=== PATIENT | male | born 1975 | race Caucasian/White ===

== ENCOUNTER → 2025-04-01 | Outpatient (CLI) | payer MEDICAID, SELFPAY ==
[2025-04-01 13:36] LABS: Hematocrit 44.3 % (40-54); Hemoglobin 16.5 g/dL (13.0-16.5); Immature Granulocytes Count 0.020 X10^3/uL (0.0-0.0); Mean Corp Hgb Conc 37.2 g/dL (32-36); Mean Corpuscular Volume 103.0 fL (80-94); Mean Platelet Vol. 10.5 fl (6.2-12.0); NRBC Flagged by Analyzer 0 % (0-5); POSITIVE COUNT YES; RBC Distribution Width CV 14.1 % (11.6-14.6); RBC Distribution Width SD 53.1 fl (35.1-43.9); Red Blood Count 4.30 M/mm3 (4.6-6.2); White Blood Count 8.9 K/mm3 (4.4-11.0)
[2025-04-01 14:01] LABS: Differential Indicated SCAN CRITERIA MET
[2025-04-01 14:03] LABS: Cholesterol 235 mg/dL (<=200); Low Density Lipoprotein Calc. 146 mg/dL; Triglycerides 180 mg/dL; Very Low Density Lipoprotein 36 mg/dL (5-40); cholesterol:hdl ratio screen 4.12
[2025-04-01 14:08] LABS: AST(SGOT) 175 U/L (<=37); Alanine Aminotransfer ALT/SGPT 91 U/L (<=46); Albumin, Serum 4.1 g/dL (3.5-5.0); Alkaline Phosphatase 170 U/L (40-129); Anion Gap 14 (5-15); BUN 6 mg/dL (4-19); BUN/Creat Ratio 9.3 RATIO (10-20); Calcium,Total 9.1 mg/dL (7.6-11.0); Carbon Dioxide 23.4 mmol/L (21.0-32.0); Chloride 101 mmol/L (98-108); Globulin 3.0 g/dL (2.2-4.2); Glucose 110 mg/dL (70-99); Potassium 4.1 mmol/L (3.3-5.1)
== END | disposition home or self-care (01) ==
LOC: LAB 12:52
DX: E78.5 Hyperlipidemia, unspecified (principal); I10 Essential (primary) hypertension
CPT/HCPCS: 36415; 80053; 80061; 85025

== ENCOUNTER → 2025-04-29 | Outpatient (CLI) | payer MEDICAID, SELFPAY ==
--- NOTE | 2025-04-29 09:33 | US_ITS ---
PROCEDURE: ABD LIMITED W/ ELASTOGRAPHY REASON FOR EXAM: ABNORMAL LEVELS OF OTHER SERUM ENZYMES COMPARISON: None. TECHNIQUE: Procedure Code: [id number] Modality: US Procedure: ABD LIMITED W/ ELASTOGRAPHY Right upper quadrant abdominal ultrasound. [facility] ElastQ Imaging shear wave elastography for non-invasive assessment of liver tissue stiffness. [facility] EPIQ Elite. FINDINGS: LIVER: Size: Enlarged (hepatomegaly) Length: 21.8 cm Echotexture: Diffusely echogenic suggesting fatty infiltration Contour: Normal Lesions: None identified Elastography: EQI Med: 12.1 kPa EQI Med Donato: 2.0 m/s IQR/Med: 27.9 %* GALLBLADDER: No stones sludge wall thickening or tenderness. COMMON BILE DUCT: Normal measuring 3.5 mm . PANCREAS: Normal Visualized portions of the right kidney are unremarkable. No right upper quadrant ascites. US/ABD Limited w/ Elastography IMPRESSION: SEVERE HEPATIC FIBROSIS / CIRRHOSIS Hepatomegaly. Diffuse fatty infiltration of the liver. Reference Values: SRU <1.37 m/s (5.7kPa): No to mild fibrosis 1.37 m/s - 2.2 m/s: Moderate to severe fibrosis >2.2 m/s (15kPa): Significant fibrosis / cirrhosis METAVIR Score F2 or higher: 1.34 m/s (5.7kPa) F3 or higher: 1.55 m/s (7.3kPa) F4: 1.80 m/s (10kPa) * If the IQR/Med is >30%, the variance in the measurements is a large and the a ccuracy of the measurement may be in question. Reading Location: [place] [id number]
--- OUTSIDE RECORDS SUMMARY | 2025-04-29 09:48 | XMS RPT_ITS | CCD ---
Author Organization [facility] Inform ion Partnership [employer]HE[employer]MANENT [employer] ARTIST [facility] Care Team Providers Care Quality Tech Name Role Phone NO FAMILY DOCTOR, NO FAMILY DOCTOR Unavailable Unavailable CHRIS KEATING Unavailable Unavailable ESTIVEN ROQUE Attending Unava ilable BRENT, PHYSICIAN Primary Care Unavailable Unavailable Primary Care Provider UnavailMark Boucher MD Primary Care Provider [phone] DINO LINDSAY Attending Unavailable ROBIN MARTINEZ Attending Unavailable ROSALINDA PINEDA Referring Unavailable BRUNA CAPELLAN Attending Unavailab LILLIANA Rebolledo Referring Unavailable LILLIANA KATE Referring Unavailable LILLIANA KATE Attending Unavailable Unavailable Primary Care Provider Unavailabl e MICLAT, MARK S Referring Unavailable MICLAT, MARK S Primary Care Unavailable MICLAT, MARK S Referring Unavailable MICLAT, MARK S Primary Care Unavailable MICLAT, MARK S Referring Unavailable MICLAT, MARK S Primary Care Unavailable MICLAT, MARK S Primary Care Unavailable ISAAC COX Referring Unavailable MICLAT, MARK S Primary Care Unavailable MICLAT, MARK S Referring Unavailable Liz Polk MD Primary Care Provider [phone] LIZ POLK Primary Care Unavailable HARMAN PAYAN Attending Unavailable Beam VSC, Zebulun Referring Unavailable Beam VSC, Zebulun Attending Unavailable Beam VSC, Zebulun Primary Care Unavailable Beam VSC, Zebulun Primary Care Unavailable Beam VSC, Zebulun Referring Unavailable Beam VSC, Zebulun Attending Unavailable Allergies Allergy Classification Reported Allergen(s) Allergy Type Date of Onset Reaction(s) Facility (6 sources) buPROPion; Translations: [BUPROPION] Drug Allergy 3 [facility] Medications Current Medications Medication Drug Class(es) Dates Sig (Normalized) Sig (Original) acetaminophen 325 mg oral tablet (3 sources) Start: 04-06-2023 End: 04-06-2023 take 1 tablet by mouth every eight hours acetaminophen (Tylenol) tablet 975 mg Start: 04-04-2023 End: 04-04-2023 take 975 mg by mouth every six hours for pain 975 mg, oral, Every 6 hours scheduled, First dose on Fri04/04/23 at 1200 If ordered PRN for pain, nurse is permitted to administer this medication for higher pain scores based on patient preference? Yes [id number] actuat albuterol 0.09 mg/actuat metered dose inhaler (13 sources) beta2-Adrenergic Agonist Start: 04-04-2023 take 2 puff(s) by inhalation every four hours for wheezing 2 puff, inhalation, Every 4 hours PRN, shortness of breath, wheezing, Starting on Fri04/04/23 at 1102 Shake well before use. Start: 04-08-2022 take 2 puff(s) by in halation every four hours as needed albuterol HFA (PROVENTIL HFA, VENTOLIN HFA) 90 mcg/actuation inhaler Inhale 2 Puffs as instructed every 4 hours as needed. 0 04/08/2022 Active take 2 puff(s) by in halation every four hours for wheezing albuterol 90 mcg/actuation aerosol powdr breath activated inhaler Inhale 2 puffs every 4 hours if needed for wheezing. Active Comment on above: Inhale 2 Puffs as in structed every 4 hours as needed. cyclobenzaprine hydrochloride 10 mg oral tablet (2 sources) Muscle Relaxant Start : 04-11 End: 04-18 take 1 tablet by mouth three times daily cyclobenzaprine (Flexeril) 10 mg tablet Indications: Closed fracture of multiple ribs of left side with delayed healing, subsequent encounter Take 1 tablet (10 mg) by mouth 3 times a day for 7 days. 21 tablet 04/11/2023 Active dicyclomine hydrochloride 20 mg oral tablet (9 sources) Anticholinergic Start : 03-05 dicyclomine (BENTYL) 20 MG tablet take 1 tablet every 6 hours as needed for abdominal pain 0 03/05/2021 Active Comment on above: Take 20 mg by mouth every 6 hours as needed. docusate sodium 100 mg oral capsule (2 sources) Start : 04-10 End: 05-11 take 1 capsule by mouth twice daily docusate sodium (Colace) 100 mg capsule Indications: Closed fracture of multiple ribs of left side with delayed healing, subsequent encounter Take 1 capsule (100 mg) by mouth 2 times a day. 60 capsule 0 04/11/2023 05/11/2023 Active folic acid 1 mg oral tablet (1 source) Start : 04-04 folic acid (Folvite) tablet 1 mg 12 hr guaiFENesin 600 mg extended release oral tablet (2 sources) Start : 04-06 End: 04-10 guaiFENesin (Mucinex) 12 hr tablet 600 mg 1 ml heparin sodium, porcine 5000 unt/ml injection (1 source) Unfractionated Heparin, Anti-coagulant Start : 04-09 inject 5000 [IU] by subcutaneous injection every eight hours 5,000 Units, subcutaneous, Every 8 hours, First dose on Fri04/09/23 at 1115 hydroCHLOROthiazide 25 mg oral tablet (11 sources) Thiazide Diuretic Start : 04-04 take 12.5 mg by mouth once daily 12.5 mg, oral, Daily, First dose on Fri04/04/23 at 1245 Start: 06-17-2022 End: 07-01-2022 hydroCHLOROthiazide (HYDRODI URIL, ESIDRIX) 12.5 mg capsule Take 12.5 mg by mouth. 0 06/17/2022 Active take 1 tablet by shira once daily hydroCHLOROthiazide (HYDRODiuril) 12.5 mg tablet Take 1 tablet (12.5 mg) by mouth once daily. Active Comment on above: Take 12.5 mg by mout h. 1 ml HYDROmorphone hydrochloride 0.2 mg/ml prefilled syringe (7 sources) Opioid Agonist Start: 04-10-2023 HYDROmorphone PF (Dilaudid) injection 0.2 mg Start: 04-07-2023 End: 04-09-2023 0.5 mg, intravenous, Every 2 hour PRN, pain severe (7-10), second line, pain breakthrough, Starting on Fri04/09/23 at 1105, Phase II/On Unit Start: 04-04-2023 End: 04-04-2023 HYDROmorphone (Dilaudid) inj ection 0.4 mg Start: 04-04-2023 End: 04-05-2023 0.5 mg, intravenous, Every 2 hour PRN, pain breakthrough, Starting on Fri04/04/23 at 1106 iv contrast (will be provided with radiology test) (1 source) Start: 08-16-2022 End: 08-17-2022 inject 1 dose intravenously once iv contrast (will be provided with radiology test) Indications: Vision loss, bilateral , Cecocentral scotoma, bilateral , Katlyn's hereditary optic neuropathy MRI Brain Inject, intravenously, once for 1 dose.No IV access, insert saline lock prior to beginning of sedation, infusion, injection of imaging exam.Discontinue saline lock post exam. If Pt. has a central line or IVAD, may access for administration according to line specific nursing protocol.Once exam is complete flush line and de-access according to line specific nursing protocol in the MR contrast administration guidelines link 1 Each 0 08/16/2022 08/17/2022 Active Comment on above: MRI Brain Inject, intravenously, once fo r 1 dose.No IV access, insert saline lock prior to beginning of sedation, infusion, injection of imaging exam.Discontinue saline lock post exam. If Pt. has a central line or IVAD, may access for administration according to line specific nursing protocol.Once exam is complete flush line and de-access according to line specific nursing protocol in the MR contrast administration guidelines link 1 ml ketorolac tromethamine 30 mg/ml injection (4 sources) Nonsteroidal Anti-inflammatory Drug, Cyclooxygenase Inhibitor Start: 04-09-2023 End: 04-09-2023 ketorolac (Toradol) injection 30 mg Start: 04-04-2023 End: 04-12-2023 take 15 mg intravenously every six hours ketorolac (Toradol) injection 15 mg lidocaine 0.04 mg/mg medicated patch (3 sources) Antiarrhythmic, Amide Local Anesthetic Start: 04-06-2023 lidocaine 4 % patch 1 patch Start: 04-04-2023 End: 04-06-2023 1 patch, transdermal, Admini ster over 12 Hours, Daily, First dose on Fri04/04/23 at 1115 On for 12 hours and off for 12 hours. Start: 04-04-2023 End: 04-04-2023 lidocaine 4 % patch 1 patch lisinopril 20 mg oral tablet (11 sources) Angiotensin Converting Enzyme Inhibitor Start: 07-18-2022 take 20 mg by mouth once daily 20 mg, oral, Daily, First dose on Fri04/04/23 at 1245 Comment on above: Take 20 mg by mouth once daily. loperamide hydrochloride 2 mg oral capsule (3 sources) Opioid Agonist Start: 03-05-2021 loperamide (IMODIUM) 2 MG capsule TAKE 2 CAPSULES for diarrhea followed by one capsule after each loose stool. not to exceed 8/24 hours 0 03/05/2021 Active magnesium oxide 400 mg oral tablet (1 source) Start: 04-05-2023 magnesium oxid e (Mag-Ox) tablet 800 mg melatonin 3 mg oral tablet (1 source) Start: 04-04-2023 melatonin tabl et 6 mg multivitamin with minerals 1 tablet (1 source) Start: 04-04-2023 multivitamin w ith minerals 1 tablet naloxone hydrochloride 40 mg/ml nasal spray (2 sources) Opioid Antagonist Start: 01-21-2025 naloxone (Na rcan) 4 mg/0.1 mL nasal spray Indications: Contusion of rib on right side, initial encounter Administer 1 spray (4 mg) into affected nostril(s) if needed for opioid reversal or respiratory depression for up to 1 dose. May repeat every 2-3 minutes if needed, alternating nostrils, until medical assistance becomes available. 1 each 01/21/2025 Active Start: 04-09-2023 naloxone (Narc an) injection 0.2 mg Nicotine (1 source) Cholinergic Nicotinic Agonist Start: 04-09-2023 End: 05-21-2023 nicotine (Nicoderm CQ) 21 mg/24 hr patch 1 patch ondansetron ODT (Zofran-ODT) disintegrating tablet 4 mg (1 source) Start: 04-04-2023 take 1 tablet by mouth every eight hours as needed ondansetron ODT (Zofran-ODT) disintegrating tablet 4 mg oxyCODONE hydrochloride 5 mg oral tablet (7 sources) Opioid Agonist Start: 01-21-2025 End: 01-23-2025 take 1 tablet by mouth every eight hours for pain oxyCODONE (Roxicodone) 5 mg immediate release tablet Indications: Contusion of rib on right side, initial encounter Take 1 tablet (5 mg) by mouth every 8 hours if needed for severe pain (7 - 10) for up to 2 days. 6 tablet 01/21/2025 01/23/2025 Active Start: 01-21-2025 End: 01-21-2025 take 5 mg by mouth once as needed for pain 5 mg, oral, Once, On Fri01/21/25 at 0545, For 1 dose, If ordered PRN for pain, nurse is permitted to administer this medication for higher pain scores based on patient preference? Yes Start: 04-11-2023 End: 04-18-2023 take 1 tablet by mouth every six hours for pain oxyCODONE (Roxicodone) 5 mg immediate release tablet Indications: Closed fracture of multiple ribs of left side with delayed healing, subsequent encounter Take 1 tablet (5 mg) by mouth every 6 hours if needed for moderate pain (4 - 6) for up to 7 days. 28 tablet 0 04/11/2023 04/18/2023 Active Start: 04-09-2023 take 1 tablet by shira th every four hours as needed 5 mg, oral, Every 4 hours PRN, pain moderate (4-6), first line, Starting on Fri04/09/23 at 1105 If ordered PRN for pain, nurse is permitted to administer this medication for higher pain scores based on patient preference? Yes Start: 04-04-2023 End: 04-10-2023 take 1 tablet by mouth every four hours as needed 10 mg, oral, Every 4 hours PRN, pain severe (7-10), first line, Starting on Fri04/09/23 at 1105 If ordered PRN for pain, nurse is permitted to administer this medication for higher pain scores based on patient preference? Yes oxygen (O2) therapy (2 sources) Start: 04-09-2023 inhalation, Co ntinuous PRN - O2/gases, other, Starting on Fri04/09/23 at 1105 Wean oxygen as tolerated, discontinue when room air pulse oximetry measures greater than 90%. Device: Nasal Cannula Rate in liters per minute: 4 LPM Keep O2 Sat Above: 90% Start: 04-04-2023 End: 04-10-2023 inhalation, Continuous PRN - O2/gases, other, Starting on Fri04/04/23 at 1103 Device: Nasal Cannula Rate in liters per minute: 2 LPM Keep O2 Sat Above: 92% pantoprazole 40 mg delayed release oral tablet (1 source) Proton Pump Inhibitor Start: 04-11-2023 pantoprazole (ProtoNix) EC tablet 40 mg phenylephrine hydrochloride 25 mg/ml ophthalmic solution (2 sources) alpha-1 Adrenergic Agonist Start: 07-25-2022 End: 07-25-2022 PHENYLephrine 2.5 % 1 Drop (AK-DILATE, LORETTA-SYNEPHRINE) Start: 06-26-2022 End: 06-26-2022 PHENYLephrine 2.5 % 1 Drop ( AK-DILATE, LORETTA-SYNEPHRINE) polyethylene glycol [id number] mg powder for oral solution (2 sources) Osmotic Laxative Start: 04-04-2023 End: 04-09-2023 17 g, oral, Daily, First dose on Fri04/09/23 at 1115 Bowel Regimen - for prevention of constipation. sertraline 50 mg oral tablet (16 sources) Serotonin Reuptake Inhibitor Start: 04-04-2023 take 100 mg by mouth once daily 100 mg, oral, Daily, First dose on Fri04/04/23 at 1115 Start: 08-14-2021 take 1 tablet by shira th once daily sertraline (ZOLOFT) 50 mg tablet Take 1 tablet by mouth once daily. 30 tablet 0 08/14/2021 Active Start: 03-29-2021 take 1 tablet by shira th once daily sertraline (ZOLOFT) 100 MG tablet Take 1 tablet by mouth once daily. 0 03/29/2021 Active Comment on above: Take 1 tablet by shira th once daily. thiamine 100 mg oral tablet (15 sources) Start: 04-04-2023 take 100 mg by mouth once daily 100 mg, oral, Daily, First dose on Fri04/04/23 at 1115 Start: 08-13-2021 take 1 tablet by shira th three times daily thiamine (VITAMIN B1) 100 mg tablet 1 tablet by ORAL/FEEDING TUBE route three times daily for 260 doses. 90 tablet 2 08/13/2021 Active Comment on above: 1 tablet by ORAL/FEE DING TUBE route three times daily for 260 doses. Take 100 mg by mouth once daily. topiramate 50 mg oral tablet (3 sources) Start: 03-06-20 take 1 tablet by mouth twice daily topiramate (TOPAMAX) 50 MG tablet TAKE 1 TABLET BY MOUTH TWICE DAILY 0 03/06/2021 Active tropicamide 10 mg/ml ophthalmic solution (2 sources) Anticholinergic Start: 07-25-19 End: 07-25-19 tropicamide 1 % 1 Drop (MYDRIACYL) Start: 06-26-2022 End: 06-26-2022 tropicamide 1 % 1 Drop (MYDR IACYL) Completed/Discontinued Medications Medication Drug Class(es) Dates Sig (Normalized) Sig (Original) calcium chloride 0.0014 meq/ml / potassium chloride 0.004 meq/ml / sodium chloride 0.103 meq/ml / sodium lactate 0.028 meq/ml injectable solution (2 sources) Start: 01-21-2025 End: 01-21-2025 1,000 mL, intravenous, at 999 mL/hr, Administer over 1 Hours, Once, On Fri01/21/25 at 0155, For 1 dose Start: 04-04-2023 End: 04-06-2023 take 75 mL intravenously every hour 75 mL/hr, intravenous, Continuous, Starting on Fri04/04/23 at 1115 chlordiazePOXIDE hydrochloride 25 mg oral capsule (1 source) Benzodiazepine Start: 04-04-2023 End: 04-05-2023 take 1 capsule by mouth every six hours chlordiazePOXIDE (Librium) capsule 25 mg clonazePAM 0.5 mg oral tablet (10 sources) Benzodiazepine Start: 07-23-2022 take 1 tablet by mouth every twelve hours as needed clonazePAM (KLONOPIN) 0.5 mg tablet Take 0.5 mg by mouth twice daily as needed. 0 07/23/2022 Active Comment on above: Take 0.5 mg by mouth twice daily as needed. 100 ml dexmedetomidine 0.004 mg/ml injection (1 source) Central alpha-2 Adrenergic Agonist Start: 04-05-2023 End: 04-06-2023 dexmedeTOMIDine in NS (Precedex) 400 mcg in 100 mL (4 mcg/mL) infusion 0.3 ml enoxaparin sodium 100 mg/ml prefilled syringe (1 source) Low Molecular Weight Heparin Start: 04-04-2023 End: 04-10-2023 inject 30 mg by subcutaneous injection every twelve hours 30 mg, subcutaneous, Every 12 hours, First dose on Fri04/04/23 at 1115 1 ml fentaNYL 0.05 mg/ml injection (2 sources) Opioid Agonist Start: 04-09-2023 End: 04-09-2023 fentaNYL PF (Sublimaze) injection 25 mcg Start: 04-04-2023 End: 04-04-2023 fentaNYL PF (Sublimaze) inje ction 50 mcg hydromorphone COMPENSATOR 0.5 mg/mL in NS opioid naive (2 sources) Start: 04-09-2023 End: 04-10-2023 hydromorphone COMPENSATOR 0.5 mg/mL in NS opioid naive Start: 04-05-2023 End: 04-07-2023 hydromorphone COMPENSATOR 0.5 mg/mL in NS opioid naive iohexol (OMNIPaque) 350 mg iodine/mL solution 100 mL (1 source) Start: 01-20-2025 End: 01-20-2025 100 mL, intravenous, Once in imaging, Starting on Fri01/20/25 at 2336, For 1 dose iohexol (OMNIPaque) 350 mg iodine/mL solution 90 mL (1 source) Start: 04-04-2023 End: 04-04-2023 iohexol (OMNIPaque) 350 mg iodine/mL solution 90 mL ketamine 100 mg/ml injectable solution (1 source) General Anesthetic Start: 04-09-2023 End: 04-09-2023 ketamine (Ketalar) solution 25 mg 50 ml magnesium sulfate 40 mg/ml injection (4 sources) Start: 01-21-2025 End: 01-21-2025 2 g, intravenous, at 25 mL/hr, Administer over 2 Hours, Once, On Fri01/21/25 at 0255, For 1 dose Start: 04-06-2023 End: 04-07-2023 magnesium sulfate IV 2 g Start: 04-04-2023 End: 04-04-2023 magnesium sulfate IV 4 g methocarbamol 500 mg oral tablet (2 sources) Muscle Relaxant Start: 04-04-2023 End: 04-10-2023 methocarbamol (Robaxin) tablet 1,000 mg Start: 04-04-2023 End: 04-04-2023 take 1 tablet by mouth every six hours 500 mg, oral, Every 6 hours, First dose on Fri04/04/23 at 1115 1 ml morphine sulfate 4 mg/ml prefilled syringe (3 sources) Opioid Agonist Start: 01-21-2025 End: 01-21-2025 4 mg, intravenous, Once, On Fri01/21/25 at 0255, For 1 dose Start: 04-04-2023 End: 04-04-2023 morphine injection 4 mg 2 ml ondansetron 2 mg/ml injection (14 sources) Serotonin-3 Receptor Antagonist Start: 01-21-2025 End: 01-21-2025 4 mg, intravenous, Once, On Fri01/21/25 at 0015, For 1 dose, When administering via IV Push, administer over 3-5 minutes. Start: 04-11-2023 take 1 tablet by shira th every eight hours for nausea ondansetron ODT (Zofran-ODT) 4 mg disintegrating tablet Indications: Closed fracture of multiple ribs of left side with delayed healing, subsequent encounter Take 1 tablet (4 mg) by mouth every 8 hours if needed for nausea. 12 tablet 04/11/2023 Active Start: 04-04-2023 End: 04-04-2023 ondansetron (Zofran) injecti on 4 mg Start: 03-05-2021 ondansetron (Z OFRAN-ODT) 8 MG TBDP disintegrating tablet take 1 tablet by shira th every eight hours as needed ondansetron (ZOFRAN) 4 mg tablet Take 4 mg by mouth every 8 hours as needed for nausea/vomiting (up to 2 doses per day). 0 Active Comment on above: Take 4 mg by mouth e very 8 hours as needed for nausea/vomiting (up to 2 doses per day). PHENobarbital 65 mg/ml injectable solution (1 source) Start: 04-05-20 End: 04-05-20 PHENobarbital (Luminal) injection 130 mg potassium chloride 20 meq powder for oral solution (7 sources) Start: 01-22-20 End: 01-22-20 take 1 [oz_av] by mouth once 40 mEq, oral, Once, On Fri01/21/25 at 0040, For 1 dose, Dissolve each packet in 4 ounces of water = 5 mEq per 1 oz fluid. Start: 04-04-2023 End: 04-07-2023 potassium chloride CR (Klor- Con M20) ER tablet 40 mEq Start: 04-04-2023 End: 04-04-2023 take 20 mEq intravenously every two hours potassium chloride 20 mEq in 100 mL IV premix potassium phosphates 15 mmol in dextrose 5 % in water (D5W) 250 mL IV (2 sources) Start: 04-06-2023 End: 04-06-2023 potassium phosphates 15 mmol in dextrose 5 % in water (D5W) 250 mL IV Start: 04-05-2023 End: 04-05-2023 potassium phosphates 15 mmol in dextrose 5 % in water (D5W) 250 mL IV potassium phosphates 15 mmol in dextrose 5% 250 mL IV (1 source) Start: 01-21-2025 End: 01-21-2025 15 mmol, intravenous, at 63. 8 mL/hr, Administer over 4 Hours, Once, On Fri01/21/25 at 0130, For 1 dose, Each 3 mmol contains 4.4 mEq potassium. 1000 ml sodium chloride 9 mg /ml injection (1 source) Start: 04-04-2023 End: 04-04-2023 sodium chloride 0.9 % bolus 500 mL Problems Active Problems Problem Classification Problem Date Documented Date Episodic/Chronic Alcohol-related disorders (6 sources) Alcohol abuse; Translations: [Alcohol abuse, uncomplicated] Onset: 08-09-2021 08-13-2021 Chronic Blindness and vision defects (4 sources) Bilateral visual impairment; Translations: [Unqualified visual loss, both eyes] Onset: 08-02-2022 Chronic Disorders of lipid metabolism (1 source) Hyperlipidemia, unspecified; Translations: [Hyperlipidemia, unspecified] Onset: 04-07-2025 Chronic E Codes: Fall (9 sources) Fall; Translations: [Unspecified fall, initial encounter] Onset: 04-06-2023 04-04-2023 Episodic Essential hypertension (7 sources) Essential (primary) hypertension; Translations: [Essential hypertension] Onset: 03-06-2021 Chronic Fluid and electrolyte disorders (3 sources) Hypokalemia; Translations: [Hypokalemia] Onset: 06-17-2022 Episodic Mood disorders (6 sources) Depressive disorder; Translations: [Depression] Onset: 08-09-2021 08-13-2021 Chronic Other eye disorders (1 source) Katlyn's optic atrophy; 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] Chronic Other eye disorders (1 source) Hereditary optic atrophy; 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] Onset: 07-25-2022 Chronic Other eye disorders (1 source) Disorder of lacrimal gland; Translations: [Dry eye syndrome of bilateral lacrimal glands] Episodic Other fractures (1 source) Closed fracture of multiple ribs; Translations: [Multiple fractures of ribs, left side, subsequent encounter for fracture with delayed healing] 04-11-2023 Episodic Other fractures (1 source) Multiple fractures of ribs, left side, initial encounter for closed fracture; Translations: [Multiple fractures of ribs, left side, initial encounter for closed fracture] Onset: 05-12-2023 Episodic Other liver diseases (6 sources) Steatosis of liver; Translations: [Fatty (change of) liver, not elsewhere classified] Onset: 08-10-2021 08-13-2021 Chronic Other liver diseases (1 source) Compensatory lobar hyperplasia of liver; Translations: [Other specified diseases of liver] Chronic Other liver diseases (1 source) Decreased liver function; Translations: [Other specified diseases of liver] Chronic Other liver diseases (1 source) Other specified diseases of liver; Translations: [Other specified diseases of liver] Onset: 07-09-2022 Chronic Other liver diseases (1 source) Abnormal levels of other serum enzymes; Translations: [Abnormal levels of other serum enzymes] Onset: 04-12-2025 Episodic Other lower respiratory disease (1 source) Dyspnea, unspecified; Translations: [Dyspnea, unspecified] Onset: 12-01-2017 Episodic Other lower respiratory disease (1 source) Cough; Translations: [Complaining of cough] Episodic Spondylosis; intervertebral disc disorders; other back problems (1 source) Prolapsed lumbar intervertebral disc; Translations: [Other intervertebral disc displacement, lumbar region] 04-04-2023 Chronic Substance-related disorders (6 sources) Nicotine dependence; Translations: [Nicotine dependence, unspecified, uncomplicated] Onset: 08-10-2021 08-13-2021 Chronic Superficial injury; contusion (3 sources) Contusion of right front wall of thorax, initial encounter; Translations: [Contusion of chest wall] Onset: 01-20-2025 01-21-2025 Episodic Syncope (4 sources) Syncope; Translations: [Syncope and collapse] Onset: 01-20-2025 01-21-2025 Episodic Unclassified (1 source) Tachycardia, unspecified / R00.0(ICD-9) Onset: 12-01-2017 Unclassified (2 sources) Poisoning by heroin, accidental (unintentional), init encntr / T40.1X1A(ICD-9) Onset: 12-01-2017 Unclassified (1 source) Nicotine dependence, unspecified, uncomplicated / F17.200(ICD-9) Onset: 12-01-2017 Unclassified (1 source) Dyspnea, unspecified / R06.00(ICD-9) Onset: 12-01-2017 Unclassified (2 sources) Opioid use, unspecified, uncomplicated / F11.90(ICD-9) Onset: 12-01-2017 Unclassified (1 source) Cough, unspecified; Translations: [Cough, unspecified] Onset: 07-09-2022 Past or Other Problems Problem Classification Problem Date Documented Da te Episodic/Chronic Abdominal pain (6 sources) Epigastric pain; Translations: [Epigastric pain] Onset: 08-09-2021 08-13-2021 Episodic Blindness and vision defects (5 sources) Blurring of visual image; Translations: [Other visual disturbances] Onset: 07-15-2022 Episodic Other fractures (8 sources) Closed fracture of one rib; Translations: [Fracture of one rib, unspecified side, initial encounter for closed fracture] Onset: 04-04-2023 04-04-2023 Episodic Other fractures (6 sources) Closed fracture of multiple left ribs; Translations: [Multiple fractures of ribs, left side, initial encounter for closed fracture] Onset: 04-04-2023 04-04-2023 Episodic Other liver diseases (6 sources) Elevated liver enzymes level; Translations: [Abnormal levels of other serum enzymes] Onset: 08-09-2021 08-13-2021 Episodic Pancreatic disorders (not diabetes) (6 sources) Pancreatitis; Translations: [Acute pancreatitis without necrosis or infection, unspecified] Onset: 08-09-2021 08-13-2021 Episodic Unclassified (1 source) Poisoning by heroin, accidental (unintentional), init encntr; Translations: [Poisoning by heroin, accidental (unintentional), init encntr] Onset: 12-01-2017 Unclassified (1 source) Tachycardia, unspecified; Translations: [Tachycardia, unspecified] Onset: 12-01-2017 Unclassified (1 source) Opioid use, unspecified, uncomplicated; Translations: [Opioid use, unspecified, uncomplicated] Onset: 12-01-2017 Results Test Name Value Interpretation Reference Range Facility CBC W/Diff, Automatedon 10-3 PLT EST ADEQUATE Normal ADEQ [facility] Comment on above: Performed By: #### L 500.4050, L100.0100, L500.4100 #### [facility] [address] [place], [address] Comprehensive Metabolic Prof [facility] 04-01-2025 Albumin [Mass/Vol] 4.1 g/dL Normal 3.5-5.0 [facility] Comment on above: Performed By: #### L 500.4050, L100.0100, L500.4100 #### [facility] [address] [place], [address] Albumin/Globulin [Mass ratio] 1.4 {ratio} Normal 0.9-2.4 [facility] Comment on above: Performed By: #### L 500.4050, L100.0100, L500.4100 #### [facility] [address] [place], [address] ALK PHOS 170 U/L High 40-129 [facility] Comment on above: Performed By: #### L 500.4050, L100.0100, L500.4100 #### [facility] [address] [place], [address] ALT [Catalytic activity/Vol] 91 U/L High <=46 [facility] Comment on above: Performed By: #### L 500.4050, L100.0100, L500.4100 #### [facility] [address] [place], [address] AST [Catalytic activity/Vol] 175 U/L High <=37 [facility] Comment on above: Performed By: #### L 500.4050, L100.0100, L500.4100 #### [facility] [address] [place], [address] Bilirubin [Mass/Vol] 0.91 mg/dL Normal 0.00-1.30 [facility] Comment on above: Performed By: #### L 500.4050, L100.0100, L500.4100 #### [facility] [address] [place], [address] BUN/CRE 9.3 RATIO Low 10-20 [facility] Comment on above: Performed By: #### L 500.4050, L100.0100, L500.4100 #### [facility] [address] [place], [address] Calcium [Mass/Vol] 9.1 mg/dL Normal 7.6-11.0 [facility] Comment on above: Performed By: #### L 500.4050, L100.0100, L500.4100 #### [facility] [address] [place], [address] Chloride [Moles/Vol] 101 mmol/L Normal 98-108 [facility] Comment on above: Performed By: #### L 500.4050, L100.0100, L500.4100 #### [facility] [address] [place], [address] CO2 [Moles/Vol] 23.4 mmol/L Normal 21.0-32.0 [facility] Comment on above: Performed By: #### L 500.4050, L100.0100, L500.4100 #### [facility] [address] [place], [address] Creatinine [Mass/Vol] 0.66 mg/dL Low 0.70-1.20 [facility] Comment on above: Performed By: #### L 500.4050, L100.0100, L500.4100 #### [facility] [address] [place], [address] GAP 14 Normal 5-15 [facility] Comment on above: Performed By: #### L 500.4050, L100.0100, L500.4100 #### [facility] [address] [place], [address] GFR/1.73 sq M.predicted among non-blacks MDRD (S/P/Bld) [Vol rate/Area] 116 mL/min/{1.73_m2} Normal >60 [facility] Comment on above: Result Comment: mL/m in/1.73m2 CKD-EPI Creatinine Equation (2020) Performed By: #### L 500.4050, L100.0100, L500.4100 #### [facility] [address] [place], [address] Globulin (S) [Mass/Vol] 3.0 g/dL Normal 2.2-4.2 [facility] Comment on above: Performed By: #### L 500.4050, L100.0100, L500.4100 #### [facility] [address] [place], [address] Glucose [Mass/Vol] 110 mg/dL High 70-99 [facility] Comment on above: Performed By: #### L 500.4050, L100.0100, L500.4100 #### [facility] [address] [place], [address] Potassium [Moles/Vol] 4.1 mmol/L Normal 3.3-5.1 [facility] Comment on above: Result Comment: Hemo lysis present, Results??could be affected. ?? Performed By: #### L 500.4050, L100.0100, L500.4100 #### [facility] [address] [place], [address] Sodium [Moles/Vol] 138 mmol/L Normal 133-145 [facility] Comment on above: Performed By: #### L 500.4050, L100.0100, L500.4100 #### [facility] [address] [place], [address] T PROT 7.1 g/dL Normal 5.9-8.4 [facility] Comment on above: Performed By: #### L 500.4050, L100.0100, L500.4100 #### [facility] [address] [place], [address] Urea nitrogen [Mass/Vol] 6 mg/dL Normal 4-19 [facility] Comment on above: Performed By: #### L 500.4050, L100.0100, L500.4100 #### [facility] [address] [place], [address] Lipid Profileon 04-01-2025 CHOL:HDL 4.12 Normal [facility] Comment on above: Performed By: #### L 500.4050, L100.0100, L500.4100 #### [facility] [address] [place], [address] Cholesterol [Mass/Vol] 235 mg/dL High <=200 [facility] Comment on above: Result Comment: Chol esterol level, Desirable <200 mg/dL Borderline high cholesterol 200-239 mg/dL High cholesterol >=240 mg/dL Recommendations of the NCEP Adult Treatment Panel for the following risk-cutoff thresholds for the [place] population. Performed By: #### L 500.4050, L100.0100, L500.4100 #### [facility] [address] [place], [address] Cholesterol in HDL [Mass/Vol] 57 mg/dL Normal [facility] Comment on above: Result Comment: Maya onal Cholesterol Education Program (NCEP) guidelines: <40 mg/dL: Low HDL-cholesterol (major risk factor for CHD) >= 60 mg/dL: High HDL-cholesterol (negative risk factor for CHD) HDL-cholesterol is affected by a number of factors, e.g. smoking, exercise, hormones, sex and age. Performed By: #### L 500.4050, L100.0100, L500.4100 #### [facility] [address] [place], [address] Cholesterol in LDL [Mass/Vol] 146 mg/dL Normal [facility] Comment on above: Result Comment: Bord akheiy=031-528 mg/dL Higher Wxph=921 mg/dL or greater Gallardo Equation 2020 for LDL-C Performed By: #### L 500.4050, L100.0100, L500.4100 #### [facility] [address] [place], [address] Cholesterol in VLDL [Mass/Vol] 36 mg/dL Normal 5-40 [facility] Comment on above: Performed By: #### L 500.4050, L100.0100, L500.4100 #### [facility] [address] [place], [address] Triglyceride [Mass/Vol] 180 mg/dL Normal [facility] Comment on above: Result Comment: The drugs N-Acetylcysteine and Metamizole may falsely depress this assay. Normal range: <150 mg/dL Borderline High: 150-199 mg/dL High: 200-499 mg/dL Very High: >500 mg/dL Performed By: #### L 500.4050, L100.0100, L500.4100 #### [facility] [address] [place], [address] Blood type and Indirect anti body screen panel (Bld)on 01-21-2025 ABO group Nom (Bld) A [facility] Blood group antibody screen Ql Negative [facility] D Ag Ql (Bld) Positive [facility] CBC W Auto Differential pane l (Bld)on 01-21-2025 Basophils (Bld) [#/Vol] 0.08 10*3/uL [facility] Basophils/100 WBC (Bld) 1.0 % 0.0 - 2.0 % [facility] Eosinophils (Bld) [#/Vol] 0.21 10*3/uL [facility] Eosinophils/100 WBC (Bld) 2.6 % 0.0 - 6.0 % [facility] Erythrocyte distribution width (RBC) [Ratio] 14.0 % 11.5 - 14.5 % [facility] Hematocrit (Bld) [Volume fraction] 44.4 % 41.0 - 52.0 % [facility] Hemoglobin (Bld) [Mass/Vol] 16.7 g/dL 13.5 - 17.5 g/dL [facility] Immature granulocytes (Bld) [#/Vol] 0.02 10*3/uL [facility] Immature granulocytes/100 WBC (Bld) 0.2 % 0.0 - 0.9 % [facility] Comment on above: Immature Granulocyte Count (IG) includes promyelocytes, myelocytes and metamyelocytes but does not include bands. Percent differential counts (%) should be interpreted in the context of the absolute cell counts (cells/UL). Interpretation and review of laboratory results Abnormal [facility] Lymphocytes (Bld) [#/Vol] 3.35 10*3/uL [facility] Lymphocytes/100 WBC (Bld) 41.3 % 13.0 - 44.0 % [facility] MCH (RBC) [Entitic mass] 36.7 pg High 26.0 - 34.0 pg [facility] MCHC (RBC) [Mass/Vol] 37.6 g/dL High 32.0 - 36.0 g/dL [facility] MCV (RBC) [Entitic vol] 98 fL 80 - 100 fL [facility] Monocytes (Bld) [#/Vol] 0.60 10*3/uL [facility] Monocytes/100 WBC (Bld) 7.4 % 2.0 - 10.0 % [facility] Neutrophils (Bld) [#/Vol] 3.85 10*3/uL [facility] Comment on above: Percent differential counts (%) should be interpreted in the context of the absolute cell counts (cells/uL). Neutrophils/100 WBC (Bld) 47.5 % 40.0 - 80.0 % [facility] Nucleated RBC/100 WBC (Bld) [Ratio] 0.0 % [facility] Platelets (Bld) [#/Vol] 201 10*3/uL [facility] RBC (Bld) [#/Vol] 4.55 10*6/uL [facility] WBC (Bld) [#/Vol] 8.1 10*3/uL [facility] ECG 12-LEADon 01-21-2025 ECG 12-LEAD Ventricular Rate 62 Atrial Rate 62 P-R Interval 154 QRS Duration 74 Q-T Interval 518 QTC Calculation(Bazett) 525 P [place] 65 R [place] 23 T [place] 64 QRS Count 10 Q Onset 223 P Onset 146 P Offset 193 T Offset 482 QTC Fredericia 524 Diagnosis Normal sinus rhythm Nonspecific ST abnormality Prolonged QT Abnormal ECG When compared with ECG of 21-JAN-2025 02:49, (unconfirmed) Criteria for Septal infarct are no longer Present Nonspecific T wave abnormality now evident in Lateral leads See ED provider note for full interpretation and clinical correlation Confirmed by Quincy Obrien ([id number]) on 01/26/2025 10:25:07 AM Normal [facility] ECG 12-LEAD Ventricular Rate 79 Atrial Rate 79 P-R Interval 142 QRS Duration 86 Q-T Interval 474 QTC Calculation(Bazett) 543 P [place] 61 R [place] 13 T [place] 34 QRS Count 13 Q Onset 223 P Onset 152 P Offset 208 T Offset 460 QTC Fredericia 519 Diagnosis Normal sinus rhythm Septal infarct , age undetermined Prolonged QT Abnormal ECG When compared with ECG of 21-JAN-2025 02:46, (unconfirmed) Sinus rhythm has replaced Junctional rhythm Septal infarct is now Present ST no longer depressed in Inferior leads Nonspecific T wave abnormality has replaced inverted T waves in Inferior leads Nonspecific T wave abnormality no longer evident in Lateral leads See ED provider note for full interpretation and clinical correlation Confirmed by Quincy Obrien ([id number]) on 01/26/2025 10:24:49 AM Normal [facility] ECG 12-LEAD Ventricular Rate 79 Atrial Rate 79 P-R Interval 144 QRS Duration 90 Q-T Interval 448 QTC Calculation(Bazett) 513 P [place] 51 R [place] -10 T [place] 18 QRS Count 13 Q Onset 222 P Onset 150 P Offset 199 T Offset 446 QTC Fredericia 491 Diagnosis Undetermined rhythm Nonspecific ST and T wave abnormality Abnormal ECG When compared with ECG of 09-APR-2023 11:33, Current undetermined rhythm precludes rhythm comparison, needs review Nonspecific T wave abnormality now evident in Anterolateral leads See ED provider note for full interpretation and clinical correlation Confirmed by Quincy Obrien ([id number]) on 01/26/2025 10:24:15 AM Normal [facility] Lactateon 01-21-2025 Lactate [Moles/Vol] 2.3 mmol/L High 0.4 - 2. 0 mmol/L [facility] Lactate [Moles/Vol] 2.3 mmol/L High 0.4-2.0 [facility] Comment on above: Order Comment: Venip uncture immediately after or during the administration of Metamizole may lead to falsely low results. Testing should be performed immediately prior to Metamizole dosing. Performed By: #### 2 524-7 #### MARIELLE BRUNNER ([id number]) [facility] ([facility]) [address] [place] [address] Lactate [Moles/Vol]on 2024 Interpretation and review of laboratory results Abnormal [facility] Venipuncture immedia tely after or during the administration of Metamizole may lead to falsely low results. Testing should be performed immediately prior to Metamizole dosing. [facility] Magnesiumon 01-21-2025 Magnesium [Mass/Vol] 1.78 mg/dL 1.60 - 2.40 mg/dL [facility] Magnesium [Mass/Vol]on 01-21 Interpretation and review of laboratory results Normal [facility] No Panel Informationon 01-21 [facility] No acute process identified in the chest, abdomen or pelvis. Thoracic and lumbar spine intact. MACRO: None. Signed by: Laci Moe 01/21/2025 12:21 AM Dictation workstation: [id number] MMODAL Interpreted By: Laci Tee ala, STUDY: CT CHEST ABDOMEN PELVIS W IV CONTRAST; CT LUMBAR SPINE RETROSPECTIVE RECONSTRUCTION PROTOCOL; CT THORACIC SPINE RETROSPECTIVE RECONSTRUCTION PROTOCOL; 01/20/2025 11:54 pm INDICATION: Signs/Symptoms:Trauma; Signs/Symptoms:trauma. COMPARISON: None. ACCESSION NUMBER(S): [id number]; [id number]; [id number] ORDERING CLINICIAN: HARMAN PAYAN TECHNIQUE: Contiguous axial images of the chest, abdomen, and pelvis were obtained after the intravenous administration of iodinated contrast. Coronal and sagittal reformatted images were reconstructed from the axial data. Additional CT imaging of the thoracic and lumbar spine was performed with coronal and sagittal reformatted images that were created and reviewed. FINDINGS: CT CHEST: Heart size normal. Thoracic aorta intact. No effusion. There is atelectasis dependent portion of the lungs. No pneumothorax. Prior internal fixation of left posterior ribs. CT ABDOMEN/PELVIS: There is steatosis of the liver. The gallbladder, adrenals pancreas spleen and kidneys are unremarkable. No hydronephrosis. Bladder within normal limits. No bowel obstruction. No appendicitis or colitis. No free fluid or adenopathy. Normal caliber aorta. THORACIC SPINE: Thoracic spine normally aligned. Vertebral body heights and disc spaces are maintained. No acute fracture or dislocation. LUMBAR SPINE: Lumbar spine alignment normal. Moderate to advanced degenerative disc disease L5-S1. No acute fracture or dislocation. MMODAL Laci Moe MD - 01/21/2025 Interpreted By: Laci Moe, STUDY: CT CHEST ABDOMEN PELVIS W IV CONTRAST; CT LUMBAR SPINE RETROSPECTIVE RECONSTRUCTION PROTOCOL; CT THORACIC SPINE RETROSPECTIVE RECONSTRUCTION PROTOCOL; 01/20/2025 11:54 pm INDICATION: Signs/Symptoms:Trauma; Signs/Symptoms:trauma. COMPARISON: None. ACCESSION NUMBER(S): [id number]; [id number]; [id number] ORDERING CLINICIAN: HARMAN PAYAN TECHNIQUE: Contiguous axial images of the chest, abdomen, and pelvis were obtained after the intravenous administration of iodinated contrast. Coronal and sagittal reformatted images were reconstructed from the axial data. Additional CT imaging of the thoracic and lumbar spine was performed with coronal and sagittal reformatted images that were created and reviewed. FINDINGS: CT CHEST: Heart size normal. Thoracic aorta intact. No effusion. There is atelectasis dependent portion of the lungs. No pneumothorax. Prior internal fixation of left posterior ribs. CT ABDOMEN/PELVIS: There is steatosis of the liver. The gallbladder, adrenals pancreas spleen and kidneys are unremarkable. No hydronephrosis. Bladder within normal limits. No bowel obstruction. No appendicitis or colitis. No free fluid or adenopathy. Normal caliber aorta. THORACIC SPINE: Thoracic spine normally aligned. Vertebral body heights and disc spaces are maintained. No acute fracture or dislocation. LUMBAR SPINE: Lumbar spine alignment normal. Moderate to advanced degenerative disc disease L5-S1. No acute fracture or dislocation. IMPRESSION: No acute process identified in the chest, abdomen or pelvis. Thoracic and lumbar spine intact. MACRO: None. Signed by: Laci Moe 01/21/2025 12:21 AM Dictation workstation: [id number] [facility] Work Phone: [facility] Work Phone: CT HEAD: 1. No acute intracranial abnormality or calvarial fracture. CT MAXILLOFACIAL SKELETON: 1. No acute facial bone fracture. CT CERVICAL SPINE: 1. No acute fracture or traumatic malalignment of the cervical spine. MACRO: None. Signed by: Laci Moe 01/21/2025 12:04 AM Dictation workstation: [id number] MMODAL Interpreted By: Laci Tee ala, STUDY: CT HEAD W/O CONTRAST TRAUMA PROTOCOL; CT FACIAL BONES WO IV CONTRAST; CT CERVICAL SPINE WO IV CONTRAST; CT 3D RECONSTRUCTION; 01/20/2025 11:46 pm INDICATION: Signs/Symptoms:trauma; Signs/Symptoms:fall. COMPARISON: 04/04/2023 ACCESSION NUMBER(S): [id number]; [id number]; [id number]; [id number] ORDERING CLINICIAN: HARMAN PAYAN TECHNIQUE: Axial noncontrast images of the head with coronal and sagittal reformatted images. Axial noncontrast images of the facial bones with coronal and sagittal reformatted images. 3D facial reconstructions were created on an independent workstation and reviewed. Axial noncontrast images of the cervical spine with coronal and sagittal reformatted images. FINDINGS: CT HEAD: BRAIN PARENCHYMA: No acute intraparenchymal hemorrhage or parenchymal evidence of acute large territory ischemic infarct. No mass-effect. Liriano-white matter distinction is preserved. VENTRICLES and EXTRA-AXIAL SPACES: No acute extra-axial or intraventricular hemorrhage. No effacement of cerebral sulci. Ventricles and sulci are age-concordant. MASTOIDS: Well-aerated. CALVARIUM: No skull fracture. CT MAXILLOFACIAL SKELETON: FACIAL BONES: No acute facial bone fracture. The bony orbits are intact. ORBITS: The globes, extraocular muscles, and optic nerve sheath complexes are intact. No retrobulbar or subperiosteal hematoma. SOFT TISSUES: No discernible acute abnormality. PARANASAL SINUSES: No hemorrhage or air-fluid levels within the paranasal sinuses. OTHER FINDINGS: None. CT CERVICAL SPINE: PREVERTEBRAL SOFT TISSUES: Within normal limits. CRANIOCERVICAL JUNCTION: Intact. ALIGNMENT: No traumatic malalignment or traumatic facet widening. VERTEBRAE: No acute fracture. Vertebral body heights are maintained. SPINAL CANAL/INTERVERTEBRAL DISCS: No high-grade spinal canal stenosis. Multilevel mild degenerative disc disease. NEURAL FORAMINA: No significant neural foraminal stenosis. Multilevel mild facet arthropathy. OTHER: None. MMODAL Laci Moe MD - 01/21/2025 Interpreted By: Laci Moe, STUDY: CT HEAD W/O CONTRAST TRAUMA PROTOCOL; CT FACIAL BONES WO IV CONTRAST; CT CERVICAL SPINE WO IV CONTRAST; CT 3D RECONSTRUCTION; 01/20/2025 11:46 pm INDICATION: Signs/Symptoms:trauma; Signs/Symptoms:fall. COMPARISON: 04/04/2023 ACCESSION NUMBER(S): [id number]; [id number]; [id number]; [id number] ORDERING CLINICIAN: HARMAN PAYAN TECHNIQUE: Axial noncontrast images of the head with coronal and sagittal reformatted images. Axial noncontrast images of the facial bones with coronal and sagittal reformatted images. 3D facial reconstructions were created on an independent workstation and reviewed. Axial noncontrast images of the cervical spine with coronal and sagittal reformatted images. FINDINGS: CT HEAD: BRAIN PARENCHYMA: No acute intraparenchymal hemorrhage or parenchymal evidence of acute large territory ischemic infarct. No mass-effect. Liriano-white matter distinction is preserved. VENTRICLES and EXTRA-AXIAL SPACES: No acute extra-axial or intraventricular hemorrhage. No effacement of cerebral sulci. Ventricles and sulci are age-concordant. MASTOIDS: Well-aerated. CALVARIUM: No skull fracture. CT MAXILLOFACIAL SKELETON: FACIAL BONES: No acute facial bone fracture. The bony orbits are intact. ORBITS: The globes, extraocular muscles, and optic nerve sheath complexes are intact. No retrobulbar or subperiosteal hematoma. SOFT TISSUES: No discernible acute abnormality. PARANASAL SINUSES: No hemorrhage or air-fluid levels within the paranasal sinuses. OTHER FINDINGS: None. CT CERVICAL SPINE: PREVERTEBRAL SOFT TISSUES: Within normal limits. CRANIOCERVICAL JUNCTION: Intact. ALIGNMENT: No traumatic malalignment or traumatic facet widening. VERTEBRAE: No acute fracture. Vertebral body heights are maintained. SPINAL CANAL/INTERVERTEBRAL DISCS: No high-grade spinal canal stenosis. Multilevel mild degenerative disc disease. NEURAL FORAMINA: No significant neural foraminal stenosis. Multilevel mild facet arthropathy. OTHER: None. IMPRESSION: CT HEAD: 1. No acute intracranial abnormality or calvarial fracture. CT MAXILLOFACIAL SKELETON: 1. No acute facial bone fracture. CT CERVICAL SPINE: 1. No acute fracture or traumatic malalignment of the cervical spine. MACRO: None. Signed by: Laci Moe 01/21/2025 12:04 AM Dictation workstation: [id number] [facility] Work Phone: No Panel InformationOrdered By: Laci Moe on 01-21-2025 [facility] Work Phone: Phosphate [Mass/Vol]on 01-21 Interpretation and review of laboratory results Abnormal [facility] Phosphoruson 01-21-2025 Phosphate [Mass/Vol] 2.2 mg/dL Low 2.5 - 4 .9 mg/dL [facility] Tropinin I.cardiac panel Hig h sensitivity methodon 01-21-2025 Interpretation and review of laboratory results Normal [facility] Less than 99th perce ntile of normal range cutoff- Female and children under 18 years old <14 ng/L; Male <21 ng/L: Negative Repeat testing should be performed if clinically indicated. Female and children under 18 years old 14-50 ng/L; Male 21-50 ng/L: Consistent with possible cardiac damage and possible increased clinical risk. Serial measurements may help to assess extent of myocardial damage. >50 ng/L: Consistent with cardiac damage, increased clinical risk and myocardial infarction. Serial measurements may help assess extent of myocardial damage. NOTE: Children less than 1 year old may have higher baseline troponin levels and results should be interpreted in conjunction with the overall clinical context. NOTE: Troponin I testing is performed using a different testing methodology at [facility] than at other [facility]. Direct result comparisons should only be made within the same method. [facility] Troponin I.cardiac panelon 0 01-21-2025 Tropinin I.cardiac panel High sensitivity method 4 ng/L Normal 0-20 [facility] Comment on above: Order Comment: Venip uncture immediately after or during the administration of Metamizole may lead to falsely low results. Testing should be performed immediately prior to Metamizole dosing. Performed By: #### 2 524-7 #### MARIELLE BRUNNER ([id number]) [facility] ([facility]) [address] [place] [address] Troponin, High Sensitivity, 1 Houron 01-21-2025 Tropinin I.cardiac panel High sensitivity method 4 ng/L 0 - 20 ng/L [facility] XR Chest Single viewon 01-21 No acute cardiopulmo nary process. MACRO: None Signed by: Laci Moe 01/21/2025 12:55 AM Dictation workstation: [id number] MMODAL Interpreted By: Laci Tee ala, STUDY: XR CHEST 1 VIEW; 01/21/2025 12:39 am INDICATION: Signs/Symptoms:Trauma. COMPARISON: None. ACCESSION NUMBER(S): [id number] ORDERING CLINICIAN: HARMAN PAYAN FINDINGS: Cardiomediastinal silhouette and pulmonary vasculature are within normal limits. No consolidation, effusion or pneumothorax. MMODAL Laci Moe MD - 01/21/2025 Interpreted By: Laci Moe, STUDY: XR CHEST 1 VIEW; 01/21/2025 12:39 am INDICATION: Signs/Symptoms:Trauma. COMPARISON: None. ACCESSION NUMBER(S): [id number] ORDERING CLINICIAN: HARMAN PAYAN FINDINGS: Cardiomediastinal silhouette and pulmonary vasculature are within normal limits. No consolidation, effusion or pneumothorax. IMPRESSION: No acute cardiopulmonary process. MACRO: None Signed by: Laci Moe 01/21/2025 12:55 AM Dictation workstation: [id number] [facility] Work Phone: [facility] Work Phone: Radiology Study observation (narrative) [facility] Work Phone: Alcoholon 01-20-2025 Ethanol [Mass/Vol] 267 mg/dL High NINF - 10 mg/dL [facility] Comment on above: For medical use only . Blood type and Indirect anti body screen panel (Bld)on 01-20-2025 ABO group Nom (Bld) A Normal [facility] Comment on above: Performed By: #### 2 524-7 #### MARIELLE BRUNNER ([id number]) [facility] ([facility]) [address] [place] [address] Blood group antibody screen Ql Negative Normal [facility] Comment on above: Performed By: #### 2 524-7 #### MARIELLE BRUNNER ([id number]) [facility] ([facility]) [address] [place] [address] D Ag Ql (Bld) Positive Normal [facility] Comment on above: Performed By: #### 2 524-7 #### MARIELLE BRUNNER ([id number]) [facility] ([facility]) [address] [place] [address] CBC W Auto Differential pane l (Bld)on 01-20-2025 Basophils (Bld) [#/Vol] 0.08 x10*3/uL Normal 0.00-0.10 [facility] Comment on above: Performed By: #### 2 524-7 #### MARIELLE BRUNNER ([id number]) [facility] ([facility]) [address] [place] [address] Basophils/100 WBC (Bld) 1.0 % Normal 0.0-2.0 [facility] Comment on above: Performed By: #### 2 524-7 #### MARIELLE BRUNNER ([id number]) [facility] ([facility]) [address] [place] [address] 34358 Eosinophils (Bld) [#/Vol] 0.21 x10*3/uL Normal 0.00-0.70 [facility] Comment on above: Performed By: #### 2 524-7 #### MARIELLE BRUNNER ([id number]) [facility] ([facility]) [address] [place] [address] 68794 Eosinophils/100 WBC (Bld) 2.6 % Normal 0.0-6.0 [facility] Comment on above: Performed By: #### 2 524-7 #### MARIELLE BRUNNER ([id number]) [facility] ([facility]) [address] [place] [address] 63139 Erythrocyte distribution width (RBC) [Ratio] 14.0 % Normal 11.5-14.5 [facility] Comment on above: Performed By: #### 2 524-7 #### MARIELLE BRUNNER ([id number]) [facility] ([facility]) [address] [place] [address] 13537 Hematocrit (Bld) [Volume fraction] 44.4 % Normal 41.0-52.0 [facility] Comment on above: Performed By: #### 2 524-7 #### MARIELLE BRUNNER ([id number]) [facility] ([facility]) [address] [place] [address] 18196 Hemoglobin (Bld) [Mass/Vol] 16.7 g/dL Normal 13.5-17.5 [facility] Comment on above: Performed By: #### 2 524-7 #### MARIELLE BRUNNER ([id number]) [facility] ([facility]) [address] [place] [address] 06801 Immature granulocytes (Bld) [#/Vol] 0.02 x10*3/uL Normal 0.00-0.70 [facility] Comment on above: Performed By: #### 2 524-7 #### MARIELLE BRUNNER ([id number]) [facility] ([facility]) [address] [place] [address] 71541 Immature granulocytes/100 WBC (Bld) 0.2 % Normal 0.0-0.9 [facility] Comment on above: Result Comment: Opal ture Granulocyte Count (IG) includes promyelocytes, myelocytes and metamyelocytes but does not include bands. Percent differential counts (%) should be interpreted in the context of the absolute cell counts (cells/UL). Performed By: #### 2 524-7 #### MARIELLE BRUNNER ([id number]) [facility] ([facility]) [address] [place] [address] 28058 Lymphocytes (Bld) [#/Vol] 3.35 x10*3/uL Normal 1.20-4.80 [facility] Comment on above: Performed By: #### 2 524-7 #### MARIELLE BRUNNER ([id number]) [facility] ([facility]) [address] [place] [address] 35177 Lymphocytes/100 WBC (Bld) 41.3 % Normal 13.0-44.0 [facility] Comment on above: Performed By: #### 2 524-7 #### MRAIELLE BRUNNER ([id number]) [facility] ([facility]) [address] [place] [address] 60457 MCH (RBC) [Entitic mass] 36.7 pg High 26.0-34.0 [facility] Comment on above: Performed By: #### 2 524-7 #### MARIELLE BRUNNER ([id number]) [facility] ([facility]) [address] [place] [address] 90894 MCHC (RBC) [Mass/Vol] 37.6 g/dL High 32.0-36.0 [facility] Comment on above: Performed By: #### 2 524-7 #### MARIELLE BRUNNER ([id number]) [facility] ([facility]) [address] [place] [address] 25507 MCV (RBC) [Entitic vol] 98 fL Normal 80-100 [facility] Comment on above: Performed By: #### 2 524-7 #### MARIELLE BRUNNER ([id number]) [facility] ([facility]) [address] [place] [address] 89008 Monocytes (Bld) [#/Vol] 0.60 x10*3/uL Normal 0.10-1.00 [facility] Comment on above: Performed By: #### 2 524-7 #### MARIELLE BRUNNER ([id number]) [facility] ([facility]) [address] [place] [address] 17053 Monocytes/100 WBC (Bld) 7.4 % Normal 2.0-10.0 [facility] Comment on above: Performed By: #### 2 524-7 #### MARIELLE BRUNNER ([id number]) [facility] ([facility]) [address] [place] [address] 74429 Neutrophils (Bld) [#/Vol] 3.85 x10*3/uL Normal 1.20-7.70 [facility] Comment on above: Result Comment: Perc ent differential counts (%) should be interpreted in the context of the absolute cell counts (cells/uL). Performed By: #### 2 524-7 #### MARIELLE BRUNNER ([id number]) [facility] ([facility]) [address] [place] [address] 00836 Neutrophils/100 WBC (Bld) 47.5 % Normal 40.0-80.0 [facility] Comment on above: Performed By: #### 2 524-7 #### MARIELLE BRUNNER ([id number]) [facility] ([facility]) [address] [place] [address] 54178 Nucleated RBC/100 WBC (Bld) [Ratio] 0.0 /100 WBCs Normal 0.0-0.0 [facility] Comment on above: Performed By: #### 2 524-7 #### MARIELLE COLLINS RIO SAMIR ([id number]) [facility] ([facility]) [address] [place] [address] Platelets (Bld) [#/Vol] 201 x10*3/uL Normal 150-450 [facility] Comment on above: Performed By: #### 2 524-7 #### BREONNAIBQUENTIN BRUNNER ([id number]) [facility] ([facility]) [address] [place] [address] 99898 RBC (Bld) [#/Vol] 4.55 x10*6/uL Normal 4.50-5.90 [facility] Comment on above: Performed By: #### 2 524-7 #### BREONNAIBELIWILL COLLINSJOSE G SAMIR ([id number]) [facility] (EM) [address] [place] [address] 10442 WBC (Bld) [#/Vol] 8.1 x10*3/uL Normal 4.4-11.3 [facility] Comment on above: Performed By: #### 2 524-7 #### MARIELLE COLLINS ALCON DAWSON ([id number]) [facility] (EM) [address] [place] [address] 3D RECONSTRUCTIONon 01-20 CT 3D RECONSTRUCTION Interpreted By: Laci Giles, STUDY: CT HEAD W/O CONTRAST TRAUMA PROTOCOL; CT FACIAL BONES WO IV CONTRAST; CT CERVICAL SPINE WO IV CONTRAST; CT 3D RECONSTRUCTION; 01/20/2025 11:46 pm INDICATION: Signs/Symptoms:trauma; Signs/Symptoms:fall. COMPARISON: 04/04/2023 ACCESSION NUMBER(S): [id number]; [id number]; [id number]; [id number] ORDERING CLINICIAN: HARMAN PAYAN TECHNIQUE: Axial noncontrast images of the head with coronal and sagittal reformatted images. Axial noncontrast images of the facial bones with coronal and sagittal reformatted images. 3D facial reconstructions were created on an independent workstation and reviewed. Axial noncontrast images of the cervical spine with coronal and sagittal reformatted images. FINDINGS: CT HEAD: BRAIN PARENCHYMA: No acute intraparenchymal hemorrhage or parenchymal evidence of acute large territory ischemic infarct. No mass-effect. Liriano-white matter distinction is preserved. VENTRICLES and EXTRA-AXIAL SPACES: No acute extra-axial or intraventricular hemorrhage. No effacement of cerebral sulci. Ventricles and sulci are age-concordant. MASTOIDS: Well-aerated. CALVARIUM: No skull fracture. CT MAXILLOFACIAL SKELETON: FACIAL BONES: No acute facial bone fracture. The bony orbits are intact. ORBITS: The globes, extraocular muscles, and optic nerve sheath complexes are intact. No retrobulbar or subperiosteal hematoma. SOFT TISSUES: No discernible acute abnormality. PARANASAL SINUSES: No hemorrhage or air-fluid levels within the paranasal sinuses. OTHER FINDINGS: None. CT CERVICAL SPINE: PREVERTEBRAL SOFT TISSUES: Within normal limits. CRANIOCERVICAL JUNCTION: Intact. ALIGNMENT: No traumatic malalignment or traumatic facet widening. VERTEBRAE: No acute fracture. Vertebral body heights are maintained. SPINAL CANAL/INTERVERTEBRAL DISCS: No high-grade spinal canal stenosis. Multilevel mild degenerative disc disease. NEURAL FORAMINA: No significant neural foraminal stenosis. Multilevel mild facet arthropathy. OTHER: None. IMPRESSION: CT HEAD: 1. No acute intracranial abnormality or calvarial fracture. CT MAXILLOFACIAL SKELETON: 1. No acute facial bone fracture. CT CERVICAL SPINE: 1. No acute fracture or traumatic malalignment of the cervical spine. MACRO: None. Signed by: Laci Moe 01/21/2025 12:04 AM Dictation workstation: [id number] [facility] CT CERVICAL SPINE WO IV CONT [facility] 01-20-2025 CT CERVICAL SPINE WO IV CONTRAST Interpreted By: Laci Moe, STUDY: CT HEAD W/O CONTRAST TRAUMA PROTOCOL; CT FACIAL BONES WO IV CONTRAST; CT CERVICAL SPINE WO IV CONTRAST; CT 3D RECONSTRUCTION; 01/20/2025 11:46 pm INDICATION: Signs/Symptoms:trauma; Signs/Symptoms:fall. COMPARISON: 04/04/2023 ACCESSION NUMBER(S): [id number]; [id number]; [id number]; [id number] ORDERING CLINICIAN: HARMAN PAYAN TECHNIQUE: Axial noncontrast images of the head with coronal and sagittal reformatted images. Axial noncontrast images of the facial bones with coronal and sagittal reformatted images. 3D facial reconstructions were created on an independent workstation and reviewed. Axial noncontrast images of the cervical spine with coronal and sagittal reformatted images. FINDINGS: CT HEAD: BRAIN PARENCHYMA: No acute intraparenchymal hemorrhage or parenchymal evidence of acute large territory ischemic infarct. No mass-effect. Liriano-white matter distinction is preserved. VENTRICLES and EXTRA-AXIAL SPACES: No acute extra-axial or intraventricular hemorrhage. No effacement of cerebral sulci. Ventricles and sulci are age-concordant. MASTOIDS: Well-aerated. CALVARIUM: No skull fracture. CT MAXILLOFACIAL SKELETON: FACIAL BONES: No acute facial bone fracture. The bony orbits are intact. ORBITS: The globes, extraocular muscles, and optic nerve sheath complexes are intact. No retrobulbar or subperiosteal hematoma. SOFT TISSUES: No discernible acute abnormality. PARANASAL SINUSES: No hemorrhage or air-fluid levels within the paranasal sinuses. OTHER FINDINGS: None. CT CERVICAL SPINE: PREVERTEBRAL SOFT TISSUES: Within normal limits. CRANIOCERVICAL JUNCTION: Intact. ALIGNMENT: No traumatic malalignment or traumatic facet widening. VERTEBRAE: No acute fracture. Vertebral body heights are maintained. SPINAL CANAL/INTERVERTEBRAL DISCS: No high-grade spinal canal stenosis. Multilevel mild degenerative disc disease. NEURAL FORAMINA: No significant neural foraminal stenosis. Multilevel mild facet arthropathy. OTHER: None. IMPRESSION: CT HEAD: 1. No acute intracranial abnormality or calvarial fracture. CT MAXILLOFACIAL SKELETON: 1. No acute facial bone fracture. CT CERVICAL SPINE: 1. No acute fracture or traumatic malalignment of the cervical spine. MACRO: None. Signed by: Laci Moe 01/21/2025 12:04 AM Dictation workstation: [id number] [facility] CT CHEST ABDOMEN PELVIS W IV CONTRASTon 01-20-2025 CT CHEST ABDOMEN PELVIS W IV CONTRAST Interpreted By: Laci Moe, STUDY: CT CHEST ABDOMEN PELVIS W IV CONTRAST; CT LUMBAR SPINE RETROSPECTIVE RECONSTRUCTION PROTOCOL; CT THORACIC SPINE RETROSPECTIVE RECONSTRUCTION PROTOCOL; 01/20/2025 11:54 pm INDICATION: Signs/Symptoms:Trauma; Signs/Symptoms:trauma. COMPARISON: None. ACCESSION NUMBER(S): [id number]; [id number]; [id number] ORDERING CLINICIAN: HARMAN PAYAN TECHNIQUE: Contiguous axial images of the chest, abdomen, and pelvis were obtained after the intravenous administration of iodinated contrast. Coronal and sagittal reformatted images were reconstructed from the axial data. Additional CT imaging of the thoracic and lumbar spine was performed with coronal and sagittal reformatted images that were created and reviewed. FINDINGS: CT CHEST: Heart size normal. Thoracic aorta intact. No effusion. There is atelectasis dependent portion of the lungs. No pneumothorax. Prior internal fixation of left posterior ribs. CT ABDOMEN/PELVIS: There is steatosis of the liver. The gallbladder, adrenals pancreas spleen and kidneys are unremarkable. No hydronephrosis. Bladder within normal limits. No bowel obstruction. No appendicitis or colitis. No free fluid or adenopathy. Normal caliber aorta. THORACIC SPINE: Thoracic spine normally aligned. Vertebral body heights and disc spaces are maintained. No acute fracture or dislocation. LUMBAR SPINE: Lumbar spine alignment normal. Moderate to advanced degenerative disc disease L5-S1. No acute fracture or dislocation. IMPRESSION: No acute process identified in the chest, abdomen or pelvis. Thoracic and lumbar spine intact. MACRO: None. Signed by: Laci Moe 01/21/2025 12:21 AM Dictation workstation: [id number] [facility] CT FACIAL BONES WO IV CONTRA STon 01-20-2025 CT FACIAL BONES WO IV CONTRAST Interpreted By: Laci Moe, STUDY: CT HEAD W/O CONTRAST TRAUMA PROTOCOL; CT FACIAL BONES WO IV CONTRAST; CT CERVICAL SPINE WO IV CONTRAST; CT 3D RECONSTRUCTION; 01/20/2025 11:46 pm INDICATION: Signs/Symptoms:trauma; Signs/Symptoms:fall. COMPARISON: 04/04/2023 ACCESSION NUMBER(S): [id number]; [id number]; [id number]; [id number] ORDERING CLINICIAN: HARMAN PAYAN TECHNIQUE: Axial noncontrast images of the head with coronal and sagittal reformatted images. Axial noncontrast images of the facial bones with coronal and sagittal reformatted images. 3D facial reconstructions were created on an independent workstation and reviewed. Axial noncontrast images of the cervical spine with coronal and sagittal reformatted images. FINDINGS: CT HEAD: BRAIN PARENCHYMA: No acute intraparenchymal hemorrhage or parenchymal evidence of acute large territory ischemic infarct. No mass-effect. Liriano-white matter distinction is preserved. VENTRICLES and EXTRA-AXIAL SPACES: No acute extra-axial or intraventricular hemorrhage. No effacement of cerebral sulci. Ventricles and sulci are age-concordant. MASTOIDS: Well-aerated. CALVARIUM: No skull fracture. CT MAXILLOFACIAL SKELETON: FACIAL BONES: No acute facial bone fracture. The bony orbits are intact. ORBITS: The globes, extraocular muscles, and optic nerve sheath complexes are intact. No retrobulbar or subperiosteal hematoma. SOFT TISSUES: No discernible acute abnormality. PARANASAL SINUSES: No hemorrhage or air-fluid levels within the paranasal sinuses. OTHER FINDINGS: None. CT CERVICAL SPINE: PREVERTEBRAL SOFT TISSUES: Within normal limits. CRANIOCERVICAL JUNCTION: Intact. ALIGNMENT: No traumatic malalignment or traumatic facet widening. VERTEBRAE: No acute fracture. Vertebral body heights are maintained. SPINAL CANAL/INTERVERTEBRAL DISCS: No high-grade spinal canal stenosis. Multilevel mild degenerative disc disease. NEURAL FORAMINA: No significant neural foraminal stenosis. Multilevel mild facet arthropathy. OTHER: None. IMPRESSION: CT HEAD: 1. No acute intracranial abnormality or calvarial fracture. CT MAXILLOFACIAL SKELETON: 1. No acute facial bone fracture. CT CERVICAL SPINE: 1. No acute fracture or traumatic malalignment of the cervical spine. MACRO: None. Signed by: Laci Moe 01/21/2025 12:04 AM Dictation workstation: [id number] [facility] CT HEAD W/O CONTRAST TRAUMA PROTOCOLon 01-20-2025 CT HEAD W/O CONTRAST TRAUMA PROTOCOL Interpreted By: Laci Moe, STUDY: CT HEAD W/O CONTRAST TRAUMA PROTOCOL; CT FACIAL BONES WO IV CONTRAST; CT CERVICAL SPINE WO IV CONTRAST; CT 3D RECONSTRUCTION; 01/20/2025 11:46 pm INDICATION: Signs/Symptoms:trauma; Signs/Symptoms:fall. COMPARISON: 04/04/2023 ACCESSION NUMBER(S): [id number]; [id number]; [id number]; [id number] ORDERING CLINICIAN: HARMAN PAYAN TECHNIQUE: Axial noncontrast images of the head with coronal and sagittal reformatted images. Axial noncontrast images of the facial bones with coronal and sagittal reformatted images. 3D facial reconstructions were created on an independent workstation and reviewed. Axial noncontrast images of the cervical spine with coronal and sagittal reformatted images. FINDINGS: CT HEAD: BRAIN PARENCHYMA: No acute intraparenchymal hemorrhage or parenchymal evidence of acute large territory ischemic infarct. No mass-effect. Liriano-white matter distinction is preserved. VENTRICLES and EXTRA-AXIAL SPACES: No acute extra-axial or intraventricular hemorrhage. No effacement of cerebral sulci. Ventricles and sulci are age-concordant. MASTOIDS: Well-aerated. CALVARIUM: No skull fracture. CT MAXILLOFACIAL SKELETON: FACIAL BONES: No acute facial bone fracture. The bony orbits are intact. ORBITS: The globes, extraocular muscles, and optic nerve sheath complexes are intact. No retrobulbar or subperiosteal hematoma. SOFT TISSUES: No discernible acute abnormality. PARANASAL SINUSES: No hemorrhage or air-fluid levels within the paranasal sinuses. OTHER FINDINGS: None. CT CERVICAL SPINE: PREVERTEBRAL SOFT TISSUES: Within normal limits. CRANIOCERVICAL JUNCTION: Intact. ALIGNMENT: No traumatic malalignment or traumatic facet widening. VERTEBRAE: No acute fracture. Vertebral body heights are maintained. SPINAL CANAL/INTERVERTEBRAL DISCS: No high-grade spinal canal stenosis. Multilevel mild degenerative disc disease. NEURAL FORAMINA: No significant neural foraminal stenosis. Multilevel mild facet arthropathy. OTHER: None. IMPRESSION: CT HEAD: 1. No acute intracranial abnormality or calvarial fracture. CT MAXILLOFACIAL SKELETON: 1. No acute facial bone fracture. CT CERVICAL SPINE: 1. No acute fracture or traumatic malalignment of the cervical spine. MACRO: None. Signed by: Laci Moe 01/21/2025 12:04 AM Dictation workstation: [id number] [facility] CT LUMBAR SPINE RETROSPECTIV E RECONSTRUCTION PROTOCOLon 01-20-2025 CT LUMBAR SPINE RETROSPECTIVE RECONSTRUCTION PROTOCOL Interpreted By: Laci Moe, STUDY: CT CHEST ABDOMEN PELVIS W IV CONTRAST; CT LUMBAR SPINE RETROSPECTIVE RECONSTRUCTION PROTOCOL; CT THORACIC SPINE RETROSPECTIVE RECONSTRUCTION PROTOCOL; 01/20/2025 11:54 pm INDICATION: Signs/Symptoms:Trauma; Signs/Symptoms:trauma. COMPARISON: None. ACCESSION NUMBER(S): [id number]; [id number]; [id number] ORDERING CLINICIAN: HARMAN PAYAN TECHNIQUE: Contiguous axial images of the chest, abdomen, and pelvis were obtained after the intravenous administration of iodinated contrast. Coronal and sagittal reformatted images were reconstructed from the axial data. Additional CT imaging of the thoracic and lumbar spine was performed with coronal and sagittal reformatted images that were created and reviewed. FINDINGS: CT CHEST: Heart size normal. Thoracic aorta intact. No effusion. There is atelectasis dependent portion of the lungs. No pneumothorax. Prior internal fixation of left posterior ribs. CT ABDOMEN/PELVIS: There is steatosis of the liver. The gallbladder, adrenals pancreas spleen and kidneys are unremarkable. No hydronephrosis. Bladder within normal limits. No bowel obstruction. No appendicitis or colitis. No free fluid or adenopathy. Normal caliber aorta. THORACIC SPINE: Thoracic spine normally aligned. Vertebral body heights and disc spaces are maintained. No acute fracture or dislocation. LUMBAR SPINE: Lumbar spine alignment normal. Moderate to advanced degenerative disc disease L5-S1. No acute fracture or dislocation. IMPRESSION: No acute process identified in the chest, abdomen or pelvis. Thoracic and lumbar spine intact. MACRO: None. Signed by: Laci Moe 01/21/2025 12:21 AM Dictation workstation: [id number] [facility] CT THORACIC SPINE RETROSPECT BARTOLOME RECONSTRUCTION PROTOCOLon 01-20-2025 CT THORACIC SPINE RETROSPECTIVE RECONSTRUCTION PROTOCOL Interpreted By: Laci Moe, STUDY: CT CHEST ABDOMEN PELVIS W IV CONTRAST; CT LUMBAR SPINE RETROSPECTIVE RECONSTRUCTION PROTOCOL; CT THORACIC SPINE RETROSPECTIVE RECONSTRUCTION PROTOCOL; 01/20/2025 11:54 pm INDICATION: Signs/Symptoms:Trauma; Signs/Symptoms:trauma. COMPARISON: None. ACCESSION NUMBER(S): [id number]; [id number]; [id number] ORDERING CLINICIAN: HARMAN PAYAN TECHNIQUE: Contiguous axial images of the chest, abdomen, and pelvis were obtained after the intravenous administration of iodinated contrast. Coronal and sagittal reformatted images were reconstructed from the axial data. Additional CT imaging of the thoracic and lumbar spine was performed with coronal and sagittal reformatted images that were created and reviewed. FINDINGS: CT CHEST: Heart size normal. Thoracic aorta intact. No effusion. There is atelectasis dependent portion of the lungs. No pneumothorax. Prior internal fixation of left posterior ribs. CT ABDOMEN/PELVIS: There is steatosis of the liver. The gallbladder, adrenals pancreas spleen and kidneys are unremarkable. No hydronephrosis. Bladder within normal limits. No bowel obstruction. No appendicitis or colitis. No free fluid or adenopathy. Normal caliber aorta. THORACIC SPINE: Thoracic spine normally aligned. Vertebral body heights and disc spaces are maintained. No acute fracture or dislocation. LUMBAR SPINE: Lumbar spine alignment normal. Moderate to advanced degenerative disc disease L5-S1. No acute fracture or dislocation. IMPRESSION: No acute process identified in the chest, abdomen or pelvis. Thoracic and lumbar spine intact. MACRO: None. Signed by: Laci Moe 01/21/2025 12:21 AM Dictation workstation: [id number] Normal [facility] Coagulation tissue factor in ducedon 01-20-2025 PT Coag (PPP) [Time] 11.2 s Normal 9.8-12.4 [facility] Comment on above: Performed By: #### 5 902-2 #### MARIELLE BRUNNER ([id number]) [facility] ([facility]) [address] [place] [address] Comprehensive metabolic 2000 panelon 01-20-2025 Albumin BCP dye [Mass/Vol] 4.0 g/dL 3.4 - 5.0 g/dL [facility] ALP [Catalytic activity/Vol] 141 U/L High 33 - 120 U/L [facility] ALT With P-5'-P [Catalytic activity/Vol] 59 U/L High 10 - 52 U/L [facility] Comment on above: Patients treated wit h Sulfasalazine may generate falsely decreased results for ALT. Anion gap [Moles/Vol] 15 mmol/L 10 - 20 mmol/L [facility] AST With P-5'-P [Catalytic activity/Vol] 114 U/L High 9 - 39 U/L [facility] Bilirubin [Mass/Vol] 0.8 mg/dL 0.0 - 1 .2 mg/dL [facility] Calcium [Mass/Vol] 8.3 mg/dL Low 8.6 - 10. 3 mg/dL [facility] Chloride [Moles/Vol] 97 mmol/L Low 98 - 10 7 mmol/L [facility] CO2 [Moles/Vol] 27 mmol/L 21 - 32 mmol/L [facility] Creatinine [Mass/Vol] 0.65 mg/dL 0.50 - 1.30 mg/dL [facility] eGFR - PINF [facility] Comment on above: Calculations of lilia mated GFR are performed using the 2020 CKD-EPI Study Refit equation without the race variable for the IDMS-Traceable creatinine methods. https://jasn.asnjournals.org/content//ASN.1291631 988 Glucose [Mass/Vol] 113 mg/dL High 74 - 99 mg/dL [facility] Potassium [Moles/Vol] 3.0 mmol/L Low 3.5 - 5.3 mmol/L [facility] Protein [Mass/Vol] 6.5 g/dL 6.4 - 8.2 g/dL [facility] Sodium [Moles/Vol] 136 mmol/L 136 - 145 mmol/L [facility] Urea nitrogen [Mass/Vol] 4 mg/dL Low 6 - 23 mg/dL [facility] Albumin BCP dye [Mass/Vol] 4.0 g/dL Normal 3.4-5.0 [facility] Comment on above: Performed By: #### 2 4323-8 #### MARIELLE BRUNNER ([id number]) [facility] (C) [address] [place] [address] 58156 ALP [Catalytic activity/Vol] 141 U/L High 33-120 [facility] Comment on above: Performed By: #### 2 4323-8 #### MARIELLE BRUNNER ([id number]) [facility] ([facility]) [address] [place] [address] ALT With P-5'-P [Catalytic activity/Vol] 59 U/L High 10-52 [facility] [place] Comment on above: Result Comment: Denisse ents treated with Sulfasalazine may generate falsely decreased results for ALT. Performed By: #### 2 4323-8 #### MARIELLE BRUNNER ([id number]) [facility] ([facility]) [address] [place] [address]33 Anion gap [Moles/Vol] 15 mmol/L Normal 10-20 [facility] [place] Comment on above: Performed By: #### 2 4323-8 #### MARIELLE BRUNNER ([id number]) [facility] ([facility]) [address] [place] [address] AST With P-5'-P [Catalytic activity/Vol] 114 U/L High 9-39 [facility] [place] Comment on above: Performed By: #### 2 4323-8 #### MARIELLE BRUNNER ([id number]) [facility] ([facility]) [address] [place] [address] 84976 Bilirubin [Mass/Vol] 0.8 mg/dL Normal 0.0-1.2 [facility] Comment on above: Performed By: #### 2 4323-8 #### MARIELLE BRUNNER ([id number]) [facility] ([facility]) [address] [place] [address] 91307 Calcium [Mass/Vol] 8.3 mg/dL Low 8.6-10.3 [facility] Comment on above: Performed By: #### 2 4323-8 #### MARIELLE BRUNNER ([id number]) [facility] ([facility]) [address] [place] [address] 59624 Chloride [Moles/Vol] 97 mmol/L Low 98-107 [facility] Comment on above: Performed By: #### 2 4323-8 #### MARIELLE BRUNNER ([id number]) [facility] ([facility]) [address] [place] [address] 42663 CO2 [Moles/Vol] 27 mmol/L Normal 21-32 [facility] Comment on above: Performed By: #### 2 4323-8 #### MARIELLE BRUNNER ([id number]) [facility] ([facility]) [address] [place] [address] 91214 Creatinine [Mass/Vol] 0.65 mg/dL Normal 0.50-1.30 [facility] [place] Comment on above: Performed By: #### 2 4323-8 #### MARIELLE BRUNNER ([id number]) [facility] ([facility]) [address] [place] [address] 68492 Glomerular filtration rate >90 Normal >60 [facility] [place] Comment on above: Result Comment: Calc ulations of estimated GFR are performed using the 2020 CKD-EPI Study Refit equation without the race variable for the IDMS-Traceable creatinine methods. https://jasn.asnjournals.org/content//ASN.3140844 988 Performed By: #### 2 4323-8 #### MARIELLE BRUNNER ([id number]) [facility] ([facility]) [address] [place] [address] 93979 Glucose [Mass/Vol] 113 mg/dL High 74-99 [facility] Comment on above: Performed By: #### 2 4323-8 #### MARIELLE BRUNNER ([id number]) [facility] ([facility]) [address] [place] [address] 57132 Potassium [Moles/Vol] 3.0 mmol/L Low 3.5-5.3 [facility] [place] Comment on above: Performed By: #### 2 4323-8 #### MARIELLE BRUNNER ([id number]) [facility] ([facility]) [address] [place] [address] 82818 Protein [Mass/Vol] 6.5 g/dL Normal 6.4-8.2 [facility] Comment on above: Performed By: #### 2 4323-8 #### MARIELLE BRUNNER ([id number]) [facility] ([facility]) [address] [place] [address] 52675 Sodium [Moles/Vol] 136 mmol/L Normal 136-145 [facility] Comment on above: Performed By: #### 2 4323-8 #### MARIELLE BRNUNER ([id number]) [facility] ([facility]) [address] [place] [address] 92373 Urea nitrogen [Mass/Vol] 4 mg/dL Low 6-23 [facility] [place] Comment on above: Performed By: #### 2 4323-8 #### MARIELLE BRUNNER ([id number]) [facility] ([facility]) [address] [place] [address] Ethanolon 01-20-2025 Ethanol [Mass/Vol] 267 mg/dL High <=10 [facility] Comment on above: Result Comment: For medical use only. Performed By: #### 5 643-2 #### MARIELLE BRUNNER ([id number]) [facility] ([facility]) [address] [place] [address] Lactateon 01-20-2025 Lactate [Moles/Vol] 2.7 mmol/L High 0.4 - 2. 0 mmol/L [facility] Lactate [Moles/Vol] 2.7 mmol/L High 0.4-2.0 [facility] Comment on above: Order Comment: Venip uncture immediately after or during the administration of Metamizole may lead to falsely low results. Testing should be performed immediately prior to Metamizole dosing. Performed By: #### 2 524-7 #### MARIELLE BRUNNER ([id number]) [facility] ([facility]) [address] [place] [address] Lactate [Moles/Vol]on 2024 Interpretation and review of laboratory results Abnormal [facility] Venipuncture immedia tely after or during the administration of Metamizole may lead to falsely low results. Testing should be performed immediately prior to Metamizole dosing. [facility] Magnesiumon 01-20-2025 Magnesium [Mass/Vol] 1.78 mg/dL Normal 1.60-2.40 [facility] Comment on above: Performed By: #### 2 524-7 #### MARIELLE BRUNNER ([id number]) [facility] ([facility]) [address] [place] [address] No Panel Informationon 01-20 Interpretation and review of laboratory results Abnormal [facility] Radiology Study observation (narrative) [facility] Work Phone: Radiology Study observation (narrative) [facility] Work Phone: PT Coag (PPP) [Time]on 01-20 INR Coag (PPP) [Relative time] 1.0 {INR} 0.9 - 1.1 [facility] Interpretation and review of laboratory results Normal [facility] INR Coag (PPP) [Relative time] 1.0 Normal 0.9-1.1 [facility] [place] Comment on above: Performed By: #### 5 902-2 #### MARIELLE BRUNNER ([id number]) [facility] ([facility]) [address] [place] [address] 14356 Phosphateon 01-20-2025 Phosphate [Mass/Vol] 2.2 mg/dL Low 2.5-4.9 [facility] Comment on above: Performed By: #### 2 524-7 #### MARIELLE BRUNNER ([id number]) [facility] ([facility]) [address] [place] [address] 32747 Protime-INRon 01-20-2025 PT Coag (PPP) [Time] 11.2 s [facility] Tropinin I.cardiac panel Hig h sensitivity methodon 01-20-2025 Interpretation and review of laboratory results Normal [facility] Less than 99th perce ntile of normal range cutoff- Female and children under 18 years old <14 ng/L; Male <21 ng/L: Negative Repeat testing should be performed if clinically indicated. Female and children under 18 years old 14-50 ng/L; Male 21-50 ng/L: Consistent with possible cardiac damage and possible increased clinical risk. Serial measurements may help to assess extent of myocardial damage. >50 ng/L: Consistent with cardiac damage, increased clinical risk and myocardial infarction. Serial measurements may help assess extent of myocardial damage. NOTE: Children less than 1 year old may have higher baseline troponin levels and results should be interpreted in conjunction with the overall clinical context. NOTE: Troponin I testing is performed using a different testing methodology at [facility] than at other [facility]. Direct result comparisons should only be made within the same method. [facility] Troponin I, High Sensitivity , Initialon 01-20-2025 Tropinin I.cardiac panel High sensitivity method 6 ng/L 0 - 20 ng/L [facility] Troponin I.cardiac panelon 0 01-20-2025 Tropinin I.cardiac panel High sensitivity method 6 ng/L Normal 0-20 [facility] [place] Comment on above: Order Comment: Less than 99th percentile of normal range cutoff- Female and children under 18 years old <14 ng/L; Male <21 ng/L: Negative Repeat testing should be performed if clinically indicated. Female and children under 18 years old 14-50 ng/L; Male 21-50 ng/L: Consistent with possible cardiac damage and possible increased clinical risk. Serial measurements may help to assess extent of myocardial damage. >50 ng/L: Consistent with cardiac damage, increased clinical risk and myocardial infarction. Serial measurements may help assess extent of myocardial damage. NOTE: Children less than 1 year old may have higher baseline troponin levels and results should be interpreted in conjunction with the overall clinical context. NOTE: Troponin I testing is performed using a different testing methodology at [facility] than at [facility]. Direct result comparisons should only be made within the same method. Performed By: #### 8 9577-1 #### MARIELLE BRUNNER ([id number]) [facility] (C) [address] [place] [address] XR CHEST 1 VIEWon 01-20-2025 XR CHEST 1 VIEW Interpreted By: Laci Tee ala, STUDY: XR CHEST 1 VIEW; 01/21/2025 12:39 am INDICATION: Signs/Symptoms:Trauma. COMPARISON: None. ACCESSION NUMBER(S): [id number] ORDERING CLINICIAN: HARMAN PAYAN FINDINGS: Cardiomediastinal silhouette and pulmonary vasculature are within normal limits. No consolidation, effusion or pneumothorax. IMPRESSION: No acute cardiopulmonary process. MACRO: None Signed by: Laci Moe 01/21/2025 12:55 AM Dictation workstation: [id number] Normal [facility] [place] Basic metabolic 2000 panelon 01-29-2024 Anion gap [Moles/Vol] 12 mmol/L Normal 8-15 [facility] Comment on above: Order Comment: Speci men Type: BLOOD SPECIMEN Ordering Facility: [facility] Address: [address] [place] [address] Performed By: #### 5 7021-8 #### [facility] CLIA [id number] [address] [place] [address] [place] Calcium [Mass/Vol] 8.5 mg/dL Normal 8.5-10.2 [facility] Comment on above: Order Comment: Speci men Type: BLOOD SPECIMEN Ordering Facility: [facility] Address: [address] [place] [address] Performed By: #### 5 7021-8 #### [facility] CLIA [id number] [address] [place] [address] [place] Chloride [Moles/Vol] 102 mmol/L Normal 98-107 [facility] Comment on above: Order Comment: Speci men Type: BLOOD SPECIMEN Ordering Facility: [facility] Address: [address] [place] [address] Performed By: #### 5 7021-8 #### [facility] CLIA [id number] [address] [place] [address] [place] CO2 [Moles/Vol] 23 mmol/L Normal 22-30 [facility] Comment on above: Order Comment: Speci men Type: BLOOD SPECIMEN Ordering Facility: [facility] Address: [address] [place] [address] Performed By: #### 5 7021-8 #### [facility] CLIA [id number] [address] [place] [address] [place] Creatinine [Mass/Vol] 0.64 mg/dL Low 0.73-1.22 [facility] Comment on above: Order Comment: Speci men Type: BLOOD SPECIMEN Ordering Facility: [facility] Address: [address] [place] [address] Performed By: #### 5 7021-8 #### [facility] CLIA [id number] [address] [place] [address] [place] Creatinine and Glomerular filtration rate.predicted panel (S/P/Bld) 118 mL/min/1.73m??? Normal >=60 [facility] Comment on above: Order Comment: Kenneth strong Type: BLOOD SPECIMEN Ordering Facility: [facility] Address: [address] [place] [address] Result Comment: Lilia mated Glomerular Filtration Rate (eGFR) is calculated using the 2020 CKD-EPI creatinine equation. This equation utilizes serum creatinine, sex, and age as parameters. The creatinine assay has traceable calibration to isotope dilution-mass spectrometry. Refer to KDIGO guidelines for clinical interpretation. In patients with unstable renal function, e.g. those with acute kidney injury, the eGFR may not accurately reflect actual GFR. Performed By: #### 5 7021-8 #### [facility] CLIA [id number] [address] [place] [address] [place] Glucose [Mass/Vol] 102 mg/dL High 74-99 [facility] Comment on above: Order Comment: Kenneth strong Type: BLOOD SPECIMEN Ordering Facility: [facility] Address: [address] [place] [address] Result Comment: The [place] Diabetes Association (ADA) provides guidance for cutoff values for fasting glucose and random glucose. The ADA defines fasting as no caloric intake for at least 8 hours. Fasting plasma glucose results between 100 to 125 mg/dL indicate increased risk for diabetes (prediabetes). Fasting plasma glucose results greater than or equal to 126 mg/dL meet the criteria for diagnosis of diabetes. In the absence of unequivocal hyperglycemia, results should be confirmed by repeat testing. In a patient with classic symptoms of hyperglycemia or hyperglycemic crisis, random plasma glucose results greater than or equal to 200 mg/dL meet the criteria for diagnosis of diabetes. Reference: Standards of Medical Care in Diabetes 2016, [place] [employer]. Diabetes Care. 2016.39(Suppl 1). Performed By: #### 5 7021-8 #### [facility] CLIA [id number] [address] [place] [address] [place] Potassium [Moles/Vol] 4.2 mmol/L Normal 3.7-5.1 [facility] Comment on above: Order Comment: Kenneth strong Type: BLOOD SPECIMEN Ordering Facility: [facility] Address: [address] [place] [id number] Performed By: #### 5 7021-8 #### [facility] CLIA [id number] [address] [place] [address] [place] [facility] Sodium [Moles/Vol] 137 mmol/L Normal 136-144 [facility] Comment on above: Order Comment: Speci men Type: BLOOD SPECIMEN Ordering Facility: [facility] Address: [address] [place] [address] Performed By: #### 5 7021-8 #### [facility] CLIA [id number] [address] [place] [address] [place] [facility] Urea nitrogen [Mass/Vol] 7 mg/dL Low 9-24 [facility] Comment on above: Order Comment: Speci men Type: BLOOD SPECIMEN Ordering Facility: [facility] Address: [address] [place] [address] Performed By: #### 5 7021-8 #### [facility] CLIA [id number] [address] [place] [address] [facility] CNDSon 01-29-2024 CNDS HNO ID: [id number] Author: ANIVAL GARZA MD Service: Hospital Medicine Author Type: Physician Type: Discharge Summary Filed: 01/29/2024 13:18 Note Text: DISCHARGE SUMMARY PATIENT NAME: Ford Phelan ADMISSION DATE: 01/26/2024 DISCHARGE DATE: 01/29/2024 Attending Physician: Anival Garza MD Code Status: Full Code Highest Readmission Risk Score: 10 The 30 day readmissions risk score is derived from an internally validated risk model which evaluates patient level characteristics, utilization history, medication orders and lab results up until the day of discharge. Patients with a score of 40 or above are considered highest risk for readmission. Specific patient level drivers will be listed at the bottom of the summary. Reason for Hospitalization: Abdominal pain Diagnosis: Primary Diagnosis: Acute pancreatitis Secondary Diagnoses: liver lesions Hospital Course as Described to the Patient: You were admitted for . Ford Phelan is a 48 year old male presented with past medical history of pancreatitis, depression/anxiety, nicotine and alcohol use who presents with abdominal pain and nausea/vomiting. States symptoms started on Friday. States last drink was ; had beers.Has not been able to keep anything down, ED workup significant for lipase of [address] imaging showing pancreatitis. Treatment started with IV fluids and pain control. Pain improved with supportive measures, diet advanced and was well tolerated, counseled regarding stopping alcohol, labs showed hyponatremia resolved with IVF, CT on admission showed 1 cm right hepatic lesion for which multiphasic liver MRI is recommended for further characterization. Order placed for outpatient MRI. Transitions of Care Critical Issues: IMAGING FOLLOW-UP: follow on liver MRI to be done outpatient LABS AND PROCEDURES PENDING AT DISCHARGE: Test Results Not Yet Available from This Hospitalization: Please Review at Your Follow Up Appointment Order Current Status SEPSIS LACTATE W/ REFLEX (INITIAL) Collected (01/26/241823) INCIDENTAL OR ACTIONABLE FINDING (Last Refresh: 01/29/2024 1:16 PM) Test(s): CT ABD/PEL W IVCON Additional Provider to Provider Information: Operations During Hospitalization: None Procedures During Hospitalization: CT Scan Consulting Teams During Hospitalization: Treatment Team: Attending Provider: Anival Garza MD Patient Condition @ Discharge: Good Discharge Disposition: Home/Self Care Physical Exam Performed GENERAL: Alert, well-developed, no acute distress, cooperative. HEAD: Normocephalic, atraumatic EYES: PERRLA, EOMI NECK: No jugulovenous distention, supple LUNGS: Lung sounds clear, no spontaneous cough present. CARDIAC: Normal S1 and S2; no rubs, murmurs, or gallops ABDOMEN: Abdomen soft,, no distention. BS normal x4; minimal LUQ tenderness EXTREMITIES: Extremities normal, no edema NEURO: Alert and oriented x3. Normal cognition and motor function. Sensation intact. PULSES: 2+ radial Information Provided to Patient: Substance Abuse Information Given Diet: Low fat Activity: Resume pre-hospital activity Wound/Surgical Site Care: ALLERGIES Allergen Reactions Fentanyl Rash Discharge Medications: Medication List CONTINUE taking these medications clonazePAM 0.5 mg tablet Commonly known as: KlonoPIN fluvoxaMINE 50 mg tablet Commonly known as: LUVOX hydrOXYzine HCl 25 mg tablet Commonly known as: ATARAX lisinopril 20 mg tablet Commonly known as: ZESTRIL Plan of Care: Plan of care discussed with Provider, RN, Patient Future Appointments: Follow Up with PCP: No primary care provider on file. Appointments for Next 45 Days None The patient's risk for 30-day readmission is determined using the following contributing factors: Pt variables contributing to increased readmission risk: 11 Active Medication Orders 8.4 First Resulted Calcium During Admission 7 Most Recent BUN Result 2 Number of Previous ED Visits (6 mos.) 1 Previous ED Visit (6 mos.)? 1 Insurance - Private Coverage 1 Discharge Disposition - Home I have performed the kvny-ro-phsu and relevant services for a total of >30 minutes. SIGNATURE: Eulalia Garza MD PATIENT NAME: Ford Phelan DATE: January 29, 2024 TIME: 1:16 PM Normal [facility] Basic metabolic 2000 panelon 01-28-2024 Anion gap [Moles/Vol] Normal [facility] Comment on above: Order Comment: Speci men Type: BLOOD SPECIMEN Ordering Facility: [facility] Address: [address] [place] [address] Result Comment: Unab le to calculate due to hemolysis. Performed By: #### 2 2, #### [facility] CLIA [id number] [address] [place] [address] [place] Calcium [Mass/Vol] 8.2 mg/dL Low 8.5-10.2 [facility] Comment on above: Order Comment: Speci men Type: BLOOD SPECIMEN Ordering Facility: [facility] Address: [address] [place] [address] Performed By: #### 2 2, #### [facility] CLIA [id number] [address] [place] [address] [place] Chloride [Moles/Vol] 99 mmol/L Normal 98-107 [facility] Comment on above: Order Comment: Speci men Type: BLOOD SPECIMEN Ordering Facility: [facility] Address: [address] [place], [place] [id number] Performed By: #### 2 2, #### [facility] CLIA [id number] [address] [place] [address] [place] CO2 [Moles/Vol] Normal [facility] Comment on above: Order Comment: Speci men Type: BLOOD SPECIMEN Ordering Facility: [facility] Address: [address], [place] [address] Result Comment: Unab le to assay due to interference from hemolysis. Suggest reorder as clinically indicated. Performed By: #### 2 432-2, #### [facility] CLIA [id number] [address] [place] [address] [place] Creatinine [Mass/Vol] 0.59 mg/dL Low 0.73-1.22 [facility] Comment on above: Order Comment: Kenneth strong Type: BLOOD SPECIMEN Ordering Facility: [facility] Address: [address] [place] [address] Performed By: #### 2 432-2, #### [facility] CLIA [id number] [address] [place] [address] [place] Creatinine and Glomerular filtration rate.predicted panel (S/P/Bld) 120 mL/min/1.73m??? Normal >=60 [facility] Comment on above: Order Comment: Kenneth strong Type: BLOOD SPECIMEN Ordering Facility: [facility] Address: [address] [place] [address] Result Comment: Lilia mated Glomerular Filtration Rate (eGFR) is calculated using the 2020 CKD-EPI creatinine equation. This equation utilizes serum creatinine, sex, and age as parameters. The creatinine assay has traceable calibration to isotope dilution-mass spectrometry. Refer to KDIGO guidelines for clinical interpretation. In patients with unstable renal function, e.g. those with acute kidney injury, the eGFR may not accurately reflect actual GFR. Performed By: #### 2 4320-, #### [facility] CLIA [id number] [address] [place] [address] [place] Glucose [Mass/Vol] 96 mg/dL Normal 74-99 [facility] Comment on above: Order Comment: Kenneth strong Type: BLOOD SPECIMEN Ordering Facility: [facility] Address: [address] [place] [address] Result Comment: The [place] Diabetes Association (ADA) provides guidance for cutoff values for fasting glucose and random glucose. The ADA defines fasting as no caloric intake for at least 8 hours. Fasting plasma glucose results between 100 to 125 mg/dL indicate increased risk for diabetes (prediabetes). Fasting plasma glucose results greater than or equal to 126 mg/dL meet the criteria for diagnosis of diabetes. In the absence of unequivocal hyperglycemia, results should be confirmed by repeat testing. In a patient with classic symptoms of hyperglycemia or hyperglycemic crisis, random plasma glucose results greater than or equal to 200 mg/dL meet the criteria for diagnosis of diabetes. Reference: Standards of Medical Care in Diabetes 2016, [place] [employer]. Diabetes Care. 2016.39(Suppl 1). Performed By: #### 2 4320-07, #### [facility] CLIA [id number] [address] [place] [address] [place] Potassium [Moles/Vol] Normal [facility] Comment on above: Order Comment: Kenneth strong Type: BLOOD SPECIMEN Ordering Facility: [facility] Address: [address] [place] [address] Result Comment: Unab le to assay due to interference from hemolysis. Suggest reorder as clinically indicated. Performed By: #### 2 4320-07, #### [facility] CLIA [id number] [address] [place] [address] [place] Sodium [Moles/Vol] 128 mmol/L Low 136-144 [facility] Comment on above: Order Comment: Kenneth strong Type: BLOOD SPECIMEN Ordering Facility: [facility] Address: [address] [place], [place] [address] Performed By: #### 2 4320-07, #### [facility] CLIA [id number] [address] [place] [address] [place] Urea nitrogen [Mass/Vol] 9 mg/dL Normal 9-24 [facility] Comment on above: Order Comment: Kenneth strong Type: BLOOD SPECIMEN Ordering Facility: [facility] Address: [address] [place] [address] Performed By: #### 2 4320-07, #### [facility] CLIA [id number] [address] [place] [address] [place] Anion gap [Moles/Vol] 10 mmol/L Normal 8-15 [facility] Comment on above: Order Comment: Speci men Type: BLOOD SPECIMEN Ordering Facility: [facility] Address: [address] [place] [address] Performed By: #### 2 4323-8, 3039-3, #### [facility] CLIA [id number] [address] [place] [address] [place] Calcium [Mass/Vol] 8.3 mg/dL Low 8.5-10.2 [facility] Comment on above: Order Comment: Speci men Type: BLOOD SPECIMEN Ordering Facility: [facility] Address: [address] [place] [id number] Performed By: #### 2 4323-8, 3, #### [facility] CLIA [id number] [address] [place] [address] [place] Chloride [Moles/Vol] 98 mmol/L Normal 98-107 [facility] Comment on above: Order Comment: Speci men Type: BLOOD SPECIMEN Ordering Facility: [facility] Address: [address] [place] [address] Performed By: #### 2 4323-8, 3, #### [facility] CLIA [id number] [address] [place] [address] [place] CO2 [Moles/Vol] 22 mmol/L Normal 22-30 [facility] Comment on above: Order Comment: Speci men Type: BLOOD SPECIMEN Ordering Facility: [facility] Address: [address] [place] [address] Performed By: #### 2 4323-8, 0-3, #### [facility] CLIA [id number] [address] [place] [address] [place] Creatinine [Mass/Vol] 0.56 mg/dL Low 0.73-1.22 [facility] Comment on above: Order Comment: Speci men Type: BLOOD SPECIMEN Ordering Facility: [facility] Address: [address] [place] [address] Performed By: #### 2 4323-8, 3, #### [facility] CLIA [id number] [place] [address] [place] Creatinine and Glomerular filtration rate.predicted panel (S/P/Bld) 122 mL/min/1.73m??? Normal >=60 [facility] Comment on above: Order Comment: Kenneth strong Type: BLOOD SPECIMEN Ordering Facility: [facility] Address: [address] [place] [address] Result Comment: Lilia mated Glomerular Filtration Rate (eGFR) is calculated using the 2020 CKD-EPI creatinine equation. This equation utilizes serum creatinine, sex, and age as parameters. The creatinine assay has traceable calibration to isotope dilution-mass spectrometry. Refer to KDIGO guidelines for clinical interpretation. In patients with unstable renal function, e.g. those with acute kidney injury, the eGFR may not accurately reflect actual GFR. Performed By: #### 2 4323-8, 0-3, #### [facility] CLIA [id number] [place] [address] [place] Glucose [Mass/Vol] 90 mg/dL Normal 74-99 [facility] Comment on above: Order Comment: Kenneth strong Type: BLOOD SPECIMEN Ordering Facility: [facility] Address: [address] [place] [address] Result Comment: The [place] Diabetes [employer] (ADA) provides guidance for cutoff values for fasting glucose and random glucose. The ADA defines fasting as no caloric intake for at least 8 hours. Fasting plasma glucose results between 100 to 125 mg/dL indicate increased risk for diabetes (prediabetes). Fasting plasma glucose results greater than or equal to 126 mg/dL meet the criteria for diagnosis of diabetes. In the absence of unequivocal hyperglycemia, results should be confirmed by repeat testing. In a patient with classic symptoms of hyperglycemia or hyperglycemic crisis, random plasma glucose results greater than or equal to 200 mg/dL meet the criteria for diagnosis of diabetes. Reference: Standards of Medical Care in Diabetes 2016, [place] [employer]. Diabetes Care. 2016.39(Suppl 1). Performed By: #### 2 4323-8, 3040-3, #### [facility] CLIA [id number] [address] [place] [address] [place] Potassium [Moles/Vol] Normal [facility] Comment on above: Order Comment: Speci men Type: BLOOD SPECIMEN Ordering Facility: [facility] Address: [address] [place] [address] Result Comment: Unab le to assay due to interference from hemolysis. Suggest reorder as clinically indicated. Performed By: #### 2 4323-8, 3040-3, #### [facility] CLIA [id number] [address] [place] [address] [place] Sodium [Moles/Vol] 130 mmol/L Low 136-144 [facility] Comment on above: Order Comment: Speci men Type: BLOOD SPECIMEN Ordering Facility: [facility] Address: [address] [place] [address] Performed By: #### 2 4323-8, 0-3, #### [facility] CLIA [id number] [address] [place] [address] [place] Urea nitrogen [Mass/Vol] 11 mg/dL Normal 9-24 [facility] Comment on above: Order Comment: Speci men Type: BLOOD SPECIMEN Ordering Facility: [facility] Address: [address] [place] [address] Performed By: #### 2 4323-8, 3040-3, #### [facility] CLIA [id number] [address] [place] [address] [place] Magnesium SerPl-mCncon 01-27 Magnesium [Mass/Vol] 2.0 mg/dL Normal 1.7-2.3 [facility] Comment on above: Order Comment: Speci men Type: BLOOD SPECIMEN Ordering Facility: [facility] Address: [address] [place] [address] Performed By: #### 2 4321-2, #### [facility] CLIA [id number] [address] [place] [address] [place] Magnesium [Mass/Vol] 1.9 mg/dL Normal 1.7-2.3 [facility] Comment on above: Order Comment: Speci men Type: BLOOD SPECIMEN Ordering Facility: [facility] Address: [address] [place] [address] Performed By: #### 2 4323-8, 3040-3, 97030-2 #### [facility] [place] [id number] [address] [place] [address] [place] Urinalysis complete panel (U )on 01-28-2024 Bilirubin Ql (U) Negative Normal Negative [facility] Comment on above: Order Comment: Speci men Type: URINE SPECIMEN Ordering Facility: [facility] Address: [address] [place] [address] Performed By: #### 2 4356-8 #### [facility] IA [id number] [address] [place] [address] [place] Clarity (Unsp spec) Clear Normal Clear [facility] Comment on above: Order Comment: Speci men Type: URINE SPECIMEN Ordering Facility: [facility] Address: [address] [place] [address] Performed By: #### 2 4356-8 #### [facility] IA [id number] [address] [place] [address] [place] Color (U) Yellow Normal yellow [facility] Comment on above: Order Comment: Speci men Type: URINE SPECIMEN Ordering Facility: [facility] Address: [address] [place] [address] Performed By: #### 2 4356-8 #### [facility] IA [id number] [address] [place] [address] [place] Glucose Test strip (U) [Mass/Vol] Negative Normal Trace, Negative [facility] Comment on above: Order Comment: Speci men Type: URINE SPECIMEN Ordering Facility: [facility] Address: [address] [place] [address] Performed By: #### 2 4356-8 #### [facility] IA [id number] [address] [place] [address] [place] Hemoglobin Ql (U) Negative Normal Negative, Trace [facility] Comment on above: Order Comment: Speci men Type: URINE SPECIMEN Ordering Facility: [facility] Address: [address] [place] [address] Performed By: #### 2 4356-8 #### [facility] CLIA [id number] [address] [place] [address] [place] Ketones Ql (U) 1+ Abnormal Negative, Trace [facility] Comment on above: Order Comment: Speci men Type: URINE SPECIMEN Ordering Facility: [facility] Address: [address] [place] [address] Performed By: #### 2 4356-8 #### [facility] CLIA [id number] [address] [place] [address] [place] Leukocyte esterase Test strip Ql (U) Negative Normal Negative, 25 Cheng/uL [facility] Comment on above: Order Comment: Speci men Type: URINE SPECIMEN Ordering Facility: [facility] Address: [address] [place] [address] Performed By: #### 2 4356-8 #### [facility] IA [id number] [address] [place] [address] [place] Nitrite Ql (U) Negative Normal Negative [facility] Comment on above: Order Comment: Speci men Type: URINE SPECIMEN Ordering Facility: [facility] Address: [address] [place] [address] Performed By: #### 2 4356-8 #### [facility] CLIA [id number] [address] [place] [address] [place] pH (U) 6.5 [pH] Normal 5.0-8.0 [facility] Comment on above: Order Comment: Speci men Type: URINE SPECIMEN Ordering Facility: [facility] Address: [address] [place] [address] Performed By: #### 2 4356-8 #### [facility] CLIA [id number] [address] [place] [address] [place] Protein (U) [Mass/Vol] Negative Normal Trace, Negative [facility] Comment on above: Order Comment: Speci men Type: URINE SPECIMEN Ordering Facility: [facility] Address: [address] [place] [address] Performed By: #### 2 4356-8 #### [facility] IA [id number] [address] [place] [address] [place] RBC LM.HPF (Urine sed) [#/Area] 0-3 /HPF Normal 0-3 /HPF [facility] Comment on above: Order Comment: Speci men Type: URINE SPECIMEN Ordering Facility: [facility] Address: [address] [place] [address] Performed By: #### 2 4356-8 #### [facility] IA [id number] [address] [place] [address] [place] Specific gravity (U) [Rel density] 1.024 Normal 1.005-1.030 [facility] Comment on above: Order Comment: Speci men Type: URINE SPECIMEN Ordering Facility: [facility] Address: [address] [place] [address] Performed By: #### 2 4356-8 #### [facility] IA [id number] [address] [place] [address] [place] [facility] [place] Urobilinogen Ql (U) 3+ Abnormal Normal [facility] Comment on above: Order Comment: Speci men Type: URINE SPECIMEN Ordering Facility: [facility] Address: [address] [place] [address] Performed By: #### 2 4356-8 #### [facility] IA [id number] [address] [place] [address] [place] WBC LM.HPF (Urine sed) [#/Area] 0-5 /HPF Normal 0-5 /HPF [facility] Comment on above: Order Comment: Speci men Type: URINE SPECIMEN Ordering Facility: [facility] Address: [address] [place] [address] Performed By: #### 2 4356-8 #### [facility] IA [id number] [address] [place] [address] [place] Basic metabolic 2000 panelon 01-27-2024 Anion gap [Moles/Vol] 13 mmol/L Normal 8-15 [facility] Comment on above: Order Comment: Speci men Type: BLOOD SPECIMEN Ordering Facility: [facility] Address: [address] [place] [address] Performed By: #### 2 4321-2, #### [facility] CLIA [id number] [address] [place] [address] [place] Calcium [Mass/Vol] 8.4 mg/dL Low 8.5-10.2 [facility] Comment on above: Order Comment: Speci men Type: BLOOD SPECIMEN Ordering Facility: [facility] Address: [address] [place] [address] Performed By: #### 2 4321-2, #### [facility] CLIA [id number] [address] [place] [address] [place] Chloride [Moles/Vol] 101 mmol/L Normal 98-107 [facility] Comment on above: Order Comment: Speci men Type: BLOOD SPECIMEN Ordering Facility: [facility] Address: [address] [place] [address] Performed By: #### 2 4321-2, #### [facility] CLIA [id number] [address] [place] [address] [place] CO2 [Moles/Vol] 26 mmol/L Normal 22-30 [facility] Comment on above: Order Comment: Speci men Type: BLOOD SPECIMEN Ordering Facility: [facility] Address: [address] [place] [address] Performed By: #### 2 4321-2, #### [facility] CLIA [id number] [address] [place] [address] [place] Creatinine [Mass/Vol] 0.70 mg/dL Low 0.73-1.22 [facility] Comment on above: Order Comment: Speci men Type: BLOOD SPECIMEN Ordering Facility: [facility] Address: [address] [place] [address] Performed By: #### 2 432-2, #### [facility] CLIA [id number] [address] [place] [address] [place] Creatinine and Glomerular filtration rate.predicted panel (S/P/Bld) 114 mL/min/1.73m??? Normal >=60 [facility] Comment on above: Order Comment: Kenneth strong Type: BLOOD SPECIMEN Ordering Facility: [facility] Address: [address] [place] [address] Result Comment: Lilia mated Glomerular Filtration Rate (eGFR) is calculated using the 2020 CKD-EPI creatinine equation. This equation utilizes serum creatinine, sex, and age as parameters. The creatinine assay has traceable calibration to isotope dilution-mass spectrometry. Refer to KDIGO guidelines for clinical interpretation. In patients with unstable renal function, e.g. those with acute kidney injury, the eGFR may not accurately reflect actual GFR. Performed By: #### 2 4321-, #### [facility] CLIA [id number] [address] [place] [address] [place] Glucose [Mass/Vol] 73 mg/dL Low 74-99 [facility] Comment on above: Order Comment: Kenneth strong Type: BLOOD SPECIMEN Ordering Facility: [facility] Address: [address] [place] [address] Result Comment: The [place] Diabetes [employer] (ADA) provides guidance for cutoff values for fasting glucose and random glucose. The ADA defines fasting as no caloric intake for at least 8 hours. Fasting plasma glucose results between 100 to 125 mg/dL indicate increased risk for diabetes (prediabetes). Fasting plasma glucose results greater than or equal to 126 mg/dL meet the criteria for diagnosis of diabetes. In the absence of unequivocal hyperglycemia, results should be confirmed by repeat testing. In a patient with classic symptoms of hyperglycemia or hyperglycemic crisis, random plasma glucose results greater than or equal to 200 mg/dL meet the criteria for diagnosis of diabetes. Reference: Standards of Medical Care in Diabetes 2016, [place] [employer]. Diabetes Care. 2016.39(Suppl 1). Performed By: #### 2 4321-2, #### [facility] CLIA [id number] [address] [place] [address] [place] Potassium [Moles/Vol] 4.1 mmol/L Normal 3.7-5.1 [facility] Comment on above: Order Comment: Speci men Type: BLOOD SPECIMEN Ordering Facility: [facility] Address: [address] [place] [address] Performed By: #### 2 4321-2, #### [facility] CLIA [id number] [address] [place] [address] [place] Sodium [Moles/Vol] 140 mmol/L Normal 136-144 [facility] Comment on above: Order Comment: Speci men Type: BLOOD SPECIMEN Ordering Facility: [facility] Address: [address] [place] [address] Performed By: #### 2 4321-2, #### [facility] CLIA [id number] [address] [place] [address] [place] Urea nitrogen [Mass/Vol] 13 mg/dL Normal 9-24 [facility] Comment on above: Order Comment: Speci men Type: BLOOD SPECIMEN Ordering Facility: [facility] Address: [address] [place] [address] Performed By: #### 2 4321-2, #### [facility] CLIA [id number] [address] [place] [address] [place] CBC panel Auto (Bld)on 01-26 Erythrocyte distribution width (RBC) [Ratio] 12.7 % Normal 11.5-15.0 [facility] Comment on above: Order Comment: Speci men Type: BLOOD SPECIMEN Ordering Facility: [facility] Address: [address] [place] [address] Performed By: #### 5 7021-8 #### [facility] CLIA [id number] [address] [place] [address] [place] Hematocrit (Bld) [Volume fraction] 43.9 % Normal 39.0-51.0 [facility] Comment on above: Order Comment: Speci men Type: BLOOD SPECIMEN Ordering Facility: [facility] Address: [address] [place] [address] Performed By: #### 5 7021-8 #### [facility] IA [id number] [address] [place] [address] [place] Hemoglobin (Bld) [Mass/Vol] 15.7 g/dL Normal 13.0-17.0 [facility] Comment on above: Order Comment: Speci men Type: BLOOD SPECIMEN Ordering Facility: [facility] Address: [address] [place] [address] Performed By: #### 5 7021-8 #### [facility] IA [id number] [place] [address] [place] MCH (RBC) [Entitic mass] 36.9 pg High 26.0-34.0 [facility] Comment on above: Order Comment: Speci men Type: BLOOD SPECIMEN Ordering Facility: [facility] Address: [address] [place] [address] Performed By: #### 5 7021-8 #### [facility] [place] [id number] [place] [address] [place] MCHC (RBC) [Mass/Vol] 35.8 g/dL Normal 30.5-36.0 [facility] Comment on above: Order Comment: Speci men Type: BLOOD SPECIMEN Ordering Facility: [facility] Address: [address] [place] [address] Performed By: #### 5 7021-8 #### [facility] IA [id number] [address] [place] MCV (RBC) [Entitic vol] 103.3 fL High 80.0-100.0 [facility] Comment on above: Order Comment: Speci men Type: BLOOD SPECIMEN Ordering Facility: [facility] Address: [address] [place] [address] Performed By: #### 5 7021-8 #### [facility] IA [id number] [place] [address] [place] Nucleated RBC (Bld) [#/Vol] 10*3/uL Normal <0.01 [facility] Comment on above: Order Comment: Speci men Type: BLOOD SPECIMEN Ordering Facility: [facility] Address: [address] [place] [address] Performed By: #### 5 7021-8 #### [facility] CLIA [id number] [address] [place] [address] [place] Platelet mean volume (Bld) [Entitic vol] 10.2 fL Normal 9.0-12.7 [facility] Comment on above: Order Comment: Speci men Type: BLOOD SPECIMEN Ordering Facility: [facility] Address: [address] [place] [address] Performed By: #### 5 7021-8 #### [facility] CLIA [id number] [address] [place] [address] [place] Platelets (Bld) [#/Vol] 189 10*3/uL Normal 150-400 [facility] Comment on above: Order Comment: Speci men Type: BLOOD SPECIMEN Ordering Facility: [facility] Address: [address] [place] [address] Performed By: #### 5 7021-8 #### [facility] CLIA [id number] [address] [place] [address] [place] RBC (Bld) [#/Vol] 4.25 10*6/uL Normal 4.20-6.00 [facility] Comment on above: Order Comment: Speci men Type: BLOOD SPECIMEN Ordering Facility: [facility] Address: [address] [place] [address] Performed By: #### 5 7021-8 #### [facility] CLIA [id number] [address] [place] [address] [place] WBC (Bld) [#/Vol] 8.80 10*3/uL Normal 3.70-11.00 [facility] Comment on above: Order Comment: Speci men Type: BLOOD SPECIMEN Ordering Facility: [facility] Address: [address] [place] [address] Performed By: #### 5 7021-8 #### [facility] CLIA [id number] [address] [place] [address] [place] Magnesium SerPl-mCncon 01-26 Magnesium [Mass/Vol] 1.6 mg/dL Low 1.7-2.3 [facility] Comment on above: Order Comment: Speci men Type: BLOOD SPECIMEN Ordering Facility: [facility] Address: [address] [place] [address] Performed By: #### 2 4321-2, 68254-4 #### [facility] CLIA [id number] [address] [place] [address] [place] CBC W Auto Differential pane l (Bld)on 01-26-2024 Basophils (Bld) [#/Vol] 0.03 10*3/uL Normal <0.11 [facility] Comment on above: Order Comment: Speci men Type: BLOOD SPECIMEN Ordering Facility: [facility] Address: [address] [place] [address] Performed By: #### 5 7021-8 #### [facility] CLIA [id number] [address] [place] [address] [place] Basophils/100 WBC (Bld) 0.3 % Normal [facility] Comment on above: Order Comment: Speci men Type: BLOOD SPECIMEN Ordering Facility: [facility] Address: [address] [place] [address] Performed By: #### 5 7021-8 #### [facility] CLIA [id number] [address] [place] [address] [place] Differential cell count method Nom (Bld) Auto Normal [facility] Comment on above: Order Comment: Speci men Type: BLOOD SPECIMEN Ordering Facility: [facility] Address: [address] [place] [address] Performed By: #### 5 7021-8 #### [facility] CLIA [id number] [address] [place] [address] [place] Eosinophils (Bld) [#/Vol] 0.11 10*3/uL Normal <0.46 [facility] Comment on above: Order Comment: Speci men Type: BLOOD SPECIMEN Ordering Facility: [facility] Address: [address] [place] [address] Performed By: #### 5 7021-8 #### [facility] CLIA [id number] [address] [place] [address] [place] Eosinophils/100 WBC (Bld) 0.9 % Normal [facility] Comment on above: Order Comment: Speci men Type: BLOOD SPECIMEN Ordering Facility: [facility] Address: [address] [place] [address] Performed By: #### 5 7021-8 #### [facility] CLIA [id number] [address] [place] [address] [place] Erythrocyte distribution width (RBC) [Ratio] 12.8 % Normal 11.5-15.0 [facility] Comment on above: Order Comment: Speci men Type: BLOOD SPECIMEN Ordering Facility: [facility] Address: [address] [place] [address] Performed By: #### 5 7021-8 #### [facility] IA [id number] [address] [place] [address] [place] [place] Hematocrit (Bld) [Volume fraction] 45.8 % Normal 39.0-51.0 [facility] Comment on above: Order Comment: Speci men Type: BLOOD SPECIMEN Ordering Facility: [facility] Address: [address] [place] [address] Performed By: #### 5 7021-8 #### [facility] [place] [id number] [address] [place] [address] [place] Hemoglobin (Bld) [Mass/Vol] 17.0 g/dL Normal 13.0-17.0 [facility] Comment on above: Order Comment: Speci men Type: BLOOD SPECIMEN Ordering Facility: [facility] Address: [address] [place] [address] Performed By: #### 5 7021-8 #### [facility] CLIA [id number] [address] [place] [address] [place] Immature granulocytes (Bld) [#/Vol] 0.06 10*3/uL Normal <0.10 [facility] Comment on above: Order Comment: Speci men Type: BLOOD SPECIMEN Ordering Facility: [facility] Address: [address] [place] [address] Performed By: #### 5 7021-8 #### [facility] CLIA [id number] [address] [place] [address] [place] Immature granulocytes/100 WBC (Bld) 0.5 % Normal [facility] Comment on above: Order Comment: Speci men Type: BLOOD SPECIMEN Ordering Facility: [facility] Address: [address] [place] [address] Performed By: #### 5 7021-8 #### [facility] IA [id number] [address] [place] [address] [place] Lymphocytes (Bld) [#/Vol] 1.66 10*3/uL Normal 1.00-4.00 [facility] Comment on above: Order Comment: Speci men Type: BLOOD SPECIMEN Ordering Facility: [facility] Address: [address] [place] [address] Performed By: #### 5 7021-8 #### [facility] IA [id number] [address] [place] Lymphocytes/100 WBC (Bld) 13.8 % Normal [facility] Comment on above: Order Comment: Speci men Type: BLOOD SPECIMEN Ordering Facility: [facility] Address: [address] [place] [address] Performed By: #### 5 7021-8 #### [facility] IA [id number] [address] [place] [address] [place] MCH (RBC) [Entitic mass] 37.2 pg High 26.0-34.0 [facility] Comment on above: Order Comment: Speci men Type: BLOOD SPECIMEN Ordering Facility: [facility] Address: [address] [place] [address] Performed By: #### 5 7021-8 #### [facility] CLIA [id number] [address] [place] [address] [place] MCHC (RBC) [Mass/Vol] 37.1 g/dL High 30.5-36.0 [facility] Comment on above: Order Comment: Speci men Type: BLOOD SPECIMEN Ordering Facility: [facility] Address: [address] [place] [address] Performed By: #### 5 7021-8 #### [facility] CLIA [id number] [address] [place] [address] [place] MCV (RBC) [Entitic vol] 100.2 fL High 80.0-100.0 [facility] Comment on above: Order Comment: Speci men Type: BLOOD SPECIMEN Ordering Facility: [facility] Address: [address] [place] [address] Performed By: #### 5 7021-8 #### [facility] IA [id number] [address] [place] [address] [place] Monocytes (Bld) [#/Vol] 0.88 10*3/uL High <0.87 [facility] Comment on above: Order Comment: Speci men Type: BLOOD SPECIMEN Ordering Facility: [facility] Address: [address] [place] [address] Performed By: #### 5 7021-8 #### [facility] IA [id number] [address] [place] [address] [place] Monocytes/100 WBC (Bld) 7.3 % Normal [facility] Comment on above: Order Comment: Speci men Type: BLOOD SPECIMEN Ordering Facility: [facility] Address: [address] [place] [address] Performed By: #### 5 7021-8 #### [facility] IA [id number] [address] [place] [address] [place] Neutrophils (Bld) [#/Vol] 9.25 10*3/uL High 1.45-7.50 [facility] Comment on above: Order Comment: Speci men Type: BLOOD SPECIMEN Ordering Facility: [facility] Address: [address] [place] [address] Performed By: #### 5 7021-8 #### [facility] CLIA [id number] [address] [place] [address] [place] Neutrophils/100 WBC (Bld) 77.2 % Normal [facility] Comment on above: Order Comment: Speci men Type: BLOOD SPECIMEN Ordering Facility: [facility] Address: [address] [place] [address] Performed By: #### 5 7021-8 #### [facility] CLIA [id number] [address] [place] [address] [place] Nucleated RBC (Bld) [#/Vol] 10*3/uL Normal <0.01 [facility] Comment on above: Order Comment: Speci men Type: BLOOD SPECIMEN Ordering Facility: [facility] Address: [address] [place] [address] Performed By: #### 5 7021-8 #### [facility] IA [id number] [address] [place] [address] [place] Nucleated RBC/100 WBC (Bld) [Ratio] 0.0 /100 WBC Normal [facility] Comment on above: Order Comment: Speci men Type: BLOOD SPECIMEN Ordering Facility: [facility] Address: [address] [place] [address] Performed By: #### 5 7021-8 #### [facility] IA [id number] [address] [place] [address] [place] Platelet mean volume (Bld) [Entitic vol] 10.1 fL Normal 9.0-12.7 [facility] Comment on above: Order Comment: Speci men Type: BLOOD SPECIMEN Ordering Facility: [facility] Address: [address] [place] [address] Performed By: #### 5 7021-8 #### [facility] CLIA [id number] [address] [place] [address] [place] Platelets (Bld) [#/Vol] 230 10*3/uL Normal 150-400 [facility] Comment on above: Order Comment: Speci men Type: BLOOD SPECIMEN Ordering Facility: [facility] Address: [address] [place] [address] Performed By: #### 5 7021-8 #### [facility] CLIA [id number] [address] [place] [address] [place] RBC (Bld) [#/Vol] 4.57 10*6/uL Normal 4.20-6.00 [facility] Comment on above: Order Comment: Speci men Type: BLOOD SPECIMEN Ordering Facility: [facility] Address: [address] [place] [address] Performed By: #### 5 7021-8 #### [facility] CLIA [id number] [address] [place] [address] [place] WBC (Bld) [#/Vol] 11.99 10*3/uL High 3.70-11.00 [facility] Comment on above: Order Comment: Speci men Type: BLOOD SPECIMEN Ordering Facility: [facility] Address: [address] [place], [place] [address] Performed By: #### 5 7021-8 #### [facility] CLIA [id number] [address] [place] [address] [place] [address] ABD/PEL W IVCONon 024 CT ABD/PEL W IVCON * * *Final Report* * * DATE OF EXAM: Jan 26 2024 7:18PM [facility] 0530 - CT ABD/PEL W IVCON / PROCEDURE REASON: Abdominal pain, acute, nonlocalized * * * * Physician Interpretation * * * * EXAMINATION: CT ABDOMEN AND PELVIS WITH IV CONTRAST CLINICAL HISTORY: Epigastric pain and right upper quadrant pain. TECHNIQUE: CT of the abdomen and pelvis was performed using standard technique, scanning from just above the dome of the diaphragm to the symphysis pubis. MQ: CTAP_3 Contrast: IV: 100 ml of Omnipaque 350 CT Radiation dose: Integrated Dose-length product (DLP) for this visit = 558 mGy*cm. CT Dose Reduction Employed: Automated exposure control(AEC) and iterative recon COMPARISON: November 17, 2023. RESULT: Liver: There is a vague hypoattenuating right liver lesion which measures up to 1 cm. Hepatic steatosis. Biliary: No bile duct dilation. Gallbladder is unremarkable. Spleen: No mass. No splenomegaly. Pancreas: Peripancreatic edema is present. Adrenals: No mass. Kidneys: No mass, calculus or hydronephrosis. GI tract: No dilation or wall thickening. Normal appendix. Lymph nodes: No abdominal or pelvic lymphadenopathy. Mesentery/Peritoneum: No ascites or mass. Retroperitoneum: No mass. Vasculature: - Abdominal aorta and iliac arteries: No aneurysm. - Celiac and SMA: Patent without stenosis. - Portal venous system (SMV, splenic vein, portal vein and branches): Patent. - Hepatic veins: Patent. Pelvis: No mass, ascites or fluid collection. Bones/Soft Tissues: Old fixated right rib fractures. Degenerative changes are present in the spine. Lower thorax: Mild bibasilar atelectasis. Localizer images: No additional findings. IMPRESSION: Interstitial edematous pancreatitis. 1 cm right hepatic lesion for which multiphasic liver MRI is recommended for further characterization. ACTIONABLE RESULT: FOLLOW-UP Acuity: Actionable Findings: Liver Routing Code: LV_1 Recommendation: MRI LIVER WO/W IVCON (add Dotarem in comments) Time Frame: 4-6 weeks COMMUNICATION: Results will be communicated with the ordering provider via [employer] staff message or phone message by [facility] within 2 business days of report finalization. --END OF FINDING-- Marketing Automation Specialist: ELISABETH Transcribe Date/Time: Jan 26 2024 7:58P Dictated by : SILVIA MIRANDA MD This examination was interpreted and the report reviewed and electronically signed by: SILVIA MIRANDA MD on Jan 26 2024 8:12PM EST [id number] ACTIONABLE Invalid Interpretation Code [facility] Comprehensive metabolic 2000 panelon 01-26-2024 Albumin [Mass/Vol] 4.3 g/dL Normal 3.9-4.9 [facility] Comment on above: Order Comment: Speci men Type: BLOOD SPECIMEN Ordering Facility: [facility] Address: [address] [place] [address] Performed By: #### 2 4323-8, 3040-3, 40436-5 #### [facility] CLIA [id number] [address] [place] [address] [place] ALP [Catalytic activity/Vol] 170 U/L High 38-113 [facility] Comment on above: Order Comment: Speci men Type: BLOOD SPECIMEN Ordering Facility: [facility] Address: [address] [place] [place] [id number] Performed By: #### 2 4323-8, 3040-3, #### [facility] CLIA [id number] [address] [place] [address] [place] ALT [Catalytic activity/Vol] 49 U/L Normal 10-54 [facility] Comment on above: Order Comment: Speci men Type: BLOOD SPECIMEN Ordering Facility: [facility] Address: [address] [place], [place] [address] Performed By: #### 2 4323-8, 0-3, #### [facility] CLIA [id number] [address] [place] [address] [place] Anion gap [Moles/Vol] 16 mmol/L High 8-15 [facility] Comment on above: Order Comment: Speci men Type: BLOOD SPECIMEN Ordering Facility: [facility] Address: [address] [place] [address] Performed By: #### 2 4323-8, 3, #### [facility] CLIA [id number] [address] [place] [address] [place] AST [Catalytic activity/Vol] 45 U/L High 14-40 [facility] Comment on above: Order Comment: Speci men Type: BLOOD SPECIMEN Ordering Facility: [facility] Address: [address] [place] [address] Performed By: #### 2 4323-8, 0-3, #### [facility] CLIA [id number] [address] [place] [address] [place] Bilirubin [Mass/Vol] 1.2 mg/dL Normal 0.2-1.3 [facility] Comment on above: Order Comment: Speci men Type: BLOOD SPECIMEN Ordering Facility: [facility] Address: [address] [place] [id number] Performed By: #### 2 4323-8, 3040-3, #### [facility] CLIA [id number] [address] [place] [address] [place] Calcium [Mass/Vol] 9.6 mg/dL Normal 8.5-10.2 [facility] Comment on above: Order Comment: Speci men Type: BLOOD SPECIMEN Ordering Facility: [facility] Address: [address] [place] [address] Performed By: #### 2 4323-8, 0-3, #### [facility] CLIA [id number] [address] [place] [address] [place] Chloride [Moles/Vol] 99 mmol/L Normal 98-107 [facility] Comment on above: Order Comment: Speci men Type: BLOOD SPECIMEN Ordering Facility: [facility] Address: [address] [place] [address] Performed By: #### 2 4323-8, 3, #### [facility] CLIA [id number] [address] [place] [address] [place] CO2 [Moles/Vol] 25 mmol/L Normal 22-30 [facility] Comment on above: Order Comment: Speci men Type: BLOOD SPECIMEN Ordering Facility: [facility] Address: [address] [place] [address] Performed By: #### 2 4323-8, 03, #### [facility] CLIA [id number] [address] [place] [address] [place] Creatinine [Mass/Vol] 0.67 mg/dL Low 0.73-1.22 [facility] Comment on above: Order Comment: Speci men Type: BLOOD SPECIMEN Ordering Facility: [facility] Address: [address] [place] [address] Performed By: #### 2 4323-8, 0-3, #### [facility] CLIA [id number] [address] [place] [address] [place] Creatinine and Glomerular filtration rate.predicted panel (S/P/Bld) 116 mL/min/1.73m??? Normal >=60 [facility] Comment on above: Order Comment: Kenneth strong Type: BLOOD SPECIMEN Ordering Facility: [facility] Address: [address] [place] [address] Result Comment: Lilia mated Glomerular Filtration Rate (eGFR) is calculated using the 2020 CKD-EPI creatinine equation. This equation utilizes serum creatinine, sex, and age as parameters. The creatinine assay has traceable calibration to isotope dilution-mass spectrometry. Refer to KDIGO guidelines for clinical interpretation. In patients with unstable renal function, e.g. those with acute kidney injury, the eGFR may not accurately reflect actual GFR. Performed By: #### 2 4323-8, 3040-3, #### [facility] CLIA [id number] [address] [place] [address] [place] Glucose [Mass/Vol] 93 mg/dL Normal 74-99 [facility] Comment on above: Order Comment: Kenneth strong Type: BLOOD SPECIMEN Ordering Facility: [facility] Address: [address] [place] [address] Result Comment: The [place] Diabetes [employer] (ADA) provides guidance for cutoff values for fasting glucose and random glucose. The ADA defines fasting as no caloric intake for at least 8 hours. Fasting plasma glucose results between 100 to 125 mg/dL indicate increased risk for diabetes (prediabetes). Fasting plasma glucose results greater than or equal to 126 mg/dL meet the criteria for diagnosis of diabetes. In the absence of unequivocal hyperglycemia, results should be confirmed by repeat testing. In a patient with classic symptoms of hyperglycemia or hyperglycemic crisis, random plasma glucose results greater than or equal to 200 mg/dL meet the criteria for diagnosis of diabetes. Reference: Standards of Medical Care in Diabetes 2016, [place] [employer] Association. Diabetes Care. 2016.39(Suppl 1). Performed By: #### 2 4323-8, 3040-3, #### [facility] CLIA [id number] [address] [place] [address] [place] Potassium [Moles/Vol] 3.0 mmol/L Low 3.7-5.1 [facility] Comment on above: Order Comment: Speci men Type: BLOOD SPECIMEN Ordering Facility: [facility] Address: [address] [place] [id number] Performed By: #### 2 4323-8, 0-3, #### [facility] CLIA [id number] [address] [place] [address] [place] Protein [Mass/Vol] 7.1 g/dL Normal 6.3-8.0 [facility] Comment on above: Order Comment: Speci men Type: BLOOD SPECIMEN Ordering Facility: [facility] Address: [address] [place], [place] [id number] Performed By: #### 2 4323-8, 3, #### [facility] CLIA [id number] [address] [place] Sodium [Moles/Vol] 140 mmol/L Normal 136-144 [facility] Comment on above: Order Comment: Speci men Type: BLOOD SPECIMEN Ordering Facility: [facility] Address: [address] [place] [address] Performed By: #### 2 4323-8, 3, #### [facility] CLIA [id number] [address] [place] [address] [place] Urea nitrogen [Mass/Vol] 9 mg/dL Normal 9-24 [facility] Comment on above: Order Comment: Speci men Type: BLOOD SPECIMEN Ordering Facility: [facility] Address: [address] [place] [address] [place] [id number] Performed By: #### 2 4323-8, 0-3, #### [facility] CLIA [id number] [address] [place] [address] [place] ECG COMPLETEon 01-26-2024 ECG COMPLETE Ventricular Rate : 1 08 BPM Atrial Rate : 108 BPM P-R Interval : 156 ms QRS Duration : 88 ms Q-T Interval : 366 ms QTC Calculation(Bazett) : 490 ms Calculated P [place] : 53 degrees Calculated R [place] : 17 degrees Calculated T [place] : 54 degrees Sinus tachycardia Possible Left atrial enlargement Borderline ECG NO STEMI Confirmed by NEENA CARRANZA DO ([id number]), brands editor NEENA MONTERO ([id number]) on 01/27/2024 9:16:07 AM NAME : FORD PHELAN PID : [id number] : 1975 Gender : Male Race : ORD : [id number] Procedure Date : Jan 26 2024 14:49:59 Edit Date : Jan 27 2024 09:16:08 Diagnosis: Sinus tachycardia Possible Left atrial enlargement Borderline ECG NO STEMI Confirmed by NEENA CARRANZA DO ([id number]), brands editor NEENA MONTERO ([id number]) on 01/27/2024 9:16:07 AM Test Reason : Arrhythmia Location : 302 : ED Overread By : NEENA CARRANZA DO Edited By : NEENA MONTERO Referred By : , Acquired by : [id number], [facility] ED NOTEon 01-26-2024 ED NOTE HNO ID: [id number] Author: NAGA MCGUIRE, RAJ Service: Nursing Author Type: Registered Nurse Type: ED Notes Filed: 01/26/2024 23:18 Note Text: This nurse spoke with August for report at this time [facility] ED PROV NOTEon 01-26-2024 ED PROV NOTE HNO ID: [id number] Author: TATYANA ECHEVERRIA DO Service: Emergency Medicine Author Type: Physician Type: ED Provider Notes Filed: 01/26/2024 22:06 Note Text: ED Provider Note Patient Name: Ford Phelan : 1975 SERVICE DATE: 01/26/24 History Patient presents with: Abdominal Pain: X2 days RUQ abd pain with nausea and vomiting hx of pancreatitis states this feels like another flare up. Patient is a 48-year-old male with a history of hypertension, depression, anxiety, pancreatitis, diverticulitis who presents to the emergency department for evaluation of diffuse abdominal pain. Patient states that symptoms started on Friday. Admits to nausea and vomiting without blood. States that he began feeling lightheaded today. Denies syncope, dizziness, chest pain, shortness of breath, diarrhea/constipation. States that he has not urinated in about a day. Denies dysuria or hematuria. PAST MEDICAL HISTORY No date: Anxiety state No date: Depression No date: HTN (hypertension) History reviewed. No pertinent surgical history. FAMILY HISTORY Problem Relation Age of Onset Hypertension Father No Ocular Disease Father Hypertension Mother No Ocular Disease Mother Social History Tobacco Use Smoking status: Every Day Current packs/day: 0.50 Average packs/day: 0.5 packs/day for 20.0 years (10.0 ttl pk-yrs) Types: Cigarettes Smokeless tobacco: Never Vaping Use Vaping status: Former Substances: Nicotine Devices: Pre-filled or refillable cartridge Substance and Sexual Activity Alcohol use: Yes Alcohol/week: 16.0 standard drinks of alcohol Types: 16 Cans of Beer (12oz) per week Drug use: Not Currently Types: Cocaine Sexual activity: Not on file Comment: not asked ALLERGIES Allergen Reactions Fentanyl Rash Review of Systems Constitutional: Negative for chills and fever. Respiratory: Negative for shortness of breath. Cardiovascular: Negative for chest pain. Gastrointestinal: Positive for abdominal pain and constipation. Negative for diarrhea, nausea and vomiting. Genitourinary: Negative for dysuria and hematuria. All other systems reviewed and are negative. Physical Exam Vitals BP Pulse Temp Temp src Resp SpO2 Weight Height 01/26/24 1445 01/26/24 1445 01/26/24 1445 01/26/24 1445 01/26/24 1445 01/26/24 1445 01/26/24 1447 -- 150/92 (!) 117 36.9 ?C (98.4 ?F) Oral 18 98 % 85.3 kg (188 lb) Physical Exam Vitals and nursing note reviewed. Constitutional: General: He is not in acute distress. Appearance: He is well-developed. He is not ill-appearing, toxic-appearing or diaphoretic. HENT: Head: Normocephalic and atraumatic. Eyes: Extraocular Movements: Extraocular movements intact. Pupils: Pupils are equal, round, and reactive to light. Cardiovascular: Rate and Rhythm: Normal rate and regular rhythm. Heart sounds: Normal heart sounds. Pulmonary: Effort: Pulmonary effort is normal. Breath sounds: Normal breath sounds. Abdominal: General: Abdomen is flat. Bowel sounds are normal. Palpations: Abdomen is soft. Tenderness: There is generalized abdominal tenderness. There is no right CVA tenderness, left CVA tenderness, guarding or rebound. Negative signs include Connors's sign, Rovsing's sign and McBurney's sign. Skin: General: Skin is warm and dry. Capillary Refill: Capillary refill takes less than 2 seconds. Neurological: General: No focal deficit present. Mental Status: He is alert and oriented to person, place, and time. Psychiatric: Mood and Affect: Mood normal. Behavior: Behavior normal. Diagnostic Testing ED Labs Ordered and Reviewed COMPLETE BLOOD COUNT AND DIFFERENTIAL - Abnormal; Notable for the following components: Result Value Ref Range WBC 11.99 (*) 3.70 - 11.00 k/uL MCV 100.2 (*) 80.0 - 100.0 fL MCH 37.2 (*) 26.0 - 34.0 pg MCHC 37.1 (*) 30.5 - 36.0 g/dL Abs Neut 9.25 (*) 1.45 - 7.50 k/uL Abs [place] 0.88 (*) <0.87 k/uL All other components within normal limits COMPREHENSIVE METABOLIC PANEL - Abnormal; Notable for the following components: Alkaline Phosphatase 170 (*) 38 - 113 U/L AST 45 (*) 14 - 40 U/L Creatinine 0.67 (*) 0.73 - 1.22 mg/dL Potassium 3.0 (*) 3.7 - 5.1 mmol/L Anion Gap 16 (*) 8 - 15 mmol/L All other components within normal limits LIPASE - Abnormal; Notable for the following components: Lipase 459 (*) 16 - 61 U/L All other components within normal limits SEPSIS LACTATE - Normal URINALYSIS WITH MICROSCOPIC, REFLEX CULTURE SEPSIS LACTATE W/ REFLEX (INITIAL) Procedures ED Course / Clinical Impression ED Course as of 01/26/242204 Tatyana Echeverria's Documentation Mon Jan 26, 2024 180 Lipase(!): 459 Concerning for pancreatitis. 180 US ABD RIGHT UPPER QUADRANT IMPRESSION: Hyperechoic hepatic parenchyma, nonspecific finding most commonly seen in the setting of steatosis. 1802 EKG personally reviewed and interpreted-sinus tachycardia, rate (more content not included)... Normal [facility] ED Triage Noteon 01-26-2024 ED Triage Note HNO ID: [id number] Author: DAMIAN RODRÍGUEZ DO Service: Emergency Medicine Author Type: Physician Type: ED Triage Notes Filed: 01/26/2024 14:49 Note Text: ED INTAKE NOTE Patient Name: Ford Phelan Service Date: 01/26/24 BRIEF HPI: This is a 48 year old male who presents to the ED with: Abdominal pain Pleasant 48-year-old gentleman with history of pancreatitis presenting with epigastric and right upper quadrant abdominal pain, for the last couple days. Associated with abdominal distention and nausea. Notes lightheadedness, episodic, also going on for the last couple days. BRIEF EXAM: NAD Awake and Alert Non labored breathing No focal neurological deficits INITIAL WORKUP AND DECISION MAKING: Orders Placed This Encounter US ABD RIGHT UPPER QUADRANT CBC with Diff Comprehensive Metabolic Panel Lipase Blood Urinalysis w Microscopic, reflex Culture ECG Complete w Interpretation > 35 years old (EKG) Provider examination performed via virtual platform with assistance from bedside clinician. SIGNATURE: Damian Rodríguez DO Normal [facility] HISTORY PHYSICALon HISTORY PHYSICAL HNO ID: [id number] Author: LUCY ANTUNEZ APRN.CNP Service: Hospital Medicine Author Type: Nurse Practitioner Type: H&P Filed: 01/27/2024 05:19 Note Text: DEPARTMENT OF HOSPITAL MEDICINE HISTORY AND PHYSICAL EXAM SERVICE DATE: 01/27/2024 SERVICE TIME: 4:57 AM Primary Care Physician: No primary care provider on file. NIGHT AND WEEKEND COVERAGE: [place] COVERAGE: Days: [phone], please contact via [employer] Nights: - floor: please page Hospitalist night cover #[phone] - 4W: please page Hospitalist night cover #[phone] - 5th floor: please page Hospitalist night cover #[phone] - SDU (18:00 - 19:00): Please page #[phone] - SDU (19:00 - 07:00): Please call [facility] at [phone] Subjective CHIEF COMPLAINT: abdominal pain, vomiting HPI: This is a 48 year old male with history of pancreatitis, depression/anxiety, nicotine and alcohol use who presents with abdominal pain and nausea/vomiting. States symptoms started on Friday. States last drink was ; had beers. Symptoms started on Friday Cramps, abdominal pain, drank power aid, vomiting States has not been able to keep anything down since. 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 1 cm right hepatic lesion for which multiphasic liver MRI is recommended for further characterization. PAST MEDICAL HISTORY No date: Anxiety state No date: Depression No date: HTN (hypertension) History reviewed. No pertinent surgical history. FAMILY HISTORY Problem Relation Age of Onset Hypertension Father No Ocular Disease Father Hypertension Mother No Ocular Disease Mother Social History Tobacco Use Smoking status: Every Day Current packs/day: 0.50 Average packs/day: 0.5 packs/day for 20.0 years (10.0 ttl pk-yrs) Types: Cigarettes Smokeless tobacco: Never Vaping Use Vaping status: Former Substances: Nicotine Devices: Pre-filled or refillable cartridge Substance Use Topics Alcohol use: Yes Alcohol/week: 16.0 standard drinks of alcohol Types: 16 Cans of Beer (12oz) per week Drug use: Not Currently Types: Cocaine PRIOR TO ADMISSION MEDICATIONS: fluvoxaMINE (LUVOX) 50 mg tablet, Take 1 tablet by mouth every 12 hours., Disp: , Rfl: , 01/25/2024 hydrOXYzine HCl (ATARAX) 25 mg tablet, Take 25 mg by mouth two times a day as needed for anxiety., Disp: , Rfl: , 01/26/2024 clonazePAM (KLONOPIN) 0.5 mg tablet, Take 0.5 mg by mouth once daily as needed for anxiety., Disp: , Rfl: lisinopril (ZESTRIL, PRINIVIL) 20 mg tablet, Take 20 mg by mouth once daily., Disp: , Rfl: ALLERGIES Allergen Reactions Fentanyl Rash REVIEW OF SYSTEM: CONSTITUTIONAL: No fevers, chills, nightsweats, unintended weight loss HEENT: Denies frequent or severe headaches, nasal congestion/sinus symptoms, problematic allergy problems. EYES: No diplopia or blurry vision. CARDIOVASCULAR: No chest pain, dyspnea, palpitations, orthopnea, PND, ankle edema. PULM: No dyspnea, unexplained cough. GI: No dysphagia/odynophagia, problematic reflux, constipation, diarrhea, changes in stool habits, hematochezia, melena. +abdominal pain, N/V : No new urinary complaints, including dysuria, gross hematuria or pyuria. NEURO: No new balance problems, peripheral weakness/paresthesias or numbness of concern. MUSC-SKEL: No new joint pain, swelling, or erythema. PSY: No concerns regarding depression, anxiety or panic. INTEGUMENTARY: No new skin changes (rash, new or changing mole, new growth) Objective PHYSICAL EXAM: BP 129/77 Pulse 67 Temp (Src) 97.9 (Oral) Resp 18 Wt 190 lb 14.7 oz (86.6kg) SpO2 96% O2 Therapy: Room Air Physical Exam Performed: GENERAL: Alert, well-developed, well-nourished, no acute distress, cooperative. HEAD: Normocephalic, atraumatic EYES: PERRLA, EOMI NECK: No jugulovenous distention, supple BACK: Symmetric, normal curvature, ROM intact LUNGS: Lung sounds clear, no spontaneous cough present. CARDIAC: Normal S1 and S2; no rubs, murmurs, or gallops ABDOMEN: Abdomen soft,, no distention. BS normal x4; generalized tenderness EXTREMITIES: Extremities normal, no deformities, clubbing, or skin discoloration. No edema present. NEURO: Alert and oriented x3. Normal cognition and motor function. Sensation intact. PULSES: 2+ radial Lines, Drains, and Airways Line Duration Peripheral 01/26/24 1850 Right Arm 20 Gauge <1 day Reviewed lines and needs to be continued: REASONS: Intravenous fluids, Telemetry, and Electrolyte replacement DATA: Diagnostic tests reviewed for today's visit: Most recent labs Most recent imaging Most recent EKG CBC, Coags, BMP, Mg, Phos Recent Labs 01/26/24 15 (more content not included)... Normal [facility] Lipase SerPl-cCncon 01-26-20 24 Lipase [Catalytic activity/Vol] 459 U/L High 16-61 [facility] Comment on above: Order Comment: Speci men Type: BLOOD SPECIMEN Ordering Facility: [facility] Address: [address] [place] [address] [place], [place] [address] Performed By: #### 2 4323-8, 3040-3, #### [facility] CLIA [id number] [place] [address] [place] SEPSIS LACTATEon 01-26-2024 Lactate [Moles/Vol] 1.7 mmol/L Normal 0.0-2.0 [facility] Comment on above: Order Comment: Speci men Type: BLOOD SPECIMEN Ordering Facility: [facility] Address: [facility] [address], [place] [address] Performed By: #### 2 4323-8, 3040-3, #### [facility] CLIA [id number] [address] [place] [address] [place] US ABD RIGHT UPPER QUADRANTo n 01-26-2024 US ABD RIGHT UPPER QUADRANT * * *Final Report* * * DATE OF EXAM: Jan 26 2024 5:04PM U 1032 - US ABD RIGHT UPPER QUADRANT / PROCEDURE REASON: Nausea/vomiting * * * * Physician Interpretation * * * * EXAMINATION: US ABD RIGHT UPPER QUADRANT CLINICAL HISTORY: Nausea/vomiting, Epigastric pain TECHNIQUE: US ABD RIGHT UPPER QUADRANT Grayscale ultrasound of the right upper quadrant. COMPARISON: CT dated 11/17/2023. FINDINGS: The visualized portion of the pancreas is unremarkable. The liver appears hyperechoic. There is no focal lesion. The gallbladder is without cholelithiasis, pericholecystic fluid, or wall thickening. Sonographic Connors's sign is negative. There is no intrahepatic or extrahepatic biliary ductal dilatation. Common bile duct measures 0.4 cm. The right kidney measures 11.5 cm in length and is without solid mass, hydronephrosis, or definite shadowing renal calculi. IMPRESSION: Hyperechoic hepatic parenchyma, nonspecific finding most commonly seen in the setting of steatosis. Marketing Automation Specialist: PSCB Transcribe Date/Time: Jan 26 2024 5:41P Dictated by : LAURIE HART MD This examination was interpreted and the report reviewed and electronically signed by: LAURIE HART MD on Jan 26 2024 5:49PM EST [id number] Normal [facility] CBC W Auto Differential pane l (Bld)on 11-19-2023 Basophils (Bld) [#/Vol] 0.04 10*3/uL Normal <0.11 [facility] Comment on above: Order Comment: Speci men Type: BLOOD SPECIMEN Ordering Facility: [facility] Address: [address] [place] [address] Performed By: #### 5 7021-8 #### [facility] CLIA [id number] [address] [place] [address] [place] Basophils/100 WBC (Bld) 0.6 % Normal [facility] Comment on above: Order Comment: Speci men Type: BLOOD SPECIMEN Ordering Facility: [facility] Address: [address] [place] [address] Performed By: #### 5 7021-8 #### [facility] CLIA [id number] [address] [place] [address] [place] Differential cell count method Nom (Bld) Auto Normal [facility] Comment on above: Order Comment: Speci men Type: BLOOD SPECIMEN Ordering Facility: [facility] Address: [address] [place] [address] Performed By: #### 5 7021-8 #### [facility] CLIA [id number] [address] [place] [address] [place] Eosinophils (Bld) [#/Vol] 0.39 10*3/uL Normal <0.46 [facility] Comment on above: Order Comment: Speci men Type: BLOOD SPECIMEN Ordering Facility: [facility] Address: [address] [place] [address] Performed By: #### 5 7021-8 #### [facility] CLIA [id number] [address] [place] [address] [place] Eosinophils/100 WBC (Bld) 5.9 % Normal [facility] Comment on above: Order Comment: Speci men Type: BLOOD SPECIMEN Ordering Facility: [facility] Address: [address] [place] [address] Performed By: #### 5 7021-8 #### [facility] CLIA [id number] [address] [place] [address] [place] Erythrocyte distribution width (RBC) [Ratio] 13.7 % Normal 11.5-15.0 [facility] Comment on above: Order Comment: Speci men Type: BLOOD SPECIMEN Ordering Facility: [facility] Address: [address] [place] [address] Performed By: #### 5 7021-8 #### [facility] CLIA [id number] [address] [place], [place] [id number] [place] [address] [place] Hematocrit (Bld) [Volume fraction] 42.3 % Normal 39.0-51.0 [facility] Comment on above: Order Comment: Speci men Type: BLOOD SPECIMEN Ordering Facility: [facility] Address: [address] [place] [address] Performed By: #### 5 7021-8 #### [facility] CLIA [id number] [address] [place], [place] [address] [place] [address] [place] Hemoglobin (Bld) [Mass/Vol] 15.0 g/dL Normal 13.0-17.0 [facility] Comment on above: Order Comment: Speci men Type: BLOOD SPECIMEN Ordering Facility: [facility] Address: [address] [place] [address] Performed By: #### 5 7021-8 #### [facility] CLIA [id number] [place] Immature granulocytes (Bld) [#/Vol] 10*3/uL Normal <0.10 [facility] Comment on above: Order Comment: Speci men Type: BLOOD SPECIMEN Ordering Facility: [facility] Address: [address] [place] [address] Performed By: #### 5 7021-8 #### [facility] CLIA [id number] [place] Immature granulocytes/100 WBC (Bld) 0.3 % Normal [facility] Comment on above: Order Comment: Speci men Type: BLOOD SPECIMEN Ordering Facility: [facility] Address: [address] [place] [address] Performed By: #### 5 7021-8 #### [facility] CLIA [id number] [address] [place] [address] [place] Lymphocytes (Bld) [#/Vol] 1.55 10*3/uL Normal 1.00-4.00 [facility] Comment on above: Order Comment: Speci men Type: BLOOD SPECIMEN Ordering Facility: [facility] Address: [address] [place] [address] Performed By: #### 5 7021-8 #### [facility] [place] [id number] [address] [place] [address] [place] Lymphocytes/100 WBC (Bld) 23.5 % Normal [facility] Comment on above: Order Comment: Speci men Type: BLOOD SPECIMEN Ordering Facility: [facility] Address: [address] [place] [address] Performed By: #### 5 7021-8 #### [facility] IA [id number] [place] [address] [place] MCH (RBC) [Entitic mass] 35.6 pg High 26.0-34.0 [facility] Comment on above: Order Comment: Speci men Type: BLOOD SPECIMEN Ordering Facility: [facility] Address: [address] [place] [address] Performed By: #### 5 7021-8 #### [facility] [place] [id number] [address] [place] [address] [place] MCHC (RBC) [Mass/Vol] 35.5 g/dL Normal 30.5-36.0 [facility] Comment on above: Order Comment: Speci men Type: BLOOD SPECIMEN Ordering Facility: [facility] Address: [address] [place] [address] Performed By: #### 5 7021-8 #### [facility] IA [id number] [place] [address] [place] MCV (RBC) [Entitic vol] 100.5 fL High 80.0-100.0 [facility] Comment on above: Order Comment: Speci men Type: BLOOD SPECIMEN Ordering Facility: [facility] Address: [address] [place] [address] Performed By: #### 5 7021-8 #### [facility] CLIA [id number] [address] [place] [address] [place] Monocytes (Bld) [#/Vol] 0.46 10*3/uL Normal <0.87 [facility] Comment on above: Order Comment: Speci men Type: BLOOD SPECIMEN Ordering Facility: [facility] Address: [address] [place] [address] Performed By: #### 5 7021-8 #### [facility] CLIA [id number] [address] [place] [address] [place] Monocytes/100 WBC (Bld) 7.0 % Normal [facility] Comment on above: Order Comment: Speci men Type: BLOOD SPECIMEN Ordering Facility: [facility] Address: [address] [place] [address] Performed By: #### 5 7021-8 #### [facility] IA [id number] [address] [place] [address] [place] Neutrophils (Bld) [#/Vol] 4.13 10*3/uL Normal 1.45-7.50 [facility] Comment on above: Order Comment: Speci men Type: BLOOD SPECIMEN Ordering Facility: [facility] Address: [address] [place] [address] Performed By: #### 5 7021-8 #### [facility] IA [id number] [address] [place] [address] [place] Neutrophils/100 WBC (Bld) 62.7 % Normal [facility] Comment on above: Order Comment: Speci men Type: BLOOD SPECIMEN Ordering Facility: [facility] Address: [address] [place] [address] Performed By: #### 5 7021-8 #### [facility] CLIA [id number] [address] [place] [address] [place] Nucleated RBC (Bld) [#/Vol] 10*3/uL Normal <0.01 [facility] Comment on above: Order Comment: Speci men Type: BLOOD SPECIMEN Ordering Facility: [facility] Address: [address] [place] [address] Performed By: #### 5 7021-8 #### [facility] IA [id number] [address] [place] [address] [place] Nucleated RBC/100 WBC (Bld) [Ratio] 0.0 /100 WBC Normal [facility] Comment on above: Order Comment: Speci men Type: BLOOD SPECIMEN Ordering Facility: [facility] Address: [address] [place] [address] Performed By: #### 5 7021-8 #### [facility] IA [id number] [address] [place] [address] [place] Platelet mean volume (Bld) [Entitic vol] 10.2 fL Normal 9.0-12.7 [facility] Comment on above: Order Comment: Speci men Type: BLOOD SPECIMEN Ordering Facility: [facility] Address: [address] [place] [address] Performed By: #### 5 7021-8 #### [facility] CLIA [id number] [address] [place] [address] [place] Platelets (Bld) [#/Vol] 142 10*3/uL Low 150-400 [facility] Comment on above: Order Comment: Speci men Type: BLOOD SPECIMEN Ordering Facility: [facility] Address: [address] [place] [address] Performed By: #### 5 7021-8 #### [facility] CLIA [id number] [address] [place] [address] [place] RBC (Bld) [#/Vol] 4.21 10*6/uL Normal 4.20-6.00 [facility] Comment on above: Order Comment: Speci men Type: BLOOD SPECIMEN Ordering Facility: [facility] Address: [address] [place] [address] Performed By: #### 5 7021-8 #### [facility] CLIA [id number] [address] [place] [address] [facility] [place] WBC (Bld) [#/Vol] 6.59 10*3/uL Normal 3.70-11.00 [facility] Comment on above: Order Comment: Speci men Type: BLOOD SPECIMEN Ordering Facility: [facility] Address: [address] [place] [address] Performed By: #### 5 7021-8 #### [facility] CLIA [id number] [address] [place] [address] [facility] HNO ID: [id number] Author: KELSEY ARANDA MD Service: Hospital Medicine Author Type: Physician Type: Discharge Summary Filed: 11/19/2023 11:12 Note Text: DISCHARGE SUMMARY PATIENT NAME: Ford Phelan ADMISSION DATE: 11/17/2023 DISCHARGE DATE: 11/19/2023 ATTENDING PHYSICIAN: Kelsey Aranda MD Code Status: Not on file PCP: No primary care provider on file. Highest Readmission Risk Score: 10 The 30 day readmissions risk score is derived from an internally validated risk model which evaluates patient level characteristics, utilization history, medication orders and lab results up until the day of discharge. Patients with a score of 40 or above are considered highest risk for readmission. Specific patient level drivers will be listed at the bottom of the summary. TRANSITIONS OF CARE CRITICAL ISSUES: EDWARDS MEDICATION CHANGES: Metronidazole tid for 10 days Ciprofloxacin bid for 10 days Tramadol tid prn for 7 days LAB MONITORING NEEDED: Not applicable IMAGING FOLLOW-UP: Not applicable LABS AND PROCEDURES PENDING AT DISCHARGE: No No pending results. FOLLOW UP: See follow up appointment listed below. REASON FOR HOSPITALIZATION: abdominal pain PRINCIPAL DIAGNOSIS: Acute diverticulitis Elevated lipase level related to 1. Abdominal pain related to 1. hypokalemia SECONDARY DIAGNOSIS: Principal Problem: Acute diverticulitis (POA: Yes) Active Problems: Pancreatitis (POA: Yes) Depression (POA: Yes) Uncomplicated alcohol abuse (POA: Yes) Hypokalemia (POA: Yes) Nicotine use disorder, F17.2 (POA: Yes) Resolved Problems: * No resolved hospital problems. * HOSPITAL COURSE: 48 year old male with PMH significant for who h/o pancreatitis, depression/anxiety, nicotine and alcohol use who presents with abdominal pain, nausea and vomiting x 3 days. ED workup significant for bili 1.9, alk phos 150, lipase 405, K 3.3. No leukocytosis. CT A/P with mild acute short segment splenic flexure diverticulitis with trace pericolonic fluid and inflammatory fat stranding in the left upper quadrant, no abscess or free air. Admitted for management. Patient improved with IV ATB and fluids. Lipase elevated was related to diverticulitis more so due to area of diverticulitis being the splenic flexure close to pancreatic ducts. Lipase normal on day of DC. Tolerated orals and had a BM> DC with ATB for 10 days. Follow up with PCP. OPERATIONS/PROCEDURE DURING THIS HOSPITALIZATION: * No surgery found * No other procedures CONSULTS DURING HOSPITALIZATION: Treatment Team: Attending Provider: Kelsey Aranda MD Orders Placed This Encounter Smoking Cessation Education CALL PHYSICIAN FOR ED [facility] FOLLOW UP PROVIDER FOR SUMMARY OF CARE - [facility] MEASURE PATIENT CONDITION AT DISCHARGE: Stable ADVANCE CARE PLANNING DISCUSSION (if applicable): N/A DISCHARGE DISPOSITION: Home with Self Care Discharge Physical Exam: VITAL SIGNS: BP 152/97 Pulse 62 Temp 36.2 ?C (97.2 ?F) (Oral) Resp 18 Ht 185.4 cm (6' 1) Wt 84.7 kg (186 lb 11.7 oz) SpO2 96% BMI 24.64 kg/m? Awake, alert mucosa moist lungs clear to auscultation no crackles or wheezes cardiac sounds rrr abdomen less distended than on prior visit bs ok mild tenderness. No leg edema. WOUND/SURGICAL SITE CARE: None SUPPLIES OR EQUIPMENT: None DIET: Low soft-fiber diet: No fresh fruits, whole grains, foods difficult to digest, or vegetables (unless they are well-cooked) ACTIVITY AND EXERCISE: Resume pre-hospital activity ADDITIONAL INFORMATION: Finish the course of ATB as indicated. Metronidazole may cause metallic taste of your mouth. Also remember do not drink alcohol while taking metronidazole. Follow up with your PCP Food with low fiber for next week. FOLLOW UP APPOINTMENTS: No future appointments. ALLERGIES No Known Allergies DISCHARGE MEDICATION: Medication List START taking these medications ciprofloxacin HCl 500 mg tablet Commonly known as: CIPRO Take 1 tablet by mouth every 12 hours at 6 am and 6 pm for 10 doses. metroNIDAZOLE 500 mg tablet Commonly known as: FLAGYL Take 1 tablet by mouth every 8 hours for 30 doses. potassium chloride ER 20 mEq tablet Commonly known as: KLOR-CON Take 2 tablets by mouth once daily for 3 doses. Start taking on: November 20, 2023 traMADol 50 mg tablet Commonly known as: ULTRAM Take 1 tablet by mouth every 8 hours as needed for up to 7 days. CONTINUE taking these medications clonazePAM 0.5 mg tablet Commonly known as: KlonoPIN fluvoxaMINE 50 mg tablet Commonly known as: LUVOX hydrOXYzine HCl 25 mg tablet Commonly known as: ATARAX lisinopril 20 mg tablet Commonly known as: ZESTRIL STOP taking these medications thiamine 100 mg tablet Commonly known as: VITAMIN B1 Where to Get Your Medications These medications were sent to [facility] [address] [place] [address] [address] [facility] - [phone] [place] [address] (more content not included)... Normal [facility] Comprehensive metabolic 2000 panelon 11-19-2023 Albumin [Mass/Vol] 3.2 g/dL Low 3.9-4.9 [facility] Comment on above: Order Comment: Speci men Type: BLOOD SPECIMEN Ordering Facility: [facility] Address: [address] [place] [address] Performed By: #### 2 4323-8, 0-3, #### [facility] CLIA [id number] [address] [place] [address] [place] ALP [Catalytic activity/Vol] 133 U/L High 38-113 [facility] Comment on above: Order Comment: Speci men Type: BLOOD SPECIMEN Ordering Facility: [facility] Address: [address] [place] [address] Performed By: #### 2 4323-8, 3040-3, #### [facility] CLIA [id number] [address] [place] [address] [place] ALT [Catalytic activity/Vol] 18 U/L Normal 10-54 [facility] Comment on above: Order Comment: Speci men Type: BLOOD SPECIMEN Ordering Facility: [facility] Address: [address] [place] [address] Performed By: #### 2 4323-8, 0-3, #### [facility] CLIA [id number] [address] [place] [address] [place] Anion gap [Moles/Vol] 10 mmol/L Normal 8-15 [facility] Comment on above: Order Comment: Speci men Type: BLOOD SPECIMEN Ordering Facility: [facility] Address: [address] [place] [address] Performed By: #### 2 4323-8, 3, #### [facility] CLIA [id number] [address] [place] [address] [place] AST [Catalytic activity/Vol] 26 U/L Normal 14-40 [facility] Comment on above: Order Comment: Speci men Type: BLOOD SPECIMEN Ordering Facility: [facility] Address: [address] [place] [address] Performed By: #### 2 4323-8, 3, #### [facility] CLIA [id number] [address] [place] [address] [place] Bilirubin [Mass/Vol] 0.8 mg/dL Normal 0.2-1.3 [facility] Comment on above: Order Comment: Speci men Type: BLOOD SPECIMEN Ordering Facility: [facility] Address: [address] [place] [address] Performed By: #### 2 4323-8, 3, #### [facility] CLIA [id number] [address] [place] [address] [place] Calcium [Mass/Vol] 8.1 mg/dL Low 8.5-10.2 [facility] Comment on above: Order Comment: Speci men Type: BLOOD SPECIMEN Ordering Facility: [facility] Address: [address] [place] [address] Performed By: #### 2 4323-8, 0-3, #### [facility] CLIA [id number] [address] [place] [address] [place] Chloride [Moles/Vol] 101 mmol/L Normal 98-107 [facility] Comment on above: Order Comment: Srinivasani ligia Type: BLOOD SPECIMEN Ordering Facility: [facility] Address: [address] [id number] Performed By: #### 2 4323-8, 0-3, #### [facility] CLIA [id number] [address] [place] [address] [place] CO2 [Moles/Vol] 22 mmol/L Normal 22-30 [facility] Comment on above: Order Comment: Srinivasani men Type: BLOOD SPECIMEN Ordering Facility: [facility] Address: [address] [place] [address] Performed By: #### 2 4323-8, 0-3, #### [facility] CLIA [id number] [address] [place] [address] [place] Creatinine [Mass/Vol] 0.68 mg/dL Low 0.73-1.22 [facility] Comment on above: Order Comment: Srinivasani men Type: BLOOD SPECIMEN Ordering Facility: [facility] Address: [address] [place] [address] Performed By: #### 2 4323-8, 3, #### [facility] CLIA [id number] [address] [place] [address] [place] Creatinine and Glomerular filtration rate.predicted panel (S/P/Bld) 115 mL/min/1.73m??? Normal >=60 [facility] Comment on above: Order Comment: Srinivasani men Type: BLOOD SPECIMEN Ordering Facility: [facility] Address: [address] [place], [place] [id number] Result Comment: Lilia mated Glomerular Filtration Rate (eGFR) is calculated using the 2020 CKD-EPI creatinine equation. This equation utilizes serum creatinine, sex, and age as parameters. The creatinine assay has traceable calibration to isotope dilution-mass spectrometry. Refer to KDIGO guidelines for clinical interpretation. In patients with unstable renal function, e.g. those with acute kidney injury, the eGFR may not accurately reflect actual GFR. Performed By: #### 2 4323-8, 3040-3, #### [facility] CLIA [id number] [address] [place] [address] [place] Glucose [Mass/Vol] 79 mg/dL Normal 74-99 [facility] Comment on above: Order Comment: Kenneth strong Type: BLOOD SPECIMEN Ordering Facility: [facility] Address: [address] [place], [place] [id number] Result Comment: The [place] Diabetes [employer] (ADA) provides guidance for cutoff values for fasting glucose and random glucose. The ADA defines fasting as no caloric intake for at least 8 hours. Fasting plasma glucose results between 100 to 125 mg/dL indicate increased risk for diabetes (prediabetes). Fasting plasma glucose results greater than or equal to 126 mg/dL meet the criteria for diagnosis of diabetes. In the absence of unequivocal hyperglycemia, results should be confirmed by repeat testing. In a patient with classic symptoms of hyperglycemia or hyperglycemic crisis, random plasma glucose results greater than or equal to 200 mg/dL meet the criteria for diagnosis of diabetes. Reference: Standards of Medical Care in Diabetes 2016, [place] [employer]. Diabetes Care. 2016.39(Suppl 1). Performed By: #### 2 4323-8, 0-3, #### [facility] CLIA [id number] [address] [place] [address] [place] Potassium [Moles/Vol] 3.9 mmol/L Normal 3.7-5.1 [facility] Comment on above: Order Comment: Kenneth strong Type: BLOOD SPECIMEN Ordering Facility: [facility] Address: [address] [place] [address] Performed By: #### 2 4323-8, 0-3, #### [facility] CLIA [id number] [address] [place] [address] [place] Protein [Mass/Vol] 5.6 g/dL Low 6.3-8.0 [facility] Comment on above: Order Comment: Kenneth strong Type: BLOOD SPECIMEN Ordering Facility: [facility] Address: [address] [place], [place] [id number] Performed By: #### 2 4323-8, 0-3, #### [facility] CLIA [id number] [address] [place] [address] [place] Sodium [Moles/Vol] 133 mmol/L Low 136-144 [facility] Comment on above: Order Comment: Speci men Type: BLOOD SPECIMEN Ordering Facility: [facility] Address: [address] [place] [address] Performed By: #### 2 4323-8, 0-3, #### [facility] CLIA [id number] [address] [place] [address] [place] Urea nitrogen [Mass/Vol] 9 mg/dL Normal 9-24 [facility] Comment on above: Order Comment: Speci men Type: BLOOD SPECIMEN Ordering Facility: [facility] Address: [address] [place] [address] Performed By: #### 2 4323-8, 3, #### [facility] CLIA [id number] [address] [place] [address] [place] Lipase SerPl-cCncon 11-19-19 Lipase [Catalytic activity/Vol] 43 U/L Normal 16-61 [facility] Comment on above: Order Comment: Speci men Type: BLOOD SPECIMEN Ordering Facility: [facility] Address: [address] [place] [address] Performed By: #### 2 4323-8, 3039-3, #### [facility] CLIA [id number] [address] [place] [address] [place] Magnesium SerPl-mCncon 11-18 Magnesium [Mass/Vol] 1.8 mg/dL Normal 1.7-2.3 [facility] Comment on above: Order Comment: Speci men Type: BLOOD SPECIMEN Ordering Facility: [facility] Address: [address] [place] [address] Performed By: #### 2 4323-8, 3040-3, #### [facility] CLIA [id number] [address] [place] [address] [place] Basic metabolic 2000 panelon 11-18-2023 Anion gap [Moles/Vol] 11 mmol/L Normal 8-15 [facility] Comment on above: Order Comment: Speci men Type: BLOOD SPECIMEN Ordering Facility: [facility] Address: [address] [place] [address] Performed By: #### 5 7021-8 #### [facility] CLIA [id number] [address] [place] [address] [place] Calcium [Mass/Vol] 8.0 mg/dL Low 8.5-10.2 [facility] Comment on above: Order Comment: Speci men Type: BLOOD SPECIMEN Ordering Facility: [facility] Address: [address] [place] [address] Performed By: #### 5 7021-8 #### [facility] IA [id number] [address] [place] [address] [place] Chloride [Moles/Vol] 104 mmol/L Normal 98-107 [facility] Comment on above: Order Comment: Speci men Type: BLOOD SPECIMEN Ordering Facility: [facility] Address: [address] [place] [address] Performed By: #### 5 7021-8 #### [facility] IA [id number] [address] [place] [address] [place] CO2 [Moles/Vol] 24 mmol/L Normal 22-30 [facility] Comment on above: Order Comment: Speci men Type: BLOOD SPECIMEN Ordering Facility: [facility] Address: [address] [place] [address] Performed By: #### 5 7021-8 #### [facility] CLIA [id number] [address] [place] [address] [place] Creatinine [Mass/Vol] 0.61 mg/dL Low 0.73-1.22 [facility] Comment on above: Order Comment: Speci men Type: BLOOD SPECIMEN Ordering Facility: [facility] Address: [address] [place] [address] Performed By: #### 5 7021-8 #### [facility] CLIA [id number] [address] [place] [address] [place] Creatinine and Glomerular filtration rate.predicted panel (S/P/Bld) 119 mL/min/1.73m??? Normal >=60 [facility] Comment on above: Order Comment: Kenneth strong Type: BLOOD SPECIMEN Ordering Facility: [facility] Address: [address] [place] [address] Result Comment: Lilia mated Glomerular Filtration Rate (eGFR) is calculated using the 2020 CKD-EPI creatinine equation. This equation utilizes serum creatinine, sex, and age as parameters. The creatinine assay has traceable calibration to isotope dilution-mass spectrometry. Refer to KDIGO guidelines for clinical interpretation. In patients with unstable renal function, e.g. those with acute kidney injury, the eGFR may not accurately reflect actual GFR. Performed By: #### 5 7021-8 #### [facility] CLIA [id number] [address] [place] [address] [place] Glucose [Mass/Vol] 75 mg/dL Normal 74-99 [facility] Comment on above: Order Comment: Kenneth strong Type: BLOOD SPECIMEN Ordering Facility: [facility] Address: [address] [place] [address] Result Comment: The [place] Diabetes [employer] (ADA) provides guidance for cutoff values for fasting glucose and random glucose. The ADA defines fasting as no caloric intake for at least 8 hours. Fasting plasma glucose results between 100 to 125 mg/dL indicate increased risk for diabetes (prediabetes). Fasting plasma glucose results greater than or equal to 126 mg/dL meet the criteria for diagnosis of diabetes. In the absence of unequivocal hyperglycemia, results should be confirmed by repeat testing. In a patient with classic symptoms of hyperglycemia or hyperglycemic crisis, random plasma glucose results greater than or equal to 200 mg/dL meet the criteria for diagnosis of diabetes. Reference: Standards of Medical Care in Diabetes 2016, [place] [employer]. Diabetes Care. 2016.39(Suppl 1). Performed By: #### 5 7021-8 #### [facility] CLIA [id number] [address] [place] [address] [place] Potassium [Moles/Vol] 3.6 mmol/L Low 3.7-5.1 [facility] Comment on above: Order Comment: Speci men Type: BLOOD SPECIMEN Ordering Facility: [facility] Address: [address] [place] [address] Performed By: #### 5 7021-8 #### [facility] CLIA [id number] [address] [place] [address] [place] Sodium [Moles/Vol] 139 mmol/L Normal 136-144 [facility] Comment on above: Order Comment: Speci men Type: BLOOD SPECIMEN Ordering Facility: [facility] Address: [address] [place] [address] Performed By: #### 5 7021-8 #### [facility] CLIA [id number] [address] [place] [address] [place] Urea nitrogen [Mass/Vol] 9 mg/dL Normal 9-24 [facility] Comment on above: Order Comment: Speci men Type: BLOOD SPECIMEN Ordering Facility: [facility] Address: [address] [place] [address] Performed By: #### 5 7021-8 #### [facility] CLIA [id number] [address] [place] [address] [place] CBC W Auto Differential pane l (Bld)on 11-18-2023 Basophils (Bld) [#/Vol] 0.05 10*3/uL Normal <0.11 [facility] Comment on above: Order Comment: Speci men Type: BLOOD SPECIMEN Ordering Facility: [facility] Address: [address] [place] [address] Performed By: #### 5 7021-8 #### [facility] CLIA [id number] [address] [place] Basophils/100 WBC (Bld) 0.6 % Normal [facility] Comment on above: Order Comment: Speci men Type: BLOOD SPECIMEN Ordering Facility: [facility] Address: [address] [place] [address] Performed By: #### 5 7021-8 #### [facility] CLIA [id number] [address] [place] [address] [place] Differential cell count method Nom (Bld) Auto Normal [facility] Comment on above: Order Comment: Speci men Type: BLOOD SPECIMEN Ordering Facility: [facility] Address: [address] [place] [address] Performed By: #### 5 7021-8 #### [facility] CLIA [id number] [address] [place] [address] [place] Eosinophils (Bld) [#/Vol] 0.31 10*3/uL Normal <0.46 [facility] Comment on above: Order Comment: Speci men Type: BLOOD SPECIMEN Ordering Facility: [facility] Address: [address] [place] [address] Performed By: #### 5 7021-8 #### [facility] IA [id number] [address] [place] [address] [place] Eosinophils/100 WBC (Bld) 3.9 % Normal [facility] Comment on above: Order Comment: Speci men Type: BLOOD SPECIMEN Ordering Facility: [facility] Address: [address] [place] [address] Performed By: #### 5 7021-8 #### [facility] IA [id number] [address] [place] [address] [place] Erythrocyte distribution width (RBC) [Ratio] 14.0 % Normal 11.5-15.0 [facility] Comment on above: Order Comment: Speci men Type: BLOOD SPECIMEN Ordering Facility: [facility] Address: [address] [place] [address] Performed By: #### 5 7021-8 #### [facility] IA [id number] [address] [place] Hematocrit (Bld) [Volume fraction] 41.8 % Normal 39.0-51.0 [facility] Comment on above: Order Comment: Speci men Type: BLOOD SPECIMEN Ordering Facility: [facility] Address: [address] [place] [address] Performed By: #### 5 7021-8 #### [facility] CLIA [id number] [address] [place] [address] [place] Hemoglobin (Bld) [Mass/Vol] 14.9 g/dL Normal 13.0-17.0 [facility] Comment on above: Order Comment: Speci men Type: BLOOD SPECIMEN Ordering Facility: [facility] Address: [address] [place] [address] Performed By: #### 5 7021-8 #### [facility] IA [id number] [address] [place] [address] [place] Immature granulocytes (Bld) [#/Vol] 0.04 10*3/uL Normal <0.10 [facility] Comment on above: Order Comment: Speci men Type: BLOOD SPECIMEN Ordering Facility: [facility] Address: [address] [place] [address] Performed By: #### 5 7021-8 #### [facility] IA [id number] [address] [place] [address] [place] Immature granulocytes/100 WBC (Bld) 0.5 % Normal [facility] Comment on above: Order Comment: Speci men Type: BLOOD SPECIMEN Ordering Facility: [facility] Address: [address] [place] [address] Performed By: #### 5 7021-8 #### [facility] IA [id number] [address] [place] [address] [place] Lymphocytes (Bld) [#/Vol] 1.61 10*3/uL Normal 1.00-4.00 [facility] Comment on above: Order Comment: Speci men Type: BLOOD SPECIMEN Ordering Facility: [facility] Address: [address] [place] [address] Performed By: #### 5 7021-8 #### [facility] IA [id number] [address] [place] [address] [place] Lymphocytes/100 WBC (Bld) 20.3 % Normal [facility] Comment on above: Order Comment: Speci men Type: BLOOD SPECIMEN Ordering Facility: [facility] Address: [address] [place] [address] Performed By: #### 5 7021-8 #### [facility] IA [id number] [address] [place] MCH (RBC) [Entitic mass] 35.9 pg High 26.0-34.0 [facility] Comment on above: Order Comment: Speci men Type: BLOOD SPECIMEN Ordering Facility: [facility] Address: [address] [place] [address] Performed By: #### 5 7021-8 #### [facility] IA [id number] [address] [place] [address] [place] MCHC (RBC) [Mass/Vol] 35.6 g/dL Normal 30.5-36.0 [facility] Comment on above: Order Comment: Speci men Type: BLOOD SPECIMEN Ordering Facility: [facility] Address: [address] [place] [address] Performed By: #### 5 7021-8 #### [facility] IA [id number] [address] [place] [address] [place] MCV (RBC) [Entitic vol] 100.7 fL High 80.0-100.0 [facility] Comment on above: Order Comment: Speci men Type: BLOOD SPECIMEN Ordering Facility: [facility] Address: [address] [place] [address] Performed By: #### 5 7021-8 #### [facility] IA [id number] [address] [place] Monocytes (Bld) [#/Vol] 0.45 10*3/uL Normal <0.87 [facility] Comment on above: Order Comment: Speci men Type: BLOOD SPECIMEN Ordering Facility: [facility] Address: [address] [place] [address] Performed By: #### 5 7021-8 #### [facility] IA [id number] [address] [place] [id number] [place] Monocytes/100 WBC (Bld) 5.7 % Normal [facility] Comment on above: Order Comment: Speci men Type: BLOOD SPECIMEN Ordering Facility: [facility] Address: [address] [place] [address] Performed By: #### 5 7021-8 #### [facility] CLIA [id number] [address] [place] [address] [place] Neutrophils (Bld) [#/Vol] 5.47 10*3/uL Normal 1.45-7.50 [facility] Comment on above: Order Comment: Speci men Type: BLOOD SPECIMEN Ordering Facility: [facility] Address: [address] [place] [address] Performed By: #### 5 7021-8 #### [facility] CLIA [id number] [address] [place] [address] [place] Neutrophils/100 WBC (Bld) 69.0 % Normal [facility] Comment on above: Order Comment: Speci men Type: BLOOD SPECIMEN Ordering Facility: [facility] Address: [address] [place] [address] Performed By: #### 5 7021-8 #### [facility] CLIA [id number] [address] [place] [address] [place] Nucleated RBC (Bld) [#/Vol] 10*3/uL Normal <0.01 [facility] Comment on above: Order Comment: Speci men Type: BLOOD SPECIMEN Ordering Facility: [facility] Address: [address] [place] [address] Performed By: #### 5 7021-8 #### [facility] CLIA [id number] [address] [place] [address] [place] Nucleated RBC/100 WBC (Bld) [Ratio] 0.0 /100 WBC Normal [facility] Comment on above: Order Comment: Speci men Type: BLOOD SPECIMEN Ordering Facility: [facility] Address: [address] [place] [address] Performed By: #### 5 7021-8 #### [facility] CLIA [id number] [address] [place] [address] [place] Platelet mean volume (Bld) [Entitic vol] 10.5 fL Normal 9.0-12.7 [facility] Comment on above: Order Comment: Speci men Type: BLOOD SPECIMEN Ordering Facility: [facility] Address: [address] [place] [address] Performed By: #### 5 7021-8 #### [facility] CLIA [id number] [address] [place] [address] [place] Platelets (Bld) [#/Vol] 148 10*3/uL Low 150-400 [facility] Comment on above: Order Comment: Speci men Type: BLOOD SPECIMEN Ordering Facility: [facility] Address: [address] [place] [address] Performed By: #### 5 7021-8 #### [facility] CLIA [id number] [address] [place] [address] [place] RBC (Bld) [#/Vol] 4.15 10*6/uL Low 4.20-6.00 [facility] Comment on above: Order Comment: Speci men Type: BLOOD SPECIMEN Ordering Facility: [facility] Address: [address] [place] [address] Performed By: #### 5 7021-8 #### [facility] CLIA [id number] [address] [place] [address] [place] WBC (Bld) [#/Vol] 7.93 10*3/uL Normal 3.70-11.00 [facility] Comment on above: Order Comment: Speci men Type: BLOOD SPECIMEN Ordering Facility: [facility] Address: [address] [place] [address] Performed By: #### 5 7021-8 #### [facility] IA [id number] [address] [place] [address] [place] Magnesium SerPl-mCncon 11-17 Magnesium [Mass/Vol] 1.4 mg/dL Low 1.7-2.3 [facility] Comment on above: Order Comment: Speci men Type: BLOOD SPECIMEN Ordering Facility: [facility] Address: [address] [place] [address] Performed By: #### 5 7021-8 #### [facility] IA [id number] [address] [place] [address] [place] CBC panel Auto (Bld)on 11-16 Erythrocyte distribution width (RBC) [Ratio] 14.3 % Normal 11.5-15.0 [facility] Comment on above: Order Comment: Speci men Type: BLOOD SPECIMEN Ordering Facility: [facility] Address: [address] [place] [address] Performed By: #### 5 7021-8 #### [facility] IA [id number] [place] [id number] [place] [address] [place] Hematocrit (Bld) [Volume fraction] 48.7 % Normal 39.0-51.0 [facility] Comment on above: Order Comment: Speci men Type: BLOOD SPECIMEN Ordering Facility: [facility] Address: [address] [place] [address] Performed By: #### 5 7021-8 #### [facility] IA [id number] [address] [place] [address] [place] Hemoglobin (Bld) [Mass/Vol] 17.6 g/dL High 13.0-17.0 [facility] Comment on above: Order Comment: Speci men Type: BLOOD SPECIMEN Ordering Facility: [facility] Address: [address] [place] [address] Performed By: #### 5 7021-8 #### [facility] IA [id number] [address] [place] [address] [place] MCH (RBC) [Entitic mass] 35.3 pg High 26.0-34.0 [facility] Comment on above: Order Comment: Speci men Type: BLOOD SPECIMEN Ordering Facility: [facility] Address: [address] [place] [address] Performed By: #### 5 7021-8 #### [facility] IA [id number] [address] [place] [address] [place] MCHC (RBC) [Mass/Vol] 36.1 g/dL High 30.5-36.0 [facility] Comment on above: Order Comment: Speci men Type: BLOOD SPECIMEN Ordering Facility: [facility] Address: [address] [place] [address] Performed By: #### 5 7021-8 #### [facility] CLIA [id number] [address] [place] [address] [place] MCV (RBC) [Entitic vol] 97.6 fL Normal 80.0-100.0 [facility] Comment on above: Order Comment: Speci men Type: BLOOD SPECIMEN Ordering Facility: [facility] Address: [address] [place] [address] Performed By: #### 5 7021-8 #### [facility] [facility] CLIA [id number] [address] [place] [address] [place] Nucleated RBC (Bld) [#/Vol] 10*3/uL Normal <0.01 [facility] Comment on above: Order Comment: Speci men Type: BLOOD SPECIMEN Ordering Facility: [facility] Address: [address] [place] [address] Performed By: #### 5 7021-8 #### [facility] CLIA [id number] [address] [place] [address] [place] Platelet mean volume (Bld) [Entitic vol] 9.9 fL Normal 9.0-12.7 [facility] Comment on above: Order Comment: Speci men Type: BLOOD SPECIMEN Ordering Facility: [facility] Address: [address] [place] [address] Performed By: #### 5 7021-8 #### [facility] CLIA [id number] [address] [place] [id number] [place] Platelets (Bld) [#/Vol] 178 10*3/uL Normal 150-400 [facility] Comment on above: Order Comment: Speci men Type: BLOOD SPECIMEN Ordering Facility: [facility] Address: [address] [place] [address] Performed By: #### 5 7021-8 #### [facility] CLIA [id number] [address] [place] [address] [place] RBC (Bld) [#/Vol] 4.99 10*6/uL Normal 4.20-6.00 [facility] Comment on above: Order Comment: Speci men Type: BLOOD SPECIMEN Ordering Facility: [facility] Address: [address] [place] [address] Performed By: #### 5 7021-8 #### [facility] CLIA [id number] [address] [place] [address] [place] [facility] [place] WBC (Bld) [#/Vol] 10.41 10*3/uL Normal 3.70-11.00 [facility] Comment on above: Order Comment: Speci men Type: BLOOD SPECIMEN Ordering Facility: [facility] Address: [address] [place] [address] Performed By: #### 5 7021-8 #### [facility] IA [id number] [place] CT ABD/PEL W IVCONon 024 CT ABD/PEL W IVCON * * *Final Report* * * DATE OF EXAM: Nov 17 2023 11:05AM [facility] 0530 - CT ABD/PEL W IVCON / PROCEDURE REASON: Nausea/vomiting * * * * Physician Interpretation * * * * EXAMINATION: CT ABDOMEN AND PELVIS WITH IV CONTRAST CLINICAL HISTORY: Nausea and vomiting TECHNIQUE: CT of the abdomen and pelvis was performed using standard technique, scanning from just above the dome of the diaphragm to the symphysis pubis. MQ: CTAP_3 Contrast: IV: 100 ml of Omnipaque 350 : ml of CT Radiation dose: Integrated Dose-length product (DLP) for this visit = 619 mGy*cm. CT Dose Reduction Employed: Automated exposure control(AEC) and iterative recon COMPARISON: 08/09/2021 RESULT: Liver: No mass. Hepatic steatosis. Biliary: No bile duct dilation. Gallbladder is unremarkable. LEFT upper quadrant: Mild inflammatory changes in the LEFT upper quadrant with minimal inflammatory fat stranding adjacent to the anterior and medial spleen, adjacent to the pancreatic tail, and surrounding the splenic flexure of the colon which contains multiple diverticula associated with short segment circumferential wall thickening with trace pericolonic fluid (sagittal image 109, axial images 32-47, coronal image 45). No bowel dilatation. No Free air or fluid collection. Spleen: No splenomegaly. Pancreas: No mass or duct dilation. Mild fat stranding and fluid adjacent to the pancreatic tail on the LEFT upper quadrant, likely related to acute splenic flexure diverticulitis as described above. Adrenals: No mass. Kidneys: No mass, calculus or hydronephrosis. GI tract: Small hiatal hernia. Stomach is not distended. No bowel obstruction. Normal appendix. Colonic diverticulosis with short segment splenic flexure wall thickening and inflammatory fat stranding and trace fluid adjacent to an inflamed diverticulum. No free air or abscess. Lymph nodes: No abdominal or pelvic lymphadenopathy. Mesentery/Peritoneum: No ascites or mass. Retroperitoneum: No mass. Vasculature: -Abdominal aorta and iliac veins: No aneurysm. -Celiac and SMA: Patent without stenosis. -Portal venous system (SMV, splenic vein, portal vein and branches): Patent. -Hepatic veins: Patent or Incompletely opacified, likely due to early phase of enhancement. Pelvis: No mass, ascites or fluid collection. Incomplete bladder distention. The sigmoid colon is collapsed. Bones/Soft Tissues: Multilevel inferior thoracic and lumbar spine degenerative changes with severe disc space narrowing and grade 1 degenerative retrolisthesis at L5-S1. No acute fracture. No aggressive osseous lesion. Tiny fat-containing umbilical hernia. Lower thorax: Small hiatal hernia. Remote LEFT rib deformities with posterior 9th and 10th rib fixation hardware. 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 Mild basilar atelectasis/scarring, LEFT greater than RIGHT. Trace LEFT pleural effusion (2:30). Localizer images: No additional findings. IMPRESSION: Mild acute short segment splenic flexure diverticulitis with trace pericolonic fluid and inflammatory fat stranding in the LEFT upper quadrant. No free air or abscess. Trace LEFT pleural fluid, mild bibasilar atelectasis/scarring, and remote LEFT rib fractures and fixation hardware. No other acute process in the abdomen or pelvis or other significant change from 08/09/2021. Marketing Automation Specialist: ELISABETH Transcribe Date/Time: Nov 17 2023 11:47A Dictated by : YOLY PHILLIPS MD This examination was interpreted and the report reviewed and electronically signed by: YOLY PHILLIPS MD on Nov 17 2023 12:16PM EST [id number] Normal [facility] Comprehensive metabolic 2000 panelon 11-17-2023 Albumin [Mass/Vol] 4.0 g/dL Normal 3.9-4.9 [facility] Comment on above: Order Comment: Speci men Type: BLOOD SPECIMEN Ordering Facility: [facility] Address: [address] [place] [address] Performed By: #### 5 7021-8 #### [facility] CLIA [id number] [address] [place] [address] [place] ALP [Catalytic activity/Vol] 150 U/L High 38-113 [facility] Comment on above: Order Comment: Speci men Type: BLOOD SPECIMEN Ordering Facility: [facility] Address: [address] [place] [address] Performed By: #### 5 7021-8 #### [facility] CLIA [id number] [address] [place] [address] [place] ALT [Catalytic activity/Vol] 35 U/L Normal 10-54 [facility] Comment on above: Order Comment: Speci men Type: BLOOD SPECIMEN Ordering Facility: [facility] Address: [address] [place] [address] Performed By: #### 5 7021-8 #### [facility] CLIA [id number] [address] [place] [address] [place] Anion gap [Moles/Vol] 11 mmol/L Normal 8-15 [facility] Comment on above: Order Comment: Speci men Type: BLOOD SPECIMEN Ordering Facility: [facility] Address: [address] [place] [address] Performed By: #### 5 7021-8 #### [facility] CLIA [id number] [address] [place] [address] [place] AST [Catalytic activity/Vol] 33 U/L Normal 14-40 [facility] Comment on above: Order Comment: Speci men Type: BLOOD SPECIMEN Ordering Facility: [facility] Address: [address] [place] [address] Performed By: #### 5 7021-8 #### [facility] CLIA [id number] [address] [place] [address] [place] Bilirubin [Mass/Vol] 1.9 mg/dL High 0.2-1.3 [facility] Comment on above: Order Comment: Speci men Type: BLOOD SPECIMEN Ordering Facility: [facility] Address: [address] [place] [address] Performed By: #### 5 7021-8 #### [facility] CLIA [id number] [address] [place] [address] [place] Calcium [Mass/Vol] 9.0 mg/dL Normal 8.5-10.2 [facility] Comment on above: Order Comment: Speci men Type: BLOOD SPECIMEN Ordering Facility: [facility] Address: [address] [place] [address] Performed By: #### 5 7021-8 #### [facility] CLIA [id number] [address] [place] [address] [place] Chloride [Moles/Vol] 98 mmol/L Normal 98-107 [facility] Comment on above: Order Comment: Speci men Type: BLOOD SPECIMEN Ordering Facility: [facility] Address: [address] [place] [address] Performed By: #### 5 7021-8 #### [facility] CLIA [id number] [address] [place] [address] [place] CO2 [Moles/Vol] 29 mmol/L Normal 22-30 [facility] Comment on above: Order Comment: Speci men Type: BLOOD SPECIMEN Ordering Facility: [facility] Address: [address] [place] [address] Performed By: #### 5 7021-8 #### [facility] CLIA [id number] [address] [place] [address] [place] Creatinine [Mass/Vol] 0.72 mg/dL Low 0.73-1.22 [facility] Comment on above: Order Comment: Kenneth strong Type: BLOOD SPECIMEN Ordering Facility: [facility] Address: [address] [place] [address] Performed By: #### 5 7021-8 #### [facility] CLIA [id number] [address] [place] [address] [place] Creatinine and Glomerular filtration rate.predicted panel (S/P/Bld) 113 mL/min/1.73m??? Normal >=60 [facility] Comment on above: Order Comment: Kenneth strong Type: BLOOD SPECIMEN Ordering Facility: [facility] Address: [address] [place] [address] Result Comment: Lilia mated Glomerular Filtration Rate (eGFR) is calculated using the 2020 CKD-EPI creatinine equation. This equation utilizes serum creatinine, sex, and age as parameters. The creatinine assay has traceable calibration to isotope dilution-mass spectrometry. Refer to KDIGO guidelines for clinical interpretation. In patients with unstable renal function, e.g. those with acute kidney injury, the eGFR may not accurately reflect actual GFR. Performed By: #### 5 7021-8 #### [facility] CLIA [id number] [address] [place] [address] [place] Glucose [Mass/Vol] 105 mg/dL High 74-99 [facility] Comment on above: Order Comment: Kenneth strong Type: BLOOD SPECIMEN Ordering Facility: [facility] Address: [address] [place] [address] Result Comment: The [place] Diabetes Association (ADA) provides guidance for cutoff values for fasting glucose and random glucose. The ADA defines fasting as no caloric intake for at least 8 hours. Fasting plasma glucose results between 100 to 125 mg/dL indicate increased risk for diabetes (prediabetes). Fasting plasma glucose results greater than or equal to 126 mg/dL meet the criteria for diagnosis of diabetes. In the absence of unequivocal hyperglycemia, results should be confirmed by repeat testing. In a patient with classic symptoms of hyperglycemia or hyperglycemic crisis, random plasma glucose results greater than or equal to 200 mg/dL meet the criteria for diagnosis of diabetes. Reference: Standards of Medical Care in Diabetes 2016, [place] [employer] Association. Diabetes Care. 2016.39(Suppl 1). Performed By: #### 5 7021-8 #### [facility] CLIA [id number] [address] [place] [address] [place] Potassium [Moles/Vol] 3.3 mmol/L Low 3.7-5.1 [facility] Comment on above: Order Comment: Speci men Type: BLOOD SPECIMEN Ordering Facility: [facility] Address: [address] [place] [address] Performed By: #### 5 7021-8 #### [facility] IA [id number] [address] [place] [address] [place] Protein [Mass/Vol] 6.6 g/dL Normal 6.3-8.0 [facility] Comment on above: Order Comment: Speci men Type: BLOOD SPECIMEN Ordering Facility: [facility] Address: [address] [place] [address] Performed By: #### 5 7021-8 #### [facility] IA [id number] [address] [place] [address] [place] [facility] Sodium [Moles/Vol] 138 mmol/L Normal 136-144 [facility] Comment on above: Order Comment: Speci men Type: BLOOD SPECIMEN Ordering Facility: [facility] Address: [address] [place] [address] Performed By: #### 5 7021-8 #### [facility] IA [id number] [address] [place] [address] [place] Urea nitrogen [Mass/Vol] 9 mg/dL Normal 9-24 [facility] Comment on above: Order Comment: Speci men Type: BLOOD SPECIMEN Ordering Facility: [facility] Address: [address] [place] [address] Performed By: #### 5 7021-8 #### [facility] IA [id number] [address] [place] [address] [facility] [place] ED NOTEon 11-17-2023 ED NOTE HNO ID: [id number] Author: SANJIV VÁSQUEZ RN Service: ? Author Type: Registered Nurse Type: ED Notes Filed: 11/17/2023 18:02 Note Text: Pt scopolamine patch is placed behind right ear [facility] ED NOTE HNO ID: [id number] Author: DAPHNEY DOE RN Service: Emergency Medicine Author Type: Registered Nurse Type: ED Notes Filed: 11/17/2023 09:21 Note Text: Patient presents to ER, states that he started with vomiting yesterday, along with bloating/abdominal cramping. Patient noting last BM 3 days ago, decreased urination. Patient denies any abdominal surgical history. [facility] ED PROV NOTEon 11-17-2023 ED PROV NOTE HNO ID: [id number] Author: JOSE E TARANGO DO Service: ? Author Type: Physician Type: ED Provider Notes Filed: 11/19/2023 06:27 Note Text: ED Provider Note Patient Name: Ford Phelan : 1975 SERVICE DATE: 11/17/23 History Patient presents with: Abdominal Pain Nausea AND Vomiting Patient is a 48-year-old male with a history of anxiety, depression, hypertension, pancreatitis, alcohol use who presents to the emergency department for evaluation of abdominal pain, nausea/vomiting and constipation. Patient states that he drank on Friday, awoke with the symptoms on Friday. Denies hematemesis. Admits to constipation, last bowel movement being 3 days prior. States that he last urinated yesterday. He has not been able to keep anything down. Rates his pain currently as a 5/10, he has not been able to take any meds at home with his vomiting, diffuse however worse in the left upper quadrant. Patient states that this feels similar to when he had pancreatitis in the past. Denies chest pain, shortness of breath, fevers. Admits to chills. Admits to 1 pack/day smoking history. He is interested in resources for his alcohol use, states that he drinks about 3 times a week. States that he drank extra on Friday as they were celebrating his friend's birthday. PAST MEDICAL HISTORY Diagnosis Date Anxiety state Depression HTN (hypertension) No past surgical history on file. FAMILY HISTORY Problem Relation Age of Onset Hypertension Father No Ocular Disease Father Hypertension Mother No Ocular Disease Mother Social History Tobacco Use Smoking status: Every Day Packs/day: 0.50 Years: 20.00 Additional pack years: 0.00 Total pack years: 10.00 Types: Cigarettes Smokeless tobacco: Never Vaping Use Vaping Use: Former Substances: Nicotine Devices: Pre-filled or refillable cartridge Substance and Sexual Activity Alcohol use: Yes Alcohol/week: 16.0 standard drinks of alcohol Types: 16 Cans of Beer (12oz) per week Drug use: Not Currently Types: Cocaine Sexual activity: Not on file Comment: not asked ALLERGIES No Known Allergies Review of Systems Constitutional: Positive for chills. Negative for fever. Respiratory: Negative for shortness of breath. Cardiovascular: Negative for chest pain. Gastrointestinal: Positive for abdominal pain, nausea and vomiting. Negative for constipation and diarrhea. Genitourinary: Negative for dysuria and hematuria. All other systems reviewed and are negative. Physical Exam Vitals [11/17/23 0918] BP Pulse Temp Temp src Resp SpO2 Weight Height 164/96 69 36.9 ?C (98.5 ?F) Temporal Art 18 98 % 83.9 kg (185 lb) 1.854 m (6' 1) Physical Exam Vitals and nursing note reviewed. Constitutional: General: He is not in acute distress. Appearance: He is ill-appearing. He is not toxic-appearing or diaphoretic. Comments: Generally ill-appearing HENT: Head: Normocephalic and atraumatic. Eyes: Extraocular Movements: Extraocular movements intact. Pupils: Pupils are equal, round, and reactive to light. Cardiovascular: Rate and Rhythm: Normal rate and regular rhythm. Heart sounds: Normal heart sounds. Pulmonary: Effort: Pulmonary effort is normal. Breath sounds: Normal breath sounds. Abdominal: General: Abdomen is flat. Bowel sounds are normal. Palpations: Abdomen is soft. Tenderness: There is abdominal tenderness in the epigastric area and left upper quadrant. There is no right CVA tenderness, left CVA tenderness, guarding or rebound. Negative signs include Connors's sign, Rovsing's sign and McBurney's sign. Skin: General: Skin is warm and dry. Capillary Refill: Capillary refill takes less than 2 seconds. Neurological: General: No focal deficit present. Mental Status: He is alert and oriented to person, place, and time. Psychiatric: Mood and Affect: Mood normal. Behavior: Behavior normal. Diagnostic Testing ED Labs Ordered and Reviewed COMPREHENSIVE METABOLIC PANEL - Abnormal; Notable for the following components: Result Value Ref Range Bilirubin, Total 1.9 (*) 0.2 - 1.3 mg/dL Alkaline Phosphatase 150 (*) 38 - 113 U/L Glucose 105 (*) 74 - 99 mg/dL Creatinine 0.72 (*) 0.73 - 1.22 mg/dL Potassium 3.3 (*) 3.7 - 5.1 mmol/L All other components within normal limits COMPLETE BLOOD COUNT - Abnormal; Notable for the following components: Hemoglobin 17.6 (*) 13.0 - 17.0 g/dL MCH 35.3 (*) 26.0 - 34.0 pg MCHC 36.1 (*) 30.5 - 36.0 g/dL All other components within normal limits LIPASE UA DIP,URINE (ED-POC) Procedures ED Course / Clinical Impression Clinical Impressions as of 11/17/23 1325 Acute pancreatitis, unspecified complication status, unspecified pancreatitis type Diverticulitis Nausea and vomiting, unspecified vomiting type Pain of upper abdomen Constipation, unspecified constipation type MDM / Disposition / Plan Nursing notes were reviewed : Yes (more content not included)... Normal [facility] ED Triage Noteon 11-17-2023 ED Triage Note HNO ID: [id number] Author: JEANINE LANCE DO Service: Emergency Medicine Author Type: Physician Type: ED Triage Notes Filed: 11/17/2023 09:23 Note Text: ED INTAKE NOTE Patient Name: Ford Phelan Service Date: 11/17/23 BRIEF HPI: This is a 48 year old male who presents to the ED with: vomiting and ab discomfort, cramping and lower ab bloating, can't keep food down since yesterday, last BM 3 days ago, dec urination. BRIEF EXAM: NAD Awake and Alert Non labored breathing INITIAL WORKUP AND DECISION MAKING: Orders Placed This Encounter CT ABD/PEL W IVCON COMPREHENSIVE METABOLIC PANEL (BMP+LFT) LIPASE BLOOD CBC UA DIP,URINE (ED-POC) iv contrast (radiology procedure) Provider examination performed via virtual platform with assistance from bedside clinician. SIGNATURE: Jeanine Lance DO [facility] HISTORY PHYSICALon HISTORY PHYSICAL HNO ID: [id number] Author: OLEGARIO, PATRICIA, PA-C Service: Hospital Medicine Author Type: Physician Engineer Automated Equipment Type: H&P Filed: 11/17/2023 15:53 Note Text: DEPARTMENT OF HOSPITAL MEDICINE HISTORY AND PHYSICAL EXAM SERVICE DATE: 11/17/2023 SERVICE TIME: 3:26 PM Primary Care Physician: No primary care provider on file. NIGHT AND WEEKEND COVERAGE: [employer] COVERAGE: Days: [phone], please contact via [employer] Nights: - 3rd floor: please page Hospitalist night cover [phone] - 4W: please page Hospitalist night cover #[phone] - 5th floor: please page Hospitalist night cover #[phone] - SDU (17:00 - 19:00): Please page #[phone] - SDU (19:00 - 07:00): Please call [facility] at [phone] Subjective CHIEF COMPLAINT: Abdominal pain, nausea, vomiting HPI: This is a 48 year old male with PMH significant for who h/o pancreatitis, depression/anxiety, nicotine and alcohol use who presents with abdominal pain, nausea and vomiting x 3 days. Patient states that he woke up Friday morning with lower abdominal pain that he attributed to a hangover after drinking the night before. He ate lunch and had worsening abdominal pain with nausea and vomiting throughout the rest of the day. The abdominal pain persisted over the next two days bringing him into the ED. The pain is described as a constant cramping across his lower abdomen and into his back without any improvement, even with pain meds in the ED. The pain is currently rated an 8/10. No upper abdominal pain at this time. He is still nauseated but has not vomited. Denies diarrhea, noting last BM was 3 days ago. He has had decreased UOP and feels that he is dehydrated. + chills but denies fever. Denies CP, SOB. Denies dysuria, frequency, urgency. Patient endorses drinking 3-4 times per week but is not a daily drinker. His last drinks were on Friday night. ED workup: Vitals stable Bili 1.9. alk phos 150 Lipase 405 K 3.[address] A/P: Mild acute short segment splenic flexure diverticulitis with trace pericolonic fluid and inflammatory fat stranding in the LEFT upper quadrant. No free air or abscess. Trace LEFT pleural fluid, mild bibasilar atelectasis/scarring, and remote LEFT rib fractures and fixation hardware. No other acute process in the abdomen or pelvis or other significant change from 08/09/2021. PAST MEDICAL HISTORY Diagnosis Date Anxiety state Depression HTN (hypertension) No past surgical history on file. FAMILY HISTORY Problem Relation Age of Onset Hypertension Father No Ocular Disease Father Hypertension Mother No Ocular Disease Mother Social History Tobacco Use Smoking status: Every Day Packs/day: 0.50 Years: 20.00 Additional pack years: 0.00 Total pack years: 10.00 Types: Cigarettes Smokeless tobacco: Never Vaping Use Vaping Use: Former Substances: Nicotine Devices: Pre-filled or refillable cartridge Substance Use Topics Alcohol use: Yes Alcohol/week: 16.0 standard drinks of alcohol Types: 16 Cans of Beer (12oz) per week Drug use: Not Currently Types: Cocaine PRIOR TO ADMISSION MEDICATIONS: (Not in a hospital admission) ALLERGIES No Known Allergies REVIEW OF SYSTEM: GENERAL: +chills No weight loss, malaise or fevers HEENT: Negative for frequent or significant headaches, No changes in hearing or vision, no nose bleeds or other nasal problems NECK: Negative for lumps, goiter, pain and significant neck swelling RESPIRATORY: Negative for cough, hemoptysis, wheezing, COPD, dyspnea or shortness of breath CARDIOVASCULAR: Negative for chest pain, leg swelling, hypertension, CHF or palpitations GI: +abdominal pain, nausea, vomiting No diarrhea : +decreased UOP No history of dysuria, frequency or incontinence MUSCULOSKELETAL: Negative for joint pain or swelling, back pain or muscle pain PSYCH: Negative for sleep disturbance, mood disorder and recent psychosocial stressors NEURO: No history of headaches, syncope, paralysis, seizures or tremors Objective PHYSICAL EXAM: BP 144/99 Pulse 63 Temp (Src) 98.5 (Temporal Artery) Resp 18 Ht 6' 1 (1.85m) Wt 185 lb (83.9kg) SpO2 97% BMI 24.41 kg/(m2). O2 Therapy: Room Air Physical Exam Performed: GENERAL: Alert, no distress, cooperative. Resting in bed, pleasant and conversational. HEAD/SINUSES: No significant findings NECK: No jugulovenous distention, Supple BACK: Back symmetric, Normal curvature, ROM normal, No CVAT. LUNGS: Lungs clear to auscultation, Good diaphragmatic excursion CARDIAC: Normal S1 and S2; no rubs, murmurs, or gallops ABDOMEN: Abdomen soft, diffuse tenderness to palpation throughout, BS normal EXTREMITIES: Extremities normal, no deformities, edema, clubbing or skin discoloration. Good capillary refill. NEURO: Alert and oriented x3. No focal deficits. PULSES: 2+ radial, 2+ dorsalis pedis Lines, Drains, and Airways Line Duration Peripheral 11/17/23 (more content not included)... Normal [facility] Lipase SerPl-cCncon 11-17-19 Lipase [Catalytic activity/Vol] 405 U/L High 16- [facility] Comment on above: Order Comment: Speci men Type: BLOOD SPECIMEN Ordering Facility: [facility] Address: [address] [place] [address] Performed By: #### [id number] #### [facility] CLIA [id number] [place] [address] [place] XR CHEST (2 VW)on 05-12-2023 XR CHEST (2 VW) EXAMINATION: TWO XRAY VIEWS OF THE CHEST 05/12/2023 8:26 am COMPARISON: None. HISTORY: ORDERING SYSTEM PROVIDED HISTORY: Closed fracture of multiple ribs of left side, initial encounter TECHNOLOGIST PROVIDED HISTORY: Reason for exam:->S22.42XA What reading provider will be dictating this exam?->CRC FINDINGS: The lungs are without acute focal process. There is no effusion or pneumothorax. The cardiomediastinal silhouette is without acute process. The osseous structures are without acute process. Hardware in the left lower ribs. IMPRESSION: No acute process. Interpreted by: Ilya Garcia MD Signed by: Ilya Garcia MD 05/12/23 Final result Normal [facility] CBC panel Auto (Bld)on 04-11 Erythrocyte distribution width (RBC) [Ratio] 12.9 % 11.5 - 14.5 % [facility] Hematocrit (Bld) [Volume fraction] 37.2 % Low 41.0 - 52.0 % [facility] Hemoglobin (Bld) [Mass/Vol] 12.7 g/dL Low 13.5 - 17.5 g/dL [facility] Interpretation and review of laboratory results Abnormal [facility] MCH (RBC) [Entitic mass] 36.6 pg High 26.0 - 34.0 pg [facility] MCHC (RBC) [Mass/Vol] 34.1 g/dL 32.0 - 36.0 g/dL [facility] MCV (RBC) [Entitic vol] 107 fL High 80 - 100 fL [facility] Nucleated RBC/100 WBC (Bld) [Ratio] 0.0 % [facility] Platelets (Bld) [#/Vol] 202 10*3/uL [facility] RBC (Bld) [#/Vol] 3.47 10*6/uL Low [facility] WBC (Bld) [#/Vol] 7.3 10*3/uL [facility] Comprehensive metabolic 2000 panelon 04-11-2023 Albumin BCP dye [Mass/Vol] 2.9 g/dL Low 3.4 - 5.0 g/dL [facility] ALP [Catalytic activity/Vol] 127 U/L High 33 - 120 U/L [facility] ALT With P-5'-P [Catalytic activity/Vol] 25 U/L 10 - 52 U/L [facility] Comment on above: Patients treated wit h Sulfasalazine may generate falsely decreased results for ALT. Anion gap [Moles/Vol] 12 mmol/L 10 - 20 mmol/L [facility] AST With P-5'-P [Catalytic activity/Vol] 28 U/L 9 - 39 U/L [facility] Bilirubin [Mass/Vol] 0.7 mg/dL 0.0 - 1 .2 mg/dL [facility] Calcium [Mass/Vol] 8.3 mg/dL Low 8.6 - 10. 3 mg/dL [facility] Chloride [Moles/Vol] 98 mmol/L 98 - 10 7 mmol/L [facility] CO2 [Moles/Vol] 26 mmol/L 21 - 32 mmol/L [facility] Creatinine [Mass/Vol] 0.57 mg/dL 0.50 - 1.30 mg/dL [facility] GFR/1.73 sq M.predicted MDRD (S/P/Bld) [Vol rate/Area] - PINF [facility] Comment on above: Calculations of lilia mated GFR are performed using the 2020 CKD-EPI Study Refit equation without the race variable for the IDMS-Traceable creatinine methods. https://jasn.asnjournals.org/content/early/ASN.7445410 988 Glucose [Mass/Vol] 89 mg/dL 74 - 99 mg/dL [facility] Interpretation and review of laboratory results Abnormal [facility] Potassium [Moles/Vol] 4.0 mmol/L 3.5 - 5.3 mmol/L [facility] Protein [Mass/Vol] 5.4 g/dL Low 6.4 - 8.2 g/dL [facility] Sodium [Moles/Vol] 132 mmol/L Low 136 - 145 mmol/L [facility] Urea nitrogen [Mass/Vol] 10 mg/dL 6 - 23 mg/dL [facility] Magnesiumon 04-11-2023 Magnesium [Mass/Vol] 1.78 mg/dL 1.60 - 2.40 mg/dL [facility] Magnesium [Mass/Vol]on 04-11 Interpretation and review of laboratory results Normal [facility] No Panel Informationon 04-11 [facility] XR Chest Single viewon 04-11 Tiny left apical pneumothorax which is unchanged. Atelectasis/infiltrate in the left base. Multiple left-sided rib fractures. Left-sided subcutaneous emphysema. MACRO: None. Signed by: Miguel A Chin 04/11/2023 7:24 AM Dictation workstation: [id number] [facility]AL Interpreted By: Miguel A Weldon, STUDY: XR CHEST 1 VIEW; 04/11/2023 5:29 am INDICATION: Signs/Symptoms:post op rib plating. COMPARISON: 04/10/2023 ACCESSION NUMBER(S): [id number] ORDERING CLINICIAN: JORGE ALMODOVAR FINDINGS: CHEST/LUNGS: The cardiac and mediastinal silhouettes are unchanged in size and configuration. There is a mild area of atelectasis or infiltrate in the left base, slightly worse when compared to the previous study. Trace left effusion versus pleural thickening is unchanged. Mild atelectasis/scarring in the right base. There is a tiny left apical pneumothorax which is unchanged in size. There is subcutaneous emphysema along left chest wall, similar to the prior study. UPPER ABDOMEN: No remarkable upper abdominal findings. OSSEOUS STRUCTURES: No acute changes. Multiple left-sided rib fractures. [facility] Miguel A Chin MD - 04/11/2023 Interpreted By: Miguel A Chin, STUDY: XR CHEST 1 VIEW; 04/11/2023 5:29 am INDICATION: Signs/Symptoms:post op rib plating. COMPARISON: 04/10/2023 ACCESSION NUMBER(S): [id number] ORDERING CLINICIAN: JORGE ALMODOVAR FINDINGS: CHEST/LUNGS: The cardiac and mediastinal silhouettes are unchanged in size and configuration. There is a mild area of atelectasis or infiltrate in the left base, slightly worse when compared to the previous study. Trace left effusion versus pleural thickening is unchanged. Mild atelectasis/scarring in the right base. There is a tiny left apical pneumothorax which is unchanged in size. There is subcutaneous emphysema along left chest wall, similar to the prior study. UPPER ABDOMEN: No remarkable upper abdominal findings. OSSEOUS STRUCTURES: No acute changes. Multiple left-sided rib fractures. IMPRESSION: Tiny left apical pneumothorax which is unchanged. Atelectasis/infiltrate in the left base. Multiple left-sided rib fractures. Left-sided subcutaneous emphysema. MACRO: None. Signed by: Miguel A Chin 04/11/2023 7:24 AM Dictation workstation: [id number] [facility] Work Phone: [facility] Work Phone: Interval removal of the left-sided chest tube with a tiny left apical pneumothorax. MACRO: None. Signed by: Miguel A Chin 04/11/2023 7:23 AM Dictation workstation: [id number] [facility]ODAL Interpreted By: Miguel A Weldon, STUDY: XR CHEST 1 VIEW; 04/10/2023 11:16 am INDICATION: Signs/Symptoms:r/o PTX s/p CT removal. COMPARISON: 04/10/2023 ACCESSION NUMBER(S): [id number] ORDERING CLINICIAN: BORA BARNEY FINDINGS: CHEST/LUNGS: The cardiac and mediastinal silhouettes are unchanged in size and configuration. There has been interval removal of the left chest tube. There is an area of atelectasis or infiltrate in the left base which is stable. There is a tiny left apical pneumothorax. Minimal atelectasis/scarring in the right base. No new areas of consolidation. No sizable effusion. UPPER ABDOMEN: No remarkable upper abdominal findings. OSSEOUS STRUCTURES: No acute changes. MMODAL Miguel A Chin MD - 04/11/2023 Interpreted By: Miguel A Chin, STUDY: XR CHEST 1 VIEW; 04/10/2023 11:16 am INDICATION: Signs/Symptoms:r/o PTX s/p CT removal. COMPARISON: 04/10/2023 ACCESSION NUMBER(S): [id number] ORDERING CLINICIAN: BORA BARNEY FINDINGS: CHEST/LUNGS: The cardiac and mediastinal silhouettes are unchanged in size and configuration. There has been interval removal of the left chest tube. There is an area of atelectasis or infiltrate in the left base which is stable. There is a tiny left apical pneumothorax. Minimal atelectasis/scarring in the right base. No new areas of consolidation. No sizable effusion. UPPER ABDOMEN: No remarkable upper abdominal findings. OSSEOUS STRUCTURES: No acute changes. IMPRESSION: Interval removal of the left-sided chest tube with a tiny left apical pneumothorax. MACRO: None. Signed by: Miguel A Chin 04/11/2023 7:23 AM Dictation workstation: [id number] [facility] Work Phone: [facility] Work Phone: Radiology Study observation (narrative) [facility] Work Phone: Basic metabolic 2000 panelon 04-10-2023 Anion gap [Moles/Vol] 10 mmol/L 10 - 20 mmol/L [facility] Calcium [Mass/Vol] 8.1 mg/dL Low 8.6 - 10. 3 mg/dL [facility] Chloride [Moles/Vol] 99 mmol/L 98 - 10 7 mmol/L [facility] CO2 [Moles/Vol] 27 mmol/L 21 - 32 mmol/L [facility] Creatinine [Mass/Vol] 0.54 mg/dL 0.50 - 1.30 mg/dL [facility] GFR/1.73 sq M.predicted MDRD (S/P/Bld) [Vol rate/Area] - PINF [facility] Comment on above: Calculations of lilia mated GFR are performed using the 2020 CKD-EPI Study Refit equation without the race variable for the IDMS-Traceable creatinine methods. https://jasn.asnjournals.org/content//ASN.1373773 988 Glucose [Mass/Vol] 113 mg/dL High 74 - 99 mg/dL [facility] Interpretation and review of laboratory results Abnormal [facility] Potassium [Moles/Vol] 3.5 mmol/L 3.5 - 5.3 mmol/L [facility] Sodium [Moles/Vol] 132 mmol/L Low 136 - 145 mmol/L [facility] Urea nitrogen [Mass/Vol] 9 mg/dL 6 - 23 mg/dL [facility] CBC panel Auto (Bld)on 04-10 Erythrocyte distribution width (RBC) [Ratio] 13.1 % 11.5 - 14.5 % [facility] Hematocrit (Bld) [Volume fraction] 37.8 % Low 41.0 - 52.0 % [facility] Hemoglobin (Bld) [Mass/Vol] 13.3 g/dL Low 13.5 - 17.5 g/dL [facility] Interpretation and review of laboratory results Abnormal [facility] MCH (RBC) [Entitic mass] 37.7 pg High 26.0 - 34.0 pg [facility] MCHC (RBC) [Mass/Vol] 35.2 g/dL 32.0 - 36.0 g/dL [facility] MCV (RBC) [Entitic vol] 107 fL High 80 - 100 fL [facility] Nucleated RBC/100 WBC (Bld) [Ratio] 0.0 % [facility] Platelets (Bld) [#/Vol] 148 10*3/uL Low [facility] RBC (Bld) [#/Vol] 3.53 10*6/uL [facility] WBC (Bld) [#/Vol] 8.1 10*3/uL [facility] Magnesiumon 04-10-2023 Magnesium [Mass/Vol] 1.73 mg/dL 1.60 - 2.40 mg/dL [facility] Magnesium [Mass/Vol]on 04-10 Interpretation and review of laboratory results Normal [facility] No Panel Informationon 04-10 [facility] XR Chest Single viewon 04-10 Radiology Study observation (narrative) [facility] Work Phone: Mild atelectasis/infiltrates in the left base. No sizable pneumothorax. Left chest tube remains in place. MACRO: None. Signed by: iMguel A Chin 04/10/2023 9:14 AM Dictation workstation: [id number] MMODAL Interpreted By: Miguel A Weldon, STUDY: XR CHEST 1 VIEW; 04/10/2023 5:47 am INDICATION: Signs/Symptoms:post op rib plating. COMPARISON: 04/09/2023 ACCESSION NUMBER(S): [id number] ORDERING CLINICIAN: TAJ ENCISO FINDINGS: CHEST/LUNGS: The cardiac and mediastinal silhouettes are unchanged in size and configuration. Left-sided chest tube is unchanged in position. No sizable pneumothorax. Atelectasis/infiltrates in the left base. No sizable effusion. Mild atelectasis/scarring in the right mid lung. Persistent left-sided subcutaneous emphysema. UPPER ABDOMEN: No remarkable upper abdominal findings. OSSEOUS STRUCTURES: No acute changes. MMODAL Miguel A Chin MD - 04/10/2023 Interpreted By: Miguel A Chin, STUDY: XR CHEST 1 VIEW; 04/10/2023 5:47 am INDICATION: Signs/Symptoms:post op rib plating. COMPARISON: 04/09/2023 ACCESSION NUMBER(S): [id number] ORDERING CLINICIAN: TAJ ENCISO FINDINGS: CHEST/LUNGS: The cardiac and mediastinal silhouettes are unchanged in size and configuration. Left-sided chest tube is unchanged in position. No sizable pneumothorax. Atelectasis/infiltrates in the left base. No sizable effusion. Mild atelectasis/scarring in the right mid lung. Persistent left-sided subcutaneous emphysema. UPPER ABDOMEN: No remarkable upper abdominal findings. OSSEOUS STRUCTURES: No acute changes. IMPRESSION: Mild atelectasis/infiltrates in the left base. No sizable pneumothorax. Left chest tube remains in place. MACRO: None. Signed by: Miguel A Chin 04/10/2023 9:14 AM Dictation workstation: [id number] [facility] Work Phone: Radiology Study observation (narrative) [facility] Work Phone: XR Chest Single viewOrdered By: Miguel A Chin on 04-10-2023 [facility] Work Phone: Basic metabolic 2000 panelon 04-09-2023 Anion gap [Moles/Vol] 10 mmol/L 10 - 20 mmol/L [facility] Calcium [Mass/Vol] 8.6 mg/dL 8.6 - 10. 3 mg/dL [facility] Chloride [Moles/Vol] 98 mmol/L 98 - 10 7 mmol/L [facility] CO2 [Moles/Vol] 28 mmol/L 21 - 32 mmol/L [facility] Creatinine [Mass/Vol] 0.60 mg/dL 0.50 - 1.30 mg/dL [facility] GFR/1.73 sq M.predicted MDRD (S/P/Bld) [Vol rate/Area] - PINF [facility] Comment on above: Calculations of lilia mated GFR are performed using the 2020 CKD-EPI Study Refit equation without the race variable for the IDMS-Traceable creatinine methods. https://jasn.asnjournals.org/content/early//ASN.0188880 988 Glucose [Mass/Vol] 89 mg/dL 74 - 99 mg/dL [facility] Interpretation and review of laboratory results Abnormal [facility] Potassium [Moles/Vol] 3.8 mmol/L 3.5 - 5.3 mmol/L [facility] Sodium [Moles/Vol] 132 mmol/L Low 136 - 145 mmol/L [facility] Urea nitrogen [Mass/Vol] 11 mg/dL 6 - 23 mg/dL [facility] CBC panel Auto (Bld)on 04-09 Erythrocyte distribution width (RBC) [Ratio] 13.0 % 11.5 - 14.5 % [facility] Hematocrit (Bld) [Volume fraction] 41.9 % 41.0 - 52.0 % [facility] Hemoglobin (Bld) [Mass/Vol] 15.0 g/dL 13.5 - 17.5 g/dL [facility] Interpretation and review of laboratory results Abnormal [facility] MCH (RBC) [Entitic mass] 37.1 pg High 26.0 - 34.0 pg [facility] MCHC (RBC) [Mass/Vol] 35.8 g/dL 32.0 - 36.0 g/dL [facility] MCV (RBC) [Entitic vol] 104 fL High 80 - 100 fL [facility] Nucleated RBC/100 WBC (Bld) [Ratio] 0.0 % [facility] Platelets (Bld) [#/Vol] 156 10*3/uL [facility] RBC (Bld) [#/Vol] 4.04 10*6/uL [facility] [#/Vol] 6.5 10*3/uL [facility] Magnesiumon 04-09-2023 Magnesium [Mass/Vol] 1.76 mg/dL 1.60 - 2.40 mg/dL [facility] No Panel Informationon 04-09 Blood Expiration Date May 06, 2023 23:59 EST [facility] Dispense Status RE [facility] PRODUCT BLOOD TYPE 6200 [facility] PRODUCT CODE [id number] [facility] Unit ABO A [facility] Unit RH Positive [facility] UNIT VOLUME 350 [facility] XM INTEP COMP [facility] Interpretation and review of laboratory results Normal [facility] Phosphoruson 04-09-2023 Phosphate [Mass/Vol] 3.4 mg/dL 2.5 - 4 .9 mg/dL [facility] Comment on above: The performance erlin acteristics of phosphorus testing in heparinized plasma have been validated by the individual laboratory site where testing is performed. Testing on heparinized plasma is not approved by the FDA; however, such approval is not necessary. Prepare RBC: 2 Unitson 04-09 Unit Number [id number] [facility] Unit Number [id number] [facility] SST TOPon 04-09-2023 Extra Tube Hold for add-ons. [facility] Comment on above: Auto resulted. [facility] XR Chest Single viewon 04-09 Left chest tube in p lace. No visible pneumothorax. Streaky bibasilar opacities suggesting atelectasis. Signed by: Ivette Andrade 04/09/2023 6:37 PM Dictation workstation: [id number] [facility] Interpreted By: Ivette Salcido, STUDY: XR CHEST 1 VIEW; 04/09/2023 5:44 pm INDICATION: Signs/Symptoms:New onset SOB post procedure. COMPARISON: 04/09/2023 ACCESSION NUMBER(S): [id number] ORDERING CLINICIAN: JORGE ALMODOVAR FINDINGS: Left-sided chest tube present. No visible pneumothorax. Left chest wall subcutaneous emphysema. Streaky bibasilar opacities suggestive of atelectasis. Normal heart size. No large pleural effusion. MMODAL Ivette Andrade MD - 04/09/2023 Interpreted By: Ivette Andrade, STUDY: XR CHEST 1 VIEW; 04/09/2023 5:44 pm INDICATION: Signs/Symptoms:New onset SOB post procedure. COMPARISON: 04/09/2023 ACCESSION NUMBER(S): [id number] ORDERING CLINICIAN: JORGE ALMODOVAR FINDINGS: Left-sided chest tube present. No visible pneumothorax. Left chest wall subcutaneous emphysema. Streaky bibasilar opacities suggestive of atelectasis. Normal heart size. No large pleural effusion. IMPRESSION: Left chest tube in place. No visible pneumothorax. Streaky bibasilar opacities suggesting atelectasis. Signed by: Ivette Andrade 04/09/2023 6:37 PM Dictation workstation: [id number] [facility] Work Phone: Radiology Study observation (narrative) [facility] Work Phone: 1. Left apical chest tube in place. No pneumothorax. 2. Chronic healed left posterior 5th, 6th, 7th rib fractures with cortical deformities. 3. Additional previously described fractures of the left posterior and posterolateral 9th through 12th ribs are better evaluated on the previous CT chest study. MACRO: None. Signed by: Brittney Holder 04/09/2023 11:49 AM Dictation workstation: [id number] [facility] Interpreted By: Brittney Charles, STUDY: Chest, single AP view. INDICATION: Signs/Symptoms:rib fractures. COMPARISON: Chest radiograph dated 04/08/2023 ACCESSION NUMBER(S): [id number] ORDERING CLINICIAN: SILVIA JUARES FINDINGS: Left apical chest tube in place. The cardiac silhouette size is within normal limits. There is no focal consolidation, edema or pneumothorax. No sizeable pleural effusion. No acute osseous abnormality. Chronic healed left posterior 5th, 6th, 7th rib fractures with cortical deformities. Additional previously described fractures of the left posterior and posterolateral 9th through 12th ribs are better evaluated on the previous CT chest study. [facility] Britt[facility] MD - 04/09/2023 Interpreted By: Brittney Holder, STUDY: Chest, single AP view. INDICATION: Signs/Symptoms:rib fractures. COMPARISON: Chest radiograph dated 04/08/2023 ACCESSION NUMBER(S): [id number] ORDERING CLINICIAN: SILVIA JUARES FINDINGS: Left apical chest tube in place. The cardiac silhouette size is within normal limits. There is no focal consolidation, edema or pneumothorax. No sizeable pleural effusion. No acute osseous abnormality. Chronic healed left posterior 5th, 6th, 7th rib fractures with cortical deformities. Additional previously described fractures of the left posterior and posterolateral 9th through 12th ribs are better evaluated on the previous CT chest study. IMPRESSION: 1. Left apical chest tube in place. No pneumothorax. 2. Chronic healed left posterior 5th, 6th, 7th rib fractures with cortical deformities. 3. Additional previously described fractures of the left posterior and posterolateral 9th through 12th ribs are better evaluated on the previous CT chest study. MACRO: None. Signed by: Brittney Holder 04/09/2023 11:49 AM Dictation workstation: [id number] [facility] Work Phone: [facility] Work Phone: Radiology Study observation (narrative) [facility] Work Phone: XR Chest Single viewOrdered By: Ivette Andrade on 04-09-2023 [facility] Work Phone: Basic metabolic 2000 panelon 04-08-2023 Anion gap [Moles/Vol] 10 mmol/L 10 - 20 mmol/L [facility] Calcium [Mass/Vol] 8.0 mg/dL Low 8.6 - 10. 3 mg/dL [facility] Chloride [Moles/Vol] 98 mmol/L 98 - 10 7 mmol/L [facility] CO2 [Moles/Vol] 30 mmol/L 21 - 32 mmol/L [facility] Creatinine [Mass/Vol] 0.57 mg/dL 0.50 - 1.30 mg/dL [facility] GFR/1.73 sq M.predicted MDRD (S/P/Bld) [Vol rate/Area] - PINF [facility] Comment on above: Calculations of lilia mated GFR are performed using the 2020 CKD-EPI Study Refit equation without the race variable for the IDMS-Traceable creatinine methods. https://jasn.asnjournals.org/content//ASN.1122342 988 Glucose [Mass/Vol] 93 mg/dL 74 - 99 mg/dL [facility] Interpretation and review of laboratory results Abnormal [facility] Potassium [Moles/Vol] 3.8 mmol/L 3.5 - 5.3 mmol/L [facility] Sodium [Moles/Vol] 134 mmol/L Low 136 - 145 mmol/L [facility] Urea nitrogen [Mass/Vol] 11 mg/dL 6 - 23 mg/dL [facility] Blood type and Indirect anti body screen panel (Bld)on 04-08-2023 ABO group Nom (Bld) A [facility] Blood group antibody screen Ql Negative [facility] D Ag Ql (Bld) Positive [facility] CBC panel Auto (Bld)on 04-08 Erythrocyte distribution width (RBC) [Ratio] 12.9 % 11.5 - 14.5 % [facility] Hematocrit (Bld) [Volume fraction] 37.6 % Low 41.0 - 52.0 % [facility] Hemoglobin (Bld) [Mass/Vol] 13.5 g/dL 13.5 - 17.5 g/dL [facility] Interpretation and review of laboratory results Abnormal [facility] MCH (RBC) [Entitic mass] 37.1 pg High 26.0 - 34.0 pg [facility] MCHC (RBC) [Mass/Vol] 35.9 g/dL 32.0 - 36.0 g/dL [facility] MCV (RBC) [Entitic vol] 103 fL High 80 - 100 fL [facility] Nucleated RBC/100 WBC (Bld) [Ratio] 0.0 % [facility] Platelets (Bld) [#/Vol] 135 10*3/uL Low [facility] RBC (Bld) [#/Vol] 3.64 10*6/uL Low [facility] WBC (Bld) [#/Vol] 7.8 10*3/uL [facility] Magnesiumon 04-08-2023 Magnesium [Mass/Vol] 1.79 mg/dL 1.60 - 2.40 mg/dL [facility] No Panel Informationon 04-08 Interpretation and review of laboratory results Normal [facility] Phosphoruson 04-08-2023 Phosphate [Mass/Vol] 2.7 mg/dL 2.5 - 4 .9 mg/dL [facility] Comment on above: The performance erlin acteristics of phosphorus testing in heparinized plasma have been validated by the individual laboratory site where testing is performed. Testing on heparinized plasma is not approved by the FDA; however, such approval is not necessary. SST TOPon 04-08-2023 Extra Tube Hold for add-ons. [facility] Comment on above: Auto resulted. [facility] VERIFY ABO/Rh Group Teston 1 06-08-2022 ABO group Nom (Bld) A [facility] D Ag Ql (Bld) Positive [facility] XR Chest Single viewon 04-08 Increased opacity at the left base. Multiple left-sided rib fractures. MACRO: none Signed by: Ronel Basurto 04/08/2023 11:32 AM Dictation workstation: [id number] [facility]AL Interpreted By: Ronel Hurst, STUDY: XR CHEST 1 VIEW; 04/08/2023 9:58 am INDICATION: Signs/Symptoms:rib fractures. COMPARISON: 04/07/2023; CT chest dated 04/04/2023 ACCESSION NUMBER(S): [id number] ORDERING CLINICIAN: SILVIA JUARES FINDINGS: Heart is normal in size. There appears to be pleural and parenchymal disease at the left base. The mediastinum is unremarkable. There are multiple left rib fractures. Some of the rib fractures are old, some are acute. The patient is slightly scoliotic. COMPARISON OF FINDING: The chest is similar. [facility] Ronel Basurto MD - 04/08/2023 Interpreted By: Ronel Basurto, STUDY: XR CHEST 1 VIEW; 04/08/2023 9:58 am INDICATION: Signs/Symptoms:rib fractures. COMPARISON: 04/07/2023; CT chest dated 04/04/2023 ACCESSION NUMBER(S): [id number] ORDERING CLINICIAN: SILVIA JUARES FINDINGS: Heart is normal in size. There appears to be pleural and parenchymal disease at the left base. The mediastinum is unremarkable. There are multiple left rib fractures. Some of the rib fractures are old, some are acute. The patient is slightly scoliotic. COMPARISON OF FINDING: The chest is similar. IMPRESSION: Increased opacity at the left base. Multiple left-sided rib fractures. MACRO: none Signed by: Ronel Basurto 04/08/2023 11:32 AM Dictation workstation: [id number] [facility] Work Phone: Radiology Study observation (narrative) [facility] Work Phone: XR Chest Single viewOrdered By: Ronel Basurto on 04-08-2023 [facility] Work Phone: Basic metabolic 2000 panelon 04-07-2023 Anion gap [Moles/Vol] 9 mmol/L Low 10 - 20 mmol/L [facility] Calcium [Mass/Vol] 8.1 mg/dL Low 8.6 - 10. 3 mg/dL [facility] Chloride [Moles/Vol] 95 mmol/L Low 98 - 10 7 mmol/L [facility] CO2 [Moles/Vol] 31 mmol/L 21 - 32 mmol/L [facility] Creatinine [Mass/Vol] 0.56 mg/dL 0.50 - 1.30 mg/dL [facility] GFR/1.73 sq M.predicted MDRD (S/P/Bld) [Vol rate/Area] - PINF [facility] Comment on above: Calculations of lilia mated GFR are performed using the 2020 CKD-EPI Study Refit equation without the race variable for the IDMS-Traceable creatinine methods. https://jasn.asnjournals.org/content/early/ASN.2598742 988 Glucose [Mass/Vol] 107 mg/dL High 74 - 99 mg/dL [facility] Interpretation and review of laboratory results Abnormal [facility] Potassium [Moles/Vol] 3.5 mmol/L 3.5 - 5.3 mmol/L [facility] Sodium [Moles/Vol] 131 mmol/L Low 136 - 145 mmol/L [facility] Urea nitrogen [Mass/Vol] 9 mg/dL 6 - 23 mg/dL [facility] CBC panel Auto (Bld)on 04-07 Erythrocyte distribution width (RBC) [Ratio] 12.8 % 11.5 - 14.5 % [facility] Hematocrit (Bld) [Volume fraction] 36.9 % Low 41.0 - 52.0 % [facility] Hemoglobin (Bld) [Mass/Vol] 13.3 g/dL Low 13.5 - 17.5 g/dL [facility] Interpretation and review of laboratory results Abnormal [facility] MCH (RBC) [Entitic mass] 37.2 pg High 26.0 - 34.0 pg [facility] MCHC (RBC) [Mass/Vol] 36.0 g/dL 32.0 - 36.0 g/dL [facility] MCV (RBC) [Entitic vol] 103 fL High 80 - 100 fL [facility] Nucleated RBC/100 WBC (Bld) [Ratio] 0.0 % [facility] Platelets (Bld) [#/Vol] 118 10*3/uL Low [facility] RBC (Bld) [#/Vol] 3.58 10*6/uL [facility] WBC (Bld) [#/Vol] 6.8 10*3/uL [facility] Magnesiumon 04-07-2023 Magnesium [Mass/Vol] 1.80 mg/dL 1.60 - 2.40 mg/dL [facility] No Panel Informationon 04-07 Interpretation and review of laboratory results Normal [facility] Phosphoruson 04-07-2023 Phosphate [Mass/Vol] 2.6 mg/dL 2.5 - 4 .9 mg/dL [facility] Comment on above: The performance erlin acteristics of phosphorus testing in heparinized plasma have been validated by the individual laboratory site where testing is performed. Testing on heparinized plasma is not approved by the FDA; however, such approval is not necessary. XR Chest Single viewon 04-07 1. Partial visualiza tion of multiple left-sided rib deformities representing a combination of nonacute and acute fractures as better seen and described on recent chest CT. No appreciable pneumothorax. 2. Increased opacification of the left base may be due to a combination of consolidation, volume loss and possible small volume pleural effusion. MACRO: None. Signed by: Silvia Sood 04/07/2023 11:27 AM Dictation workstation: [id number] [facility] Interpreted By: Silvia Barlow, STUDY: XR CHEST 1 VIEW; 04/06/2023 10:48 am INDICATION: Signs/Symptoms:rib fractures. COMPARISON: 04/04/2023. ACCESSION NUMBER(S): [id number] ORDERING CLINICIAN: CHRIS GARCIA FINDINGS: CARDIOMEDIASTINAL SILHOUETTE: Borderline size of the cardiac silhouette is stable. LUNGS: There is increased opacification of the left base which may be due to a combination of consolidation, volume loss and possible small volume pleural effusion. No right lung consolidation is seen. No appreciable pneumothorax. ABDOMEN: No remarkable upper abdominal findings. BONES: Multiple left-sided rib deformities are partially visualized representing a combination of nonacute and acute fractures as better seen and described on previous chest CT. [facility] Silvia Sood MD - 04/07/2023 Interpreted By: Silvia Sood, STUDY: XR CHEST 1 VIEW; 04/06/2023 10:48 am INDICATION: Signs/Symptoms:rib fractures. COMPARISON: 04/04/2023. ACCESSION NUMBER(S): [id number] ORDERING CLINICIAN: CHRIS GARCIA FINDINGS: CARDIOMEDIASTINAL SILHOUETTE: Borderline size of the cardiac silhouette is stable. LUNGS: There is increased opacification of the left base which may be due to a combination of consolidation, volume loss and possible small volume pleural effusion. No right lung consolidation is seen. No appreciable pneumothorax. ABDOMEN: No remarkable upper abdominal findings. BONES: Multiple left-sided rib deformities are partially visualized representing a combination of nonacute and acute fractures as better seen and described on previous chest CT. IMPRESSION: 1. Partial visualization of multiple left-sided rib deformities representing a combination of nonacute and acute fractures as better seen and described on recent chest CT. No appreciable pneumothorax. 2. Increased opacification of the left base may be due to a combination of consolidation, volume loss and possible small volume pleural effusion. MACRO: None. Signed by: Silvia Sood 04/07/2023 11:27 AM Dictation workstation: [id number] [facility] Work Phone: 1. Combination of mu ltiple left nonacute nonacute rib fracture deformities again partially visualized. 2. Left basilar opacification most confluent in the retrocardiac region again seen and may be due to a combination of atelectasis and or infiltrates. 3. No appreciable pneumothorax. MACRO: None. Signed by: Silvia Sood 04/07/2023 11:25 AM Dictation workstation: [id number] [facility] Interpreted By: Silvia Barlow, STUDY: XR CHEST 1 VIEW; 04/07/2023 5:37 am INDICATION: Signs/Symptoms:rib fractures. COMPARISON: 04/06/2023. ACCESSION NUMBER(S): [id number] ORDERING CLINICIAN: CHRIS GARCIA FINDINGS: CARDIOMEDIASTINAL SILHOUETTE: Borderline size of the cardiac silhouette is stable. LUNGS: Left basilar opacification most confluent in the retrocardiac region may represent atelectasis and/or infiltrate. Small left effusion not excluded. Right midlung mild linear atelectasis or scarring is present. No appreciable pneumothorax. ABDOMEN: No remarkable upper abdominal findings. BONES: Combination of multiple left nonacute and acute rib fracture deformities are partially visualized as better seen and described on previous CT. [facility] Silvia Sood MD - 04/07/2023 Interpreted By: Silvia Sood, STUDY: XR CHEST 1 VIEW; 04/07/2023 5:37 am INDICATION: Signs/Symptoms:rib fractures. COMPARISON: 04/06/2023. ACCESSION NUMBER(S): [id number] ORDERING CLINICIAN: CHRIS GARCIA FINDINGS: CARDIOMEDIASTINAL SILHOUETTE: Borderline size of the cardiac silhouette is stable. LUNGS: Left basilar opacification most confluent in the retrocardiac region may represent atelectasis and/or infiltrate. Small left effusion not excluded. Right midlung mild linear atelectasis or scarring is present. No appreciable pneumothorax. ABDOMEN: No remarkable upper abdominal findings. BONES: Combination of multiple left nonacute and acute rib fracture deformities are partially visualized as better seen and described on previous CT. IMPRESSION: 1. Combination of multiple left nonacute nonacute rib fracture deformities again partially visualized. 2. Left basilar opacification most confluent in the retrocardiac region again seen and may be due to a combination of atelectasis and or infiltrates. 3. No appreciable pneumothorax. MACRO: None. Signed by: Silvia Sood 04/07/2023 11:25 AM Dictation workstation: [id number] [facility] Work Phone: [facility] Work Phone: Radiology Study observation (narrative) [facility] Work Phone: XR Chest Single viewOrdered By: Silvia Sood on 04-07-2023 [facility] Work Phone: Basic metabolic 2000 panelon 04-06-2023 Anion gap [Moles/Vol] 12 mmol/L 10 - 20 mmol/L [facility] Calcium [Mass/Vol] 7.9 mg/dL Low 8.6 - 10. 3 mg/dL [facility] Chloride [Moles/Vol] 96 mmol/L Low 98 - 10 7 mmol/L [facility] CO2 [Moles/Vol] 30 mmol/L 21 - 32 mmol/L [facility] Creatinine [Mass/Vol] 0.55 mg/dL 0.50 - 1.30 mg/dL [facility] GFR/1.73 sq M.predicted MDRD (S/P/Bld) [Vol rate/Area] - PINF [facility] Comment on above: Calculations of lilia mated GFR are performed using the 2020 CKD-EPI Study Refit equation without the race variable for the IDMS-Traceable creatinine methods. https://jasn.asnjournals.org/content//ASN.6012173 988 Glucose [Mass/Vol] 84 mg/dL 74 - 99 mg/dL [facility] Potassium [Moles/Vol] 3.5 mmol/L 3.5 - 5.3 mmol/L [facility] Sodium [Moles/Vol] 134 mmol/L Low 136 - 145 mmol/L [facility] Urea nitrogen [Mass/Vol] 8 mg/dL 6 - 23 mg/dL [facility] CBC panel Auto (Bld)on 04-06 Erythrocyte distribution width (RBC) [Ratio] 13.0 % 11.5 - 14.5 % [facility] Hematocrit (Bld) [Volume fraction] 36.6 % Low 41.0 - 52.0 % [facility] Hemoglobin (Bld) [Mass/Vol] 13.1 g/dL Low 13.5 - 17.5 g/dL [facility] Interpretation and review of laboratory results Abnormal [facility] MCH (RBC) [Entitic mass] 37.0 pg High 26.0 - 34.0 pg [facility] MCHC (RBC) [Mass/Vol] 35.8 g/dL 32.0 - 36.0 g/dL [facility] MCV (RBC) [Entitic vol] 103 fL High 80 - 100 fL [facility] Nucleated RBC/100 WBC (Bld) [Ratio] 0.0 % [facility] Platelets (Bld) [#/Vol] 108 10*3/uL Low [facility] RBC (Bld) [#/Vol] 3.54 10*6/uL [facility] WBC (Bld) [#/Vol] 5.6 10*3/uL [facility] Comprehensive metabolic 2000 panelon 04-06-2023 Albumin BCP dye [Mass/Vol] 3.0 g/dL Low 3.4 - 5.0 g/dL [facility] ALP [Catalytic activity/Vol] 134 U/L High 33 - 120 U/L [facility] ALT With P-5'-P [Catalytic activity/Vol] 71 U/L High 10 - 52 U/L [facility] Comment on above: Patients treated wit h Sulfasalazine may generate falsely decreased results for ALT. Anion gap [Moles/Vol] 13 mmol/L 10 - 20 mmol/L [facility] AST With P-5'-P [Catalytic activity/Vol] 132 U/L High 9 - 39 U/L [facility] Bilirubin [Mass/Vol] 4.3 mg/dL High 0.0 - 1 .2 mg/dL [facility] Calcium [Mass/Vol] 8.0 mg/dL Low 8.6 - 10. 3 mg/dL [facility] Chloride [Moles/Vol] 95 mmol/L Low 98 - 10 7 mmol/L [facility] CO2 [Moles/Vol] 29 mmol/L 21 - 32 mmol/L [facility] Creatinine [Mass/Vol] 0.52 mg/dL 0.50 - 1.30 mg/dL [facility] GFR/1.73 sq M.predicted MDRD (S/P/Bld) [Vol rate/Area] - PINF [facility] Comment on above: Calculations of lilia mated GFR are performed using the 2020 CKD-EPI Study Refit equation without the race variable for the IDMS-Traceable creatinine methods. https://jasn.asnjournals.org/content/early/ASN.2647990 988 Calculations of estimated GFR are performed using the 2020 CKD-EPI Study Refit equation without the race variable for the IDMS-Traceable creatinine methods. https://jasn.asnjournals.org/content//ASN.6887753 988 Glucose [Mass/Vol] 82 mg/dL 74 - 99 mg/dL [facility] Interpretation and review of laboratory results Abnormal [facility] Potassium [Moles/Vol] 3.5 mmol/L 3.5 - 5.3 mmol/L [facility] Protein [Mass/Vol] 5.1 g/dL Low 6.4 - 8.2 g/dL [facility] Sodium [Moles/Vol] 133 mmol/L Low 136 - 145 mmol/L [facility] Urea nitrogen [Mass/Vol] 9 mg/dL 6 - 23 mg/dL [facility] Magnesiumon 04-06-2023 Magnesium [Mass/Vol] 1.63 mg/dL 1.60 - 2.40 mg/dL [facility] Magnesium [Mass/Vol]on 04-06 Interpretation and review of laboratory results Normal [facility] No Panel Informationon 04-06 Interpretation and review of laboratory results Abnormal [facility] Phosphoruson 04-06-2023 Phosphate [Mass/Vol] 2.3 mg/dL Low 2.5 - 4 .9 mg/dL [facility] Comment on above: The performance erlin acteristics of phosphorus testing in heparinized plasma have been validated by the individual laboratory site where testing is performed. Testing on heparinized plasma is not approved by the FDA; however, such approval is not necessary. XR Chest Single viewon 04-06 Radiology Study observation (narrative) [facility] Work Phone: Basic metabolic 2000 panelon 04-05-2023 Anion gap [Moles/Vol] 11 mmol/L 10 - 20 mmol/L [facility] Calcium [Mass/Vol] 8.0 mg/dL Low 8.6 - 10. 3 mg/dL [facility] Chloride [Moles/Vol] 96 mmol/L Low 98 - 10 7 mmol/L [facility] CO2 [Moles/Vol] 31 mmol/L 21 - 32 mmol/L [facility] Creatinine [Mass/Vol] 0.56 mg/dL 0.50 - 1.30 mg/dL [facility] GFR/1.73 sq M.predicted MDRD (S/P/Bld) [Vol rate/Area] - PINF [facility] Comment on above: Calculations of lilia mated GFR are performed using the 2020 CKD-EPI Study Refit equation without the race variable for the IDMS-Traceable creatinine methods. https://jasn.asnjournals.org/content//ASN.0395056 988 Glucose [Mass/Vol] 82 mg/dL 74 - 99 mg/dL [facility] Potassium [Moles/Vol] 3.2 mmol/L Low 3.5 - 5.3 mmol/L [facility] Sodium [Moles/Vol] 135 mmol/L Low 136 - 145 mmol/L [facility] Urea nitrogen [Mass/Vol] 6 mg/dL 6 - 23 mg/dL [facility] CBC panel Auto (Bld)on 04-05 Erythrocyte distribution width (RBC) [Ratio] 13.5 % 11.5 - 14.5 % [facility] Hematocrit (Bld) [Volume fraction] 38.3 % Low 41.0 - 52.0 % [facility] Hemoglobin (Bld) [Mass/Vol] 14.0 g/dL 13.5 - 17.5 g/dL [facility] Interpretation and review of laboratory results Abnormal [facility] MCH (RBC) [Entitic mass] 37.3 pg High 26.0 - 34.0 pg [facility] MCHC (RBC) [Mass/Vol] 36.6 g/dL High 32.0 - 36.0 g/dL [facility] MCV (RBC) [Entitic vol] 102 fL High 80 - 100 fL [facility] Nucleated RBC/100 WBC (Bld) [Ratio] 0.0 % [facility] Platelets (Bld) [#/Vol] 132 10*3/uL Low [facility] RBC (Bld) [#/Vol] 3.75 10*6/uL Low [facility] WBC (Bld) [#/Vol] 6.7 10*3/uL [facility] Magnesiumon 04-05-2023 Magnesium [Mass/Vol] 1.92 mg/dL 1.60 - 2.40 mg/dL [facility] Magnesium [Mass/Vol]on 04-05 Interpretation and review of laboratory results Normal [facility] No Panel Informationon 04-05 Interpretation and review of laboratory results Abnormal [facility] PT and aPTT panel Coag (PPP) on 04-05-2023 aPTT Coag (PPP) [Time] 30 s [facility] INR Coag (PPP) [Relative time] 1.1 {INR} 0.9 - 1.1 [facility] Interpretation and review of laboratory results Normal [facility] PT Coag (PPP) [Time] 12.1 s [facility] The APTT is no longe r used for monitoring Unfractionated Heparin Therapy. For monitoring Heparin Therapy, use the Heparin Assay. [facility] Phosphoruson 04-05-2023 Phosphate [Mass/Vol] 2.4 mg/dL Low 2.5 - 4 .9 mg/dL [facility] Comment on above: The performance erlin acteristics of phosphorus testing in heparinized plasma have been validated by the individual laboratory site where testing is performed. Testing on heparinized plasma is not approved by the FDA; however, such approval is not necessary. XR Chest Single viewon 04-05 1. No acute cardiopulmonary process. 2. Redemonstration of acute left posterolateral 9th through 12th rib fractures that are better evaluated on the previous CT chest study. More remote fractures of left posterior 5th through 7th ribs noted as well. MACRO: None. Signed by: Brittney Holder 04/05/2023 9:10 AM Dictation workstation: [id number] [facility] Interpreted By: Brtitney Charles, STUDY: Chest, single AP view. INDICATION: Signs/Symptoms:fu chest x-ray for rib fx. COMPARISON: CT chest 04/04/2023 and chest radiograph 04/04/2023 ACCESSION NUMBER(S): [id number] ORDERING CLINICIAN: CHRIS GARCIA FINDINGS: The cardiac silhouette size is within normal limits. There is no focal consolidation, edema or pneumothorax. No sizeable pleural effusion. No acute osseous abnormality. Redemonstration of subacute left posterolateral 9th through 12th rib fractures that are better evaluated on the previous CT chest study. More remote fractures of left posterior 5th through 7th ribs noted as well. [facility] Brittney Holder MD - 04/05/2023 Interpreted By: Brittney Holder, STUDY: Chest, single AP view. INDICATION: Signs/Symptoms:fu chest x-ray for rib fx. COMPARISON: CT chest 04/04/2023 and chest radiograph 04/04/2023 ACCESSION NUMBER(S): [id number] ORDERING CLINICIAN: CHRIS GARCIA FINDINGS: The cardiac silhouette size is within normal limits. There is no focal consolidation, edema or pneumothorax. No sizeable pleural effusion. No acute osseous abnormality. Redemonstration of subacute left posterolateral 9th through 12th rib fractures that are better evaluated on the previous CT chest study. More remote fractures of left posterior 5th through 7th ribs noted as well. IMPRESSION: 1. No acute cardiopulmonary process. 2. Redemonstration of acute left posterolateral 9th through 12th rib fractures that are better evaluated on the previous CT chest study. More remote fractures of left posterior 5th through 7th ribs noted as well. MACRO: None. Signed by: Brittney Holder 04/05/2023 9:10 AM Dictation workstation: [id number] [facility] Work Phone: XR Chest Single viewOrdered By: Brittney Holder on 04-05-2023 [facility] Work Phone: CBC W Auto Differential pane l (Bld)on 04-04-2023 Basophils (Bld) [#/Vol] 0.06 10*3/uL [facility] Basophils/100 WBC (Bld) 0.7 % 0.0 - 2.0 % [facility] Eosinophils (Bld) [#/Vol] 0.07 10*3/uL [facility] Eosinophils/100 WBC (Bld) 0.8 % 0.0 - 6.0 % [facility] Erythrocyte distribution width (RBC) [Ratio] 13.7 % 11.5 - 14.5 % [facility] Hematocrit (Bld) [Volume fraction] 44.2 % 41.0 - 52.0 % [facility] Hemoglobin (Bld) [Mass/Vol] 16.4 g/dL 13.5 - 17.5 g/dL [facility] Immature granulocytes (Bld) [#/Vol] 0.03 10*3/uL [facility] Immature granulocytes/100 WBC (Bld) 0.4 % 0.0 - 0.9 % [facility] Comment on above: Immature Granulocyte Count (IG) includes promyelocytes, myelocytes and metamyelocytes but does not include bands. Percent differential counts (%) should be interpreted in the context of the absolute cell counts (cells/UL). Interpretation and review of laboratory results Abnormal [facility] Lymphocytes (Bld) [#/Vol] 1.61 10*3/uL [facility] Lymphocytes/100 WBC (Bld) 19.3 % 13.0 - 44.0 % [facility] MCH (RBC) [Entitic mass] 37.4 pg High 26.0 - 34.0 pg [facility] MCHC (RBC) [Mass/Vol] 37.1 g/dL High 32.0 - 36.0 g/dL [facility] MCV (RBC) [Entitic vol] 101 fL High 80 - 100 fL [facility] Monocytes (Bld) [#/Vol] 0.66 10*3/uL [facility] Monocytes/100 WBC (Bld) 7.9 % 2.0 - 10.0 % [facility] Neutrophils (Bld) [#/Vol] 5.92 10*3/uL [facility] Comment on above: Percent differential counts (%) should be interpreted in the context of the absolute cell counts (cells/uL). Neutrophils/100 WBC (Bld) 70.9 % 40.0 - 80.0 % [facility] Nucleated RBC/100 WBC (Bld) [Ratio] 0.0 % [facility] Platelets (Bld) [#/Vol] 136 10*3/uL Low [facility] RBC (Bld) [#/Vol] 4.39 10*6/uL Low [facility] WBC (Bld) [#/Vol] 8.4 10*3/uL [facility] CT Cervical spine WO contras ton 04-04-2023 [id number] low er cervical spondylosis as described above. Mild multilevel bulging disc without significant central canal narrowing. Mild and moderate multilevel neural foraminal narrowing as described above. No sign of acute fracture or subluxation. Signed by: Antoine Veloz 04/04/2023 7:24 AM Dictation workstation: [id number] [facility] Interpreted By: Antoine Veloz, STUDY: CT CERVICAL SPINE WO IV CONTRAST; 04/04/2023 6:55 am INDICATION: Signs/Symptoms:fall. COMPARISON: None. ACCESSION NUMBER(S): [id number] ORDERING CLINICIAN: JOHANNA RIOS TECHNIQUE: Contiguous axial CT sections are performed from the skullbase to the upper thoracic spine and supplemented with coronal and sagittal reformatted images. FINDINGS: The cervical vertebral body alignment is within normal limits. The facet joints align normally. The cervical vertebral body heights are maintained. There is no sign of acute fracture. There is no bone destruction or aggressive periosteal reaction. No lytic or blastic lesion is detected. There is mild cervical spondylosis at C4-5 and mild to moderate cervical spondylosis at C5-6 and C6-7 with disc space narrowing and small marginal osteophytes. There is mild multilevel facet arthrosis and uncovertebral arthrosis. There is mild narrowing of the right neural foramen at C4-5. There is moderate narrowing of the left neural foramina C5-6 and C6-7 and mild narrowing on the right. There is mild bulging disc at C4-5 and C5-6 without significant central canal narrowing. The surrounding soft tissue structures are unremarkable. There is no prevertebral soft tissue swelling or retropharyngeal air. [facility] Matt Veloz MD - 04/04/2023 Interpreted By: Antoine Veloz, STUDY: CT CERVICAL SPINE WO IV CONTRAST; 04/04/2023 6:55 am INDICATION: Signs/Symptoms:fall. COMPARISON: None. ACCESSION NUMBER(S): [id number] ORDERING CLINICIAN: JOHANNA RIOS TECHNIQUE: Contiguous axial CT sections are performed from the skullbase to the upper thoracic spine and supplemented with coronal and sagittal reformatted images. FINDINGS: The cervical vertebral body alignment is within normal limits. The facet joints align normally. The cervical vertebral body heights are maintained. There is no sign of acute fracture. There is no bone destruction or aggressive periosteal reaction. No lytic or blastic lesion is detected. There is mild cervical spondylosis at C4-5 and mild to moderate cervical spondylosis at C5-6 and C6-7 with disc space narrowing and small marginal osteophytes. There is mild multilevel facet arthrosis and uncovertebral arthrosis. There is mild narrowing of the right neural foramen at C4-5. There is moderate narrowing of the left neural foramina C5-6 and C6-7 and mild narrowing on the right. There is mild bulging disc at C4-5 and C5-6 without significant central canal narrowing. The surrounding soft tissue structures are unremarkable. There is no prevertebral soft tissue swelling or retropharyngeal air. IMPRESSION: [id number] lower cervical spondylosis as described above. Mild multilevel bulging disc without significant central canal narrowing. Mild and moderate multilevel neural foraminal narrowing as described above. No sign of acute fracture or subluxation. Signed by: Antoine Veloz 04/04/2023 7:24 AM Dictation workstation: [id number] [facility] Work Phone: [facility] Work Phone: CT Chest and Abdomen and Pel vis W contrast Sylvain 04-04-2023 Fractures of the pos terior and posterolateral left 12th, 11th, 10th, and 9th rib. Trace left hemothorax. There is no sizable pneumothorax. Severe fatty metamorphosis of the liver. Severe discogenic degenerative changes at the lumbosacral junction, described in detail on the CT lumbar spine examination of the same day. The remainder of the chest, abdomen, and pelvis is unremarkable. There is no evidence solid or hollow visceral injury. Signed by: Antoine Veloz 04/04/2023 7:48 AM Dictation workstation: [id number] [facility] Interpreted By: Antoine Veloz, STUDY: CT CHEST ABDOMEN PELVIS W IV CONTRAST; 04/04/2023 6:57 am INDICATION: Signs/Symptoms:left rib pain/ bruising after fall. Patient fell in the shower with left-sided chest pain. COMPARISON: None. ACCESSION NUMBER(S): [id number] ORDERING CLINICIAN: JOHANNA RIOS TECHNIQUE: Contiguous axial CT sections are performed from the thoracic inlet to lesser trochanters following the bolus administration of 90 cc of intravenous Omnipaque 350. FINDINGS: There is mild dependent edema or atelectasis in the lower lobes. There is trace left pleural effusion or hemothorax. There is no pneumothorax. There is a fracture of the left 12th rib which appears minimally displaced with slight cortical offset. There are fractures of the left 11th rib. A posterior fractures nondisplaced. A posterolateral fracture is minimally displaced at the anterior cortex. There is a fracture of the left 10th rib which is mildly displaced posteriorly and posterolaterally. There is a displaced fracture of the posterior left 9th rib with comminution. There is displacement of 1 bone width. There is surrounding edema. The remaining visualized osseous structures are intact. The thoracic aorta is of normal caliber and enhancement. There is no aortic dissection. There is no pathologic lymph node enlargement in the mediastinum or pulmonary ramirez. There is no mediastinal fluid collection or pneumomediastinum. There is no pneumothorax. There is no intraluminal filling defect in the main pulmonary artery, right left pulmonary artery, or lobar arteries. There is diffuse fatty metamorphosis of the liver with some fatty sparing surrounding the gallbladder. No space-occupying mass is detected. The gallbladder is distended though otherwise unremarkable. The spleen, pancreas, and adrenal glands are of normal CT appearance. The kidneys are symmetric in size and enhance symmetrically and uniformly. There is no hydronephrosis or renal calculus. There is no hydroureter or obstructing ureteral calculus. The urinary bladder is not opacified though is well distended and otherwise unremarkable. There is no bladder calculus. The abdominal aorta is of normal and uniform caliber. The aorta enhances normally. There is no periaortic mass or fluid collection. The IVC is unremarkable. There is no bowel distension or infiltration of the bowel mesentery. The appendix has a normal appearance. There is no free air or free fluid collection in the abdomen or pelvis. There is no herniated bowel. There is a tiny fat containing umbilical hernia. There is severe discogenic degenerative changes of the lumbosacral junction which are described in detail on the CT lumbar spine examination of the same day. [facility] Matt Veloz MD - 04/04/2023 Interpreted By: Antoine Veloz, STUDY: CT CHEST ABDOMEN PELVIS W IV CONTRAST; 04/04/2023 6:57 am INDICATION: Signs/Symptoms:left rib pain/ bruising after fall. Patient fell in the shower with left-sided chest pain. COMPARISON: None. ACCESSION NUMBER(S): [id number] ORDERING CLINICIAN: JOHANNA RIOS TECHNIQUE: Contiguous axial CT sections are performed from the thoracic inlet to lesser trochanters following the bolus administration of 90 cc of intravenous Omnipaque 350. FINDINGS: There is mild dependent edema or atelectasis in the lower lobes. There is trace left pleural effusion or hemothorax. There is no pneumothorax. There is a fracture of the left 12th rib which appears minimally displaced with slight cortical offset. There are fractures of the left 11th rib. A posterior fractures nondisplaced. A posterolateral fracture is minimally displaced at the anterior cortex. There is a fracture of the left 10th rib which is mildly displaced posteriorly and posterolaterally. There is a displaced fracture of the posterior left 9th rib with comminution. There is displacement of 1 bone width. There is surrounding edema. The remaining visualized osseous structures are intact. The thoracic aorta is of normal caliber and enhancement. There is no aortic dissection. There is no pathologic lymph node enlargement in the mediastinum or pulmonary ramirez. There is no mediastinal fluid collection or pneumomediastinum. There is no pneumothorax. There is no intraluminal filling defect in the main pulmonary artery, right left pulmonary artery, or lobar arteries. There is diffuse fatty metamorphosis of the liver with some fatty sparing surrounding the gallbladder. No space-occupying mass is detected. The gallbladder is distended though otherwise unremarkable. The spleen, pancreas, and adrenal glands are of normal CT appearance. The kidneys are symmetric in size and enhance symmetrically and uniformly. There is no hydronephrosis or renal calculus. There is no hydroureter or obstructing ureteral calculus. The urinary bladder is not opacified though is well distended and otherwise unremarkable. There is no bladder calculus. The abdominal aorta is of normal and uniform caliber. The aorta enhances normally. There is no periaortic mass or fluid collection. The IVC is unremarkable. There is no bowel distension or infiltration of the bowel mesentery. The appendix has a normal appearance. There is no free air or free fluid collection in the abdomen or pelvis. There is no herniated bowel. There is a tiny fat containing umbilical hernia. There is severe discogenic degenerative changes of the lumbosacral junction which are described in detail on the CT lumbar spine examination of the same day. IMPRESSION: Fractures of the posterior and posterolateral left 12th, 11th, 10th, and 9th rib. Trace left hemothorax. There is no sizable pneumothorax. Severe fatty metamorphosis of the liver. Severe discogenic degenerative changes at the lumbosacral junction, described in detail on the CT lumbar spine examination of the same day. The remainder of the chest, abdomen, and pelvis is unremarkable. There is no evidence solid or hollow visceral injury. Signed by: Antoine Veloz 04/04/2023 7:48 AM Dictation workstation: [id number] [facility] Work Phone: [facility] Work Phone: Radiology Study observation (narrative) [facility] Work Phone: CT Head WO contraston [address] evidence of ac brina intracranial hemorrhage or mass effect. Mucoperiosteal thickening of the ethmoid air cells. Signed by: Antoine Veloz 04/04/2023 7:21 AM Dictation workstation: [id number] [facility] Interpreted By: Antoine Veloz, STUDY: CT HEAD WO IV CONTRAST; 04/04/2023 6:55 am INDICATION: fall. COMPARISON: None. ACCESSION NUMBER(S): [id number] ORDERING CLINICIAN: JOHANNA RIOS TECHNIQUE: Contiguous unenhanced axial CT sections are performed from the skull base to the vertex. FINDINGS: The osseous structures are intact. There is moderate mucoperiosteal thickening of the ethmoid air cells. The cortical sulci and CSF spaces are symmetric in appearance. There is no sign of parenchymal hematoma or dense extra-axial fluid collection. There is no localized edema, mass effect, or shift of the midline. The liriano matter/white matter differentiation is preserved. There is a 2 3 mm basal ganglia calcification on the right. [facility] Matt Veloz MD - 04/04/2023 Interpreted By: Antoine Veloz, STUDY: CT HEAD WO IV CONTRAST; 04/04/2023 6:55 am INDICATION: fall. COMPARISON: None. ACCESSION NUMBER(S): [id number] ORDERING CLINICIAN: JOHANNA RIOS TECHNIQUE: Contiguous unenhanced axial CT sections are performed from the skull base to the vertex. FINDINGS: The osseous structures are intact. There is moderate mucoperiosteal thickening of the ethmoid air cells. The cortical sulci and CSF spaces are symmetric in appearance. There is no sign of parenchymal hematoma or dense extra-axial fluid collection. There is no localized edema, mass effect, or shift of the midline. The liriano matter/white matter differentiation is preserved. There is a 2 3 mm basal ganglia calcification on the right. IMPRESSION: No CT evidence of acute intracranial hemorrhage or mass effect. Mucoperiosteal thickening of the ethmoid air cells. Signed by: Antoine Veloz 04/04/2023 7:21 AM Dictation workstation: [id number] [facility] Work Phone: CT Head WO contrastOrdered B y: Shannon Veloz on 04-04-2023 [facility] Work Phone: CT Lumbar spine WO contrasto n 04-04-2023 Nondisplaced fractur es of the left 11th and 12th rib posteriorly. Severe discogenic degenerative changes of the lumbosacral junction. There is bulging disc and right paracentral disc extrusion. Disc material may contact the right S1 nerve root and should be correlated with any clinical findings of radiculopathy. There is mild central canal narrowing at this level and [id number] bilateral neural foraminal narrowing. Signed by: Antoine Veloz 04/04/2023 7:37 AM Dictation workstation: [id number] [facility] Interpreted By: Antoine Veloz, STUDY: CT LUMBAR SPINE WO IV CONTRAST; 04/04/2023 7:01 am INDICATION: Signs/Symptoms:fall. COMPARISON: None. ACCESSION NUMBER(S): [id number] ORDERING CLINICIAN: JOHANNA RIOS TECHNIQUE: Contiguous axial CT sections are performed through the lumbar spine is supplemented with coronal and sagittal reformatted images. FINDINGS: There is straightening of the lumbar lordosis. There is posterior subluxation of C5 relative to C6 measuring 6 mm. There are severe discogenic degenerative changes at L5-S1 with severe disc space narrowing and endplate sclerosis. There is vacuum phenomenon at this level. There is mild disc space narrowing at L1-2. The remaining lumbar disc space heights are preserved. The lumbar vertebral body heights are maintained. There are nondisplaced fractures of the posterior left 11th and 12th rib. There is no evidence lumbar vertebral body fracture. There is no bone destruction or aggressive periosteal reaction. No lytic or blastic lesion is identified. There are moderate osteoarthritic changes of both sacroiliac joints. The T12-L1 disc space level is unremarkable. The L1-2 disc space level is unremarkable. The L2-3 disc space level demonstrates mild bilateral facet arthrosis. There is mild bulging disc though no significant central canal or neural foraminal stenosis. The L3-4 disc space level demonstrates mild bilateral facet arthrosis and ligamentum flavum hypertrophy. There is mild circumferential bulging disc with mild central canal narrowing. There is mild disc encroachment on the caudal neural foramen bilaterally. The L4-5 disc space level demonstrates mild bilateral facet arthrosis and ligamentum flavum hypertrophy. There is mild bulging disc with flattening of the anterior thecal sac and mild central canal narrowing. There is mild disc encroachment on the caudal neural foramen bilaterally. The L5-S1 disc space level demonstrates mild bilateral facet arthrosis. Is bulging disc and marginal osteophyte asymmetric to the left. There is extruded disc with vacuum phenomena posteriorly to the right of midline. This finding may contact the right S1 nerve root. There is mild central canal narrowing. There is disc and osteophyte encroachment with moderate to severe bilateral neural foraminal narrowing. [facility] Matt Veloz MD - 04/04/2023 Interpreted By: Antoine Veloz, STUDY: CT LUMBAR SPINE WO IV CONTRAST; 04/04/2023 7:01 am INDICATION: Signs/Symptoms:fall. COMPARISON: None. ACCESSION NUMBER(S): [id number] ORDERING CLINICIAN: JOHANNA RIOS TECHNIQUE: Contiguous axial CT sections are performed through the lumbar spine is supplemented with coronal and sagittal reformatted images. FINDINGS: There is straightening of the lumbar lordosis. There is posterior subluxation of C5 relative to C6 measuring 6 mm. There are severe discogenic degenerative changes at L5-S1 with severe disc space narrowing and endplate sclerosis. There is vacuum phenomenon at this level. There is mild disc space narrowing at L1-2. The remaining lumbar disc space heights are preserved. The lumbar vertebral body heights are maintained. There are nondisplaced fractures of the posterior left 11th and 12th rib. There is no evidence lumbar vertebral body fracture. There is no bone destruction or aggressive periosteal reaction. No lytic or blastic lesion is identified. There are moderate osteoarthritic changes of both sacroiliac joints. The T12-L1 disc space level is unremarkable. The L1-2 disc space level is unremarkable. The L2-3 disc space level demonstrates mild bilateral facet arthrosis. There is mild bulging disc though no significant central canal or neural foraminal stenosis. The L3-4 disc space level demonstrates mild bilateral facet arthrosis and ligamentum flavum hypertrophy. There is mild circumferential bulging disc with mild central canal narrowing. There is mild disc encroachment on the caudal neural foramen bilaterally. The L4-5 disc space level demonstrates mild bilateral facet arthrosis and ligamentum flavum hypertrophy. There is mild bulging disc with flattening of the anterior thecal sac and mild central canal narrowing. There is mild disc encroachment on the caudal neural foramen bilaterally. The L5-S1 disc space level demonstrates mild bilateral facet arthrosis. Is bulging disc and marginal osteophyte asymmetric to the left. There is extruded disc with vacuum phenomena posteriorly to the right of midline. This finding may contact the right S1 nerve root. There is mild central canal narrowing. There is disc and osteophyte encroachment with moderate to severe bilateral neural foraminal narrowing. IMPRESSION: Nondisplaced fractures of the left 11th and 12th rib posteriorly. Severe discogenic degenerative changes of the lumbosacral junction. There is bulging disc and right paracentral disc extrusion. Disc material may contact the right S1 nerve root and should be correlated with any clinical findings of radiculopathy. There is mild central canal narrowing at this level and [id number] bilateral neural foraminal narrowing. Signed by: Antoine Veloz 04/04/2023 7:37 AM Dictation workstation: [id number] [facility] Work Phone: [facility] Work Phone: CT Thoracic spine WO contras ton 04-04-2023 Nondisplaced fractur es of the posterior 12th, 11th, 10th rib. Ribs are incompletely visualized with this field of view. Trace left pleural effusion or hemothorax. No sign of thoracic vertebral body fracture or malalignment. No CT evidence of central canal stenosis. Signed by: Antoine Veloz 04/04/2023 7:41 AM Dictation workstation: [id number] [facility] Interpreted By: Antoine Veloz, STUDY: CT THORACIC SPINE WO IV CONTRAST; 04/04/2023 7:01 am INDICATION: Signs/Symptoms:fall. COMPARISON: None. ACCESSION NUMBER(S): [id number] ORDERING CLINICIAN: JOHANNA RIOS TECHNIQUE: Contiguous axial CT sections are performed through the thoracic spine and supplemented with coronal and sagittal reformatted images. FINDINGS: There is slight levoconvexity of the upper thoracic spine. The thoracic vertebral body alignment is otherwise within normal limits. The facet joints align normally. There are nondisplaced fractures of the posterior left 12th, 11th, and 10th rib. The ribs are incompletely visualized with this field of view. There is trace pleural fluid posteriorly on the left. The thoracic vertebral body heights are maintained. There are small Schmorl's node deformity at the inferior endplates T11 and T10 to the left of midline. There is otherwise no sign of thoracic vertebral body fracture. There is no bone destruction or aggressive periosteal reaction. No lytic or blastic lesion is detected. There is no significant central canal stenosis. The spinal cord is poorly characterized with CT. [facility] Matt Veloz MD - 04/04/2023 Interpreted By: Antoine Veloz, STUDY: CT THORACIC SPINE WO IV CONTRAST; 04/04/2023 7:01 am INDICATION: Signs/Symptoms:fall. COMPARISON: None. ACCESSION NUMBER(S): [id number] ORDERING CLINICIAN: JOHANNA RIOS TECHNIQUE: Contiguous axial CT sections are performed through the thoracic spine and supplemented with coronal and sagittal reformatted images. FINDINGS: There is slight levoconvexity of the upper thoracic spine. The thoracic vertebral body alignment is otherwise within normal limits. The facet joints align normally. There are nondisplaced fractures of the posterior left 12th, 11th, and 10th rib. The ribs are incompletely visualized with this field of view. There is trace pleural fluid posteriorly on the left. The thoracic vertebral body heights are maintained. There are small Schmorl's node deformity at the inferior endplates T11 and T10 to the left of midline. There is otherwise no sign of thoracic vertebral body fracture. There is no bone destruction or aggressive periosteal reaction. No lytic or blastic lesion is detected. There is no significant central canal stenosis. The spinal cord is poorly characterized with CT. IMPRESSION: Nondisplaced fractures of the posterior 12th, 11th, 10th rib. Ribs are incompletely visualized with this field of view. Trace left pleural effusion or hemothorax. No sign of thoracic vertebral body fracture or malalignment. No CT evidence of central canal stenosis. Signed by: Antoine Veloz 04/04/2023 7:41 AM Dictation workstation: [id number] [facility] Work Phone: [facility] Work Phone: Comprehensive metabolic 2000 panelon 04-04-2023 Albumin BCP dye [Mass/Vol] 3.6 g/dL 3.4 - 5.0 g/dL [facility] ALP [Catalytic activity/Vol] 139 U/L High 33 - 120 U/L [facility] ALT With P-5'-P [Catalytic activity/Vol] 113 U/L High 10 - 52 U/L [facility] Comment on above: Patients treated wit h Sulfasalazine may generate falsely decreased results for ALT. Anion gap [Moles/Vol] 15 mmol/L 10 - 20 mmol/L [facility] AST With P-5'-P [Catalytic activity/Vol] 207 U/L High 9 - 39 U/L [facility] Bilirubin [Mass/Vol] 1.1 mg/dL 0.0 - 1 .2 mg/dL [facility] Calcium [Mass/Vol] 8.2 mg/dL Low 8.6 - 10. 3 mg/dL [facility] Chloride [Moles/Vol] 101 mmol/L 98 - 10 7 mmol/L [facility] CO2 [Moles/Vol] 29 mmol/L 21 - 32 mmol/L [facility] Creatinine [Mass/Vol] 0.55 mg/dL 0.50 - 1.30 mg/dL [facility] GFR/1.73 sq M.predicted MDRD (S/P/Bld) [Vol rate/Area] - PINF [facility] Comment on above: Calculations of lilia mated GFR are performed using the 2020 CKD-EPI Study Refit equation without the race variable for the IDMS-Traceable creatinine methods. https://jasn.asnjournals.org/content//ASN.3083719 988 Glucose [Mass/Vol] 112 mg/dL High 74 - 99 mg/dL [facility] Interpretation and review of laboratory results Abnormal [facility] Potassium [Moles/Vol] 2.7 mmol/L Critically low 3.5 - 5.3 mmol/L [facility] Protein [Mass/Vol] 6.1 g/dL Low 6.4 - 8.2 g/dL [facility] Sodium [Moles/Vol] 142 mmol/L 136 - 145 mmol/L [facility] Urea nitrogen [Mass/Vol] 6 mg/dL 6 - 23 mg/dL [facility] Drug Screen, Urineon 11-03-2 023 Amphetamines Screen Ql (U) Negative Presumptive Negative [facility] Comment on above: CUTOFF LEVEL: 500 NG /ML Cross-reactivity has been reported with high concentrations of the following drugs: buproprion, chloroquine, chlorpromazine, ephedrine, mephentermine, fenfluramine, phentermine, phenylpropanolamine, pseudoephedrine, and propranolol. Barbiturates Screen Ql (U) Negative Presumptive Negative [facility] Comment on above: CUTOFF LEVEL: 200 NG /ML Benzodiazepines Ql (U) Negative Presumptive Negative [facility] Comment on above: CUTOFF LEVEL: 200 NG /ML Benzoylecgonine Screen Ql (U) Negative Presumptive Negative [facility] Comment on above: CUTOFF LEVEL: 150 NG /ML Cannabinoids Screen Ql (U) Negative Presumptive Negative [facility] Comment on above: CUTOFF LEVEL: 50 NG/ ML fentaNYL+Norfentanyl Screen Ql (U) Positive Abnormal Presumptive Negative [facility] Comment on above: CUTOFF LEVEL: 5 NG/M L Interpretation and review of laboratory results Abnormal [facility] Opiates Screen Ql (U) Positive Abnormal Presumptive Negative [facility] Comment on above: CUTOFF LEVEL: 300 NG /ML The opiate screen does not detect fentanyl, meperidine, or tramadol. Oxycodone is not consistently detected (refer to Oxycodone Screen, Urine result). oxyCODONE+oxyMORphon e Screen Ql (U) Negative Presumptive Negative [facility] Comment on above: CUTOFF LEVEL: 100 NG /ML This test will accurately detect both oxycodone and oxymorphone. Phencyclidine Ql (U) Negative Presump tive Negative [facility] Comment on above: CUTOFF LEVEL: 25 NG/ ML Cross-reactivity has been reported with dextromethorphan. Drug screen results are presumptive and should not be used to assess compliance with prescribed medication. Contact the performing [facility] laboratory to add-on definitive confirmatory testing if clinically indicated. Toxicology screening results are reported qualitatively. The concentration must be greater than or equal to the cutoff to be reported as positive. The concentration at which the screening test can detect an individual drug or metabolite varies. The absence of expected drug(s) and/or drug metabolite(s) may indicate non-compliance, inappropriate timing of specimen collection relative to drug administration, poor drug absorption, diluted/adulterated urine, or limitations of testing. For medical purposes only; not valid for forensic use. Interpretive questions should be directed to the laboratory medical directors. [facility] Ethanolon 04-04-2023 Ethanol [Mass/Vol] 204 mg/dL High NINF - 10 mg/dL [facility] Comment on above: For medical use only . Ethanol [Mass/Vol]on 023 Interpretation and review of laboratory results Abnormal [facility] Extra Urine Liriano Tubeon Extra Tube Hold for add-ons. [facility] Comment on above: Auto resulted. [facility] Lipaseon 04-04-2023 Lipase [Catalytic activity/Vol] 205 U/L High 9 - 82 U/L [facility] Lipase [Catalytic activity/V ol]on 04-04-2023 Interpretation and review of laboratory results Abnormal [facility] Venipuncture immedia tely after or during the administration of Metamizole may lead to falsely low results. Testing should be performed immediately prior to Metamizole dosing. [facility] Magnesiumon 04-04-2023 Magnesium [Mass/Vol] 1.56 mg/dL Low 1.60 - 2.40 mg/dL [facility] Magnesium [Mass/Vol] 1.72 mg/dL 1.60 - 2.40 mg/dL [facility] Magnesium [Mass/Vol]on 04-04 Interpretation and review of laboratory results Abnormal [facility] Interpretation and review of laboratory results Normal [facility] No Panel Informationon 04-04 Radiology Study observation (narrative) [facility] Work Phone: Radiology Study observation (narrative) [facility] Work Phone: SST TOPon 04-04-2023 Extra Tube Hold for add-ons. [facility] Comment on above: Auto resulted. [facility] Urinalysis complete W Reflex Culture panel (U)on 04-04-2023 Appearance (U) Clear Clear [facility] Bilirubin (U) [Mass/Vol] Negative NEGATIVE [facility] Color (U) Geetha Abnormal Straw, Yellow [facility] [facility] Glucose Auto test strip (U) [Mass/Vol] Negative NEGATIVE mg/dL [facility] Interpretation and review of laboratory results Abnormal [facility] Ketones (U) [Mass/Vol] Negative NEGATIVE mg/dL [facility] Leukocyte esterase Auto test strip Ql (U) Negative NEGATIVE [facility] Nitrite Auto test strip Ql (U) Negative NEGATIVE [facility] pH (U) 6.0 [pH] 5.0, 5.5, 6.0, 6.5, 7.0, 7.5, 8.0 [facility] Protein (U) [Mass/Vol] Negative NEGATIVE mg/dL [facility] RBC (U) [#/Vol] Negative NEGATIVE [facility] Specific gravity (U) [Rel density] 1.056 Abnormal 1.005 - 1.035 [facility] Urobilinogen (U) [Mass/Vol] mg/dL NINF - 2.0 mg/dL [facility] XR Chest Single viewon 04-04 Radiology Study observation (narrative) [facility] Work Phone: No radiographic evid ence of acute cardiopulmonary pathology. MACRO: None. Signed by: Sadi Figueroa 04/04/2023 4:56 AM Dictation workstation: [id number] [facility] Interpreted By: Sadi Figueroa, STUDY: XR CHEST 1 VIEW; 04/04/2023 4:51 am INDICATION: Signs/Symptoms:fall. COMPARISON: Chest radiograph 12/01/2017 ACCESSION NUMBER(S): [id number] ORDERING CLINICIAN: JOHANNA RIOS FINDINGS: CARDIOMEDIASTINAL SILHOUETTE: Cardiomediastinal silhouette is normal in size and configuration. LUNGS: No pulmonary consolidation, pleural effusion or pneumothorax. ABDOMEN: No remarkable upper abdominal findings. BONES: No acute osseous abnormality. Remote left-sided rib fractures. [facility] Sadi Figueroa MD - 04/04/2023 Interpreted By: Sadi Figueroa, STUDY: XR CHEST 1 VIEW; 04/04/2023 4:51 am INDICATION: Signs/Symptoms:fall. COMPARISON: Chest radiograph 12/01/2017 ACCESSION NUMBER(S): [id number] ORDERING CLINICIAN: JOHANNA RIOS FINDINGS: CARDIOMEDIASTINAL SILHOUETTE: Cardiomediastinal silhouette is normal in size and configuration. LUNGS: No pulmonary consolidation, pleural effusion or pneumothorax. ABDOMEN: No remarkable upper abdominal findings. BONES: No acute osseous abnormality. Remote left-sided rib fractures. IMPRESSION: No radiographic evidence of acute cardiopulmonary pathology. MACRO: None. Signed by: Sadi Figueroa 04/04/2023 4:56 AM Dictation workstation: [id number] [facility] Work Phone: Radiology Study observation (narrative) [facility] Work Phone: XR Chest Single viewOrdered By: Sadi Figueroa on 04-04-2023 [facility] Work Phone: [facility] FORD PHELAN ([id number]) 1975 M Date Time Provider Department 11/06/22 LILLIANA KATE OPHTST During your visit today, we recorded the following information about you: Lilliana Kate DO 11/06/2022 6:41 AM Signed His genetic testing was negative. Refrain from drinking and continue to take B vitamins Jerrica Adrian 11/06/2022 10:39 AM Signed Contacted the patient and relayed the below message. Patient understands and has no other questions or concerns at this time. Allergies As of Date: 11/06/2022 (No Known Allergies) Date Reviewed: 08/15/2022 Reviewed by: Tierra Galindo MA - Fully Assessed Reason for Visit: Results [95] Prescriptions as of 11/06/2022 - clonazePAM (KLONOPIN) 0.5 mg tablet Take 0.5 mg by mouth twice daily as needed. - lisinopril (ZESTRIL, PRINIVIL) 20 mg tablet Take 20 mg by mouth once daily. - thiamine (VITAMIN B1) 100 mg tablet Take 100 mg by mouth once daily. - hydroCHLOROthiazide (HYDRODIURIL, ESIDRIX) 12.5 mg capsule Take 12.5 mg by mouth. - albuterol HFA (PROVENTIL HFA, VENTOLIN HFA) 90 mcg/actuation inhaler Inhale 2 Puffs as instructed every 4 hours as needed. - sertraline (ZOLOFT) 50 mg tablet Take 1 tablet by mouth once daily. - thiamine (VITAMIN B1) 100 mg tablet 1 tablet by ORAL/FEEDING TUBE route three times daily for 260 doses. - ondansetron (ZOFRAN) 4 mg tablet Take 4 mg by mouth every 8 hours as needed for nausea/vomiting (up to 2 doses per day). - dicyclomine (BENTYL) 20 mg tablet Take 20 mg by mouth every 6 hours as needed. Problem List As Of Date 11/06/2022 Noted Resolved Pancreatitis [K85.90] 08/09/2021 Depression [F32.A] 08/09/2021 Dehydration [E86.0] 08/09/2021 08/13/2021 Epigastric abdominal pain [R10.13] 08/09/2021 Elevated liver enzymes [R74.8] 08/09/2021 Uncomplicated alcohol abuse [F10.10] 08/09/2021 Nausea [R11.0] 08/09/2021 08/13/2021 Hypokalemia [E87.6] 08/09/2021 08/13/2021 Nicotine use disorder, F17.2 [F17.200] 08/10/2021 Hepatic steatosis [K76.0] 08/10/2021 Agitation [R45.1] 08/11/2021 08/13/2021 Hyponatremia [E87.1] 08/13/2021 08/13/2021 Alcohol withdrawal (HCC) [F10.939] 08/13/2021 08/13/2021 Encounter Status:Closed by LILLIANA KATE on 11/06/[address] 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 I've ordered an MRI and genetic testing for Katlyn's hereditary optic neuropathy. Bruna Capellan from genetics should be calling him. Jerrica Adrian 08/19/2022 2:35 PM Signed Contacted the patient and left a message to contact the office. Jerrica Adrian 08/20/2022 9:21 AM Signed Patient called back stating he has already had the testing with Jen and has had an MRI with is PCP at . Asked him to get the results for you to review. Jerrica Adrian 08/20/2022 9:28 AM Signed Lilliana Kate DO You 3 minutes ago (9:23 AM) OK Allergies As of Date: 08/16/2022 (No Known Allergies) Date Reviewed: 08/15/2022 Reviewed by: Tierra Galindo MA - Fully Assessed Reason for Visit: Results [95] Prescriptions as of 08/20/2022 - clonazePAM (KLONOPIN) 0.5 mg tablet Take 0.5 mg by mouth twice daily as needed. - lisinopril (ZESTRIL, PRINIVIL) 20 mg tablet Take 20 mg by mouth once daily. - thiamine (VITAMIN B1) 100 mg tablet Take 100 mg by mouth once daily. - hydroCHLOROthiazide (HYDRODIURIL, ESIDRIX) 12.5 mg capsule Take 12.5 mg by mouth. - albuterol HFA (PROVENTIL HFA, VENTOLIN HFA) 90 mcg/actuation inhaler Inhale 2 Puffs as instructed every 4 hours as needed. - sertraline (ZOLOFT) 50 mg tablet Take 1 tablet by mouth once daily. - thiamine (VITAMIN B1) 100 mg tablet 1 tablet by ORAL/FEEDING TUBE route three times daily for 260 doses. - ondansetron (ZOFRAN) 4 mg tablet Take 4 mg by mouth every 8 hours as needed for nausea/vomiting (up to 2 doses per day). - dicyclomine (BENTYL) 20 mg tablet Take 20 mg by mouth every 6 hours as needed. Problem List As Of Date 08/16/2022 Noted Resolved Pancreatitis [K85.90] 08/09/2021 Depression [F32.A] 08/09/2021 Dehydration [E86.0] 08/09/2021 08/13/2021 Epigastric abdominal pain [R10.13] 08/09/2021 Elevated liver enzymes [R74.8] 08/09/2021 Uncomplicated alcohol abuse [F10.10] 08/09/2021 Nausea [R11.0] 08/09/2021 08/13/2021 Hypokalemia [E87.6] 08/09/2021 08/13/2021 Nicotine use disorder, F17.2 [F17.200] 08/10/2021 Hepatic steatosis [K76.0] 08/10/2021 Agitation [R45.1] 08/11/2021 08/13/2021 Hyponatremia [E87.1] 08/13/2021 08/13/2021 Alcohol withdrawal (HCC) [F10.939] 08/13/2021 08/13/2021 Encounter Status:Closed by LILLIANA KATE on 08/16/22 [facility] CNOVSPon 08-15-2022 [facility] Visit (SP) Office (H EMML) -- FORD PHELAN ([id number]) 1975 M Date Time Provider Department 08/15/22 11:00 AM DINO LINDSAY During your visit today, we recorded the following information about you: Temperature Pulse Respiration Blood pressure 98.4 degrees 99/minute 14/minute 110/78 Weight Height 79 kg 1.841 m Dino Lindsay MD 08/15/2022 1:16 PM Signed DATE OF VISIT: 08/15/22 REASON FOR CONSULTATION: Elevated homocysteine HPI: The patient is a pleasant 47 year old white gentleman who presents at the request of Dr. Kojo Kate (opthamology) for evaluation of an elevation in homocysteine. 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 Lab analysis discovered an elevated homocysteine (without vitamin B12 deficiency). Ford is worried about his vision, but denies fever/shaking chills, chest pain, SOB (incl with exertion), new lumps/bumps, bleeding (incl BRBPR, coughing up blood, black tarry BM's, blood in the urine, etc), early satiety, leg pain/swelling, unintentional weight loss or any other major problems. PMHx: EtOHism; NOA; HTN; h/o depression; h/o polysubstance drug abuse; h/o EtOHic pancreatitis. PSHx: None. MEDICATIONS/ALLERGIES: Reviewed with changes noted on the EPIC record. Soc Hx: The patient is single and lives in [place]. He smokes, drinks EtOH excessively on weekends (but stopped during the week and continues to try to cut down) and uses illegal drugs. Fam Hx: No known first degree realtives with malignancy or clots. REVIEW OF SYSTEMS GENERAL: No weight loss, fevers, malaise. HEENT: + visual loss. Negative for frequent/significant headaches, changes in hearing, nose bleeds/other nasal problems. RESPIRATORY: Negative for cough, wheezing, shortness of breath. CARDIOVASCULAR: Negative for chest pain, leg swelling, palpitations. GI: Negative for abdominal discomfort, blood in stools/black stools, change in bowel habits. : Negative for dysuria, frequency, incontinence. MUSCULOSKELETAL: Negative for joint pain or swelling, back pain, muscle pain. SKIN: Negative for lesions, itching, rash. HEMATOLOGY/LYMPHOLOGY: Negative for prolonged bleeding, bruising easily, swollen nodes. NEURO: Negative for numbness/tingling of fingers/toes. No seizures. The remainder of the review of systems was reviewed and is negative. PHYSICAL EXAMINATION: General appearance: Well appearing, in no acute distress, alert. Skin: Color, texture, turgor normal. No rashes, lesions. Head: Normal. Eyes: Anicteric sclera. Pupils are equally round and reactive to light. Oropharynx: Lips, mucosa, tongue normal. Oropharynx normal. Neck: Supple, no adenopathy; thyroid symmetric, normal size. Lungs: Clear to auscultation. No wheezing, rhonchi. Heart: RRR without murmur, gallop, rubs. No ectopy. Abdomen: Soft, non-tender. Bowel sounds normal. No masses, organomegaly. Extremities: No edema, skin discoloration. Good capillary refill. Musculoskeletal: No pain to palpation of back, adequate flexion and extension. Muscular strength intact and fairly symmetrical. Heme: No appreciable JOVAN in supraclavicular, cervical, axillary or inguinal regions bilaterally. Neuro: Gait normal. Reflexes symmetric. Sensation grossly intact. Labs: Component Latest Ref Rng AND Units 07/25/2022 Protein, Total 6.3 - 8.0 g/dL 6.9 Albumin 3.9 - 4.9 g/dL 4.4 Calcium 8.5 - 10.2 mg/dL 9.7 Bilirubin, Total 0.2 - 1.3 mg/dL 0.4 Alkaline Phosphatase 38 - 113 U/L 115 (H) AST 14 - 40 U/L 57 (H) ALT 10 - 54 U/L 49 Glucose 74 - 99 mg/dL 121 (H) BUN 9 - 24 mg/dL 9 Creatinine 0.73 - 1.22 mg/dL 0.66 (L) Sodium 136 - 144 mmol/L 138 Potassium 3.7 - 5.1 mmol/L 4.3 Chloride 97 - 105 mmol/L 106 (H) CO2 22 - 30 mmol/L 19 (L) Anion Gap 9 - 18 mmol/L 13 eGFR >=60 mL/min/1.73mA? 117 WBC 3.70 - 11.00 k/uL 8.23 RBC 4.20 - 6.00 m/uL 5.01 Hemoglobin 13.0 - 17.0 g/dL 17.8 (H) Hematocrit 39.0 - 51.0 % 51.3 (H) MCV 80.0 - 100.0 fL 102.4 (H) MCH 26.0 - 34.0 pg 35.5 (H) MCHC 30.5 - 36.0 g/dL 34.7 RDW-CV 11.5 - 15.0 % 12.4 Platelet Count 150 - 400 k/uL 187 MPV 9.0 - 12.7 fL 10.5 Absolute nRBC <0.01 k/uL <0.01 Syphilis Screen Result Nonreactive Nonreactive Syphilis Interpretation Cannot exclude recent Treponemal infection if specimen collected within 7-10 days after appearance of suspect lesions or 2-3 weeks after an exposure. Clinical correlation is required. Vitamin B12 232 - 1,245 pg/mL 345 MMA 79 - 376 nmol/L 267 NMO Aquaporin 4 IgG <1:10 <1:10 MOG-IgG1 FACS Negative Negative Homocysteine, Serum <15.1 umol/L 45.4 (H) Assessment/plan: Patient is a pleasant 47 year old white gentleman with: Elevated homocysteine level without vitamin deficiency nor clinical suggestion of homocystinuria. We have no clear medical evidence that this is directly linked with vascular RF or hyperc (more content not included)... Normal [facility] 08-06-2022 [facility] Telephone (OPHTST) -- FORD PHELAN ([id number]) 1975 M Date Time Provider Department 08/06/22 LILLIANA KATE OPHTST During your visit today, we recorded the following information about you: Lilliana Kate DO 08/06/2022 7:36 AM Signed His homocysteine level was elevated and I'm not sure why so I want him to see Dr Zhen Hernandez of hematology to see if it's related to his visual loss. Please make that appt. Jerrica Adrian 08/06/2022 9:14 AM Signed Contacted the patient and relayed the below message. Patient understands and was given the number to call and schedule. No other questions or concerns at this time. Allergies As of Date: 08/06/2022 (No Known Allergies) Date Reviewed: 07/25/2022 Reviewed by: Lilliana Kate DO - Fully Assessed Reason for Visit: Results [95] Prescriptions as of 08/06/2022 - clonazePAM (KLONOPIN) 0.5 mg tablet Take 0.5 mg by mouth twice daily as needed. - lisinopril (ZESTRIL, PRINIVIL) 20 mg tablet Take 20 mg by mouth once daily. - thiamine (VITAMIN B1) 100 mg tablet Take 100 mg by mouth once daily. - hydroCHLOROthiazide (HYDRODIURIL, ESIDRIX) 12.5 mg capsule Take 12.5 mg by mouth. - albuterol HFA (PROVENTIL HFA, VENTOLIN HFA) 90 mcg/actuation inhaler Inhale 2 Puffs as instructed every 4 hours as needed. - sertraline (ZOLOFT) 50 mg tablet Take 1 tablet by mouth once daily. - thiamine (VITAMIN B1) 100 mg tablet 1 tablet by ORAL/FEEDING TUBE route three times daily for 260 doses. - ondansetron (ZOFRAN) 4 mg tablet Take 4 mg by mouth every 8 hours as needed for nausea/vomiting (up to 2 doses per day). - dicyclomine (BENTYL) 20 mg tablet Take 20 mg by mouth every 6 hours as needed. Problem List As Of Date 08/06/2022 Noted Resolved Pancreatitis [K85.90] 08/09/2021 Depression [F32.A] 08/09/2021 Dehydration [E86.0] 08/09/2021 08/13/2021 Epigastric abdominal pain [R10.13] 08/09/2021 Elevated liver enzymes [R74.8] 08/09/2021 Uncomplicated alcohol abuse [F10.10] 08/09/2021 Nausea [R11.0] 08/09/2021 08/13/2021 Hypokalemia [E87.6] 08/09/2021 08/13/2021 Nicotine use disorder, F17.2 [F17.200] 08/10/2021 Hepatic steatosis [K76.0] 08/10/2021 Agitation [R45.1] 08/11/2021 08/13/2021 Hyponatremia [E87.1] 08/13/2021 08/13/2021 Alcohol withdrawal (HCC) [F10.939] 08/13/2021 08/13/2021 Encounter Status:Closed by LILLIANA KATE on 08/06/22 [facility] LAB 1 Gene[facility] Normal [facility] Comment on above: Order Comment: Kenneth strong Type: BLOOD SPECIMEN Ordering Facility: [facility] Address: [address] [place] [address] Performed By: #### M ISC1 #### NON-INTERFACED REF LABS CLIA SEE SCANNED RESULTS TEST 1 Combined Toño Plus N uclear Gene Panel Normal [facility] Comment on above: Order Comment: Kenneth strong Type: BLOOD SPECIMEN Ordering Facility: [facility] Address: [address] [place] [address] Performed By: #### M ISC1 #### NON-INTERFACED REF LABS CLIA SEE SCANNED RESULTS TEST RESULTS 1 View results in Scan [employer] Documents link when available. Normal [facility] Comment on above: Order Comment: Kenneth strong Type: BLOOD SPECIMEN Ordering Facility: [facility] Address: [address] [place] [address] Performed By: #### M ISC1 #### NON-INTERFACED REF LABS CLIA SEE SCANNED RESULTS AQUAPORIN-4 ANTIBODY,IGG BY CBA-IFA WITH REFLEX TO TITER,SERUMon 07-25-2022 NMO AQUAPORIN 4 IGG <1:10 Normal <1:10 [facility] Comment on above: Order Comment: Kenneth strong Type: BLOOD SPECIMEN Ordering Facility: [facility] Address: [address] [place] [address] Result Comment: Aqua porin-4 Receptor Antibody, IgG is not detected. No further testing will be performed. INTERPRETIVE INFORMATION: Neuromyelitis Optica/AQP4-IgG, Serum Diagnosis of neuromyelitis optica (NMO) requires the presence of longitudinally extensive acute myelitis (lesions extending over 3 or more vertebral segments) and optic neuritis. Approximately 75 percent of patients with NMO express antibodies to the aquaporin-4 (AQP4) receptor. While the absence of AQP4 receptor antibodies does not rule out a diagnosis of NMO, presence of this antibody is diagnostic for NMO. This test was developed and its performance characteristics determined by [facility]. It has not been cleared or approved by the [place] Food and Drug Administration. This test was performed in a CLIA certified laboratory and is intended for clinical purposes. Performed By: [facility] [address] [place] [address] Core Layer Machine Operator: George Kang MD, PhD Performed By: #### 1 3965-9 #### [facility] [place] [id number] [address] [place] [address] [place] CBC panel Auto (Bld)on 07-25 Erythrocyte distribution width (RBC) [Ratio] 12.4 % Normal 11.5-15.0 [facility] Comment on above: Order Comment: Kenneth strong Type: BLOOD SPECIMEN Ordering Facility: [facility] Address: [address] [address] Performed By: #### 1 3965-9 #### [facility] [place] [id number] [address] [place] [address] [place] Hematocrit (Bld) [Volume fraction] 51.3 % High 39.0-51.0 [facility] Comment on above: Order Comment: Kenneth strong Type: BLOOD SPECIMEN Ordering Facility: [facility] Address: [address] [address] Performed By: #### 1 3965-9 #### [facility] CLIA [id number] [address] [place] [address] [place] Hemoglobin (Bld) [Mass/Vol] 17.8 g/dL High 13.0-17.0 [facility] Comment on above: Order Comment: Kenneth strong Type: BLOOD SPECIMEN Ordering Facility: [facility] Address: [address] [address] Performed By: #### 1 3965-9 #### [facility] CLIA [id number] [address] [place] [facility] MCH (RBC) [Entitic mass] 35.5 pg High 26.0-34.0 [facility] Comment on above: Order Comment: Speci men Type: BLOOD SPECIMEN Ordering Facility: [facility] Address: [address] Performed By: #### 1 3965-9 #### [facility] CLIA [id number] [address] [place] [address] [place] MCHC (RBC) [Mass/Vol] 34.7 g/dL Normal 30.5-36.0 [facility] Comment on above: Order Comment: Speci men Type: BLOOD SPECIMEN Ordering Facility: [facility] Address: [address] [place], [place] [id number] Performed By: #### 1 3965-9 #### [facility] CLIA [id number] [address] [place] [address] [place] MCV (RBC) [Entitic vol] 102.4 fL High 80.0-100.0 [facility] Comment on above: Order Comment: Speci men Type: BLOOD SPECIMEN Ordering Facility: [facility] Address: [address] [place] [address] Performed By: #### 1 3965-9 #### [facility] CLIA [id number] [address] [place] [address] [place] Nucleated RBC (Bld) [#/Vol] 10*3/uL Normal <0.01 [facility] Comment on above: Order Comment: Speci men Type: BLOOD SPECIMEN Ordering Facility: [facility] Address: [address] [place], [place] [address] Performed By: #### 1 3965-9 #### [facility] CLIA [id number] [address] [place] [address] [place] Platelet mean volume (Bld) [Entitic vol] 10.5 fL Normal 9.0-12.7 [facility] Comment on above: Order Comment: Speci men Type: BLOOD SPECIMEN Ordering Facility: [facility] Address: [address] [place], [place] [address] Performed By: #### 1 3965-9 #### [facility] CLIA [id number] [address] [place] [address] [place] Platelets (Bld) [#/Vol] 187 10*3/uL Normal 150-400 [facility] Comment on above: Order Comment: Speci men Type: BLOOD SPECIMEN Ordering Facility: [facility] Address: [address] [place], [place] [id number] Performed By: #### 1 3965-9 #### [facility] CLIA [id number] [address] [place] [address] [place] RBC (Bld) [#/Vol] 5.01 10*6/uL Normal 4.20-6.00 [facility] Comment on above: Order Comment: Speci men Type: BLOOD SPECIMEN Ordering Facility: [facility] Address: [address] [place], [place] [address] Performed By: #### 1 3965-9 #### [facility] CLIA [id number] [facility] [place] [address] [place] WBC (Bld) [#/Vol] 8.23 10*3/uL Normal 3.70-11.00 [facility] Comment on above: Order Comment: Speci men Type: BLOOD SPECIMEN Ordering Facility: [facility] Address: [address] [place], [place] [address] Performed By: #### 1 3965-9 #### [facility] CLIA [id number] [facility] [place] [address] [place] Erythrocyte distribution width (RBC) [Ratio] 12.4 % 11.5 - 15.0 % [facility] Hematocrit (Bld) [Volume fraction] 51.3 % High 39.0 - 51.0 % [facility] Hemoglobin (Bld) [Mass/Vol] 17.8 g/dL High 13.0 - 17.0 g/dL [facility] MCH (RBC) [Entitic mass] 35.5 pg High 26.0 - 34.0 pg [facility] MCHC (RBC) [Mass/Vol] 34.7 g/dL 30.5 - 36.0 g/dL [facility] MCV (RBC) [Entitic vol] 102.4 fL High 80.0 - 100.0 fL [facility] Nucleated RBC (Bld) [#/Vol] <0.01 k/uL [facility] Platelet mean volume (Bld) [Entitic vol] 10.5 fL 9.0 - 12.7 fL [facility] Platelets (Bld) [#/Vol] 187 10*3/uL 150 - 400 k/uL [facility] RBC (Bld) [#/Vol] 5.01 10*6/uL 4.20 - 6.0 0 m/uL [facility] WBC (Bld) [#/Vol] 8.23 10*3/uL 3.70 - 11. 00 k/uL [facility] Comprehensive metabolic 2000 panelon 07-25-2022 Albumin [Mass/Vol] 4.4 g/dL 3.9 - 4.9 g/dL [facility] ALP [Catalytic activity/Vol] 115 U/L High 38 - 113 U/L [facility] ALT [Catalytic activity/Vol] 49 U/L 10 - 54 U/L [facility] Anion gap [Moles/Vol] 13 mmol/L 9 - 18 mmol/L [facility] AST [Catalytic activity/Vol] 57 U/L High 14 - 40 U/L [facility] Bilirubin [Mass/Vol] 0.4 mg/dL 0.2 - 1 .3 mg/dL [facility] Calcium [Mass/Vol] 9.7 mg/dL 8.5 - 10. 2 mg/dL [facility] Chloride [Moles/Vol] 106 mmol/L High 97 - 10 5 mmol/L [facility] CO2 [Moles/Vol] 19 mmol/L Low 22 - 30 mmol/L [facility] Creatinine [Mass/Vol] 0.66 mg/dL Low 0.73 - 1.22 mg/dL [facility] Estimated Glomerular Filtration Rate 117 mL/min/1.73m >=60 mL/min/1.73m [facility] Glucose [Mass/Vol] 121 mg/dL High 74 - 99 mg/dL [facility] Potassium [Moles/Vol] 4.3 mmol/L 3.7 - 5.1 mmol/L [facility] Protein [Mass/Vol] 6.9 g/dL 6.3 - 8.0 g/dL [facility] Sodium [Moles/Vol] 138 mmol/L 136 - 144 mmol/L [facility] Urea nitrogen [Mass/Vol] 9 mg/dL 9 - 24 mg/dL [facility] Albumin [Mass/Vol] 4.4 g/dL Normal 3.9-4.9 [facility] Comment on above: Order Comment: Speci men Type: BLOOD SPECIMEN [facility] [facility] Address: [address] [place] [address] Performed By: #### 1 3965-9 #### [facility] CLIA [id number] [address] [place] [address] [place] ALP [Catalytic activity/Vol] 115 U/L High 38-113 [facility] Comment on above: Order Comment: Speci men Type: BLOOD SPECIMEN Ordering Facility: [facility] Address: [address] [address] Performed By: #### 1 3965-9 #### [facility] CLIA [id number] [address] [place] [address] [place] ALT [Catalytic activity/Vol] 49 U/L Normal 10-54 [facility] Comment on above: Order Comment: Speci men Type: BLOOD SPECIMEN Ordering Facility: [facility] Address: [address] Performed By: #### 1 3965-9 #### [facility] CLIA [id number] [address] [place] [address] [place] Anion gap [Moles/Vol] 13 mmol/L Normal 9-18 [facility] Comment on above: Order Comment: Speci men Type: BLOOD SPECIMEN Ordering Facility: [facility] Address: [address] Performed By: #### 1 3965-9 #### [facility] CLIA [id number] [address] [place] [address] [place] AST [Catalytic activity/Vol] 57 U/L High 14-40 [facility] Comment on above: Order Comment: Speci men Type: BLOOD SPECIMEN Ordering Facility: [facility] Address: [address] Performed By: #### 1 3965-9 #### [facility] CLIA [id number] [address] [place] [address] [place] Bilirubin [Mass/Vol] 0.4 mg/dL Normal 0.2-1.3 [facility] Comment on above: Order Comment: Speci men Type: BLOOD SPECIMEN Ordering Facility: [facility] Address: [address] Performed By: #### 1 3965-9 #### [facility] CLIA [id number] [address] [place] [address] [place] Calcium [Mass/Vol] 9.7 mg/dL Normal 8.5-10.2 [facility] Comment on above: Order Comment: Speci men Type: BLOOD SPECIMEN Ordering Facility: [facility] Address: [address] [place] [address] Performed By: #### 1 3965-9 #### [facility] CLIA [id number] [address] [place] [address] [place] Chloride [Moles/Vol] 106 mmol/L High 97-105 [facility] Comment on above: Order Comment: Speci men Type: BLOOD SPECIMEN Ordering Facility: [facility] Address: [address] Performed By: #### 1 3965-9 #### [facility] CLIA [id number] [address] [place] [address] [place] CO2 [Moles/Vol] 19 mmol/L Low 22-30 [facility] Comment on above: Order Comment: Speci men Type: BLOOD SPECIMEN Ordering Facility: [facility] Address: [address] [place] [address] Performed By: #### 1 3965-9 #### [facility] CLIA [id number] [address] [place] [address] [place] Creatinine [Mass/Vol] 0.66 mg/dL Low 0.73-1.22 [facility] Comment on above: Order Comment: Speci men Type: BLOOD SPECIMEN Ordering Facility: [facility] Address: [address] [place] [address] Performed By: #### 1 3965-9 #### [facility] CLIA [id number] [address] [place] [address] [place] ESTIMATED GLOMERULAR FILTRATION RATE 117 mL/min/1.73m??? Normal >=60 [facility] Comment on above: Order Comment: Speci men Type: BLOOD SPECIMEN Ordering Facility: [facility] Address: [address] [place] [address] Result Comment: Lilia mated Glomerular Filtration Rate (eGFR) is calculated using the 2020 CKD-EPI creatinine equation. This equation utilizes serum creatinine, sex, and age as parameters. The creatinine assay has traceable calibration to isotope dilution-mass spectrometry. Refer to KDIGO guidelines for clinical interpretation. In patients with unstable renal function, e.g. those with acute kidney injury, the eGFR may not accurately reflect actual GFR. Performed By: #### 1 3965-9 #### [facility] CLIA [id number] [address] [place] [address] [place] Glucose [Mass/Vol] 121 mg/dL High 74-99 [facility] Comment on above: Order Comment: Speci men Type: BLOOD SPECIMEN Ordering Facility: [facility] Address: [address] [id number] Result Comment: The [place] Diabetes Association (ADA) provides guidance for cutoff values for fasting glucose and random glucose. The ADA defines fasting as no caloric intake for at least 8 hours. Fasting plasma glucose results between 100 to 125 mg/dL indicate increased risk for diabetes (prediabetes). Fasting plasma glucose results greater than or equal to 126 mg/dL meet the criteria for diagnosis of diabetes. In the absence of unequivocal hyperglycemia, results should be confirmed by repeat testing. In a patient with classic symptoms of hyperglycemia or hyperglycemic crisis, random plasma glucose results greater than or equal to 200 mg/dL meet the criteria for diagnosis of diabetes. Reference: Standards of Medical Care in Diabetes 2016, [place] Diabetes Association. Diabetes Care. 2016.39(Suppl 1). Performed By: #### 1 3965-9 #### [facility] CLIA [id number] [facility] [place] [address] [place] Potassium [Moles/Vol] 4.3 mmol/L Normal 3.7-5.1 [facility] Comment on above: Order Comment: Speci men Type: BLOOD SPECIMEN Ordering Facility: [facility] Address: [address] [address] Performed By: #### 1 3965-9 #### [facility] CLIA [id number] [facility] [place] [address] [place] Protein [Mass/Vol] 6.9 g/dL Normal 6.3-8.0 [facility] Comment on above: Order Comment: Speci men Type: BLOOD SPECIMEN Ordering Facility: [facility] Address: [address] Performed By: #### 1 3965-9 #### [facility] CLIA [id number] [address] [place] [address] [place] Sodium [Moles/Vol] 138 mmol/L Normal 136-144 [facility] Comment on above: Order Comment: Speci men Type: BLOOD SPECIMEN Ordering Facility: [facility] Address: [address] [address] Performed By: #### 1 3965-9 #### [facility] CLIA [id number] [address] [place] [address] [place] Urea nitrogen [Mass/Vol] 9 mg/dL Normal 9-24 [facility] Comment on above: Order Comment: Speci men Type: BLOOD SPECIMEN Ordering Facility: [facility] Address: [address] [place] [address] Performed By: #### 1 3965-9 #### [facility] CLIA [id number] [facility] [place] [address] [place] Hcys SerPl-sCncon 07-25-2022 Homocysteine [Moles/Vol] 45.4 umol/L High <15.1 [facility] Comment on above: Order Comment: Speci men Type: BLOOD SPECIMEN Ordering Facility: [facility] Address: [address] [place] [address] Performed By: #### 1 3965-9 #### [facility] CLIA [id number] [address] [place] [address] [place] MOG-IGG1 FACS,SERUMon 2022 MYELIN OLIGODENDROCYTE GLYCOPROTEIN (MOG-IGG1) FLUORESCENCE-ACTIVAT ED CELL Negative Normal Negative [facility] Comment on above: Order Comment: Speci men Type: BLOOD SPECIMEN Ordering Facility: [facility] Address: [address] [place] [address] Result Comment: No i nformative autoantibodies were detected in this evaluation. A negative result does not preclude a diagnosis of an inflammatory LEAD PROJECT MANAGER demyelinating disorder. ADDITIONAL INFORMATION This test was developed and its performance characteristics determined by [facility] in a manner consistent with CLIA requirements. This test has not been cleared or approved by the U.S. Food and Drug Administration. Test Performed by: [facility] - [address] [address] Career Technical Supervisor: Bran Samano M.D. Ph.D.; [facility]# [id number] Performed By: #### 1 3965-9 #### [facility] CLIA [id number] [address] [place] [address] [place] Methylmalonate SerPl-sCncon 07-25-2022 Methylmalonate [Moles/Vol] 267 nmol/L Normal 79-376 [facility] Comment on above: Order Comment: Speci men Type: BLOOD SPECIMEN Ordering Facility: [facility] Address: [address] [address] Result Comment: This test was developed and its performance characteristics determined by [facility] [place] ([facility] It has not been cleared or approved by the FDA. -[facility] is regulated under CLIA as qualified to perform high-complexity testing. This test is used for clinical purposes. It should not be regarded as investigational or for research. Performed By: #### 1 3965-9 #### [facility] CLIA [id number] [address] [place] [address] [place] Reagin and Treponema pallidu m IgG and IgM [Interp]on 07-25-2022 SYPHILIS INTERPRETATION Cannot exclude recent Treponemal infection if specimen collected within 7-10 days after appearance of suspect lesions or 2-3 weeks after an exposure. Clinical correlation is required. Normal [facility] Comment on above: Order Comment: Speci men Type: BLOOD SPECIMEN Ordering Facility: [facility] Address: [address] [address] Performed By: #### 7 3752-8 #### [facility] CLIA [id number] [address] [place] [address] [place] T. pallidum IgG+IgM IA Ql (S) Non-Reactive Normal Nonreactive [facility] Comment on above: Order Comment: Speci men Type: BLOOD SPECIMEN Ordering Facility: [facility] Address: [address] Performed By: #### 7 3752-8 #### [facility] CLIA [id number] [address] [facility] [address] OF [place] Vit B12 SerPl-mCncon 023 Cobalamin (Vitamin B12) [Mass/Vol] 345 pg/mL Normal 232-1245 [facility] Comment on above: Order Comment: Speci men Type: BLOOD SPECIMEN Ordering Facility: [facility] Address: [address] [place] [address] Performed By: #### 1 3965-9 #### [facility] CLIA [id number] [address] OF [facility] MRI BRAIN W WO CONTRASTon MRI BRAIN W WO CONTRAST EXAMINATION: MRI OF THE BRAIN WITHOUT AND WITH CONTRAST 07/15/2022 10:39 am TECHNIQUE: Multiplanar multisequence MRI of the head/brain was performed without and with the administration of intravenous contrast. COMPARISON: None. HISTORY: ORDERING SYSTEM PROVIDED HISTORY: Vision blurring TECHNOLOGIST PROVIDED HISTORY: STAT Creatinine as needed:->No FINDINGS: INTRACRANIAL STRUCTURES/VENTRICLES: There is no acute infarct. No mass effect or midline shift. No evidence of an acute intracranial hemorrhage. The ventricles and sulci are normal in size and configuration. The sellar/suprasellar regions appear unremarkable. The normal signal voids within the major intracranial vessels appear maintained. No abnormal focus of enhancement is seen within the brain. ORBITS: The visualized portion of the orbits demonstrate no acute abnormality. SINUSES: The visualized paranasal sinuses and mastoid air cells demonstrate no acute abnormality. BONES/SOFT TISSUES: The bone marrow signal intensity appears normal. The soft tissues demonstrate no acute abnormality. IMPRESSION: There are no acute intracranial changes. Interpreted by: Elie Mae MD Signed by: Elie Mae MD 07/15/22 Final result Normal [facility] Ammoniaon 07-09-2022 Ammonia (P) [Moles/Vol] 67 umol/L Critically high 16-60 [facility] Comment on above: Order Comment: CALL doctor L0346 tel. [phone], Performed By: #### N H3 #### [facility] [address] [place] [address] Ammonia (P) [Moles/Vol] 67 umol/L High 16 - 60 umol/L [facility] Interpretation and review of laboratory results Abnormal [facility] CALL doctor [id number] te l. [phone], [facility] CBC With Platelet and Differ entialon 07-09-2022 Macrocytic 1+ Normal [facility] Comment on above: Order Comment: CALL doctor L0346 tel. [phone], Performed By: #### C BCWD #### [facility] [address] [facility] [address] Platelet Slide Review Normal Normal [facility] Comment on above: Order Comment: CALL doctor L0346 tel. [phone], Performed By: #### C BCWD #### [facility] [address] [place] [address] Stomatocytes 1+ Normal [facility] Comment on above: Order Comment: CALL doctor L0346 tel. [phone], Performed By: #### C BCWD #### [facility] [address] [place] [address] Basophils (Bld) [#/Vol] 0.1 10*3/uL Normal 0.0-0.2 [facility] Comment on above: Order Comment: CALL doctor L0346 tel. [phone], Performed By: #### C BCWD #### [facility] [address] [place] [address] Basophils/100 WBC (Bld) 1.0 % Normal [facility] Comment on above: Order Comment: CALL doctor L0346 tel. [phone], Performed By: #### C BCWD #### [facility] [address] [place] [address] Eosinophils (Bld) [#/Vol] 0.1 10*3/uL Normal 0.0-0.7 [facility] Comment on above: Order Comment: CALL doctor L0346 tel. [phone], Performed By: #### C BCWD #### [facility] [address] [place] [address] Eosinophils/100 WBC (Bld) 1.6 % Normal [facility] Comment on above: Order Comment: CALL doctor L0346 tel. [phone], Performed By: #### C BCWD #### [facility] [address] [place] [address] Erythrocyte distribution width (RBC) [Ratio] 13.3 % Normal 11.5-14.5 [facility] Comment on above: Order Comment: CALL doctor L0346 tel. [phone], Performed By: #### C BCWD #### [facility] [address] [place] [address] Hematocrit (Bld) [Volume fraction] 52.3 % Critically high 42.0-52.0 [facility] Comment on above: Order Comment: CALL doctor L0346 tel. [phone], Performed By: #### C BCWD #### [facility] [address] [place] [address] Hemoglobin (Bld) [Mass/Vol] 17.6 g/dL Normal 14.0-18.0 [facility] Comment on above: Order Comment: CALL doctor L0346 tel. [phone], Performed By: #### C BCWD #### [facility] [address] [place] [address] Lymphocytes (Bld) [#/Vol] 1.4 10*3/uL Normal 1.0-4.8 [facility] Comment on above: Order Comment: CALL doctor L0346 tel. [phone], Performed By: #### C BCWD #### [facility] [address] [place] [address] Lymphocytes/100 WBC (Bld) 17.0 % Normal [facility] Comment on above: Order Comment: CALL doctor L0346 tel. [phone], Performed By: #### C BCWD #### [facility] [address] [place] [address] MCH (RBC) [Entitic mass] 35.7 pg Critically high 27.0-31.3 [facility] Comment on above: Order Comment: CALL doctor L0346 tel. [phone], Performed By: #### C BCWD #### [facility] [address] [place] [address] MCHC 33.6 % Normal 33.0-37.0 [facility] Comment on above: Order Comment: CALL doctor L0346 tel. [phone], Performed By: #### C BCWD #### [facility] [address] [place] [address] MCV (RBC) [Entitic vol] 106.3 fL Critically high 79.0-92.2 [facility] Comment on above: Order Comment: CALL doctor L0346 tel. [phone], Performed By: #### C BCWD #### [facility] [address] [place] [address] Monocytes (Bld) [#/Vol] 0.6 10*3/uL Normal 0.2-0.8 [facility] Comment on above: Order Comment: CALL doctor L0346 tel. [phone], Performed By: #### C BCWD #### [facility] [address] [place] [address] Monocytes/100 WBC (Bld) 7.1 % Normal [facility] Comment on above: Order Comment: CALL doctor L0346 tel. [phone], Performed By: #### C BCWD #### [facility] [address] [place] [address] Neutrophils (Bld) [#/Vol] 6.0 10*3/uL Normal 1.4-6.5 [facility] Comment on above: Order Comment: CALL doctor L0346 tel. [phone], Performed By: #### C BCWD #### [facility] [address] [place] [address] Neutrophils/100 WBC (Bld) 73.3 % Normal [facility] Comment on above: Order Comment: CALL doctor L0346 tel. [phone], Performed By: #### C BCWD #### [facility] [address] [place] [address] Platelets (Bld) [#/Vol] 233 10*3/uL Normal 130-400 [facility] Comment on above: Order Comment: CALL doctor L0346 tel. [phone], Performed By: #### C BCWD #### [facility] [address] [place] [address] RBC (Bld) [#/Vol] 4.92 10*6/uL Normal 4.70-6.10 [facility] Comment on above: Order Comment: CALL doctor L0346 tel. [phone], Performed By: #### C BCWD #### [facility] [address] [place] [address] WBC (Bld) [#/Vol] 8.1 10*3/uL Normal 4.8-10.8 [facility] Comment on above: Order Comment: CALL doctor L0346 tel. [phone], Performed By: #### C BCWD #### [facility] [address] [place] [address] CBC with Auto Differentialon 07-09-2022 Basophils (Bld) [#/Vol] 0.1 10*3/uL 0.0 - 0.2 K/uL [facility] Basophils/100 WBC (Bld) 1.0 % [facility] Eosinophils (Bld) [#/Vol] 0.1 10*3/uL 0.0 - 0.7 K/uL [facility] Eosinophils/100 WBC (Bld) 1.6 % [facility] Hematocrit (Bld) [Volume fraction] 52.3 % High 42.0 - 52.0 % [facility] Hemoglobin (Bld) [Mass/Vol] 17.6 g/dL 14.0 - 18.0 g/dL [facility] Interpretation and review of laboratory results Abnormal [facility] Lymphocytes (Bld) [#/Vol] 1.4 10*3/uL 1.0 - 4.8 K/uL [facility] Lymphocytes/100 WBC (Bld) 17.0 % [facility] Macrocytes Ql (Bld) 1+ DEVAN Willis [facility] MCH (RBC) [Entitic mass] 35.7 pg High 27.0 - 31.3 pg [facility] MCHC (RBC) [Mass/Vol] 33.6 % 33.0 - 37.0 % [facility] MCV (RBC) [Entitic vol] 106.3 fL High 79.0 - 92.2 fL [facility] Monocytes (Bld) [#/Vol] 0.6 10*3/uL 0.2 - 0.8 K/uL [facility] Monocytes/100 WBC (Bld) 7.1 % [facility] Neutrophils Absolute 6.0 K/uL 1.4 - 6 .5 K/uL [facility] Neutrophils/100 WBC (Bld) 73.3 % [facility] Platelet distribution width (Bld) [Ratio] 13.3 % 11.5 - 14.5 % [facility] PLATELET SLIDE REVIEW Normal [facility] Platelets (Bld) [#/Vol] 233 10*3/uL 130 - 400 K/uL [facility] RBC (Bld) [#/Vol] 4.92 10*6/uL [facility] Stomatocytes 1+ [facility] WBC (Bld) [#/Vol] 8.1 10*3/uL 4.8 - 10.8 K/uL [facility] CALL doctor [id number] te l. [phone], [facility] Comprehensive Metabolic Pane samia 07-09-2022 Albumin [Mass/Vol] 4.6 g/dL Normal 3.5-4.6 [facility] Comment on above: Order Comment: CALL doctor L0346 tel. [phone], Performed By: #### C MP #### [facility] [address] [place] [address] ALP [Catalytic activity/Vol] 151 U/L Critically high 35-104 [facility] Comment on above: Order Comment: CALL doctor L0346 tel. [phone], Performed By: #### C MP #### [facility] [address] [place] [address] ALT [Catalytic activity/Vol] 70 U/L Critically high 0-41 [facility] Comment on above: Order Comment: CALL doctor L0346 tel. [phone], Performed By: #### C MP #### [facility] [address] [place] [address] Anion gap [Moles/Vol] 11 mmol/L Normal 9-15 [facility] Comment on above: Order Comment: CALL doctor L0346 tel. [phone], Performed By: #### C MP #### [facility] [address] [place] [address] AST [Catalytic activity/Vol] 87 U/L Critically high 0-40 [facility] Comment on above: Order Comment: CALL doctor L0346 tel. [phone], Performed By: #### C MP #### [facility] [address] [place] [address] Bilirubin [Mass/Vol] 0.4 mg/dL Normal 0.2-0.7 [facility] Comment on above: Order Comment: CALL doctor L0346 tel. [phone], Performed By: #### C MP #### [facility] [address] [place] [address] Calcium [Mass/Vol] 10.0 mg/dL Critically high 8.5-9.9 [facility] Comment on above: Order Comment: CALL doctor L0346 tel. [phone], Performed By: #### C MP #### [facility] [address] [place] [address] Chloride [Moles/Vol] 103 mmol/L Normal 95-107 [facility] Comment on above: Order Comment: CALL doctor L0346 tel. [phone], Performed By: #### C MP #### [facility] [address] [place] [address] CO2 [Moles/Vol] 26 mmol/L Normal 20-31 [facility] Comment on above: Order Comment: CALL doctor L0346 tel. [phone], Performed By: #### C MP #### [facility] [address] [place] [address] Creatinine [Mass/Vol] 0.64 mg/dL Low 0.70-1.20 [facility] Comment on above: Order Comment: CALL doctor L0346 tel. [phone], Performed By: #### C MP #### [facility] [address] [place] [address] GFR >60.0 Normal >60 [facility] Comment on above: Order Comment: CALL doctor L0346 tel. [phone], Result Comment: Vijay atric calculator link https://www.kidney.org/professionals/kdoqi/gfr_calculatorped Effective Mar 04, 2022 These results are not intended for use in patients <18 years of age. eGFR results are calculated without a race factor using the 2020 CKD-EPI equation. Careful clinical correlation is recommended, particularly when comparing to results calculated using previous equations. The CKD-EPI equation is less accurate in patients with extremes of muscle mass, extra-renal metabolism of creatinine, excessive creatinine ingestion, or following therapy that affects renal tubular secretion. Performed By: #### C MP #### [facility] [address] [place] [address] Globulin (S) [Mass/Vol] 2.8 g/dL Normal 2.3-3.5 [facility] Comment on above: Order Comment: CALL doctor L0346 tel. [phone], Performed By: #### C MP #### [facility] [address] [place] [address] Glucose [Mass/Vol] 99 mg/dL Normal 70-99 [facility] Comment on above: Order Comment: CALL doctor [id number] tel. [phone], Performed By: #### C MP #### [facility] [address] [place] [address] Potassium [Moles/Vol] 4.6 mmol/L Normal 3.4-4.9 [facility] Comment on above: Order Comment: CALL doctor [id number] tel. [phone], Performed By: #### C MP #### [facility] [address] [place] [address] Protein [Mass/Vol] 7.4 g/dL Normal 6.3-8.0 [facility] Comment on above: Order Comment: CALL doctor [id number] tel. [phone], Performed By: #### C MP #### [facility] [address] [place] [address] Sodium [Moles/Vol] 140 mmol/L Normal 135-144 [facility] Comment on above: Order Comment: CALL doctor [id number] tel. [phone], Performed By: #### C MP #### [facility] [address] [place] [address] Urea nitrogen [Mass/Vol] 6 mg/dL Normal 6-20 [facility] Comment on above: Order Comment: CALL doctor [id number] tel. [phone], Performed By: #### C MP #### [facility] [address] [place] [address] Albumin [Mass/Vol] 4.6 g/dL 3.5 - 4.6 g/dL [facility] ALP (Bld) [Catalytic activity/Vol] 151 U/L High 35 - 104 U/L [facility] ALT [Catalytic activity/Vol] 70 U/L High 0 - 41 U/L [facility] Anion gap [Moles/Vol] 11 mmol/L [facility] AST [Catalytic activity/Vol] 87 U/L High 0 - 40 U/L [facility] Bilirubin [Mass/Vol] 0.4 mg/dL 0.2 - 0 .7 mg/dL [facility] Calcium [Mass/Vol] 10.0 mg/dL High 8.5 - 9.9 mg/dL [facility] Chloride [Moles/Vol] 103 mmol/L [facility] CO2 [Moles/Vol] 26 mmol/L [facility] Creatinine [Mass/Vol] 0.64 mg/dL Low 0.70 - 1.20 mg/dL [facility] GFR/1.73 sq M.predicted MDRD (S/P/Bld) [Vol rate/Area] 60 - PINF [facility] Comment on above: Pediatric calculator link https://www.kidney.org/professionals/kdoqi/gfr_calculatorped Effective Mar 04, 2022 These results are not intended for use in patients <18 years of age. eGFR results are calculated without a race factor using the 2020 CKD-EPI equation. Careful clinical correlation is recommended, particularly when comparing to results calculated using previous equations. The CKD-EPI equation is less accurate in patients with extremes of muscle mass, extra-renal metabolism of creatinine, excessive creatinine ingestion, or following therapy that affects renal tubular secretion. Globulin (S) [Mass/Vol] 2.8 g/dL 2.3 - 3.5 g/dL [facility] Glucose [Mass/Vol] 99 mg/dL 70 - 99 mg/dL [facility] Potassium [Moles/Vol] 4.6 mmol/L [facility] Protein [Mass/Vol] 7.4 g/dL 6.3 - 8.0 g/dL [facility] Sodium [Moles/Vol] 140 mmol/L [facility] Urea nitrogen (BldV) [Mass/Vol] 6 mg/dL 6 - 20 mg/dL [facility] Lipid Panelon 07-09-2022 Cholesterol [Mass/Vol] 215 mg/dL Critically high 0-199 [facility] Comment on above: Order Comment: CALL doctor [id number] tel. [phone], Result Comment: ATP III Cholesterol Classification is Borderline High. Performed By: #### L IPID #### [facility] [address] [place] [address] Cholesterol in HDL [Mass/Vol] 77 mg/dL Critically high 40-59 [facility] Comment on above: Order Comment: CALL doctor [id number] tel. [phone], Result Comment: ATP III HDL Cholesterol Classification is high. Expected Values: Males: >55 = No Risk 35-55 = Moderate Risk <35 = High Risk Females: >65 = No Risk 45-65 = Moderate Risk <45 = High Risk NCEP Guidelines: Third Report September 2000 >59 = negative risk factor for CHD <40 = major risk factor for CHD Performed By: #### L IPID #### [facility] [address] [place] [address] Cholesterol in LDL [Mass/Vol] 105 mg/dL Normal 0-129 [facility] Comment on above: Order Comment: CALL doctor [id number] tel. [phone], Result Comment: ATP III LDL Classification is Near Optimal. Performed By: #### L IPID #### [facility] [address] [place] [address] Triglyceride [Mass/Vol] 164 mg/dL Critically high 0-150 [facility] Comment on above: Order Comment: CALL doctor [id number] tel. [phone], Result Comment: ATP III Triglycerides Classification is Borderline High. Performed By: #### L IPID #### [facility] [address] [place] [address] Cholesterol [Mass/Vol] 215 mg/dL High 0 - 199 mg/dL [facility] Comment on above: ATP III Cholesterol Classification is Borderline High. Cholesterol in HDL [Mass/Vol] 77 mg/dL High 40 - 59 mg/dL [facility] Comment on above: ATP III HDL Choleste rol Classification is high. Expected Values: Males: >55 = No Risk 35-55 = Moderate Risk <35 = High Risk Females: >65 = No Risk 45-65 = Moderate Risk <45 = High Risk NCEP Guidelines: Third Report September 2000 >59 = negative risk factor for CHD <40 = major risk factor for CHD Cholesterol in LDL [Mass/Vol] 105 mg/dL 0 - 129 mg/dL [facility] Comment on above: ATP III LDL Classifi cation is Near Optimal. Triglyceride [Mass/Vol] 164 mg/dL High 0 - 150 mg/dL [facility] Comment on above: ATP III Triglyceride s Classification is Borderline High. No Panel Informationon 07-09 Interpretation and review of laboratory results Abnormal [facility] CALL doctor [id number] te l. [phone], [facility] TSHon 07-09-2022 TSH Qn 2.330 m[IU]/L [facility] TSH w/out Reflexon 3 TSH w/out Reflex 2.330 uIU/mL Normal 0.440-3.86 [facility] Comment on above: Order Comment: CALL doctor [id number] tel. [phone], Performed By: #### T #### [facility] [address] [facility] [address] US ABDOMEN LIMITEDon 023 US ABDOMEN LIMITED EXAMINATION: RIGHT UPPER QUADRANT ULTRASOUND 07/09/2022 9:28 am COMPARISON: None. HISTORY: ORDERING SYSTEM PROVIDED HISTORY: Liver dysfunction TECHNOLOGIST PROVIDED HISTORY: What reading provider will be dictating this exam?->CRC FINDINGS: LIVER: The liver has a craniocaudal length of 20.2 cm. Liver normal in contour and increased in echogenicity. BILIARY SYSTEM: Gallbladder is unremarkable without evidence of pericholecystic fluid, wall thickening or stones. Negative sonographic Connors's sign. Common bile duct is within normal limits measuring 2.6 mm.. RIGHT KIDNEY: The right kidney is grossly unremarkable without evidence of hydronephrosis. Right kidney measures 11.6 x 5.5 x 6.8 cm. PANCREAS: Portion of pancreatic body normal in size, shape, and echogenicity. Remainder pancreas obscured by overlying bowel gas. OTHER: No evidence of right upper quadrant ascites. IMPRESSION: Hepatic steatosis. Hepatomegaly. Interpreted by: Darshan Trejo MD Signed by: Darshan Trejo MD 07/09/22 Final result Normal [facility] Hepatic steatosis. Hepatomegaly. [facility] EXAMINATION: RIGHT UPPER QUADRANT ULTRASOUND 07/09/2022 9:28 am COMPARISON: None. HISTORY: ORDERING SYSTEM PROVIDED HISTORY: Liver dysfunction TECHNOLOGIST PROVIDED HISTORY: What reading provider will be dictating this exam?->CRC FINDINGS: LIVER: The liver has a craniocaudal length of 20.2 cm. Liver normal in contour and increased in echogenicity. BILIARY SYSTEM: Gallbladder is unremarkable without evidence of pericholecystic fluid, wall thickening or stones. Negative sonographic Connors's sign. Common bile duct is within normal limits measuring 2.6 mm.. RIGHT KIDNEY: The right kidney is grossly unremarkable without evidence of hydronephrosis. Right kidney measures 11.6 x 5.5 x 6.8 cm. PANCREAS: Portion of pancreatic body normal in size, shape, and echogenicity. Remainder pancreas obscured by overlying bowel gas. OTHER: No evidence of right upper quadrant ascites. [facility] Signer, MD Darshan - 07/09/2022 EXAMINATION: RIGHT UPPER QUADRANT ULTRASOUND 07/09/2022 9:28 am COMPARISON: None. HISTORY: ORDERING SYSTEM PROVIDED HISTORY: Liver dysfunction TECHNOLOGIST PROVIDED HISTORY: What reading provider will be dictating this exam?->CRC FINDINGS: LIVER: The liver has a craniocaudal length of 20.2 cm. Liver normal in contour and increased in echogenicity. BILIARY SYSTEM: Gallbladder is unremarkable without evidence of pericholecystic fluid, wall thickening or stones. Negative sonographic Connors's sign. Common bile duct is within normal limits measuring 2.6 mm.. RIGHT KIDNEY: The right kidney is grossly unremarkable without evidence of hydronephrosis. Right kidney measures 11.6 x 5.5 x 6.8 cm. PANCREAS: Portion of pancreatic body normal in size, shape, and echogenicity. Remainder pancreas obscured by overlying bowel gas. OTHER: No evidence of right upper quadrant ascites. IMPRESSION: Hepatic steatosis. Hepatomegaly. [facility] Phone: Radiology Study observation (narrative) [facility] Phone: US ABDOMEN LIMITEDOrdered By : Darshan Trejo on 07-09-2022 [facility] Phone: XR CHEST (2 VW)on 07-09-2022 XR CHEST (2 VW) EXAMINATION: TWO XRAY VIEWS OF THE CHEST 07/09/2022 10:14 am COMPARISON: None. HISTORY: ORDERING SYSTEM PROVIDED HISTORY: Complaining of cough TECHNOLOGIST PROVIDED HISTORY: What reading provider will be dictating this exam?->CRC FINDINGS: Two-view chest reveals cardiac and mediastinal silhouettes within normal limits. The lung bocanegra are grossly clear. No focal parenchymal opacification present. No pleural effusion or pneumothorax. Bony structures are unremarkable. Pulmonary vascularity is within normal limits. IMPRESSION: No acute cardiopulmonary disease. Interpreted by: Vilma Mercado MD Signed by: Vilma Mercado MD 07/15/22 Final result Normal [facility] CNPNon 07-02-2022 CNPN Telephone (OPHTMN) -- FORD PHELAN ([id number]) 1975 M Date Time Provider Department 07/02/22 [facility] During your visit today, we recorded the following information about you: Jerrica Adrian 07/02/2022 1:36 PM Signed Contacted the patient and relayed the below message. Patient accepted the offered appointment, and a message has been sent to have the patient added. Message Received: 5 days ago DO Robin Rosas OD; Jerrica Adrian Can see Jul 23rd am in SV Previous Messages ----- Message ----- From: Robin Martinez OD Sent: 06/26/2022 12:17 PM EST To: DO Herbert Rosas, This patient has bilateral optic nerve head edema and he states he was seen in ED and told that this was due to elevated hypertension. He claims the had a CT scan of the head that came back normal. I am asking for a second opinion with your clinic, otherwise I can follow up with him in a few weeks. This patient understands that he should report to the ED with an increase in symptoms. Thank you in advance for your advice, Robin Adrian 07/11/2022 2:31 PM Signed Patient has been scheduled as requested. Allergies As of Date: 07/02/2022 (No Known Allergies) Date Reviewed: 06/26/2022 Reviewed by: Robin Martinez OD - Fully Assessed Reason for Visit: Appointment [186] Prescriptions as of 07/11/2022 - hydroCHLOROthiazide (HYDRODIURIL, ESIDRIX) 12.5 mg capsule Take 12.5 mg by mouth. - albuterol HFA (PROVENTIL HFA, VENTOLIN HFA) 90 mcg/actuation inhaler Inhale 2 Puffs as instructed every 4 hours as needed. - sertraline (ZOLOFT) 50 mg tablet Take 1 tablet by mouth once daily. - thiamine (VITAMIN B1) 100 mg tablet 1 tablet by ORAL/FEEDING TUBE route three times daily for 260 doses. - ondansetron (ZOFRAN) 4 mg tablet Take 4 mg by mouth every 8 hours as needed for nausea/vomiting (up to 2 doses per day). - dicyclomine (BENTYL) 20 mg tablet Take 20 mg by mouth every 6 hours as needed. Problem List As Of Date 07/02/2022 Noted Resolved Pancreatitis [K85.90] 08/09/2021 Depression [F32.A] 08/09/2021 Dehydration [E86.0] 08/09/2021 08/13/2021 Epigastric abdominal pain [R10.13] 08/09/2021 Elevated liver enzymes [R74.8] 08/09/2021 Uncomplicated alcohol abuse [F10.10] 08/09/2021 Nausea [R11.0] 08/09/2021 08/13/2021 Hypokalemia [E87.6] 08/09/2021 08/13/2021 Nicotine use disorder, F17.2 [F17.200] 08/10/2021 Hepatic steatosis [K76.0] 08/10/2021 Agitation [R45.1] 08/11/2021 08/13/2021 Hyponatremia [E87.1] 08/13/2021 08/13/2021 Alcohol withdrawal (HCC) [F10.939] 08/13/2021 08/13/2021 Encounter Status:Closed by JERRICA ADRIAN on 07/11/[address] [facility] [address] HEAD OR BRAIN WITHOUT CON TRASTon 06-17-2022 CT HEAD OR BRAIN WITHOUT CONTRAST EXAMINATION: CT HEAD OR BRAIN WITHOUT CONTRAST HISTORY: blurry vision COMPARISON: None TECHNIQUE: Standard noncontrast brain CT. Dose reduction techniques were achieved by using automated exposure control and/or adjustment of mA and/or kV according to patient size and/or use of iterative reconstruction technique. FINDINGS: No intracranial hemorrhage, extra-axial fluid collection, hydrocephalus, midline shift, or acute infarction. No other mass effect. Patent basal cisterns. No calvarial fracture. Normal soft tissues. Paranasal sinuses and mastoid air cells are well-aerated. IMPRESSION: No acute intracranial process. Workstation ID: [id number] Dictated by: NIKO PASTOR on FriJun 17, 2022 5:11:50 PM EST Transcribed by: NIKO PASTOR on FriJun 17, 2022 5:11:50 PM EST Finalized by: NIKO PASTOR on FriJun 17, 2022 5:11:50 PM EST [facility] Comment on above: Order Comment: Injur y/Trauma or Illness?:Illness/Other How long have you had these symptoms (acute/chronic)?:Acute Reason for exam?:Hypertension Type of Exam?:Initial Additional signs and symptoms?:blurry vision XR CHEST PA/APon 06-17-2022 XR CHEST PA/AP EXAMINATION: XR CHEST PA/AP HISTORY: ORDERING SYSTEM PROVIDED HISTORY: htn, TECHNOLOGIST PROVIDED HISTORY: Illness/Other Reason for exam: htn Cancer History: n Surgery, RadiationHistory: n Encounter Type: Initial Additional signs and symptoms: blurry vision ORDERING SYSTEM PROVIDED DIAGNOSIS CODES: I10 Hypertension, unspecified type COMPARISON: None. FINDINGS: One-view chest x-ray. No pneumothorax, pleural effusion or focal airspace consolidation. Heart is normal in size. Chronic healed left posterolateral 5th and 6th rib fractures. IMPRESSION: No acute cardiopulmonary process. ST/alt Workstation ID: [id number] Dictated by: MARIAMA LOU on FriJun 17, 2022 4:41:26 PM EST Transcribed by: ERNESTO NUNO on FriJun 17, 2022 5:09:54 PM EST Finalized by: MARIAMA LOU on FriJun 17, 2022 9:30:40 PM EST [facility] Comment on above: Order Comment: Injur y/Trauma or Illness?:Illness/Other How long have you had these symptoms (acute/chronic)?:Acute Reason for exam?:htn History of cancer?:n Surgeries, chemotherapy, or radiation?:n Type of Exam?:Initial Additional signs and symptoms?:blurry vision Pancreatic Elastase, Fecalon 05-20-2021 Pancreatic Elastase, Fecal >800 Normal >=100 [facility] Comment on above: Result Comment: REFE RENCE INTERVAL: Pancreatic Elastase Fecal by Immunoassay Less than 100 ug/g............Severe insufficiency 100 - 199 ug/g................Moderate insufficiency 200 ug/g or greater...........Normal INTERPRETIVE INFORMATION: Pancreatic Elastase Fecal by Immunoassay Reference intervals do not apply for infants less than one month old. Performed by [facility], [address], [place] [id number] www.[email or web address], Chantelle Cordoba MD - Lab. Director Calprotectin, Fecalon 2020 Calprotectin, Fecal <5 Normal <=49 [facility] Comment on above: Result Comment: REFE RENCE INTERVAL: Calprotectin, Fecal by Immunoassay Less than 50 ug/g.........Normal 50-120 ug/g...............Borderline elevated, test should be re-evaluated in 4-6 weeks. 121 ug/g or greater.......Elevated Performed By: [facility] [address] [place] [address] [employer] Layer Machine Operator: Chantelle Cordoba MD OP Panel ([employer]) on 05-18-2021 Ova and Parasite, Fecal Interp Negative Normal Negative [facility] Comment on above: Result Comment: INTE RPRETIVE INFORMATION: Ova and Parasite, Fecal Method for identification of Ova and Parasites includes wet mount and trichrome stains. Due to the various shedding cycles of many parasites, three separate stool specimens collected over a 5-7-day period are recommended for ova and parasite examination. A single negative result does not rule out the possibility of a parasitic infection. The ova and parasite exam does not specifically detect Cryptosporidium, Cyclospora, Cystoisospora, and Microsporidia. For additional test information refer to [email or web address] consult, [email or web address] Performed By: [facility] [address] [place] [id number] [employer] Operator: Chantelle Cordoba MD Clostridium difficile Toxin Antigenon 05-14-2021 Clostridium difficile Toxin Antigen ORDER#: [id number] ORDERED BY: JEOVANNY BROWN SOURCE: Stool COLLECTED: 05/14/21 10:52 ANTIBIOTICS AT NISHA.: RECEIVED : 05/14/21 13:36 Clostridium difficile Toxin Antigen FINAL 05/15/21 11:59 Negative for Clostridium difficile antigen and toxin Normal Range: Negative Normal [facility] Comment on above: Performed By: #### 7 CDIF #### [facility] [address] [place] [address] GI Bacterial Pathogens Panel by PCRon 05-14-2021 GI Bacterial Pathogens Panel by PCR ORDER#: [id number] ORDERED BY: JEOVANNY BROWN SOURCE: Stool COLLECTED: 05/14/21 10:52 ANTIBIOTICS AT NISHA.: RECEIVED : 05/14/21 13:36 GI Bacterial Pathogens Panel by PCR FINAL 05/15/21 10:41 DNA of organisms below NOT DETECTED The following organisms have been tested using nucleic acid testing technology. Campylobacter species Salmonella species Shigella species Vibrio species Yersinia enterocolitica Shigatoxin 1 and 2 (STEC) Norovirus Rotavirus Normal Range: Not Detected Normal [facility] Comment on above: Performed By: #### 7 GIP #### [facility] [address] [place] [address] CBC With Platelet and Differ entialon 05-10-2021 Basophils (Bld) [#/Vol] 0.1 10*3/uL Normal 0.0-0.2 [facility] Comment on above: Performed By: #### C BCWD #### [facility] [address] [place] [address] Basophils/100 WBC (Bld) 1.1 % Normal [facility] Comment on above: Performed By: #### C BCWD #### [facility] [address] [place] [address] Eosinophils (Bld) [#/Vol] 0.1 10*3/uL Normal 0.0-0.7 [facility] Comment on above: Performed By: #### C BCWD #### [facility] [address] [place] [address] Eosinophils/100 WBC (Bld) 1.3 % Normal [facility] Comment on above: Performed By: #### C BCWD #### [facility] [address] [place] [address] Erythrocyte distribution width (RBC) [Ratio] 13.2 % Normal 11.5-14.5 [facility] Comment on above: Performed By: #### C BCWD #### [facility] [address] [place] [address] Hematocrit (Bld) [Volume fraction] 46.0 % Normal 42.0-52.0 [facility] Comment on above: Performed By: #### C BCWD #### [facility] [address] [place] [address] Hemoglobin (Bld) [Mass/Vol] 15.7 g/dL Normal 14.0-18.0 [facility] Comment on above: Performed By: #### C BCWD #### [facility] [address] [place] [address] Lymphocytes (Bld) [#/Vol] 0.8 10*3/uL Low 1.0-4.8 [facility] Comment on above: Performed By: #### C BCWD #### [facility] [address] [place] [address] Lymphocytes/100 WBC (Bld) 12.0 % Normal [facility] Comment on above: Performed By: #### C BCWD #### [facility] [address] [place] [address] MCH (RBC) [Entitic mass] 33.4 pg Critically high 27.0-31.3 [facility] Comment on above: Performed By: #### C BCWD #### [facility] [address] [place] [address] MCHC 34.1 % Normal 33.0-37.0 [facility] Comment on above: Performed By: #### C BCWD #### [facility] [address] [place] [address] MCV (RBC) [Entitic vol] 98.1 fL Normal 80.0-100.0 [facility] Comment on above: Performed By: #### C BCWD #### [facility] [address] [place] [address] Monocytes (Bld) [#/Vol] 0.5 10*3/uL Normal 0.2-0.8 [facility] Comment on above: Performed By: #### C BCWD #### [facility] [address] [place] [address] Monocytes/100 WBC (Bld) 8.3 % Normal [facility] Comment on above: Performed By: #### C BCWD #### [facility] [address] [place] [address] Neutrophils (Bld) [#/Vol] 4.9 10*3/uL Normal 1.4-6.5 [facility] Comment on above: Performed By: #### C BCWD #### [facility] [address] [place] [address] Neutrophils/100 WBC (Bld) 77.3 % Normal [facility] Comment on above: Performed By: #### C BCWD #### [facility] [address] [place] [address] Platelets (Bld) [#/Vol] 215 10*3/uL Normal 130-400 [facility] Comment on above: Performed By: #### C BCWD #### [facility] [address] [place] [address] RBC (Bld) [#/Vol] 4.68 10*6/uL Low 4.70-6.10 [facility] Comment on above: Performed By: #### C BCWD #### [facility] [address] [place] [address] WBC (Bld) [#/Vol] 6.4 10*3/uL Normal 4.8-10.8 [facility] Comment on above: Performed By: #### C BCWD #### [facility] [address] [place] [address] Liver Panelon 05-10-2021 Albumin [Mass/Vol] 4.8 g/dL Critically high 3.5-4.6 [facility] Comment on above: Performed By: #### L IVER #### [facility] [address] [place] [address] ALP [Catalytic activity/Vol] 136 U/L Critically high 35-104 [facility] Comment on above: Performed By: #### L IVER #### [facility] [address] [place] [address] ALT [Catalytic activity/Vol] 73 U/L Critically high 0-41 [facility] Comment on above: Performed By: #### L IVER #### [facility] [address] [place] [address] AST [Catalytic activity/Vol] 106 U/L Critically high 0-40 [facility] Comment on above: Performed By: #### L IVER #### [facility] [address] [place] [address] Bilirubin [Mass/Vol] 0.5 mg/dL Normal 0.2-0.7 [facility] Comment on above: Performed By: #### L IVER #### [facility] [address] [place] [address] Bilirubin Indirect see below Normal 0.0-0.6 [facility] Comment on above: Result Comment: Colleen rect Bilirubin cannot be calculated since Total Bilirubin and/or Direct Bilirubin is below measurable range. Performed By: #### L IVER #### [facility] [address] [place] [address] Bilirubin.indirect [Mass/Vol] mg/dL Normal 0.0-0.4 [facility] Comment on above: Performed By: #### L IVER #### [facility] [address] [place] [address] Protein [Mass/Vol] 7.6 g/dL Normal 6.3-8.0 [facility] Comment on above: Performed By: #### L ROSA #### [facility] [address] [place] [address] B Natriuretic Peptideon BNP 12 pg/mL Normal <100 [facility] Comment on above: Performed By: #### 1 [id number] ####[facility] [address] [place] [address] C-Reactive Protein, High Sen sitivityon 12-01-2017 C-Reactive Protein, High Sensitivity 1.30 mg/L Normal [facility] Comment on above: Result Comment: < 1. 0 LOW RELATIVE RISK OF CVD1.0 - 3.0 AVERAGE RELATIVE RISK OF CVD> 3.0 HIGH RELATIVE RISK OF CVD Performed By: #### 1 [id number] ####[facility] [address] [place] [address] CBC With Differentialon Basophils Auto #/vol (Bld) 0.04 10*3/uL Normal 0.01-0.09 [facility] Comment on above: Performed By: #### 2 [id number] ####[facility] [address] [place] [address] Basophils/100 WBC Auto (Bld) 0.4 % Normal 0.0-1.3 [facility] Comment on above: Performed By: #### 2 [id number] ####[facility] [address] [place] [address] Eosinophils 0.02 10*3/uL Normal 0.01-0.46 [facility] Comment on above: Performed By: #### 2 [id number] ####[facility] [address] [place] [address] Eosinophils/100 leukocytes 0.2 % Normal 0.0-6.7 [facility] Comment on above: Performed By: #### 2 [id number] ####[facility] [address] Erythrocyte distribution width Auto Ratio (RBC) 12.4 % Normal 12.0-15.4 [facility] Comment on above: Performed By: #### 2 [id number] ####[address] [address] Erythrocytes (RBC) 5.09 10*6/uL Normal 4.08-6.37 [facility] Comment on above: Performed By: #### 2 344155 ####[address] [address] Erythrocytes (RBC) 0.0 /100{WBCs} Normal [facility] Comment on above: Performed By: #### 2 [id number] ####[address] [address] Erythrocytes (RBC) 0.00 10*3/uL Normal [facility] Healthcare Comment on above: Performed By: #### 2 389139 ####[address] [address] Hematocrit (HCT) 46.4 % Normal 38.4-54.9 [facility] Healthcare Comment on above: Performed By: #### 2 166868 ####[address] [address] Hemoglobin mass conc (Bld) 16.4 g/dL Normal 12.8-17.7 [facility] Healthcare Comment on above: Performed By: #### 2 364212 ####[address] [address] Imm Grans Absolute 0.03 10*3/uL Normal 0.00-0.21 [facility] Healthcare Comment on above: Performed By: #### 2 686807 ####[address] [address] Immature granulocytes #/vol (Bld) 0.3 % Normal [facility] Healthcare Comment on above: Performed By: #### 2 [id number] ####[address] [address] Lymphocytes 1.89 10*3/uL Normal 0.40-2.84 [facility] Comment on above: Performed By: #### 2 497895 ####[facility] Bbj[address] [facility] [place] [address] Lymphocytes/100 leukocytes 19.5 % Normal 9.4-41.1 [facility] Healthcare Comment on above: Performed By: #### 2 [id number] ####[facility] Rjq9[address] [facility] [place] [address] MCH 32.2 pg Normal 27.5-32.9 [facility] Healthcare Comment on above: Performed By: #### 2 048986 ####[facility] Jex[address] [facility] [place] [address] MCHC mass conc (RBC) 35.3 g/dL Normal 30.5-35.4 [facility] Comment on above: Performed By: #### 2 237858 ####[facility] Ajc[address] [facility] [place] [address] MCV 91.2 fL Normal 83.3-98.2 [facility] Healthcare Comment on above: Performed By: #### 2 179944 ####[facility] Xbz[address] [facility] [place] [address] Monocytes 0.42 10*3/uL Normal 0.25-1.33 [facility] Healthcare Comment on above: Performed By: #### 2 713516 ####[facility] Ruv[address] [facility] [place] [address] Monocytes/100 leukocytes 4.3 % Normal 3.0-16.2 [facility] Healthcare Comment on above: Performed By: #### 2 589715 ####[facility] Xqb7[address] [facility] [place] [address] Neutrophils 7.27 10*3/uL Normal 2.22-7.53 [facility] Comment on above: Performed By: #### 2 832290 ####[facility] Pac[address] [facility] [place] [address] Neutrophils/100 leukocytes 75.3 % Normal 46.2-79.1 [facility] Comment on above: Performed By: #### 2 898031 ####[facility] Spw8[address] [facility] [place] [address] Platelet mean volume (PMV) 10.3 fL Normal 9.9-12.1 [facility] Comment on above: Performed By: #### 2 044306 ####[facility] S[address] [place] [address] Platelets 202 10*3/uL Normal 155-404 [facility] Comment on above: Performed By: #### 2 015577 ####[facility] Ekg[address] [place] [address] RDW SD 42.0 fL Normal 39.3-48.6 [facility] Comment on above: Performed By: #### 2 508418 ####[facility] [address] [place] [address] WBC (Leukocytes) 9.7 10*3/uL Normal 4.2-11.0 [facility] Comment on above: Performed By: #### 2 316325 ####[facility] [address] [place] [address] CHEST SINGLE VIEW PORT PA OR APon 12-01-2017 CHEST SINGLE VIEW PORT PA OR AP DATE OF EXAM: Dec 01 2017 4:34PMCLINICAL HISTORY/ Name: DAVID PHELANTUDY:CHEST SINGLE VIEW PORT PA OR AP; 12/01/2017 4:34 pmINDICATION:Non Trauma.COMPARISON:Chest x-ray 01/18/2012CCESSION NUMBER(S):[id number] CLINICIAN:YARELY SUERODINGS:The lungs appear clear. No pleural effusion. Normal heart size, mediastinum, ramirez, and pulmonary vasculature. There is slight posttraumatic deformity of the left 5th and 6th ribs which appear grossly healed.CONCLUSION: IMPRESSION:No active disease in the chest. Normal [facility] CKMBon 12-01-2017 CKMB 6.5 ng/mL Normal [facility] Comment on above: Result Comment: CKMB <7 AND CKMBI <4% :NEGATIVECKMB <7 AND CKMBI >4% :EQUIVOCALCKMB >=7 AND CKMBI <4% :EQUIVOCALCKMB >=7 AND CKMBI >4% :POSITIVE Performed By: #### 3 616247 ####[facility] [address] [place] [address] CKMB Indexon 12-01-2017 CKMB 1.8 % Normal [facility] Comment on above: Performed By: #### 3 051191 ####[facility] [address] [place] [address] Comprehensive Metabolic Pane samia 12-01-2017 Alanine aminotransferase (ALT) 30 U/L Normal 10-52 [facility] Comment on above: Performed By: #### 1 247105 ####[facility] Nvf[address] [facility] [place] [address] Albumin 5.1 g/dL High 3.4-5.0 [facility] Comment on above: Performed By: #### 1 856215 ####[facility] Npw[address] [facility] [place] [address] Albumin/Globulin Ratio 2.0 {ratio} Normal 0.9-2.4 [facility] Comment on above: Performed By: #### 1 868649 ####[facility] Ukg[address] [facility] [place] [address] Alkaline phosphatase (ALP) 70 U/L Normal 45-117 [facility] Comment on above: Performed By: #### 1 117315 ####[facility] [address]bm[address] [place] [address] Anion gap 18 mmol/L Normal 10-20 [facility] Comment on above: Performed By: #### 1 215623 ####[facility] Hgl[address] [facility] [place] [address] Aspartate aminotransferase (AST) 35 U/L Normal 13-39 [facility] Comment on above: Performed By: #### 1 841431 ####[facility] Akh[address] [facility] [place] [address] Bicarbonate (HCO3) 24 mmol/L Normal 21-32 [facility] Comment on above: Performed By: #### 1 581350 ####[facility] X[address] [place] [address] Bilirubin (total) 0.7 mg/dL Normal 0.0-1.2 [facility] Comment on above: Performed By: #### 1 257092 ####[facility] [address] [place] [address] BUN/Creatinine Ratio 9 mg/mg Normal 5-25 [facility] Comment on above: Performed By: #### 1 973235 ####[facility] [address] [place] [address] Calcium 9.1 mg/dL Normal 8.6-10.3 [facility] Comment on above: Performed By: #### 1 839571 ####[facility] [address] [place] [address] Chloride 101 mmol/L Normal 98-107 [facility] Healthcare Comment on above: Performed By: #### 1 706285 ####[facility] [address] [place] [address] Creatinine 0.87 mg/dL Normal 0.50-1.30 [facility] Comment on above: Performed By: #### 1 578598 ####[facility] [address] [place] [address] eGFR (MDRD) mL/min/{1.73_m2} Normal [facility] Comment on above: Result Comment: Inte rpretation for Chronic Kidney Disease:Stages 1&2 >60 Healthy or potential kidney damage.Mild decrease of GFR.Stage 3 30-59 Moderate decrease of GFR.Stage 4 15-29 Severe decrease of GFR.Stage 5 <15 Kidney failure or on dialysis. Performed By: #### 1 506057 ####[facility] [address] [place] [address] Glucose mass conc 90 mg/dL Normal 70-100 [facility] Comment on above: Performed By: #### 1 308755 ####[facility] [address] [place] [address] Potassium molar conc 4.0 mmol/L Normal 3.5-5.1 [facility] Comment on above: Performed By: #### 1 031273 ####[facility] Zuc[address] [place] [address] Protein 7.6 g/dL Normal 6.4-8.2 [facility] Comment on above: Performed By: #### 1 578990 ####[facility] [address] [place] [address] Sodium 139 mmol/L Normal 136-145 [facility] Comment on above: Performed By: #### 1 914090 ####[facility] [address] [place] [address] Urea nitrogen 8 mg/dL Normal 6-23 [facility] Comment on above: Performed By: #### 1 473090 ####[facility] [address] [place] [address] Creatine Kinaseon 12-01-2017 Creatine kinase (CK) 362 U/L High 0-325 [facility] Comment on above: Performed By: #### 3 556821 ####[facility] [address] [place] [address] Drugs of Abuse, Urine(7)on 0 12-01-2017 Amphetamines/Metamph etamines, Urine Not Detected Normal [facility] Comment on above: Performed By: #### 3 393974 ####[facility] [address] [place] [address] Barbiturates, Urine Not Detected Normal [facility] Comment on above: Performed By: #### 3 413251 ####[facility] [address] [place] [address] Benzodiazepines, Urine Not Detected Normal [facility] Comment on above: Performed By: #### 3 735406 ####[facility] [address] [place] [address] Cannabinoids, Urine Not Detected Normal [facility] Comment on above: Performed By: #### 3 894415 ####[facility] [address] [place] [address] Cocaine, Urine Detected Abnormal [facility] Comment on above: Performed By: #### 3 683585 ####[facility] [address] [place] [address] Methadone, Urine Not Detected Normal [facility] Comment on above: Performed By: #### 3 40205 ####[facility] [address] [place] [address] Opiates, Urine Not Detected Normal [facility] Comment on above: Performed By: #### 3 800154 ####[facility] [address] [place] [address] PCP, Urine Not Detected Normal [facility] Comment on above: Result Comment: Urin e toxicology screen results are to be used for medicalpurposes only. It is recommended that any result reportedas Detected be confirmed by a more specific alternativechemical method.Drug Analyzed Cutoff Concentration(ng/mL)Barbiturates 200Benzodiazepines 200Cocaine 150Opiates 300Amphetamines 500Cannabinoids 50Methadone 150PCP 25 Performed By: #### 3 [id number] ####[facility] [address] [place] [address] Magnesiumon 12-01-2017 Magnesium 2.1 mg/dL Normal 1.6-2.4 [facility] Comment on above: Performed By: #### 1 541236 ####[address] [address] Partial Thromboplastin Timeo n 12-01-2017 aPTT 28.1 s Normal 25.0-36.0 [facility] Comment on above: Result Comment: JENNIFER HORNER NOTE NEW REFERENCE RANGE EFFECTIVE 2017.The APTT is no longer used for monitoringUnfractionated Heparin Therapy.For monitoring Heparin Therapy, use theHeparin Assay. Performed By: #### 3 [id number] ####[facility] [address] [place] [address] Prothrombin Timeon 8 INR Coag RelTime (PPP) 0.97 {INR} Normal 0.90-1.10 [facility] Comment on above: Result Comment: PLEJuan Pablo HORNER NOTE NEW REFERENCE RANGE EFFECTIVE 2017 Performed By: #### 3 407037 ####[facility] [address] [place] [address] Prothrombin time (PT) Coag time (PPP) 10.8 s Normal 9.8-12.7 [facility] Comment on above: Result Comment: JENNIFER HORNER NOTE NEW REFERENCE RANGE EFFECTIVE 2017 Performed By: #### 3 [id number] ####[facility] U[address] [place] [address] Troponinon 12-01-2017 Troponin I.cardiac mass conc ng/mL Normal 0.000-0.040 [facility] Comment on above: Result Comment: <0.0 4 : Negative0.04 - 0.50 : Possible Cardiac Damage>0.50 : Consistent with Cardiac Damage Performed By: #### 1 [id number] ####[facility] [address] [place] [address] Urinalysis with Reflex Cultu reon 12-01-2017 Ascorbic Acid Negative Normal Negative [facility] Comment on above: Performed By: #### U ARFX ####[facility] [address] [place] [address] Automated Urine Microscopy Not indicated Normal [facility] Comment on above: Performed By: #### U ARFX ####[facility] [address] [place] [address] Bilirubin Ql (U) Negative Normal Negative [facility] Comment on above: Performed By: #### U ARFX ####[facility] Kbt[address] [facility] [place] [address] Blood Negative Normal Negative [facility] Comment on above: Performed By: #### U ARFX ####[facility] Grk[address] [facility] [place] [address] Glucose mass conc Negative Normal Negative [facility] Comment on above: Performed By: #### U ARFX ####[facility] Ygg[address] [facility] [place] [address] Protein Negative Normal Negative [facility] Comment on above: Performed By: #### U ARFX ####[facility] Oxn[address] [facility] [place] [address] Urine, appearance Clear Normal Clear [facility] Comment on above: Performed By: #### U ARFX ####[facility] Qlr[address] [facility] [place] [address] Urine, color Straw Normal [facility] Comment on above: Performed By: #### U ARFX ####[facility] Fzy[address] [facility] [place] [address] Urine, ketones presence Negative Normal Negative [facility] Comment on above: Performed By: #### U ARFX ####[facility] [address] [place] [address] Urine, nitrite presence Negative Normal Negative [facility] Comment on above: Performed By: #### U ARFX ####[facility] W[address] [place] [address] Urine, pH 5.0 [pH] Normal 5.0-9.0 [facility] Comment on above: Performed By: #### U ARFX ####[facility] [address] [place] [address] Urine, specific gravity 1.004 Normal 1.003-1.035 [facility] Comment on above: Performed By: #### U ARFX ####[facility] [address] [place] [address] Urine, urobilinogen <2.0 Normal Negative [facility] Comment on above: Performed By: #### U ARFX ####[facility] [address] [place] [address] WBC (Leukocytes) Negative Normal Negative [facility] Comment on above: Performed By: #### U ARFX ####[facility] [address] [place] [address] No Panel Information [facility] Vital Signs Date Time Vital Sign Value Performing Clinician Facility 01-21-2025 06:00-0400 Body temperature 96.8 [degF] Harman Payan MD Work Phone: [facility] 01-21-2025 06:00-0400 Diastolic blood pressure 78 mm[Hg] Harman Payan MD Work Phone: [facility] 01-21-2025 06:00-0400 Heart rate 72 /min Harman Payan MD Work Phone: [facility] 01-21-2025 06:00-0400 Respiratory rate 18 /min Harman Payan MD Work Phone: [facility] 01-21-2025 06:00-0400 SaO2% (BldA) [Mass fraction] 94 % Harman Payan MD Work Phone: [facility] 01-21-2025 06:00-0400 Systolic blood pressure 112 mm[Hg] Harman Payan MD Work Phone: [facility] 01-20-2025 23:20-0400 Body height 182.9 cm Harman Payan MD Work Phone: [facility] 01-20-2025 23:20-0400 Body mass index (BMI) [Ratio] 24.41 kg/m2 Harman Payan MD Work Phone: [facility] 01-20-2025 23:20-0400 Body weight 81.65 kg Harman Payan MD Work Phone: [facility] 04-11-2023 11:04-0500 SaO2% (BldA) [Mass fraction] 95 % Thanh Magallanes MD Work Phone: [facility] 04-11-2023 07:28-0500 Body temperature 98.2 [degF] Thanh Magallanes MD Work Phone: [facility] 04-11-2023 07:28-0500 Diastolic blood pressure 88 mm[Hg] Thanh Magallanes MD Work Phone: [facility] 04-11-2023 07:28-0500 Heart rate 66 /min Thanh Magallanes MD Work Phone: [facility] 04-11-2023 07:28-0500 Respiratory rate 16 /min Thanh Magallanes MD Work Phone: [facility] 04-11-2023 07:28-0500 Systolic blood pressure 150 mm[Hg] Thanh Magallanes MD Work Phone: [facility] 04-09-2023 12:00-0500 Body height 184 cm Thanh Magallanes MD Work Phone: [facility] 04-09-2023 12:00-0500 Body mass index (BMI) [Ratio] 23.95 kg/m2 Thanh Magallanes MD Work Phone: [facility] 04-09-2023 12:00-0500 Body weight 81.1 kg Thanh Magallanes MD Work Phone: [facility] Encounters Encounter Date Encounter Type Care Provider Facility Start: 04-29-2025 ambulatory Zebulun Beam VSC Facili ty:[facility] Start: 04-01-2025 End: 04-01-2025 ambulatory Zebulun Beam VSC Facility:[facility] Start: 01-20-2025 End: 01-21-2025 Emergency department patient visit Harman Payan MD Work Phone: [facility] Emergency Medicine Comment on above: Fall, initial encoun ter (Primary Dx); Syncope, unspecified syncope type; Contusion of rib on right side, initial encounter Start: 05-12-2023 End: 05-15-2023 ambulatory [facility] Start: 04-04-2023 End: 04-04-2023 Subsequent hospital visit by physician Sena Dunlapv1 [facility] Start: 04-04-2023 End: 04-11-2023 Evaluation and management of inpatient Thanh Magallanes MD Work Phone: [facility] 8 Cardiac Intensive Care Comment on above: Closed fracture of m ultiple ribs of left side with delayed healing, subsequent encounter (Primary Dx); Fall, initial encounter; Closed fracture of multiple ribs of left side, initial encounter; Lumbar disc herniation; Hypokalemia; Closed fracture of one rib, unspecified laterality, initial encounter Start: 11-06-2022 Telephone encounter Lilliana Kate DO Work Phone: Ophthalmology Comment on above: Results Start: 08-16-2022 Telephone encounter Lilliana Kate DO Work Phone: Ophthalmology Comment on above: Results Start: 08-15-2022 ambulatory DINO LINDSAY Facility :[facility] Start: 08-02-2022 End: 08-03-2022 ambulatory ROSALINDA PINEDA Facility:[facility] Start: 08-01-2022 End: 08-01-2022 ambulatory Bruna Capellan [facility] Work Phone: [facility] Comment on above: Vision loss, bilater al; Cecocentral scotoma, bilateral Start: 08-01-2022 End: 08-01-2022 Telemedicine consultation with patient Bruna Capellan LG Work Phone: [facility] Start: 07-25-2022 End: 07-25-2022 ambulatory LILLIANA KATE Facility:[facility] Start: 07-25-2022 End: 07-25-2022 ambulatory LILLIANA KATE Facility:[facility] Start: 07-25-2022 End: 07-25-2022 Patient encounter procedure Lilliana Kate DO Work Phone: Ophthalmology Comment on above: Vision loss, bilater al (Primary Dx); Cecocentral scotoma, bilateral; Katlyn's hereditary optic neuropathy Start: 07-15-2022 End: 07-18-2022 ambulatory [facility] Start: 07-09-2022 End: 07-12-2022 ambulatory [facility] [place] Start: 07-09-2022 End: 07-11-2022 Subsequent hospital visit by physician [facility] Comment on above: Arrived Compensatory lobar h yperplasia of liver; Liver dysfunction Complaining of cough Start: 07-02-2022 Telephone encounter Lilliana Kate DO Work Phone: Ophthalmology Comment on above: Appointment Start: 06-26-2022 End: 06-26-2022 ambulatory ROBIN MARTINEZ Facility:[facility] Start: 06-26-2022 End: 06-26-2022 Patient encounter procedure Robin Martinez OD Work Phone: Ophthalmology Comment on above: Blurred vision (Prim darcy Dx); Vision loss, bilateral; Dry eye syndrome of bilateral lacrimal glands Start: 06-17-2022 End: 01-16-2023 Emergency department patient visit ESTIVEN ANTOINE [facility] Start: 12-01-2017 End: 12-01-2017 Emergency department patient visit NO FAMILY DOCTOR NO FAMILY DOCTOR Facility:[facility] Procedures Date Procedure Procedure Detail Performing Clinician Start: 01-21-2025 Ecg routine ecg w/le ast 12 lds trcg only w/o i&r Harman Payan MD Work Phone: Start: 01-21-2025 Ecg routine ecg w/le ast 12 lds trcg only w/o i&r Harman Payan MD Work Phone: Start: 01-21-2025 Assay of lactate Dionisio Payan MD Work Phone: Start: 01-21-2025 Radiologic exam ches t single view Harman Payan MD Work Phone: Start: 01-21-2025 Ecg routine ecg w/le ast 12 lds trcg only w/o i&r Harman Payan MD Work Phone: Start: 01-20-2025 Ct thorax w/contrast material Harman Payan MD Work Phone: Start: 01-20-2025 3d rendering w/interp&postproc diff work station Harman Payan MD Work Phone: Start: 01-20-2025 End: 01-20-2025 Ct cervical spine w/o contrast material Harman Payan MD Work Phone: Start: 01-20-2025 Ct maxillofacial w/o contrast material Harman Payan MD Work Phone: Start: 01-20-2025 Blood typing serolog ic rh (d) Harman Payan MD Work Phone: Start: 01-20-2025 Comprehensive metabo lic panel Harman Payan MD Work Phone: Start: 01-20-2025 Ethanol [Mass/volume ] in Serum or Plasma Harman Payan MD Work Phone: Start: 01-20-2025 [facility] Harman Payan MD Work Phone: Start: 01-20-2025 Troponin I.cardiac p lyla - Serum or Plasma by High sensitivity method Harman Payan MD Work Phone: Start: 04-11-2023 Comprehensive metabo lic panel Xi Werner Dombi PA-C Work Phone: Start: 04-11-2023 Radiologic exam ches t single view Jorge Almodovar PA-C Work Phone: Start: 04-10-2023 PULSE OXIMETRY, SPOT Vanessa yur Almodovar PA-C Work Phone: Start: 04-10-2023 Radiologic exam ches t single view Silvia Hickeyehaus DO Work Phone: Start: 04-10-2023 PULSE OXIMETRY, SPOT Vanessa yur Almodovar PA-C Work Phone: Start: 04-10-2023 Radiologic exam ches t single view Jorge Almodovar PA-C Work Phone: Start: 04-10-2023 PULSE OXIMETRY, SPOT Vanessa yur Almodovar PA-C Work Phone: Start: 04-10-2023 Basic metabolic pane l calcium total Jorge Almodovar PA-C Work Phone: Start: 04-10-2023 PULSE OXIMETRY, SPOT Vanessa yur Almodovar PA-C Work Phone: Start: 04-09-2023 PULSE OXIMETRY, SPOT Vanessa yur Almodovar PA-C Work Phone: Start: 04-09-2023 Radiologic exam ches t single view Jorge Almodovar PA-C Work Phone: Start: 04-09-2023 PULSE OXIMETRY, SPOT Vanessa yur Almodovar PA-C Work Phone: Start: 04-09-2023 PULSE OXIMETRY, SPOT Vanessa yur Almodovar PA-C Work Phone: Start: 04-09-2023 PULSE OXIMETRY, SPOT Vanessa al Almodovar PA-C Work Phone: Start: 04-09-2023 Radiologic exam ches t single view Silvia Juares DO Work Phone: Start: 04-09-2023 PULSE OXIMETRY, CONTINUOUS Francisco Cantrell MD Work Phone: Start: 04-09-2023 End: 04-09-2023 Repair lung hernia through chest wall Isaac Cox MD Work Phone: Start: 04-09-2023 Basic metabolic pane l calcium total Silvia Juares DO Work Phone: Start: 04-09-2023 EXTRA TUBES Chris kwan MD Work Phone: Start: 04-09-2023 SST TOP Chris kwan MD Work Phone: Start: 04-08-2023 Radiologic exam ches t single view Silvia Juares DO Work Phone: Start: 04-08-2023 Basic metabolic pane l calcium total Silvia Juares DO Work Phone: Start: 04-08-2023 EXTRA TUBES Chris kwan MD Work Phone: Start: 04-08-2023 SST TOP Chris kwan MD Work Phone: Start: 04-08-2023 VERAB/VERIFY ABORH Tapan cristhian Garcia MD Work Phone: Start: 04-08-2023 Blood typing serolog ic rh (d) Isaac Cox MD Work Phone: Start: 04-08-2023 PREPARE RBC Isaac rizzo MD Work Phone: Start: 04-07-2023 Radiologic exam ches t single view Silvia Juares DO Work Phone: Start: 04-07-2023 Basic metabolic pane l calcium total Silvia Juares DO Work Phone: Start: 04-06-2023 Radiologic exam ches t single view Silvia Juares DO Work Phone: Start: 04-06-2023 End: 04-06-2023 Comprehensive metabolic panel Chris Garcia MD Work Phone: Start: 04-05-2023 Basic metabolic pane l calcium total Chris Garcia MD Work Phone: Start: 04-05-2023 LAVENDER TOP Ant lamas MD Work Phone: Start: 04-04-2023 Drug tst prsmv instr mnt chem analyzers pr date Chris Garcia MD Work Phone: Start: 04-04-2023 EXTRA URINE LIRIANO TUBE D liberty Garcia MD Work Phone: Start: 04-04-2023 Urinalysis complete W Reflex Culture panel - Urine Chris Garcia MD Work Phone: Start: 04-04-2023 Urnls dip stick/tabl et rgnt auto w/o microscopy Chris Garcia MD Work Phone: Start: 04-04-2023 Radiologic exam ches t single view Chris Garcia MD Work Phone: Start: 04-04-2023 Ecg routine ecg w/le ast 12 lds trcg only w/o i&r Silvia Juares DO Work Phone: Start: 04-04-2023 Ct thorax w/contrast material Johanna Rios PA-C Work Phone: Start: 04-04-2023 End: 04-04-2023 Ct cervical spine w/o contrast material Johanna Rios PA-C Work Phone: Start: 04-04-2023 Ct head/brain w/o co ntrast material Johanna Rios PA-C Work Phone: Start: 04-04-2023 End: 04-04-2023 Comprehensive metabolic panel Johanna Rios PA-C Work Phone: Start: 04-04-2023 Ethanol [Mass/volume ] in Serum or Plasma Praneeth Anderson [employer] Work Phone: Start: 04-04-2023 EXTRA TUBES Thanh douglas MD Work Phone: Start: 04-04-2023 SST TOP Thanh douglas MD Work Phone: Start: 04-04-2023 Radiologic exam ches t single view Johanna Rios PA-C Work Phone: Start: 07-25-2022 Visual field xm uni/ bi w/interp extended exam Lilliana Willis Humble DO Work Phone: Start: 07-09-2022 Comprehensive metabo lic panel Mark Sharpe MD Work Phone: Start: 07-09-2022 Lipid panel Mark coleman MD Work Phone: Start: 07-09-2022 Us abdominal real ti me w/image limited Mark Sharpe MD Work Phone: Start: 06-26-2022 End: 06-26-2022 Visual field xm uni/bi w/interp extended exam Robin Martinez NIR Work Phone: Plan of Treatment Date Care Activity Detail Author Start: 06-25-2031 DTaP/Tdap/Td vaccine (2 - Td or Tdap) DTaP/Tdap/Td vaccine (2 - Td or Tdap) [facility] Start: 06-25-2031 DTaP/Tdap/Td Vaccine s (2 - Td or Tdap) DTaP/Tdap/Td Vaccines (2 - Td or Tdap) [facility] Start: 07-09-2027 Lipid panel Lipids [facility] Start: 2026 Zoster Vaccines (1 of 2) Zoste r Vaccines (1 of 2) [facility] Start: 07-25-2025 DIABETES SCREEN DIABETES SCREEN [facility] Start: 06-05-2025 LIPID SCREEN LIPID SCREEN [facility] Start: 01-31-2025 Influenza vaccination Influenza Vacc ine (#1) [facility] Start: 08-12-2024 DIABETES SCREEN DIABETES SCREEN [facility] Start: 02-01-2024 COVID-19 Vaccine ( season) COVID-19 Vaccine ( season) [facility] Start: 05-01-2023 End: 05-01-2023 Patient encounter procedure 05/01/2023 11:00 AM EST Office Visit [facility] [address] [place] [address] [place] [id number] [place] [address] [facility] Start: 01-31-2023 Influenza vaccination [facility] Start: 08-01-2022 End: 10-01-2022 MISC SEND OUT TST 1 MISC SEND OUT TST 1 Lab Routine Vision loss, bilateral Cecocentral scotoma, bilateral Expected: 08/01/2022, Expires: 10/01/2022 [facility] Work Phone: Comment on above: Expected: 08/01/2022 , Expires: 10/01/2022 Start: 07-25-2022 End: 09-24-2022 AQUAPORIN-4 ANTIBODY,IGG BY CBA-IFA WITH REFLEX TO TITER,SERUM [facility] Work Phone: Comment on above: Expected: 07/25/2022 , Expires: 09/24/2022 Start: 07-25-2022 End: 09-24-2022 Cobalamin (Vitamin B12) [Mass/volume] in Serum or Plasma [facility] Work Phone: Comment on above: Expected: 07/25/2022 , Expires: 09/24/2022 Start: 07-25-2022 End: 09-24-2022 Homocysteine [Moles/volume] in Serum or Plasma [facility] Work Phone: Comment on above: Expected: 07/25/2022 , Expires: 09/24/2022 Start: 07-25-2022 End: 09-24-2022 Methylmalonate [Moles/volume] in Serum or Plasma [facility] Work Phone: Comment on above: Expected: 07/25/2022 , Expires: 09/24/2022 Start: 07-25-2022 End: 09-24-2022 [id number] FACS,SERUM [facility] Work Phone: Comment on above: Expected: 07/25/2022 , Expires: 09/24/2022 Start: 07-25-2022 End: 09-24-2022 SYPHILIS TOTAL W/REFLEX [facility] Work Phone: Comment on above: Expected: 07/25/2022 , Expires: 09/24/2022 Start: 07-15-2022 End: 07-15-2022 Patient encounter procedure 07/15/2022 Appointment Radiology [facility] Start: 01-31-2022 Influenza vaccination INFLUENZA (#1) [facility] Start: 12-31-2021 Influenza vaccination Flu vaccine (# 1) [facility] Start: 2021 COLOGUARD (FIT-DNA) COLOGUARD (FIT-D NA) [facility] Start: 2021 Colonoscopy COLONOSCOPY [facility] Start: 2021 COLORECTAL CANCER SCREENING COLORECTAL CANCER SCREENING [facility] Start: [address] COLONOGRAPHY [facility] Start: 2021 FECAL OCCULT BLOOD FECAL OCCULT BLOO D [facility] Start: 2021 Screening for malign ant neoplasm of colon [facility] Start: 2021 SIGMOIDOSCOPY [facility] Start: 02-23-2021 COVID-19 VACCINE (2 - Booster for Moderna series) COVID-19 VACCINE (2 - Booster for Moderna series) [facility] Start: 01-26-2021 COVID-19 VACCINE (2 - Moderna series) COVID-19 VACCINE (2 - Moderna series) [facility] Start: 2016 Lipid panel Lipids [facility] Start: 1995 Hepatitis A Vaccines (1 of 2 - Risk 2-dose series) Hepatitis A Vaccines (1 of 2 - Risk 2-dose series) [facility] Start: 1995 Hepatitis B Vaccines (1 of 3 - 19+ 3-dose series) Hepatitis B Vaccines (1 of 3 - 19+ 3-dose series) [facility] Start: 1995 Pneumococcal Vaccine : Pediatrics and At-Risk Adult Patients (1 of 2 - PCV) Pneumococcal Vaccine: Pediatrics and At-Risk Adult Patients (1 of 2 - PCV) [facility] Start: 1995 Urine microalbumin profile DTAP,TDAP,TD (1 - Tdap) [facility] Start: 1994 Hepatitis C screening B [facility] Start: 1994 HIV SCREENING HIV SCREENING [facility] Start: 1991 HIV screening HIV screen [facility] Start: 1988 Depression Screen Depression Screen [facility] Start: 1982 PNEUMOCOCCAL (1 - PCV) PNEUMOCOCCAL (1 - PCV) [facility] Start: 1982 Pneumococcal 0-64 ye ars Vaccine (1 - PCV) Pneumococcal 0-64 years Vaccine (1 - PCV) [facility] Start: 1982 Pneumococcal Vaccine : Pediatrics (0 to 5 Years) and At-Risk Patients (6 to 64 Years) (1 - PCV) Pneumococcal Vaccine: Pediatrics (0 to 5 Years) and At-Risk Patients (6 to 64 Years) (1 - PCV) [facility] Start: 1977 MMR Vaccines (1 of 1 - Standard series) MMR Vaccines (1 of 1 - Standard series) [facility] Start: 01-07-1977 COVID-19 Vaccine (#1) COVID-19 Vacci ne (#1) [facility] Start: 1976 HEPATITIS B (1 of 3 - 3-dose series) HEPATITIS B (1 of 3 - 3-dose series) [facility] Start: 1976 Hepatitis B Vaccines (1 of 3 - 3-dose series) Hepatitis B Vaccines (1 of 3 - 3-dose series) [facility] Start: 1976 HIV screening HIV Screening [facility] Start: 1976 Lipid panel Lipid Panel [facility] Start: 1976 Screening for malign ant neoplasm of colon [facility] Start: 1976 Yearly Adult Physical Yearly Adult P hysical [facility] End: 04-14-2023 Basic metabolic 2000 panel - Serum or Plasma Basic metabolic panel Lab Routine Morning draw (Lab) for 5 Occurrences starting 04/10/2023 until 04/14/2023, 1 completed [facility] Work Phone: Comment on above: Morning draw (Lab) f or 5 Occurrences starting 04/10/2023 until 04/14/2023, 1 completed End: 04-14-2023 CBC panel - Blood by Automated count CBC Lab Routine Morning draw (Lab) for 5 Occurrences starting 04/10/2023 until 04/14/2023, 2 completed [facility] Work Phone: Comment on above: Morning draw (Lab) f or 5 Occurrences starting 04/10/2023 until 04/14/2023, 2 completed End: 04-04-2023 ECG 12 lead [facility] Work Phone: Comment on above: Once for 1 Occurrenc es starting 04/04/2023 until 04/04/2023 ECG 12 lead ECG 12 lead ECG STAT 04/04/2023 8:55 AM EDT [facility] Work Phone: End: 04-09-2023 ECG 12 lead [facility] Work Phone: Comment on above: Once for 1 Occurrenc es starting 04/09/2023 until 04/09/2023 ECG 12 lead ECG 12 lead ECG STAT 01/21/2025 3:37 AM EDT [facility] Work Phone: ECG 12 lead ECG 12 lead ECG STAT 01/21/2025 5:44 AM EDT [facility] Work Phone: Electrocardiogram, 12-lead [facility] Work Phone: Comment on above: As needed until disc ontinued starting 01/20/2025 Electrocardiogram, 12-lead PRN ACS symptoms Electrocardiogram, 12-lead PRN ACS symptoms ECG Routine As needed until discontinued starting 04/04/2023 [facility] Work Phone: Comment on above: As needed until disc ontinued starting 04/04/2023 End: 04-04-2023 Extra Tubes [facility] Work Phone: Comment on above: Once (Lab) for 1 Occ urrences starting 04/04/2023 until 04/04/2023 End: 04-08-2023 Extra Tubes Extra Tubes Lab Routine Once (Lab) for 1 Occurrences starting 04/08/2023 until 04/08/2023 [facility] Work Phone: Comment on above: Once (Lab) for 1 Occ urrences starting 04/08/2023 until 04/08/2023 End: 01-20-2025 Extra Tubes [facility] Work Phone: Comment on above: Once (Lab) for 1 Occ urrences starting 01/20/2025 until 01/20/2025 Glucose [Mass/volume ] in Serum or Plasma POCT Glucose Point of Care Testing - Docked Device Routine As needed (Lab) until discontinued starting 04/09/2023 [facility] Work Phone: Comment on above: As needed (Lab) unti l discontinued starting 04/09/2023 End: 04-09-2023 Incentive spirometry Incentive spirometry Respiratory Care Routine Once for 1 Occurrences starting 04/09/2023 until 04/09/2023 [facility] Work Phone: Comment on above: Once for 1 Occurrenc es starting 04/09/2023 until 04/09/2023 End: 04-04-2023 Incentive spirometry Instruct Incentive spirometry Instruct Respiratory Care Routine Once for 1 Occurrences starting 04/04/2023 until 04/04/2023 [facility] Work Phone: Comment on above: Once for 1 Occurrenc es starting 04/04/2023 until 04/04/2023 Lavender Top Lavender Top Lab Routine 04/05/2023 1:01 AM EDT [facility] Work Phone: Lavender Top Lavender Top Lab Routine 01/20/2025 11:20 PM EDT [facility] Work Phone: End: 04-14-2023 Magnesium [Mass/volume] in Serum or Plasma Magnesium Lab Routine Morning draw (Lab) for 5 Occurrences starting 04/10/2023 until 04/14/2023, 2 completed [facility] Work Phone: Comment on above: Morning draw (Lab) f or 5 Occurrences starting 04/10/2023 until 04/14/2023, 2 completed MISC SEND OUT TST 1 MISC SEND OU T TST 1 Lab Routine Vision loss, bilateral Cecocentral scotoma, bilateral 08/02/2022 10:46 AM EST [facility] Work Phone: End: 01-20-2025 Pulse oximetry, continuous Pulse oximetry, continuous Respiratory Care STAT Continuous until discontinued starting 01/20/2025 [facility] Work Phone: Comment on above: Continuous until dis continued starting 01/20/2025 Pulse oximetry, spot Pulse oxime try, spot Respiratory Care Routine Every 4 hours until discontinued starting 04/09/2023, 13 completed [facility] Work Phone: Comment on above: Every 4 hours until discontinued starting 04/09/2023, 13 completed End: 04-14-2023 XR Chest Single view XR chest 1 view Imaging Routine Daily for 5 Occurrences starting 04/10/2023 until 04/14/2023, 2 completed [facility] Work Phone: Comment on above: Daily for 5 Occurren vijay starting 04/10/2023 until 04/14/2023, 2 completed End: 07-09-2022 XR CHEST STANDARD (2 VW) DEVAN ANDINO [facility] Work Phone: Comment on above: 1 Occurrences starti ng 07/09/2022 until 07/09/2022 [facility] Payers Date Payer Category Payer Self-pay 2024 Managed Care (Private) [facility] [id number] 2024 Unknown [id number] 2020 Medicaid [id number] 2020 Medicaid [id number] 2014 Medicaid [id number] 1976 Unknown [id number] 1976 Unknown [id number] 1976 Unknown [id number] 1976 Unknown [id number] 1976 Unknown [id number] 1976 Unknown [id number] 182 1976 Unknown [id number] Unknown [id number] Unknown [id number] Social History Date Type Detail Facility Start: 06-02-1997 End: 04-04-2023 Tobacco smoking status NHIS Smokes tobacco daily [facility] Start: 06-02-1997 History of tobacco use Cigarette Smoker [facility] Start: 06-26-2022 End: 04-06-2023 Cigarettes smoked current (pack per day) - Reported 0.5 [facility] Start: 06-26-2022 End: 04-04-2023 Tobacco use and exposure Smokeless tobacco non-user [facility] Start: 06-26-2022 End: 04-04-2023 Alcohol intake Current drinker of alcohol (finding) [facility] Start: 1975 Sex Assigned At Not on file [facility] Start: 04-04-2023 End: 04-06-2023 Alcohol Use Disorder Identification Test - Consumption [AUDIT-C] [facility] Work Phone: How often to you hav e a drink containing alcohol? 2-4 times a month [facility] Work Phone: How many standard dr inks containing alcohol do you have on a typical day? 1 or 2 [facility] Work Phone: How often do you hav e 6 or more drinks on 1 occasion? Less than monthly [facility] Work Phone: Start: 03-25-2023 End: 04-04-2023 Exposure to SARS-CoV-2 (event) Not sure [facility] Start: 04-26-2022 How hard is it for you to pay for the very basics like food, housing, medical care, and heating Not hard at all [facility] In the past 12 month s, was there a time when you were not able to pay the mortgage or rent on time? 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 ARRIVED VIA EMS TO ED FROM HOME FOR FALL AT 0800, WENT TO WORK, HAD A FEW BEERS, FELL AGAIN, + LOC, -THINNERS. [facility] Work Phone: 01-20-2025 Emergency department Note PT. ARRIVED VIA EMS TO ED FROM HOME FOR FALL AT 0800, WENT TO WORK, HAD A FEW BEERS, FELL AGAIN, + LOC, -THINNERS. documented in this encounter [facility] Work Phone: 01-29-2024 Note HNO ID: [id number] Author: ANIVAL GARZA MD Service: Hospital Medicine Author Type: Physician Type: Progress Notes Filed: 01/29/2024 13:56 Note Text: Documentation Query Please clarify status of the alcohol induced acute pancreatitis Alcohol induced acute pancreatitis Ruled In This document will become part of the patient's medical record. [facility] 01-29-2024 Note HNO ID: [id number] Author: ANIVAL GARZA MD Service: Hospital Medicine Author Type: Physician Type: Progress Notes Filed: 01/29/2024 13:56 Note Text: Documentation Query Please specify depression Major depressive disorder, recurrent: mild This document will become part of the patient's medical record. [facility] 01-28-2024 Note HNO ID: [id number] Author: ALLYN JOHNSTON RN Service: Nursing Author Type: Registered Nurse Type: Nursing Progress Note Filed: 01/28/2024 23:42 Note Text: This RN has assumed care of this pt at 2330. [facility] 01-28-2024 Note HNO ID: [id number] Author: ANIVAL GARZA MD Service: Hospital Medicine Author Type: Physician Type: Progress Notes Filed: 01/28/2024 13:42 Note Text: DEPARTMENT OF HOSPITAL MEDICINE PROGRESS NOTE SERVICE DATE: 01/28/2024 SERVICE TIME: 1:36 PM Hospital Medicine/Primary Attending: Anival Garza MD NIGHT AND WEEKEND COVERAGE: [employer] COVERAGE: Days: [phone], please contact via [employer] Nights: [phone] - 3rd floor: please page Hospitalist night cover [phone] - 4W: please page Hospitalist night cover #[phone] - 5th floor: please page Hospitalist night cover #[phone] - SDU (17:00 - 19:00): Please page #[phone] - SDU (19:00 - 07:00): Please call [facility] at [phone] Subjective INTERVAL HPI: Seen and examined today, he reported improvement in his pain on the left upper quadrant, no nausea or vomiting, no fever or chills, he had a bowel movement, he tolerated clear liquid very well and a request to fully quit. Current Facility-Administered Medications Medication Dose Route Frequency NaCl 0.9% iv flush bag 20 mL INTRAVENOUS PRN fluvoxaMINE 50 mg tab(s) (LUVOX) 50 mg ORAL q 12 H hydrOXYzine HCl 25 mg tab(s) (ATARAX) 25 mg ORAL BID PRN nicotine 14 mg/24 hr 1 Patch (NICODERM) 1 Patch TRANSDERMAL DAILY And nicotine -- REMOVE patch OTHER DAILY And nicotine - verify patch OTHER q 8 H famotidine 20 mg injection (PEPCID) 20 mg INTRAVENOUS BID ondansetron (PF) 4 mg injection (ZOFRAN) 4 mg INTRAVENOUS q 6 H PRN lactated ringers iv infusion 100 mL/hr INTRAVENOUS CONTINUOUS polyethylene glycol 3350 17 g packet 17 g ORAL DAILY bisacodyl 10 mg suppository (DULCOLAX) 10 mg RECTAL DAILY PRN HYDROmorphone 0.5 mg injection (DILAUDID) 0.5 mg INTRAVENOUS q 6 H PRN Objective PHYSICAL EXAM: BP 145/96 Pulse 65 Temp (Src) 97.5 (Oral) Resp 20 Wt 190 lb 14.7 oz (86.6kg) SpO2 96% O2 Therapy: Room Air Physical Exam Performed GENERAL: Alert, well-developed, no acute distress, cooperative. HEAD: Normocephalic, atraumatic EYES: PERRLA, EOMI NECK: No jugulovenous distention, supple LUNGS: Lung sounds clear, no spontaneous cough present. CARDIAC: Normal S1 and S2; no rubs, murmurs, or gallops ABDOMEN: Abdomen soft,, no distention. BS normal x4; minimal LUQ tenderness EXTREMITIES: Extremities normal, no edema NEURO: Alert and oriented x3. Normal cognition and motor function. Sensation intact. PULSES: 2+ radial Lines, Drains, and Airways Line Duration Peripheral 01/26/24 1850 Right Arm 20 Gauge 1 day Peripheral 01/27/24 2330 [facility] Short Right Forearm 22 Gauge <1 day DATA: Diagnostic tests reviewed for today's visit: CBC, Coags, BMP, Mg, Phos Recent Labs 01/28/24 1013 01/27/24 0504 01/26/24 1505 WBC -- 8.80 11.99* HB -- 15.7 17.0 HCT -- 43.9 45.8 PLT -- 189 230 NA 130* 140 140 K -- 4.1 3.0* CHLOR 98 101 99 CO2 22 26 25 BUN 11 13 9 CREAT 0.56* 0.70* 0.67* GLUC 90 73* 93 CA 8.3* 8.4* 9.6 MG 1.9 1.6* -- Assessment/Plan Problem List Assessment AND Plan Pancreatitis Depression Uncomplicated alcohol abuse Hypokalemia Nicotine use disorder, F17.2 Hepatic steatosis Anxiety Acute recurrent pancreatitis Hypomagnesemia HOSPITAL COURSE: Ford Phelan is a 48 year old male presented with past medical history of pancreatitis, depression/anxiety, nicotine and alcohol use who presents with abdominal pain and nausea/vomiting. States symptoms started on Friday. States last drink was ; had beers.Has not been able to keep anything down, tried going to work today. 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 ED workup significant for lipase of [address] imaging showing pancreatitis. Treatment started with IV fluids and pain control. Principal Problem: Pancreatitis Uncomplicated alcohol abuse Assessment AND Plan: -continue supportive care with IVF LR -Zofran for nausea -pain management switched to dilaudid , since pain improved will decrease the dose to 0.5 mg Q6hrs instead of 1 mg Q5hrs, oxy for moderate pain -will advance diet to full liquid, if no pain will advance to soft low fat for dinner . CTAP- IMPRESSION: Interstitial edematous pancreatitis. 1 cm right hepatic lesion for which multiphasic liver MRI is recommended for further characterization. - denies alcohol withdrawal; no need for CIWA at this time, last drink , drinks 3 times/week Active Problems: Depression/Anxiety Assessment AND Plan: - Continue fluvoxamine BID at home, atarax PRN Hypokalemia, resolved Hypomagnesemia ,resolved Assessment AND Plan: - replete as needed, telemetry, AM labs Nicotine use disorder, F17.2 Assessment AND Plan: - nicotine patch - cessation education Hepatic steatosis Assessment AND Plan: - CTAP- IMPRESSION: Interstitial edematous pancreatitis. 1 cm right hepatic lesion for which multiphasic liver MRI is recommended for further characterization. - Outpatient MRI (more content not included)... [facility] 01-27-2024 Note HNO ID: [id number] Author: ANIVAL GARZA MD Service: Hospital Medicine Author Type: Physician Type: Progress Notes Filed: 01/27/2024 16:21 Note Text: DEPARTMENT OF HOSPITAL MEDICINE PROGRESS NOTE SERVICE DATE: 01/27/2024 SERVICE TIME: 4:12 PM Hospital Medicine/Primary Attending: Anival Garza MD NIGHT AND WEEKEND COVERAGE: [employer] COVERAGE: : [phone], please contact via [employer] Nights: - 3rd floor: please page Hospitalist night cover [phone] - 4W: please page CC Hospitalist night cover #[phone] - 5th floor: please page Hospitalist night cover #[phone] - SDU (17:00 - 19:00): Please page #[phone] - SDU (19:00 - 07:00): Please call [facility] at [phone] Subjective INTERVAL HPI: Seen and examined today, he is feeling slightly better today,pain is controlled with pain meds, no nausea or vomiting , no other complains Current Facility-Administered Medications Medication Dose Route Frequency NaCl 0.9% iv flush bag 20 mL INTRAVENOUS PRN fluvoxaMINE 50 mg tab(s) (LUVOX) 50 mg ORAL q 12 H hydrOXYzine HCl 25 mg tab(s) (ATARAX) 25 mg ORAL BID PRN nicotine 14 mg/24 hr 1 Patch (NICODERM) 1 Patch TRANSDERMAL DAILY And nicotine -- REMOVE patch OTHER DAILY And nicotine - verify patch OTHER q 8 H famotidine 20 mg injection (PEPCID) 20 mg INTRAVENOUS BID ondansetron (PF) 4 mg injection (ZOFRAN) 4 mg INTRAVENOUS q 6 H PRN lactated ringers iv infusion 150 mL/hr INTRAVENOUS CONTINUOUS HYDROmorphone 1 mg injection (DILAUDID) 1 mg INTRAVENOUS q 4 H PRN polyethylene glycol 3350 17 g packet 17 g ORAL DAILY bisacodyl 10 mg suppository (DULCOLAX) 10 mg RECTAL DAILY PRN Objective PHYSICAL EXAM: BP 143/88 Pulse 68 Temp (Src) 97.7 (Oral) Resp 18 Wt 190 lb 14.7 oz (86.6kg) SpO2 93% O2 Therapy: Room Air Physical Exam Performed GENERAL: Alert, well-developed, no acute distress, cooperative. HEAD: Normocephalic, atraumatic EYES: PERRLA, EOMI NECK: No jugulovenous distention, supple LUNGS: Lung sounds clear, no spontaneous cough present. CARDIAC: Normal S1 and S2; no rubs, murmurs, or gallops ABDOMEN: Abdomen soft,, no distention. BS normal x4; LUQ tenderness EXTREMITIES: Extremities normal, no edema NEURO: Alert and oriented x3. Normal cognition and motor function. Sensation intact. PULSES: 2+ radial Lines, Drains, and Airways Line Duration Peripheral 01/26/24 1850 Right Arm 20 Gauge <1 day DATA: Diagnostic tests reviewed for today's visit: CBC, Coags, BMP, Mg, Phos Recent Labs 01/27/24 0504 01/26/24 1505 WBC 8.80 11.99* HB 15.7 17.0 HCT 43.9 45.8 PLT 189 230 NA 140 140 K 4.1 3.0* CHLOR 101 99 CO2 26 25 BUN 13 9 CREAT 0.70* 0.67* GLUC 73* 93 CA 8.4* 9.6 MG 1.6* -- Assessment/Plan Problem List Assessment AND Plan Pancreatitis Depression Uncomplicated alcohol abuse Hypokalemia Nicotine use disorder, F17.2 Hepatic steatosis Anxiety Acute recurrent pancreatitis HOSPITAL COURSE: Ford Phelan is a 48 year old male presented with past medical history of pancreatitis, depression/anxiety, nicotine and alcohol use who presents with abdominal pain and nausea/vomiting. States symptoms started on Friday. States last drink was ; had beers.Has not been able to keep anything down, tried going to work today. 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 ED workup significant for lipase of [address] imaging showing pancreatitis. Treatment started with IV fluids and pain control. Principal Problem: Pancreatitis Uncomplicated alcohol abuse Assessment AND Plan: -continue supportive care with IVF LR -Zofran for nausea -pain management switched to dilaudid -will advance diet to clear liquid, if pain worsen will make him NPO CTAP- IMPRESSION: Interstitial edematous pancreatitis. 1 cm right hepatic lesion for which multiphasic liver MRI is recommended for further characterization. - denies alcohol withdrawal; no need for CIWA at this time, last drink , drinks 3 times/week Active Problems: Depression/Anxiety Assessment AND Plan: - Continue fluvoxamine BID at home, atarax PRN Hypokalemia, resolved Hypomagnesemia Assessment AND Plan: - repleted, telemetry, AM labs Nicotine use disorder, F17.2 Assessment AND Plan: - nicotine patch - cessation education Hepatic steatosis Assessment AND Plan: - CTAP- IMPRESSION: Interstitial edematous pancreatitis. 1 cm right hepatic lesion for which multiphasic liver MRI is recommended for further characterization. - Outpatient MRI - will need GI/hepatology follow up outpatient Medication and Non-Pharmacologic VTE Prophylaxis/Anticoagulants 01/26/24 2330 activity - mobilize patient (wv,de) VTE Prophylaxis: low risk, early mobilizing Disposition: Home Plan of care discussed with Provider, RN, Patient SIGNATURE: Eulalia Garza MD PATIENT NAME: Ford Phelan DATE: January 27, 2024 TIME: 4:12 PM [facility] 01-27-2024 Note HNO ID: [id number] Author: RAIZA ENGLE LISW Service: Care Management Author Type: Timber Poisoner Type: Care Mgt Initial Assessment Filed: 01/27/2024 09:11 Note Text: CARE MANAGEMENT: ASSESSMENT AND DISCHARGE PLAN SERVICE DATE: January 27, 2024 SERVICE TIME: 9:07 AM PCP: No primary care provider on file. Primary Contact: Extended Emergency Contact Information Primary Emergency Contact: Letty Hartman Mobile Relation: Friend Secondary Emergency Contact: Beth Conway Mobile Relation: Relative Admission Status: Observation Insurance Provider: FRANCIA MENSAH Discharge Planning requested by: Per Department Practice Potential Transition Plans Home Advance Directives Current Advance Directive: None Manifest Clerk Attempted to Assist with AD Completion: Yes Action: Education Provided Current Living Arrangements and Support Lives with: Alone Type of Residence: Private Residence (House) Does the patient have to climb stairs at home?: Yes Support: Friends/neighbors How do you manage to accomplish the following: Independent: Ambulation;Bathe/Shower;Dress;Me als/Meal Prep;Going to the bathroom;Medication Management;Transportation to appointments/community Current Services/Equipment Current Post-Acute Service(s): None Discharge Planning Patient Goal(s): General wellness, Be able to go home [place] of Choice Explained: [place] of Choice Given: No Reason Not Given: No placements necessary Are you interested in bedside delivery of your medications? Yes Caregiver Assessment: Caregiver is ready, willing and able to meet the patient's needs as recommended by the inter-professional team: No Caregiver needed Transport at Discharge: Transportation Arrangements: Car Needs Prior to Discharge: Needs Prior to Discharge: To Be Determined Post-Acute Discharge Plan: Admit for pancreatitis. Pt lives alone, IPTA. Pt is employed, drives. No DME / home care Pt reports drinking 2-3 d/wk, 4-5 beers. Pt not interested in cessation, declined ETOH resources. Pt denies any safety, financial or social concerns. Friend to transport at d/c. Plan to d/c home w/ no skilled needs SIGNATURE: JUNAID Lemus PATIENT NAME: Ford Phelan DATE: January 27, 2024 TIME: 9:07 AM CONTACT #: [phone] [facility] 01-26-2024 Note HNO ID: [id number] Author: TAJ PALMER RT(R) Service: ? Author Type: Technologist Type: Progress Notes Filed: 01/26/2024 18:59 Note Text: Radiology Service Progress Note PATIENT NAME: Ford Phelan DATE OF SERVICE: January 26, 2024 TIME: 6:59 PM PATIENT IDENTITY VERIFICATION COMPLETED USING TWO (2) IDENTIFIERS: Name and Date of confirmed by patient verbally and Name and Date of confirmed by identification band. FALL SCREENING: Has the patient had 2 falls in the last year or 1 fall with injury or currently using an Ambulatory Assistive Device (Walker, Cane, Wheelchair, Crutches, etc.)? Emergency Room Patient: Screened in ED PATIENT GENDER DATA: Male PATIENT RELEVANT IMPLANT DATA REVIEWED: Not Applicable PATIENT PRESENTS WITH AN IMPLANTABLE OR ATTACHED LABORER CAR BARN: No RADIOLOGY DEPARTMENT: CT; Exam(s) Completed: Abdomen/Pelvis PERIPHERAL IV DATA: Site assessment: Clean,Dry and Intact, Site disposition Left in for next appointment SIGNED BY: RT Tammy(R) January 26, 2024 6:59 PM [facility] 01-26-2024 Note HNO ID: [id number] Author: CHRISTIANE VERONICA RDMS Service: ? Author Type: Technologist Type: Progress Notes Filed: 01/26/2024 17:19 Note Text: Radiology Service Progress Note PATIENT NAME: Ford Phelan DATE OF SERVICE: January 26, 2024 TIME: 5:18 PM PATIENT IDENTITY VERIFICATION COMPLETED USING TWO (2) IDENTIFIERS: Name and Date of confirmed by patient verbally and Name and Date of confirmed by identification band. FALL SCREENING: Has the patient had 2 falls in the last year or 1 fall with injury or currently using an Ambulatory Assistive Device (Walker, Cane, Wheelchair, Crutches, etc.)? Emergency Room Patient: Screened in ED PATIENT GENDER DATA: Male PATIENT RELEVANT IMPLANT DATA REVIEWED: Not Applicable PATIENT PRESENTS WITH AN IMPLANTABLE OR ATTACHED LABORER CAR BARN: No RADIOLOGY DEPARTMENT: Ultrasound PERIPHERAL IV DATA: Not applicable SIGNED BY: Christiane Veronica RDMS January 26, 2024 5:18 PM [facility] 11-18-2023 Note HNO ID: [id number] Author: KELSEY ARANDA MD Service: Hospital Medicine Author Type: Physician Type: Progress Notes Filed: 11/18/2023 11:59 Note Text: DEPARTMENT OF HOSPITAL MEDICINE PROGRESS NOTE SERVICE DATE: 11/18/2023 SERVICE TIME: 11:47 AM Hospital Medicine/Primary Attending: Sophia Koehler MD NIGHT AND WEEKEND COVERAGE: [facility] COVERAGE: Days: , please contact via [employer] Nights: - floor: please page Hospitalist night cover [phone] - 4W: please page CC Hospitalist night cover #[phone] - 5th floor: please page CC Hospitalist night cover #[phone] - SDU (17:00 - 19:00): Please page #[phone] - SDU (19:00 - 07:00): Please call [facility] at [phone] Subjective INTERVAL HPI: abdominal pain still present. No n-vomiting now willing to eat. Current Facility-Administered Medications Medication Dose Route Frequency NaCl 0.9% iv flush bag 20 mL INTRAVENOUS PRN NaCl 0.9% iv infusion 100 mL/hr INTRAVENOUS CONTINUOUS clonazePAM 0.5 mg tab(s) (KlonoPIN) 0.5 mg ORAL BID PRN lisinopril 20 mg tab(s) (ZESTRIL) 20 mg ORAL DAILY fluvoxaMINE 50 mg tab(s) (LUVOX) 50 mg ORAL q 12 HR ondansetron 4 mg tab(s) (ZOFRAN) 4 mg ORAL q 6 H PRN Or ondansetron (PF) 4 mg injection (ZOFRAN) 4 mg INTRAVENOUS q 6 H PRN traMADol 50 mg tab(s) (ULTRAM) 50 mg ORAL q 6 H PRN morphine 2 mg injection 2 mg INTRAVENOUS q 3 H PRN cefTRIAXone 2 g in D5W 100 mL Vial-Bag (ROCEPHIN) 2 g INTRAVENOUS q 24 H metroNIDAZOLE iv piggyback 500 mg in NaCl (iso-osmotic) 100 mL (FLAGYL) 500 mg INTRAVENOUS q 8 H nicotine 14 mg/24 hr 1 Patch (NICODERM) 1 Patch TRANSDERMAL DAILY And nicotine -- REMOVE patch OTHER DAILY And nicotine - verify patch OTHER q 8 H magnesium sulfate iv piggyback in sterile water 2 g 50 mL 2 g INTRAVENOUS ONCE potassium chloride ER 40 mEq tab(s) (KLOR-CON) 40 mEq ORAL DAILY senna-docusate 8.6-50 mg 1 tablet (SENNA-S) 1 tablet ORAL BID Objective PHYSICAL EXAM: BP 144/83 Pulse 59 Temp (Src) 98.1 (Oral) Resp 20 Ht 6' 1 (1.85m) Wt 186 lb 11.7 oz (84.7kg) SpO2 95% BMI 24.64 kg/(m2). O2 Therapy: Room Air Physical Exam Performed Awake,alert mucosa moist lungs clear to auscultation no crackles or wheezes abdomen distended with normal BS but tender to palpation on both upper and lower left quadrants. No leg edema. Lines, Drains, and Airways Line Duration Peripheral 11/17/23 0929 Short Left Forearm 20 Gauge 1 day Reviewed lines and needs to be continued: REASONS: Intravenous fluids and Intravenous antibiotics DATA: Diagnostic tests reviewed for today's visit: Most recent labs Most recent imaging Assessment/Plan Problem List Acute diverticulitis (POA: Yes) Pancreatitis (POA: Yes) Depression (POA: Yes) Uncomplicated alcohol abuse (POA: Yes) Hypokalemia (POA: Yes) Nicotine use disorder, F17.2 (POA: Yes) HOSPITAL COURSE: 48 year old male with PMH significant for who h/o pancreatitis, depression/anxiety, nicotine and alcohol use who presents with abdominal pain, nausea and vomiting x 3 days. ED workup significant for bili 1.9, alk phos 150, lipase 405, K 3.3. No leukocytosis. CT A/P with mild acute short segment splenic flexure diverticulitis with trace pericolonic fluid and inflammatory fat stranding in the left upper quadrant, no abscess or free air. Admitted for management. Principal Problem: Acute diverticulitis: Pancreatitis Diverticulitis after eating outside home. Pain still a problem but no BM in last 4-5 days Miralax once and senna plus bid, if no BM today then dulcolax suppository. Iv atb today if good oral intake transition to oral tomorrow for dc. Lipase can be elevated in the setting of diverticulitis, more so if it is high and causing obstruction of pancreatic ducts. Lipase tomorrow for follow up trend. Pain control but I told him to use pain meds as least as possible to avoid further constipation. Depression Keep same regimen. Uncomplicated alcohol abuse As per him not a problem. Hypokalemia 1 Hypomagnesemia Correcting both. Due to alcohol intake magnesium needs to be corrected chronically. Nicotine use disorder, F17.2 Nicotine patch. Medication and Non-Pharmacologic VTE Prophylaxis/Anticoagulants 11/17/23 1900 activity - mobilize patient (fl,oh) VTE Prophylaxis: VTE prophylaxis appropriate Disposition: Home Plan of care discussed with Provider, RN, Patient Plan communicated to: N/A SIGNATURE: Kelsey Aranda MD PATIENT NAME: Ford Phelan DATE: November 18, 2023 TIME: 11:47 AM [facility] 11-18-2023 Note HNO ID: [id number] Author: DAIN LYNN MSW Service: Care Management Author Type: Timber Poisoner Type: Care Mgt Initial Assessment Filed: 11/18/2023 10:47 Note Text: CARE MANAGEMENT: ASSESSMENT AND DISCHARGE PLAN SERVICE DATE: November 18, 2023 SERVICE TIME: 10:27 AM PCP: No primary care provider on file. Primary Contact: Extended Emergency Contact Information Primary Emergency Contact: Letty Hatrman Mobile Relation: Friend Admission Status: Observation Insurance Provider: FRANCIA MENSAH Discharge Planning requested by: Per Department Practice Potential Transition Plans Home Advance Directives Current Advance Directive: None Manifest Clerk Attempted to Assist with AD Completion: Yes Action: Education Provided Current Living Arrangements and Support Lives with: Friends Type of Residence: Private Residence (Apartment or Condo) Does the patient have to climb stairs at home?: Yes;stairs outside the home (4 steps to enter and no steps in home) Support: Friends/neighbors How do you manage to accomplish the following: Independent: Ambulation;Bathe/Shower;Dress;Me als/Meal Prep;Going to the bathroom;Medication Management;Transportation to appointments/community Current Services/Equipment Current Post-Acute Service(s): None Discharge Planning Patient Goal(s): General wellness [place] of Choice Explained: [place] of Choice Given: No Reason Not Given: No placements necessary Are you interested in bedside delivery of your medications? No Discharge Planning Participant(s): Patient Patient/Family Comments: Caregiver Assessment: Caregiver is ready, willing and able to meet the patient's needs as recommended by the inter-professional team: No Caregiver needed and ALCOHOL USE/ABUSE CAGE ASSESSMENT Two or More Affirmative Responses Suggest a Client is a Problem Drinker. - Have you felt the need to cut down on your drinking? Yes - Do you feel annoyed by people complaining about your drinking? Yes - Do you ever feel guilty about your drinking? Yes - Do you ever drink an eye-trimmer sawyer in the morning to relieve shakes? No Transport at Discharge: Transportation Arrangements: Car Destination: Home Needs Prior to Discharge: Needs Prior to Discharge: To Be Determined Post-Acute Discharge Plan: SW/CM anticipates no skilled needs. Per chart review: 48 year old male with Abdominal pain, nausea, vomiting SW met with the pt at the pt's bedside. SW introduced herself and explained her role. SW and pt completed IA and cage assessment. Pt reports he drinks ETOH on weekends and cut back on the weekdays. Pt expressed he is interested in recovery resources. Pt lost resources provided by SW in the ED. This SW will provide pt with inpatient and outpatient recovery resources. Patient is independent and lives at with his friend Letty. Pt denies financial/safety concerns at this time; does not use DME or home O2. Pt's friend will drive pt home at DC. CM to remain available for POC and DC planning as needed. SIGNATURE: ASHLEE Recio PATIENT NAME: Ford Phelan DATE: November 18, 2023 TIME: 10:27 AM CONTACT #: [id number] [facility] 11-17-2023 Note HNO ID: [id number] Author: CAT MEDRANO RPh Service: Pharmacy Author Type: Pharmacist Type: Plan of Care Filed: 11/17/2023 16:37 Note Text: PHARMACY MEDICATION REVIEW Patient Name: Ford Phelan : 1975 The following medications were updated within the STOCK SHEETS CLEANER INSPECTOR medication list: Medications ADDED to STOCK SHEETS CLEANER INSPECTOR medication list NA Medications CHANGED on STOCK SHEETS CLEANER INSPECTOR medication list clonazePAM (KLONOPIN) 0.5 mg tablet - updated frequency from twice daily as needed to daily as needed, per dispense history on 11/08/23 hydrOXYzine pamoate (VISTARIL) 25 mg capsule --> hydrOXYzine HCl (ATARAX) 25 mg tablet / updated product to tablet, per dispense history. Medications REMOVED from STOCK SHEETS CLEANER INSPECTOR medication list NA NOT TAKING thiamine (VITAMIN B1) 100 mg tablet - pt reports not using this med REMOVED BY ADMITTING PROVIDER: (pt states he is not taking these meds) Albuterol HFA 90 mcg/actuation inhaler - pt reports only using PRN, but not in awhile Dicyclomine 20 mg tab - every 6 hours PRN Hydrochlorothiazide 12.5 mg Ondansetron 4 mg tablet - take 4 mg every 8 hours PRN , up to 2 doses per day Sertraline - daily Additional comments: N/A The below information represents the best possible medication history: Yes Medication history completed by: Environmental Engineering Professor: Tomasz Guevara Tech Source of history: Patient: Reliability of source: Appears reliable, clearly identified: Medication name, Medication dose, Medication route, Medication frequency, Timing of last dose, and Indications Medication nonadherence identified: No barriers noted Reconciliation completed: No, pharmacist not yet reviewed Patient interested in Bedside Delivery Services or using OP Pharmacy at discharge? Unable to assess Preferred outpatient pharmacy: [facility] [address] [place] [id number] [address] [phone] Allergies: No Known Allergies Prior to Admission Medications Prescriptions Last Dose Informant Patient Reported? Taking? clonazePAM (KLONOPIN) 0.5 mg tablet Unknown Yes Yes Sig: Take 0.5 mg by mouth once daily as needed for anxiety. fluvoxaMINE (LUVOX) 50 mg tablet 11/16/2023 Yes Yes Sig: Take 1 tablet by mouth every 12 hours. hydrOXYzine HCl (ATARAX) 25 mg tablet Unknown Yes Yes Sig: Take 25 mg by mouth two times a day as needed for anxiety. lisinopril (ZESTRIL, PRINIVIL) 20 mg tablet 11/16/2023 Yes Yes Sig: Take 20 mg by mouth once daily. thiamine (VITAMIN B1) 100 mg tablet Not Taking Yes No Sig: Take 100 mg by mouth once daily. Patient not taking: Reported on 11/17/2023 Facility-Administered Medications: None Tomasz Guevara Tech 11/17/2023 Pharmacist Addendum: I have reviewed the above information with the doctor of pharmacy and agree with the assessment/plan described. I did not personally speak to the patient/caregiver to confirm the medication history or adherence. Cat Medrano RPh 11/17/2023 4:37 PM Ext: [phone] [facility] 11-17-2023 Note HNO ID: [id number] Author: LAUREN MARTINEZ LISW Service: Care Management Author Type: Timber Poisoner Type: Care Mgt Progress Note Filed: 11/17/2023 12:12 Note Text: CARE MANAGEMENT PROGRESS NOTE SERVICE DATE: 11/17/2023 SERVICE TIME: 12:11 PM LOS: 0 days SW was consulted by MICHAEL in ED. Patient is being treated for pancreatitis. MICHAEL informed patient was open to SW providing substance abuse treatment resources. Patient was sleeping soundly when SW arrived and did not wake easily. SW left list of [facility] substance abuse treatment programs at bedside. SW team available to further assist as needed. SIGNATURE: KEELEY Bautista PATIENT NAME: Ford Phelan DATE: November 17, 2023 TIME: 12:09 PM PAGER/CONTACT #: [phone] [facility] 11-17-2023 Note HNO ID: [id number] Author: DIEGO ROSDAO RT(R) Service: ? Author Type: Technologist Type: Progress Notes Filed: 11/17/2023 10:45 Note Text: Radiology Service Progress Note PATIENT NAME: Ford Phelan DATE OF SERVICE: November 17, 2023 TIME: 10:45 AM PATIENT IDENTITY VERIFICATION COMPLETED USING TWO (2) IDENTIFIERS: Name and Date of confirmed by patient verbally and Name and Date of confirmed by identification band. FALL SCREENING: Has the patient had 2 falls in the last year or 1 fall with injury or currently using an Ambulatory Assistive Device (Walker, Cane, Wheelchair, Crutches, etc.)? Emergency Room Patient: Screened in ED PATIENT GENDER DATA: Male PATIENT RELEVANT IMPLANT DATA REVIEWED: Not Applicable PATIENT PRESENTS WITH AN IMPLANTABLE OR ATTACHED LABORER CAR BARN: No RADIOLOGY DEPARTMENT: CT; Exam(s) Completed: Abdomen/Pelvis PERIPHERAL IV DATA: Not applicable SIGNED BY: RT Tasneem(R) November 17, 2023 10:45 AM [facility] 04-11-2023 History of Present illness Narrative 04/11/23 1234 Discharge Planning Living Arrangements Other (Comment) Support Systems Friends/neighbors Assistance Needed ind Home or Post Acute Services None Patient expects to be discharged to: Home Does the patient need discharge transport arranged? No Met with pt who is up ambulating in room independently, chest tube removed, neighbors assisting with cats, friend picking up and pt will stay with friend through weekend. Pt prefers home no needs. Ford Phelan is a 47 y.o. male on day 5 of admission presenting with Closed fracture of one rib, unspecified laterality, initial encounter. Subjective 47 year old male resting comfortably in bed. Objective Physical Exam Constitutional: Appearance: Normal appearance. He is normal weight. HENT: Head: Normocephalic. Right Ear: Tympanic membrane normal. Left Ear: Tympanic membrane normal. Nose: Nose normal. Mouth/Throat: Mouth: Mucous membranes are moist. Pharynx: Oropharynx is clear. Eyes: Extraocular Movements: Extraocular movements intact. Pupils: Pupils are equal, round, and reactive to light. Cardiovascular: Rate and Rhythm: Normal rate and regular rhythm. Pulses: Normal pulses. Heart sounds: Normal heart sounds. Pulmonary: Effort: Pulmonary effort is normal. Breath sounds: Normal breath sounds. Chest: Chest wall: Tenderness present. Abdominal: General: Abdomen is flat. Bowel sounds are normal. Palpations: Abdomen is soft. Musculoskeletal: General: Normal range of motion. Cervical back: Normal range of motion. Skin: General: Skin is warm and dry. Capillary Refill: Capillary refill takes less than 2 seconds. Neurological: Mental Status: He is alert and oriented to person, place, and time. Mental status is at baseline. Psychiatric: Mood and Affect: Mood normal. Last Recorded Vitals Blood pressure 150/88, pulse 66, temperature 36.8 C (98.2 F), resp. rate 16, height 1.84 m (6' 0.44), weight 81.1 kg (178 lb 12.7 oz), SpO2 96 %. Intake/Output last 3 Shifts: I/O last 3 completed shifts: In: 1850 (22.8 mL/kg) [P.O.:1850] Out: 1455 (17.9 mL/kg) [Urine:1300 (0.4 mL/kg/hr); Chest Tube:155] Weight: 81.1 kg Relevant Results Lab Results Component Value Date WBC 7.3 04/11/2023 HGB 12.7 (L) 04/11/2023 HCT 37.2 (L) 04/11/2023 MCV 107 (H) 04/11/2023 PLT 202 04/11/2023 Lab Results Component Value Date GLUCOSE 89 04/11/2023 CALCIUM 8.3 (L) 04/11/2023 NA 132 (L) 04/11/2023 K 4.0 04/11/2023 CO2 26 04/11/2023 CL 98 04/11/2023 BUN 10 04/11/2023 CREATININE 0.57 04/11/2023 Assessment/Plan Subjective Patient resting comfortably in bed. He is tolerating pain and has good use of incentive spirometry. Tolerating his diet. Worked with PT/OT. Patient states he wants to go home. Impression Status post fall multiple rib fractures postop day 2 from replating on left side. Plan Discharge today Follow up with Dr. Cox on 05/01/2023 PT/OT okay with discharge Pain control DVT prophylaxis Continue pulmonary toileting Encourage ambulation Diet as tolerated Principal Problem: Closed fracture of one rib, unspecified laterality, initial encounter Active Problems: Fall, initial encounter Essential hypertension Multiple closed fractures of ribs of left side Xi Holliday PA-C Above except where noted below No acute events overnight. Pain is much better controlled. He is not on a COMPENSATOR. Chest tube has been removed. Patient is breathing well over 1200 mL on incentive spirometry. Status post fall multiple rib fractures postop day 2 from rib fixation for displaced rib fracture. Patient is doing much better from a pain standpoint. If patient is able to tolerate p.o. pain regimen, plan for him to be discharged today. Follow-up with Dr. Cox on 05/01/2023 from his recent surgery PT OT DVT prophylaxis Pulmonary toilet Out of bed Diet as tolerated No need to follow-up with general surgery/trauma surgery as an outpatient Chris Garcia MD 04/11/23 11:14 AM Occupational Therapy Re- Evaluation/Treatment Patient Name: Ford Phelan : 1975 Today's Date: 04/10/23 Time Calculation Start Time: 1008 Stop Time: 1022 Time Calculation (min): 14 min Assessment: End of Session Communication: Bedside nurse (communicated with RN that pt was in bathroom) End of Session Patient Position: (instructed to pull call light and wait for staff assist prior to getting up from toilet.) Plan: Treatment Interventions: ADL retraining, Functional transfer training, Endurance training OT Discharge Recommendations: Moderate intensity level of continued care Equipment Recommended upon Discharge: Wheeled walker Treatment Interventions: ADL retraining, Functional transfer training, Endurance training Subjective Current Problem: 1. Fall, initial encounter 2. Closed fracture of multiple ribs of left side, initial encounter Case Request Operating Room: Repair Chest Wall, left VATS, rib plating Case Request Operating Room: Repair Chest Wall, left VATS, rib plating 3. Lumbar disc herniation 4. Hypokalemia 5. Closed fracture of one rib, unspecified laterality, initial encounter Insert and maintain peripheral IV Saline lock IV Prepare RBC: 2 Units Type and screen Insert and maintain peripheral IV Saline lock IV Prepare RBC: 2 Units Type and screen ceFAZolin in dextrose (iso-os) (Ancef) IVPB 2 g DISCONTINUED: lactated Ringer's infusion DISCONTINUED: heparin (porcine) injection 5,000 Units DISCONTINUED: ceFAZolin in dextrose (iso-os) (Ancef) IVPB 2 g DISCONTINUED: heparin (porcine) injection 5,000 Units DISCONTINUED: ceFAZolin in dextrose (iso-os) (Ancef) IVPB 2 g DISCONTINUED: lactated Ringer's infusion DISCONTINUED: heparin (porcine) injection 5,000 Units CANCELED: NPO Diet; Effective now CANCELED: Please follow ERAS protocol CANCELED: Incentive spirometry Instruct CANCELED: Type and screen CANCELED: NPO Diet; Effective now CANCELED: Please follow ERAS protocol CANCELED: Incentive spirometry Instruct CANCELED: Type and screen Past Medical History: Diagnosis Date High blood pressure No past surgical history on file. General: OT Received On: 04/10/23 General Reason for Referral: s/p Left VATS open reduction interthoracic plating ribs 9 & 10, evacuation of hemothorax; intercostal nerve block 04/09/23 Referred By: PT/OT 04/09/23 Jennifer Past Medical History Relevant to Rehab: HTN, + smoker, ETOH Patient Position Received: Bed, 2 rail up, Alarm off, not on at start of session General Comment: To ED 04/04/23 s/p fall. Was getting out of shower stepping over tub and slipped. Landed on edge of tub. To OR 04/09/23 for above procedure.. + Opiates; CXR 04/04/23 Fx left posterolateral 9-12 ribs; remote fracture left posterior 5-7 ribs; CT 04/04/23 Head (-); Cervical spine (-) Fx; Lumbar spine Severe discogenic degenerative changes; Rightparacentral extrusion; Ethanol 204. Precautions: Medical Precautions: Fall precautions Pain: Pain Assessment Pain Score: 7 Pain Type: Surgical pain Pain Location: (L chest tube side, L shoulder) Objective Cognition: Overall Cognitive Status: Within Functional Limits Home Living: Home Living Comments: Per patient report resides alone 1 floor 7 steps to enter with handrail from front, no steps in back. Prior to injury independent in mobilty, ADLs and IADLs without AD. 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 Prior Function: Prior Function Comments: 1 fall. Drives. Works in [employer]. Activities of Daily Living: Eating Assistance: Independent Grooming Assistance: Stand by Bathing Assistance: Minimal UE Dressing Assistance: Stand by LE Dressing Assistance: Moderate Toileting Assistance with Device: Minimal Functional Assistance: (pt ambulated with CGA with ww 200') Bed Mobility/Transfers: Bed Mobility Bed Mobility: (sup to sit min a) Transfers Transfer: (sit to stand at EOB min A) Balance: Static Sitting: good Dynamic Sitting: fair Static Standing: fair + Dynamic Standing: fair Vision:Vision - Basic Assessment Current Vision: No visual deficits Strength: Strength Comments: B UE 4/5 throughout Extremities: RUE RUE : Within Functional Limits and LUE LUE: Within Functional Limits Outcome Measures: [facility] Daily Activity Putting on and taking off regular lower body clothing: A lot Bathing (including washing, rinsing, drying): A lot Putting on and taking off regular upper body clothing: A little Toileting, which includes using toilet, bedpan or urinal: A little Taking care of personal grooming such as brushing teeth: A little Eating Meals: None Daily Activity - Total Score: 17 Goals: Encounter Problems Encounter Problems (Active) OT Goals SBA for all functional transfers (Progressing) Start: 04/07/23 Expected End: 04/10/23 SBA donning/doffing pants (Progressing) Start: 04/07/23 Expected End: 04/10/23 Fair + dyn standing balance sinkside for grooming (Progressing) Start: 04/07/23 Expected End: 04/10/23 SBA for toileting tasks and clothing mgmt (Progressing) Start: 04/07/23 Expected End: 04/10/23 Safety LTG - Patient will adhere to hip precautions during ADL's and transfers Start: 04/10/23 LTG - Patient will demonstrate safety requirements appropriate to situation/environment Start: 04/10/23 LTG - Patient will utilize safety techniques Start: 04/10/23 STG - Patient locks brakes on wheelchair Start: 04/10/23 STG - Patient uses call light consistently to request assistance with transfers Start: 04/10/23 STG - Patient uses gait belt during all transfers Start: 04/10/23 Goal 1 Start: 04/10/23 Goal 2 Start: 04/10/23 Goal 3 Start: 04/10/23 Physical Therapy Physical Therapy Re_Evaluation Patient Name: Ford Phelan Today's Date: 04/10/2023 Time Calculation Start Time: 1012 Stop Time: 1040 Time Calculation (min): 28 min Assessment/Plan PT Assessment PT Assessment Results: Decreased strength, Impaired balance, Decreased mobility, Decreased endurance, Decreased safety awareness, Pain Rehab Prognosis: Good Evaluation/Treatment Tolerance: Patient tolerated treatment well End of Session Communication: Bedside nurse Assessment Comment: Patient will benefit from additional PT to increase strength, actiivty tolerance and mobility End of Session Patient Position: (On toilet instructed to pull cord. RN aware) IP OR SWING BED PT PLAN Inpatient or Swing Bed: Inpatient PT Plan Treatment/Interventions: Bed mobility, Transfer training, Gait training, Stair training, Strengthening, Therapeutic activity, Therapeutic exercise PT Plan: Skilled PT PT Frequency: 3 times per week PT Discharge Recommendations: Moderate intensity level of continued care Equipment Recommended upon Discharge: Wheeled walker PT Recommended Transfer Status: Assist x1 PT - OK to Discharge: (Patient will benefit from continued PT at SNF level upon discharge from medical standpoint) Subjective General Visit Information: General Reason for Referral: s/p Left VATS open reduction interthoracic plating ribs 9 & 10, evacuation of hemothorax; intercostal nerve block 04/09/23 Referred By: PT/OT 04/09/23 Jennifer Past Medical History Relevant to Rehab: HTN, + smoker, ETOH Patient Position Received: Bed, 2 rail up, Alarm off, not on at start of session General Comment: To ED 04/04/23 s/p falal. Was getting out of shower stepping over tub and slipped. Landed on edge of tub. to OR 04/09/23 for above procedure.. + Opiates; CXR 04/04/23 Fx left posterolateral 9-12 ribs; remote fracture left posterior 5-7 ribs; CT 04/04/23 Head (-); Cervical spine (-) Fx; Lumbar spine Severe discogenic degenerative changes; Rightparacentral extrusion; Ethanol 204. Home Living: Home Living Home Living Comments: Per patient report resides alone 1 floor 7 steps to enter with handrail from front, no steps in back. Prior to injury independent in mobilty, ADLs and IADLs without AD. 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 Precautions: Precautions Medical Precautions: Fall precautions Precautions Comment: CIWA Objective Pain: Pain Assessment Pain Score: 7 Pain Type: Surgical pain Pain Location: (Left chest and shoulder) Pain Orientation: Left Cognition: Cognition Overall Cognitive Status: Within Functional Limits Orientation Level: Oriented X4 General Assessments: General Observation General Observation: Patient lying in bed. Chest tub. 2 1/[address] Telemetry. Static Sitting Balance Static Sitting-Comment/Number of Minutes: Good Dynamic Sitting Balance Dynamic Sitting-Comments: Fair + Static Standing Balance Static Standing-Comment/Number of Minutes: Fair + with ww Dynamic Standing Balance Dynamic Standing-Comments: Fair with WW Functional Assessments: Bed Mobility Bed Mobility: (Supine > sit + 1minimal assist for LLE. Patient slow transitioning to sit) Transfers Transfer: (Sit > stand at bed level + 2 minimal assist. Stand > sit at toilet + 1 minimal assist. VC for hand placement. Difficult getting to full stand due to chest pain.) Ambulation/Gait Training Ambulation/Gait Training Performed: (Patient ambulated with ww 150' CGA, tends to adopt flexed hip/knee posture with poor clearance. Multiple vc to take bigger step.) Extremity/Trunk Assessments: RUE RUE : Within Functional Limits LUE LUE: Within Functional Limits RLE RLE : (AROM: Hip/knee/ankle WFL; MMT Hip 3+/5; knee/ankle 4/5) LLE LLE : (AROM: Hip/knee/ankle WFL; MMT Hip 3+.5; knee/ankle 4/5) Outcome Measures: [facility] Basic Mobility Turning from your back to your side while in a flat bed without using bedrails: A little Moving from lying on your back to sitting on the side of a flat bed without using bedrails: A little Moving to and from bed to chair (including a wheelchair): A little Standing up from a chair using your arms (e.g. wheelchair or bedside chair): A little To walk in hospital room: A little Climbing 3-5 steps with railing: Total Basic Mobility - Total Score: 16 Encounter Problems Encounter Problems (Active) PT Problem Bed mobility supine <> side lying <> sit CGA (Progressing) Start: 04/07/23 Expected End: 04/24/23 Transfers sit <> stand /bed<> chair with ww CGA (Progressing) Start: 04/07/23 Expected End: 04/24/23 Patient to ambulate with WW 50' CGA (Progressing) Start: 04/07/23 Expected End: 04/24/23 PT Problem Patient to negotiate 7 steps with handrail CGA (Not Progressing) Start: 04/10/23 Expected End: 04/24/23 Education Documentation Mobility Training, taught by Liz Parkinson PT at 04/10/2023 12:28 PM. Learner: Patient Readiness: Acceptance Method: Demonstration, Explanation Response: Demonstrated Understanding, Needs Reinforcement Education Comments No comments found. Chest tube to be removed today. PT/OT shannon pending for help with dc planning. Ford Phelan is a 47 y.o. male on day 4 of admission presenting with Closed fracture of one rib, unspecified laterality, initial encounter. Subjective Patient is resting comfortably in bed. Objective Physical Exam Constitutional: Appearance: Normal appearance. He is normal weight. HENT: Head: Normocephalic. Right Ear: Tympanic membrane normal. Left Ear: Tympanic membrane normal. Nose: Nose normal. Mouth/Throat: Mouth: Mucous membranes are moist. Pharynx: Oropharynx is clear. Eyes: Extraocular Movements: Extraocular movements intact. Pupils: Pupils are equal, round, and reactive to light. Cardiovascular: Rate and Rhythm: Normal rate and regular rhythm. Pulses: Normal pulses. Heart sounds: Normal heart sounds. Pulmonary: Effort: Pulmonary effort is normal. Breath sounds: Normal breath sounds. Chest: Chest wall: Tenderness present. Comments: Chest tube is in place Abdominal: General: Abdomen is flat. Bowel sounds are normal. Palpations: Abdomen is soft. Musculoskeletal: General: Normal range of motion. Cervical back: Normal range of motion. Skin: General: Skin is warm and dry. Capillary Refill: Capillary refill takes less than 2 seconds. Neurological: Mental Status: He is alert and oriented to person, place, and time. Mental status is at baseline. Psychiatric: Mood and Affect: Mood normal. Last Recorded Vitals Blood pressure 113/68, pulse 72, temperature 36.5 C (97.7 F), temperature source Temporal, resp. rate 18, height 1.84 m (6' 0.44), weight 81.1 kg (178 lb 12.7 oz), SpO2 96 %. Intake/Output last 3 Shifts: I/O last 3 completed shifts: In: 1350 (16.6 mL/kg) [P.O.:650; IV Piggyback:700] Out: 1855 (22.9 mL/kg) [Urine:1650 (0.6 mL/kg/hr); Chest Tube:205] Weight: 81.1 kg Relevant Results Lab Results Component Value Date WBC 8.1 04/10/2023 HGB 13.3 (L) 04/10/2023 HCT 37.8 (L) 04/10/2023 MCV 107 (H) 04/10/2023 PLT 148 (L) 04/10/2023 Lab Results Component Value Date GLUCOSE 113 (H) 04/10/2023 CALCIUM 8.1 (L) 04/10/2023 NA 132 (L) 04/10/2023 K 3.5 04/10/2023 CO2 27 04/10/2023 CL 99 04/10/2023 BUN 9 04/10/2023 CREATININE 0.54 04/10/2023 === 04/04/23 === XR CHEST 1 VIEW - Impression - Mild atelectasis/infiltrates in the left base. No sizable pneumothorax. Left chest tube remains in place. MACRO: None. Signed by: Miguel A Chin 04/10/2023 9:14 AM Dictation workstation: [id number] Assessment/Plan Subjective Patient is awake and in bed. Overnight critical care was called to bedside at 1530 due to severe pain and was given a one time does of Ketamine 25 mg IV. X-ray findings were suggestive of atelectasis. He reports being in pain this morning but it is better compared to last night. COMPENSATOR pump was placed within reach after it was found hanging on IV pole and out of patient's reach. Chest tube in place without air leak. Serosanguineous drainage. Impression Post op day 1 from rib plating. Plan Pain control Nausea control Continue pulmonary toileting Removal of chest tube per thoracic Encourage ambulation PT/OT DVT prophylaxis with subcutaneous heparin Diet as tolerated Further recommendations per Dr. Garcia Principal Problem: Closed fracture of one rib, unspecified laterality, initial encounter Active Problems: Fall, initial encounter Essential hypertension Multiple closed fractures of ribs of left side Xi Holliday PA-C No acute events overnight. Patient had his replating yesterday and was in a fair amount of pain this morning. He was have the COMPENSATOR but was not using it. Had over 1200 this morning on 7 spirometer. Chest tube did not demonstrate any air leak and had serosanguineous drainage. Status post fall multiple rib fractures postop day 1 from replating on left side. P.o. and IV pain meds Chest tube per Thoracics DVT prophylaxis Up and out of bed ISS Ok for RNF PT/OT, once pain better controlled and chest tube removed, can be DCed Chris Garcia MD 04/10/23 11:47 AM Ford Phelan is a 47 y.o. male on day 4 of admission presenting with Closed fracture of one rib, unspecified laterality, initial encounter. Subjective Frod Phelan is a 47 y.o. male with history of hypertension, tobacco use, alcohol use, and alcoholic pancreatitis. Presented on 04/04 with left-sided chest pain following a fall that occurred while getting out of the shower. Alcohol level at that time 204. CT showing fractures of the left ninth through 12th ribs with ninth rib displacement. Admitted to the ICU for pain management and pulmonary hygiene and monitoring. Thoracic surgery consulted for possible rib plating. 04/09: Pt underwent LVATS open reduction intrathoracic plating of left 9th and 10th ribs; LVATS evacuation of hemothorax; bronchoscopy; intercostal nerve block. He tolerated the procedure well and was recovered in PACU prior to transferring to ICU. POD#1: Pt is afebrile and hemodynamically stable. Maintaining SR. Adequate SpO2 on 2L NC. Reports pain to left chest. Inspiratory volume remains very shallow. Left pleural chest tube with tapering serosanguinous output and no air leak; will remove today. Pt is tolerating diet without nausea and passing flatus. Ambulated around unit independently with stand by assist. There were no acute overnight events. Objective Physical Exam Vitals and nursing note reviewed. Constitutional: General: He is not in acute distress. Appearance: Normal appearance. He is normal weight. HENT: Head: Normocephalic and atraumatic. Nose: Nose normal. Mouth/Throat: Mouth: Mucous membranes are moist. Pharynx: Oropharynx is clear. Eyes: Extraocular Movements: Extraocular movements intact. Pupils: Pupils are equal, round, and reactive to light. Cardiovascular: Rate and Rhythm: Normal rate and regular rhythm. Pulses: Normal pulses. Heart sounds: Normal heart sounds. Pulmonary: Effort: No respiratory distress. Comments: Poor inspiratory effort Diminished mid lung to base bilaterally with expiratory wheeze LLL L pleural CT with tapering serosanguinous output and no air leak (to be removed today) Abdominal: General: Abdomen is flat. Bowel sounds are normal. Palpations: Abdomen is soft. Musculoskeletal: General: Normal range of motion. Cervical back: Normal range of motion and neck supple. Skin: General: Skin is warm and dry. Neurological: General: No focal deficit present. Mental Status: He is alert and oriented to person, place, and time. Psychiatric: Mood and Affect: Mood normal. Behavior: Behavior normal. Last Recorded Vitals Blood pressure 126/86, pulse 76, temperature 36.5 C (97.7 F), temperature source Temporal, resp. rate 18, height 1.84 m (6' 0.44), weight 81.1 kg (178 lb 12.7 oz), SpO2 97 %. Intake/Output last 3 Shifts: I/O last 3 completed shifts: In: 1350 (16.6 mL/kg) [P.O.:650; IV Piggyback:700] Out: 1855 (22.9 mL/kg) [Urine:1650 (0.6 mL/kg/hr); Chest Tube:205] Weight: 81.1 kg Relevant Results Scheduled medications acetaminophen, 975 mg, oral, q8h docusate sodium, 100 mg, oral, BID folic acid, 1 mg, oral, Daily guaiFENesin, 600 mg, oral, BID heparin (porcine), 5,000 Units, subcutaneous, q8h hydroCHLOROthiazide, 12.5 mg, oral, Daily ketorolac, 15 mg, intravenous, q6h lidocaine, 1 patch, transdermal, Daily lisinopril, 20 mg, oral, Daily magnesium oxide, 800 mg, oral, Daily melatonin, 6 mg, oral, Nightly multivitamin with minerals, 1 tablet, oral, Daily nicotine, 1 patch, transdermal, Daily Followed by [START ON 05/21/2023] nicotine, 1 patch, transdermal, Daily Followed by [START ON 06/04/2023] nicotine, 1 patch, transdermal, Daily PHENobarbitaL, 32.4 mg, oral, TID polyethylene glycol, 17 g, oral, Daily sertraline, 100 mg, oral, Daily thiamine, 100 mg, oral, Daily Continuous medications HYDROmorphone, PRN medications PRN medications: albuterol, guaiFENesin, naloxone, ondansetron ODT OR ondansetron, oxyCODONE, oxyCODONE, oxygen, oxygen Results for orders placed or performed during the hospital encounter of 04/04/23 (from the past 24 hour(s)) CBC Result Value Ref Range WBC 8.1 4.4 - 11.3 x10*3/uL nRBC 0.0 0.0 - 0.0 /100 WBCs RBC 3.53 (L) 4.50 - 5.90 x10*6/uL Hemoglobin 13.3 (L) 13.5 - 17.5 g/dL Hematocrit 37.8 (L) 41.0 - 52.0 % MCV 107 (H) 80 - 100 fL MCH 37.7 (H) 26.0 - 34.0 pg MCHC 35.2 32.0 - 36.0 g/dL RDW 13.1 11.5 - 14.5 % Platelets 148 (L) 150 - 450 x10*3/uL Basic metabolic panel Result Value Ref Range Glucose 113 (H) 74 - 99 mg/dL Sodium 132 (L) 136 - 145 mmol/L Potassium 3.5 3.5 - 5.3 mmol/L Chloride 99 98 - 107 mmol/L Bicarbonate 27 21 - 32 mmol/L Anion Gap 10 10 - 20 mmol/L Urea Nitrogen 9 6 - 23 mg/dL Creatinine 0.54 0.50 - 1.30 mg/dL eGFR >90 >60 mL/min/1.73m*2 Calcium 8.1 (L) 8.6 - 10.3 mg/dL Magnesium Result Value Ref Range Magnesium 1.73 1.60 - 2.40 mg/dL XR chest 1 view Result Date: 04/10/2023 Interpreted By: Miguel A Chin, STUDY: XR CHEST 1 VIEW; 04/10/2023 5:47 am INDICATION: Signs/Symptoms:post op rib plating. COMPARISON: 04/09/2023 ACCESSION NUMBER(S): [id number] ORDERING CLINICIAN: TAJ ENCISO FINDINGS: CHEST/LUNGS: The cardiac and mediastinal silhouettes are unchanged in size and configuration. Left-sided chest tube is unchanged in position. No sizable pneumothorax. Atelectasis/infiltrates in the left base. No sizable effusion. Mild atelectasis/scarring in the right mid lung. Persistent left-sided subcutaneous emphysema. UPPER ABDOMEN: No remarkable upper abdominal findings. OSSEOUS STRUCTURES: No acute changes. Mild atelectasis/infiltrates in the left base. No sizable pneumothorax. Left chest tube remains in place. MACRO: None. Signed by: Miguel A Chin 04/10/2023 9:14 AM Dictation workstation: [id number] XR chest 1 view Result Date: 04/09/2023 Interpreted By: Ivette Andrade, STUDY: XR CHEST 1 VIEW; 04/09/2023 5:44 pm INDICATION: Signs/Symptoms:New onset SOB post procedure. COMPARISON: 04/09/2023 ACCESSION NUMBER(S): [id number] ORDERING CLINICIAN: JORGE ALMODOVAR FINDINGS: Left-sided chest tube present. No visible pneumothorax. Left chest wall subcutaneous emphysema. Streaky bibasilar opacities suggestive of atelectasis. Normal heart size. No large pleural effusion. Left chest tube in place. No visible pneumothorax. Streaky bibasilar opacities suggesting atelectasis. Signed by: Ivette Andrade 04/09/2023 6:37 PM Dictation workstation: [id number] XR chest 1 view Result Date: 04/09/2023 Interpreted By: Brittney Holder, STUDY: Chest, single AP view. INDICATION: Signs/Symptoms:rib fractures. COMPARISON: Chest radiograph dated 04/08/2023 ACCESSION NUMBER(S): [id number] ORDERING CLINICIAN: SILVIA JUARES FINDINGS: Left apical chest tube in place. The cardiac silhouette size is within normal limits. There is no focal consolidation, edema or pneumothorax. No sizeable pleural effusion. No acute osseous abnormality. Chronic healed left posterior 5th, 6th, 7th rib fractures with cortical deformities. Additional previously described fractures of the left posterior and posterolateral 9th through 12th ribs are better evaluated on the previous CT chest study. 1. Left apical chest tube in place. No pneumothorax. 2. Chronic healed left posterior 5th, 6th, 7th rib fractures with cortical deformities. 3. Additional previously described fractures of the left posterior and posterolateral 9th through 12th ribs are better evaluated on the previous CT chest study. MACRO: None. Signed by: Brittney Holder 04/09/2023 11:49 AM Dictation workstation: [id number] Assessment/Plan Principal Problem: Closed fracture of one rib, unspecified laterality, initial encounter Active Problems: Fall, initial encounter Essential hypertension Multiple closed fractures of ribs of left side Multiple rib fractures following mechanical fall -Presented to ED with left-sided chest pain following a mechanical fall in the shower which he sustained fractures of the ninth through 12th ribs with ninth rib displacement. Significant pain that is prohibitive of effective coughing/pulmonary hygiene and placing patient at risk for complications of pneumonia. s/p LVATS open reduction intrathoracic plating of left 9th and 10th ribs; LVATS evacuation of hemothorax; bronchoscopy; intercostal nerve block -Discussed with Dr. Cox -Will pull CT and obtain post pull CXR; CTS to sign off if no unexpected findings on repeat CXR -Oxycodone 5-10mg Q4H PRN, Toradol 15mg Q6H PRN, and COMPENSATOR; COMPENSATOR management per primary -Bowel regimen of Colace and Miralax -Mucinex BID -subcutaneous heparin resumed for DVT prophylaxis; Protonix for GI prophylaxis -Diet as tolerated -Encourage pulmonary hygiene -Activity as tolerated. Encourage ambulation. Therapy following -F/U with Dr. Cox as documented in DC instructions I spent 45 minutes in the professional and overall care of this patient. FRANKIE Almanza General Surgery Progress Note Patient: Ford Phelan Unit/Bed: 803/803-A Date of : 1975 Acct: [id number] Admitting Diagnosis: Hypokalemia [E87.6] Lumbar disc herniation [M51.26] Fall, initial encounter [W19.XXXA] Closed fracture of one rib, unspecified laterality, initial encounter [S22.39XA] Closed fracture of multiple ribs of left side, initial encounter [S22.42XA] Date: 04/04/2023 Hospital Day: 3 Attending: Chris Garcia MD Chief Complaint Patient presents with Fall Pt slipped getting out of the shower and fell forward, hit left side of body on the bath tub. SUBJECTIVE Patient resting comfortably in bed. Reports his postoperative pain has improved tremendously. He has a chest tube in place on the left side. He is able to pull 2000 or more on the incentive spirometer. He is aware of the plan for him to work with PT/OT tomorrow and continue using the incentive spirometer. VITALS Vitals: 04/09/23 1115 04/09/23 1200 04/09/23 1300 04/09/23 1400 BP: 116/71 118/74 117/81 130/84 Pulse: 80 94 82 70 Resp: 16 Temp: 37.1 C (98.8 F) TempSrc: Temporal SpO2: 95% 97% 97% Weight: 81.1 kg (178 lb 12.7 oz) Height: 1.84 m (6' 0.44) Intake/Output Summary (Last 24 hours) at 04/09/2023 1454 Last data filed at 04/09/2023 1400 Gross per 24 hour Intake 700 ml Output 1400 ml Net -700 ml Wt Readings from Last 4 Encounters: 04/09/23 81.1 kg (178 lb 12.7 oz) Allergies: Allergies Allergen Reactions Bupropion Hallucinations PHYSICAL EXAM Physical Exam HENT: Head: Normocephalic and atraumatic. Mouth/Throat: Mouth: Mucous membranes are dry. Pharynx: Oropharynx is clear. Eyes: Extraocular Movements: Extraocular movements intact. Pupils: Pupils are equal, round, and reactive to light. Cardiovascular: Rate and Rhythm: Normal rate and regular rhythm. Pulses: Normal pulses. Heart sounds: S1 normal and S2 normal. Pulmonary: Effort: Pulmonary effort is normal. Breath sounds: Normal breath sounds. Chest: Chest wall: Tenderness present. Comments: Chest tube in place. Abdominal: General: Abdomen is flat. Bowel sounds are normal. There is no distension. Palpations: Abdomen is soft. Tenderness: There is no abdominal tenderness. There is no guarding. Musculoskeletal: General: No swelling or tenderness. Normal range of motion. Cervical back: Normal range of motion. Skin: General: Skin is warm and dry. Capillary Refill: Capillary refill takes less than 2 seconds. Neurological: General: No focal deficit present. Mental Status: He is alert and oriented to person, place, and time. Psychiatric: Attention and Perception: Attention normal. Mood and Affect: Mood normal. Speech: Speech normal. Behavior: Behavior normal. Behavior is cooperative. LABS CBC: Results from last 7 days Lab Units 04/09/23 0618 04/08/23 0706 04/07/23 0343 WBC AUTO x10*3/uL 6.5 7.8 6.8 RBC AUTO x10*6/uL 4.04* 3.64* 3.58* HEMOGLOBIN g/dL 15.0 13.5 13.3* HEMATOCRIT % 41.9 37.6* 36.9* MCV fL 104* 103* 103* MCH pg 37.1* 37.1* 37.2* MCHC g/dL 35.8 35.9 36.0 RDW % 13.0 12.9 12.8 PLATELETS AUTO x10*3/uL 156 135* 118* CMP: Results from last 7 days Lab Units 04/09/2361704/08/2370504/07/2334204/06/2343004/05/2343304/04/23 0539 SODIUM mmol/L 132* 134* 131* 133* 134* < > 142 POTASSIUM mmol/L 3.8 3.8 3.5 3.5 3.5 < > 2.7* CHLORIDE mmol/L 98 98 95* 95* 96* < > 101 CO2 mmol/L 28 30 31 29 30 < > 29 BUN mg/dL 11 11 9 9 8 < > 6 CREATININE mg/dL 0.60 0.57 0.56 0.52 0.55 < > 0.55 GLUCOSE mg/dL 89 93 107* 82 84 < > 112* PROTEIN TOTAL g/dL -- -- -- 5.1* -- 6.1* CALCIUM mg/dL 8.6 8.0* 8.1* 8.0* 7.9* < > 8.2* BILIRUBIN TOTAL mg/dL -- -- -- 4.3* -- 1.1 ALK PHOS U/L -- -- -- 134* -- 139* AST U/L -- -- -- 132* -- 207* ALT U/L -- -- -- 71* -- 113* < > = values in this interval not displayed. Magnesium: Results from last 7 days Lab Units 04/09/2361704/08/2370504/07/23342 MAGNESIUM mg/dL 1.76 1.79 1.80 Lipase: Lab Results Component Value Date LIPASE 205 (H) 04/04/2023 Medications: acetaminophen, 975 mg, oral, q8h [Held by provider] enoxaparin, 30 mg, subcutaneous, q12h folic acid, 1 mg, oral, Daily [Held by provider] heparin (porcine), 5,000 Units, subcutaneous, q8h hydroCHLOROthiazide, 12.5 mg, oral, Daily ketorolac, 15 mg, intravenous, q6h lidocaine, 1 patch, transdermal, Daily lisinopril, 20 mg, oral, Daily magnesium oxide, 800 mg, oral, Daily melatonin, 6 mg, oral, Nightly methocarbamol, 1,000 mg, oral, q8h KORIN multivitamin with minerals, 1 tablet, oral, Daily nicotine, 1 patch, transdermal, Daily Followed by [START ON 05/21/2023] nicotine, 1 patch, transdermal, Daily Followed by [START ON 06/04/2023] nicotine, 1 patch, transdermal, Daily PHENobarbitaL, 32.4 mg, oral, TID polyethylene glycol, 17 g, oral, Daily sertraline, 100 mg, oral, Daily thiamine, 100 mg, oral, Daily lactated Ringer's, 100 mL/hr Current Outpatient Medications Medication Instructions albuterol 90 mcg/actuation aerosol powdr breath activated inhaler 2 puffs, inhalation, Every 4 hours PRN clonazePAM (KLONOPIN) 0.25 mg, oral, 2 times daily PRN hydroCHLOROthiazide (HYDRODIURIL) 12.5 mg, oral, Daily lisinopril 20 mg, oral, Daily sertraline (ZOLOFT) 100 mg, oral, Daily thiamine (VITAMIN B-1) 100 mg, oral, Daily XR chest 1 view Result Date: 04/05/2023 Interpreted By: Brittney Holder, STUDY: Chest, single AP view. INDICATION: Signs/Symptoms:fu chest x-ray for rib fx. COMPARISON: CT chest 04/04/2023 and chest radiograph 04/04/2023 ACCESSION NUMBER(S): [id number] ORDERING CLINICIAN: CHRIS GARCIA FINDINGS: The cardiac silhouette size is within normal limits. There is no focal consolidation, edema or pneumothorax. No sizeable pleural effusion. No acute osseous abnormality. Redemonstration of subacute left posterolateral 9th through 12th rib fractures that are better evaluated on the previous CT chest study. More remote fractures of left posterior 5th through 7th ribs noted as well. 1. No acute cardiopulmonary process. 2. Redemonstration of acute left posterolateral 9th through 12th rib fractures that are better evaluated on the previous CT chest study. More remote fractures of left posterior 5th through 7th ribs noted as well. MACRO: None. Signed by: Brittney Holder 04/05/2023 9:10 AM Dictation workstation: [id number] CT chest abdomen pelvis w IV contrast Result Date: 04/04/2023 Interpreted By: Antoine Veloz, STUDY: CT CHEST ABDOMEN PELVIS W IV CONTRAST; 04/04/2023 6:57 am INDICATION: Signs/Symptoms:left rib pain/ bruising after fall. Patient fell in the shower with left-sided chest pain. COMPARISON: None. ACCESSION NUMBER(S): [id number] ORDERING CLINICIAN: JOHANNA RIOS TECHNIQUE: Contiguous axial CT sections are performed from the thoracic inlet to lesser trochanters following the bolus administration of 90 cc of intravenous Omnipaque 350. FINDINGS: There is mild dependent edema or atelectasis in the lower lobes. There is trace left pleural effusion or hemothorax. There is no pneumothorax. There is a fracture of the left 12th rib which appears minimally displaced with slight cortical offset. There are fractures of the left 11th rib. A posterior fractures nondisplaced. A posterolateral fracture is minimally displaced at the anterior cortex. There is a fracture of the left 10th rib which is mildly displaced posteriorly and posterolaterally. There is a displaced fracture of the posterior left 9th rib with comminution. There is displacement of 1 bone width. There is surrounding edema. The remaining visualized osseous structures are intact. The thoracic aorta is of normal caliber and enhancement. There is no aortic dissection. There is no pathologic lymph node enlargement in the mediastinum or pulmonary ramirez. There is no mediastinal fluid collection or pneumomediastinum. There is no pneumothorax. There is no intraluminal filling defect in the main pulmonary artery, right left pulmonary artery, or lobar arteries. There is diffuse fatty metamorphosis of the liver with some fatty sparing surrounding the gallbladder. No space-occupying mass is detected. The gallbladder is distended though otherwise unremarkable. The spleen, pancreas, and adrenal glands are of normal CT appearance. The kidneys are symmetric in size and enhance symmetrically and uniformly. There is no hydronephrosis or renal calculus. There is no hydroureter or obstructing ureteral calculus. The urinary bladder is not opacified though is well distended and otherwise unremarkable. There is no bladder calculus. The abdominal aorta is of normal and uniform caliber. The aorta enhances normally. There is no periaortic mass or fluid collection. The IVC is unremarkable. There is no bowel distension or infiltration of the bowel mesentery. The appendix has a normal appearance. There is no free air or free fluid collection in the abdomen or pelvis. There is no herniated bowel. There is a tiny fat containing umbilical hernia. There is severe discogenic degenerative changes of the lumbosacral junction which are described in detail on the CT lumbar spine examination of the same day. Fractures of the posterior and posterolateral left 12th, 11th, 10th, and 9th rib. Trace left hemothorax. There is no sizable pneumothorax. Severe fatty metamorphosis of the liver. Severe discogenic degenerative changes at the lumbosacral junction, described in detail on the CT lumbar spine examination of the same day. The remainder of the chest, abdomen, and pelvis is unremarkable. There is no evidence solid or hollow visceral injury. Signed by: Antoine Veloz 04/04/2023 7:48 AM Dictation workstation: [id number] CT thoracic spine wo IV contrast Result Date: 04/04/2023 Interpreted By: Antoine Veloz, STUDY: CT THORACIC SPINE WO IV CONTRAST; 04/04/2023 7:01 am INDICATION: Signs/Symptoms:fall. COMPARISON: None. ACCESSION NUMBER(S): [id number] ORDERING CLINICIAN: JOHANNA RIOS TECHNIQUE: Contiguous axial CT sections are performed through the thoracic spine and supplemented with coronal and sagittal reformatted images. FINDINGS: There is slight levoconvexity of the upper thoracic spine. The thoracic vertebral body alignment is otherwise within normal limits. The facet joints align normally. There are nondisplaced fractures of the posterior left 12th, 11th, and 10th rib. The ribs are incompletely visualized with this field of view. There is trace pleural fluid posteriorly on the left. The thoracic vertebral body heights are maintained. There are small Schmorl's node deformity at the inferior endplates T11 and T10 to the left of midline. There is otherwise no sign of thoracic vertebral body fracture. There is no bone destruction or aggressive periosteal reaction. No lytic or blastic lesion is detected. There is no significant central canal stenosis. The spinal cord is poorly characterized with CT. Nondisplaced fractures of the posterior 12th, 11th, 10th rib. Ribs are incompletely visualized with this field of view. Trace left pleural effusion or hemothorax. No sign of thoracic vertebral body fracture or malalignment. No CT evidence of central canal stenosis. Signed by: Antoine Veloz 04/04/2023 7:41 AM Dictation workstation: [id number] CT lumbar spine wo IV contrast Result Date: 04/04/2023 Interpreted By: Antoine Veloz, STUDY: CT LUMBAR SPINE WO IV CONTRAST; 04/04/2023 7:01 am INDICATION: Signs/Symptoms:fall. COMPARISON: None. ACCESSION NUMBER(S): [id number] ORDERING CLINICIAN: JOHANNA RIOS TECHNIQUE: Contiguous axial CT sections are performed through the lumbar spine is supplemented with coronal and sagittal reformatted images. FINDINGS: There is straightening of the lumbar lordosis. There is posterior subluxation of C5 relative to C6 measuring 6 mm. There are severe discogenic degenerative changes at L5-S1 with severe disc space narrowing and endplate sclerosis. There is vacuum phenomenon at this level. There is mild disc space narrowing at L1-2. The remaining lumbar disc space heights are preserved. The lumbar vertebral body heights are maintained. There are nondisplaced fractures of the posterior left 11th and 12th rib. There is no evidence lumbar vertebral body fracture. There is no bone destruction or aggressive periosteal reaction. No lytic or blastic lesion is identified. There are moderate osteoarthritic changes of both sacroiliac joints. The T12-L1 disc space level is unremarkable. The L1-2 disc space level is unremarkable. The L2-3 disc space level demonstrates mild bilateral facet arthrosis. There is mild bulging disc though no significant central canal or neural foraminal stenosis. The L3-4 disc space level demonstrates mild bilateral facet arthrosis and ligamentum flavum hypertrophy. There is mild circumferential bulging disc with mild central canal narrowing. There is mild disc encroachment on the caudal neural foramen bilaterally. The L4-5 disc space level demonstrates mild bilateral facet arthrosis and ligamentum flavum hypertrophy. There is mild bulging disc with flattening of the anterior thecal sac and mild central canal narrowing. There is mild disc encroachment on the caudal neural foramen bilaterally. The L5-S1 disc space level demonstrates mild bilateral facet arthrosis. Is bulging disc and marginal osteophyte asymmetric to the left. There is extruded disc with vacuum phenomena posteriorly to the right of midline. This finding may contact the right S1 nerve root. There is mild central canal narrowing. There is disc and osteophyte encroachment with moderate to severe bilateral neural foraminal narrowing. Nondisplaced fractures of the left 11th and 12th rib posteriorly. Severe discogenic degenerative changes of the lumbosacral junction. There is bulging disc and right paracentral disc extrusion. Disc material may contact the right S1 nerve root and should be correlated with any clinical findings of radiculopathy. There is mild central canal narrowing at this level and [id number] bilateral neural foraminal narrowing. Signed by: Antoine Veloz 04/04/2023 7:37 AM Dictation workstation: [id number] CT cervical spine wo IV contrast Result Date: 04/04/2023 Interpreted By: Antoine Veloz, STUDY: CT CERVICAL SPINE WO IV CONTRAST; 04/04/2023 6:55 am INDICATION: Signs/Symptoms:fall. COMPARISON: None. ACCESSION NUMBER(S): [id number] ORDERING CLINICIAN: JOHANNA RIOS TECHNIQUE: Contiguous axial CT sections are performed from the skullbase to the upper thoracic spine and supplemented with coronal and sagittal reformatted images. FINDINGS: The cervical vertebral body alignment is within normal limits. The facet joints align normally. The cervical vertebral body heights are maintained. There is no sign of acute fracture. There is no bone destruction or aggressive periosteal reaction. No lytic or blastic lesion is detected. There is mild cervical spondylosis at C4-5 and mild to moderate cervical spondylosis at C5-6 and C6-7 with disc space narrowing and small marginal osteophytes. There is mild multilevel facet arthrosis and uncovertebral arthrosis. There is mild narrowing of the right neural foramen at C4-5. There is moderate narrowing of the left neural foramina C5-6 and C6-7 and mild narrowing on the right. There is mild bulging disc at C4-5 and C5-6 without significant central canal narrowing. The surrounding soft tissue structures are unremarkable. There is no prevertebral soft tissue swelling or retropharyngeal air. Anoa-[id number] lower cervical spondylosis as described above. Mild multilevel bulging disc without significant central canal narrowing. Mild and moderate multilevel neural foraminal narrowing as described above. No sign of acute fracture or subluxation. Signed by: Antoine Veloz 04/04/2023 7:24 AM Dictation workstation: [id number] CT head wo IV contrast Result Date: 04/04/2023 Interpreted By: Antoine Veloz, STUDY: CT HEAD WO IV CONTRAST; 04/04/2023 6:55 am INDICATION: fall. COMPARISON: None. ACCESSION NUMBER(S): [id number] ORDERING CLINICIAN: JOHANNA RIOS TECHNIQUE: Contiguous unenhanced axial CT sections are performed from the skull base to the vertex. FINDINGS: The osseous structures are intact. There is moderate mucoperiosteal thickening of the ethmoid air cells. The cortical sulci and CSF spaces are symmetric in appearance. There is no sign of parenchymal hematoma or dense extra-axial fluid collection. There is no localized edema, mass effect, or shift of the midline. The liriano matter/white matter differentiation is preserved. There is a 2 3 mm basal ganglia calcification on the right. No CT evidence of acute intracranial hemorrhage or mass effect. Mucoperiosteal thickening of the ethmoid air cells. Signed by: Antoine Veloz 04/04/2023 7:21 AM Dictation workstation: [id number] Assessment Patient Active Problem List Diagnosis Closed fracture of one rib, unspecified laterality, initial encounter Fall, initial encounter Multiple closed fractures of ribs of left side Essential hypertension Plan: Pain control Continue pulmonary toileting Continue chest tube per Thoracics Encourage ambulation PT/OT Discharge planning Further recommendations per Dr. Garcia Agree with note above except where noted below. Patient underwent replating today. He was in significant amount of pain afterwards. Chest tube in place without air leak. Serosanguineous drainage. 47-year-old male status post fall and multiple rib fractures including 1 displaced rib fracture now postop day 0 from rib plating. Admitted to ICU appreciate their care Pain control okay with using intermittent doses or concerns of ketamine Needs optimal pulmonary toilet, he does have good incentive spirometry but he still secretions need to be coughed up Continue chest tubes per Thoracics Current ambulation PT OT Discharge planning Chris Garcia MD 04/09/23 7:06 PM Music Therapy Note Ford Phelan was referred by Pain rounds Therapy Session Referral Type: Pain rounds Visit Type: Follow-up visit Session Start Time: 1429 Session End Time: 1434 Intervention Delivery: In-person Conflict of Service: None Pre-assessment Pain Score: 7 Stress Level (0-10): 0 Anxiety Level (0-10): 0 Mood/Affect: Calm, Cooperative, Appropriate Verbalized Emotional State: Acceptance Treatment/Interventions Music Therapy Interventions: Assessment, Termination Post-assessment Unable to Assess Reason: Did not provide expressive therapy intervention Total Session Time (min): 5 minutes Education Documentation Resources, taught by Valeri Muñiz at 04/11/2023 11:44 AM. Learner: Patient Readiness: Acceptance Method: Explanation Response: Verbalizes Understanding Coping Strategies, taught by Valeri Muñiz at 04/11/2023 11:44 AM. Learner: Patient Readiness: Acceptance Method: Explanation Response: Verbalizes Understanding Relaxation, taught by Valeri Muñiz at 04/11/2023 11:44 AM. Learner: Patient Readiness: Acceptance Method: Explanation Response: Verbalizes Understanding Regiments, taught by Valeri Muñiz at 04/11/2023 11:44 AM. Learner: Patient Readiness: Acceptance Method: Explanation Response: Verbalizes Understanding Integrative Health, taught by Valeri Muñiz at 04/11/2023 11:44 AM. Learner: Patient Readiness: Acceptance Method: Explanation Response: Verbalizes Understanding Focal Points, taught by Valeri Muñiz at 04/11/2023 11:44 AM. Learner: Patient Readiness: Acceptance Method: Explanation Response: Verbalizes Understanding Pain Management, taught by Valeri Muñiz at 04/11/2023 11:44 AM. Learner: Patient Readiness: Acceptance Method: Explanation Response: Verbalizes Understanding Physical Therapy Therapy Communication Note Patient Name: Ford Phelan Today's Date: 04/09/2023 Discipline: Physical Therapy Missed Visit Reason: Missed Visit Reason: Patient scheduled for repair of chest wall, L VATS, rib plating today. Hold PT at this time Missed Time: Attempt Comment: Pt remains afebrile and hemodynamically stable. Maintaining SR. Adequate SpO2 on RA. Reports pain that is decently controlled. Denies change to respiratory status and denies SOB. For rib plating tomorrow. NPO after MN, IVF as ordered. 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 There were no acute overnight events. Physical Therapy Therapy Communication Note Patient Name: Ford Phelan Today's Date: 04/08/2023 Discipline: Physical Therapy Missed Visit Reason: Missed Visit Reason: Per ortho, patient is going to surgery tomorrow for rib plating. Spoke with evaluating PT. Will hold physical therapy at this time. Missed Time: Attempt Comment: Ford Phelan is a 47 y.o. male on day 2 of admission presenting with Closed fracture of one rib, unspecified laterality, initial encounter. Subjective Patient seen and examined this morning. No acute events overnight. Objective Physical Exam HENT: Head: Normocephalic and atraumatic. Mouth/Throat: Mouth: Mucous membranes are dry. Pharynx: Oropharynx is clear. Eyes: Extraocular Movements: Extraocular movements intact. Pupils: Pupils are equal, round, and reactive to light. Cardiovascular: Rate and Rhythm: Normal rate and regular rhythm. Pulses: Normal pulses. Heart sounds: S1 normal and S2 normal. Pulmonary: Effort: Pulmonary effort is normal. Breath sounds: Normal breath sounds. Chest: Chest wall: Tenderness present. Abdominal: General: Abdomen is flat. Bowel sounds are normal. There is no distension. Palpations: Abdomen is soft. Tenderness: There is no abdominal tenderness. There is no guarding. Musculoskeletal: General: No swelling or tenderness. Normal range of motion. Cervical back: Normal range of motion. Skin: General: Skin is warm and dry. Capillary Refill: Capillary refill takes less than 2 seconds. Neurological: General: No focal deficit present. Mental Status: He is alert and oriented to person, place, and time. Psychiatric: Attention and Perception: Attention normal. Mood and Affect: Mood normal. Speech: Speech normal. Behavior: Behavior normal. Behavior is cooperative. Last Recorded Vitals Blood pressure 126/78, pulse 65, temperature 36.1 C (97 F), temperature source Temporal, resp. rate 16, height 1.854 m (6' 1), weight 84.1 kg (185 lb 6.5 oz), SpO2 93 %. Intake/Output last 3 Shifts: I/O last 3 completed shifts: In: 606 (7.2 mL/kg) [P.O.:600; I.V.:6 (0.1 mL/kg)] Out: 2100 (25 mL/kg) [Urine:2100 (0.7 mL/kg/hr)] Weight: 84.1 kg Relevant Results Lab Results Component Value Date WBC 7.8 04/08/2023 HGB 13.5 04/08/2023 HCT 37.6 (L) 04/08/2023 MCV 103 (H) 04/08/2023 PLT 135 (L) 04/08/2023 Lab Results Component Value Date GLUCOSE 93 04/08/2023 CALCIUM 8.0 (L) 04/08/2023 NA 134 (L) 04/08/2023 K 3.8 04/08/2023 CO2 30 04/08/2023 CL 98 04/08/2023 BUN 11 04/08/2023 CREATININE 0.57 04/08/2023 Assessment/Plan Subjective Patient resting comfortably in bed. States he had increased pain overnight to his left rib cage. He has a good, nonproductive cough. On examination his breath sounds are clear and equal bilaterally. He denies shortness of breath. He is instructed to use his incentive spirometer 10 times every hour. Plan is for him to go to surgery tomorrow for a rib plate. 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 Has excellent some spirometry with 2.5 L. Still having a significant amount of pain on exertion or breathing. Discussed and seen by thoracic surgery. He does have a displaced rib fracture that may be causing a significant amount of his pain. Determined he might be a good candidate for rib plating. We will confirm with thoracic surgery, but tentatively plan to go to the OR tomorrow for rib plating. He will need to be n.p.o. after midnight with IV fluids. Will remain In-house for now. Chris Garcia MD 11:07 AM 04/08/23 Occupational Therapy Evaluation Patient Name: Ford Phelan Today's Date: 04/07/2023 Time Calculation Start Time: 1130 Stop Time: 1142 Time Calculation (min): 12 min Assessment: OT Assessment: Pt. with pain, fatigue, decreased strength and endurance. Increased level of assist for ADLs, transfer End of Session Patient Position: Up in chair, Alarm off, not on at start of session OT Assessment Results: Decreased ADL status, Decreased upper extremity strength, Decreased endurance, Decreased IADLs, Decreased functional mobility Plan: Treatment Interventions: ADL retraining, Functional transfer training, Endurance training OT Frequency: 2 times per week OT Discharge Recommendations: Moderate intensity level of continued care, High intensity level of continued care Treatment Interventions: ADL retraining, Functional transfer training, Endurance training Subjective Current Problem: 1. Fall, initial encounter 2. Closed fracture of multiple ribs of left side, initial encounter Case Request Operating Room: Repair Chest Wall, left VATS, rib plating Case Request Operating Room: Repair Chest Wall, left VATS, rib plating 3. Lumbar disc herniation 4. Hypokalemia General: General Reason for Referral: ADL impairment Referred By: PT/OT 04/04/23 Jose Past Medical History Relevant to Rehab: HTN, + smoker, ETOH Patient Position Received: Up in chair, Alarm off, not on at start of session General Comment: To ED 04/04/23 s/p falal. Was getting out of shower stepping over tub and slipped. Landed on edge of tub. + Opiates; CXR 04/04/23 Fx left posterolateral 9-12 ribs; remote fracture left posterior 5-7 ribs; CT 04/04/23 Head (-); Cervical spine (-) Fx; Lumbar spine Severe discogenic degenerative changes; Rightparacentral extrusion; Ethanol 204 Precautions: Medical Precautions: Fall precautions, Oxygen therapy device and L/min (CIWA) Precautions Comment: Pt. with nasal cannula, telemetry Vital Signs: Heart Rate: 75 SpO2: 98 % (4L 02 removed for activity. Drop to93%. reapplied 02) BP: 107/62 Pain: Pain Assessment Pain Assessment: 0-10 Pain Score: 9 Pain Type: Acute pain Pain Location: Rib cage Pain Orientation: Left Objective Cognition: Overall Cognitive Status: Within Functional Limits Orientation Level: Oriented X4 Home Living: Home Living Comments: Pt. lives alone in apartment. 7 steps with HR. Has tub shower with grab bars. Laundry is on the same floor. Prior Function: ADL Assistance: Independent Homemaking Assistance: Independent Ambulatory Assistance: Independent Prior Function Comments: 1 fall. Drives. Works in [employer]. IADL History: IADL Comments: independent ADL: Eating Assistance: Independent Grooming Assistance: Moderate Bathing Assistance: Maximal UE Dressing Assistance: Minimal LE Dressing Assistance: Maximal Toileting Assistance with Device: Moderate Functional Deficit: Steadying, Supervision/safety, Increased time to complete (pain, fatigue) Activity Tolerance: Endurance: Decreased tolerance for upright activites Bed Mobility/Transfers: Bed Mobility Bed Mobility: No Transfers Transfer: Yes Transfer 1 Technique 1: Sit to stand Transfer Device 1: Walker Transfer Level of Assistance 1: Maximum assistance Trials/Comments 1: x2 person assist to lift, steady, balance, and weight shift forward over walker. Increased time to complete Ambulation/Gait Training: Ambulation/Gait Training Ambulation/Gait Training Performed: (unable) Standing Balance: Dynamic Standing Balance Dynamic Standing-Comments: poor + Strength: Strength Comments: unable to formally assess due to pain. Extremities: RUE RUE : Within Functional Limits and LUE LUE: Within Functional Limits (Limited this date due to pain) Outcome Measures:[facility] Daily Activity Putting on and taking off regular lower body clothing: A lot Bathing (including washing, rinsing, drying): A lot Putting on and taking off regular upper body clothing: A little Toileting, which includes using toilet, bedpan or urinal: A lot Taking care of personal grooming such as brushing teeth: A lot Eating Meals: None Daily Activity - Total Score: 15 Education Documentation ADL Training, taught by Carol Ngo OT at 04/07/2023 2:53 PM. Learner: Patient Readiness: Acceptance Method: Explanation Response: Verbalizes Understanding, Needs Reinforcement Education Comments No comments found. Goals: Encounter Problems Encounter Problems (Active) OT Goals SBA for all functional transfers (Progressing) Start: 04/07/23 Expected End: 04/21/23 SBA donning/doffing pants (Progressing) Start: 04/07/23 Expected End: 04/21/23 Fair + dyn standing balance sinkside for grooming (Progressing) Start: 04/07/23 Expected End: 04/21/23 SBA for toileting tasks and clothing mgmt (Progressing) Start: 04/07/23 Expected End: 04/21/23 Physical Therapy Physical Therapy Evaluation Patient Name: Ford Phelan Today's Date: 04/07/2023 Time Calculation Start Time: 1129 Stop Time: 1141 Time Calculation (min): 12 min Assessment/Plan PT Assessment PT Assessment Results: Decreased strength, Impaired balance, Decreased mobility, Decreased endurance, Decreased safety awareness, Pain Rehab Prognosis: Good Evaluation/Treatment Tolerance: Patient limited by fatigue, Patient limited by pain Assessment Comment: Patient will benefit from additional PT to increase strength, actiivty tolerance and mobility End of Session Patient Position: Up in chair, Alarm off, not on at start of session IP OR SWING BED PT PLAN Inpatient or Swing Bed: Inpatient PT Plan Treatment/Interventions: Bed mobility, Transfer training, Gait training, Stair training, Therapeutic exercise, Therapeutic activity PT Plan: Skilled PT PT Frequency: 4 times per week PT Discharge Recommendations: Moderate intensity level of continued care PT Recommended Transfer Status: Assist x2 Subjective General Visit Information: General Reason for Referral: Impaired mobility Referred By: PT/OT 04/04/23 Jose Past Medical History Relevant to Rehab: HTn, + smoker, ETOH Patient Position Received: Up in chair, Alarm off, not on at start of session General Comment: To ED 04/04/23 s/p jose. Was getting out of shower stepping over tub and slipped. Landed on edge of tub. + Opiates; CXR 04/04/23 Fx left posterolateral 9-12 ribs; remote fracture left posterior 5-7 ribs; CT 04/04/23 Head (-); Cervical spine (-) Fx; Lumbar spine Severe discogenic degenerative changes; Rightparacentral extrusion; Ethanol 204 Home Living: Home Living Home Living Comments: Per patient report resides alone 1 floor 7 steps to enter with handrail from front, no steps in back. Prior to injury independent in mobilty, ADLs and IADLs without AD. 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 Precautions: Precautions Medical Precautions: Fall precautions, Oxygen therapy device and L/min Splinting: Use of pillows and folded up blankets for splint Precautions Comment: CIWA Vital Signs: Vital Signs Heart Rate: (Pre activity 77 Post activity 99) SpO2: (Pre activity 98% on 4 liters oxygen; Post activity 93% RA. Oxygen reapplied) Objective Pain: Pain Assessment Pain Score: 9 Pain Location: Rib cage Pain Orientation: Left Cognition: Cognition Overall Cognitive Status: Within Functional Limits Orientation Level: Oriented X4 General Assessments: General Observation General Observation: Patient siting up in chair Agreeable to PT/OT. Telemetry, oxygen 4 liters. Activity Tolerance Endurance: (Patient very limited due to pain and respiratory issues. from rib fx.) Static Sitting Balance Static Sitting-Comment/Number of Minutes: Good Dynamic Sitting Balance Dynamic Sitting-Comments: Fair + Static Standing Balance Static Standing-Comment/Number of Minutes: Fair Dynamic Standing Balance Dynamic Standing-Comments: Poor Functional Assessments: Transfers Transfer: (Sit <> stand at recliner level + 2 maximal assist. Patient very limited in use of LUE to push from arm of chair. Requires boost with bed pad. Provided WW in front for patient to use for support. Sitting down vc to reach back and lower self down.) Ambulation/Gait Training Ambulation/Gait Training Performed: (Attempted to ambulate patient with support of ww. Patient tends to adopt flexed hip/knee posture WBOS Unable to offload either LE to take step + 2maximal assist. Patient reports earlier ambulating to bathroom with 2 nursing staff.) Extremity/Trunk Assessments: RUE RUE : Within Functional Limits LUE LUE: Within Functional Limits RLE RLE : (AROM: Hip/knee/ankle WFL; MMT Hip 3-/5; knee/ankle 3+/5) LLE LLE : (AROM: Hip/knee/ankle WFL; MMT Hip 3-/5; knee/ankle 3+/5) Outcome Measures: [facility] Basic Mobility Turning from your back to your side while in a flat bed without using bedrails: A lot Moving from lying on your back to sitting on the side of a flat bed without using bedrails: A lot Moving to and from bed to chair (including a wheelchair): A lot Standing up from a chair using your arms (e.g. wheelchair or bedside chair): A lot To walk in hospital room: Total Climbing 3-5 steps with railing: Total Basic Mobility - Total Score: 10 Encounter Problems Encounter Problems (Active) PT Problem Bed mobility supine <> side lying <> sit CGA (Progressing) Start: 04/07/23 Expected End: 04/21/23 Transfers sit <> stand /bed<> chair with ww CGA (Progressing) Start: 04/07/23 Expected End: 04/21/23 Patient to ambulate with WW 50' CGA (Not Progressing) Start: 04/07/23 Expected End: 04/21/23 Education Documentation Mobility Training, taught by Liz Parkinson PT at 04/07/2023 12:56 PM. Learner: Patient Readiness: Acceptance Method: Demonstration, Explanation Response: Demonstrated Understanding, Needs Reinforcement Education Comments No comments found. 04/07/23 1017 Discharge Planning Living Arrangements Alone Support Systems Friends/neighbors Assistance Needed denies Type of Residence Private residence Do you have animals or pets at home? Yes Home or Post Acute Services None Patient expects to be discharged to: HOME Prefers HOME no needs. PT/OT eval pending. ETOH history, SW aware. Ford Phelan is a 47 y.o. male on day 1 of admission presenting with Closed fracture of one rib, unspecified laterality, initial encounter. Subjective Patient seen and examined this morning. No acute events overnight. Objective Physical Exam HENT: Head: Normocephalic and atraumatic. Mouth/Throat: Mouth: Mucous membranes are dry. Pharynx: Oropharynx is clear. Eyes: Extraocular Movements: Extraocular movements intact. Pupils: Pupils are equal, round, and reactive to light. Cardiovascular: Rate and Rhythm: Normal rate and regular rhythm. Pulses: Normal pulses. Heart sounds: S1 normal and S2 normal. Pulmonary: Effort: Pulmonary effort is normal. Breath sounds: Normal breath sounds. Chest: Chest wall: Tenderness present. Abdominal: General: Abdomen is flat. Bowel sounds are normal. There is no distension. Palpations: Abdomen is soft. Tenderness: There is no abdominal tenderness. There is no guarding. Musculoskeletal: General: No swelling or tenderness. Normal range of motion. Cervical back: Normal range of motion. Skin: General: Skin is warm and dry. Capillary Refill: Capillary refill takes less than 2 seconds. Neurological: General: No focal deficit present. Mental Status: He is alert and oriented to person, place, and time. Psychiatric: Attention and Perception: Attention normal. Mood and Affect: Mood normal. Speech: Speech normal. Behavior: Behavior normal. Behavior is cooperative. Last Recorded Vitals Blood pressure 119/71, pulse 66, temperature 36.4 C (97.5 F), temperature source Temporal, resp. rate 12, height 1.854 m (6' 1), weight 84.1 kg (185 lb 6.5 oz), SpO2 94 %. Intake/Output last 3 Shifts: I/O last 3 completed shifts: In: 2382.9 (28.3 mL/kg) [P.O.:600; I.V.:1632.9 (19.4 mL/kg); IV Piggyback:150] Out: 1425 (16.9 mL/kg) [Urine:1425 (0.5 mL/kg/hr)] Weight: 84.1 kg Relevant Results Lab Results Component Value Date WBC 6.8 04/07/2023 HGB 13.3 (L) 04/07/2023 HCT 36.9 (L) 04/07/2023 MCV 103 (H) 04/07/2023 PLT 118 (L) 04/07/2023 Lab Results Component Value Date GLUCOSE 107 (H) 04/07/2023 CALCIUM 8.1 (L) 04/07/2023 NA 131 (L) 04/07/2023 K 3.5 04/07/2023 CO2 31 04/07/2023 CL 95 (L) 04/07/2023 BUN 9 04/07/2023 CREATININE 0.56 04/07/2023 Assessment/Plan Subjective Patient resting comfortably in bed. His pain is currently well controlled. Discussion was had with patient on discontinuing COMPENSATOR Dilaudid pump and encouraged him to ambulate. Patient reports increased pain when he coughs. He was encouraged to get up and sit in the chair today. On examination his breath sounds are equal and clear bilaterally, but decreased. He has tenderness to his left chest wall. Impression Status post left ninth through 12th rib fracture Plan Pain control DVT prophylaxis with Lovenox 30 mg daily PT/OT Discontinue COMPENSATOR pump Continue phenobarb taper Continue pulmonary toileting Okay to transfer to regular nursing floor Principal Problem: Closed fracture of one rib, unspecified laterality, initial encounter Active Problems: Fall, initial encounter Carlotta Chong, [employer]OUTE RET[employer]NER[employer]PIT MANAGER Agree with note above except where noted below Patient is doing much better resting comfortably in bed. No evidence of any further withdrawal. COMPENSATOR has been removed and pain is controlled with p.o. pain medications and IV intermittent including Robaxin, Toradol, Dilaudid. Patient is taking well over 1200 cc on his incentive spirometer. Status post 9 through 12th left rib fracture For regular nursing floor DVT prophylaxis with Lovenox PT/OT Continue phenobarb taper Pulmonary toilet Continue pain regimen Once pain is adequately controlled in the regular nursing floor, discharge either home or to rehab depending on what PT and OT say. Chris Garcia MD 04/07/23 11:16 AM [facility] Critical Care Medicine Date: 04/07/2023 Patient: Ford Phelan Date of : 1975 Admit Date: 04/04/2023 ======== Chief Complaint Patient presents with Fall Pt slipped getting out of the shower and fell forward, hit left side of body on the bath tub. History of Present Illness: Ford Phelan is a 47 y.o. year old male patient with Past Medical History of hypertension, vit b12 deficiency, alcohol abuse, daily smoker. Patient has a history of alcohol abuse and has been admitted at [facility] in the past for alcoholic pancreatitis as well as alcohol withdrawal. Patient arrived to [facility] emergency department 04/04 with complaints of mechanical fall at home while getting out of the shower. He had his left side on the edge of the bathtub. He denies hitting his head or losing consciousness. In the emergency department he was afebrile, stable vital signs, oxygen saturations low 90s on room air, pain with inspiration. Full trauma work-up was done which demonstrated fractures of the left ninth through 12th ribs. Alcohol level 204. Patient was admitted to the ICU with trauma consult for pain management and aggressive pulmonary hygiene. Interval ICU Events: 04/04: Trauma alert for fall in shower. Left 9th -12th rib fractures. Alcohol level 204. Admitted to ICU for pain management and pulmonary hygiene. 04/05: No acute events overnight. Continues to complain of left-sided chest pain secondary to rib fractures. Hemodynamically stable. No significant laboratory abnormalities. No signs of alcohol withdrawal this morning. Discussed with surgery, will add COMPENSATOR Dilaudid for better pain control. Per surgery recommendations will place on phenobarbital taper for alcohol withdrawal prevention. 04/06: Some withdraw symptoms. Low-dose precedex started. 04/07: Doing well thus AM. Reports that pain is the biggest issue today. NO further signs or symptoms of EtOH withdrawal. Medical History: Past Medical History: Diagnosis Date High blood pressure No past surgical history on file. Medications Prior to Admission Medication Sig Dispense Refill Last Dose albuterol 90 mcg/actuation aerosol powdr breath activated inhaler Inhale 2 puffs every 4 hours if needed for wheezing. Unknown clonazePAM (KlonoPIN) 0.5 mg tablet Take 0.5 tablets (0.25 mg) by mouth 2 times a day as needed for anxiety. Unknown hydroCHLOROthiazide (HYDRODiuril) 12.5 mg tablet Take 1 tablet (12.5 mg) by mouth once daily. 04/02/2023 lisinopril 20 mg tablet Take 1 tablet (20 mg) by mouth once daily. 04/02/2023 sertraline (Zoloft) 100 mg tablet Take 1 tablet (100 mg) by mouth once daily. 04/02/2023 thiamine 100 mg tablet Take 1 tablet (100 mg) by mouth once daily. 04/02/2023 Bupropion Social History Tobacco Use Smoking status: Every Day Packs/day: 1 Types: Cigarettes Start date: 1997 Smokeless tobacco: Never Vaping Use Vaping Use: Every day Substance Use Topics Alcohol use: Yes Alcohol/week: 2.0 standard drinks of alcohol Types: 2 Standard drinks or equivalent per week Drug use: Never No family history on file. Hospital Medications: HYDROmorphone, Current Facility-Administered Medications: acetaminophen (Tylenol) tablet 975 mg, 975 mg, oral, q8h, FRANKIE Huynh, DNP, 975 mg at 04/07/23 0801 albuterol 90 mcg/actuation inhaler 2 puff, 2 puff, inhalation, q4h PRN, Chris Garcia MD enoxaparin (Lovenox) syringe 30 mg, 30 mg, subcutaneous, q12h, Chris Garcia MD, 30 mg at 04/06/23 2320 folic acid (Folvite) tablet 1 mg, 1 mg, oral, Daily, FRANKIE Harris, 1 mg at 04/07/23 0800 guaiFENesin (Mucinex) 12 hr tablet 600 mg, 600 mg, oral, BID PRN, Chris Garcia MD, 600 mg at 04/06/23 1146 hydroCHLOROthiazide (HYDRODiuril) tablet 12.5 mg, 12.5 mg, oral, Daily, FRANKIE Harris, 12.5 mg at 04/07/23 0800 hydromorphone COMPENSATOR 0.5 mg/mL in NS opioid naive, , intravenous, Continuous, FRANKIE Harris, Rate Verify at 04/06/23 1148 ketorolac (Toradol) injection 15 mg, 15 mg, intravenous, q6h, Silvia Juares DO lidocaine 4 % patch 1 patch, 1 patch, transdermal, Daily, Chris Hutchinson, FRANKIE, DNP, 1 patch at 04/07/23 0800 lisinopril tablet 20 mg, 20 mg, oral, Daily, Praneeth Anderson APRN-AMANDA, 20 mg at 04/07/23 0801 magnesium oxide (Mag-Ox) tablet 800 mg, 800 mg, oral, Daily, Praneeth Anderson APRN-AMANDA, 800 mg at 04/07/23 0800 magnesium sulfate IV 2 g, 2 g, intravenous, Once, Jens Parrish, FRANKIE, Last Rate: 25 mL/hr at 04/07/23 0759, 2 g at 04/07/23 0759 melatonin tablet 6 mg, 6 mg, oral, Nightly, Nessa Shepherd, DAYANARA-PIT MANAGER, 6 mg at 04/06/23 2120 methocarbamol (Robaxin) tablet 1,000 mg, 1,000 mg, oral, q8h KORIN, Silvia Juares, , 1,000 mg at 04/07/23 0516 multivitamin with minerals 1 tablet, 1 tablet, oral, Daily, FRANKIE Harris, 1 tablet at 04/07/23 0801 naloxone (Narcan) injection 0.2 mg, 0.2 mg, intravenous, q5 min PRN, Chris Garcia MD naloxone (Narcan) injection 0.2 mg, 0.2 mg, intravenous, q5 min PRN, Chris Garcia MD naloxone (Narcan) injection 0.2 mg, 0.2 mg, intravenous, PRN, FRANKIE Harris nicotine (Nicoderm CQ) 21 mg/24 hr patch 1 patch, 1 patch, transdermal, Daily, 1 patch at 04/06/23 0845 FOLLOWED BY [START ON 05/16/2023] nicotine (Nicoderm CQ) 14 mg/24 hr patch 1 patch, 1 patch, transdermal, Daily FOLLOWED BY [START ON 05/30/2023] nicotine (Nicoderm CQ) 7 mg/24 hr patch 1 patch, 1 patch, transdermal, Daily, Nessa Shepherd [employer] MANAGER ondansetron ODT (Zofran-ODT) disintegrating tablet 4 mg, 4 mg, oral, q8h PRN OR ondansetron (Zofran) injection 4 mg, 4 mg, intravenous, q8h PRN, Chris Garcia MD oxygen (O2) therapy, , inhalation, Continuous PRN - O2/gases, Chris Garcia MD, 3 L/min at 04/06/23 1300 [COMPLETED] PHENobarbitaL (Luminal) tablet 97.2 mg, 97.2 mg, oral, TID, 97.2 mg at 04/06/232119 FOLLOWED BY PHENobarbitaL (Luminal) tablet 64.8 mg, 64.8 mg, oral, TID FOLLOWED BY [START ON 04/09/2023] PHENobarbitaL (Luminal) tablet 32.4 mg, 32.4 mg, oral, TID, Praneeth Anderson, ROUTE RET[employer]NER[employer]PIT MANAGER polyethylene glycol (Glycolax, Miralax) packet 17 g, 17 g, oral, Daily, Chris Garcia MD, 17 g at 04/07/23 0801 sertraline (Zoloft) tablet 100 mg, 100 mg, oral, Daily, Chris Garcia MD, 100 mg at 04/07/23 0801 thiamine (Vitamin B-1) tablet 100 mg, 100 mg, oral, Daily, Chris Garcia MD, 100 mg at 04/06/23 0846 Review of Systems: 14 point review of systems was completed and negative except for those specially mention in my HPI Physical Exam: Heart Rate: [64-88] Temp: [36.3 C (97.3 F)-37.1 C (98.8 F)] Resp: [12-29] BP: (102-134)/(65-93) SpO2: [86 %-96 %] Awake and alert AAOx 4 C/O pain Uncomfortable in appearance Some splinting noted with deep inspiration, chest wall tender, lungs clear RRR Abdomen soft, non distended Extremities warm, no swelling noted. Objective: I have reviewed all medications, laboratory results, and imaging pertinent for today's encounter. Intake/Output Summary (Last 24 hours) at 04/07/2023 0808 Last data filed at 04/07/2023 0600 Gross per 24 hour Intake 1107.49 ml Output 900 ml Net 207.49 ml Recent Imaging XR chest 1 view Final Result 1. No acute cardiopulmonary process. 2. Redemonstration of acute left posterolateral 9th through 12th rib fractures that are better evaluated on the previous CT chest study. More remote fractures of left posterior 5th through 7th ribs noted as well. MACRO: None. Signed by: Brittney Holder 04/05/2023 9:10 AM Dictation workstation: [id number] CT thoracic spine wo IV contrast Final Result Nondisplaced fractures of the posterior 12th, 11th, 10th rib. Ribs are incompletely visualized with this field of view. Trace left pleural effusion or hemothorax. No sign of thoracic vertebral body fracture or malalignment. No CT evidence of central canal stenosis. Signed by: Antoine Veloz 04/04/2023 7:41 AM Dictation workstation: [id number] CT lumbar spine wo IV contrast Final Result Nondisplaced fractures of the left 11th and 12th rib posteriorly. Severe discogenic degenerative changes of the lumbosacral junction. There is bulging disc and right paracentral disc extrusion. Disc material may contact the right S1 nerve root and should be correlated with any clinical findings of radiculopathy. There is mild central canal narrowing at this level and [id number] bilateral neural foraminal narrowing. Signed by: Antoine Veloz 04/04/2023 7:37 AM Dictation workstation: [id number] CT chest abdomen pelvis w IV contrast Final Result Fractures of the posterior and posterolateral left 12th, 11th, 10th, and 9th rib. Trace left hemothorax. There is no sizable pneumothorax. Severe fatty metamorphosis of the liver. Severe discogenic degenerative changes at the lumbosacral junction, described in detail on the CT lumbar spine examination of the same day. The remainder of the chest, abdomen, and pelvis is unremarkable. There is no evidence solid or hollow visceral injury. Signed by: Antoine Veloz 04/04/2023 7:48 AM Dictation workstation: [id number] CT head wo IV contrast Final Result No CT evidence of acute intracranial hemorrhage or mass effect. Mucoperiosteal thickening of the ethmoid air cells. Signed by: Antoine Veloz 04/04/2023 7:21 AM Dictation workstation: [id number] CT cervical spine wo IV contrast Final Result [id number] lower cervical spondylosis as described above. Mild multilevel bulging disc without significant central canal narrowing. Mild and moderate multilevel neural foraminal narrowing as described above. No sign of acute fracture or subluxation. Signed by: Antoine Veloz 04/04/2023 7:24 AM Dictation workstation: [id number] XR chest 1 view Final Result No radiographic evidence of acute cardiopulmonary pathology. MACRO: None. Signed by: Sadi Figueroa 04/04/2023 4:56 AM Dictation workstation: [id number] XR chest 1 view (Results Pending) XR chest 1 view (Results Pending) No echocardiogram results found for the past 14 days Assessment/Plan: I am currently managing this critically ill patient for the following problems: Multiple rib fractures s/p fall Acute posttraumatic pain History of alcohol use disorder Acute alcohol withdrawal: Improved History of depression History of anxiety Hypoxia on supplemental oxygen History of hypertension Alcoholic cirrhosis Neuro/Psych/Pain Ctrl/Sedation: Multimodal pain control: Scheduled Tylenol, Robaxin, Lidoderm patch. Discontinue COMPENSATOR, start oral oxycodone with as needed Dilaudid. Add scheduled Toradol. Continue home Zoloft Phenobarbital taper for alcohol withdrawal, holding home clonazepam Thiamine/folate CIWA Add Trazodone PRN Sleep Respiratory/ENT: Continue supplemental oxygen, currently on 3L nasal cannula, wean as able Status primary at bedside, currently pulling 1200 DuoNebs as needed Nicotine patch ordered Cardiovascular: Maintain MAP greater than 65, not currently on any vasoactive agents Continue home hydrochlorothiazide/lisinopril GI: Tolerating diet Renal/Volume Status (Intra & Extravascular): Urine output/electrolytes acceptable, no need for TRUSS ASSEMBLER Endocrine Maintain euglycemia, no insulin needed Infectious Disease: No systemic infectious concerns, monitoring off systemic antibiotics Heme/Onc: Thrombocytopenia in the setting of liver disease, no indication for transfusion at this time. Transfuse for symptomatic anemia, no current indication OBGYN/MSK: Trauma following, PT/OT American Sign Language Teacher: DVT Prophylaxis: Lovenox GI Prophylaxis: No indication Bowel Regimen: PRN Diet: Regular CVC: No Jannet: No Spear: No Restraints: No Dispo: Okay for floor from my perspective Silvia Juares DO Ford Phelan is a 47 y.o. male on day 0 of admission presenting with Closed fracture of one rib, unspecified laterality, initial encounter. Subjective Patient became significantly agitated overnight with concern for alcohol withdrawal. Upon further inquiry the patient, he drinks at least 7-8 beers per day. Denies any previous withdrawal symptoms however this would be the appropriate timeframe the patient would start the presenting with withdrawal. He was started on phenobarbital but even still required a Precedex drip which was off this morning. He is breathing easier but still has some pain and was placed on a COMPENSATOR pump overnight. Objective Physical Exam Gen: Ill but non-toxic appearing, Aax3, mild generalized tremors Lungs: CTAB, taking in 1250ml on ISS but with significant pain Last Recorded Vitals Blood pressure 120/88, pulse 72, temperature 37 C (98.6 F), temperature source Temporal, resp. rate 20, height 1.854 m (6' 1), weight 84.1 kg (185 lb 6.5 oz), SpO2 94 %. Intake/Output last 3 Shifts: I/O last 3 completed shifts: In: 3897.1 (46.3 mL/kg) [I.V.:3642.1 (43.3 mL/kg); IV Piggyback:255] Out: 2275 (27.1 mL/kg) [Urine:2275 (0.8 mL/kg/hr)] Weight: 84.1 kg Relevant Results This patient currently has cardiac telemetry ordered; if you would like to modify or discontinue the telemetry order, click here to go to the orders activity to modify/discontinue the order. Component Latest Ref Rng 04/06/2023 GLUCOSE 74 - 99 mg/dL 84 GLUCOSE 74 - 99 mg/dL 82 SODIUM 136 - 145 mmol/L 134 (L) SODIUM 136 - 145 mmol/L 133 (L) POTASSIUM 3.5 - 5.3 mmol/L 3.5 POTASSIUM 3.5 - 5.3 mmol/L 3.5 CHLORIDE 98 - 107 mmol/L 96 (L) CHLORIDE 98 - 107 mmol/L 95 (L) Bicarbonate 21 - 32 mmol/L 30 Bicarbonate 21 - 32 mmol/L 29 Anion Gap 10 - 20 mmol/L 12 Anion Gap 10 - 20 mmol/L 13 Blood Urea Nitrogen 6 - 23 mg/dL 8 Blood Urea Nitrogen 6 - 23 mg/dL 9 Creatinine 0.50 - 1.30 mg/dL 0.55 Creatinine 0.50 - 1.30 mg/dL 0.52 EGFR >60 mL/min/1.73m*2 >90 EGFR >60 mL/min/1.73m*2 >90 Calcium 8.6 - 10.3 mg/dL 7.9 (L) Calcium 8.6 - 10.3 mg/dL 8.0 (L) Albumin 3.4 - 5.0 g/dL 3.0 (L) Alkaline Phosphatase 33 - 120 U/L 134 (H) Total Protein 6.4 - 8.2 g/dL 5.1 (L) AST 9 - 39 U/L 132 (H) Bilirubin Total 0.0 - 1.2 mg/dL 4.3 (H) ALT 10 - 52 U/L 71 (H) WBC 4.4 - 11.3 x10*3/uL 5.6 nRBC 0.0 - 0.0 /100 WBCs 0.0 RBC 4.50 - 5.90 x10*6/uL 3.54 (L) HEMOGLOBIN 13.5 - 17.5 g/dL 13.1 (L) HEMATOCRIT 41.0 - 52.0 % 36.6 (L) MCV 80 - 100 fL 103 (H) MCH 26.0 - 34.0 pg 37.0 (H) MCHC 32.0 - 36.0 g/dL 35.8 RED CELL DISTRIBUTION WIDTH 11.5 - 14.5 % 13.0 Platelets 150 - 450 x10*3/uL 108 (L) MAGNESIUM 1.60 - 2.40 mg/dL 1.63 PHOSPHORUS 2.5 - 4.9 mg/dL 2.3 (L) Legend: (L) Low (H) High Assessment/Plan Principal Problem: Closed fracture of one rib, unspecified laterality, initial encounter Active Problems: Fall, initial encounter Hospital day 2 from fall with rib fractures. Patient is breathing much easier with the COMPENSATOR involved, having 1250 on his incentive spirometer, however patient is now demonstrating signs of withdrawal. Okay for diet Continue optimize pain regimen including COMPENSATOR Phenobarb taper with CIWA protocol While the patient is off Precedex, I would like to keep him in the unit for every 24 hours to make sure that he does not require any significant intervention regarding his alcohol withdrawal prior to transfer to the regular nursing floor. I spent 42 minutes in the professional and overall care of this patient. Chris Garcia MD 04/06/23 11:26 AM [facility] Critical Care Medicine Date: 04/06/2023 Patient: Ford Phelan Date of : 1975 Admit Date: 04/04/2023 ======== Chief Complaint Patient presents with Fall Pt slipped getting out of the shower and fell forward, hit left side of body on the bath tub. History of Present Illness: Ford Phelan is a 47 y.o. year old male patient with Past Medical History of hypertension, vit b12 deficiency, alcohol abuse, daily smoker. Patient has a history of alcohol abuse and has been admitted at [facility] in the past for alcoholic pancreatitis as well as alcohol withdrawal. Patient arrived to [facility] emergency department 04/04 with complaints of mechanical fall at home while getting out of the shower. He had his left side on the edge of the bathtub. He denies hitting his head or losing consciousness. In the emergency department he was afebrile, stable vital signs, oxygen saturations low 90s on room air, pain with inspiration. Full trauma work-up was done which demonstrated fractures of the left ninth through 12th ribs. Alcohol level 204. Patient was admitted to the ICU with trauma consult for pain management and aggressive pulmonary hygiene. Interval ICU Events: 04/04: Trauma alert for fall in shower. Left 9th -12th rib fractures. Alcohol level 204. Admitted to ICU for pain management and pulmonary hygiene. 04/05: No acute events overnight. Continues to complain of left-sided chest pain secondary to rib fractures. Hemodynamically stable. No significant laboratory abnormalities. No signs of alcohol withdrawal this morning. Discussed with surgery, will add COMPENSATOR Dilaudid for better pain control. Per surgery recommendations will place on phenobarbital taper for alcohol withdrawal prevention. 04/06: Some withdraw symptoms. Low-dose precedex started. Medical History: Past Medical History: Diagnosis Date High blood pressure No past surgical history on file. Medications Prior to Admission Medication Sig Dispense Refill Last Dose albuterol 90 mcg/actuation aerosol powdr breath activated inhaler Inhale 2 puffs every 4 hours if needed for wheezing. Unknown clonazePAM (KlonoPIN) 0.5 mg tablet Take 0.5 tablets (0.25 mg) by mouth 2 times a day as needed for anxiety. Unknown hydroCHLOROthiazide (HYDRODiuril) 12.5 mg tablet Take 1 tablet (12.5 mg) by mouth once daily. 04/02/2023 lisinopril 20 mg tablet Take 1 tablet (20 mg) by mouth once daily. 04/02/2023 sertraline (Zoloft) 100 mg tablet Take 1 tablet (100 mg) by mouth once daily. 04/02/2023 thiamine 100 mg tablet Take 1 tablet (100 mg) by mouth once daily. 04/02/2023 Bupropion Social History Tobacco Use Smoking status: Every Day Packs/day: 1 Types: Cigarettes Start date: 1997 Smokeless tobacco: Never Vaping Use Vaping Use: Every day Substance Use Topics Alcohol use: Yes Alcohol/week: 2.0 standard drinks of alcohol Types: 2 Standard drinks or equivalent per week Drug use: Never No family history on file. Hospital Medications: dexmedeTOMIDine, 0.1-1.5 mcg/kg/hr, Last Rate: 0.2 mcg/kg/hr (04/06/23599) HYDROmorphone, lactated Ringer's, 75 mL/hr, Last Rate: 75 mL/hr (04/06/23599) Current Facility-Administered Medications: acetaminophen (Tylenol) tablet 650 mg, 650 mg, oral, q4h PRN OR acetaminophen (Tylenol) oral liquid 650 mg, 650 mg, nasogastric tube, q4h PRN OR acetaminophen (Tylenol) suppository 650 mg, 650 mg, rectal, q4h PRN, FRANKIE Vences albuterol 90 mcg/actuation inhaler 2 puff, 2 puff, inhalation, q4h PRN, Chris Garcia MD dexmedeTOMIDine in NS (Precedex) 400 mcg in 100 mL (4 mcg/mL) infusion, 0.1-1.5 mcg/kg/hr, intravenous, Continuous, FRANKIE Vences, Last Rate: 4.12 mL/hr at 04/06/23599, 0.2 mcg/kg/hr at 04/06/23 06 enoxaparin (Lovenox) syringe 30 mg, 30 mg, subcutaneous, q12h, Chris Garcia MD, 30 mg at 04/05/23 2216 folic acid (Folvite) tablet 1 mg, 1 mg, oral, Daily, FRANKIE Harris, 1 mg at 04/05/23 0838 hydroCHLOROthiazide (HYDRODiuril) tablet 12.5 mg, 12.5 mg, oral, Daily, FRANKIE Harris, 12.5 mg at 04/05/23 0836 hydromorphone COMPENSATOR 0.5 mg/mL in NS opioid naive, , intravenous, Continuous, FRANKIE Harris, New Syringe/Cartridge at 04/05/23 1359 ketorolac (Toradol) injection 15 mg, 15 mg, intravenous, q6h PRN, Chris Garcia MD, 15 mg at 04/05/23 1650 lactated Ringer's infusion, 75 mL/hr, intravenous, Continuous, Chris Garcia MD, Last Rate: 75 mL/hr at 04/06/23 0600, 75 mL/hr at 04/06/23 0600 lidocaine 4 % patch 1 patch, 1 patch, transdermal, Daily, Chris Garcia MD, 1 patch at 04/05/23 0845 lisinopril tablet 20 mg, 20 mg, oral, Daily, Praneeth Anderson APRN-PIT MANAGER, 20 mg at 04/05/23 0837 magnesium oxide (Mag-Ox) tablet 800 mg, 800 mg, oral, Daily, Praneeth Anderson APRN-PIT MANAGER, 800 mg at 04/05/23 0837 melatonin tablet 6 mg, 6 mg, oral, Nightly, Nessa Shepherd ROUTE RETURNER-PIT MANAGER, 6 mg at 04/05/23 2155 methocarbamol (Robaxin) tablet 1,000 mg, 1,000 mg, oral, q8h KORIN, Nessa Shepherd ROUTE RETURNER-PIT MANAGER, 1,000 mg at 04/06/23 0637 multivitamin with minerals 1 tablet, 1 tablet, oral, Daily, Praneeth Anderson APRN-PIT MANAGER, 1 tablet at 04/05/23 0838 naloxone (Narcan) injection 0.2 mg, 0.2 mg, intravenous, q5 min PRN, Chris Garcia MD naloxone (Narcan) injection 0.2 mg, 0.2 mg, intravenous, q5 min PRN, Chris Garcia MD naloxone (Narcan) injection 0.2 mg, 0.2 mg, intravenous, PRN, Praneeth Anderson ROUTE RETURNER-PIT MANAGER nicotine (Nicoderm CQ) 21 mg/24 hr patch 1 patch, 1 patch, transdermal, Daily, 1 patch at 04/05/23 0900 FOLLOWED BY [START ON 05/16/2023] nicotine (Nicoderm CQ) 14 mg/24 hr patch 1 patch, 1 patch, transdermal, Daily FOLLOWED BY [START ON 05/30/2023] nicotine (Nicoderm CQ) 7 mg/24 hr patch 1 patch, 1 patch, transdermal, Daily, Nessa Shepherd ROUTE RETURNER-PIT MANAGER ondansetron ODT (Zofran-ODT) disintegrating tablet 4 mg, 4 mg, oral, q8h PRN OR ondansetron (Zofran) injection 4 mg, 4 mg, intravenous, q8h PRN, Chris Garcia MD [Held by provider] oxyCODONE (Roxicodone) immediate release tablet 10 mg, 10 mg, oral, q4h PRN, Chris Garcia MD, 10 mg at 04/05/23 0838 [Held by provider] oxyCODONE (Roxicodone) immediate release tablet 5 mg, 5 mg, oral, q4h PRN, Chris Garcia MD oxygen (O2) therapy, , inhalation, Continuous PRN - O2/gases, Chris Garcia MD PHENobarbital (Luminal) injection 130 mg, 130 mg, intravenous, q2h PRN, FRANKIE Vences PHENobarbitaL (Luminal) tablet 97.2 mg, 97.2 mg, oral, TID, 97.2 mg at 04/05/232154 FOLLOWED BY [START ON 04/07/2023] PHENobarbitaL (Luminal) tablet 64.8 mg, 64.8 mg, oral, TID FOLLOWED BY [START ON 04/09/2023] PHENobarbitaL (Luminal) tablet 32.4 mg, 32.4 mg, oral, TID, FRANKIE Harris polyethylene glycol (Glycolax, Miralax) packet 17 g, 17 g, oral, Daily, Chris Garcia MD, 17 g at 04/05/23 0839 potassium phosphates 15 mmol in dextrose 5 % in water (D5W) 250 mL IV, 15 mmol, intravenous, Once, FRANKIE Vences prochlorperazine (Compazine) tablet 10 mg, 10 mg, oral, q6h PRN OR prochlorperazine (Compazine) injection 10 mg, 10 mg, intravenous, q6h PRN OR prochlorperazine (Compazine) suppository 25 mg, 25 mg, rectal, q12h PRN, Chris Garcia MD sertraline (Zoloft) tablet 100 mg, 100 mg, oral, Daily, Chris Garcia MD, 100 mg at 04/05/23 0837 thiamine (Vitamin B-1) tablet 100 mg, 100 mg, oral, Daily, Chris Garcia MD, 100 mg at 04/05/23 0837 Review of Systems: 14 point review of systems was completed and negative except for those specially mention in my HPI Physical Exam: Heart Rate: [62-110] Temp: [37 C (98.6 F)-37.2 C (99 F)] Resp: [11-34] BP: (99-170)/(61-105) Weight: [84.1 kg (185 lb 6.5 oz)] SpO2: [90 %-99 %] Physical Exam Constitutional: General: He is not in acute distress. Appearance: Normal appearance. He is not ill-appearing or toxic-appearing. HENT: Head: Normocephalic and atraumatic. Mouth/Throat: Mouth: Mucous membranes are moist. Pharynx: Oropharynx is clear. Eyes: Extraocular Movements: Extraocular movements intact. Pupils: Pupils are equal, round, and reactive to light. Cardiovascular: Rate and Rhythm: Normal rate and regular rhythm. Pulses: Normal pulses. Heart sounds: Normal heart sounds. No murmur heard. No gallop. Pulmonary: Effort: Pulmonary effort is normal. Breath sounds: Normal breath sounds. Chest: Chest wall: Tenderness present. Abdominal: General: Abdomen is flat. There is no distension. Palpations: Abdomen is soft. Tenderness: There is no abdominal tenderness. Musculoskeletal: General: No swelling or tenderness. Normal range of motion. Cervical back: Normal range of motion and neck supple. Skin: General: Skin is warm and dry. Capillary Refill: Capillary refill takes less than 2 seconds. Neurological: General: No focal deficit present. Mental Status: He is alert and oriented to person, place, and time. Objective: I have reviewed all medications, laboratory results, and imaging pertinent for today's encounter. Intake/Output Summary (Last 24 hours) at 04/06/2023 0722 Last data filed at 04/06/2023 0600 Gross per 24 hour Intake 2502.06 ml Output 1475 ml Net 1027.06 ml Recent Imaging XR chest 1 view Final Result 1. No acute cardiopulmonary process. 2. Redemonstration of acute left posterolateral 9th through 12th rib fractures that are better evaluated on the previous CT chest study. More remote fractures of left posterior 5th through 7th ribs noted as well. MACRO: None. Signed by: Brittney Holder 04/05/2023 9:10 AM Dictation workstation: [id number] CT thoracic spine wo IV contrast Final Result Nondisplaced fractures of the posterior 12th, 11th, 10th rib. Ribs are incompletely visualized with this field of view. Trace left pleural effusion or hemothorax. No sign of thoracic vertebral body fracture or malalignment. No CT evidence of central canal stenosis. Signed by: Antoine Veloz 04/04/2023 7:41 AM Dictation workstation: [id number] CT lumbar spine wo IV contrast Final Result Nondisplaced fractures of the left 11th and 12th rib posteriorly. Severe discogenic degenerative changes of the lumbosacral junction. There is bulging disc and right paracentral disc extrusion. Disc material may contact the right S1 nerve root and should be correlated with any clinical findings of radiculopathy. There is mild central canal narrowing at this level and [id number] bilateral neural foraminal narrowing. Signed by: Antoine Veloz 04/04/2023 7:37 AM Dictation workstation: [id number] CT chest abdomen pelvis w IV contrast Final Result Fractures of the posterior and posterolateral left 12th, 11th, 10th, and 9th rib. Trace left hemothorax. There is no sizable pneumothorax. Severe fatty metamorphosis of the liver. Severe discogenic degenerative changes at the lumbosacral junction, described in detail on the CT lumbar spine examination of the same day. The remainder of the chest, abdomen, and pelvis is unremarkable. There is no evidence solid or hollow visceral injury. Signed by: Antoine Veloz 04/04/2023 7:48 AM Dictation workstation: [id number] CT head wo IV contrast Final Result No CT evidence of acute intracranial hemorrhage or mass effect. Mucoperiosteal thickening of the ethmoid air cells. Signed by: Antoine Veloz 04/04/2023 7:21 AM Dictation workstation: [id number] CT cervical spine wo IV contrast Final Result [id number] lower cervical spondylosis as described above. Mild multilevel bulging disc without significant central canal narrowing. Mild and moderate multilevel neural foraminal narrowing as described above. No sign of acute fracture or subluxation. Signed by: Antoine Veloz 04/04/2023 7:24 AM Dictation workstation: [id number] XR chest 1 view Final Result No radiographic evidence of acute cardiopulmonary pathology. MACRO: None. Signed by: Sadi Figueroa 04/04/2023 4:56 AM Dictation workstation: [id number] No echocardiogram results found for the past 14 days Assessment/Plan: I am currently managing this critically ill patient for the following problems: Neuro/Psych/Pain Ctrl/Sedation: -started on precedex overnight for reported agitation, did not get PRN phenobarb, at 0.2 this am, no signs of withdraw, stopped this AM. 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 Alcohol Abuse History History of alcohol abuse, has had extensive workup at [facility] in the July 2022, transaminitis slightly worse on this admission -coags normal -Trend daily CMP -Thiamine, Folate, Multivitamins -Phenobarbital taper -Monitor CIWA score Renal/Volume Status (Intra & Extravascular): Hypokalemia Secondary to chronic alcohol abuse, likely poor oral nutrition -stop MIV, hydrate orally -Daily BMP and electrolyte repletion Endocrine No active issues Infectious Disease: No active issues Heme/Onc: Chronic Thrombocytopenia In setting of hepatic staetosis and alcohol abuse -Trend daily CBC OBGYN/MSK: Mechanical Fall with 9th-12th Left Sided Rib Fractures -Multimodal pain control -Scheduled tylenol, robaxin, lidocaine patches (changed PRN tylenol to scheduled) -As needed toradol, (encourace nursing to use these PRN medications when needed) -Dilaudid for better pain control -Trauma following, appreciate further recommendations American Sign Language Teacher: DVT Prophylaxis: Lovenox GI Prophylaxis: No indication Bowel Regimen: PRN Diet: Regular CVC: No [place]: No Spear: No Restraints: No Dispo: ICU Critical Care Time: 45 minutes FRANKIE Huynh DNP Ford Phelan is a 47 y.o. male on day 0 of admission presenting with Closed fracture of one rib, unspecified laterality, initial encounter. Subjective Patient seen and examined this morning. No acute events overnight. Objective Physical Exam HENT: Head: Normocephalic and atraumatic. Mouth/Throat: Mouth: Mucous membranes are dry. Pharynx: Oropharynx is clear. Eyes: Extraocular Movements: Extraocular movements intact. Pupils: Pupils are equal, round, and reactive to light. Cardiovascular: Rate and Rhythm: Normal rate and regular rhythm. Pulses: Normal pulses. Heart sounds: S1 normal and S2 normal. Pulmonary: Effort: Pulmonary effort is normal. Breath sounds: Normal breath sounds. Decreased air movement present. Chest: Breasts: Left: Tenderness present. Comments: Tenderness to palpation to the left chest Abdominal: General: Abdomen is flat. Bowel sounds are normal. There is no distension. Palpations: Abdomen is soft. Tenderness: There is no abdominal tenderness. There is no guarding. Musculoskeletal: General: No swelling or tenderness. Normal range of motion. Cervical back: Normal range of motion. Skin: General: Skin is warm and dry. Capillary Refill: Capillary refill takes less than 2 seconds. Neurological: General: No focal deficit present. Mental Status: He is alert and oriented to person, place, and time. Psychiatric: Attention and Perception: Attention normal. Mood and Affect: Mood normal. Speech: Speech normal. Behavior: Behavior normal. Behavior is cooperative. Last Recorded Vitals Blood pressure (!) 166/102, pulse 78, temperature 36.7 C (98.1 F), temperature source Temporal, resp. rate 16, height 1.854 m (6' 1), weight 82.4 kg (181 lb 10.5 oz), SpO2 96 %. Intake/Output last 3 Shifts: I/O last 3 completed shifts: In: 2398.8 (29.1 mL/kg) [P.O.:480; I.V.:1818.8 (22.1 mL/kg); IV Piggyback:100] Out: 800 (9.7 mL/kg) [Urine:800 (0.3 mL/kg/hr)] Weight: 82.4 kg Relevant Results Lab Results Component Value Date WBC 6.7 04/05/2023 HGB 14.0 04/05/2023 HCT 38.3 (L) 04/05/2023 MCV 102 (H) 04/05/2023 PLT 132 (L) 04/05/2023 Lab Results Component Value Date GLUCOSE 82 04/05/2023 CALCIUM 8.0 (L) 04/05/2023 NA 135 (L) 04/05/2023 K 3.2 (L) 04/05/2023 CO2 31 04/05/2023 CL 96 (L) 04/05/2023 BUN 6 04/05/2023 CREATININE 0.56 04/05/2023 Assessment/Plan Subjective Patient resting comfortably in bed. He endorses left chest pain secondary to left ninth through 12th rib fracture. He is able to pull 1250 on the incentive spirometer. He is instructed to use this 10 times every hour. His breath sounds are equal but diminished. His tertiary assessment is otherwise unremarkable. We will add a COMPENSATOR Dilaudid pump to control his pain and a phenobarbital taper to avoid alcohol withdrawal. Impression Left 9 through 12 rib fractures secondary to fall Plan Continue aggressive pulmonary toileting Start Dilaudid COMPENSATOR pump for pain control Phenobarbital taper due to alcohol abuse history Continue care per ICU team Trauma will continue to follow Further recommendations per Dr. Garcia Principal Problem: Closed fracture of one rib, unspecified laterality, initial encounter Carlotta Chong APRN-AMANDA Agree with note above except where noted below. Patient had significant pain overnight. He was splinting this morning. This is despite him having Robaxin and narcotics. We will shoe puller 1000ml this morning on his incentive spirometer. It was found that he had an alcohol over 200 and he does drink. No additional traumatic findings were found on tertiary exam today. If patient has pain better controlled today he can go to the floor. Discussed with ICU about start a COMPENSATOR on him. We will need phenobarb taper as well given his alcoholism. Can have a diet. While in the ICU appreciate recommendations and wildlife management professor. Chris Garcia MD 04/05/23 12:02 PM [facility] Critical Care Medicine Date: 04/05/2023 Patient: Ford Phelan Date of : 1975 Admit Date: 04/04/2023 ======== Chief Complaint Patient presents with Fall Pt slipped getting out of the shower and fell forward, hit left side of body on the bath tub. History of Present Illness: Ford Phelan is a 47 y.o. year old male patient with Past Medical History of hypertension, vit b12 deficiency, alcohol abuse, daily smoker. Patient has a history of alcohol abuse and has been admitted at [facility] in the past for alcoholic pancreatitis as well as alcohol withdrawal. Patient arrived to [facility] emergency department 04/04 with complaints of mechanical fall at home while getting out of the shower. He had his left side on the edge of the bathtub. He denies hitting his head or losing consciousness. In the emergency department he was afebrile, stable vital signs, oxygen saturations low 90s on room air, pain with inspiration. Full trauma work-up was done which demonstrated fractures of the left ninth through 12th ribs. Alcohol level 204. Patient was admitted to the ICU with trauma consult for pain management and aggressive pulmonary hygiene. Interval ICU Events: 04/04: Trauma alert for fall in shower. Left 9th -12th rib fractures. Alcohol level 204. Admitted to ICU for pain management and pulmonary hygiene. 04/05: No acute events overnight. Continues to complain of left-sided chest pain secondary to rib fractures. Hemodynamically stable. No significant laboratory abnormalities. No signs of alcohol withdrawal this morning. Discussed with surgery, will add COMPENSATOR Dilaudid for better pain control. Per surgery recommendations will place on phenobarbital taper for alcohol withdrawal prevention. Medical History: Past Medical History: Diagnosis Date High blood pressure No past surgical history on file. Medications Prior to Admission Medication Sig Dispense Refill Last Dose albuterol 90 mcg/actuation aerosol powdr breath activated inhaler Inhale 2 puffs every 4 hours if needed for wheezing. Unknown clonazePAM (KlonoPIN) 0.5 mg tablet Take 0.5 tablets (0.25 mg) by mouth 2 times a day as needed for anxiety. Unknown hydroCHLOROthiazide (HYDRODiuril) 12.5 mg tablet Take 1 tablet (12.5 mg) by mouth once daily. 04/02/2023 lisinopril 20 mg tablet Take 1 tablet (20 mg) by mouth once daily. 04/02/2023 sertraline (Zoloft) 100 mg tablet Take 1 tablet (100 mg) by mouth once daily. 04/02/2023 thiamine 100 mg tablet Take 1 tablet (100 mg) by mouth once daily. 04/02/2023 Bupropion Social History Tobacco Use Smoking status: Every Day Packs/day: 1 Types: Cigarettes Start date: 1997 Smokeless tobacco: Never Vaping Use Vaping Use: Every day Substance Use Topics Alcohol use: Yes Alcohol/week: 2.0 standard drinks of alcohol Types: 2 Standard drinks or equivalent per week Drug use: Never No family history on file. Hospital Medications: lactated Ringer's, 75 mL/hr, Last Rate: 75 mL/hr (04/05/23 0600) Current Facility-Administered Medications: acetaminophen (Tylenol) tablet 650 mg, 650 mg, oral, q4h PRN OR acetaminophen (Tylenol) oral liquid 650 mg, 650 mg, nasogastric tube, q4h PRN OR acetaminophen (Tylenol) suppository 650 mg, 650 mg, rectal, q4h PRN, FRANKIE Vences albuterol 90 mcg/actuation inhaler 2 puff, 2 puff, inhalation, q4h PRN, Chris Garcia MD chlordiazePOXIDE (Librium) capsule 25 mg, 25 mg, oral, q6h, Nessa Shepherd APRN-AMANDA, 25 mg at 04/05/23 0554 [START ON 04/06/2023] chlordiazePOXIDE (Librium) capsule 25 mg, 25 mg, oral, q12h, Nessa Shepherd APRN-AMANDA [START ON 04/07/2023] chlordiazePOXIDE (Librium) capsule 25 mg, 25 mg, oral, Nightly, FRANKIE Vences enoxaparin (Lovenox) syringe 30 mg, 30 mg, subcutaneous, q12h, Chris Garcia MD, 30 mg at 04/04/23 2257 folic acid (Folvite) tablet 1 mg, 1 mg, oral, Daily, Praneeth Anderson APRN-AMANDA, 1 mg at 04/04/23 1332 hydroCHLOROthiazide (HYDRODiuril) tablet 12.5 mg, 12.5 mg, oral, Daily, Praneeth Anderson APRN-AMANDA, 12.5 mg at 04/04/23 1332 HYDROmorphone (Dilaudid) injection 0.5 mg, 0.5 mg, intravenous, q2h PRN, Chris Garcia MD, 0.5 mg at 04/05/23 0341 ketorolac (Toradol) injection 15 mg, 15 mg, intravenous, q6h PRN, Chris Garcia MD lactated Ringer's infusion, 75 mL/hr, intravenous, Continuous, Chris Garcia MD, Last Rate: 75 mL/hr at 04/05/23 0600, 75 mL/hr at 04/05/23 0600 lidocaine 4 % patch 1 patch, 1 patch, transdermal, Daily, Chris Garcia MD lisinopril tablet 20 mg, 20 mg, oral, Daily, FRANKIE Harris, 20 mg at 04/04/23 1332 LORazepam (Ativan) tablet 0.5 mg, 0.5 mg, oral, q4h PRN, FRANKIE Vences magnesium oxide (Mag-Ox) tablet 800 mg, 800 mg, oral, Daily, FRANKIE Harris melatonin tablet 6 mg, 6 mg, oral, Nightly, FRANKIE Vences, 6 mg at 04/05/23 0007 methocarbamol (Robaxin) tablet 1,000 mg, 1,000 mg, oral, q8h KORIN, FRANKIE Vences, 1,000 mg at 04/05/23 0555 multivitamin with minerals 1 tablet, 1 tablet, oral, Daily, FRANKIE Harris, 1 tablet at 04/04/23 1332 naloxone (Narcan) injection 0.2 mg, 0.2 mg, intravenous, q5 min PRN, Chris Garcia MD naloxone (Narcan) injection 0.2 mg, 0.2 mg, intravenous, q5 min PRN, Chris Garcia MD nicotine (Nicoderm CQ) 21 mg/24 hr patch 1 patch, 1 patch, transdermal, Daily, 1 patch at 04/04/232053 FOLLOWED BY [START ON 05/16/2023] nicotine (Nicoderm CQ) 14 mg/24 hr patch 1 patch, 1 patch, transdermal, Daily FOLLOWED BY [START ON 05/30/2023] nicotine (Nicoderm CQ) 7 mg/24 hr patch 1 patch, 1 patch, transdermal, Daily, FRANKIE Vences ondansetron ODT (Zofran-ODT) disintegrating tablet 4 mg, 4 mg, oral, q8h PRN OR ondansetron (Zofran) injection 4 mg, 4 mg, intravenous, q8h PRN, Chris Garcia MD oxyCODONE (Roxicodone) immediate release tablet 10 mg, 10 mg, oral, q4h PRN, Chris Garcia MD oxyCODONE (Roxicodone) immediate release tablet 5 mg, 5 mg, oral, q4h PRN, Chris Garcia MD oxygen (O2) therapy, , inhalation, Continuous PRN - O2/gases, Chris Garcia MD polyethylene glycol (Glycolax, Miralax) packet 17 g, 17 g, oral, Daily, Chris Garcia MD potassium chloride CR (Klor-Con M20) ER tablet 20 mEq, 20 mEq, oral, Once, FRANKIE Vences potassium phosphates 15 mmol in dextrose 5 % in water (D5W) 250 mL IV, 15 mmol, intravenous, Once, FRANKIE Vences prochlorperazine (Compazine) tablet 10 mg, 10 mg, oral, q6h PRN OR prochlorperazine (Compazine) injection 10 mg, 10 mg, intravenous, q6h PRN OR prochlorperazine (Compazine) suppository 25 mg, 25 mg, rectal, q12h PRN, Chris Garcia MD sertraline (Zoloft) tablet 100 mg, 100 mg, oral, Daily, Chris Garcia MD, 100 mg at 04/04/23 1240 thiamine (Vitamin B-1) tablet 100 mg, 100 mg, oral, Daily, Chris Garcia MD, 100 mg at 04/04/23 1239 Review of Systems: 14 point review of systems was completed and negative except for those specially mention in my HPI Physical Exam: Heart Rate: [58-86] Temp: [36.3 C (97.3 F)-36.9 C (98.4 F)] Resp: [13-22] BP: (117-185)/(80-112) Height: [185.4 cm (6' 1)] Weight: [80.3 kg (177 lb 0.5 oz)-82.4 kg (181 lb 10.5 oz)] SpO2: [0 %-98 %] Physical Exam Constitutional: General: He is not in acute distress. Appearance: Normal appearance. He is not ill-appearing or toxic-appearing. HENT: Head: Normocephalic and atraumatic. Mouth/Throat: Mouth: Mucous membranes are moist. Pharynx: Oropharynx is clear. Eyes: Extraocular Movements: Extraocular movements intact. Pupils: Pupils are equal, round, and reactive to light. Cardiovascular: Rate and Rhythm: Normal rate and regular rhythm. Pulses: Normal pulses. Heart sounds: Normal heart sounds. No murmur heard. No gallop. Pulmonary: Effort: Pulmonary effort is normal. Breath sounds: Normal breath sounds. Chest: Chest wall: Tenderness present. Abdominal: General: Abdomen is flat. There is no distension. Palpations: Abdomen is soft. Tenderness: There is no abdominal tenderness. Musculoskeletal: General: No swelling or tenderness. Normal range of motion. Cervical back: Normal range of motion and neck supple. Skin: General: Skin is warm and dry. Capillary Refill: Capillary refill takes less than 2 seconds. Neurological: General: No focal deficit present. Mental Status: He is alert and oriented to person, place, and time. Objective: I have reviewed all medications, laboratory results, and imaging pertinent for today's encounter. Intake/Output Summary (Last 24 hours) at 04/05/2023 0752 Last data filed at 04/05/2023 0600 Gross per 24 hour Intake 2398.75 ml Output 800 ml Net 1598.[address] thoracic spine wo IV contrast Final Result Nondisplaced fractures of the posterior 12th, 11th, 10th rib. Ribs are incompletely visualized with this field of view. Trace left pleural effusion or hemothorax. No sign of thoracic vertebral body fracture or malalignment. No CT evidence of central canal stenosis. Signed by: Antoine Veloz 04/04/2023 7:41 AM Dictation workstation: [id number] CT lumbar spine wo IV contrast Final Result Nondisplaced fractures of the left 11th and 12th rib posteriorly. Severe discogenic degenerative changes of the lumbosacral junction. There is bulging disc and right paracentral disc extrusion. Disc material may contact the right S1 nerve root and should be correlated with any clinical findings of radiculopathy. There is mild central canal narrowing at this level and [id number] bilateral neural foraminal narrowing. Signed by: Antoine Veloz 04/04/2023 7:37 AM Dictation workstation: [id number] CT chest abdomen pelvis w IV contrast Final Result Fractures of the posterior and posterolateral left 12th, 11th, 10th, and 9th rib. Trace left hemothorax. There is no sizable pneumothorax. Severe fatty metamorphosis of the liver. Severe discogenic degenerative changes at the lumbosacral junction, described in detail on the CT lumbar spine examination of the same day. The remainder of the chest, abdomen, and pelvis is unremarkable. There is no evidence solid or hollow visceral injury. Signed by: Antoine Veloz 04/04/2023 7:48 AM Dictation workstation: [id number] CT head wo IV contrast Final Result No CT evidence of acute intracranial hemorrhage or mass effect. Mucoperiosteal thickening of the ethmoid air cells. Signed by: Antoine Veloz 04/04/2023 7:21 AM Dictation workstation: [id number] CT cervical spine wo IV contrast Final Result Whtu-sd-purffdfj lower cervical spondylosis as described above. Mild multilevel bulging disc without significant central canal narrowing. Mild and moderate multilevel neural foraminal narrowing as described above. No sign of acute fracture or subluxation. Signed by: Antoine Veloz 04/04/2023 7:24 AM Dictation workstation: [id number] XR chest 1 view Final Result No radiographic evidence of acute cardiopulmonary pathology. MACRO: None. Signed by: Sadi Figueroa 04/04/2023 4:56 AM Dictation workstation: [id number] XR chest 1 view (Results Pending) No echocardiogram results found for the past 14 days Assessment/Plan: I am currently managing this critically ill patient for the following problems: Neuro/Psych/Pain Ctrl/Sedation: No active issues -Pain control as below -Neuro checks per ICU protocol -Monitor CIWA Respiratory/ENT: Respiratory Insufficiency Secondary to left sided 9th-12th rib fractures from mechanical fall -Multimodal pain control as below -No currently requiring oxygen, keep spO2 > 92% -Aggressive pulmonary hygiene Cardiovascular: Hypertension -Continue home Lisinopril and HCTZ GI: 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 Alcohol Abuse History History of alcohol abuse, has had extensive workup at [facility] in the July 2022, transaminitis slightly worse on this admission -Check coags -Trend daily CMP -Thiamine, Folate, Multivitamins -Phenobarbital taper -Monitor CIWA score Renal/Volume Status (Intra & Extravascular): Hypokalemia Secondary to chronic alcohol abuse, likely poor oral nutrition -MIV @ 75ml/hr -Daily BMP and electrolyte repletion Endocrine No active issues Infectious Disease: No active issues Heme/Onc: Chronic Thrombocytopenia In setting of hepatic staetosis and alcohol abuse -Trend daily CBC OBGYN/MSK: Mechanical Fall with 9th-12th Left Sided Rib Fractures -Multimodal pain control -Scheduled tylenol, robaxin, lidocaine patches -As needed toradol, oxycodone -Add COMPENSATOR Dilaudid for better pain control -Trauma following, appreciate further recommendations American Sign Language Teacher: DVT Prophylaxis: Lovenox GI Prophylaxis: No indication Bowel Regimen: PRN Diet: Regular CVC: No [place]: No Spear: No Restraints: No Dispo: ICU Critical Care Time: 35 minutes FRANKIE Harris Music Therapy Note Ford Phelan was referred by Pain rounds Pre-assessment Unable to Assess Reason: Emotional distress Other Pain Scale: FLACC Pain Rating: FLACC (Rest) - Face: Occasional grimace or frown, withdrawn, disinterested Pain Rating: FLACC (Rest) - Legs: Uneasy, restless, tense Pain Rating: FLACC (Rest) - Activity: Squirming, shifting back and forth, tense Pain Rating: FLACC (Rest) - Cry: No cry (Awake or asleep) Pain Rating: FLACC (Rest) - Consolability: Reassured by occasional touch, hug or being talked to Score: FLACC (Rest): 4 Mood/Affect: Anxious, Calm Treatment/Interventions Music Therapy Interventions: Assessment Post-assessment Unable to Assess Reason: Did not provide expressive therapy intervention Narrative Assessment Detail: PT sitting up in bed looking out at the door when MT arrived. PT shared they were concerned with making sure they received their dinner since they were just moved to another floor. PT shared they were having some concerns with health and feeling unsure of whats currently going on and the possibility of procedures they're trying to cope through. Intervention: MT provided education and assessment of MT interventions to help reduce anxiety and improve relaxation and meditative responses through music. PT declined at this time and wants a follow up the next day. Follow-up: MT to follow up the next day. Education Documentation Resources, taught by Valeri Muñiz at 04/08/2023 11:17 AM. Learner: Patient Readiness: Acceptance Method: Explanation Response: Verbalizes Understanding Coping Strategies, taught by Valeri Muñiz at 04/08/2023 11:17 AM. Learner: Patient Readiness: Acceptance Method: Explanation Response: Verbalizes Understanding Relaxation, taught by Valeri Muñiz at 04/08/2023 11:17 AM. Learner: Patient Readiness: Acceptance Method: Explanation Response: Verbalizes Understanding Regiments, taught by Valeri Muñiz at 04/08/2023 11:17 AM. Learner: Patient Readiness: Acceptance Method: Explanation Response: Verbalizes Understanding Integrative Health, taught by Valeri Muñiz at 04/08/2023 11:17 AM. Learner: Patient Readiness: Acceptance Method: Explanation Response: Verbalizes Understanding Focal Points, taught by Valeri Muñiz at 04/08/2023 11:17 AM. Learner: Patient Readiness: Acceptance Method: Explanation Response: Verbalizes Understanding Pain Management, taught by Valeri Muñiz at 04/08/2023 11:17 AM. Learner: Patient Readiness: Acceptance Method: Explanation Response: Verbalizes Understanding Expressive Therapies Note Music Therapy Note Ford Phelan was referred by Pain rounds Therapy Session Referral Type: Pain rounds Visit Type: Follow-up visit Session Start Time: 1618 Session End Time: 1642 Intervention Delivery: In-person Conflict of Service: None Pre-assessment Unable to Assess Reason: Emotional distress Pain Score: 6 Other Pain Scale: FLACC Pain Rating: FLACC (Rest) - Face: Occasional grimace or frown, withdrawn, disinterested Pain Rating: FLACC (Rest) - Legs: Uneasy, restless, tense Pain Rating: FLACC (Rest) - Activity: Squirming, shifting back and forth, tense Pain Rating: FLACC (Rest) - Cry: No cry (Awake or asleep) Pain Rating: FLACC (Rest) - Consolability: Reassured by occasional touch, hug or being talked to Score: FLACC (Rest): 4 Stress Level (0-10): 0 Anxiety Level (0-10): 0 Coping Level (0-10): 8 Mood/Affect: Appropriate, Calm Verbalized Emotional State: Acceptance Treatment/Interventions Areas of Focus: Pain management Music Therapy Interventions: Music-assisted relaxation and imagery (PATIENCE) Post-assessment Unable to Assess Reason: Did not provide expressive therapy intervention Pain Score: 5 - Moderate pain Stress Level (0-10): 0 Anxiety Level (0-10): 0 Mood/Affect: Appropriate, Calm Verbalized Emotional State: Acceptance Total Session Time (min): 24 minutes Narrative Assessment Detail: PT lying in bed watching TV. PT shared they were feeling pain and this was their main concern at this time. PT without worry or concern regarding surgery tomorrow and feel confident. PT accepted MT interventions. Plan: To implement PATIENCE interventions to increase education and relaxation to reduce pain perception. Intervention: MT implmented body scan interventions with a focus on breathing without causing PT more discomfort from coughing. PT was invited to close their eyes and follow along in intervention. Evaluation: PT engaged approprately and with eyes closed. PT aroused post session and shared positive reactions to session. PT reported a reduction in pain perception. Follow-up: MT to follow up next day after PT surgery. Education Documentation Resources, taught by Valeri Muñiz at 04/09/2023 11:04 AM. Learner: Patient Readiness: Acceptance Method: Demonstration Response: Demonstrated Understanding Coping Strategies, taught by Valeri Muñiz at 04/09/2023 11:04 AM. Learner: Patient Readiness: Acceptance Method: Demonstration Response: Demonstrated Understanding Relaxation, taught by Valeri Muñiz at 04/09/2023 11:04 AM. Learner: Patient Readiness: Acceptance Method: Demonstration Response: Demonstrated Understanding Regiments, taught by Valeri Muñiz at 04/09/2023 11:04 AM. Learner: Patient Readiness: Acceptance Method: Demonstration Response: Demonstrated Understanding Integrative Health, taught by Valeri Muñiz at 04/09/2023 11:04 AM. Learner: Patient Readiness: Acceptance Method: Demonstration Response: Demonstrated Understanding Focal Points, taught by Valeri Muñiz at 04/09/2023 11:04 AM. Learner: Patient Readiness: Acceptance Method: Demonstration Response: Demonstrated Understanding Pain Management, taught by Valeri Muñiz at 04/09/2023 11:04 AM. Learner: Patient Readiness: Acceptance Method: Demonstration Response: Demonstrated Understanding I except this handoff pending CT study, reevaluation and disposition Patient was found to have fractures of the ninth, 10th, 11th, 12th ribs on the left with displacement of the ninth rib. Patient also has bulging disks which could possibly be contacting S1 nerve root. I did discuss this with the patient patient is having no symptoms secondary to this. He states all of his pain is located over the left ribs. Attending Dr. Magallanes evaluated the patient as well. He is concerned about patient's breathing status and is requesting patient be admitted to the ICU for pulmonary toilet. Patient also hypokalemic in which potassium was ordered for the patient. I spoke to Dr. Garcia with trauma who agrees to see the patient Historian is patient Diagnosis: Multiple left rib fractures, accidental fall, lumbar disc herniation Labs Reviewed CBC WITH AUTO DIFFERENTIAL - Abnormal Result Value WBC 8.4 nRBC 0.0 RBC 4.39 (*) Hemoglobin 16.4 Hematocrit 44.2 MCV 101 (*) MCH 37.4 (*) MCHC 37.1 (*) RDW 13.7 Platelets 136 (*) Neutrophils % 70.9 Immature Granulocytes %, Automated 0.4 Lymphocytes % 19.3 Monocytes % 7.9 Eosinophils % 0.8 Basophils % 0.7 Neutrophils Absolute 5.92 Immature Granulocytes Absolute, Automated 0.03 Lymphocytes Absolute 1.61 Monocytes Absolute 0.66 Eosinophils Absolute 0.07 Basophils Absolute 0.06 COMPREHENSIVE METABOLIC PANEL - Abnormal Glucose 112 (*) Sodium 142 Potassium 2.7 (*) Chloride 101 Bicarbonate 29 Anion Gap 15 Urea Nitrogen 6 Creatinine 0.55 eGFR >90 Calcium 8.2 (*) Albumin 3.6 Alkaline Phosphatase 139 (*) Total Protein 6.1 (*) AST 207 (*) Bilirubin, Total 1.1 ALT 113 (*) LIPASE - Abnormal Lipase 205 (*) Narrative: Venipuncture immediately after or during the administration of Metamizole may lead to falsely low results. Testing should be performed immediately prior to Metamizole dosing. MAGNESIUM - Normal Magnesium 1.72 URINALYSIS WITH REFLEX MICROSCOPIC AND CULTURE CT thoracic spine wo IV contrast Final Result Nondisplaced fractures of the posterior 12th, 11th, 10th rib. Ribs are incompletely visualized with this field of view. Trace left pleural effusion or hemothorax. No sign of thoracic vertebral body fracture or malalignment. No CT evidence of central canal stenosis. Signed by: Antoine Veloz 04/04/2023 7:41 AM Dictation workstation: [id number] CT lumbar spine wo IV contrast Final Result Nondisplaced fractures of the left 11th and 12th rib posteriorly. Severe discogenic degenerative changes of the lumbosacral junction. There is bulging disc and right paracentral disc extrusion. Disc material may contact the right S1 nerve root and should be correlated with any clinical findings of radiculopathy. There is mild central canal narrowing at this level and nyhm-wr-wjahhchx bilateral neural foraminal narrowing. Signed by: Antoine Veloz 04/04/2023 7:37 AM Dictation workstation: [id number] CT chest abdomen pelvis w IV contrast Final Result Fractures of the posterior and posterolateral left 12th, 11th, 10th, and 9th rib. Trace left hemothorax. There is no sizable pneumothorax. Severe fatty metamorphosis of the liver. Severe discogenic degenerative changes at the lumbosacral junction, described in detail on the CT lumbar spine examination of the same day. The remainder of the chest, abdomen, and pelvis is unremarkable. There is no evidence solid or hollow visceral injury. Signed by: Antoine Veloz 04/04/2023 7:48 AM Dictation workstation: [id number] CT head wo IV contrast Final Result No CT evidence of acute intracranial hemorrhage or mass effect. Mucoperiosteal thickening of the ethmoid air cells. Signed by: Antoine Veloz 04/04/2023 7:21 AM Dictation workstation: [id number] CT cervical spine wo IV contrast Final Result Tztc-ez-fcgqxujy lower cervical spondylosis as described above. Mild multilevel bulging disc without significant central canal narrowing. Mild and moderate multilevel neural foraminal narrowing as described above. No sign of acute fracture or subluxation. Signed by: Antoine Veloz 04/04/2023 7:24 AM Dictation workstation: [id number] XR chest 1 view Final Result No radiographic evidence of acute cardiopulmonary pathology. MACRO: None. Signed by: Sadi Figueroa 04/04/2023 4:56 AM Dictation workstation: [id number] Attestation of Thanh Magallanes MD This patient was seen, evaluated, treated, and dispositioned by the advanced practice provider. I performed an independent history and physical examination, discussed and reviewed pertinent aspects of the case, care, and management with the advanced practice provider, was physically available to the advanced practice provider for questions and consultation at the time the patient was being evaluated in the Emergency Department, and agree with the general content of the advanced practice provider's note, findings, and plan of care. In summary, the patient is a 47-year-old man who reports that he lost his balance while in the shower and fell striking his left flank on the side of his bathtub and has subsequently developed severe pain. He reports he does not drink alcohol every day.. PHYSICAL EXAM: VITAL SIGNS: Nursing notes reviewed. GENERAL: Alert and interactive EYES: Eyes track. No injection. ENT: Airway patent. Mucus membranes moist. RESPIRATORY: Unable to take a deep breath. Left posterior chest wall tenderness CARDIOVASCULAR: [Regular rate.] [Regular rhythm.] GASTROINTESTINAL: No distension. MUSCULOSKELETAL: No deformity. No swelling. NEUROLOGICAL: Awake. Moves extremities SKIN: Warm. Dry. The patient's ED course included CT scans, EKG, blood work and analgesia. Per my interpretation of the CT of his chest abdomen pelvis, notes any large hematomas or pneumothorax but I do see at least 4 posterior rib fractures on the left, no flail segment and there is a small pulmonary contusion. Patient is having a great deal breathing so we will control his pain aggressively and he will require hospitalization for pulmonary toilet to decrease his chance of pneumonia and further decompensation. He also had a potassium of 2.7 so we replaced this and we will continue to replace this after he is admitted.. Please refer to the advanced practice provider's note for further details of this case. documented in this encounter [facility] Work Phone: 04-11-2023 Hospital course Narrative Discharge Diagnosis Closed fracture of one rib, unspecified laterality, initial encounter Issues Requiring Follow-Up Patient to follow-up with Dr. Cox on 05/01/2023 for rib plate placement. Test Results Pending At Discharge Pending Labs Order Current Status Extra Tubes Collected (04/08/23 0705) Extra Tubes Preliminary result Lavender Top Preliminary result Hospital Course 47 year old male presented to the ER due to fall with multiple rib fractures. Imaging in the ER showed a left 9th-12th rib fracture. His hospitalization visit was complicated due to severe pain. After risks vs. Benefits were dicussed, it was decided to proceed with a rib plate placement surgery. Patient tolerated the procedure well, his pain is well controlled. He will go home today on stable condition with follow up with thoracic. Home Medications Medication List START taking these medications cyclobenzaprine 10 mg tablet; Commonly known as: Flexeril; Take 1 tablet (10 mg) by mouth 3 times a day for 7 days. docusate sodium 100 mg capsule; Commonly known as: Colace; Take 1 capsule (100 mg) by mouth 2 times a day. ondansetron ODT 4 mg disintegrating tablet; Commonly known as: Zofran-ODT; Take 1 tablet (4 mg) by mouth every 8 hours if needed for nausea. oxyCODONE 5 mg immediate release tablet; Commonly known as: Roxicodone; Take 1 tablet (5 mg) by mouth every 6 hours if needed for moderate pain (4 - 6) for up to 7 days. CONTINUE taking these medications albuterol 90 mcg/actuation aerosol powdr breath activated inhaler clonazePAM 0.5 mg tablet; Commonly known as: KlonoPIN hydroCHLOROthiazide 12.5 mg tablet; Commonly known as: HYDRODiuril lisinopril 20 mg tablet sertraline 100 mg tablet; Commonly known as: Zoloft thiamine 100 mg tablet; Commonly known as: Vitamin B-1 Outpatient Follow-Up Future Appointments Date Time Provider Department Center 05/01/2023 11:00 AM Isaac Cox MD [id number] [place] Xi Holliday PA-C documented in this encounter [facility] Work Phone: 04-11-2023 Hospital Discharge instructions Xi Holliday PA-C - 04/11/2023 11:31 AM EST Please abstain from alcohol Resources for outpatient treatment include, but are not limited to [facility] Call [phone] for locations nearest you [facility] [phone] or Hotline Use incentive spirometer 10 times every hour Use ice every hour for 15-30 minutes Don't lift anything over 10lbs until follow up Don't drive until follow up Follow up with thoracic on 05/01/2023 Come back to ER if: Fever >100.4 Fahrenheit You cannot tolerate food or water Worsening chest pain or shortness of breath Okay to remove dressing after 48 hours (On 04/12) Can shower, do not bathe or swim. documented in this encounter [facility] Work Phone: 04-11-2023 Consult note Formatting of th is note is different from the original. Consults Reason For Consult Medicine consulted HTN History Of Present Illness Ford Phelan is a 47 y.o. male presented on 04/04 with left-sided chest pain following a fall while occurred getting out of the shower. At time of admission alcohol level was 204. CT showed fractures of the ninth through the 12th rib with ninth rib placement. Patient was admitted to ICU for pain management and pulmonary hygiene. Thoracic surgery was consulted for rib plating. On 04/09 patient underwent LVATS with open reduction for intrathoracic plating of the ninth and 10th ribs, along with evacuation of hemothorax, bronchoscopy with intercostal nerve block. Patient tolerated procedure well, recovered in PAUC and transferred to ICU. Postop day #1 on 04/10, patient remained hemodynamically stable, pain well controlled with oral medications after COMPENSATOR pump was discontinued, left pleural chest tube was removed with no complications, patient was transferred to the medical floor in stable condition. Hospitalist team was consulted for management of blood pressure while on the medical floor. Patient examined and seen. Alert and oriented x3, resting comfortably. Patient denies chest pain, shortness of breath, palpitations, abdominal pain, fever or chills. He does report pain to left side of chest wall with cough or movement. Splinting area was discussed as well as importance of pulmonary hygiene. Patient verbalized understanding through teach back method. We also discussed strict follow up with providers after discharge. He voices no barriers at this time to making appointments, however, he will be recovering in [place] with family. Review of systems: 10 system were reviewed and were negative except what was mentioned in history of present illness Past Medical History HTN, Tobacco use, Alcohol Use, alcoholic pancreatitis Surgical History LVATS 04/09 Social History Daily tobacco use Daily alcohol use Denies drug use Family History No family history on file. Allergies Bupropion Physical Exam Constitutional: Well developed, awake/alert/oriented x3, , cooperative Eyes: PERRL, EOMI, clear sclera ENMT: mucous membranes moist, no apparent injury, no lesions seen Head/Neck: Neck supple, no apparent injury, thyroid without mass or tenderness Respiratory/Thorax: Patent airways, diminished bases bilaterally , no adventitious lung sounds appreciated , left chest wall tenderness anteriorly and posteriorly as 2/2 to rib fx and LVATS Cardiovascular: Regular, rate and rhythm, Gastrointestinal: Nondistended, soft, non-tender, Musculoskeletal: ROM intact, no joint swelling, Extremities: normal extremities, Skin: warm, dry, intact Left Incision to chest wall posteriorly with bandage CDI Neurological: alert/oriented x 3, speech clear, Psychiatric: appropriate mood and behavior Last Recorded Vitals BP 150/88 Pulse 66 Temp 36.8 C (98.2 F) Resp 16 Wt 81.1 kg (178 lb 12.7 oz) SpO2 96% Relevant Results Scheduled medications acetaminophen, 975 mg, oral, q8h docusate sodium, 100 mg, oral, BID folic acid, 1 mg, oral, Daily guaiFENesin, 600 mg, oral, BID heparin (porcine), 5,000 Units, subcutaneous, q8h hydroCHLOROthiazide, 12.5 mg, oral, Daily ketorolac, 15 mg, intravenous, q6h lidocaine, 1 patch, transdermal, Daily lisinopril, 20 mg, oral, Daily magnesium oxide, 800 mg, oral, Daily melatonin, 6 mg, oral, Nightly multivitamin with minerals, 1 tablet, oral, Daily nicotine, 1 patch, transdermal, Daily Followed by [START ON 05/21/2023] nicotine, 1 patch, transdermal, Daily Followed by [START ON 06/04/2023] nicotine, 1 patch, transdermal, Daily pantoprazole, 40 mg, oral, Daily before breakfast polyethylene glycol, 17 g, oral, Daily sertraline, 100 mg, oral, Daily thiamine, 100 mg, oral, Daily Continuous medications PRN medications PRN medications: albuterol, HYDROmorphone, naloxone, ondansetron ODT OR ondansetron, oxyCODONE, oxyCODONE, oxygen Results for orders placed or performed during the hospital encounter of 04/04/23 (from the past 24 hour(s)) CBC Result Value Ref Range WBC 7.3 4.4 - 11.3 x10*3/uL nRBC 0.0 0.0 - 0.0 /100 WBCs RBC 3.47 (L) 4.50 - 5.90 x10*6/uL Hemoglobin 12.7 (L) 13.5 - 17.5 g/dL Hematocrit 37.2 (L) 41.0 - 52.0 % MCV 107 (H) 80 - 100 fL MCH 36.6 (H) 26.0 - 34.0 pg MCHC 34.1 32.0 - 36.0 g/dL RDW 12.9 11.5 - 14.5 % Platelets 202 150 - 450 x10*3/uL Magnesium Result Value Ref Range Magnesium 1.78 1.60 - 2.40 mg/dL Comprehensive metabolic panel Result Value Ref Range Glucose 89 74 - 99 mg/dL Sodium 132 (L) 136 - 145 mmol/L Potassium 4.0 3.5 - 5.3 mmol/L Chloride 98 98 - 107 mmol/L Bicarbonate 26 21 - 32 mmol/L Anion Gap 12 10 - 20 mmol/L Urea Nitrogen 10 6 - 23 mg/dL Creatinine 0.57 0.50 - 1.30 mg/dL eGFR >90 >60 mL/min/1.73m*2 Calcium 8.3 (L) 8.6 - 10.3 mg/dL Albumin 2.9 (L) 3.4 - 5.0 g/dL Alkaline Phosphatase 127 (H) 33 - 120 U/L Total Protein 5.4 (L) 6.4 - 8.2 g/dL AST 28 9 - 39 U/L Bilirubin, Total 0.7 0.0 - 1.2 mg/dL ALT 25 10 - 52 U/L XR chest 1 view Result Date: 04/11/2023 Interpreted By: Miguel A Chin, STUDY: XR CHEST 1 VIEW; 04/11/2023 5:29 am INDICATION: Signs/Symptoms:post op rib plating. COMPARISON: 04/10/2023 ACCESSION NUMBER(S): [id number] ORDERING CLINICIAN: JORGE ALMODOVAR FINDINGS: CHEST/LUNGS: The cardiac and mediastinal silhouettes are unchanged in size and configuration. There is a mild area of atelectasis or infiltrate in the left base, slightly worse when compared to the previous study. Trace left effusion versus pleural thickening is unchanged. Mild atelectasis/scarring in the right base. There is a tiny left apical pneumothorax which is unchanged in size. There is subcutaneous emphysema along left chest wall, similar to the prior study. UPPER ABDOMEN: No remarkable upper abdominal findings. OSSEOUS STRUCTURES: No acute changes. Multiple left-sided rib fractures. Tiny left apical pneumothorax which is unchanged. Atelectasis/infiltrate in the left base. Multiple left-sided rib fractures. Left-sided subcutaneous emphysema. MACRO: None. Signed by: Miguel A Chin 04/11/2023 7:24 AM Dictation workstation: [id number] XR chest 1 view Result Date: 04/11/2023 Interpreted By: Miguel A Chin, STUDY: XR CHEST 1 VIEW; 04/10/2023 11:16 am INDICATION: Signs/Symptoms:r/o PTX s/p CT removal. COMPARISON: 04/10/2023 ACCESSION NUMBER(S): [id number] ORDERING CLINICIAN: BORA BARNEY FINDINGS: CHEST/LUNGS: The cardiac and mediastinal silhouettes are unchanged in size and configuration. There has been interval removal of the left chest tube. There is an area of atelectasis or infiltrate in the left base which is stable. There is a tiny left apical pneumothorax. Minimal atelectasis/scarring in the right base. No new areas of consolidation. No sizable effusion. UPPER ABDOMEN: No remarkable upper abdominal findings. OSSEOUS STRUCTURES: No acute changes. Interval removal of the left-sided chest tube with a tiny left apical pneumothorax. MACRO: None. Signed by: Miguel A Chin 04/11/2023 7:23 AM Dictation workstation: [id number] XR chest 1 view Result Date: 04/10/2023 Interpreted By: Miguel A Chin, STUDY: XR CHEST 1 VIEW; 04/10/2023 5:47 am INDICATION: Signs/Symptoms:post op rib plating. COMPARISON: 04/09/2023 ACCESSION NUMBER(S): [id number] ORDERING CLINICIAN: TAJ ENCISO FINDINGS: CHEST/LUNGS: The cardiac and mediastinal silhouettes are unchanged in size and configuration. Left-sided chest tube is unchanged in position. No sizable pneumothorax. Atelectasis/infiltrates in the left base. No sizable effusion. Mild atelectasis/scarring in the right mid lung. Persistent left-sided subcutaneous emphysema. UPPER ABDOMEN: No remarkable upper abdominal findings. OSSEOUS STRUCTURES: No acute changes. Mild atelectasis/infiltrates in the left base. No sizable pneumothorax. Left chest tube remains in place. MACRO: None. Signed by: Miguel A Chin 04/10/2023 9:14 AM Dictation workstation: [id number] XR chest 1 view Result Date: 04/09/2023 Interpreted By: Ivette Andrade, STUDY: XR CHEST 1 VIEW; 04/09/2023 5:44 pm INDICATION: Signs/Symptoms:New onset SOB post procedure. COMPARISON: 04/09/2023 ACCESSION NUMBER(S): [id number] ORDERING CLINICIAN: JORGE ALMODOVAR FINDINGS: Left-sided chest tube present. No visible pneumothorax. Left chest wall subcutaneous emphysema. Streaky bibasilar opacities suggestive of atelectasis. Normal heart size. No large pleural effusion. Left chest tube in place. No visible pneumothorax. Streaky bibasilar opacities suggesting atelectasis. Signed by: Ivette Andrade 04/09/2023 6:37 PM Dictation workstation: [id number] XR chest 1 view Result Date: 04/09/2023 Interpreted By: Brittney Holder, STUDY: Chest, single AP view. INDICATION: Signs/Symptoms:rib fractures. COMPARISON: Chest radiograph dated 04/08/2023 ACCESSION NUMBER(S): [id number] ORDERING CLINICIAN: SILVIA JUARES FINDINGS: Left apical chest tube in place. The cardiac silhouette size is within normal limits. There is no focal consolidation, edema or pneumothorax. No sizeable pleural effusion. No acute osseous abnormality. Chronic healed left posterior 5th, 6th, 7th rib fractures with cortical deformities. Additional previously described fractures of the left posterior and posterolateral 9th through 12th ribs are better evaluated on the previous CT chest study. 1. Left apical chest tube in place. No pneumothorax. 2. Chronic healed left posterior 5th, 6th, 7th rib fractures with cortical deformities. 3. Additional previously described fractures of the left posterior and posterolateral 9th through 12th ribs are better evaluated on the previous CT chest study. MACRO: None. Signed by: Brittney Holder 04/09/2023 11:49 AM Dictation workstation: [id number] XR chest 1 view Result Date: 04/08/2023 Interpreted By: Ronel Basurto, STUDY: XR CHEST 1 VIEW; 04/08/2023 9:58 am INDICATION: Signs/Symptoms:rib fractures. COMPARISON: 04/07/2023; CT chest dated 04/04/2023 ACCESSION NUMBER(S): [id number] ORDERING CLINICIAN: SILVIA JUARES FINDINGS: Heart is normal in size. There appears to be pleural and parenchymal disease at the left base. The mediastinum is unremarkable. There are multiple left rib fractures. Some of the rib fractures are old, some are acute. The patient is slightly scoliotic. COMPARISON OF FINDING: The chest is similar. Increased opacity at the left base. Multiple left-sided rib fractures. MACRO: none Signed by: Ronel Basurto 04/08/2023 11:32 AM Dictation workstation: [id number] XR chest 1 view Result Date: 04/07/2023 Interpreted By: Silvia Sood, STUDY: XR CHEST 1 VIEW; 04/06/2023 10:48 am INDICATION: Signs/Symptoms:rib fractures. COMPARISON: 04/04/2023. ACCESSION NUMBER(S): [id number] ORDERING CLINICIAN: CHRIS GARCIA FINDINGS: CARDIOMEDIASTINAL SILHOUETTE: Borderline size of the cardiac silhouette is stable. LUNGS: There is increased opacification of the left base which may be due to a combination of consolidation, volume loss and possible small volume pleural effusion. No right lung consolidation is seen. No appreciable pneumothorax. ABDOMEN: No remarkable upper abdominal findings. BONES: Multiple left-sided rib deformities are partially visualized representing a combination of nonacute and acute fractures as better seen and described on previous chest CT. 1. Partial visualization of multiple left-sided rib deformities representing a combination of nonacute and acute fractures as better seen and described on recent chest CT. No appreciable pneumothorax. 2. Increased opacification of the left base may be due to a combination of consolidation, volume loss and possible small volume pleural effusion. MACRO: None. Signed by: Silvia Sood 04/07/2023 11:27 AM Dictation workstation: [id number] XR chest 1 view Result Date: 04/07/2023 Interpreted By: Silvia Sood, STUDY: XR CHEST 1 VIEW; 04/07/2023 5:37 am INDICATION: Signs/Symptoms:rib fractures. COMPARISON: 04/06/2023. ACCESSION NUMBER(S): [id number] ORDERING CLINICIAN: CHRIS GARCIA FINDINGS: CARDIOMEDIASTINAL SILHOUETTE: Borderline size of the cardiac silhouette is stable. LUNGS: Left basilar opacification most confluent in the retrocardiac region may represent atelectasis and/or infiltrate. Small left effusion not excluded. Right midlung mild linear atelectasis or scarring is present. No appreciable pneumothorax. ABDOMEN: No remarkable upper abdominal findings. BONES: Combination of multiple left nonacute and acute rib fracture deformities are partially visualized as better seen and described on previous CT. 1. Combination of multiple left nonacute nonacute rib fracture deformities again partially visualized. 2. Left basilar opacification most confluent in the retrocardiac region again seen and may be due to a combination of atelectasis and or infiltrates. 3. No appreciable pneumothorax. MACRO: None. Signed by: Silvia Sood 04/07/2023 11:25 AM Dictation workstation: [id number] XR chest 1 view Result Date: 04/05/2023 Interpreted By: Brittney Holder, STUDY: Chest, single AP view. INDICATION: Signs/Symptoms:fu chest x-ray for rib fx. COMPARISON: CT chest 04/04/2023 and chest radiograph 04/04/2023 ACCESSION NUMBER(S): [id number] ORDERING CLINICIAN: CHRIS GARCIA FINDINGS: The cardiac silhouette size is within normal limits. There is no focal consolidation, edema or pneumothorax. No sizeable pleural effusion. No acute osseous abnormality. Redemonstration of subacute left posterolateral 9th through 12th rib fractures that are better evaluated on the previous CT chest study. More remote fractures of left posterior 5th through 7th ribs noted as well. 1. No acute cardiopulmonary process. 2. Redemonstration of acute left posterolateral 9th through 12th rib fractures that are better evaluated on the previous CT chest study. More remote fractures of left posterior 5th through 7th ribs noted as well. MACRO: None. Signed by: Brittney Holder 04/05/2023 9:10 AM Dictation workstation: [id number] CT chest abdomen pelvis w IV contrast Result Date: 04/04/2023 Interpreted By: Antoine Veloz, STUDY: CT CHEST ABDOMEN PELVIS W IV CONTRAST; 04/04/2023 6:57 am INDICATION: Signs/Symptoms:left rib pain/ bruising after fall. Patient fell in the shower with left-sided chest pain. COMPARISON: None. ACCESSION NUMBER(S): [id number] ORDERING CLINICIAN: JOHANNA RIOS TECHNIQUE: Contiguous axial CT sections are performed from the thoracic inlet to lesser trochanters following the bolus administration of 90 cc of intravenous Omnipaque 350. FINDINGS: There is mild dependent edema or atelectasis in the lower lobes. There is trace left pleural effusion or hemothorax. There is no pneumothorax. There is a fracture of the left 12th rib which appears minimally displaced with slight cortical offset. There are fractures of the left 11th rib. A posterior fractures nondisplaced. A posterolateral fracture is minimally displaced at the anterior cortex. There is a fracture of the left 10th rib which is mildly displaced posteriorly and posterolaterally. There is a displaced fracture of the posterior left 9th rib with comminution. There is displacement of 1 bone width. There is surrounding edema. The remaining visualized osseous structures are intact. The thoracic aorta is of normal caliber and enhancement. There is no aortic dissection. There is no pathologic lymph node enlargement in the mediastinum or pulmonary ramirez. There is no mediastinal fluid collection or pneumomediastinum. There is no pneumothorax. There is no intraluminal filling defect in the main pulmonary artery, right left pulmonary artery, or lobar arteries. There is diffuse fatty metamorphosis of the liver with some fatty sparing surrounding the gallbladder. No space-occupying mass is detected. The gallbladder is distended though otherwise unremarkable. The spleen, pancreas, and adrenal glands are of normal CT appearance. The kidneys are symmetric in size and enhance symmetrically and uniformly. There is no hydronephrosis or renal calculus. There is no hydroureter or obstructing ureteral calculus. The urinary bladder is not opacified though is well distended and otherwise unremarkable. There is no bladder calculus. The abdominal aorta is of normal and uniform caliber. The aorta enhances normally. There is no periaortic mass or fluid collection. The IVC is unremarkable. There is no bowel distension or infiltration of the bowel mesentery. The appendix has a normal appearance. There is no free air or free fluid collection in the abdomen or pelvis. There is no herniated bowel. There is a tiny fat containing umbilical hernia. There is severe discogenic degenerative changes of the lumbosacral junction which are described in detail on the CT lumbar spine examination of the same day. Fractures of the posterior and posterolateral left 12th, 11th, 10th, and 9th rib. Trace left hemothorax. There is no sizable pneumothorax. Severe fatty metamorphosis of the liver. Severe discogenic degenerative changes at the lumbosacral junction, described in detail on the CT lumbar spine examination of the same day. The remainder of the chest, abdomen, and pelvis is unremarkable. There is no evidence solid or hollow visceral injury. Signed by: Antoine Veloz 04/04/2023 7:48 AM Dictation workstation: [id number] CT thoracic spine wo IV contrast Result Date: 04/04/2023 Interpreted By: Antoine Veloz, STUDY: CT THORACIC SPINE WO IV CONTRAST; 04/04/2023 7:01 am INDICATION: Signs/Symptoms:fall. COMPARISON: None. ACCESSION NUMBER(S): [id number] ORDERING CLINICIAN: JOHANNA RIOS TECHNIQUE: Contiguous axial CT sections are performed through the thoracic spine and supplemented with coronal and sagittal reformatted images. FINDINGS: There is slight levoconvexity of the upper thoracic spine. The thoracic vertebral body alignment is otherwise within normal limits. The facet joints align normally. There are nondisplaced fractures of the posterior left 12th, 11th, and 10th rib. The ribs are incompletely visualized with this field of view. There is trace pleural fluid posteriorly on the left. The thoracic vertebral body heights are maintained. There are small Schmorl's node deformity at the inferior endplates T11 and T10 to the left of midline. There is otherwise no sign of thoracic vertebral body fracture. There is no bone destruction or aggressive periosteal reaction. No lytic or blastic lesion is detected. There is no significant central canal stenosis. The spinal cord is poorly characterized with CT. Nondisplaced fractures of the posterior 12th, 11th, 10th rib. Ribs are incompletely visualized with this field of view. Trace left pleural effusion or hemothorax. No sign of thoracic vertebral body fracture or malalignment. No CT evidence of central canal stenosis. Signed by: Antoine Veloz 04/04/2023 7:41 AM Dictation workstation: [id number] CT lumbar spine wo IV contrast Result Date: 04/04/2023 Interpreted By: Antoine Veloz, STUDY: CT LUMBAR SPINE WO IV CONTRAST; 04/04/2023 7:01 am INDICATION: Signs/Symptoms:fall. COMPARISON: None. ACCESSION NUMBER(S): [id number] ORDERING CLINICIAN: JOHANNA RIOS TECHNIQUE: Contiguous axial CT sections are performed through the lumbar spine is supplemented with coronal and sagittal reformatted images. FINDINGS: There is straightening of the lumbar lordosis. There is posterior subluxation of C5 relative to C6 measuring 6 mm. There are severe discogenic degenerative changes at L5-S1 with severe disc space narrowing and endplate sclerosis. There is vacuum phenomenon at this level. There is mild disc space narrowing at L1-2. The remaining lumbar disc space heights are preserved. The lumbar vertebral body heights are maintained. There are nondisplaced fractures of the posterior left 11th and 12th rib. There is no evidence lumbar vertebral body fracture. There is no bone destruction or aggressive periosteal reaction. No lytic or blastic lesion is identified. There are moderate osteoarthritic changes of both sacroiliac joints. The T12-L1 disc space level is unremarkable. The L1-2 disc space level is unremarkable. The L2-3 disc space level demonstrates mild bilateral facet arthrosis. There is mild bulging disc though no significant central canal or neural foraminal stenosis. The L3-4 disc space level demonstrates mild bilateral facet arthrosis and ligamentum flavum hypertrophy. There is mild circumferential bulging disc with mild central canal narrowing. There is mild disc encroachment on the caudal neural foramen bilaterally. The L4-5 disc space level demonstrates mild bilateral facet arthrosis and ligamentum flavum hypertrophy. There is mild bulging disc with flattening of the anterior thecal sac and mild central canal narrowing. There is mild disc encroachment on the caudal neural foramen bilaterally. The L5-S1 disc space level demonstrates mild bilateral facet arthrosis. Is bulging disc and marginal osteophyte asymmetric to the left. There is extruded disc with vacuum phenomena posteriorly to the right of midline. This finding may contact the right S1 nerve root. There is mild central canal narrowing. There is disc and osteophyte encroachment with moderate to severe bilateral neural foraminal narrowing. Nondisplaced fractures of the left 11th and 12th rib posteriorly. Severe discogenic degenerative changes of the lumbosacral junction. There is bulging disc and right paracentral disc extrusion. Disc material may contact the right S1 nerve root and should be correlated with any clinical findings of radiculopathy. There is mild central canal narrowing at this level and [id number] bilateral neural foraminal narrowing. Signed by: Antoine Veloz 04/04/2023 7:37 AM Dictation workstation: [id number] CT cervical spine wo IV contrast Result Date: 04/04/2023 Interpreted By: Antoine Veloz, STUDY: CT CERVICAL SPINE WO IV CONTRAST; 04/04/2023 6:55 am INDICATION: Signs/Symptoms:fall. COMPARISON: None. ACCESSION NUMBER(S): [id number] ORDERING CLINICIAN: JOHANNA RIOS TECHNIQUE: Contiguous axial CT sections are performed from the skullbase to the upper thoracic spine and supplemented with coronal and sagittal reformatted images. FINDINGS: The cervical vertebral body alignment is within normal limits. The facet joints align normally. The cervical vertebral body heights are maintained. There is no sign of acute fracture. There is no bone destruction or aggressive periosteal reaction. No lytic or blastic lesion is detected. There is mild cervical spondylosis at C4-5 and mild to moderate cervical spondylosis at C5-6 and C6-7 with disc space narrowing and small marginal osteophytes. There is mild multilevel facet arthrosis and uncovertebral arthrosis. There is mild narrowing of the right neural foramen at C4-5. There is moderate narrowing of the left neural foramina C5-6 and C6-7 and mild narrowing on the right. There is mild bulging disc at C4-5 and C5-6 without significant central canal narrowing. The surrounding soft tissue structures are unremarkable. There is no prevertebral soft tissue swelling or retropharyngeal air. Mcrx-[id number] lower cervical spondylosis as described above. Mild multilevel bulging disc without significant central canal narrowing. Mild and moderate multilevel neural foraminal narrowing as described above. No sign of acute fracture or subluxation. Signed by: Antoine Veloz 04/04/2023 7:24 AM Dictation workstation: [id number] CT head wo IV contrast Result Date: 04/04/2023 Interpreted By: Antoine Veloz, STUDY: CT HEAD WO IV CONTRAST; 04/04/2023 6:55 am INDICATION: fall. COMPARISON: None. ACCESSION NUMBER(S): [id number] ORDERING CLINICIAN: JOHANNA RIOS TECHNIQUE: Contiguous unenhanced axial CT sections are performed from the skull base to the vertex. FINDINGS: The osseous structures are intact. There is moderate mucoperiosteal thickening of the ethmoid air cells. The cortical sulci and CSF spaces are symmetric in appearance. There is no sign of parenchymal hematoma or dense extra-axial fluid collection. There is no localized edema, mass effect, or shift of the midline. The liriano matter/white matter differentiation is preserved. There is a 2 3 mm basal ganglia calcification on the right. No CT evidence of acute intracranial hemorrhage or mass effect. Mucoperiosteal thickening of the ethmoid air cells. Signed by: Antoine Veloz 04/04/2023 7:21 AM Dictation workstation: [id number] XR chest 1 view Result Date: 04/04/2023 Interpreted By: Sadi Figueroa, STUDY: XR CHEST 1 VIEW; 04/04/2023 4:51 am INDICATION: Signs/Symptoms:fall. COMPARISON: Chest radiograph 12/01/2017 ACCESSION NUMBER(S): [id number] ORDERING CLINICIAN: JOHANNA RIOS FINDINGS: CARDIOMEDIASTINAL SILHOUETTE: Cardiomediastinal silhouette is normal in size and configuration. LUNGS: No pulmonary consolidation, pleural effusion or pneumothorax. ABDOMEN: No remarkable upper abdominal findings. BONES: No acute osseous abnormality. Remote left-sided rib fractures. No radiographic evidence of acute cardiopulmonary pathology. MACRO: None. Signed by: Sadi Figueroa 04/04/2023 4:56 AM Dictation workstation: [id number] Assessment/Plan # Closed Fracture of 9th -12th rib with 9th rib displaced Mechanical Fall S/P LVATS open Reduction of Intrathoracic plating of 9th and 10th ribs Transfer from ICU to Medical Floor Under Trauma Services 04/10 Hospitalist team Consulted for management of HTN DVTp and Pain management per Trauma PT/OT evaluation and treatment CBC/BMP as appropriate, review results Pulmonary Toileting Follow up as needed outpatient with Trauma Services # HTN Continue Lisinopril / HCTZ Check BP at home daily Pain management Recommend to follow up with PCP at discharge x 1 week for BP check # Alcohol Abuse / Nicotine abuse Nicotine patch / gum as needed Smoking Cessation discussed Strict pulmonary toileting CIWA protocol Encourage alcohol abstinence / Follow up with [facility] meetings Social Work on Case for assistance Thank you for consult Per Trauma Services, Xi 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 Time spent 46 minutes obtaining labs, imaging, recommendations, interview, assessment, examination, medication review/ordering, and EMR review. Plan of care was discussed extensively with patient and Trauma Service BILINGUAL CUSTOMER SERVICE SPECIALIST. Patient verbalized understanding through teach back method. All questions and concerns addressed upon examination. Of note, this documentation is completed using the [email or web address] system (voice recognition software). There may be spelling and/or grammatical errors that were not corrected prior to final submission. FRANKIE Weaver [facility] Work Phone: 04-11-2023 Consult note Formatting of th is note is different from the original. Consults Reason For Consult Medicine consulted HTN History Of Present Illness Ford Phelan is a 47 y.o. male presented on 04/04 with left-sided chest pain following a fall while occurred getting out of the shower. At time of admission alcohol level was 204. CT showed fractures of the ninth through the 12th rib with ninth rib placement. Patient was admitted to ICU for pain management and pulmonary hygiene. Thoracic surgery was consulted for rib plating. On 04/09 patient underwent LVATS with open reduction for intrathoracic plating of the ninth and 10th ribs, along with evacuation of hemothorax, bronchoscopy with intercostal nerve block. Patient tolerated procedure well, recovered in PAUC and transferred to ICU. Postop day #1 on 04/10, patient remained hemodynamically stable, pain well controlled with oral medications after COMPENSATOR pump was discontinued, left pleural chest tube was removed with no complications, patient was transferred to the medical floor in stable condition. Hospitalist team was consulted for management of blood pressure while on the medical floor. Patient examined and seen. Alert and oriented x3, resting comfortably. Patient denies chest pain, shortness of breath, palpitations, abdominal pain, fever or chills. He does report pain to left side of chest wall with cough or movement. Splinting area was discussed as well as importance of pulmonary hygiene. Patient verbalized understanding through teach back method. We also discussed strict follow up with providers after discharge. He voices no barriers at this time to making appointments, however, he will be recovering in [place] with family. Review of systems: 10 system were reviewed and were negative except what was mentioned in history of present illness Past Medical History HTN, Tobacco use, Alcohol Use, alcoholic pancreatitis Surgical History LVATS 04/09 Social History Daily tobacco use Daily alcohol use Denies drug use Family History No family history on file. Allergies Bupropion Physical Exam Constitutional: Well developed, awake/alert/oriented x3, , cooperative Eyes: PERRL, EOMI, clear sclera ENMT: mucous membranes moist, no apparent injury, no lesions seen Head/Neck: Neck supple, no apparent injury, thyroid without mass or tenderness Respiratory/Thorax: Patent airways, diminished bases bilaterally , no adventitious lung sounds appreciated , left chest wall tenderness anteriorly and posteriorly as 2/2 to rib fx and LVATS Cardiovascular: Regular, rate and rhythm, Gastrointestinal: Nondistended, soft, non-tender, Musculoskeletal: ROM intact, no joint swelling, Extremities: normal extremities, Skin: warm, dry, intact Left Incision to chest wall posteriorly with bandage CDI Neurological: alert/oriented x 3, speech clear, Psychiatric: appropriate mood and behavior Last Recorded Vitals BP 150/88 Pulse 66 Temp 36.8 C (98.2 F) Resp 16 Wt 81.1 kg (178 lb 12.7 oz) SpO2 96% Relevant Results Scheduled medications acetaminophen, 975 mg, oral, q8h docusate sodium, 100 mg, oral, BID folic acid, 1 mg, oral, Daily guaiFENesin, 600 mg, oral, BID heparin (porcine), 5,000 Units, subcutaneous, q8h hydroCHLOROthiazide, 12.5 mg, oral, Daily ketorolac, 15 mg, intravenous, q6h lidocaine, 1 patch, transdermal, Daily lisinopril, 20 mg, oral, Daily magnesium oxide, 800 mg, oral, Daily melatonin, 6 mg, oral, Nightly multivitamin with minerals, 1 tablet, oral, Daily nicotine, 1 patch, transdermal, Daily Followed by [START ON 05/21/2023] nicotine, 1 patch, transdermal, Daily Followed by [START ON 06/04/2023] nicotine, 1 patch, transdermal, Daily pantoprazole, 40 mg, oral, Daily before breakfast polyethylene glycol, 17 g, oral, Daily sertraline, 100 mg, oral, Daily thiamine, 100 mg, oral, Daily Continuous medications PRN medications PRN medications: albuterol, HYDROmorphone, naloxone, ondansetron ODT OR ondansetron, oxyCODONE, oxyCODONE, oxygen Results for orders placed or performed during the hospital encounter of 04/04/23 (from the past 24 hour(s)) CBC Result Value Ref Range WBC 7.3 4.4 - 11.3 x10*3/uL nRBC 0.0 0.0 - 0.0 /100 WBCs RBC 3.47 (L) 4.50 - 5.90 x10*6/uL Hemoglobin 12.7 (L) 13.5 - 17.5 g/dL Hematocrit 37.2 (L) 41.0 - 52.0 % MCV 107 (H) 80 - 100 fL MCH 36.6 (H) 26.0 - 34.0 pg MCHC 34.1 32.0 - 36.0 g/dL RDW 12.9 11.5 - 14.5 % Platelets 202 150 - 450 x10*3/uL Magnesium Result Value Ref Range Magnesium 1.78 1.60 - 2.40 mg/dL Comprehensive metabolic panel Result Value Ref Range Glucose 89 74 - 99 mg/dL Sodium 132 (L) 136 - 145 mmol/L Potassium 4.0 3.5 - 5.3 mmol/L Chloride 98 98 - 107 mmol/L Bicarbonate 26 21 - 32 mmol/L Anion Gap 12 10 - 20 mmol/L Urea Nitrogen 10 6 - 23 mg/dL Creatinine 0.57 0.50 - 1.30 mg/dL eGFR >90 >60 mL/min/1.73m*2 Calcium 8.3 (L) 8.6 - 10.3 mg/dL Albumin 2.9 (L) 3.4 - 5.0 g/dL Alkaline Phosphatase 127 (H) 33 - 120 U/L Total Protein 5.4 (L) 6.4 - 8.2 g/dL AST 28 9 - 39 U/L Bilirubin, Total 0.7 0.0 - 1.2 mg/dL ALT 25 10 - 52 U/L XR chest 1 view Result Date: 04/11/2023 Interpreted By: Miguel A Chin, STUDY: XR CHEST 1 VIEW; 04/11/2023 5:29 am INDICATION: Signs/Symptoms:post op rib plating. COMPARISON: 04/10/2023 ACCESSION NUMBER(S): [id number] ORDERING CLINICIAN: JORGE ALMODOVAR FINDINGS: CHEST/LUNGS: The cardiac and mediastinal silhouettes are unchanged in size and configuration. There is a mild area of atelectasis or infiltrate in the left base, slightly worse when compared to the previous study. Trace left effusion versus pleural thickening is unchanged. Mild atelectasis/scarring in the right base. There is a tiny left apical pneumothorax which is unchanged in size. There is subcutaneous emphysema along left chest wall, similar to the prior study. UPPER ABDOMEN: No remarkable upper abdominal findings. OSSEOUS STRUCTURES: No acute changes. Multiple left-sided rib fractures. Tiny left apical pneumothorax which is unchanged. Atelectasis/infiltrate in the left base. Multiple left-sided rib fractures. Left-sided subcutaneous emphysema. MACRO: None. Signed by: Miguel A Chin 04/11/2023 7:24 AM Dictation workstation: [id number] XR chest 1 view Result Date: 04/11/2023 Interpreted By: Miguel A Chin, STUDY: XR CHEST 1 VIEW; 04/10/2023 11:16 am INDICATION: Signs/Symptoms:r/o PTX s/p CT removal. COMPARISON: 04/10/2023 ACCESSION NUMBER(S): [id number] ORDERING CLINICIAN: BORA BARNEY FINDINGS: CHEST/LUNGS: The cardiac and mediastinal silhouettes are unchanged in size and configuration. There has been interval removal of the left chest tube. There is an area of atelectasis or infiltrate in the left base which is stable. There is a tiny left apical pneumothorax. Minimal atelectasis/scarring in the right base. No new areas of consolidation. No sizable effusion. UPPER ABDOMEN: No remarkable upper abdominal findings. OSSEOUS STRUCTURES: No acute changes. Interval removal of the left-sided chest tube with a tiny left apical pneumothorax. MACRO: None. Signed by: Miguel A Chin 04/11/2023 7:23 AM Dictation workstation: [id number] XR chest 1 view Result Date: 04/10/2023 Interpreted By: Miguel A Chin, STUDY: XR CHEST 1 VIEW; 04/10/2023 5:47 am INDICATION: Signs/Symptoms:post op rib plating. COMPARISON: 04/09/2023 ACCESSION NUMBER(S): [id number] ORDERING CLINICIAN: TAJ ENCISO FINDINGS: CHEST/LUNGS: The cardiac and mediastinal silhouettes are unchanged in size and configuration. Left-sided chest tube is unchanged in position. No sizable pneumothorax. Atelectasis/infiltrates in the left base. No sizable effusion. Mild atelectasis/scarring in the right mid lung. Persistent left-sided subcutaneous emphysema. UPPER ABDOMEN: No remarkable upper abdominal findings. OSSEOUS STRUCTURES: No acute changes. Mild atelectasis/infiltrates in the left base. No sizable pneumothorax. Left chest tube remains in place. MACRO: None. Signed by: Miguel A Chin 04/10/2023 9:14 AM Dictation workstation: [id number] XR chest 1 view Result Date: 04/09/2023 Interpreted By: Ivette Andrade, STUDY: XR CHEST 1 VIEW; 04/09/2023 5:44 pm INDICATION: Signs/Symptoms:New onset SOB post procedure. COMPARISON: 04/09/2023 ACCESSION NUMBER(S): [id number] ORDERING CLINICIAN: JORGE ALMODOVAR FINDINGS: Left-sided chest tube present. No visible pneumothorax. Left chest wall subcutaneous emphysema. Streaky bibasilar opacities suggestive of atelectasis. Normal heart size. No large pleural effusion. Left chest tube in place. No visible pneumothorax. Streaky bibasilar opacities suggesting atelectasis. Signed by: Ivette Andrade 04/09/2023 6:37 PM Dictation workstation: [id number] XR chest 1 view Result Date: 04/09/2023 Interpreted By: Brittney Holder, STUDY: Chest, single AP view. INDICATION: Signs/Symptoms:rib fractures. COMPARISON: Chest radiograph dated 04/08/2023 ACCESSION NUMBER(S): [id number] ORDERING CLINICIAN: SILVIA JUARES FINDINGS: Left apical chest tube in place. The cardiac silhouette size is within normal limits. There is no focal consolidation, edema or pneumothorax. No sizeable pleural effusion. No acute osseous abnormality. Chronic healed left posterior 5th, 6th, 7th rib fractures with cortical deformities. Additional previously described fractures of the left posterior and posterolateral 9th through 12th ribs are better evaluated on the previous CT chest study. 1. Left apical chest tube in place. No pneumothorax. 2. Chronic healed left posterior 5th, 6th, 7th rib fractures with cortical deformities. 3. Additional previously described fractures of the left posterior and posterolateral 9th through 12th ribs are better evaluated on the previous CT chest study. MACRO: None. Signed by: Brittney Holder 04/09/2023 11:49 AM Dictation workstation: [id number] XR chest 1 view Result Date: 04/08/2023 Interpreted By: Ronel Basurto, STUDY: XR CHEST 1 VIEW; 04/08/2023 9:58 am INDICATION: Signs/Symptoms:rib fractures. COMPARISON: 04/07/2023; CT chest dated 04/04/2023 ACCESSION NUMBER(S): [id number] ORDERING CLINICIAN: SILVIA JUARES FINDINGS: Heart is normal in size. There appears to be pleural and parenchymal disease at the left base. The mediastinum is unremarkable. There are multiple left rib fractures. Some of the rib fractures are old, some are acute. The patient is slightly scoliotic. COMPARISON OF FINDING: The chest is similar. Increased opacity at the left base. Multiple left-sided rib fractures. MACRO: none Signed by: Ronel Basurto 04/08/2023 11:32 AM Dictation workstation: [id number] XR chest 1 view Result Date: 04/07/2023 Interpreted By: Silvia Sood, STUDY: XR CHEST 1 VIEW; 04/06/2023 10:48 am INDICATION: Signs/Symptoms:rib fractures. COMPARISON: 04/04/2023. ACCESSION NUMBER(S): [id number] ORDERING CLINICIAN: CHRIS GARCIA FINDINGS: CARDIOMEDIASTINAL SILHOUETTE: Borderline size of the cardiac silhouette is stable. LUNGS: There is increased opacification of the left base which may be due to a combination of consolidation, volume loss and possible small volume pleural effusion. No right lung consolidation is seen. No appreciable pneumothorax. ABDOMEN: No remarkable upper abdominal findings. BONES: Multiple left-sided rib deformities are partially visualized representing a combination of nonacute and acute fractures as better seen and described on previous chest CT. 1. Partial visualization of multiple left-sided rib deformities representing a combination of nonacute and acute fractures as better seen and described on recent chest CT. No appreciable pneumothorax. 2. Increased opacification of the left base may be due to a combination of consolidation, volume loss and possible small volume pleural effusion. MACRO: None. Signed by: Silvia Sood 04/07/2023 11:27 AM Dictation workstation: [id number] XR chest 1 view Result Date: 04/07/2023 Interpreted By: Silvia Sood, STUDY: XR CHEST 1 VIEW; 04/07/2023 5:37 am INDICATION: Signs/Symptoms:rib fractures. COMPARISON: 04/06/2023. ACCESSION NUMBER(S): [id number] ORDERING CLINICIAN: CHRIS GARCIA FINDINGS: CARDIOMEDIASTINAL SILHOUETTE: Borderline size of the cardiac silhouette is stable. LUNGS: Left basilar opacification most confluent in the retrocardiac region may represent atelectasis and/or infiltrate. Small left effusion not excluded. Right midlung mild linear atelectasis or scarring is present. No appreciable pneumothorax. ABDOMEN: No remarkable upper abdominal findings. BONES: Combination of multiple left nonacute and acute rib fracture deformities are partially visualized as better seen and described on previous CT. 1. Combination of multiple left nonacute nonacute rib fracture deformities again partially visualized. 2. Left basilar opacification most confluent in the retrocardiac region again seen and may be due to a combination of atelectasis and or infiltrates. 3. No appreciable pneumothorax. MACRO: None. Signed by: Silvia Sood 04/07/2023 11:25 AM Dictation workstation: [id number] XR chest 1 view Result Date: 04/05/2023 Interpreted By: Brittney Holder, STUDY: Chest, single AP view. INDICATION: Signs/Symptoms:fu chest x-ray for rib fx. COMPARISON: CT chest 04/04/2023 and chest radiograph 04/04/2023 ACCESSION NUMBER(S): [id number] ORDERING CLINICIAN: CHRIS GARCIA FINDINGS: The cardiac silhouette size is within normal limits. There is no focal consolidation, edema or pneumothorax. No sizeable pleural effusion. No acute osseous abnormality. Redemonstration of subacute left posterolateral 9th through 12th rib fractures that are better evaluated on the previous CT chest study. More remote fractures of left posterior 5th through 7th ribs noted as well. 1. No acute cardiopulmonary process. 2. Redemonstration of acute left posterolateral 9th through 12th rib fractures that are better evaluated on the previous CT chest study. More remote fractures of left posterior 5th through 7th ribs noted as well. MACRO: None. Signed by: Brittney Holder 04/05/2023 9:10 AM Dictation workstation: [id number] CT chest abdomen pelvis w IV contrast Result Date: 04/04/2023 Interpreted By: Antoine Veloz, STUDY: CT CHEST ABDOMEN PELVIS W IV CONTRAST; 04/04/2023 6:57 am INDICATION: Signs/Symptoms:left rib pain/ bruising after fall. Patient fell in the shower with left-sided chest pain. COMPARISON: None. ACCESSION NUMBER(S): [id number] ORDERING CLINICIAN: JOHANNA RIOS TECHNIQUE: Contiguous axial CT sections are performed from the thoracic inlet to lesser trochanters following the bolus administration of 90 cc of intravenous Omnipaque 350. FINDINGS: There is mild dependent edema or atelectasis in the lower lobes. There is trace left pleural effusion or hemothorax. There is no pneumothorax. There is a fracture of the left 12th rib which appears minimally displaced with slight cortical offset. There are fractures of the left 11th rib. A posterior fractures nondisplaced. A posterolateral fracture is minimally displaced at the anterior cortex. There is a fracture of the left 10th rib which is mildly displaced posteriorly and posterolaterally. There is a displaced fracture of the posterior left 9th rib with comminution. There is displacement of 1 bone width. There is surrounding edema. The remaining visualized osseous structures are intact. The thoracic aorta is of normal caliber and enhancement. There is no aortic dissection. There is no pathologic lymph node enlargement in the mediastinum or pulmonary ramirez. There is no mediastinal fluid collection or pneumomediastinum. There is no pneumothorax. There is no intraluminal filling defect in the main pulmonary artery, right left pulmonary artery, or lobar arteries. There is diffuse fatty metamorphosis of the liver with some fatty sparing surrounding the gallbladder. No space-occupying mass is detected. The gallbladder is distended though otherwise unremarkable. The spleen, pancreas, and adrenal glands are of normal CT appearance. The kidneys are symmetric in size and enhance symmetrically and uniformly. There is no hydronephrosis or renal calculus. There is no hydroureter or obstructing ureteral calculus. The urinary bladder is not opacified though is well distended and otherwise unremarkable. There is no bladder calculus. The abdominal aorta is of normal and uniform caliber. The aorta enhances normally. There is no periaortic mass or fluid collection. The IVC is unremarkable. There is no bowel distension or infiltration of the bowel mesentery. The appendix has a normal appearance. There is no free air or free fluid collection in the abdomen or pelvis. There is no herniated bowel. There is a tiny fat containing umbilical hernia. There is severe discogenic degenerative changes of the lumbosacral junction which are described in detail on the CT lumbar spine examination of the same day. Fractures of the posterior and posterolateral left 12th, 11th, 10th, and 9th rib. Trace left hemothorax. There is no sizable pneumothorax. Severe fatty metamorphosis of the liver. Severe discogenic degenerative changes at the lumbosacral junction, described in detail on the CT lumbar spine examination of the same day. The remainder of the chest, abdomen, and pelvis is unremarkable. There is no evidence solid or hollow visceral injury. Signed by: Antoine Veloz 04/04/2023 7:48 AM Dictation workstation: [id number] CT thoracic spine wo IV contrast Result Date: 04/04/2023 Interpreted By: Antoine Veloz, STUDY: CT THORACIC SPINE WO IV CONTRAST; 04/04/2023 7:01 am INDICATION: Signs/Symptoms:fall. COMPARISON: None. ACCESSION NUMBER(S): [id number] ORDERING CLINICIAN: JOHANNA RIOS TECHNIQUE: Contiguous axial CT sections are performed through the thoracic spine and supplemented with coronal and sagittal reformatted images. FINDINGS: There is slight levoconvexity of the upper thoracic spine. The thoracic vertebral body alignment is otherwise within normal limits. The facet joints align normally. There are nondisplaced fractures of the posterior left 12th, 11th, and 10th rib. The ribs are incompletely visualized with this field of view. There is trace pleural fluid posteriorly on the left. The thoracic vertebral body heights are maintained. There are small Schmorl's node deformity at the inferior endplates T11 and T10 to the left of midline. There is otherwise no sign of thoracic vertebral body fracture. There is no bone destruction or aggressive periosteal reaction. No lytic or blastic lesion is detected. There is no significant central canal stenosis. The spinal cord is poorly characterized with CT. Nondisplaced fractures of the posterior 12th, 11th, 10th rib. Ribs are incompletely visualized with this field of view. Trace left pleural effusion or hemothorax. No sign of thoracic vertebral body fracture or malalignment. No CT evidence of central canal stenosis. Signed by: Antoine Veloz 04/04/2023 7:41 AM Dictation workstation: [id number] CT lumbar spine wo IV contrast Result Date: 04/04/2023 Interpreted By: Antoine Veloz, STUDY: CT LUMBAR SPINE WO IV CONTRAST; 04/04/2023 7:01 am INDICATION: Signs/Symptoms:fall. COMPARISON: None. ACCESSION NUMBER(S): [id number] ORDERING CLINICIAN: JOHANNA RIOS TECHNIQUE: Contiguous axial CT sections are performed through the lumbar spine is supplemented with coronal and sagittal reformatted images. FINDINGS: There is straightening of the lumbar lordosis. There is posterior subluxation of C5 relative to C6 measuring 6 mm. There are severe discogenic degenerative changes at L5-S1 with severe disc space narrowing and endplate sclerosis. There is vacuum phenomenon at this level. There is mild disc space narrowing at L1-2. The remaining lumbar disc space heights are preserved. The lumbar vertebral body heights are maintained. There are nondisplaced fractures of the posterior left 11th and 12th rib. There is no evidence lumbar vertebral body fracture. There is no bone destruction or aggressive periosteal reaction. No lytic or blastic lesion is identified. There are moderate osteoarthritic changes of both sacroiliac joints. The T12-L1 disc space level is unremarkable. The L1-2 disc space level is unremarkable. The L2-3 disc space level demonstrates mild bilateral facet arthrosis. There is mild bulging disc though no significant central canal or neural foraminal stenosis. The L3-4 disc space level demonstrates mild bilateral facet arthrosis and ligamentum flavum hypertrophy. There is mild circumferential bulging disc with mild central canal narrowing. There is mild disc encroachment on the caudal neural foramen bilaterally. The L4-5 disc space level demonstrates mild bilateral facet arthrosis and ligamentum flavum hypertrophy. There is mild bulging disc with flattening of the anterior thecal sac and mild central canal narrowing. There is mild disc encroachment on the caudal neural foramen bilaterally. The L5-S1 disc space level demonstrates mild bilateral facet arthrosis. Is bulging disc and marginal osteophyte asymmetric to the left. There is extruded disc with vacuum phenomena posteriorly to the right of midline. This finding may contact the right S1 nerve root. There is mild central canal narrowing. There is disc and osteophyte encroachment with moderate to severe bilateral neural foraminal narrowing. Nondisplaced fractures of the left 11th and 12th rib posteriorly. Severe discogenic degenerative changes of the lumbosacral junction. There is bulging disc and right paracentral disc extrusion. Disc material may contact the right S1 nerve root and should be correlated with any clinical findings of radiculopathy. There is mild central canal narrowing at this level and [id number] bilateral neural foraminal narrowing. Signed by: Antoine Veloz 04/04/2023 7:37 AM Dictation workstation: [id number] CT cervical spine wo IV contrast Result Date: 04/04/2023 Interpreted By: Antoine Veloz, STUDY: CT CERVICAL SPINE WO IV CONTRAST; 04/04/2023 6:55 am INDICATION: Signs/Symptoms:fall. COMPARISON: None. ACCESSION NUMBER(S): [id number] ORDERING CLINICIAN: JOHANNA RIOS TECHNIQUE: Contiguous axial CT sections are performed from the skullbase to the upper thoracic spine and supplemented with coronal and sagittal reformatted images. FINDINGS: The cervical vertebral body alignment is within normal limits. The facet joints align normally. The cervical vertebral body heights are maintained. There is no sign of acute fracture. There is no bone destruction or aggressive periosteal reaction. No lytic or blastic lesion is detected. There is mild cervical spondylosis at C4-5 and mild to moderate cervical spondylosis at C5-6 and C6-7 with disc space narrowing and small marginal osteophytes. There is mild multilevel facet arthrosis and uncovertebral arthrosis. There is mild narrowing of the right neural foramen at C4-5. There is moderate narrowing of the left neural foramina C5-6 and C6-7 and mild narrowing on the right. There is mild bulging disc at C4-5 and C5-6 without significant central canal narrowing. The surrounding soft tissue structures are unremarkable. There is no prevertebral soft tissue swelling or retropharyngeal air. Inbb-gp-kravrqbf lower cervical spondylosis as described above. Mild multilevel bulging disc without significant central canal narrowing. Mild and moderate multilevel neural foraminal narrowing as described above. No sign of acute fracture or subluxation. Signed by: Antoine Veloz 04/04/2023 7:24 AM Dictation workstation: [id number] CT head wo IV contrast Result Date: 04/04/2023 Interpreted By: Antoine Veloz, STUDY: CT HEAD WO IV CONTRAST; 04/04/2023 6:55 am INDICATION: fall. COMPARISON: None. ACCESSION NUMBER(S): [id number] ORDERING CLINICIAN: JOHANNA RIOS TECHNIQUE: Contiguous unenhanced axial CT sections are performed from the skull base to the vertex. FINDINGS: The osseous structures are intact. There is moderate mucoperiosteal thickening of the ethmoid air cells. The cortical sulci and CSF spaces are symmetric in appearance. There is no sign of parenchymal hematoma or dense extra-axial fluid collection. There is no localized edema, mass effect, or shift of the midline. The liriano matter/white matter differentiation is preserved. There is a 2 3 mm basal ganglia calcification on the right. No CT evidence of acute intracranial hemorrhage or mass effect. Mucoperiosteal thickening of the ethmoid air cells. Signed by: Antoine Veloz 04/04/2023 7:21 AM Dictation workstation: [id number] XR chest 1 view Result Date: 04/04/2023 Interpreted By: Sadi Figueroa, STUDY: XR CHEST 1 VIEW; 04/04/2023 4:51 am INDICATION: Signs/Symptoms:fall. COMPARISON: Chest radiograph 12/01/2017 ACCESSION NUMBER(S): [id number] ORDERING CLINICIAN: JOHANNA RIOS FINDINGS: CARDIOMEDIASTINAL SILHOUETTE: Cardiomediastinal silhouette is normal in size and configuration. LUNGS: No pulmonary consolidation, pleural effusion or pneumothorax. ABDOMEN: No remarkable upper abdominal findings. BONES: No acute osseous abnormality. Remote left-sided rib fractures. No radiographic evidence of acute cardiopulmonary pathology. MACRO: None. Signed by: Sadi Figueroa 04/04/2023 4:56 AM Dictation workstation: [id number] Assessment/Plan # Closed Fracture of 9th -12th rib with 9th rib displaced Mechanical Fall S/P LVATS open Reduction of Intrathoracic plating of 9th and 10th ribs Transfer from ICU to Medical Floor Under Trauma Services 04/10 Hospitalist team Consulted for management of HTN DVTp and Pain management per Trauma PT/OT evaluation and treatment CBC/BMP as appropriate, review results Pulmonary Toileting Follow up as needed outpatient with Trauma Services # HTN Continue Lisinopril / HCTZ Check BP at home daily Pain management Recommend to follow up with PCP at discharge x 1 week for BP check # Alcohol Abuse / Nicotine abuse Nicotine patch / gum as needed Smoking Cessation discussed Strict pulmonary toileting CICT protocol Encourage alcohol abstinence / Follow up with [facility] meetings Social Work on Case for assistance Thank you for consult Per Trauma ServicesiX 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 Time spent 46 minutes obtaining labs, imaging, recommendations, interview, assessment, examination, medication review/ordering, and EMR review. Plan of care was discussed extensively with patient and Trauma Service BILINGUAL CUSTOMER SERVICE SPECIALIST. Patient verbalized understanding through teach back method. All questions and concerns addressed upon examination. Of note, this documentation is completed using the [employer] Dictation system (voice recognition software). There may be spelling and/or grammatical errors that were not corrected prior to final submission. FRANKIE Weaver Images from the original note were not included. [facility] Critical Care Medicine Date: 04/10/2023 Patient: Ford Phelan Date of : 1975 Admit Date: 04/04/2023 Chief Complaint Patient presents with Fall Pt slipped getting out of the shower and fell forward, hit left side of body on the bath tub. History of Present Illness: Ford Phelan is a 47 y.o. year old male patient with Past Medical History of hypertension, vit b12 deficiency, alcohol abuse, daily smoker. Patient has a history of alcohol abuse and has been admitted at [facility] in the past for alcoholic pancreatitis as well as alcohol withdrawal. Patient arrived to [facility] emergency department 04/04 with complaints of mechanical fall at home while getting out of the shower. He had his left side on the edge of the bathtub. He denies hitting his head or losing consciousness. In the emergency department he was afebrile, stable vital signs, oxygen saturations low 90s on room air, pain with inspiration. Full trauma work-up was done which demonstrated fractures of the left ninth through 12th ribs. Alcohol level 204. Patient was admitted to the ICU with trauma consult for pain management and aggressive pulmonary hygiene. He was transferred from the ICU service on 04/07 and then consulted on 04/09 for observation post VATS procedure. Interval ICU Events: 04/09: Consulted today post left VATS procedure with evacuation of hemothorax and plating of left 9th and 10th rib. Patient states pain has been reduced significantly and laying in bed comfortably. Denies nausea, vomiting, and pain. 04/10: COMPENSATOR was restarted for severe pain overnight. Today patient is tolerating pain and using pulmonary hygiene devices. He was able to work with physical therapy and took a walk around the unit. COMPENSATOR pump was discontinued restarting pain medications as needed. Medical History: Past Medical History: Diagnosis Date High blood pressure No past surgical history on file. Medications Prior to Admission Medication Sig Dispense Refill Last Dose albuterol 90 mcg/actuation aerosol powdr breath activated inhaler Inhale 2 puffs every 4 hours if needed for wheezing. Unknown clonazePAM (KlonoPIN) 0.5 mg tablet Take 0.5 tablets (0.25 mg) by mouth 2 times a day as needed for anxiety. Unknown hydroCHLOROthiazide (HYDRODiuril) 12.5 mg tablet Take 1 tablet (12.5 mg) by mouth once daily. 04/02/2023 lisinopril 20 mg tablet Take 1 tablet (20 mg) by mouth once daily. 04/02/2023 sertraline (Zoloft) 100 mg tablet Take 1 tablet (100 mg) by mouth once daily. 04/02/2023 thiamine 100 mg tablet Take 1 tablet (100 mg) by mouth once daily. 04/02/2023 Bupropion Social History Tobacco Use Smoking status: Every Day Packs/day: 1 Types: Cigarettes Start date: 1997 Smokeless tobacco: Never Vaping Use Vaping Use: Every day Substance Use Topics Alcohol use: Yes Alcohol/week: 2.0 standard drinks of alcohol Types: 2 Standard drinks or equivalent per week Drug use: Never No family history on file. Hospital Medications: Current Facility-Administered Medications: acetaminophen (Tylenol) tablet 975 mg, 975 mg, oral, q8h, RAGINI Bryan-Sameer, 975 mg at 04/10/23 0811 albuterol 90 mcg/actuation inhaler 2 puff, 2 puff, inhalation, q4h PRN, Jorge Almodovar PA-C docusate sodium (Colace) capsule 100 mg, 100 mg, oral, BID, Bora Barney APRN-AMANDA, 100 mg at 04/10/23 1058 folic acid (Folvite) tablet 1 mg, 1 mg, oral, Daily, Jorge Almodovar PA-C, 1 mg at 04/10/23 0811 guaiFENesin (Mucinex) 12 hr tablet 600 mg, 600 mg, oral, BID PRN, Jorge Almodovar PA-C, 600 mg at 04/07/23 2014 guaiFENesin (Mucinex) 12 hr tablet 600 mg, 600 mg, oral, BID, Katia De La Rosa, DAYANARA-PIT MANAGER, 600 mg at 04/10/23 0810 heparin (porcine) injection 5,000 Units, 5,000 Units, subcutaneous, q8h, Taj Enciso APRN-PIT MANAGER, 5,000 Units at 04/10/23 1058 hydroCHLOROthiazide (HYDRODiuril) tablet 12.5 mg, 12.5 mg, oral, Daily, Jorge Almodovar PA-C, 12.5 mg at 04/10/23 0811 ketorolac (Toradol) injection 15 mg, 15 mg, intravenous, q6h, Bora Barney APRN-PIT MANAGER, 15 mg at 04/10/23 1111 lidocaine 4 % patch 1 patch, 1 patch, transdermal, Daily, Jorge Almodovar PA-C, 1 patch at 04/10/23 0809 lisinopril tablet 20 mg, 20 mg, oral, Daily, RAGINI Bryan-Sameer, 20 mg at 04/10/23 0811 magnesium oxide (Mag-Ox) tablet 800 mg, 800 mg, oral, Daily, RAGINI Bryan-C, 800 mg at 04/10/23 0810 melatonin tablet 6 mg, 6 mg, oral, Nightly, Jorge Almodovar PA-C, 6 mg at 04/09/23 2133 multivitamin with minerals 1 tablet, 1 tablet, oral, Daily, Jorge Almodoavr PA-C, 1 tablet at 04/10/23 0812 naloxone (Narcan) injection 0.2 mg, 0.2 mg, intravenous, PRN, FRANKIE Harris nicotine (Nicoderm CQ) 21 mg/24 hr patch 1 patch, 1 patch, transdermal, Daily, 1 patch at 04/10/23 0809 FOLLOWED BY [START ON 05/21/2023] nicotine (Nicoderm CQ) 14 mg/24 hr patch 1 patch, 1 patch, transdermal, Daily FOLLOWED BY [START ON 06/04/2023] nicotine (Nicoderm CQ) 7 mg/24 hr patch 1 patch, 1 patch, transdermal, Daily, Jorge Almodovar PA-C ondansetron ODT (Zofran-ODT) disintegrating tablet 4 mg, 4 mg, oral, q8h PRN OR ondansetron (Zofran) injection 4 mg, 4 mg, intravenous, q8h PRN, Jorge Almodovar PA-C, 4 mg at 04/09/23 0921 oxyCODONE (Roxicodone) immediate release tablet 10 mg, 10 mg, oral, q4h PRN, FRANKIE Lamas oxyCODONE (Roxicodone) immediate release tablet 5 mg, 5 mg, oral, q4h PRN, FRANKIE Lamas oxygen (O2) therapy, , inhalation, Continuous PRN - O2/gases, Jorge Almodovar PA-C, 2 L/min at 04/10/23 0400 oxygen (O2) therapy, , inhalation, Continuous PRN - O2/gases, FRANKIE Lamas [START ON 04/11/2023] pantoprazole (ProtoNix) EC tablet 40 mg, 40 mg, oral, Daily before breakfast, FRANKIE Almanza [COMPLETED] PHENobarbitaL (Luminal) tablet 97.2 mg, 97.2 mg, oral, TID, 97.2 mg at 04/06/232119 FOLLOWED BY [COMPLETED] PHENobarbitaL (Luminal) tablet 64.8 mg, 64.8 mg, oral, TID, 64.8 mg at 04/08/232004 FOLLOWED BY PHENobarbitaL (Luminal) tablet 32.4 mg, 32.4 mg, oral, TID, Jorge Almodovar, PA-C, 32.4 mg at 04/10/23 0810 polyethylene glycol (Glycolax, Miralax) packet 17 g, 17 g, oral, Daily, Taj Enciso, ROUTE RETURNER-PIT MANAGER, 17 g at 04/10/23 0820 sertraline (Zoloft) tablet 100 mg, 100 mg, oral, Daily, Jorge Almodovar, PA-C, 100 mg at 04/10/23 0810 thiamine (Vitamin B-1) tablet 100 mg, 100 mg, oral, Daily, Jorge Almodovar, PA-C, 100 mg at 04/10/23 0811 Physical Exam: Heart Rate: [62-94] Temp: [36 C (96.8 F)-37.1 C (98.7 F)] Resp: [17-25] BP: (106-141)/(67-94) Height: [184 cm (6' 0.44)] Weight: [81.1 kg (178 lb 12.7 oz)] SpO2: [92 %-99 %] Physical Exam Constitutional: Appearance: Normal appearance. He is not ill-appearing or toxic-appearing. HENT: Head: Normocephalic and atraumatic. Nose: Nose normal. No congestion or rhinorrhea. Mouth/Throat: Mouth: Mucous membranes are moist. Pharynx: Oropharynx is clear. No oropharyngeal exudate. Eyes: General: No scleral icterus. Extraocular Movements: Extraocular movements intact. Conjunctiva/sclera: Conjunctivae normal. Pupils: Pupils are equal, round, and reactive to light. Cardiovascular: Rate and Rhythm: Regular rhythm. Tachycardia present. Pulses: Normal pulses. Heart sounds: Normal heart sounds. No murmur heard. Pulmonary: Effort: Pulmonary effort is normal. No respiratory distress. Breath sounds: Wheezing present. Chest: Chest wall: Tenderness present. Abdominal: General: Abdomen is flat. Bowel sounds are normal. There is no distension. Palpations: Abdomen is soft. Tenderness: There is no abdominal tenderness. There is no guarding. Musculoskeletal: Cervical back: Normal range of motion. Skin: General: Skin is warm and dry. Capillary Refill: Capillary refill takes less than 2 seconds. Coloration: Skin is not jaundiced. Findings: Erythema present. Neurological: General: No focal deficit present. Mental Status: He is alert and oriented to person, place, and time. Mental status is at baseline. Cranial Nerves: No cranial nerve deficit. Gait: Gait normal. Objective: Intake/Output Summary (Last 24 hours) at 04/10/2023 1129 Last data filed at 04/10/2023 0800 Gross per 24 hour Intake 1350 ml Output 1385 ml Net -35 ml Results for orders placed or performed during the hospital encounter of 04/04/23 (from the past 24 hour(s)) CBC Result Value Ref Range WBC 8.1 4.4 - 11.3 x10*3/uL nRBC 0.0 0.0 - 0.0 /100 WBCs RBC 3.53 (L) 4.50 - 5.90 x10*6/uL Hemoglobin 13.3 (L) 13.5 - 17.5 g/dL Hematocrit 37.8 (L) 41.0 - 52.0 % MCV 107 (H) 80 - 100 fL MCH 37.7 (H) 26.0 - 34.0 pg MCHC 35.2 32.0 - 36.0 g/dL RDW 13.1 11.5 - 14.5 % Platelets 148 (L) 150 - 450 x10*3/uL Basic metabolic panel Result Value Ref Range Glucose 113 (H) 74 - 99 mg/dL Sodium 132 (L) 136 - 145 mmol/L Potassium 3.5 3.5 - 5.3 mmol/L Chloride 99 98 - 107 mmol/L Bicarbonate 27 21 - 32 mmol/L Anion Gap 10 10 - 20 mmol/L Urea Nitrogen 9 6 - 23 mg/dL Creatinine 0.54 0.50 - 1.30 mg/dL eGFR >90 >60 mL/min/1.73m*2 Calcium 8.1 (L) 8.6 - 10.3 mg/dL Magnesium Result Value Ref Range Magnesium 1.73 1.60 - 2.40 mg/dL Recent Imaging XR chest 1 view Final Result Mild atelectasis/infiltrates in the left base. No sizable pneumothorax. Left chest tube remains in place. MACRO: None. Signed by: Miguel A Chin 04/10/2023 9:14 AM Dictation workstation: [id number] XR chest 1 view Final Result Left chest tube in place. No visible pneumothorax. Streaky bibasilar opacities suggesting atelectasis. Signed by: Ivette Andrade 04/09/2023 6:37 PM Dictation workstation: [id number] XR chest 1 view Final Result 1. Left apical chest tube in place. No pneumothorax. 2. Chronic healed left posterior 5th, 6th, 7th rib fractures with cortical deformities. 3. Additional previously described fractures of the left posterior and posterolateral 9th through 12th ribs are better evaluated on the previous CT chest study. MACRO: None. Signed by: Brittney Holder 04/09/2023 11:49 AM Dictation workstation: [id number] XR chest 1 view Final Result Increased opacity at the left base. Multiple left-sided rib fractures. MACRO: none Signed by: Ronel Basurto 04/08/2023 11:32 AM Dictation workstation: [id number] XR chest 1 view Final Result 1. Combination of multiple left nonacute nonacute rib fracture deformities again partially visualized. 2. Left basilar opacification most confluent in the retrocardiac region again seen and may be due to a combination of atelectasis and or infiltrates. 3. No appreciable pneumothorax. MACRO: None. Signed by: Silvia Sood 04/07/2023 11:25 AM Dictation workstation: [id number] XR chest 1 view Final Result 1. Partial visualization of multiple left-sided rib deformities representing a combination of nonacute and acute fractures as better seen and described on recent chest CT. No appreciable pneumothorax. 2. Increased opacification of the left base may be due to a combination of consolidation, volume loss and possible small volume pleural effusion. MACRO: None. Signed by: Silvia Sood 04/07/2023 11:27 AM Dictation workstation: [id number] XR chest 1 view Final Result 1. No acute cardiopulmonary process. 2. Redemonstration of acute left posterolateral 9th through 12th rib fractures that are better evaluated on the previous CT chest study. More remote fractures of left posterior 5th through 7th ribs noted as well. MACRO: None. Signed by: Brittney Holder 04/05/2023 9:10 AM Dictation workstation: [id number] CT thoracic spine wo IV contrast Final Result Nondisplaced fractures of the posterior 12th, 11th, 10th rib. Ribs are incompletely visualized with this field of view. Trace left pleural effusion or hemothorax. No sign of thoracic vertebral body fracture or malalignment. No CT evidence of central canal stenosis. Signed by: Antoine Veloz 04/04/2023 7:41 AM Dictation workstation: [id number] CT lumbar spine wo IV contrast Final Result Nondisplaced fractures of the left 11th and 12th rib posteriorly. Severe discogenic degenerative changes of the lumbosacral junction. There is bulging disc and right paracentral disc extrusion. Disc material may contact the right S1 nerve root and should be correlated with any clinical findings of radiculopathy. There is mild central canal narrowing at this level and pwxj-[id number] bilateral neural foraminal narrowing. Signed by: Antoine Veloz 04/04/2023 7:37 AM Dictation workstation: [id number] CT chest abdomen pelvis w IV contrast Final Result Fractures of the posterior and posterolateral left 12th, 11th, 10th, and 9th rib. Trace left hemothorax. There is no sizable pneumothorax. Severe fatty metamorphosis of the liver. Severe discogenic degenerative changes at the lumbosacral junction, described in detail on the CT lumbar spine examination of the same day. The remainder of the chest, abdomen, and pelvis is unremarkable. There is no evidence solid or hollow visceral injury. Signed by: Antoine Veloz 04/04/2023 7:48 AM Dictation workstation: [id number] CT head wo IV contrast Final Result No CT evidence of acute intracranial hemorrhage or mass effect. Mucoperiosteal thickening of the ethmoid air cells. Signed by: Antoine Veloz 04/04/2023 7:21 AM Dictation workstation: [id number] CT cervical spine wo IV contrast Final Result Bckg-gs-jccmveni lower cervical spondylosis as described above. Mild multilevel bulging disc without significant central canal narrowing. Mild and moderate multilevel neural foraminal narrowing as described above. No sign of acute fracture or subluxation. Signed by: Antoine Veloz 04/04/2023 7:24 AM Dictation workstation: [id number] XR chest 1 view Final Result No radiographic evidence of acute cardiopulmonary pathology. MACRO: None. Signed by: Sadi Figueroa 04/04/2023 4:56 AM Dictation workstation: [id number] XR chest 1 view (Results Pending) No echocardiogram results found for the past 14 days Assessment/Plan: Consulted for a 47 year old male for observation post left sided VATS procedure with evacuation of hemothorax and plating of ribs 9 and 10. He had a fall in the shower and was brought to the ICU on 04/04 where he was treated for EtOH withdrawals and then transferred to the floor for further management. Patient underwent his VATS procedure with an intercostal nerve block. He was in severe pain over night and still in moderate pain currently. I am currently managing this critically ill patient for: Post VATS with evacuation of hemothorax and plating of ribs 9 and 10 Acute posttraumatic pain History of alcohol use disorder Daily Plan: Neuro/Psych/Pain Ctrl/Sedation: Discontinue COMPENSATOR pump return to scheduled and PRN medications Multimodal pain control: Scheduled Toradol, Tylenol, Robaxin, Lidoderm patch. PRN Dilaudid 0.5mg q2h, oxycodone 10 mg q4h Continue home Zoloft Phenobarbital taper for alcohol withdrawal Thiamine/folate Continue CIWA, currently day 6 Respiratory/ENT: Chest XR showed no pneumothorax or hemothorax post procedure, Chest tube removed, Subcutaneous emphysema present Continue supplemental oxygen, currently on 2L nasal cannula, wean as able Continue incentive spirometry and pulmonary hygiene DuoNebs as needed Nicotine patch ordered Cardiovascular: Maintain MAP greater than 65, not currently on any vasoactive agents Continue home hydrochlorothiazide/lisinopril GI: Started regular diet Renal/Volume Status (Intra & Extravascular): Urine output/electrolytes acceptable, no need for TRUSS ASSEMBLER BMP in morning Endocrine Maintain euglycemia, no insulin needed Infectious Disease: No systemic infectious concerns Given Ancef pre-procedure Heme/Onc: Transfuse for symptomatic anemia, no current indication MSK: Trauma following, PT/OT DVT Prophylaxis: Heparin GI Prophylaxis: not indicated Bowel Regimen: Senna + Miralax Diet: Regular CVC: None Jannet: None Spear: None Restraints: None Code Status: Full Dispo: Transfer ready I personally examined the patient, reviewed all lab results, and imaging studies. Critical care team is signing off on this patient as he no longer requires critical care services currently. If patient's condition does change feel free to reconsult us. Plan discussed with Dr. Juares Critical Care Time: 30 minutes Critical Care Kimani [facility]mod[facility]ar [facility]: 04/09/[facility]23 Patient: Ford Phelan Date of : 1975 Admit Date: 04/04/2023 Chief Complaint Patient presents with Fall Pt slipped getting out of the shower and fell forward, hit left side of body on the bath tub. History of Present Illness: Ford Phelan is a 47 y.o. year old male patient with Past Medical History of hypertension, vit b12 deficiency, alcohol abuse, daily smoker. Patient has a history of alcohol abuse and has been admitted at [facility] in the past for alcoholic pancreatitis as well as alcohol withdrawal. Patient arrived to [facility] emergency department 04/04 with complaints of mechanical fall at home while getting out of the shower. He had his left side on the edge of the bathtub. He denies hitting his head or losing consciousness. In the emergency department he was afebrile, stable vital signs, oxygen saturations low 90s on room air, pain with inspiration. Full trauma work-up was done which demonstrated fractures of the left ninth through 12th ribs. Alcohol level 204. Patient was admitted to the ICU with trauma consult for pain management and aggressive pulmonary hygiene. He was transferred from the ICU service on 04/07 and then consulted on 04/09 for observation post VATS procedure. Interval ICU Events: 04/09: Consulted today post left VATS procedure with evacuation of hemothorax and plating of left 9th and 10th rib. Patient states pain has been reduced significantly and laying in bed comfortably. Denies nausea, vomiting, and pain. Medical History: Past Medical History: Diagnosis Date High blood pressure No past surgical history on file. Medications Prior to Admission Medication Sig Dispense Refill Last Dose albuterol 90 mcg/actuation aerosol powdr breath activated inhaler Inhale 2 puffs every 4 hours if needed for wheezing. Unknown clonazePAM (KlonoPIN) 0.5 mg tablet Take 0.5 tablets (0.25 mg) by mouth 2 times a day as needed for anxiety. Unknown hydroCHLOROthiazide (HYDRODiuril) 12.5 mg tablet Take 1 tablet (12.5 mg) by mouth once daily. 04/02/2023 lisinopril 20 mg tablet Take 1 tablet (20 mg) by mouth once daily. 04/02/2023 sertraline (Zoloft) 100 mg tablet Take 1 tablet (100 mg) by mouth once daily. 04/02/2023 thiamine 100 mg tablet Take 1 tablet (100 mg) by mouth once daily. 04/02/2023 Bupropion Social History Tobacco Use Smoking status: Every Day Packs/day: 1 Types: Cigarettes Start date: 1997 Smokeless tobacco: Never Vaping Use Vaping Use: Every day Substance Use Topics Alcohol use: Yes Alcohol/week: 2.0 standard drinks of alcohol Types: 2 Standard drinks or equivalent per week Drug use: Never No family history on file. Hospital Medications: lactated Ringer's, 100 mL/hr Current Facility-Administered Medications: acetaminophen (Tylenol) tablet 975 mg, 975 mg, oral, q8h, Jorge Almodovar, PA-C, 975 mg at 04/08/23 1750 albuterol 90 mcg/actuation inhaler 2 puff, 2 puff, inhalation, q4h PRN, Jorge Almodovar, PA-C [Held by provider] enoxaparin (Lovenox) syringe 30 mg, 30 mg, subcutaneous, q12h, Jorge Almodovar, PA-C, 30 mg at 04/08/23 0923 folic acid (Folvite) tablet 1 mg, 1 mg, oral, Daily, Jorge Almodovar, PA-C, 1 mg at 04/08/23 09 guaiFENesin (Mucinex) 12 hr tablet 600 mg, 600 mg, oral, BID PRN, Jorge Almodovar, PA-C, 600 mg at 04/07/232013 heparin (porcine) injection 5,000 Units, 5,000 Units, subcutaneous, q8h, Taj Enciso, DAYANARA-PIT MANAGER hydroCHLOROthiazide (HYDRODiuril) tablet 12.5 mg, 12.5 mg, oral, Daily, Jorge Almodovar, PA-C, 12.5 mg at 04/08/23921 HYDROmorphone (Dilaudid) injection 0.5 mg, 0.5 mg, intravenous, q2h PRN, Taj Enciso APRN-MAANDA ketorolac (Toradol) injection 15 mg, 15 mg, intravenous, q6h, Jorge Almodovar, PA-C, 15 mg at 04/09/23214 lactated Ringer's infusion, 100 mL/hr, intravenous, Continuous, Jorge Almodovar, PA-C lidocaine 4 % patch 1 patch, 1 patch, transdermal, Daily, Jorge Almodovar, PA-C, 1 patch at 04/08/23921 lisinopril tablet 20 mg, 20 mg, oral, Daily, Jorge Almodovar, PA-C, 20 mg at 04/08/23921 magnesium oxide (Mag-Ox) tablet 800 mg, 800 mg, oral, Daily, Jorge Almodovar, PA-C, 800 mg at 04/08/23922 melatonin tablet 6 mg, 6 mg, oral, Nightly, Jorge Almodovar, PA-C, 6 mg at 04/08/232004 methocarbamol (Robaxin) tablet 1,000 mg, 1,000 mg, oral, q8h KORIN, Jorge Almodovar, PA-C, 1,000 mg at 04/08/232120 multivitamin with minerals 1 tablet, 1 tablet, oral, Daily, Jorge Almodovar, PA-C, 1 tablet at 04/08/23921 naloxone (Narcan) injection 0.2 mg, 0.2 mg, intravenous, q5 min PRN, Taj Enciso APRN-PIT MANAGER nicotine (Nicoderm CQ) 21 mg/24 hr patch 1 patch, 1 patch, transdermal, Daily FOLLOWED BY [START ON 05/21/2023] nicotine (Nicoderm CQ) 14 mg/24 hr patch 1 patch, 1 patch, transdermal, Daily FOLLOWED BY [START ON 06/04/2023] nicotine (Nicoderm CQ) 7 mg/24 hr patch 1 patch, 1 patch, transdermal, Daily, Jorge Almodovar, PA-C ondansetron ODT (Zofran-ODT) disintegrating tablet 4 mg, 4 mg, oral, q8h PRN OR ondansetron (Zofran) injection 4 mg, 4 mg, intravenous, q8h PRN, Jorge Almodovar PA-C, 4 mg at 04/09/23 0921 oxyCODONE (Roxicodone) immediate release tablet 10 mg, 10 mg, oral, q4h PRN, RAGINI Bryan-Sameer, 10 mg at 04/08/23 2245 oxyCODONE (Roxicodone) immediate release tablet 10 mg, 10 mg, oral, q4h PRN, FRANKIE Lamas oxyCODONE (Roxicodone) immediate release tablet 5 mg, 5 mg, oral, q4h PRN, FRANKIE Lamas oxygen (O2) therapy, , inhalation, Continuous PRN - O2/gases, Jorge Almodovar PA-C, 2 L/min at 04/09/23 0950 oxygen (O2) therapy, , inhalation, Continuous PRN - O2/gases, FRANKIE Lamas [COMPLETED] PHENobarbitaL (Luminal) tablet 97.2 mg, 97.2 mg, oral, TID, 97.2 mg at 04/06/232119 FOLLOWED BY [COMPLETED] PHENobarbitaL (Luminal) tablet 64.8 mg, 64.8 mg, oral, TID, 64.8 mg at 04/08/232004 FOLLOWED BY PHENobarbitaL (Luminal) tablet 32.4 mg, 32.4 mg, oral, TID, Jorge Almodovar PA-C polyethylene glycol (Glycolax, Miralax) packet 17 g, 17 g, oral, Daily, FRANKIE Lamas sertraline (Zoloft) tablet 100 mg, 100 mg, oral, Daily, Jorge Almodovar PA-C, 100 mg at 04/08/23922 thiamine (Vitamin B-1) tablet 100 mg, 100 mg, oral, Daily, RAGINI Bryan-C, 100 mg at 04/08/23922 Physical Exam: Heart Rate: [61-94] Temp: [36.1 C (97 F)-37.1 C (98.8 F)] Resp: [9-20] BP: (116-162)/(71-94) Height: [184 cm (6' 0.44)] Weight: [81.1 kg (178 lb 12.7 oz)] SpO2: [92 %-100 %] Physical Exam Constitutional: General: He is not in acute distress. Appearance: Normal appearance. HENT: Head: Normocephalic and atraumatic. Nose: Nose normal. No rhinorrhea. Mouth/Throat: Mouth: Mucous membranes are moist. Pharynx: Oropharynx is clear. No oropharyngeal exudate or posterior oropharyngeal erythema. Eyes: General: No scleral icterus. Extraocular Movements: Extraocular movements intact. Conjunctiva/sclera: Conjunctivae normal. Pupils: Pupils are equal, round, and reactive to light. Cardiovascular: Rate and Rhythm: Normal rate and regular rhythm. Pulses: Normal pulses. Heart sounds: Normal heart sounds. No murmur heard. Pulmonary: Effort: Pulmonary effort is normal. No respiratory distress. Breath sounds: No stridor. Wheezing present. Chest: Comments: Chest tube in left 4th intercostal space anterior axillary line Abdominal: General: Abdomen is flat. Bowel sounds are normal. There is no distension. Palpations: Abdomen is soft. Musculoskeletal: General: Normal range of motion. Cervical back: Normal range of motion and neck supple. Skin: General: Skin is warm. Capillary Refill: Capillary refill takes less than 2 seconds. Coloration: Skin is not pale. Neurological: General: No focal deficit present. Mental Status: He is alert and oriented to person, place, and time. Mental status is at baseline. Cranial Nerves: No cranial nerve deficit. Objective: Intake/Output Summary (Last 24 hours) at 04/09/2023 1210 Last data filed at 04/09/2023 0944 Gross per 24 hour Intake 700 ml Output 900 ml Net -200 ml Results for orders placed or performed during the hospital encounter of 04/04/23 (from the past 24 hour(s)) SST TOP Result Value Ref Range Extra Tube Hold for add-ons. Basic Metabolic Panel Result Value Ref Range Glucose 89 74 - 99 mg/dL Sodium 132 (L) 136 - 145 mmol/L Potassium 3.8 3.5 - 5.3 mmol/L Chloride 98 98 - 107 mmol/L Bicarbonate 28 21 - 32 mmol/L Anion Gap 10 10 - 20 mmol/L Urea Nitrogen 11 6 - 23 mg/dL Creatinine 0.60 0.50 - 1.30 mg/dL eGFR >90 >60 mL/min/1.73m*2 Calcium 8.6 8.6 - 10.3 mg/dL CBC Result Value Ref Range WBC 6.5 4.4 - 11.3 x10*3/uL nRBC 0.0 0.0 - 0.0 /100 WBCs RBC 4.04 (L) 4.50 - 5.90 x10*6/uL Hemoglobin 15.0 13.5 - 17.5 g/dL Hematocrit 41.9 41.0 - 52.0 % MCV 104 (H) 80 - 100 fL MCH 37.1 (H) 26.0 - 34.0 pg MCHC 35.8 32.0 - 36.0 g/dL RDW 13.0 11.5 - 14.5 % Platelets 156 150 - 450 x10*3/uL Magnesium Result Value Ref Range Magnesium 1.76 1.60 - 2.40 mg/dL Phosphorus Result Value Ref Range Phosphorus 3.4 2.5 - 4.9 mg/dL Recent Imaging XR chest 1 view Final Result 1. Left apical chest tube in place. No pneumothorax. 2. Chronic healed left posterior 5th, 6th, 7th rib fractures with cortical deformities. 3. Additional previously described fractures of the left posterior and posterolateral 9th through 12th ribs are better evaluated on the previous CT chest study. MACRO: None. Signed by: Brittney Holder 04/09/2023 11:49 AM Dictation workstation: [id number] XR chest 1 view Final Result Increased opacity at the left base. Multiple left-sided rib fractures. MACRO: none Signed by: Ronel Basurto 04/08/2023 11:32 AM Dictation workstation: [id number] XR chest 1 view Final Result 1. Combination of multiple left nonacute nonacute rib fracture deformities again partially visualized. 2. Left basilar opacification most confluent in the retrocardiac region again seen and may be due to a combination of atelectasis and or infiltrates. 3. No appreciable pneumothorax. MACRO: None. Signed by: Silvia Sood 04/07/2023 11:25 AM Dictation workstation: [id number] XR chest 1 view Final Result 1. Partial visualization of multiple left-sided rib deformities representing a combination of nonacute and acute fractures as better seen and described on recent chest CT. No appreciable pneumothorax. 2. Increased opacification of the left base may be due to a combination of consolidation, volume loss and possible small volume pleural effusion. MACRO: None. Signed by: Silvia Sood 04/07/2023 11:27 AM Dictation workstation: [id number] XR chest 1 view Final Result 1. No acute cardiopulmonary process. 2. Redemonstration of acute left posterolateral 9th through 12th rib fractures that are better evaluated on the previous CT chest study. More remote fractures of left posterior 5th through 7th ribs noted as well. MACRO: None. Signed by: Brittney Holder 04/05/2023 9:10 AM Dictation workstation: [id number] CT thoracic spine wo IV contrast Final Result Nondisplaced fractures of the posterior 12th, 11th, 10th rib. Ribs are incompletely visualized with this field of view. Trace left pleural effusion or hemothorax. No sign of thoracic vertebral body fracture or malalignment. No CT evidence of central canal stenosis. Signed by: Antoine Veloz 04/04/2023 7:41 AM Dictation workstation: [id number] CT lumbar spine wo IV contrast Final Result Nondisplaced fractures of the left 11th and 12th rib posteriorly. Severe discogenic degenerative changes of the lumbosacral junction. There is bulging disc and right paracentral disc extrusion. Disc material may contact the right S1 nerve root and should be correlated with any clinical findings of radiculopathy. There is mild central canal narrowing at this level and [id number] bilateral neural foraminal narrowing. Signed by: Antoine Veloz 04/04/2023 7:37 AM Dictation workstation: [id number] CT chest abdomen pelvis w IV contrast Final Result Fractures of the posterior and posterolateral left 12th, 11th, 10th, and 9th rib. Trace left hemothorax. There is no sizable pneumothorax. Severe fatty metamorphosis of the liver. Severe discogenic degenerative changes at the lumbosacral junction, described in detail on the CT lumbar spine examination of the same day. The remainder of the chest, abdomen, and pelvis is unremarkable. There is no evidence solid or hollow visceral injury. Signed by: Antoine Veloz 04/04/2023 7:48 AM Dictation workstation: [id number] CT head wo IV contrast Final Result No CT evidence of acute intracranial hemorrhage or mass effect. Mucoperiosteal thickening of the ethmoid air cells. Signed by: Antoine Veloz 04/04/2023 7:21 AM Dictation workstation: [id number] CT cervical spine wo IV contrast Final Result [id number]-kw-glbxpnof lower cervical spondylosis as described above. Mild multilevel bulging disc without significant central canal narrowing. Mild and moderate multilevel neural foraminal narrowing as described above. No sign of acute fracture or subluxation. Signed by: Antoine Veloz 04/04/2023 7:24 AM Dictation workstation: [id number] XR chest 1 view Final Result No radiographic evidence of acute cardiopulmonary pathology. MACRO: None. Signed by: Sadi Figueroa 04/04/2023 4:56 AM Dictation workstation: [id number] No echocardiogram results found for the past 14 days Assessment/Plan: Consulted for a 47 year old male for observation post left sided VATS procedure with evacuation of hemothorax and plating of ribs 9 and 10. He had a fall in the shower and was brought to the ICU on 04/04 where he was treated for EtOH withdrawals and then transferred to the floor for further management. Patient underwent his VATS procedure with an intercostal nerve block. He denies nausea, vomiting, and pain. I am currently managing this critically ill patient for: Post VATS with evacuation of hemothorax and plating of ribs 9 and 10 Acute posttraumatic pain History of alcohol use disorder Daily Plan: Neuro/Psych/Pain Ctrl/Sedation: Multimodal pain control: Scheduled Toradol, Tylenol, Robaxin, Lidoderm patch. PRN Dilaudid 0.5mg q2h, oxycodone 10 mg q4h Continue home Zoloft Phenobarbital taper for alcohol withdrawal Thiamine/folate Continue CIWA, currently day 5 Respiratory/ENT: Chest XR showed no pneumothorax or hemothorax post procedure, Chest tube to water seal Continue supplemental oxygen, currently on 3L nasal cannula, wean as able Continue incentive spirometry DuoNebs as needed Nicotine patch ordered Cardiovascular: Maintain MAP greater than 65, not currently on any vasoactive agents Continue home hydrochlorothiazide/lisinopril GI: Started regular diet Renal/Volume Status (Intra & Extravascular): Urine output/electrolytes acceptable, no need for TRUSS ASSEMBLER BMP in morning Endocrine Maintain euglycemia, no insulin needed Given 8 mg of decadron pre-procedure Infectious Disease: No systemic infectious concerns Given Ancef pre-procedure Heme/Onc: Transfuse for symptomatic anemia, no current indication MSK: Trauma following, PT/OT DVT Prophylaxis: Held GI Prophylaxis: not indicated Bowel Regimen: Miralax Diet: Regular CVC: None [place]: Left radial Spear: None Restraints: None Code Status: Full Dispo: ICU care today transfer tomorrow Plan Discussed with Dr. Juares Critical Care Time: 20 minutes Critical Care Kimani Almodovar PA-C Associated Order(s): Inpatient consult to Thoracic Surgery Inpatient consult to Thoracic Surgery Consult performed by: Taj Enciso APRN-PIT MANAGER Consult ordered by: Chris Garcia MD Reason For Consult Displaced rib fracture History Of Present Illness Ford Phelan is a 47 y.o. male with history of hypertension, tobacco use, alcohol use, and alcoholic pancreatitis. Presented on 04/04 with left-sided chest pain following a fall that occurred while getting out of the shower. Alcohol level at that time 204. CT showing fractures of the left ninth through 12th ribs with ninth rib displacement. Admitted to the ICU for pain management and pulmonary hygiene and monitoring. Thoracic surgery consulted for possible rib plating. At time of consultation, the patient is in no acute distress. His inspiratory effort is extremely limited due to pain. He is afebrile, hemodynamically stable, and maintaining adequate saturations on room air. He is requiring frequent administration of IV Dilaudid for pain control, cough effort is very poor. Findings have been reviewed with Dr. Cox, with recommendations to plate ribs for pain control. Procedure tentatively scheduled for 04/09. Past Medical History He has a past medical history of High blood pressure. Surgical History He has no past surgical history on file. Social History He reports that he has been smoking cigarettes. He started smoking about 25 years ago. He has been smoking an average of 1 pack per day. He has never used smokeless tobacco. He reports current alcohol use of about 2.0 standard drinks of alcohol per week. He reports that he does not use drugs. Family History No family history on file. Allergies Bupropion Review of Systems Constitutional: Positive for activity change. Negative for fatigue and fever. HENT: Negative. Eyes: Negative. Respiratory: Positive for cough. Cardiovascular: Left sided chest pain with inspiration and cough Gastrointestinal: Negative. Endocrine: Negative. Genitourinary: Negative. Musculoskeletal: Negative. Allergic/Immunologic: Negative. Neurological: Negative. Hematological: Negative. Psychiatric/Behavioral: Negative. Physical Exam Constitutional: General: He is not in acute distress. Appearance: Normal appearance. HENT: Head: Normocephalic. Nose: Nose normal. Mouth/Throat: Mouth: Mucous membranes are moist. Eyes: Pupils: Pupils are equal, round, and reactive to light. Cardiovascular: Rate and Rhythm: Normal rate and regular rhythm. Pulmonary: Comments: Diminished inspiratory effort BBS diminished at bases otherwise CTA Abdominal: General: Bowel sounds are normal. Palpations: Abdomen is soft. Tenderness: There is no abdominal tenderness. Genitourinary: Comments: Voiding clear yellow Musculoskeletal: General: Normal range of motion. Cervical back: Normal range of motion. Skin: General: Skin is warm and dry. Neurological: General: No focal deficit present. Mental Status: He is alert and oriented to person, place, and time. Psychiatric: Mood and Affect: Mood normal. Last Recorded Vitals Blood pressure 107/62, pulse 75, temperature 36.4 C (97.5 F), temperature source Temporal, resp. rate 12, height 1.854 m (6' 1), weight 84.1 kg (185 lb 6.5 oz), SpO2 98 %. Relevant Results Results for orders placed or performed during the hospital encounter of 04/04/23 (from the past 24 hour(s)) Basic Metabolic Panel Result Value Ref Range Glucose 107 (H) 74 - 99 mg/dL Sodium 131 (L) 136 - 145 mmol/L Potassium 3.5 3.5 - 5.3 mmol/L Chloride 95 (L) 98 - 107 mmol/L Bicarbonate 31 21 - 32 mmol/L Anion Gap 9 (L) 10 - 20 mmol/L Urea Nitrogen 9 6 - 23 mg/dL Creatinine 0.56 0.50 - 1.30 mg/dL eGFR >90 >60 mL/min/1.73m*2 Calcium 8.1 (L) 8.6 - 10.3 mg/dL CBC Result Value Ref Range WBC 6.8 4.4 - 11.3 x10*3/uL nRBC 0.0 0.0 - 0.0 /100 WBCs RBC 3.58 (L) 4.50 - 5.90 x10*6/uL Hemoglobin 13.3 (L) 13.5 - 17.5 g/dL Hematocrit 36.9 (L) 41.0 - 52.0 % MCV 103 (H) 80 - 100 fL MCH 37.2 (H) 26.0 - 34.0 pg MCHC 36.0 32.0 - 36.0 g/dL RDW 12.8 11.5 - 14.5 % Platelets 118 (L) 150 - 450 x10*3/uL Magnesium Result Value Ref Range Magnesium 1.80 1.60 - 2.40 mg/dL Phosphorus Result Value Ref Range Phosphorus 2.6 2.5 - 4.9 mg/dL XR chest 1 view Result Date: 04/07/2023 Interpreted By: Silvia Sood, STUDY: XR CHEST 1 VIEW; 04/06/2023 10:48 am INDICATION: Signs/Symptoms:rib fractures. COMPARISON: 04/04/2023. ACCESSION NUMBER(S): [id number] ORDERING CLINICIAN: CHRIS GARCIA FINDINGS: CARDIOMEDIASTINAL SILHOUETTE: Borderline size of the cardiac silhouette is stable. LUNGS: There is increased opacification of the left base which may be due to a combination of consolidation, volume loss and possible small volume pleural effusion. No right lung consolidation is seen. No appreciable pneumothorax. ABDOMEN: No remarkable upper abdominal findings. BONES: Multiple left-sided rib deformities are partially visualized representing a combination of nonacute and acute fractures as better seen and described on previous chest CT. 1. Partial visualization of multiple left-sided rib deformities representing a combination of nonacute and acute fractures as better seen and described on recent chest CT. No appreciable pneumothorax. 2. Increased opacification of the left base may be due to a combination of consolidation, volume loss and possible small volume pleural effusion. MACRO: None. Signed by: Silvia Sood 04/07/2023 11:27 AM Dictation workstation: [id number] XR chest 1 view Result Date: 04/07/2023 Interpreted By: Silvia Sood, STUDY: XR CHEST 1 VIEW; 04/07/2023 5:37 am INDICATION: Signs/Symptoms:rib fractures. COMPARISON: 04/06/2023. ACCESSION NUMBER(S): [id number] ORDERING CLINICIAN: CHRIS GARCIA FINDINGS: CARDIOMEDIASTINAL SILHOUETTE: Borderline size of the cardiac silhouette is stable. LUNGS: Left basilar opacification most confluent in the retrocardiac region may represent atelectasis and/or infiltrate. Small left effusion not excluded. Right midlung mild linear atelectasis or scarring is present. No appreciable pneumothorax. ABDOMEN: No remarkable upper abdominal findings. BONES: Combination of multiple left nonacute and acute rib fracture deformities are partially visualized as better seen and described on previous CT. 1. Combination of multiple left nonacute nonacute rib fracture deformities again partially visualized. 2. Left basilar opacification most confluent in the retrocardiac region again seen and may be due to a combination of atelectasis and or infiltrates. 3. No appreciable pneumothorax. MACRO: None. Signed by: Silvia Sood 04/07/2023 11:25 AM Dictation workstation: [id number] Scheduled medications acetaminophen, 975 mg, oral, q8h enoxaparin, 30 mg, subcutaneous, q12h folic acid, 1 mg, oral, Daily hydroCHLOROthiazide, 12.5 mg, oral, Daily ketorolac, 15 mg, intravenous, q6h lidocaine, 1 patch, transdermal, Daily lisinopril, 20 mg, oral, Daily magnesium oxide, 800 mg, oral, Daily melatonin, 6 mg, oral, Nightly methocarbamol, 1,000 mg, oral, q8h KORIN multivitamin with minerals, 1 tablet, oral, Daily nicotine, 1 patch, transdermal, Daily Followed by [START ON 05/16/2023] nicotine, 1 patch, transdermal, Daily Followed by [START ON 05/30/2023] nicotine, 1 patch, transdermal, Daily PHENobarbitaL, 64.8 mg, oral, TID Followed by [START ON 04/09/2023] PHENobarbitaL, 32.4 mg, oral, TID polyethylene glycol, 17 g, oral, Daily sertraline, 100 mg, oral, Daily thiamine, 100 mg, oral, Daily Continuous medications PRN medications PRN medications: albuterol, guaiFENesin, HYDROmorphone, naloxone, ondansetron ODT OR ondansetron, oxyCODONE, oxyCODONE, oxygen Assessment/Plan Multiple rib fractures following mechanical fall -Presented to ED with left-sided chest pain following a mechanical fall in the shower which he sustained fractures of the ninth through 12th ribs with ninth rib displacement. Significant pain that is prohibitive of effective coughing/pulmonary hygiene and placing patient at risk for complications of pneumonia. Findings have been reviewed with Dr Cox, recommend rib plating. Procedure has been scheduled for 04/09. I spent 60 minutes in the professional and overall care of this patient. Associated attestation - Isaac Cox MD - 04/07/2023 3:40 PM EST Ford Phelan is a 47 y.o. male consulted by Dr Garcia for evaluation and treatment of rib fractures. He is a previous healthy gentleman suffered a fall in the shower and broke several of his left-sided ribs. After trauma evaluation, he was started on the multiple IV pain medications. However he still have significant pain especially when he take a deep breath or cough. 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 This amount of pain would prevent him to go back to work in a reasonable time. On exam, this patient is alert oriented, NCAT, sclera anicterics, breathing shallow requiring O2 supplementation, regular rate and rhythm, no edema noted. Abdomen soft non-tender. No focal neurological deficits. Moving all extremities. Mood and affect normal. I reviewed the CT scan from 04/04. It showed left ninth, 10th and 11th rib fractures. The ninth rib was completely fractured with significant displacement. There is no pneumothorax or hemothorax. I reviewed his labs from this admission. It showed normal hgb and creatinine. In my opinion, this patient suffered a fall with several rib fractures. His pain control is suboptimal probably due to very displaced ninth rib. Given the degree of fracture, he met indication for replating. I discussed the benefit of replacing mainly to minimize his posttrauma pain and improve his quality of life. Surgical risk include bleeding, infection, air leak, and postop pain. The alternative is conservative and pain management. Patient consent to proceed. Thank you for involving me in the care of this patient. Isaac Cox MD Thoracic Surgeon [facility] Assistant Spa Directornew product trainer [facility] Office phone: Pager: [phone] Reason For Consult Rib fractures History Of Present Illness Ford Phelan is a 47 y.o. male presenting with rib fracture. This is an otherwise healthy 47-year-old male who had a mechanical fall at home while getting out of the shower. He hit his left side. Denies hitting his head or losing consciousness. Went to the emergency room. Afebrile, vitals are stable, satting in the low 90s on room air with pain on breathing. Full trauma work-up was done which only demonstrated fractures of the left ninth through 12th rib. Was consulted for further work-up and management. Past Medical History HTN Surgical History He has no past surgical history on file. Social History He has no history on file for tobacco use, alcohol use, and drug use. Family History No family history on file. Allergies Bupropion Review of Systems Denies any pain anywhere else, denies feeling ill before fall, denies any mental status change Physical Exam Gen: NAD, Aax3 Head: Normocephalic, atraumatic Eyes: EOMI, anicteric Ears: External atraumatic Nares: No blood and atraumatic Teeth: Good dentition, no blood Neck: Supple, no evidence of tracheal deviation, no C-spine tenderness Chest: Pain on Left lower chest with some fullness on chest and minimal crepitus, breaths are CTAB Heart: RRR Abd; Soft, ND, NTTP Back: tender on left lateral back but not in midline Extremites - good ROMx4, no visible traumas, pulses 2+ in radial, DP, PT Neuro: CN II-XII grossly intact, moving extremities x4 with sensation throughout Last Recorded Vitals Blood pressure 124/84, pulse 61, temperature 36.2 C (97.2 F), resp. rate 18, height 1.854 m (6' 1), weight 81.6 kg (180 lb), SpO2 95 %. Relevant Results Component Latest Ref Rng 04/04/2023 WBC 4.4 - 11.3 x10*3/uL 8.4 nRBC 0.0 - 0.0 /100 WBCs 0.0 RBC 4.50 - 5.90 x10*6/uL 4.39 (L) HEMOGLOBIN 13.5 - 17.5 g/dL 16.4 HEMATOCRIT 41.0 - 52.0 % 44.2 MCV 80 - 100 fL 101 (H) MCH 26.0 - 34.0 pg 37.4 (H) MCHC 32.0 - 36.0 g/dL 37.1 (H) RED CELL DISTRIBUTION WIDTH 11.5 - 14.5 % 13.7 Platelets 150 - 450 x10*3/uL 136 (L) Neutrophils % 40.0 - 80.0 % 70.9 Immature Granulocytes %, Automated 0.0 - 0.9 % 0.4 Lymphocytes % 13.0 - 44.0 % 19.3 Monocytes % 2.0 - 10.0 % 7.9 Eosinophils % 0.0 - 6.0 % 0.8 Basophils % 0.0 - 2.0 % 0.7 Neutrophils Absolute 1.20 - 7.70 x10*3/uL 5.92 Immature Granulocytes Absolute, Automated 0.00 - 0.70 x10*3/uL 0.03 Lymphocytes Absolute 1.20 - 4.80 x10*3/uL 1.61 Monocytes Absolute 0.10 - 1.00 x10*3/uL 0.66 Eosinophils Absolute 0.00 - 0.70 x10*3/uL 0.07 Basophils Absolute 0.00 - 0.10 x10*3/uL 0.06 GLUCOSE 74 - 99 mg/dL 112 (H) SODIUM 136 - 145 mmol/L 142 POTASSIUM 3.5 - 5.3 mmol/L 2.7 (LL) CHLORIDE 98 - 107 mmol/L 101 Bicarbonate 21 - 32 mmol/L 29 Anion Gap 10 - 20 mmol/L 15 Blood Urea Nitrogen 6 - 23 mg/dL 6 Creatinine 0.50 - 1.30 mg/dL 0.55 EGFR >60 mL/min/1.73m*2 >90 Calcium 8.6 - 10.3 mg/dL 8.2 (L) Albumin 3.4 - 5.0 g/dL 3.6 Alkaline Phosphatase 33 - 120 U/L 139 (H) Total Protein 6.4 - 8.2 g/dL 6.1 (L) AST 9 - 39 U/L 207 (H) Bilirubin Total 0.0 - 1.2 mg/dL 1.1 ALT 10 - 52 U/L 113 (H) LIPASE 9 - 82 U/L 205 (H) MAGNESIUM 1.60 - 2.40 mg/dL 1.72 Legend: (L) Low (H) High (LL) Low Panic Narrative & Impression Interpreted By: Antoine Veloz, STUDY: CT HEAD WO IV CONTRAST; 04/04/2023 6:55 am INDICATION: fall. COMPARISON: None. ACCESSION NUMBER(S): [id number] ORDERING CLINICIAN: JOHANNA RIOS TECHNIQUE: Contiguous unenhanced axial CT sections are performed from the skull base to the vertex. FINDINGS: The osseous structures are intact. There is moderate mucoperiosteal thickening of the ethmoid air cells. The cortical sulci and CSF spaces are symmetric in appearance. There is no sign of parenchymal hematoma or dense extra-axial fluid collection. There is no localized edema, mass effect, or shift of the midline. The liriano matter/white matter differentiation is preserved. There is a 2 3 mm basal ganglia calcification on the right. IMPRESSION: No CT evidence of acute intracranial hemorrhage or mass effect. Mucoperiosteal thickening of the ethmoid air cells. Signed by: Antoine Veloz 04/04/2023 7:21 AM Dictation workstation: [id number] Narrative & Impression Interpreted By: Antoine Veloz, STUDY: CT CERVICAL SPINE WO IV CONTRAST; 04/04/2023 6:55 am INDICATION: Signs/Symptoms:fall. COMPARISON: None. ACCESSION NUMBER(S): [id number] ORDERING CLINICIAN: JOHANNA RIOS TECHNIQUE: Contiguous axial CT sections are performed from the skullbase to the upper thoracic spine and supplemented with coronal and sagittal reformatted images. FINDINGS: The cervical vertebral body alignment is within normal limits. The facet joints align normally. The cervical vertebral body heights are maintained. There is no sign of acute fracture. There is no bone destruction or aggressive periosteal reaction. No lytic or blastic lesion is detected. There is mild cervical spondylosis at C4-5 and mild to moderate cervical spondylosis at C5-6 and C6-7 with disc space narrowing and small marginal osteophytes. There is mild multilevel facet arthrosis and uncovertebral arthrosis. There is mild narrowing of the right neural foramen at C4-5. There is moderate narrowing of the left neural foramina C5-6 and C6-7 and mild narrowing on the right. There is mild bulging disc at C4-5 and C5-6 without significant central canal narrowing. The surrounding soft tissue structures are unremarkable. There is no prevertebral soft tissue swelling or retropharyngeal air. IMPRESSION: Ddhd-jx-ldzwyemt lower cervical spondylosis as described above. Mild multilevel bulging disc without significant central canal narrowing. Mild and moderate multilevel neural foraminal narrowing as described above. No sign of acute fracture or subluxation. Signed by: Antoine Veloz 04/04/2023 7:24 AM Dictation workstation: [id number] Interpreted By: Antoine Veloz, STUDY: CT CHEST ABDOMEN PELVIS W IV CONTRAST; 04/04/2023 6:57 am INDICATION: Signs/Symptoms:left rib pain/ bruising after fall. Patient fell in the shower with left-sided chest pain. COMPARISON: None. ACCESSION NUMBER(S): [id number] ORDERING CLINICIAN: JOHANNA RIOS TECHNIQUE: Contiguous axial CT sections are performed from the thoracic inlet to lesser trochanters following the bolus administration of 90 cc of intravenous Omnipaque 350. FINDINGS: There is mild dependent edema or atelectasis in the lower lobes. There is trace left pleural effusion or hemothorax. There is no pneumothorax. There is a fracture of the left 12th rib which appears minimally displaced with slight cortical offset. There are fractures of the left 11th rib. A posterior fractures nondisplaced. A posterolateral fracture is minimally displaced at the anterior cortex. There is a fracture of the left 10th rib which is mildly displaced posteriorly and posterolaterally. There is a displaced fracture of the posterior left 9th rib with comminution. There is displacement of 1 bone width. There is surrounding edema. The remaining visualized osseous structures are intact. The thoracic aorta is of normal caliber and enhancement. There is no aortic dissection. There is no pathologic lymph node enlargement in the mediastinum or pulmonary ramirez. There is no mediastinal fluid collection or pneumomediastinum. There is no pneumothorax. There is no intraluminal filling defect in the main pulmonary artery, right left pulmonary artery, or lobar arteries. There is diffuse fatty metamorphosis of the liver with some fatty sparing surrounding the gallbladder. No space-occupying mass is detected. The gallbladder is distended though otherwise unremarkable. The spleen, pancreas, and adrenal glands are of normal CT appearance. The kidneys are symmetric in size and enhance symmetrically and uniformly. There is no hydronephrosis or renal calculus. There is no hydroureter or obstructing ureteral calculus. The urinary bladder is not opacified though is well distended and otherwise unremarkable. There is no bladder calculus. The abdominal aorta is of normal and uniform caliber. The aorta enhances normally. There is no periaortic mass or fluid collection. The IVC is unremarkable. There is no bowel distension or infiltration of the bowel mesentery. The appendix has a normal appearance. There is no free air or free fluid collection in the abdomen or pelvis. There is no herniated bowel. There is a tiny fat containing umbilical hernia. There is severe discogenic degenerative changes of the lumbosacral junction which are described in detail on the CT lumbar spine examination of the same day. IMPRESSION: Fractures of the posterior and posterolateral left 12th, 11th, 10th, and 9th rib. Trace left hemothorax. There is no sizable pneumothorax. Severe fatty metamorphosis of the liver. Severe discogenic degenerative changes at the lumbosacral junction, described in detail on the CT lumbar spine examination of the same day. The remainder of the chest, abdomen, and pelvis is unremarkable. There is no evidence solid or hollow visceral injury. Interpreted By: Antoine Veloz, STUDY: CT THORACIC SPINE WO IV CONTRAST; 04/04/2023 7:01 am INDICATION: Signs/Symptoms:fall. COMPARISON: None. ACCESSION NUMBER(S): [id number] ORDERING CLINICIAN: JOHANNA RIOS TECHNIQUE: Contiguous axial CT sections are performed through the thoracic spine and supplemented with coronal and sagittal reformatted images. FINDINGS: There is slight levoconvexity of the upper thoracic spine. The thoracic vertebral body alignment is otherwise within normal limits. The facet joints align normally. There are nondisplaced fractures of the posterior left 12th, 11th, and 10th rib. The ribs are incompletely visualized with this field of view. There is trace pleural fluid posteriorly on the left. The thoracic vertebral body heights are maintained. There are small Schmorl's node deformity at the inferior endplates T11 and T10 to the left of midline. There is otherwise no sign of thoracic vertebral body fracture. There is no bone destruction or aggressive periosteal reaction. No lytic or blastic lesion is detected. There is no significant central canal stenosis. The spinal cord is poorly characterized with CT. IMPRESSION: Nondisplaced fractures of the posterior 12th, 11th, 10th rib. Ribs are incompletely visualized with this field of view. Trace left pleural effusion or hemothorax. No sign of thoracic vertebral body fracture or malalignment. No CT evidence of central canal stenosis. Signed by: Antoine Veloz 04/04/2023 7:41 AM Dictation workstation: [id number] Narrative & Impression Interpreted By: Antoine Veloz, STUDY: CT LUMBAR SPINE WO IV CONTRAST; 04/04/2023 7:01 am INDICATION: Signs/Symptoms:fall. COMPARISON: None. ACCESSION NUMBER(S): [id number] ORDERING CLINICIAN: JOHANNA RIOS TECHNIQUE: Contiguous axial CT sections are performed through the lumbar spine is supplemented with coronal and sagittal reformatted images. FINDINGS: There is straightening of the lumbar lordosis. There is posterior subluxation of C5 relative to C6 measuring 6 mm. There are severe discogenic degenerative changes at L5-S1 with severe disc space narrowing and endplate sclerosis. There is vacuum phenomenon at this level. There is mild disc space narrowing at L1-2. The remaining lumbar disc space heights are preserved. The lumbar vertebral body heights are maintained. There are nondisplaced fractures of the posterior left 11th and 12th rib. There is no evidence lumbar vertebral body fracture. There is no bone destruction or aggressive periosteal reaction. No lytic or blastic lesion is identified. There are moderate osteoarthritic changes of both sacroiliac joints. The T12-L1 disc space level is unremarkable. The L1-2 disc space level is unremarkable. The L2-3 disc space level demonstrates mild bilateral facet arthrosis. There is mild bulging disc though no significant central canal or neural foraminal stenosis. The L3-4 disc space level demonstrates mild bilateral facet arthrosis and ligamentum flavum hypertrophy. There is mild circumferential bulging disc with mild central canal narrowing. There is mild disc encroachment on the caudal neural foramen bilaterally. The L4-5 disc space level demonstrates mild bilateral facet arthrosis and ligamentum flavum hypertrophy. There is mild bulging disc with flattening of the anterior thecal sac and mild central canal narrowing. There is mild disc encroachment on the caudal neural foramen bilaterally. The L5-S1 disc space level demonstrates mild bilateral facet arthrosis. Is bulging disc and marginal osteophyte asymmetric to the left. There is extruded disc with vacuum phenomena posteriorly to the right of midline. This finding may contact the right S1 nerve root. There is mild central canal narrowing. There is disc and osteophyte encroachment with moderate to severe bilateral neural foraminal narrowing. IMPRESSION: Nondisplaced fractures of the left 11th and 12th rib posteriorly. Severe discogenic degenerative changes of the lumbosacral junction. There is bulging disc and right paracentral disc extrusion. Disc material may contact the right S1 nerve root and should be correlated with any clinical findings of radiculopathy. There is mild central canal narrowing at this level and [id number] bilateral neural foraminal narrowing. Signed by: Antoine Veloz 04/04/2023 7:37 AM Dictation workstation: [id number] Images and labs personally reviewed Assessment/Plan 47-year-old male otherwise healthy with 4 rib fractures. He is splinting on exam and only satting in the low 90s. Is in significant pain as well. Plan to admit to the ICU for observation and pain control. We will be on primary in the ICU with ICU on consult. I spent 51 minutes in the professional and overall care of this patient. Chris Garcia MD 04/04/23 11:00 AM documented in this encounter [facility] Work Phone: 04-11-2023 Plan of care note Problem: Pain Goal: Takes deep breaths with improved pain control throughout the shift Outcome: Progressing Goal: Turns in bed with improved pain control throughout the shift Outcome: Progressing Goal: Walks with improved pain control throughout the shift Outcome: Progressing Goal: Performs ADL's with improved pain control throughout shift Outcome: Progressing Goal: Free from opioid side effects throughout the shift Outcome: Progressing Problem: Discharge Planning Goal: Discharge to home or other facility with appropriate resources Outcome: Progressing Problem: Skin Goal: Participates in plan/prevention/treatment measures Outcome: Progressing Goal: Promote/optimize nutrition Outcome: Progressing [facility] 04-11-2023 Miscellaneous Notes Problem: Pain Goal: Takes deep breaths with improved pain control throughout the shift Outcome: Progressing Goal: Turns in bed with improved pain control throughout the shift Outcome: Progressing Goal: Walks with improved pain control throughout the shift Outcome: Progressing Goal: Performs ADL's with improved pain control throughout shift Outcome: Progressing Goal: Free from opioid side effects throughout the shift Outcome: Progressing Problem: Discharge Planning Goal: Discharge to home or other facility with appropriate resources Outcome: Progressing Problem: Skin Goal: Participates in plan/prevention/treatment measures Outcome: Progressing Goal: Promote/optimize nutrition Outcome: Progressing The patient's goals for the shift include remaining safe and performing respiratory interventions such as cough/deep breathing and incentive spirometry. The clinical goals for the shift include Patient will report a pain level of 5 or less by the end of the shift. Over the shift, the patient did not make progress toward the following goals. Barriers to progression include pain and fatigue. Recommendations to address these barriers include frequent education and encouragement throughout the shift. [facility] SIGNIFICANT EVENT NOTE: Date: 04/09/2023 Patient: Ford Phelan Date of : 1975 Admit Date: 04/04/2023 I was called to bedside by nursing at 17:30 Concerns: Moderate to severe pain with tachycardia and hypertension. I was asked to come see the patient because he woke up in pain in a lateral decubitus position with knees flexed. The nurse Zeus Cai notified me about this and that the patient lung sounded worse. Upon arrival the patient was screaming and rated the pain a 10/10. Patient denies palpitation, tunnel visioning, and shortness of breath. Exam: General: Patient positioned right lateral decubitus with knees flexed and moaning, afebrile, Neuro: Alert & oriented x3 HEENT: PERRLA, EOMI Pulm: Significant wheezes in left lower lobe, No accessory muscle use or signs of respiratory distress Cardio: S1 and S2 crisp without murmurs and gallops, tachycardia GI: Soft, non tender MSK: +2 pulses, Full range of motion XR chest 1 view 04/09/2023 Narrative Interpreted By: Ivette Andrade, STUDY: XR CHEST 1 VIEW; 04/09/2023 5:44 pm INDICATION: Signs/Symptoms:New onset SOB post procedure. COMPARISON: 04/09/2023 ACCESSION NUMBER(S): [id number] ORDERING CLINICIAN: JORGE ALMODOVAR FINDINGS: Left-sided chest tube present. No visible pneumothorax. Left chest wall subcutaneous emphysema. Streaky bibasilar opacities suggestive of atelectasis. Normal heart size. No large pleural effusion. Impression Left chest tube in place. No visible pneumothorax. Streaky bibasilar opacities suggesting atelectasis. Signed by: Ivette Andrade 04/09/2023 6:37 PM Dictation workstation: [id number] Action Plan: Chest XR Streaky bibasilar opacities suggesting atelectasis. Ketamine 25 mg IV once given by Praneeth Anderson CNP Continue scheduled and PRN analgesic medications Acapella Order to clear secretions when pain is controlled Attending Physician Notified: Dr. Juares was notified and inpatient surgeon Dr. Levy was notified and evaluated patient at bedside. I spent 30 minutes of critical care time to personally assess the patient, and reviewing history, labs, and imaging. [facility] [place] Jorge Almodovar PA-C I was the surgical first assistant to Dr. Cox for Ford Phelan's procedure on 04/09/23. Procedure: Left VATS open reduction intrathoracic plating of left 9th and 10th Left VATS evacuation of hemothorax Intercostal nerve block Karlene Adams PA-C The patient's goals for the shift include The clinical goals for the shift include pain control Over the shift, the patient did make progress toward the following goals. Recommendations to address these barriers include deep breathing and repositioning. [facility], patient is AOx4, pain is 3-4 Date: 04/04/2023 - 04/09/2023 OR Location: [facility] OR Name: Ford Phelan, : 1975, Age: 47 y.o., , Sex: male Preop Diagnosis: traumatic rib fracture Postop Diagnosis: traumatic rib fracture, hemothorax Procedures: Left VATS open reduction intrathoracic plating of left 9th and 10th Left VATS evacuation of hemothorax Bronchoscopy Intercostal nerve block Surgeons: Isaac Cox MD Resident/Fellow/Other Engineer Automated Equipment: Surgeon(s) and Role: * Karlene Adams PA-C - Assisting Anesthesia: General ASA: II Anesthesia Staff: Anesthesiologist: Francisco Cantrell MD [employer] SALES HOST/HOSTESS: Luis Greer APRN-CHERYL Estimated Blood Loss: 10mL Intra-op Medications: Medication Name Total Dose sodium chloride 0.9 % irrigation solution 1,000 mL enoxaparin (Lovenox) syringe 30 mg Cannot be calculated ceFAZolin in dextrose (iso-os) (Ancef) IVPB 2 g 2 g Anesthesia Record Intraprocedure I/O Totals Intake Propofol Drip 0.00 mL The total shown is the total volume documented since Anesthesia Start was filed. Total Intake 0 mL Specimen: No specimens collected Staff: Training Manager: Sara Brown RN Scrub Person: Rickey Rand Findings: Old blood in the chest about 300 cc evacuated, severe displaced posterior left ninth rib reduced. Displaced left 10th rib. Indication: This is a 47 year old gentleman with history of fall recently with multiple rib fractures whose pain was not well controlled with conservative pain management. CT scan showed severely displaced left ninth rib and the fractured rib end poking into his lung parenchyma. He cannot do deep breathing or coughing due to pain. I offered to him rib plating procedure minimally invasively. The risk of surgery including bleeding, infection, postop pain and the air leak. The alternative is to continue current pain management. Patient consent to proceed with surgery. Operation Details: Patient was brought to operation room. A time-out was performed. Patient name, MRN and procedure were confirmed and all staff were in agreement. Patient received subcutaneous heparin. SCDs were placed and working. Ancef was given prior to incision. Patient was induced and intubated with a double lumen tube without issue. We then performed bronchoscopy through the double lumen tube. There was copious amount of thin secretions in airway. The secretion was sucked out as much as possible. The airway anatomy was noticeable for early bifurcated RUL bronchus. Then we turned the patient to right decubitus position. All pressure points are padded. Double lumen was confirmed again in correct position. The chest was prepped and draped in sterile fashion. A pre-incision time out was performed. All staff are in agreement to proceed. I made my camera port at 6th intercostal space anteriorly. The chest was entered without issue. Large amount of old hemothorax was drained out about 300cc. I performed intercostal nerve blocks using 0.25 Marcaine with epi about 5cc per intercostal space. Then I identified the posterior displaced fracture ninth rib easily. I then made my posterior incision right above the fracture rib. I dissected down to the chest wall using cautery. I used a medium sized wound protector for good exposure. I identified the fracture sites of the ninth and 10th rib. I dissected down to the bone surface and removed the periosteum. I used [employer] Intr[employer]or[employer]vantage [employer]plant System. I drilled anterior and posterior to the fracture site on both ninth and 10th rib with intra thoracic visual guidance. I used 2 long advantage bridge with locking cap to plate these 2 ribs. Both the ribs are much more stable after plating. I am happy with the results. I copiously irrigated the chest and the posterior incision. I ensured hemostasis. I left topical hemostatic agent on the posterior incision. I left one chest tubes to further drain the pleural space. It was secured to the skin with 0 Ethibon sutures. The incisions were closed with 2-0 Vicryl and then 3-0 monocryl at the skin. Patient was then woken up from anesthesia and brought to recovery room in stable condition. I was present for the entire duration of the procedure. Isaac Cox MD Thoracic Surgeon [facility] Assistant Spa Directornew product trainer [facility] Office phone: Pager: [phone] The patient's goals for the shift include The clinical goals for the shift include patient pain rating will be <4/10 by 29904/08/23 Over the shift, the patient did not make progress toward the following goals. Barriers to progression include Pts perception of pain. Recommendations to address these barriers include continue to administer prn pain meds per order. Problem: Pain Goal: Takes deep breaths with improved pain control throughout the shift Outcome: Not Progressing Goal: Turns in bed with improved pain control throughout the shift Outcome: Not Progressing Goal: Walks with improved pain control throughout the shift Outcome: Not Progressing Goal: Performs ADL's with improved pain control throughout shift Outcome: Not Progressing Goal: Free from opioid side effects throughout the shift Outcome: Not Progressing The patient's goals for the shift include The clinical goals for the shift include patient pain rating will be <4/10 by 29904/08/23 Problem: Pain Goal: Takes deep breaths with improved pain control throughout the shift Outcome: Progressing Goal: Turns in bed with improved pain control throughout the shift Outcome: Progressing Goal: Walks with improved pain control throughout the shift Outcome: Progressing Goal: Performs ADL's with improved pain control throughout shift Outcome: Progressing Goal: Free from opioid side effects throughout the shift Outcome: Progressing Problem: Discharge Planning Goal: Discharge to home or other facility with appropriate resources Outcome: Progressing Problem: Skin Goal: Participates in plan/prevention/treatment measures Outcome: Progressing Flowsheets (Taken 04/08/2023327) Participates in plan/prevention/treatment measures: Increase activity/out of bed for meals Goal: Promote/optimize nutrition Outcome: Progressing Flowsheets (Taken 04/08/2023327) Promote/optimize nutrition: Consume > 50% meals/supplements The patient's goals for the shift include The clinical goals for the shift include patient will remain free from injury this shift. Problem: Pain Goal: Takes deep breaths with improved pain control throughout the shift Outcome: Progressing Goal: Turns in bed with improved pain control throughout the shift Outcome: Progressing Goal: Walks with improved pain control throughout the shift Outcome: Progressing The patient's goals for the shift include The clinical goals for the shift include patient will remain free from injury this shift. Over the shift, the patient did not make progress toward the following goals. Barriers to progression include ETOH withdrawal/management. Recommendations to address these barriers include medication management, encourage activity/participation in ADLs. Problem: Pain Goal: Takes deep breaths with improved pain control throughout the shift Outcome: Progressing Goal: Turns in bed with improved pain control throughout the shift Outcome: Progressing Goal: Free from opioid side effects throughout the shift Outcome: Progressing Problem: Discharge Planning Goal: Discharge to home or other facility with appropriate resources Outcome: Progressing Problem: Skin Goal: Participates in plan/prevention/treatment measures 04/06/2023 1720 by Alena Conn, RAJ Outcome: Progressing 04/06/2023 1130 by Alena Conn, RAJ Outcome: Progressing Goal: Promote/optimize nutrition 04/06/2023 1720 by Alena Conn RN Outcome: Progressing 04/06/2023 1130 by Alena Conn RN Outcome: Progressing Problem: Safety - Adult Goal: Free from fall injury 04/06/2023 1720 by Alena Conn RN Outcome: Met 04/06/2023 1129 by Alena Conn RN Outcome: Progressing Problem: Skin Goal: Decreased wound size/increased tissue granulation at next dressing change 04/06/2023 1720 by Alena Conn RN Outcome: Met 04/06/2023 1130 by Alena Conn RN Outcome: Progressing Goal: Prevent/manage excess moisture 04/06/2023 1720 by Alena Conn RN Outcome: Met 04/06/2023 1338 by Alena Conn RN Flowsheets (Taken 04/06/2023 1338) Prevent/manage excess moisture: Cleanse incontinence/protect with barrier cream 04/06/2023 1130 by Alena Conn RN Outcome: Progressing Goal: Prevent/minimize sheer/friction injuries 04/06/2023 1720 by Alena Conn RN Outcome: Met 04/06/2023 1130 by Alena Conn RN Outcome: Progressing Goal: Promote skin healing 04/06/2023 1720 by Alena Conn RN Outcome: Met 04/06/2023 1130 by Alena Conn RN Outcome: Progressing Problem: Fall/Injury Goal: Not fall by end of shift Outcome: Met Goal: Be free from injury by end of the shift Outcome: Met Goal: Verbalize understanding of personal risk factors for fall in the hospital Outcome: Met Goal: Verbalize understanding of risk factor reduction measures to prevent injury from fall in the home Outcome: Met Goal: Use assistive devices by end of the shift Outcome: Met Goal: Pace activities to prevent fatigue by end of the shift Outcome: Met Problem: Pain Goal: Walks with improved pain control throughout the shift Outcome: Not Progressing Goal: Performs ADL's with improved pain control throughout shift Outcome: Not Progressing The patient's goals for the shift include The clinical goals for the shift include maintain pain at tolerable level Over the shift, the patient did not make progress toward the following goals. Barriers to progression include . Recommendations to address these barriers include . Problem: Pain Goal: Takes deep breaths with improved pain control throughout the shift Outcome: Progressing Goal: Turns in bed with improved pain control throughout the shift Outcome: Progressing Goal: Walks with improved pain control throughout the shift Outcome: Progressing Goal: Performs ADL's with improved pain control throughout shift Outcome: Progressing Goal: Free from opioid side effects throughout the shift Outcome: Progressing The patient's goals for the shift include The clinical goals for the shift include maintain pain at tolerable level Associated Order(s): ECG 12 lead Procedure ECG 12 lead Performed by: Laurie Castellanos PA-C Authorized by: Thanh Magallanes MD Interpretation: Details: My EKG interpretation Rate: ECG rate: 73 ECG rate assessment: normal Rhythm: Rhythm: sinus rhythm ST segments: ST segments: Normal Laurie Castellanos PA-C 04/08/23 0350 documented in this encounter [facility] Work Phone: 04-10-2023 Nurse Note Patient transferred to [facility]. [facility] 04-10-2023 Nurse Note Patient transferred to 821. Shift assessment completed by gerardo Szymanski nurse. Reviewed and co-signed by this RN. Patient off the floor via bed with transport to pre op at this time. At 0015: This RN was working on computer in room, patient pushed this RN into computer while running out of the room. Patient unsteady with legs wobbling, attempting to run away from this RN. Patient shoving and pulling away from this RN while holding patient up from falling. This RN yelled for assistance, 2 other staff members assisted getting patient back to bed. Patient educated that no longer can refuse bed alarm. Pt states I get panic attacks and I do not like strangers, I'll sleep on the floor before I sleep in here. Eye mask and ear plugs given to patient. Patient adjusted in bed for comfort. In to reassess patient at this time, audible snores noted. At 0110: Patient attempted to get out of bed and run into hallway. Another RN assisted patient back to bed, bed alarm remains on. Patient educated importance of staying in bed due to being unsteady and the dangers it puts patient and staff members in. Patient states I just want to go to sleep in the hallway. I can't sleep in here. documented in this encounter [facility] Work Phone: 04-10-2023 Plan of care note The patient's goals for the shift include remaining safe and performing respiratory interventions such as cough/deep breathing and incentive spirometry. The clinical goals for the shift include Patient will report a pain level of 5 or less by the end of the shift. Over the shift, the patient did not make progress toward the following goals. Barriers to progression include pain and fatigue. Recommendations to address these barriers include frequent education and encouragement throughout the shift. [facility] Work Phone: 04-10-2023 Consult note Formatting of th is note is different from the original. Images from the original note were not included. [facility] Critical Care Medicine Date: 04/10/2023 Patient: Ford Phelan Date of : 1975 Admit Date: 04/04/2023 Chief Complaint Patient presents with Fall Pt slipped getting out of the shower and fell forward, hit left side of body on the bath tub. History of Present Illness: Ford Phelan is a 47 y.o. year old male patient with Past Medical History of hypertension, vit b12 deficiency, alcohol abuse, daily smoker. Patient has a history of alcohol abuse and has been admitted at [facility] in the past for alcoholic pancreatitis as well as alcohol withdrawal. Patient arrived to [facility] emergency department 04/04 with complaints of mechanical fall at home while getting out of the shower. He had his left side on the edge of the bathtub. He denies hitting his head or losing consciousness. In the emergency department he was afebrile, stable vital signs, oxygen saturations low 90s on room air, pain with inspiration. Full trauma work-up was done which demonstrated fractures of the left ninth through 12th ribs. Alcohol level 204. Patient was admitted to the ICU with trauma consult for pain management and aggressive pulmonary hygiene. He was transferred from the ICU service on 04/07 and then consulted on 04/09 for observation post VATS procedure. Interval ICU Events: 04/09: Consulted today post left VATS procedure with evacuation of hemothorax and plating of left 9th and 10th rib. Patient states pain has been reduced significantly and laying in bed comfortably. Denies nausea, vomiting, and pain. 04/10: COMPENSATOR was restarted for severe pain overnight. Today patient is tolerating pain and using pulmonary hygiene devices. He was able to work with physical therapy and took a walk around the unit. COMPENSATOR pump was discontinued restarting pain medications as needed. Medical History: Past Medical History: Diagnosis Date High blood pressure No past surgical history on file. Medications Prior to Admission Medication Sig Dispense Refill Last Dose albuterol 90 mcg/actuation aerosol powdr breath activated inhaler Inhale 2 puffs every 4 hours if needed for wheezing. Unknown clonazePAM (KlonoPIN) 0.5 mg tablet Take 0.5 tablets (0.25 mg) by mouth 2 times a day as needed for anxiety. Unknown hydroCHLOROthiazide (HYDRODiuril) 12.5 mg tablet Take 1 tablet (12.5 mg) by mouth once daily. 04/02/2023 lisinopril 20 mg tablet Take 1 tablet (20 mg) by mouth once daily. 04/02/2023 sertraline (Zoloft) 100 mg tablet Take 1 tablet (100 mg) by mouth once daily. 04/02/2023 thiamine 100 mg tablet Take 1 tablet (100 mg) by mouth once daily. 04/02/2023 Bupropion Social History Tobacco Use Smoking status: Every Day Packs/day: 1 Types: Cigarettes Start date: 1997 Smokeless tobacco: Never Vaping Use Vaping Use: Every day Substance Use Topics Alcohol use: Yes Alcohol/week: 2.0 standard drinks of alcohol Types: 2 Standard drinks or equivalent per week Drug use: Never No family history on file. Hospital Medications: Current Facility-Administered Medications: acetaminophen (Tylenol) tablet 975 mg, 975 mg, oral, q8h, Jorge Almodovar PA-C, 975 mg at 04/10/23 0811 albuterol 90 mcg/actuation inhaler 2 puff, 2 puff, inhalation, q4h PRN, Jorge Almodovar PA-C docusate sodium (Colace) capsule 100 mg, 100 mg, oral, BID, Bora Barney APRN-PIT MANAGER, 100 mg at 04/10/23 1058 folic acid (Folvite) tablet 1 mg, 1 mg, oral, Daily, Jorge Almodovar PA-C, 1 mg at 04/10/23 0811 guaiFENesin (Mucinex) 12 hr tablet 600 mg, 600 mg, oral, BID PRN, Jorge Almodovar PA-C, 600 mg at 04/07/23 2014 guaiFENesin (Mucinex) 12 hr tablet 600 mg, 600 mg, oral, BID, Katia De La Rosa ROUTE RETURNER-PIT MANAGER, 600 mg at 04/10/23 0810 heparin (porcine) injection 5,000 Units, 5,000 Units, subcutaneous, q8h, Taj Enciso ROUTE RETURNER-PIT MANAGER, 5,000 Units at 04/10/23 1058 hydroCHLOROthiazide (HYDRODiuril) tablet 12.5 mg, 12.5 mg, oral, Daily, Jorge Almodovar, PA-C, 12.5 mg at 04/10/23 0811 ketorolac (Toradol) injection 15 mg, 15 mg, intravenous, q6h, Bora Barney, ROUTE RETURNER-PIT MANAGER, 15 mg at 04/10/23 1111 lidocaine 4 % patch 1 patch, 1 patch, transdermal, Daily, Jorge Almodovar, PA-C, 1 patch at 04/10/23 0809 lisinopril tablet 20 mg, 20 mg, oral, Daily, Jorge Almodovar, PA-C, 20 mg at 04/10/23 0811 magnesium oxide (Mag-Ox) tablet 800 mg, 800 mg, oral, Daily, Jorge Almodovar, PA-C, 800 mg at 04/10/23 0810 melatonin tablet 6 mg, 6 mg, oral, Nightly, Jorge Almodovar, PA-C, 6 mg at 04/09/23 2133 multivitamin with minerals 1 tablet, 1 tablet, oral, Daily, Jorge Almodovar, PA-C, 1 tablet at 04/10/23 0812 naloxone (Narcan) injection 0.2 mg, 0.2 mg, intravenous, PRN, Praneeth Anderson, ROUTE RETURNER-PIT MANAGER nicotine (Nicoderm CQ) 21 mg/24 hr patch 1 patch, 1 patch, transdermal, Daily, 1 patch at 04/10/23 0809 FOLLOWED BY [START ON 05/21/2023] nicotine (Nicoderm CQ) 14 mg/24 hr patch 1 patch, 1 patch, transdermal, Daily FOLLOWED BY [START ON 06/04/2023] nicotine (Nicoderm CQ) 7 mg/24 hr patch 1 patch, 1 patch, transdermal, Daily, Jorge Almodovar, PA-C ondansetron ODT (Zofran-ODT) disintegrating tablet 4 mg, 4 mg, oral, q8h PRN OR ondansetron (Zofran) injection 4 mg, 4 mg, intravenous, q8h PRN, Jorge Almodovar, PA-C, 4 mg at 04/09/23 0921 oxyCODONE (Roxicodone) immediate release tablet 10 mg, 10 mg, oral, q4h PRN, FRANKIE Lamas oxyCODONE (Roxicodone) immediate release tablet 5 mg, 5 mg, oral, q4h PRN, FRANKIE Lamas oxygen (O2) therapy, , inhalation, Continuous PRN - O2/gases, Jorge Almodovar PA-C, 2 L/min at 04/10/23 0400 oxygen (O2) therapy, , inhalation, Continuous PRN - O2/gases, FRANKIE Lamas [START ON 04/11/2023] pantoprazole (ProtoNix) EC tablet 40 mg, 40 mg, oral, Daily before breakfast, FRANKIE Almanza [COMPLETED] PHENobarbitaL (Luminal) tablet 97.2 mg, 97.2 mg, oral, TID, 97.2 mg at 04/06/232119 FOLLOWED BY [COMPLETED] PHENobarbitaL (Luminal) tablet 64.8 mg, 64.8 mg, oral, TID, 64.8 mg at 04/08/232004 FOLLOWED BY PHENobarbitaL (Luminal) tablet 32.4 mg, 32.4 mg, oral, TID, Jorge Almodovar PA-C, 32.4 mg at 04/10/23 0810 polyethylene glycol (Glycolax, Miralax) packet 17 g, 17 g, oral, Daily, FRANKIE Lamas, 17 g at 04/10/23 0820 sertraline (Zoloft) tablet 100 mg, 100 mg, oral, Daily, Jorge Almodovar PA-C, 100 mg at 04/10/23 0810 thiamine (Vitamin B-1) tablet 100 mg, 100 mg, oral, Daily, RAGINI Bryan-C, 100 mg at 04/10/23 0811 Physical Exam: Heart Rate: [62-94] Temp: [36 C (96.8 F)-37.1 C (98.7 F)] Resp: [17-25] BP: (106-141)/(67-94) Height: [184 cm (6' 0.44)] Weight: [81.1 kg (178 lb 12.7 oz)] SpO2: [92 %-99 %] Physical Exam Constitutional: Appearance: Normal appearance. He is not ill-appearing or toxic-appearing. HENT: Head: Normocephalic and atraumatic. Nose: Nose normal. No congestion or rhinorrhea. Mouth/Throat: Mouth: Mucous membranes are moist. Pharynx: Oropharynx is clear. No oropharyngeal exudate. Eyes: General: No scleral icterus. Extraocular Movements: Extraocular movements intact. Conjunctiva/sclera: Conjunctivae normal. Pupils: Pupils are equal, round, and reactive to light. Cardiovascular: Rate and Rhythm: Regular rhythm. Tachycardia present. Pulses: Normal pulses. Heart sounds: Normal heart sounds. No murmur heard. Pulmonary: Effort: Pulmonary effort is normal. No respiratory distress. Breath sounds: Wheezing present. Chest: Chest wall: Tenderness present. Abdominal: General: Abdomen is flat. Bowel sounds are normal. There is no distension. Palpations: Abdomen is soft. Tenderness: There is no abdominal tenderness. There is no guarding. Musculoskeletal: Cervical back: Normal range of motion. Skin: General: Skin is warm and dry. Capillary Refill: Capillary refill takes less than 2 seconds. Coloration: Skin is not jaundiced. Findings: Erythema present. Neurological: General: No focal deficit present. Mental Status: He is alert and oriented to person, place, and time. Mental status is at baseline. Cranial Nerves: No cranial nerve deficit. Gait: Gait normal. Objective: Intake/Output Summary (Last 24 hours) at 04/10/2023 1129 Last data filed at 04/10/2023 0800 Gross per 24 hour Intake 1350 ml Output 1385 ml Net -35 ml Results for orders placed or performed during the hospital encounter of 04/04/23 (from the past 24 hour(s)) CBC Result Value Ref Range WBC 8.1 4.4 - 11.3 x10*3/uL nRBC 0.0 0.0 - 0.0 /100 WBCs RBC 3.53 (L) 4.50 - 5.90 x10*6/uL Hemoglobin 13.3 (L) 13.5 - 17.5 g/dL Hematocrit 37.8 (L) 41.0 - 52.0 % MCV 107 (H) 80 - 100 fL MCH 37.7 (H) 26.0 - 34.0 pg MCHC 35.2 32.0 - 36.0 g/dL RDW 13.1 11.5 - 14.5 % Platelets 148 (L) 150 - 450 x10*3/uL Basic metabolic panel Result Value Ref Range Glucose 113 (H) 74 - 99 mg/dL Sodium 132 (L) 136 - 145 mmol/L Potassium 3.5 3.5 - 5.3 mmol/L Chloride 99 98 - 107 mmol/L Bicarbonate 27 21 - 32 mmol/L Anion Gap 10 10 - 20 mmol/L Urea Nitrogen 9 6 - 23 mg/dL Creatinine 0.54 0.50 - 1.30 mg/dL eGFR >90 >60 mL/min/1.73m*2 Calcium 8.1 (L) 8.6 - 10.3 mg/dL Magnesium Result Value Ref Range Magnesium 1.73 1.60 - 2.40 mg/dL Recent Imaging XR chest 1 view Final Result Mild atelectasis/infiltrates in the left base. No sizable pneumothorax. Left chest tube remains in place. MACRO: None. Signed by: Miguel A Chin 04/10/2023 9:14 AM Dictation workstation: [id number] XR chest 1 view Final Result Left chest tube in place. No visible pneumothorax. Streaky bibasilar opacities suggesting atelectasis. Signed by: Ivette Andrade 04/09/2023 6:37 PM Dictation workstation: [id number] XR chest 1 view Final Result 1. Left apical chest tube in place. No pneumothorax. 2. Chronic healed left posterior 5th, 6th, 7th rib fractures with cortical deformities. 3. Additional previously described fractures of the left posterior and posterolateral 9th through 12th ribs are better evaluated on the previous CT chest study. MACRO: None. Signed by: Brittney Holder 04/09/2023 11:49 AM Dictation workstation: [id number] XR chest 1 view Final Result Increased opacity at the left base. Multiple left-sided rib fractures. MACRO: none Signed by: Ronel Basurto 04/08/2023 11:32 AM Dictation workstation: [id number] XR chest 1 view Final Result 1. Combination of multiple left nonacute nonacute rib fracture deformities again partially visualized. 2. Left basilar opacification most confluent in the retrocardiac region again seen and may be due to a combination of atelectasis and or infiltrates. 3. No appreciable pneumothorax. MACRO: None. Signed by: Silvia Sood 04/07/2023 11:25 AM Dictation workstation: [id number] XR chest 1 view Final Result 1. Partial visualization of multiple left-sided rib deformities representing a combination of nonacute and acute fractures as better seen and described on recent chest CT. No appreciable pneumothorax. 2. Increased opacification of the left base may be due to a combination of consolidation, volume loss and possible small volume pleural effusion. MACRO: None. Signed by: Silvia Sood 04/07/2023 11:27 AM Dictation workstation: [id number] XR chest 1 view Final Result 1. No acute cardiopulmonary process. 2. Redemonstration of acute left posterolateral 9th through 12th rib fractures that are better evaluated on the previous CT chest study. More remote fractures of left posterior 5th through 7th ribs noted as well. MACRO: None. Signed by: Brittney Holder 04/05/2023 9:10 AM Dictation workstation: [id number] CT thoracic spine wo IV contrast Final Result Nondisplaced fractures of the posterior 12th, 11th, 10th rib. Ribs are incompletely visualized with this field of view. Trace left pleural effusion or hemothorax. No sign of thoracic vertebral body fracture or malalignment. No CT evidence of central canal stenosis. Signed by: Antoine Veloz 04/04/2023 7:41 AM Dictation workstation: [id number] CT lumbar spine wo IV contrast Final Result Nondisplaced fractures of the left 11th and 12th rib posteriorly. Severe discogenic degenerative changes of the lumbosacral junction. There is bulging disc and right paracentral disc extrusion. Disc material may contact the right S1 nerve root and should be correlated with any clinical findings of radiculopathy. There is mild central canal narrowing at this level and [id number] bilateral neural foraminal narrowing. Signed by: Antoine Veloz 04/04/2023 7:37 AM Dictation workstation: [id number] CT chest abdomen pelvis w IV contrast Final Result Fractures of the posterior and posterolateral left 12th, 11th, 10th, and 9th rib. Trace left hemothorax. There is no sizable pneumothorax. Severe fatty metamorphosis of the liver. Severe discogenic degenerative changes at the lumbosacral junction, described in detail on the CT lumbar spine examination of the same day. The remainder of the chest, abdomen, and pelvis is unremarkable. There is no evidence solid or hollow visceral injury. Signed by: Antoine Veloz 04/04/2023 7:48 AM Dictation workstation: [id number] CT head wo IV contrast Final Result No CT evidence of acute intracranial hemorrhage or mass effect. Mucoperiosteal thickening of the ethmoid air cells. Signed by: Antoine Veloz 04/04/2023 7:21 AM Dictation workstation: [id number] CT cervical spine wo IV contrast Final Result Wlmf-rj-mdluvcpb lower cervical spondylosis as described above. Mild multilevel bulging disc without significant central canal narrowing. Mild and moderate multilevel neural foraminal narrowing as described above. No sign of acute fracture or subluxation. Signed by: Antoine Veloz 04/04/2023 7:24 AM Dictation workstation: [id number] XR chest 1 view Final Result No radiographic evidence of acute cardiopulmonary pathology. MACRO: None. Signed by: Sadi Figueroa 04/04/2023 4:56 AM Dictation workstation: [id number] XR chest 1 view (Results Pending) No echocardiogram results found for the past 14 days Assessment/Plan: Consulted for a 47 year old male for observation post left sided VATS procedure with evacuation of hemothorax and plating of ribs 9 and 10. He had a fall in the shower and was brought to the ICU on 04/04 where he was treated for EtOH withdrawals and then transferred to the floor for further management. Patient underwent his VATS procedure with an intercostal nerve block. He was in severe pain over night and still in moderate pain currently. I am currently managing this critically ill patient for: Post VATS with evacuation of hemothorax and plating of ribs 9 and 10 Acute posttraumatic pain History of alcohol use disorder Daily Plan: Neuro/Psych/Pain Ctrl/Sedation: Discontinue COMPENSATOR pump return to scheduled and PRN medications Multimodal pain control: Scheduled Toradol, Tylenol, Robaxin, Lidoderm patch. PRN Dilaudid 0.5mg q2h, oxycodone 10 mg q4h Continue home Zoloft Phenobarbital taper for alcohol withdrawal Thiamine/folate Continue CIWA, currently day 6 Respiratory/ENT: Chest XR showed no pneumothorax or hemothorax post procedure, Chest tube removed, Subcutaneous emphysema present Continue supplemental oxygen, currently on 2L nasal cannula, wean as able Continue incentive spirometry and pulmonary hygiene DuoNebs as needed Nicotine patch ordered Cardiovascular: Maintain MAP greater than 65, not currently on any vasoactive agents Continue home hydrochlorothiazide/lisinopril GI: Started regular diet Renal/Volume Status (Intra & Extravascular): Urine output/electrolytes acceptable, no need for TRUSS ASSEMBLER BMP in morning Endocrine Maintain euglycemia, no insulin needed Infectious Disease: No systemic infectious concerns Given Ancef pre-procedure Heme/Onc: Transfuse for symptomatic anemia, no current indication MSK: Trauma following, PT/OT DVT Prophylaxis: Heparin GI Prophylaxis: not indicated Bowel Regimen: Senna + Miralax Diet: Regular CVC: None [place]: None Spear: None Restraints: None Code Status: Full Dispo: Transfer ready I personally examined the patient, reviewed all lab results, and imaging studies. Critical care team is signing off on this patient as he no longer requires critical care services currently. If patient's condition does change feel free to reconsult us. Plan discussed with Dr. Juares Critical Care Time: 30 minutes Critical Care Kimani Almodovar PA-C [facility] Work Phone: 04-10-2023 Nurse Note Shift assessment completed by Nessa student nurse. Reviewed and co-signed by this RN. [facility] Work Phone: 04-09-2023 Note Formatting of this n ote might be different from the original. [facility] SIGNIFICANT EVENT NOTE: Date: 04/09/2023 Patient: Ford Phelan Date of : 1975 Admit Date: 04/04/2023 I was called to bedside by nursing at 17:30 Concerns: Moderate to severe pain with tachycardia and hypertension. I was asked to come see the patient because he woke up in pain in a lateral decubitus position with knees flexed. The nurse Zeus Cai notified me about this and that the patient lung sounded worse. Upon arrival the patient was screaming and rated the pain a 10/10. Patient denies palpitation, tunnel visioning, and shortness of breath. Exam: General: Patient positioned right lateral decubitus with knees flexed and moaning, afebrile, Neuro: Alert & oriented x3 HEENT: PERRLA, EOMI Pulm: Significant wheezes in left lower lobe, No accessory muscle use or signs of respiratory distress Cardio: S1 and S2 crisp without murmurs and gallops, tachycardia GI: Soft, non tender MSK: +2 pulses, Full range of motion XR chest 1 view 04/09/2023 Narrative Interpreted By: Ivette Andrade, STUDY: XR CHEST 1 VIEW; 04/09/2023 5:44 pm INDICATION: Signs/Symptoms:New onset SOB post procedure. COMPARISON: 04/09/2023 ACCESSION NUMBER(S): [id number] ORDERING CLINICIAN: JORGE ALMODOVAR FINDINGS: Left-sided chest tube present. No visible pneumothorax. Left chest wall subcutaneous emphysema. Streaky bibasilar opacities suggestive of atelectasis. Normal heart size. No large pleural effusion. Impression Left chest tube in place. No visible pneumothorax. Streaky bibasilar opacities suggesting atelectasis. Signed by: Ivette Andrade 04/09/2023 6:37 PM Dictation workstation: [id number] Action Plan: Chest XR Streaky bibasilar opacities suggesting atelectasis. Ketamine 25 mg IV once given by Praneeth Anderson CNP Continue scheduled and PRN analgesic medications Acapella Order to clear secretions when pain is controlled Attending Physician Notified: Dr. Juares was notified and inpatient surgeon Dr. Levy was notified and evaluated patient at bedside. I spent 30 minutes of critical care time to personally assess the patient, and reviewing history, labs, and imaging. Critical Care Kimani Almodovar PA-C [facility] Work Phone: 04-09-2023 Note Formatting of this n ote might be different from the original. I was the surgical first assistant to Dr. Cox for Ford Phelan's procedure on 04/09/23. Procedure: Left VATS open reduction intrathoracic plating of left 9th and 10th Left VATS evacuation of hemothorax Intercostal nerve block Karlene Adams PA-C [facility] Work Phone: 04-09-2023 Plan of care note The patient's goals for the shift include The clinical goals for the shift include pain control Over the shift, the patient did make progress toward the following goals. Recommendations to address these barriers include deep breathing and repositioning. [facility] 04-09-2023 Consult note Formatting of th is note is different from the original. [facility] Critical Care Medicine Date: 04/09/2023 Patient: Ford Phelan Date of : 1975 Admit Date: 04/04/2023 Chief Complaint Patient presents with Fall Pt slipped getting out of the shower and fell forward, hit left side of body on the bath tub. History of Present Illness: Ford Phelan is a 47 y.o. year old male patient with Past Medical History of hypertension, vit b12 deficiency, alcohol abuse, daily smoker. Patient has a history of alcohol abuse and has been admitted at [facility] in the past for alcoholic pancreatitis as well as alcohol withdrawal. Patient arrived to [facility] emergency department 04/04 with complaints of mechanical fall at home while getting out of the shower. He had his left side on the edge of the bathtub. He denies hitting his head or losing consciousness. In the emergency department he was afebrile, stable vital signs, oxygen saturations low 90s on room air, pain with inspiration. Full trauma work-up was done which demonstrated fractures of the left ninth through 12th ribs. Alcohol level 204. Patient was admitted to the ICU with trauma consult for pain management and aggressive pulmonary hygiene. He was transferred from the ICU service on 04/07 and then consulted on 04/09 for observation post VATS procedure. Interval ICU Events: 04/09: Consulted today post left VATS procedure with evacuation of hemothorax and plating of left 9th and 10th rib. Patient states pain has been reduced significantly and laying in bed comfortably. Denies nausea, vomiting, and pain. Medical History: Past Medical History: Diagnosis Date High blood pressure No past surgical history on file. Medications Prior to Admission Medication Sig Dispense Refill Last Dose albuterol 90 mcg/actuation aerosol powdr breath activated inhaler Inhale 2 puffs every 4 hours if needed for wheezing. Unknown clonazePAM (KlonoPIN) 0.5 mg tablet Take 0.5 tablets (0.25 mg) by mouth 2 times a day as needed for anxiety. Unknown hydroCHLOROthiazide (HYDRODiuril) 12.5 mg tablet Take 1 tablet (12.5 mg) by mouth once daily. 04/02/2023 lisinopril 20 mg tablet Take 1 tablet (20 mg) by mouth once daily. 04/02/2023 sertraline (Zoloft) 100 mg tablet Take 1 tablet (100 mg) by mouth once daily. 04/02/2023 thiamine 100 mg tablet Take 1 tablet (100 mg) by mouth once daily. 04/02/2023 Bupropion Social History Tobacco Use Smoking status: Every Day Packs/day: 1 Types: Cigarettes Start date: 1997 Smokeless tobacco: Never Vaping Use Vaping Use: Every day Substance Use Topics Alcohol use: Yes Alcohol/week: 2.0 standard drinks of alcohol Types: 2 Standard drinks or equivalent per week Drug use: Never No family history on file. Hospital Medications: lactated Ringer's, 100 mL/hr Current Facility-Administered Medications: acetaminophen (Tylenol) tablet 975 mg, 975 mg, oral, q8h, Jorge Almodovar PA-C, 975 mg at 04/08/23 1750 albuterol 90 mcg/actuation inhaler 2 puff, 2 puff, inhalation, q4h PRN, Jorge Almodovar, PA-C [Held by provider] enoxaparin (Lovenox) syringe 30 mg, 30 mg, subcutaneous, q12h, Jorge Almodovar, PA-C, 30 mg at 04/08/23922 folic acid (Folvite) tablet 1 mg, 1 mg, oral, Daily, Jorge Almodovar, PA-C, 1 mg at 04/08/23921 guaiFENesin (Mucinex) 12 hr tablet 600 mg, 600 mg, oral, BID PRN, Jorge Almodovar, PA-C, 600 mg at 04/07/232013 heparin (porcine) injection 5,000 Units, 5,000 Units, subcutaneous, q8h, FRANKIE Lamas hydroCHLOROthiazide (HYDRODiuril) tablet 12.5 mg, 12.5 mg, oral, Daily, Jorge Almodovar, PA-C, 12.5 mg at 04/08/23921 HYDROmorphone (Dilaudid) injection 0.5 mg, 0.5 mg, intravenous, q2h PRN, FRANKIE Lamas ketorolac (Toradol) injection 15 mg, 15 mg, intravenous, q6h, Jorge Almodovar, PA-C, 15 mg at 04/09/23 0215 lactated Ringer's infusion, 100 mL/hr, intravenous, Continuous, Jorge Montalvoel, PA-C lidocaine 4 % patch 1 patch, 1 patch, transdermal, Daily, Jorge Almodovar, PA-C, 1 patch at 04/08/23921 lisinopril tablet 20 mg, 20 mg, oral, Daily, Jorge Almodovar, PA-C, 20 mg at 04/08/23921 magnesium oxide (Mag-Ox) tablet 800 mg, 800 mg, oral, Daily, Jorge Almodovar, PA-C, 800 mg at 04/08/23922 melatonin tablet 6 mg, 6 mg, oral, Nightly, Jorge Almodovar, PA-C, 6 mg at 04/08/232004 methocarbamol (Robaxin) tablet 1,000 mg, 1,000 mg, oral, q8h KORIN, Jorge Almodovar PA-C, 1,000 mg at 04/08/232120 multivitamin with minerals 1 tablet, 1 tablet, oral, Daily, Jorge Almodovar PA-C, 1 tablet at 04/08/23 0922 naloxone (Narcan) injection 0.2 mg, 0.2 mg, intravenous, q5 min PRN, FRANKIE Lamas nicotine (Nicoderm CQ) 21 mg/24 hr patch 1 patch, 1 patch, transdermal, Daily FOLLOWED BY [START ON 05/21/2023] nicotine (Nicoderm CQ) 14 mg/24 hr patch 1 patch, 1 patch, transdermal, Daily FOLLOWED BY [START ON 06/04/2023] nicotine (Nicoderm CQ) 7 mg/24 hr patch 1 patch, 1 patch, transdermal, Daily, Jorge Almodovar PA-C ondansetron ODT (Zofran-ODT) disintegrating tablet 4 mg, 4 mg, oral, q8h PRN OR ondansetron (Zofran) injection 4 mg, 4 mg, intravenous, q8h PRN, Jorge Almodovar PA-C, 4 mg at 04/09/23 0921 oxyCODONE (Roxicodone) immediate release tablet 10 mg, 10 mg, oral, q4h PRN, Jorge Almodovar PA-C, 10 mg at 04/08/23 2245 oxyCODONE (Roxicodone) immediate release tablet 10 mg, 10 mg, oral, q4h PRN, FRANKIE Lamas oxyCODONE (Roxicodone) immediate release tablet 5 mg, 5 mg, oral, q4h PRN, FRANKIE Lamas oxygen (O2) therapy, , inhalation, Continuous PRN - O2/gases, Jorge Almodovar PA-C, 2 L/min at 04/09/23 0950 oxygen (O2) therapy, , inhalation, Continuous PRN - O2/gases, FRANKIE Lamas [COMPLETED] PHENobarbitaL (Luminal) tablet 97.2 mg, 97.2 mg, oral, TID, 97.2 mg at 04/06/232119 FOLLOWED BY [COMPLETED] PHENobarbitaL (Luminal) tablet 64.8 mg, 64.8 mg, oral, TID, 64.8 mg at 04/08/232004 FOLLOWED BY PHENobarbitaL (Luminal) tablet 32.4 mg, 32.4 mg, oral, TID, Jorge Almodovar, PA-C polyethylene glycol (Glycolax, Miralax) packet 17 g, 17 g, oral, Daily, Taj Enciso APRN-AMANDA sertraline (Zoloft) tablet 100 mg, 100 mg, oral, Daily, Jorge Almodovar, PA-C, 100 mg at 04/08/23922 thiamine (Vitamin B-1) tablet 100 mg, 100 mg, oral, Daily, Jorge Almodovar, PA-C, 100 mg at 04/08/23922 Physical Exam: Heart Rate: [61-94] Temp: [36.1 C (97 F)-37.1 C (98.8 F)] Resp: [9-20] BP: (116-162)/(71-94) Height: [184 cm (6' 0.44)] Weight: [81.1 kg (178 lb 12.7 oz)] SpO2: [92 %-100 %] Physical Exam Constitutional: General: He is not in acute distress. Appearance: Normal appearance. HENT: Head: Normocephalic and atraumatic. Nose: Nose normal. No rhinorrhea. Mouth/Throat: Mouth: Mucous membranes are moist. Pharynx: Oropharynx is clear. No oropharyngeal exudate or posterior oropharyngeal erythema. Eyes: General: No scleral icterus. Extraocular Movements: Extraocular movements intact. Conjunctiva/sclera: Conjunctivae normal. Pupils: Pupils are equal, round, and reactive to light. Cardiovascular: Rate and Rhythm: Normal rate and regular rhythm. Pulses: Normal pulses. Heart sounds: Normal heart sounds. No murmur heard. Pulmonary: Effort: Pulmonary effort is normal. No respiratory distress. Breath sounds: No stridor. Wheezing present. Chest: Comments: Chest tube in left 4th intercostal space anterior axillary line Abdominal: General: Abdomen is flat. Bowel sounds are normal. There is no distension. Palpations: Abdomen is soft. Musculoskeletal: General: Normal range of motion. Cervical back: Normal range of motion and neck supple. Skin: General: Skin is warm. Capillary Refill: Capillary refill takes less than 2 seconds. Coloration: Skin is not pale. Neurological: General: No focal deficit present. Mental Status: He is alert and oriented to person, place, and time. Mental status is at baseline. Cranial Nerves: No cranial nerve deficit. Objective: Intake/Output Summary (Last 24 hours) at 04/09/2023 1210 Last data filed at 04/09/2023 0944 Gross per 24 hour Intake 700 ml Output 900 ml Net -200 ml Results for orders placed or performed during the hospital encounter of 04/04/23 (from the past 24 hour(s)) SST TOP Result Value Ref Range Extra Tube Hold for add-ons. Basic Metabolic Panel Result Value Ref Range Glucose 89 74 - 99 mg/dL Sodium 132 (L) 136 - 145 mmol/L Potassium 3.8 3.5 - 5.3 mmol/L Chloride 98 98 - 107 mmol/L Bicarbonate 28 21 - 32 mmol/L Anion Gap 10 10 - 20 mmol/L Urea Nitrogen 11 6 - 23 mg/dL Creatinine 0.60 0.50 - 1.30 mg/dL eGFR >90 >60 mL/min/1.73m*2 Calcium 8.6 8.6 - 10.3 mg/dL CBC Result Value Ref Range WBC 6.5 4.4 - 11.3 x10*3/uL nRBC 0.0 0.0 - 0.0 /100 WBCs RBC 4.04 (L) 4.50 - 5.90 x10*6/uL Hemoglobin 15.0 13.5 - 17.5 g/dL Hematocrit 41.9 41.0 - 52.0 % MCV 104 (H) 80 - 100 fL MCH 37.1 (H) 26.0 - 34.0 pg MCHC 35.8 32.0 - 36.0 g/dL RDW 13.0 11.5 - 14.5 % Platelets 156 150 - 450 x10*3/uL Magnesium Result Value Ref Range Magnesium 1.76 1.60 - 2.40 mg/dL Phosphorus Result Value Ref Range Phosphorus 3.4 2.5 - 4.9 mg/dL Recent Imaging XR chest 1 view Final Result 1. Left apical chest tube in place. No pneumothorax. 2. Chronic healed left posterior 5th, 6th, 7th rib fractures with cortical deformities. 3. Additional previously described fractures of the left posterior and posterolateral 9th through 12th ribs are better evaluated on the previous CT chest study. MACRO: None. Signed by: Brittney Holder 04/09/2023 11:49 AM Dictation workstation: [id number] XR chest 1 view Final Result Increased opacity at the left base. Multiple left-sided rib fractures. MACRO: none Signed by: Ronel Basurto 04/08/2023 11:32 AM Dictation workstation: [id number] XR chest 1 view Final Result 1. Combination of multiple left nonacute nonacute rib fracture deformities again partially visualized. 2. Left basilar opacification most confluent in the retrocardiac region again seen and may be due to a combination of atelectasis and or infiltrates. 3. No appreciable pneumothorax. MACRO: None. Signed by: Silvia Sood 04/07/2023 11:25 AM Dictation workstation: [id number] XR chest 1 view Final Result 1. Partial visualization of multiple left-sided rib deformities representing a combination of nonacute and acute fractures as better seen and described on recent chest CT. No appreciable pneumothorax. 2. Increased opacification of the left base may be due to a combination of consolidation, volume loss and possible small volume pleural effusion. MACRO: None. Signed by: Silvia Sood 04/07/2023 11:27 AM Dictation workstation: [id number] XR chest 1 view Final Result 1. No acute cardiopulmonary process. 2. Redemonstration of acute left posterolateral 9th through 12th rib fractures that are better evaluated on the previous CT chest study. More remote fractures of left posterior 5th through 7th ribs noted as well. MACRO: None. Signed by: Brittney Holder 04/05/2023 9:10 AM Dictation workstation: [id number] CT thoracic spine wo IV contrast Final Result Nondisplaced fractures of the posterior 12th, 11th, 10th rib. Ribs are incompletely visualized with this field of view. Trace left pleural effusion or hemothorax. No sign of thoracic vertebral body fracture or malalignment. No CT evidence of central canal stenosis. Signed by: Antoine Veloz 04/04/2023 7:41 AM Dictation workstation: [id number] CT lumbar spine wo IV contrast Final Result Nondisplaced fractures of the left 11th and 12th rib posteriorly. Severe discogenic degenerative changes of the lumbosacral junction. There is bulging disc and right paracentral disc extrusion. Disc material may contact the right S1 nerve root and should be correlated with any clinical findings of radiculopathy. There is mild central canal narrowing at this level and quch-au-oghsjwup bilateral neural foraminal narrowing. Signed by: Antoine Veloz 04/04/2023 7:37 AM Dictation workstation: [id number] CT chest abdomen pelvis w IV contrast Final Result Fractures of the posterior and posterolateral left 12th, 11th, 10th, and 9th rib. Trace left hemothorax. There is no sizable pneumothorax. Severe fatty metamorphosis of the liver. Severe discogenic degenerative changes at the lumbosacral junction, described in detail on the CT lumbar spine examination of the same day. The remainder of the chest, abdomen, and pelvis is unremarkable. There is no evidence solid or hollow visceral injury. Signed by: Antoine Veloz 04/04/2023 7:48 AM Dictation workstation: [id number] CT head wo IV contrast Final Result No CT evidence of acute intracranial hemorrhage or mass effect. Mucoperiosteal thickening of the ethmoid air cells. Signed by: Antoine Veloz 04/04/2023 7:21 AM Dictation workstation: [id number] CT cervical spine wo IV contrast Final Result Uxbc-no-paemxttw lower cervical spondylosis as described above. Mild multilevel bulging disc without significant central canal narrowing. Mild and moderate multilevel neural foraminal narrowing as described above. No sign of acute fracture or subluxation. Signed by: Antoine Veloz 04/04/2023 7:24 AM Dictation workstation: [id number] XR chest 1 view Final Result No radiographic evidence of acute cardiopulmonary pathology. MACRO: None. Signed by: Sadi Figueroa 04/04/2023 4:56 AM Dictation workstation: [id number] No echocardiogram results found for the past 14 days Assessment/Plan: Consulted for a 47 year old male for observation post left sided VATS procedure with evacuation of hemothorax and plating of ribs 9 and 10. He had a fall in the shower and was brought to the ICU on 04/04 where he was treated for EtOH withdrawals and then transferred to the floor for further management. Patient underwent his VATS procedure with an intercostal nerve block. He denies nausea, vomiting, and pain. I am currently managing this critically ill patient for: Post VATS with evacuation of hemothorax and plating of ribs 9 and 10 Acute posttraumatic pain History of alcohol use disorder Daily Plan: Neuro/Psych/Pain Ctrl/Sedation: Multimodal pain control: Scheduled Toradol, Tylenol, Robaxin, Lidoderm patch. PRN Dilaudid 0.5mg q2h, oxycodone 10 mg q4h Continue home Zoloft Phenobarbital taper for alcohol withdrawal Thiamine/folate Continue CIWA, currently day 5 Respiratory/ENT: Chest XR showed no pneumothorax or hemothorax post procedure, Chest tube to water seal Continue supplemental oxygen, currently on 3L nasal cannula, wean as able Continue incentive spirometry DuoNebs as needed Nicotine patch ordered Cardiovascular: Maintain MAP greater than 65, not currently on any vasoactive agents Continue home hydrochlorothiazide/lisinopril GI: Started regular diet Renal/Volume Status (Intra & Extravascular): Urine output/electrolytes acceptable, no need for TRUSS ASSEMBLER BMP in morning Endocrine Maintain euglycemia, no insulin needed Given 8 mg of decadron pre-procedure Infectious Disease: No systemic infectious concerns Given Ancef pre-procedure Heme/Onc: Transfuse for symptomatic anemia, no current indication MSK: Trauma following, PT/OT DVT Prophylaxis: Held GI Prophylaxis: not indicated Bowel Regimen: Miralax Diet: Regular CVC: None [place]: Left radial Spear: None Restraints: None Code Status: Full Dispo: ICU care today transfer tomorrow Plan Discussed with Dr. Juares Critical Care Time: 20 minutes Critical Care Kimani Almodovar PA-C [facility] Work Phone: 04-09-2023 Note Formatting of this n ote might be different from the original. [facility], patient is AOx4, pain is 3-4 [facility] Work Phone: 04-09-2023 Note Formatting of this n ote is different from the original. Date: 04/04/2023 - 04/09/2023 OR Location: [facility] Name: Ford Phelan : 1975, Age: 47 y.o., , Sex: male Preop Diagnosis: traumatic rib fracture Postop Diagnosis: traumatic rib fracture, hemothorax Procedures: Left VATS open reduction intrathoracic plating of left 9th and 10th Left VATS evacuation of hemothorax Bronchoscopy Intercostal nerve block Surgeons: Isaac Cox MD Resident/Fellow/Other Engineer Automated Equipment: Surgeon(s) and Role: * Karlene Adams PA-C - Assisting Anesthesia: General ASA: II Anesthesia Staff: Anesthesiologist: Francisco Cantrell MD [employer] SALES HOST/HOSTESS: Luis Greer APRN-CHERYL Estimated Blood Loss: 10mL Intra-op Medications: Medication Name Total Dose sodium chloride 0.9 % irrigation solution 1,000 mL enoxaparin (Lovenox) syringe 30 mg Cannot be calculated ceFAZolin in dextrose (iso-os) (Ancef) IVPB 2 g 2 g Anesthesia Record Intraprocedure I/O Totals Intake Propofol Drip 0.00 mL The total shown is the total volume documented since Anesthesia Start was filed. Total Intake 0 mL Specimen: No specimens collected Staff: Training Manager: Sara Brown RN Scrub Person: Rickey Rand Findings: Old blood in the chest about 300 cc evacuated, severe displaced posterior left ninth rib reduced. Displaced left 10th rib. Indication: This is a 47 year old gentleman with history of fall recently with multiple rib fractures whose pain was not well controlled with conservative pain management. CT scan showed severely displaced left ninth rib and the fractured rib end poking into his lung parenchyma. He cannot do deep breathing or coughing due to pain. I offered to him rib plating procedure minimally invasively. The risk of surgery including bleeding, infection, postop pain and the air leak. The alternative is to continue current pain management. Patient consent to proceed with surgery. Operation Details: Patient was brought to operation room. A time-out was performed. Patient name, MRN and procedure were confirmed and all staff were in agreement. Patient received subcutaneous heparin. SCDs were placed and working. Ancef was given prior to incision. Patient was induced and intubated with a double lumen tube without issue. We then performed bronchoscopy through the double lumen tube. There was copious amount of thin secretions in airway. The secretion was sucked out as much as possible. The airway anatomy was noticeable for early bifurcated RUL bronchus. Then we turned the patient to right decubitus position. All pressure points are padded. Double lumen was confirmed again in correct position. The chest was prepped and draped in sterile fashion. A pre-incision time out was performed. All staff are in agreement to proceed. I made my camera port at 6th intercostal space anteriorly. The chest was entered without issue. Large amount of old hemothorax was drained out about 300cc. I performed intercostal nerve blocks using 0.25 Marcaine with epi about 5cc per intercostal space. Then I identified the posterior displaced fracture ninth rib easily. I then made my posterior incision right above the fracture rib. I dissected down to the chest wall using cautery. I used a medium sized wound protector for good exposure. I identified the fracture sites of the ninth and 10th rib. I dissected down to the bone surface and removed the periosteum. I used [employer] Intrathoracic Advantage Implant System. I drilled anterior and posterior to the fracture site on both ninth and 10th rib with intra thoracic visual guidance. I used 2 long advantage bridge with locking cap to plate these 2 ribs. Both the ribs are much more stable after plating. I am happy with the results. I copiously irrigated the chest and the posterior incision. I ensured hemostasis. I left topical hemostatic agent on the posterior incision. I left one chest tubes to further drain the pleural space. It was secured to the skin with 0 Ethibon sutures. The incisions were closed with 2-0 Vicryl and then 3-0 monocryl at the skin. Patient was then woken up from anesthesia and brought to recovery room in stable condition. I was present for the entire duration of the procedure. Isaac Cox MD Thoracic Surgeon [facility] Assistant Spa Directornew product trainer [facility] Office phone: Pager: [phone] [facility] Work Phone: 04-09-2023 Attending History and physical note Patient was seen in preop area. Patient HP was reviewed. No clinical significant change was noted. Patient allergy and medication were reviewed. Patient is consented for surgery. Isaac Cox MD Thoracic Surgery Source Note - FRANKIE Lamas - 04/07/2023 2:54 PM EST Inpatient consult to Thoracic Surgery Consult performed by: FRANKIE Lamas Consult ordered by: Chris Garcia MD Reason For Consult Displaced rib fracture History Of Present Illness Ford Phelan is a 47 y.o. male with history of hypertension, tobacco use, alcohol use, and alcoholic pancreatitis. Presented on 04/04 with left-sided chest pain following a fall that occurred while getting out of the shower. Alcohol level at that time 204. CT showing fractures of the left ninth through 12th ribs with ninth rib displacement. Admitted to the ICU for pain management and pulmonary hygiene and monitoring. Thoracic surgery consulted for possible rib plating. At time of consultation, the patient is in no acute distress. His inspiratory effort is extremely limited due to pain. He is afebrile, hemodynamically stable, and maintaining adequate saturations on room air. He is requiring frequent administration of IV Dilaudid for pain control, cough effort is very poor. Findings have been reviewed with Dr. Cox, with recommendations to plate ribs for pain control. Procedure tentatively scheduled for 04/09. Past Medical History He has a past medical history of High blood pressure. Surgical History He has no past surgical history on file. Social History He reports that he has been smoking cigarettes. He started smoking about 25 years ago. He has been smoking an average of 1 pack per day. He has never used smokeless tobacco. He reports current alcohol use of about 2.0 standard drinks of alcohol per week. He reports that he does not use drugs. Family History No family history on file. Allergies Bupropion Review of Systems Constitutional: Positive for activity change. Negative for fatigue and fever. HENT: Negative. Eyes: Negative. Respiratory: Positive for cough. Cardiovascular: Left sided chest pain with inspiration and cough Gastrointestinal: Negative. Endocrine: Negative. Genitourinary: Negative. Musculoskeletal: Negative. Allergic/Immunologic: Negative. Neurological: Negative. Hematological: Negative. Psychiatric/Behavioral: Negative. Physical Exam Constitutional: General: He is not in acute distress. Appearance: Normal appearance. HENT: Head: Normocephalic. Nose: Nose normal. Mouth/Throat: Mouth: Mucous membranes are moist. Eyes: Pupils: Pupils are equal, round, and reactive to light. Cardiovascular: Rate and Rhythm: Normal rate and regular rhythm. Pulmonary: Comments: Diminished inspiratory effort BBS diminished at bases otherwise CTA Abdominal: General: Bowel sounds are normal. Palpations: Abdomen is soft. Tenderness: There is no abdominal tenderness. Genitourinary: Comments: Voiding clear yellow Musculoskeletal: General: Normal range of motion. Cervical back: Normal range of motion. Skin: General: Skin is warm and dry. Neurological: General: No focal deficit present. Mental Status: He is alert and oriented to person, place, and time. Psychiatric: Mood and Affect: Mood normal. Last Recorded Vitals Blood pressure 107/62, pulse 75, temperature 36.4 C (97.5 F), temperature source Temporal, resp. rate 12, height 1.854 m (6' 1), weight 84.1 kg (185 lb 6.5 oz), SpO2 98 %. Relevant Results Results for orders placed or performed during the hospital encounter of 04/04/23 (from the past 24 hour(s)) Basic Metabolic Panel Result Value Ref Range Glucose 107 (H) 74 - 99 mg/dL Sodium 131 (L) 136 - 145 mmol/L Potassium 3.5 3.5 - 5.3 mmol/L Chloride 95 (L) 98 - 107 mmol/L Bicarbonate 31 21 - 32 mmol/L Anion Gap 9 (L) 10 - 20 mmol/L Urea Nitrogen 9 6 - 23 mg/dL Creatinine 0.56 0.50 - 1.30 mg/dL eGFR >90 >60 mL/min/1.73m*2 Calcium 8.1 (L) 8.6 - 10.3 mg/dL CBC Result Value Ref Range WBC 6.8 4.4 - 11.3 x10*3/uL nRBC 0.0 0.0 - 0.0 /100 WBCs RBC 3.58 (L) 4.50 - 5.90 x10*6/uL Hemoglobin 13.3 (L) 13.5 - 17.5 g/dL Hematocrit 36.9 (L) 41.0 - 52.0 % MCV 103 (H) 80 - 100 fL MCH 37.2 (H) 26.0 - 34.0 pg MCHC 36.0 32.0 - 36.0 g/dL RDW 12.8 11.5 - 14.5 % Platelets 118 (L) 150 - 450 x10*3/uL Magnesium Result Value Ref Range Magnesium 1.80 1.60 - 2.40 mg/dL Phosphorus Result Value Ref Range Phosphorus 2.6 2.5 - 4.9 mg/dL XR chest 1 view Result Date: 04/07/2023 Interpreted By: Silvia Sood, STUDY: XR CHEST 1 VIEW; 04/06/2023 10:48 am INDICATION: Signs/Symptoms:rib fractures. COMPARISON: 04/04/2023. ACCESSION NUMBER(S): [id number] ORDERING CLINICIAN: CHRIS GARCIA FINDINGS: CARDIOMEDIASTINAL SILHOUETTE: Borderline size of the cardiac silhouette is stable. LUNGS: There is increased opacification of the left base which may be due to a combination of consolidation, volume loss and possible small volume pleural effusion. No right lung consolidation is seen. No appreciable pneumothorax. ABDOMEN: No remarkable upper abdominal findings. BONES: Multiple left-sided rib deformities are partially visualized representing a combination of nonacute and acute fractures as better seen and described on previous chest CT. 1. Partial visualization of multiple left-sided rib deformities representing a combination of nonacute and acute fractures as better seen and described on recent chest CT. No appreciable pneumothorax. 2. Increased opacification of the left base may be due to a combination of consolidation, volume loss and possible small volume pleural effusion. MACRO: None. Signed by: Silvia Sood 04/07/2023 11:27 AM Dictation workstation: [id number] XR chest 1 view Result Date: 04/07/2023 Interpreted By: Silvia Sood, STUDY: XR CHEST 1 VIEW; 04/07/2023 5:37 am INDICATION: Signs/Symptoms:rib fractures. COMPARISON: 04/06/2023. ACCESSION NUMBER(S): [id number] ORDERING CLINICIAN: CHRIS GARCIA FINDINGS: CARDIOMEDIASTINAL SILHOUETTE: Borderline size of the cardiac silhouette is stable. LUNGS: Left basilar opacification most confluent in the retrocardiac region may represent atelectasis and/or infiltrate. Small left effusion not excluded. Right midlung mild linear atelectasis or scarring is present. No appreciable pneumothorax. ABDOMEN: No remarkable upper abdominal findings. BONES: Combination of multiple left nonacute and acute rib fracture deformities are partially visualized as better seen and described on previous CT. 1. Combination of multiple left nonacute nonacute rib fracture deformities again partially visualized. 2. Left basilar opacification most confluent in the retrocardiac region again seen and may be due to a combination of atelectasis and or infiltrates. 3. No appreciable pneumothorax. MACRO: None. Signed by: Silvia Sood 04/07/2023 11:25 AM Dictation workstation: [id number] Scheduled medications acetaminophen, 975 mg, oral, q8h enoxaparin, 30 mg, subcutaneous, q12h folic acid, 1 mg, oral, Daily hydroCHLOROthiazide, 12.5 mg, oral, Daily ketorolac, 15 mg, intravenous, q6h lidocaine, 1 patch, transdermal, Daily lisinopril, 20 mg, oral, Daily magnesium oxide, 800 mg, oral, Daily melatonin, 6 mg, oral, Nightly methocarbamol, 1,000 mg, oral, q8h KORIN multivitamin with minerals, 1 tablet, oral, Daily nicotine, 1 patch, transdermal, Daily Followed by [START ON 05/16/2023] nicotine, 1 patch, transdermal, Daily Followed by [START ON 05/30/2023] nicotine, 1 patch, transdermal, Daily PHENobarbitaL, 64.8 mg, oral, TID Followed by [START ON 04/09/2023] PHENobarbitaL, 32.4 mg, oral, TID polyethylene glycol, 17 g, oral, Daily sertraline, 100 mg, oral, Daily thiamine, 100 mg, oral, Daily Continuous medications PRN medications PRN medications: albuterol, guaiFENesin, HYDROmorphone, naloxone, ondansetron ODT OR ondansetron, oxyCODONE, oxyCODONE, oxygen Assessment/Plan Multiple rib fractures following mechanical fall -Presented to ED with left-sided chest pain following a mechanical fall in the shower which he sustained fractures of the ninth through 12th ribs with ninth rib displacement. Significant pain that is prohibitive of effective coughing/pulmonary hygiene and placing patient at risk for complications of pneumonia. Findings have been reviewed with Dr Cox, recommend rib plating. Procedure has been scheduled for 04/09. I spent 60 minutes in the professional and overall care of this patient. [facility] Work Phone: 04-09-2023 History and physical note Patient was seen in preop area. Patient HP was reviewed. No clinical significant change was noted. Patient allergy and medication were reviewed. Patient is consented for surgery. Isaac Cox MD Thoracic Surgery Source Note - FRANKIE Lamas - 04/07/2023 2:54 PM EST Inpatient consult to Thoracic Surgery Consult performed by: FRANKIE Lamas Consult ordered by: Chris Garcia MD Reason For Consult Displaced rib fracture History Of Present Illness Ford Phelan is a 47 y.o. male with history of hypertension, tobacco use, alcohol use, and alcoholic pancreatitis. Presented on 04/04 with left-sided chest pain following a fall that occurred while getting out of the shower. Alcohol level at that time 204. CT showing fractures of the left ninth through 12th ribs with ninth rib displacement. Admitted to the ICU for pain management and pulmonary hygiene and monitoring. Thoracic surgery consulted for possible rib plating. At time of consultation, the patient is in no acute distress. His inspiratory effort is extremely limited due to pain. He is afebrile, hemodynamically stable, and maintaining adequate saturations on room air. He is requiring frequent administration of IV Dilaudid for pain control, cough effort is very poor. Findings have been reviewed with Dr. Cox, with recommendations to plate ribs for pain control. Procedure tentatively scheduled for 04/09. Past Medical History He has a past medical history of High blood pressure. Surgical History He has no past surgical history on file. Social History He reports that he has been smoking cigarettes. He started smoking about 25 years ago. He has been smoking an average of 1 pack per day. He has never used smokeless tobacco. He reports current alcohol use of about 2.0 standard drinks of alcohol per week. He reports that he does not use drugs. Family History No family history on file. Allergies Bupropion Review of Systems Constitutional: Positive for activity change. Negative for fatigue and fever. HENT: Negative. Eyes: Negative. Respiratory: Positive for cough. Cardiovascular: Left sided chest pain with inspiration and cough Gastrointestinal: Negative. Endocrine: Negative. Genitourinary: Negative. Musculoskeletal: Negative. Allergic/Immunologic: Negative. Neurological: Negative. Hematological: Negative. Psychiatric/Behavioral: Negative. Physical Exam Constitutional: General: He is not in acute distress. Appearance: Normal appearance. HENT: Head: Normocephalic. Nose: Nose normal. Mouth/Throat: Mouth: Mucous membranes are moist. Eyes: Pupils: Pupils are equal, round, and reactive to light. Cardiovascular: Rate and Rhythm: Normal rate and regular rhythm. Pulmonary: Comments: Diminished inspiratory effort BBS diminished at bases otherwise CTA Abdominal: General: Bowel sounds are normal. Palpations: Abdomen is soft. Tenderness: There is no abdominal tenderness. Genitourinary: Comments: Voiding clear yellow Musculoskeletal: General: Normal range of motion. Cervical back: Normal range of motion. Skin: General: Skin is warm and dry. Neurological: General: No focal deficit present. Mental Status: He is alert and oriented to person, place, and time. Psychiatric: Mood and Affect: Mood normal. Last Recorded Vitals Blood pressure 107/62, pulse 75, temperature 36.4 C (97.5 F), temperature source Temporal, resp. rate 12, height 1.854 m (6' 1), weight 84.1 kg (185 lb 6.5 oz), SpO2 98 %. Relevant Results Results for orders placed or performed during the hospital encounter of 04/04/23 (from the past 24 hour(s)) Basic Metabolic Panel Result Value Ref Range Glucose 107 (H) 74 - 99 mg/dL Sodium 131 (L) 136 - 145 mmol/L Potassium 3.5 3.5 - 5.3 mmol/L Chloride 95 (L) 98 - 107 mmol/L Bicarbonate 31 21 - 32 mmol/L Anion Gap 9 (L) 10 - 20 mmol/L Urea Nitrogen 9 6 - 23 mg/dL Creatinine 0.56 0.50 - 1.30 mg/dL eGFR >90 >60 mL/min/1.73m*2 Calcium 8.1 (L) 8.6 - 10.3 mg/dL CBC Result Value Ref Range WBC 6.8 4.4 - 11.3 x10*3/uL nRBC 0.0 0.0 - 0.0 /100 WBCs RBC 3.58 (L) 4.50 - 5.90 x10*6/uL Hemoglobin 13.3 (L) 13.5 - 17.5 g/dL Hematocrit 36.9 (L) 41.0 - 52.0 % MCV 103 (H) 80 - 100 fL MCH 37.2 (H) 26.0 - 34.0 pg MCHC 36.0 32.0 - 36.0 g/dL RDW 12.8 11.5 - 14.5 % Platelets 118 (L) 150 - 450 x10*3/uL Magnesium Result Value Ref Range Magnesium 1.80 1.60 - 2.40 mg/dL Phosphorus Result Value Ref Range Phosphorus 2.6 2.5 - 4.9 mg/dL XR chest 1 view Result Date: 04/07/2023 Interpreted By: Silvia Sood, STUDY: XR CHEST 1 VIEW; 04/06/2023 10:48 am INDICATION: Signs/Symptoms:rib fractures. COMPARISON: 04/04/2023. ACCESSION NUMBER(S): [id number] ORDERING CLINICIAN: CHRIS GARCIA FINDINGS: CARDIOMEDIASTINAL SILHOUETTE: Borderline size of the cardiac silhouette is stable. LUNGS: There is increased opacification of the left base which may be due to a combination of consolidation, volume loss and possible small volume pleural effusion. No right lung consolidation is seen. No appreciable pneumothorax. ABDOMEN: No remarkable upper abdominal findings. BONES: Multiple left-sided rib deformities are partially visualized representing a combination of nonacute and acute fractures as better seen and described on previous chest CT. 1. Partial visualization of multiple left-sided rib deformities representing a combination of nonacute and acute fractures as better seen and described on recent chest CT. No appreciable pneumothorax. 2. Increased opacification of the left base may be due to a combination of consolidation, volume loss and possible small volume pleural effusion. MACRO: None. Signed by: Silvia Sood 04/07/2023 11:27 AM Dictation workstation: [id number] XR chest 1 view Result Date: 04/07/2023 Interpreted By: Silvia Sood, STUDY: XR CHEST 1 VIEW; 04/07/2023 5:37 am INDICATION: Signs/Symptoms:rib fractures. COMPARISON: 04/06/2023. ACCESSION NUMBER(S): [id number] ORDERING CLINICIAN: CHRIS GARCIA FINDINGS: CARDIOMEDIASTINAL SILHOUETTE: Borderline size of the cardiac silhouette is stable. LUNGS: Left basilar opacification most confluent in the retrocardiac region may represent atelectasis and/or infiltrate. Small left effusion not excluded. Right midlung mild linear atelectasis or scarring is present. No appreciable pneumothorax. ABDOMEN: No remarkable upper abdominal findings. BONES: Combination of multiple left nonacute and acute rib fracture deformities are partially visualized as better seen and described on previous CT. 1. Combination of multiple left nonacute nonacute rib fracture deformities again partially visualized. 2. Left basilar opacification most confluent in the retrocardiac region again seen and may be due to a combination of atelectasis and or infiltrates. 3. No appreciable pneumothorax. MACRO: None. Signed by: Silvia Sood 04/07/2023 11:25 AM Dictation workstation: [id number] Scheduled medications acetaminophen, 975 mg, oral, q8h enoxaparin, 30 mg, subcutaneous, q12h folic acid, 1 mg, oral, Daily hydroCHLOROthiazide, 12.5 mg, oral, Daily ketorolac, 15 mg, intravenous, q6h lidocaine, 1 patch, transdermal, Daily lisinopril, 20 mg, oral, Daily magnesium oxide, 800 mg, oral, Daily melatonin, 6 mg, oral, Nightly methocarbamol, 1,000 mg, oral, q8h KORIN multivitamin with minerals, 1 tablet, oral, Daily nicotine, 1 patch, transdermal, Daily Followed by [START ON 05/16/2023] nicotine, 1 patch, transdermal, Daily Followed by [START ON 05/30/2023] nicotine, 1 patch, transdermal, Daily PHENobarbitaL, 64.8 mg, oral, TID Followed by [START ON 04/09/2023] PHENobarbitaL, 32.4 mg, oral, TID polyethylene glycol, 17 g, oral, Daily sertraline, 100 mg, oral, Daily thiamine, 100 mg, oral, Daily Continuous medications PRN medications PRN medications: albuterol, guaiFENesin, HYDROmorphone, naloxone, ondansetron ODT OR ondansetron, oxyCODONE, oxyCODONE, oxygen Assessment/Plan Multiple rib fractures following mechanical fall -Presented to ED with left-sided chest pain following a mechanical fall in the shower which he sustained fractures of the ninth through 12th ribs with ninth rib displacement. Significant pain that is prohibitive of effective coughing/pulmonary hygiene and placing patient at risk for complications of pneumonia. Findings have been reviewed with Dr Cox, recommend rib plating. Procedure has been scheduled for 04/09. I spent 60 minutes in the professional and overall care of this patient. [facility] Critical Care Medicine Date: 04/04/2023 Patient: Ford Phelan Date of : 1975 Admit Date: 04/04/2023 ======== Chief Complaint Patient presents with Fall Pt slipped getting out of the shower and fell forward, hit left side of body on the bath tub. History of Present Illness: Ford Phelan is a 47 y.o. year old male patient with Past Medical History of hypertension, vit b12 deficiency, alcohol abuse, daily smoker. Patient has a history of alcohol abuse and has been admitted at [facility] in the past for alcoholic pancreatitis as well as alcohol withdrawal. Patient arrived to [facility] emergency department 04/04 with complaints of mechanical fall at home while getting out of the shower. He had his left side on the edge of the bathtub. He denies hitting his head or losing consciousness. In the emergency department he was afebrile, stable vital signs, oxygen saturations low 90s on room air, pain with inspiration. Full trauma work-up was done which demonstrated fractures of the left ninth through 12th ribs. Alcohol level 204. Patient was admitted to the ICU with trauma consult for pain management and aggressive pulmonary hygiene. Interval ICU Events: 04/04: Trauma alert for fall in shower. Left 9th -12th rib fractures. Alcohol level 204. Admitted to ICU for pain management and pulmonary hygiene. Medical History: Past Medical History: Diagnosis Date High blood pressure No past surgical history on file. Medications Prior to Admission Medication Sig Dispense Refill Last Dose albuterol 90 mcg/actuation aerosol powdr breath activated inhaler Inhale 2 puffs every 4 hours if needed for wheezing. Unknown clonazePAM (KlonoPIN) 0.5 mg tablet Take 0.5 tablets (0.25 mg) by mouth 2 times a day as needed for anxiety. Unknown hydroCHLOROthiazide (HYDRODiuril) 12.5 mg tablet Take 1 tablet (12.5 mg) by mouth once daily. 04/02/2023 lisinopril 20 mg tablet Take 1 tablet (20 mg) by mouth once daily. 04/02/2023 sertraline (Zoloft) 100 mg tablet Take 1 tablet (100 mg) by mouth once daily. 04/02/2023 thiamine 100 mg tablet Take 1 tablet (100 mg) by mouth once daily. 04/02/2023 Bupropion Social History Tobacco Use Smoking status: Every Day Packs/day: 1 Types: Cigarettes Start date: 1997 Smokeless tobacco: Never Vaping Use Vaping Use: Every day Substance Use Topics Alcohol use: Yes Alcohol/week: 2.0 standard drinks of alcohol Types: 2 Standard drinks or equivalent per week Drug use: Never No family history on file. Hospital Medications: lactated Ringer's, 75 mL/hr Current Facility-Administered Medications: acetaminophen (Tylenol) tablet 975 mg, 975 mg, oral, q6h KORIN, Chris Garcia MD albuterol 90 mcg/actuation inhaler 2 puff, 2 puff, inhalation, q4h PRN, Chris Garcia MD enoxaparin (Lovenox) syringe 30 mg, 30 mg, subcutaneous, q12h, Chris Garcia MD folic acid (Folvite) tablet 1 mg, 1 mg, oral, Daily, Praneeth Anderson APRN-AMANDA HYDROmorphone (Dilaudid) injection 0.5 mg, 0.5 mg, intravenous, q2h PRN, Chris Garcia MD ketorolac (Toradol) injection 15 mg, 15 mg, intravenous, q6h PRN, Chris Garcia MD lactated Ringer's infusion, 75 mL/hr, intravenous, Continuous, Chris Garcia MD lidocaine 4 % patch 1 patch, 1 patch, transdermal, Once, Thanh Magallanes MD, 1 patch at 04/04/23 0702 lidocaine 4 % patch 1 patch, 1 patch, transdermal, Daily, Chris Garcia MD methocarbamol (Robaxin) tablet 500 mg, 500 mg, oral, q6h, Chris Garcia MD multivitamin with minerals 1 tablet, 1 tablet, oral, Daily, Praneeth Anderson APRN-AMANDA naloxone (Narcan) injection 0.2 mg, 0.2 mg, intravenous, q5 min PRN, Chris Garcia MD naloxone (Narcan) injection 0.2 mg, 0.2 mg, intravenous, q5 min PRN, Chris Garcia MD ondansetron ODT (Zofran-ODT) disintegrating tablet 4 mg, 4 mg, oral, q8h PRN OR ondansetron (Zofran) injection 4 mg, 4 mg, intravenous, q8h PRN, Chris Garcia MD oxyCODONE (Roxicodone) immediate release tablet 10 mg, 10 mg, oral, q4h PRN, Chris Garcia MD oxyCODONE (Roxicodone) immediate release tablet 5 mg, 5 mg, oral, q4h PRN, Chris Garcia MD oxygen (O2) therapy, , inhalation, Continuous PRN - O2/gases, Chris Garcia MD polyethylene glycol (Glycolax, Miralax) packet 17 g, 17 g, oral, Daily, Chris Garcia MD prochlorperazine (Compazine) tablet 10 mg, 10 mg, oral, q6h PRN OR prochlorperazine (Compazine) injection 10 mg, 10 mg, intravenous, q6h PRN OR prochlorperazine (Compazine) suppository 25 mg, 25 mg, rectal, q12h PRN, Chris Garcia MD sertraline (Zoloft) tablet 100 mg, 100 mg, oral, Daily, Chris Garcia MD thiamine (Vitamin B-1) tablet 100 mg, 100 mg, oral, Daily, Chris Garcia MD Review of Systems: 14 point review of systems was completed and negative except for those specially mention in my HPI Physical Exam: Heart Rate: [59-71] Temp: [36.2 C (97.2 F)-36.4 C (97.5 F)] Resp: [16-20] BP: (115-150)/(80-108) Height: [185.4 cm (6' 1)] Weight: [80.3 kg (177 lb 0.5 oz)-81.6 kg (180 lb)] SpO2: [0 %-98 %] Physical Exam Constitutional: General: He is not in acute distress. Appearance: Normal appearance. He is not ill-appearing or toxic-appearing. HENT: Head: Normocephalic and atraumatic. Mouth/Throat: Mouth: Mucous membranes are dry. Pharynx: Oropharynx is clear. Eyes: Extraocular Movements: Extraocular movements intact. Pupils: Pupils are equal, round, and reactive to light. Cardiovascular: Rate and Rhythm: Normal rate and regular rhythm. Pulses: Normal pulses. Heart sounds: Normal heart sounds. Pulmonary: Breath sounds: Normal breath sounds. Comments: Shallow breathing Chest: Chest wall: Tenderness present. Abdominal: General: Abdomen is flat. There is no distension. Palpations: There is no mass. Tenderness: There is no abdominal tenderness. Musculoskeletal: General: Normal range of motion. Cervical back: Normal range of motion and neck supple. Right lower leg: No edema. Left lower leg: No edema. Skin: General: Skin is warm and dry. Capillary Refill: Capillary refill takes less than 2 seconds. Neurological: General: No focal deficit present. Mental Status: He is alert and oriented to person, place, and time. Mental status is at baseline. Objective: I have reviewed all medications, laboratory results, and imaging pertinent for today's encounter. No intake or output data in the 24 hours ending 04/04/[address] thoracic spine wo IV contrast Final Result Nondisplaced fractures of the posterior 12th, 11th, 10th rib. Ribs are incompletely visualized with this field of view. Trace left pleural effusion or hemothorax. No sign of thoracic vertebral body fracture or malalignment. No CT evidence of central canal stenosis. Signed by: Antoine Veloz 04/04/2023 7:41 AM Dictation workstation: [id number] CT lumbar spine wo IV contrast Final Result Nondisplaced fractures of the left 11th and 12th rib posteriorly. Severe discogenic degenerative changes of the lumbosacral junction. There is bulging disc and right paracentral disc extrusion. Disc material may contact the right S1 nerve root and should be correlated with any clinical findings of radiculopathy. There is mild central canal narrowing at this level and [id number] bilateral neural foraminal narrowing. Signed by: Antoine Veloz 04/04/2023 7:37 AM Dictation workstation: [id number] CT chest abdomen pelvis w IV contrast Final Result Fractures of the posterior and posterolateral left 12th, 11th, 10th, and 9th rib. Trace left hemothorax. There is no sizable pneumothorax. Severe fatty metamorphosis of the liver. Severe discogenic degenerative changes at the lumbosacral junction, described in detail on the CT lumbar spine examination of the same day. The remainder of the chest, abdomen, and pelvis is unremarkable. There is no evidence solid or hollow visceral injury. Signed by: Antoine Veloz 04/04/2023 7:48 AM Dictation workstation: [id number] CT head wo IV contrast Final Result No CT evidence of acute intracranial hemorrhage or mass effect. Mucoperiosteal thickening of the ethmoid air cells. Signed by: Antoine Veloz 04/04/2023 7:21 AM Dictation workstation: [id number] CT cervical spine wo IV contrast Final Result [id number] lower cervical spondylosis as described above. Mild multilevel bulging disc without significant central canal narrowing. Mild and moderate multilevel neural foraminal narrowing as described above. No sign of acute fracture or subluxation. Signed by: Antoine Veloz 04/04/2023 7:24 AM Dictation workstation: [id number] XR chest 1 view Final Result No radiographic evidence of acute cardiopulmonary pathology. MACRO: None. Signed by: Sadi Figueroa 04/04/2023 4:56 AM Dictation workstation: [id number] XR chest 1 view (Results Pending) No echocardiogram results found for the past 14 days Assessment/Plan: I am currently managing this critically ill patient for the following problems: Neuro/Psych/Pain Ctrl/Sedation: No active issues -Pain control as below -Neuro checks per ICU protocol -Monitor CIWA Respiratory/ENT: Respiratory Insufficiency Secondary to left sided 9th-12th rib fractures from mechanical fall -Multimodal pain control as below -No currently requiring oxygen, keep spO2 > 92% -Aggressive pulmonary hygiene Cardiovascular: Hypertension -Continue home Lisinopril and HCTZ GI: 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 Alcohol Abuse History History of alcohol abuse, has had extensive workup at [facility] in the July 2022, transaminitis slightly worse on this admission -Check coags -Trend daily CMP -Thiamine, Folate, Multivitamins -Monitor CIWA score, has history of withdrawal Renal/Volume Status (Intra & Extravascular): Hypokalemia Secondary to chronic alcohol abuse, likely poor oral nutrition -MIV @ 75ml/hr -Daily BMP and electrolyte repletion Endocrine No active issues Infectious Disease: No active issues Heme/Onc: Chronic Thrombocytopenia In setting of hepatic staetosis and alcohol abuse -Trend daily CBC OBGYN/MSK: Mechanical Fall with 9th-12th Left Sided Rib Fractures -Multimodal pain control -Scheduled tylenol, robaxin, lidocaine patches -As needed toradol, dilaudid, oxycodone -Repeat morning cxr -Trauma following, appreciate further recommendations Ethics/Code Status: Full Code American Sign Language Teacher: DVT Prophylaxis: Lovenox GI Prophylaxis: No Indication Bowel Regimen: PRN Diet: Regular Diet CVC: no Jannet: no Spear: no Restraints: no Dispo: Full Code Critical Care Time: 40 FRANKIE Harris documented in this encounter [facility] Work Phone: 04-09-2023 Nurse Note Patient off the floor via bed with transport to pre op at this time. [facility] 04-09-2023 Nurse Note At 0015: This RN was working on computer in room, patient pushed this RN into computer while running out of the room. Patient unsteady with legs wobbling, attempting to run away from this RN. Patient shoving and pulling away from this RN while holding patient up from falling. This RN yelled for assistance, 2 other staff members assisted getting patient back to bed. Patient educated that no longer can refuse bed alarm. Pt states I get panic attacks and I do not like strangers, I'll sleep on the floor before I sleep in here. Eye mask and ear plugs given to patient. Patient adjusted in bed for comfort. In to reassess patient at this time, audible snores noted. At 0110: Patient attempted to get out of bed and run into hallway. Another RN assisted patient back to bed, bed alarm remains on. Patient educated importance of staying in bed due to being unsteady and the dangers it puts patient and staff members in. Patient states I just want to go to sleep in the hallway. I can't sleep in here. [facility] Work Phone: 04-08-2023 Plan of care note The patient's goals for the shift include The clinical goals for the shift include patient pain rating will be <4/10 by 0300 04/08/23 Over the shift, the patient did not make progress toward the following goals. Barriers to progression include Pts perception of pain. Recommendations to address these barriers include continue to administer prn pain meds per order. Problem: Pain Goal: Takes deep breaths with improved pain control throughout the shift Outcome: Not Progressing Goal: Turns in bed with improved pain control throughout the shift Outcome: Not Progressing Goal: Walks with improved pain control throughout the shift Outcome: Not Progressing Goal: Performs ADL's with improved pain control throughout shift Outcome: Not Progressing Goal: Free from opioid side effects throughout the shift Outcome: Not Progressing [facility] 04-08-2023 Plan of care note The patient's goals for the shift include The clinical goals for the shift include patient pain rating will be <4/10 by 0300 04/08/23 Problem: Pain Goal: Takes deep breaths with improved pain control throughout the shift Outcome: Progressing Goal: Turns in bed with improved pain control throughout the shift Outcome: Progressing Goal: Walks with improved pain control throughout the shift Outcome: Progressing Goal: Performs ADL's with improved pain control throughout shift Outcome: Progressing Goal: Free from opioid side effects throughout the shift Outcome: Progressing Problem: Discharge Planning Goal: Discharge to home or other facility with appropriate resources Outcome: Progressing Problem: Skin Goal: Participates in plan/prevention/treatment measures Outcome: Progressing Flowsheets (Taken 04/08/2023327) Participates in plan/prevention/treatment measures: Increase activity/out of bed for meals Goal: Promote/optimize nutrition Outcome: Progressing Flowsheets (Taken 04/08/2023327) Promote/optimize nutrition: Consume > 50% meals/supplements [facility] 04-07-2023 Consult note Associated Order (s): Inpatient consult to Thoracic Surgery Inpatient consult to Thoracic Surgery Consult performed by: Taj Enciso APRN-PIT MANAGER Consult ordered by: Chris Garcia MD Reason For Consult Displaced rib fracture History Of Present Illness Ford Phelan is a 47 y.o. male with history of hypertension, tobacco use, alcohol use, and alcoholic pancreatitis. Presented on 04/04 with left-sided chest pain following a fall that occurred while getting out of the shower. Alcohol level at that time 204. CT showing fractures of the left ninth through 12th ribs with ninth rib displacement. Admitted to the ICU for pain management and pulmonary hygiene and monitoring. Thoracic surgery consulted for possible rib plating. At time of consultation, the patient is in no acute distress. His inspiratory effort is extremely limited due to pain. He is afebrile, hemodynamically stable, and maintaining adequate saturations on room air. He is requiring frequent administration of IV Dilaudid for pain control, cough effort is very poor. Findings have been reviewed with Dr. Cox, with recommendations to plate ribs for pain control. Procedure tentatively scheduled for 04/09. Past Medical History He has a past medical history of High blood pressure. Surgical History He has no past surgical history on file. Social History He reports that he has been smoking cigarettes. He started smoking about 25 years ago. He has been smoking an average of 1 pack per day. He has never used smokeless tobacco. He reports current alcohol use of about 2.0 standard drinks of alcohol per week. He reports that he does not use drugs. Family History No family history on file. Allergies Bupropion Review of Systems Constitutional: Positive for activity change. Negative for fatigue and fever. HENT: Negative. Eyes: Negative. Respiratory: Positive for cough. Cardiovascular: Left sided chest pain with inspiration and cough Gastrointestinal: Negative. Endocrine: Negative. Genitourinary: Negative. Musculoskeletal: Negative. Allergic/Immunologic: Negative. Neurological: Negative. Hematological: Negative. Psychiatric/Behavioral: Negative. Physical Exam Constitutional: General: He is not in acute distress. Appearance: Normal appearance. HENT: Head: Normocephalic. Nose: Nose normal. Mouth/Throat: Mouth: Mucous membranes are moist. Eyes: Pupils: Pupils are equal, round, and reactive to light. Cardiovascular: Rate and Rhythm: Normal rate and regular rhythm. Pulmonary: Comments: Diminished inspiratory effort BBS diminished at bases otherwise CTA Abdominal: General: Bowel sounds are normal. Palpations: Abdomen is soft. Tenderness: There is no abdominal tenderness. Genitourinary: Comments: Voiding clear yellow Musculoskeletal: General: Normal range of motion. Cervical back: Normal range of motion. Skin: General: Skin is warm and dry. Neurological: General: No focal deficit present. Mental Status: He is alert and oriented to person, place, and time. Psychiatric: Mood and Affect: Mood normal. Last Recorded Vitals Blood pressure 107/62, pulse 75, temperature 36.4 C (97.5 F), temperature source Temporal, resp. rate 12, height 1.854 m (6' 1), weight 84.1 kg (185 lb 6.5 oz), SpO2 98 %. Relevant Results Results for orders placed or performed during the hospital encounter of 04/04/23 (from the past 24 hour(s)) Basic Metabolic Panel Result Value Ref Range Glucose 107 (H) 74 - 99 mg/dL Sodium 131 (L) 136 - 145 mmol/L Potassium 3.5 3.5 - 5.3 mmol/L Chloride 95 (L) 98 - 107 mmol/L Bicarbonate 31 21 - 32 mmol/L Anion Gap 9 (L) 10 - 20 mmol/L Urea Nitrogen 9 6 - 23 mg/dL Creatinine 0.56 0.50 - 1.30 mg/dL eGFR >90 >60 mL/min/1.73m*2 Calcium 8.1 (L) 8.6 - 10.3 mg/dL CBC Result Value Ref Range WBC 6.8 4.4 - 11.3 x10*3/uL nRBC 0.0 0.0 - 0.0 /100 WBCs RBC 3.58 (L) 4.50 - 5.90 x10*6/uL Hemoglobin 13.3 (L) 13.5 - 17.5 g/dL Hematocrit 36.9 (L) 41.0 - 52.0 % MCV 103 (H) 80 - 100 fL MCH 37.2 (H) 26.0 - 34.0 pg MCHC 36.0 32.0 - 36.0 g/dL RDW 12.8 11.5 - 14.5 % Platelets 118 (L) 150 - 450 x10*3/uL Magnesium Result Value Ref Range Magnesium 1.80 1.60 - 2.40 mg/dL Phosphorus Result Value Ref Range Phosphorus 2.6 2.5 - 4.9 mg/dL XR chest 1 view Result Date: 04/07/2023 Interpreted By: Silvia Sood, STUDY: XR CHEST 1 VIEW; 04/06/2023 10:48 am INDICATION: Signs/Symptoms:rib fractures. COMPARISON: 04/04/2023. ACCESSION NUMBER(S): [id number] ORDERING CLINICIAN: CHRIS GARCIA FINDINGS: CARDIOMEDIASTINAL SILHOUETTE: Borderline size of the cardiac silhouette is stable. LUNGS: There is increased opacification of the left base which may be due to a combination of consolidation, volume loss and possible small volume pleural effusion. No right lung consolidation is seen. No appreciable pneumothorax. ABDOMEN: No remarkable upper abdominal findings. BONES: Multiple left-sided rib deformities are partially visualized representing a combination of nonacute and acute fractures as better seen and described on previous chest CT. 1. Partial visualization of multiple left-sided rib deformities representing a combination of nonacute and acute fractures as better seen and described on recent chest CT. No appreciable pneumothorax. 2. Increased opacification of the left base may be due to a combination of consolidation, volume loss and possible small volume pleural effusion. MACRO: None. Signed by: Silvia Sood 04/07/2023 11:27 AM Dictation workstation: [id number] XR chest 1 view Result Date: 04/07/2023 Interpreted By: Silvia Sood, STUDY: XR CHEST 1 VIEW; 04/07/2023 5:37 am INDICATION: Signs/Symptoms:rib fractures. COMPARISON: 04/06/2023. ACCESSION NUMBER(S): [id number] ORDERING CLINICIAN: CHRIS GARCIA FINDINGS: CARDIOMEDIASTINAL SILHOUETTE: Borderline size of the cardiac silhouette is stable. LUNGS: Left basilar opacification most confluent in the retrocardiac region may represent atelectasis and/or infiltrate. Small left effusion not excluded. Right midlung mild linear atelectasis or scarring is present. No appreciable pneumothorax. ABDOMEN: No remarkable upper abdominal findings. BONES: Combination of multiple left nonacute and acute rib fracture deformities are partially visualized as better seen and described on previous CT. 1. Combination of multiple left nonacute nonacute rib fracture deformities again partially visualized. 2. Left basilar opacification most confluent in the retrocardiac region again seen and may be due to a combination of atelectasis and or infiltrates. 3. No appreciable pneumothorax. MACRO: None. Signed by: Silvia Sood 04/07/2023 11:25 AM Dictation workstation: [id number] Scheduled medications acetaminophen, 975 mg, oral, q8h enoxaparin, 30 mg, subcutaneous, q12h folic acid, 1 mg, oral, Daily hydroCHLOROthiazide, 12.5 mg, oral, Daily ketorolac, 15 mg, intravenous, q6h lidocaine, 1 patch, transdermal, Daily lisinopril, 20 mg, oral, Daily magnesium oxide, 800 mg, oral, Daily melatonin, 6 mg, oral, Nightly methocarbamol, 1,000 mg, oral, q8h KORIN multivitamin with minerals, 1 tablet, oral, Daily nicotine, 1 patch, transdermal, Daily Followed by [START ON 05/16/2023] nicotine, 1 patch, transdermal, Daily Followed by [START ON 05/30/2023] nicotine, 1 patch, transdermal, Daily PHENobarbitaL, 64.8 mg, oral, TID Followed by [START ON 04/09/2023] PHENobarbitaL, 32.4 mg, oral, TID polyethylene glycol, 17 g, oral, Daily sertraline, 100 mg, oral, Daily thiamine, 100 mg, oral, Daily Continuous medications PRN medications PRN medications: albuterol, guaiFENesin, HYDROmorphone, naloxone, ondansetron ODT OR ondansetron, oxyCODONE, oxyCODONE, oxygen Assessment/Plan Multiple rib fractures following mechanical fall -Presented to ED with left-sided chest pain following a mechanical fall in the shower which he sustained fractures of the ninth through 12th ribs with ninth rib displacement. Significant pain that is prohibitive of effective coughing/pulmonary hygiene and placing patient at risk for complications of pneumonia. Findings have been reviewed with Dr Cox, recommend rib plating. Procedure has been scheduled for 04/09. I spent 60 minutes in the professional and overall care of this patient. Associated attestation - Isaac Cox MD - 04/07/2023 3:40 PM EST Ford Phelan is a 47 y.o. male consulted by Dr Garcia for evaluation and treatment of rib fractures. He is a previous healthy gentleman suffered a fall in the shower and broke several of his left-sided ribs. After trauma evaluation, he was started on the multiple IV pain medications. However he still have significant pain especially when he take a deep breath or cough. 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 This amount of pain would prevent him to go back to work in a reasonable time. On exam, this patient is alert oriented, NCAT, sclera anicterics, breathing shallow requiring O2 supplementation, regular rate and rhythm, no edema noted. Abdomen soft non-tender. No focal neurological deficits. Moving all extremities. Mood and affect normal. I reviewed the CT scan from 04/04. It showed left ninth, 10th and 11th rib fractures. The ninth rib was completely fractured with significant displacement. There is no pneumothorax or hemothorax. I reviewed his labs from this admission. It showed normal hgb and creatinine. In my opinion, this patient suffered a fall with several rib fractures. His pain control is suboptimal probably due to very displaced ninth rib. Given the degree of fracture, he met indication for replating. I discussed the benefit of replacing mainly to minimize his posttrauma pain and improve his quality of life. Surgical risk include bleeding, infection, air leak, and postop pain. The alternative is conservative and pain management. Patient consent to proceed. Thank you for involving me in the care of this patient. Isaac Cox MD Thoracic Surgeon [facility] Assistant Spa Directornew product trainer [facility] Office phone: Pager: [phone] [facility] Work Phone: 04-07-2023 Plan of care note The patient's goals for the shift include The clinical goals for the shift include patient will remain free from injury this shift. Problem: Pain Goal: Takes deep breaths with improved pain control throughout the shift Outcome: Progressing Goal: Turns in bed with improved pain control throughout the shift Outcome: Progressing Goal: Walks with improved pain control throughout the shift Outcome: Progressing [facility] 04-06-2023 Plan of care note The patient's goals for the shift include The clinical goals for the shift include patient will remain free from injury this shift. Over the shift, the patient did not make progress toward the following goals. Barriers to progression include ETOH withdrawal/management. Recommendations to address these barriers include medication management, encourage activity/participation in ADLs. Problem: Pain Goal: Takes deep breaths with improved pain control throughout the shift Outcome: Progressing Goal: Turns in bed with improved pain control throughout the shift Outcome: Progressing Goal: Free from opioid side effects throughout the shift Outcome: Progressing Problem: Discharge Planning Goal: Discharge to home or other facility with appropriate resources Outcome: Progressing Problem: Skin Goal: Participates in plan/prevention/treatment measures 04/06/2023 1720 by Alena Conn RN Outcome: Progressing 04/06/2023 1130 by Alena Conn RN Outcome: Progressing Goal: Promote/optimize nutrition 04/06/2023 1720 by Alena Conn RN Outcome: Progressing 04/06/2023 1130 by Alena Conn RN Outcome: Progressing Problem: Safety - Adult Goal: Free from fall injury 04/06/2023 1720 by Alena Conn RN Outcome: Met 04/06/2023 1129 by Alena Conn RN Outcome: Progressing Problem: Skin Goal: Decreased wound size/increased tissue granulation at next dressing change 04/06/2023 1720 by Alena Conn RN Outcome: Met 04/06/2023 1130 by Alena Conn RN Outcome: Progressing Goal: Prevent/manage excess moisture 04/06/2023 1720 by Alena Conn RN Outcome: Met 04/06/2023 1338 by Alena Conn RN Flowsheets (Taken 04/06/2023 1338) Prevent/manage excess moisture: Cleanse incontinence/protect with barrier cream 04/06/2023 1130 by Alena Conn RN Outcome: Progressing Goal: Prevent/minimize sheer/friction injuries 04/06/2023 1720 by Alena Conn RN Outcome: Met 04/06/2023 1130 by Alena Conn RN Outcome: Progressing Goal: Promote skin healing 04/06/2023 1720 by Alena Conn RN Outcome: Met 04/06/2023 1130 by Alena Conn RN Outcome: Progressing Problem: Fall/Injury Goal: Not fall by end of shift Outcome: Met Goal: Be free from injury by end of the shift Outcome: Met Goal: Verbalize understanding of personal risk factors for fall in the hospital Outcome: Met Goal: Verbalize understanding of risk factor reduction measures to prevent injury from fall in the home Outcome: Met Goal: Use assistive devices by end of the shift Outcome: Met Goal: Pace activities to prevent fatigue by end of the shift Outcome: Met Problem: Pain Goal: Walks with improved pain control throughout the shift Outcome: Not Progressing Goal: Performs ADL's with improved pain control throughout shift Outcome: Not Progressing [facility] Work Phone: 04-05-2023 Plan of care note The patient's goals for the shift include The clinical goals for the shift include maintain pain at tolerable level Over the shift, the patient did not make progress toward the following goals. Barriers to progression include . Recommendations to address these barriers include . [facility] 04-04-2023 History and physical note [facility] Critical Care Medicine Date: 04/04/2023 Patient: Ford Phelan Date of : 1975 Admit Date: 04/04/2023 ======== Chief Complaint Patient presents with Fall Pt slipped getting out of the shower and fell forward, hit left side of body on the bath tub. History of Present Illness: Ford Phelan is a 47 y.o. year old male patient with Past Medical History of hypertension, vit b12 deficiency, alcohol abuse, daily smoker. Patient has a history of alcohol abuse and has been admitted at [facility] in the past for alcoholic pancreatitis as well as alcohol withdrawal. Patient arrived to [facility] emergency department 04/04 with complaints of mechanical fall at home while getting out of the shower. He had his left side on the edge of the bathtub. He denies hitting his head or losing consciousness. In the emergency department he was afebrile, stable vital signs, oxygen saturations low 90s on room air, pain with inspiration. Full trauma work-up was done which demonstrated fractures of the left ninth through 12th ribs. Alcohol level 204. Patient was admitted to the ICU with trauma consult for pain management and aggressive pulmonary hygiene. Interval ICU Events: 04/04: Trauma alert for fall in shower. Left 9th -12th rib fractures. Alcohol level 204. Admitted to ICU for pain management and pulmonary hygiene. Medical History: Past Medical History: Diagnosis Date High blood pressure No past surgical history on file. Medications Prior to Admission Medication Sig Dispense Refill Last Dose albuterol 90 mcg/actuation aerosol powdr breath activated inhaler Inhale 2 puffs every 4 hours if needed for wheezing. Unknown clonazePAM (KlonoPIN) 0.5 mg tablet Take 0.5 tablets (0.25 mg) by mouth 2 times a day as needed for anxiety. Unknown hydroCHLOROthiazide (HYDRODiuril) 12.5 mg tablet Take 1 tablet (12.5 mg) by mouth once daily. 04/02/2023 lisinopril 20 mg tablet Take 1 tablet (20 mg) by mouth once daily. 04/02/2023 sertraline (Zoloft) 100 mg tablet Take 1 tablet (100 mg) by mouth once daily. 04/02/2023 thiamine 100 mg tablet Take 1 tablet (100 mg) by mouth once daily. 04/02/2023 Bupropion Social History Tobacco Use Smoking status: Every Day Packs/day: 1 Types: Cigarettes Start date: 1997 Smokeless tobacco: Never Vaping Use Vaping Use: Every day Substance Use Topics Alcohol use: Yes Alcohol/week: 2.0 standard drinks of alcohol Types: 2 Standard drinks or equivalent per week Drug use: Never No family history on file. Hospital Medications: lactated Ringer's, 75 mL/hr Current Facility-Administered Medications: acetaminophen (Tylenol) tablet 975 mg, 975 mg, oral, q6h KORIN, Chris Garcia MD albuterol 90 mcg/actuation inhaler 2 puff, 2 puff, inhalation, q4h PRN, Chris Garcia MD enoxaparin (Lovenox) syringe 30 mg, 30 mg, subcutaneous, q12h, Chris Garcia MD folic acid (Folvite) tablet 1 mg, 1 mg, oral, Daily, Praneeth Anderson APRN-PIT MANAGER HYDROmorphone (Dilaudid) injection 0.5 mg, 0.5 mg, intravenous, q2h PRN, Chris Garcia MD ketorolac (Toradol) injection 15 mg, 15 mg, intravenous, q6h PRN, Chris Garcia MD lactated Ringer's infusion, 75 mL/hr, intravenous, Continuous, Chris Garcia MD lidocaine 4 % patch 1 patch, 1 patch, transdermal, Once, Thanh Magallanes MD, 1 patch at 04/04/23 0702 lidocaine 4 % patch 1 patch, 1 patch, transdermal, Daily, Chris Garcia MD methocarbamol (Robaxin) tablet 500 mg, 500 mg, oral, q6h, Chris Garcia MD multivitamin with minerals 1 tablet, 1 tablet, oral, Daily, Praneeth Anderson, ROUTE RETURNER-PIT MANAGER naloxone (Narcan) injection 0.2 mg, 0.2 mg, intravenous, q5 min PRN, Chris Garcia MD naloxone (Narcan) injection 0.2 mg, 0.2 mg, intravenous, q5 min PRN, Chris Garcia MD ondansetron ODT (Zofran-ODT) disintegrating tablet 4 mg, 4 mg, oral, q8h PRN OR ondansetron (Zofran) injection 4 mg, 4 mg, intravenous, q8h PRN, Chris Garcia MD oxyCODONE (Roxicodone) immediate release tablet 10 mg, 10 mg, oral, q4h PRN, Chris Garcia MD oxyCODONE (Roxicodone) immediate release tablet 5 mg, 5 mg, oral, q4h PRN, Chris Garcia MD oxygen (O2) therapy, , inhalation, Continuous PRN - O2/gases, Chris Garcia MD polyethylene glycol (Glycolax, Miralax) packet 17 g, 17 g, oral, Daily, Chris Garcia MD prochlorperazine (Compazine) tablet 10 mg, 10 mg, oral, q6h PRN OR prochlorperazine (Compazine) injection 10 mg, 10 mg, intravenous, q6h PRN OR prochlorperazine (Compazine) suppository 25 mg, 25 mg, rectal, q12h PRN, Chris Garcia MD sertraline (Zoloft) tablet 100 mg, 100 mg, oral, Daily, Chris Garcia MD thiamine (Vitamin B-1) tablet 100 mg, 100 mg, oral, Daily, Chris Garcia MD Review of Systems: 14 point review of systems was completed and negative except for those specially mention in my HPI Physical Exam: Heart Rate: [59-71] Temp: [36.2 C (97.2 F)-36.4 C (97.5 F)] Resp: [16-20] BP: (115-150)/(80-108) Height: [185.4 cm (6' 1)] Weight: [80.3 kg (177 lb 0.5 oz)-81.6 kg (180 lb)] SpO2: [0 %-98 %] Physical Exam Constitutional: General: He is not in acute distress. Appearance: Normal appearance. He is not ill-appearing or toxic-appearing. HENT: Head: Normocephalic and atraumatic. Mouth/Throat: Mouth: Mucous membranes are dry. Pharynx: Oropharynx is clear. Eyes: Extraocular Movements: Extraocular movements intact. Pupils: Pupils are equal, round, and reactive to light. Cardiovascular: Rate and Rhythm: Normal rate and regular rhythm. Pulses: Normal pulses. Heart sounds: Normal heart sounds. Pulmonary: Breath sounds: Normal breath sounds. Comments: Shallow breathing Chest: Chest wall: Tenderness present. Abdominal: General: Abdomen is flat. There is no distension. Palpations: There is no mass. Tenderness: There is no abdominal tenderness. Musculoskeletal: General: Normal range of motion. Cervical back: Normal range of motion and neck supple. Right lower leg: No edema. Left lower leg: No edema. Skin: General: Skin is warm and dry. Capillary Refill: Capillary refill takes less than 2 seconds. Neurological: General: No focal deficit present. Mental Status: He is alert and oriented to person, place, and time. Mental status is at baseline. Objective: I have reviewed all medications, laboratory results, and imaging pertinent for today's encounter. No intake or output data in the 24 hours ending 04/04/[address] thoracic spine wo IV contrast Final Result Nondisplaced fractures of the posterior 12th, 11th, 10th rib. Ribs are incompletely visualized with this field of view. Trace left pleural effusion or hemothorax. No sign of thoracic vertebral body fracture or malalignment. No CT evidence of central canal stenosis. Signed by: Antoine Veloz 04/04/2023 7:41 AM Dictation workstation: [id number] CT lumbar spine wo IV contrast Final Result Nondisplaced fractures of the left 11th and 12th rib posteriorly. Severe discogenic degenerative changes of the lumbosacral junction. There is bulging disc and right paracentral disc extrusion. Disc material may contact the right S1 nerve root and should be correlated with any clinical findings of radiculopathy. There is mild central canal narrowing at this level and [id number] bilateral neural foraminal narrowing. Signed by: Antoine Veloz 04/04/2023 7:37 AM Dictation workstation: [id number] CT chest abdomen pelvis w IV contrast Final Result Fractures of the posterior and posterolateral left 12th, 11th, 10th, and 9th rib. Trace left hemothorax. There is no sizable pneumothorax. Severe fatty metamorphosis of the liver. Severe discogenic degenerative changes at the lumbosacral junction, described in detail on the CT lumbar spine examination of the same day. The remainder of the chest, abdomen, and pelvis is unremarkable. There is no evidence solid or hollow visceral injury. Signed by: Antoine Veloz 04/04/2023 7:48 AM Dictation workstation: [id number] CT head wo IV contrast Final Result No CT evidence of acute intracranial hemorrhage or mass effect. Mucoperiosteal thickening of the ethmoid air cells. Signed by: Antoine Veloz 04/04/2023 7:21 AM Dictation workstation: [id number] CT cervical spine wo IV contrast Final Result Sjaz-mq-ejrlexiy lower cervical spondylosis as described above. Mild multilevel bulging disc without significant central canal narrowing. Mild and moderate multilevel neural foraminal narrowing as described above. No sign of acute fracture or subluxation. Signed by: Antoine Veloz 04/04/2023 7:24 AM Dictation workstation: [id number] XR chest 1 view Final Result No radiographic evidence of acute cardiopulmonary pathology. MACRO: None. Signed by: Sadi Figueroa 04/04/2023 4:56 AM Dictation workstation: [id number] XR chest 1 view (Results Pending) No echocardiogram results found for the past 14 days Assessment/Plan: I am currently managing this critically ill patient for the following problems: Neuro/Psych/Pain Ctrl/Sedation: No active issues -Pain control as below -Neuro checks per ICU protocol -Monitor CIWA Respiratory/ENT: Respiratory Insufficiency Secondary to left sided 9th-12th rib fractures from mechanical fall -Multimodal pain control as below -No currently requiring oxygen, keep spO2 > 92% -Aggressive pulmonary hygiene Cardiovascular: Hypertension -Continue home Lisinopril and HCTZ GI: 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 Alcohol Abuse History History of alcohol abuse, has had extensive workup at [facility] in the July 2022, transaminitis slightly worse on this admission -Check coags -Trend daily CMP -Thiamine, Folate, Multivitamins -Monitor CIWA score, has history of withdrawal Renal/Volume Status (Intra & Extravascular): Hypokalemia Secondary to chronic alcohol abuse, likely poor oral nutrition -MIV @ 75ml/hr -Daily BMP and electrolyte repletion Endocrine No active issues Infectious Disease: No active issues Heme/Onc: Chronic Thrombocytopenia In setting of hepatic staetosis and alcohol abuse -Trend daily CBC OBGYN/MSK: Mechanical Fall with 9th-12th Left Sided Rib Fractures -Multimodal pain control -Scheduled tylenol, robaxin, lidocaine patches -As needed toradol, dilaudid, oxycodone -Repeat morning cxr -Trauma following, appreciate further recommendations Ethics/Code Status: Full Code American Sign Language Teacher: DVT Prophylaxis: Lovenox GI Prophylaxis: No Indication Bowel Regimen: PRN Diet: Regular Diet CVC: no Jannet: no Spear: no Restraints: no Dispo: Full Code Critical Care Time: 40 FRANKIE Harris [facility] Work Phone: 04-04-2023 Plan of care note Problem: Pain Goal: Takes deep breaths with improved pain control throughout the shift Outcome: Progressing Goal: Turns in bed with improved pain control throughout the shift Outcome: Progressing Goal: Walks with improved pain control throughout the shift Outcome: Progressing Goal: Performs ADL's with improved pain control throughout shift Outcome: Progressing Goal: Free from opioid side effects throughout the shift Outcome: Progressing The patient's goals for the shift include The clinical goals for the shift include maintain pain at tolerable level [facility] Work Phone: 04-04-2023 Consult note Formatting of th is note is different from the original. Reason For Consult Rib fractures History Of Present Illness Ford Phelan is a 47 y.o. male presenting with rib fracture. This is an otherwise healthy 47-year-old male who had a mechanical fall at home while getting out of the shower. He hit his left side. Denies hitting his head or losing consciousness. Went to the emergency room. Afebrile, vitals are stable, satting in the low 90s on room air with pain on breathing. Full trauma work-up was done which only demonstrated fractures of the left ninth through 12th rib. Was consulted for further work-up and management. Past Medical History HTN Surgical History He has no past surgical history on file. Social History He has no history on file for tobacco use, alcohol use, and drug use. Family History No family history on file. Allergies Bupropion Review of Systems Denies any pain anywhere else, denies feeling ill before fall, denies any mental status change Physical Exam Gen: NAD, Aax3 Head: Normocephalic, atraumatic Eyes: EOMI, anicteric Ears: External atraumatic Nares: No blood and atraumatic Teeth: Good dentition, no blood Neck: Supple, no evidence of tracheal deviation, no C-spine tenderness Chest: Pain on Left lower chest with some fullness on chest and minimal crepitus, breaths are CTAB Heart: RRR Abd; Soft, ND, NTTP Back: tender on left lateral back but not in midline Extremites - good ROMx4, no visible traumas, pulses 2+ in radial, DP, PT Neuro: CN II-XII grossly intact, moving extremities x4 with sensation throughout Last Recorded Vitals Blood pressure 124/84, pulse 61, temperature 36.2 C (97.2 F), resp. rate 18, height 1.854 m (6' 1), weight 81.6 kg (180 lb), SpO2 95 %. Relevant Results Component Latest Ref Rng 04/04/2023 WBC 4.4 - 11.3 x10*3/uL 8.4 nRBC 0.0 - 0.0 /100 WBCs 0.0 RBC 4.50 - 5.90 x10*6/uL 4.39 (L) HEMOGLOBIN 13.5 - 17.5 g/dL 16.4 HEMATOCRIT 41.0 - 52.0 % 44.2 MCV 80 - 100 fL 101 (H) MCH 26.0 - 34.0 pg 37.4 (H) MCHC 32.0 - 36.0 g/dL 37.1 (H) RED CELL DISTRIBUTION WIDTH 11.5 - 14.5 % 13.7 Platelets 150 - 450 x10*3/uL 136 (L) Neutrophils % 40.0 - 80.0 % 70.9 Immature Granulocytes %, Automated 0.0 - 0.9 % 0.4 Lymphocytes % 13.0 - 44.0 % 19.3 Monocytes % 2.0 - 10.0 % 7.9 Eosinophils % 0.0 - 6.0 % 0.8 Basophils % 0.0 - 2.0 % 0.7 Neutrophils Absolute 1.20 - 7.70 x10*3/uL 5.92 Immature Granulocytes Absolute, Automated 0.00 - 0.70 x10*3/uL 0.03 Lymphocytes Absolute 1.20 - 4.80 x10*3/uL 1.61 Monocytes Absolute 0.10 - 1.00 x10*3/uL 0.66 Eosinophils Absolute 0.00 - 0.70 x10*3/uL 0.07 Basophils Absolute 0.00 - 0.10 x10*3/uL 0.06 GLUCOSE 74 - 99 mg/dL 112 (H) SODIUM 136 - 145 mmol/L 142 POTASSIUM 3.5 - 5.3 mmol/L 2.7 (LL) CHLORIDE 98 - 107 mmol/L 101 Bicarbonate 21 - 32 mmol/L 29 Anion Gap 10 - 20 mmol/L 15 Blood Urea Nitrogen 6 - 23 mg/dL 6 Creatinine 0.50 - 1.30 mg/dL 0.55 EGFR >60 mL/min/1.73m*2 >90 Calcium 8.6 - 10.3 mg/dL 8.2 (L) Albumin 3.4 - 5.0 g/dL 3.6 Alkaline Phosphatase 33 - 120 U/L 139 (H) Total Protein 6.4 - 8.2 g/dL 6.1 (L) AST 9 - 39 U/L 207 (H) Bilirubin Total 0.0 - 1.2 mg/dL 1.1 ALT 10 - 52 U/L 113 (H) LIPASE 9 - 82 U/L 205 (H) MAGNESIUM 1.60 - 2.40 mg/dL 1.72 Legend: (L) Low (H) High (LL) Low Panic Narrative & Impression Interpreted By: Antoine Veloz, STUDY: CT HEAD WO IV CONTRAST; 04/04/2023 6:55 am INDICATION: fall. COMPARISON: None. ACCESSION NUMBER(S): [id number] ORDERING CLINICIAN: JOHANNA RIOS TECHNIQUE: Contiguous unenhanced axial CT sections are performed from the skull base to the vertex. FINDINGS: The osseous structures are intact. There is moderate mucoperiosteal thickening of the ethmoid air cells. The cortical sulci and CSF spaces are symmetric in appearance. There is no sign of parenchymal hematoma or dense extra-axial fluid collection. There is no localized edema, mass effect, or shift of the midline. The liriano matter/white matter differentiation is preserved. There is a 2 3 mm basal ganglia calcification on the right. IMPRESSION: No CT evidence of acute intracranial hemorrhage or mass effect. Mucoperiosteal thickening of the ethmoid air cells. Signed by: Antoine Veloz 04/04/2023 7:21 AM Dictation workstation: [id number] Narrative & Impression Interpreted By: Antoine Veloz, STUDY: CT CERVICAL SPINE WO IV CONTRAST; 04/04/2023 6:55 am INDICATION: Signs/Symptoms:fall. COMPARISON: None. ACCESSION NUMBER(S): [id number] ORDERING CLINICIAN: JOHANNA RIOS TECHNIQUE: Contiguous axial CT sections are performed from the skullbase to the upper thoracic spine and supplemented with coronal and sagittal reformatted images. FINDINGS: The cervical vertebral body alignment is within normal limits. The facet joints align normally. The cervical vertebral body heights are maintained. There is no sign of acute fracture. There is no bone destruction or aggressive periosteal reaction. No lytic or blastic lesion is detected. There is mild cervical spondylosis at C4-5 and mild to moderate cervical spondylosis at C5-6 and C6-7 with disc space narrowing and small marginal osteophytes. There is mild multilevel facet arthrosis and uncovertebral arthrosis. There is mild narrowing of the right neural foramen at C4-5. There is moderate narrowing of the left neural foramina C5-6 and C6-7 and mild narrowing on the right. There is mild bulging disc at C4-5 and C5-6 without significant central canal narrowing. The surrounding soft tissue structures are unremarkable. There is no prevertebral soft tissue swelling or retropharyngeal air. IMPRESSION: [id number] lower cervical spondylosis as described above. Mild multilevel bulging disc without significant central canal narrowing. Mild and moderate multilevel neural foraminal narrowing as described above. No sign of acute fracture or subluxation. Signed by: Antoine Veloz 04/04/2023 7:24 AM Dictation workstation: [id number] Interpreted By: Antoine Veloz, STUDY: CT CHEST ABDOMEN PELVIS W IV CONTRAST; 04/04/2023 6:57 am INDICATION: Signs/Symptoms:left rib pain/ bruising after fall. Patient fell in the shower with left-sided chest pain. COMPARISON: None. ACCESSION NUMBER(S): [id number] ORDERING CLINICIAN: JOHANNA RIOS TECHNIQUE: Contiguous axial CT sections are performed from the thoracic inlet to lesser trochanters following the bolus administration of 90 cc of intravenous Omnipaque 350. FINDINGS: There is mild dependent edema or atelectasis in the lower lobes. There is trace left pleural effusion or hemothorax. There is no pneumothorax. There is a fracture of the left 12th rib which appears minimally displaced with slight cortical offset. There are fractures of the left 11th rib. A posterior fractures nondisplaced. A posterolateral fracture is minimally displaced at the anterior cortex. There is a fracture of the left 10th rib which is mildly displaced posteriorly and posterolaterally. There is a displaced fracture of the posterior left 9th rib with comminution. There is displacement of 1 bone width. There is surrounding edema. The remaining visualized osseous structures are intact. The thoracic aorta is of normal caliber and enhancement. There is no aortic dissection. There is no pathologic lymph node enlargement in the mediastinum or pulmonary ramirez. There is no mediastinal fluid collection or pneumomediastinum. There is no pneumothorax. There is no intraluminal filling defect in the main pulmonary artery, right left pulmonary artery, or lobar arteries. There is diffuse fatty metamorphosis of the liver with some fatty sparing surrounding the gallbladder. No space-occupying mass is detected. The gallbladder is distended though otherwise unremarkable. The spleen, pancreas, and adrenal glands are of normal CT appearance. The kidneys are symmetric in size and enhance symmetrically and uniformly. There is no hydronephrosis or renal calculus. There is no hydroureter or obstructing ureteral calculus. The urinary bladder is not opacified though is well distended and otherwise unremarkable. There is no bladder calculus. The abdominal aorta is of normal and uniform caliber. The aorta enhances normally. There is no periaortic mass or fluid collection. The IVC is unremarkable. There is no bowel distension or infiltration of the bowel mesentery. The appendix has a normal appearance. There is no free air or free fluid collection in the abdomen or pelvis. There is no herniated bowel. There is a tiny fat containing umbilical hernia. There is severe discogenic degenerative changes of the lumbosacral junction which are described in detail on the CT lumbar spine examination of the same day. IMPRESSION: Fractures of the posterior and posterolateral left 12th, 11th, 10th, and 9th rib. Trace left hemothorax. There is no sizable pneumothorax. Severe fatty metamorphosis of the liver. Severe discogenic degenerative changes at the lumbosacral junction, described in detail on the CT lumbar spine examination of the same day. The remainder of the chest, abdomen, and pelvis is unremarkable. There is no evidence solid or hollow visceral injury. Interpreted By: Antoine Veloz, STUDY: CT THORACIC SPINE WO IV CONTRAST; 04/04/2023 7:01 am INDICATION: Signs/Symptoms:fall. COMPARISON: None. ACCESSION NUMBER(S): [id number] ORDERING CLINICIAN: JOHANNA RIOS TECHNIQUE: Contiguous axial CT sections are performed through the thoracic spine and supplemented with coronal and sagittal reformatted images. FINDINGS: There is slight levoconvexity of the upper thoracic spine. The thoracic vertebral body alignment is otherwise within normal limits. The facet joints align normally. There are nondisplaced fractures of the posterior left 12th, 11th, and 10th rib. The ribs are incompletely visualized with this field of view. There is trace pleural fluid posteriorly on the left. The thoracic vertebral body heights are maintained. There are small Schmorl's node deformity at the inferior endplates T11 and T10 to the left of midline. There is otherwise no sign of thoracic vertebral body fracture. There is no bone destruction or aggressive periosteal reaction. No lytic or blastic lesion is detected. There is no significant central canal stenosis. The spinal cord is poorly characterized with CT. IMPRESSION: Nondisplaced fractures of the posterior 12th, 11th, 10th rib. Ribs are incompletely visualized with this field of view. Trace left pleural effusion or hemothorax. No sign of thoracic vertebral body fracture or malalignment. No CT evidence of central canal stenosis. Signed by: Antoine Veloz 04/04/2023 7:41 AM Dictation workstation: [id number] Narrative & Impression Interpreted By: Antoine Veloz, STUDY: CT LUMBAR SPINE WO IV CONTRAST; 04/04/2023 7:01 am INDICATION: Signs/Symptoms:fall. COMPARISON: None. ACCESSION NUMBER(S): [id number] ORDERING CLINICIAN: JOHANNA RIOS TECHNIQUE: Contiguous axial CT sections are performed through the lumbar spine is supplemented with coronal and sagittal reformatted images. FINDINGS: There is straightening of the lumbar lordosis. There is posterior subluxation of C5 relative to C6 measuring 6 mm. There are severe discogenic degenerative changes at L5-S1 with severe disc space narrowing and endplate sclerosis. There is vacuum phenomenon at this level. There is mild disc space narrowing at L1-2. The remaining lumbar disc space heights are preserved. The lumbar vertebral body heights are maintained. There are nondisplaced fractures of the posterior left 11th and 12th rib. There is no evidence lumbar vertebral body fracture. There is no bone destruction or aggressive periosteal reaction. No lytic or blastic lesion is identified. There are moderate osteoarthritic changes of both sacroiliac joints. The T12-L1 disc space level is unremarkable. The L1-2 disc space level is unremarkable. The L2-3 disc space level demonstrates mild bilateral facet arthrosis. There is mild bulging disc though no significant central canal or neural foraminal stenosis. The L3-4 disc space level demonstrates mild bilateral facet arthrosis and ligamentum flavum hypertrophy. There is mild circumferential bulging disc with mild central canal narrowing. There is mild disc encroachment on the caudal neural foramen bilaterally. The L4-5 disc space level demonstrates mild bilateral facet arthrosis and ligamentum flavum hypertrophy. There is mild bulging disc with flattening of the anterior thecal sac and mild central canal narrowing. There is mild disc encroachment on the caudal neural foramen bilaterally. The L5-S1 disc space level demonstrates mild bilateral facet arthrosis. Is bulging disc and marginal osteophyte asymmetric to the left. There is extruded disc with vacuum phenomena posteriorly to the right of midline. This finding may contact the right S1 nerve root. There is mild central canal narrowing. There is disc and osteophyte encroachment with moderate to severe bilateral neural foraminal narrowing. IMPRESSION: Nondisplaced fractures of the left 11th and 12th rib posteriorly. Severe discogenic degenerative changes of the lumbosacral junction. There is bulging disc and right paracentral disc extrusion. Disc material may contact the right S1 nerve root and should be correlated with any clinical findings of radiculopathy. There is mild central canal narrowing at this level and [id number] bilateral neural foraminal narrowing. Signed by: Antoine Veloz 04/04/2023 7:37 AM Dictation workstation: [id number] Images and labs personally reviewed Assessment/Plan 47-year-old male otherwise healthy with 4 rib fractures. He is splinting on exam and only satting in the low 90s. Is in significant pain as well. Plan to admit to the ICU for observation and pain control. We will be on primary in the ICU with ICU on consult. I spent 51 minutes in the professional and overall care of this patient. Chris Garcia MD 04/04/23 11:00 AM [facility] Work Phone: 04-04-2023 Note Associated Order(s): ECG 12 lead Procedure ECG 12 lead Performed by: Laurie Castellanos PA-C Authorized by: Thanh Magallanes MD Interpretation: Details: My EKG interpretation Rate: ECG rate: 73 ECG rate assessment: normal Rhythm: Rhythm: sinus rhythm ST segments: ST segments: Normal Laurie Castellanos PA-C 04/08/23 0350 [facility] Work Phone: 04-04-2023 Emergency department Note HPI Chief Complaint Patient presents with Fall Pt slipped getting out of the shower and fell forward, hit left side of body on the bath tub. 47-year-old male with a history of hypertension presenting to the ED today with left rib pain after a fall approximately 3 hours ago. Patient states that he was in the shower and when he got out he slipped in the shower and landed on his left ribs against the edge of the bathtub. He denies hitting his head or LOC and he is not on a blood thinner. He did not injure his arms or legs during the fall, stood up on his own but he could not get the pain controlled so he called 911. He has pain to the left ribs worse when he tries to move or take a deep breath. He denies any neck pain or back pain from the fall. He states he slipped on water and there was no syncopal episode or chest pain or dizziness. He smokes but denies alcohol use or drug use. He denies any abdominal pain, nausea or vomiting. No further complaints at this time. History provided by: Patient No data recorded Patient History No past medical history on file. No past surgical history on file. No family history on file. Social History Tobacco Use Smoking status: Not on file Smokeless tobacco: Not on file Substance Use Topics Alcohol use: Not on file Drug use: Not on file Physical Exam ED Triage Vitals [04/04/23 0417] Temp Heart Rate Resp BP 36.2 C (97.2 F) 71 20 (!) 141/98 SpO2 Temp src Heart Rate Source Patient Position 97 % -- -- -- BP Location FiO2 (%) -- -- Physical Exam Constitutional: Comments: Appears uncomfortable HENT: Nose: Nose normal. Mouth/Throat: Mouth: Mucous membranes are moist. Pharynx: Oropharynx is clear. Eyes: Extraocular Movements: Extraocular movements intact. Conjunctiva/sclera: Conjunctivae normal. Pupils: Pupils are equal, round, and reactive to light. Cardiovascular: Rate and Rhythm: Normal rate and regular rhythm. Pulmonary: Effort: Pulmonary effort is normal. Breath sounds: Normal breath sounds. Abdominal: General: Bowel sounds are normal. There is no distension. Palpations: Abdomen is soft. Tenderness: There is no abdominal tenderness. There is no right CVA tenderness, left CVA tenderness or guarding. Comments: No tenderness throughout the abdomen or flanks. Musculoskeletal: Comments: No scalp or facial bony tenderness or signs of bony deformity. No midline tenderness, step-offs or signs of trauma to the cervical, thoracic and lumbar spines. Tenderness on palpation to the lateral aspect of the left chest wall, lower ribs slightly posterior with ecchymosis. No crepitus. No bony tenderness of bony deformity to extremities. NVI Skin: General: Skin is warm. Capillary Refill: Capillary refill takes less than 2 seconds. Neurological: General: No focal deficit present. Mental Status: He is alert and oriented to person, place, and time. Cranial Nerves: No cranial nerve deficit. Sensory: No sensory deficit. Coordination: Coordination normal. ED Course & MDM Diagnoses as of 04/04/23 0552 Fall, initial encounter Medical Decision Making 47-year-old male with a history of hypertension presenting to the ED today with left rib pain after he slipped getting out of the bathtub 3 hours ago and landed his left ribs against the edge of the bathtub. There was no head injury or LOC and he is not on a blood thinner. He is not having any neck pain or back pain and denies loss of bowel or bladder control or saddle anesthesias. He could not get the pain controlled at home so he called the ambulance. He has pain to the left ribs worse and he moves and takes in a deep breath. He otherwise denies any further associated complaints and arrives afebrile, hypertensive with otherwise stable vital signs. He does appear uncomfortable on exam but he is calm and cooperative. Heart RRR, lungs are clear and he is tender to the left ribs along the lateral aspect and slightly posterior with some ecchymosis but no crepitus. There is no further chest wall tenderness. Abdomen soft nondistended nontender without signs of trauma. He has no scalp or facial bony tenderness or deformity. His exam is otherwise within normal limits. EKG, labs and radiology studies are ordered as well as morphine, Zofran and fluids. ECG per my interpretation normal sinus rhythm at 76 bpm, prolonged QT but no acute ST elevations or depressions. chest x-ray today shows no acute cardiopulmonary process. CBC with stable H&H and no leukocytosis. Patient is still pending rest of laboratory studies, radiology studies, reevaluation and disposition is signed out of my care to Laurie Castellanos PA-C. Procedure Procedures Johanna Rios PA-C 04/04/23 0552 documented in this encounter [facility] Work Phone: 04-04-2023 Physician Emergency department Note HPI Chief Complaint Patient presents with Fall Pt slipped getting out of the shower and fell forward, hit left side of body on the bath tub. 47-year-old male with a history of hypertension presenting to the ED today with left rib pain after a fall approximately 3 hours ago. Patient states that he was in the shower and when he got out he slipped in the shower and landed on his left ribs against the edge of the bathtub. He denies hitting his head or LOC and he is not on a blood thinner. He did not injure his arms or legs during the fall, stood up on his own but he could not get the pain controlled so he called 911. He has pain to the left ribs worse when he tries to move or take a deep breath. He denies any neck pain or back pain from the fall. He states he slipped on water and there was no syncopal episode or chest pain or dizziness. He smokes but denies alcohol use or drug use. He denies any abdominal pain, nausea or vomiting. No further complaints at this time. History provided by: Patient No data recorded Patient History No past medical history on file. No past surgical history on file. No family history on file. Social History Tobacco Use Smoking status: Not on file Smokeless tobacco: Not on file Substance Use Topics Alcohol use: Not on file Drug use: Not on file Physical Exam ED Triage Vitals [04/04/23 0417] Temp Heart Rate Resp BP 36.2 C (97.2 F) 71 20 (!) 141/98 SpO2 Temp src Heart Rate Source Patient Position 97 % -- -- -- BP Location FiO2 (%) -- -- Physical Exam Constitutional: Comments: Appears uncomfortable HENT: Nose: Nose normal. Mouth/Throat: Mouth: Mucous membranes are moist. Pharynx: Oropharynx is clear. Eyes: Extraocular Movements: Extraocular movements intact. Conjunctiva/sclera: Conjunctivae normal. Pupils: Pupils are equal, round, and reactive to light. Cardiovascular: Rate and Rhythm: Normal rate and regular rhythm. Pulmonary: Effort: Pulmonary effort is normal. Breath sounds: Normal breath sounds. Abdominal: General: Bowel sounds are normal. There is no distension. Palpations: Abdomen is soft. Tenderness: There is no abdominal tenderness. There is no right CVA tenderness, left CVA tenderness or guarding. Comments: No tenderness throughout the abdomen or flanks. Musculoskeletal: Comments: No scalp or facial bony tenderness or signs of bony deformity. No midline tenderness, step-offs or signs of trauma to the cervical, thoracic and lumbar spines. Tenderness on palpation to the lateral aspect of the left chest wall, lower ribs slightly posterior with ecchymosis. No crepitus. No bony tenderness of bony deformity to extremities. NVI Skin: General: Skin is warm. Capillary Refill: Capillary refill takes less than 2 seconds. Neurological: General: No focal deficit present. Mental Status: He is alert and oriented to person, place, and time. Cranial Nerves: No cranial nerve deficit. Sensory: No sensory deficit. Coordination: Coordination normal. ED Course & MDM Diagnoses as of 04/04/23 0552 Fall, initial encounter Medical Decision Making 47-year-old male with a history of hypertension presenting to the ED today with left rib pain after he slipped getting out of the bathtub 3 hours ago and landed his left ribs against the edge of the bathtub. There was no head injury or LOC and he is not on a blood thinner. He is not having any neck pain or back pain and denies loss of bowel or bladder control or saddle anesthesias. He could not get the pain controlled at home so he called the ambulance. He has pain to the left ribs worse and he moves and takes in a deep breath. He otherwise denies any further associated complaints and arrives afebrile, hypertensive with otherwise stable vital signs. He does appear uncomfortable on exam but he is calm and cooperative. Heart RRR, lungs are clear and he is tender to the left ribs along the lateral aspect and slightly posterior with some ecchymosis but no crepitus. There is no further chest wall tenderness. Abdomen soft nondistended nontender without signs of trauma. He has no scalp or facial bony tenderness or deformity. His exam is otherwise within normal limits. EKG, labs and radiology studies are ordered as well as morphine, Zofran and fluids. ECG per my interpretation normal sinus rhythm at 76 bpm, prolonged QT but no acute ST elevations or depressions. chest x-ray today shows no acute cardiopulmonary process. CBC with stable H&H and no leukocytosis. Patient is still pending rest of laboratory studies, radiology studies, reevaluation and disposition is signed out of my care to Laurie Castellanos PA-C. Procedure Procedures Johanna Rios PA-C 04/04/23 0552 [facility] Work Phone: 11-06-2022 Miscellaneous Notes Contacted the patient and relayed the below message. Patient understands and has no other questions or concerns at this time. His genetic testing was negative. Refrain from drinking and continue to take B vitamins documented in this encounter [facility] 08-16-2022 Miscellaneous Notes The plumber's helper did not think his homcysteind level was relateed to his visual loss. I've ordered an MRI and genetic testing for Katlyn's hereditary optic neuropathy. Bruna Capellan from genetics should be calling him. documented in this encounter [facility] 08-15-2022 Note HNO ID: [id number] Author: Dino Lindsay MD Service: ? Author Type: Physician Type: Progress Notes Filed: 08/15/2022 1:16 PM Note Text: DATE OF VISIT: 08/15/22 REASON FOR CONSULTATION: Elevated homocysteine HPI: The patient is a pleasant 47 year old white gentleman who presents at the request of Dr. Kojo Kate (opthamology) for evaluation of an elevation in homocysteine. 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 Lab analysis discovered an elevated homocysteine (without vitamin B12 deficiency). Ford is worried about his vision, but denies fever/shaking chills, chest pain, SOB (incl with exertion), new lumps/bumps, bleeding (incl BRBPR, coughing up blood, black tarry BM's, blood in the urine, etc), early satiety, leg pain/swelling, unintentional weight loss or any other major problems. PMHx: EtOHism; NOA; HTN; h/o depression; h/o polysubstance drug abuse; h/o EtOHic pancreatitis. PSHx: None. MEDICATIONS/ALLERGIES: Reviewed with changes noted on the EPIC record. Soc Hx: The patient is single and lives in [place]. He smokes, drinks EtOH excessively on weekends (but stopped during the week and continues to try to cut down) and uses illegal drugs. Fam Hx: No known first degree realtives with malignancy or clots. REVIEW OF SYSTEMS GENERAL: No weight loss, fevers, malaise. HEENT: + visual loss. Negative for frequent/significant headaches, changes in hearing, nose bleeds/other nasal problems. RESPIRATORY: Negative for cough, wheezing, shortness of breath. CARDIOVASCULAR: Negative for chest pain, leg swelling, palpitations. GI: Negative for abdominal discomfort, blood in stools/black stools, change in bowel habits. : Negative for dysuria, frequency, incontinence. MUSCULOSKELETAL: Negative for joint pain or swelling, back pain, muscle pain. SKIN: Negative for lesions, itching, rash. HEMATOLOGY/LYMPHOLOGY: Negative for prolonged bleeding, bruising easily, swollen nodes. NEURO: Negative for numbness/tingling of fingers/toes. No seizures. The remainder of the review of systems was reviewed and is negative. PHYSICAL EXAMINATION: General appearance: Well appearing, in no acute distress, alert. Skin: Color, texture, turgor normal. No rashes, lesions. Head: Normal. Eyes: Anicteric sclera. Pupils are equally round and reactive to light. Oropharynx: Lips, mucosa, tongue normal. Oropharynx normal. Neck: Supple, no adenopathy; thyroid symmetric, normal size. Lungs: Clear to auscultation. No wheezing, rhonchi. Heart: RRR without murmur, gallop, rubs. No ectopy. Abdomen: Soft, non-tender. Bowel sounds normal. No masses, organomegaly. Extremities: No edema, skin discoloration. Good capillary refill. Musculoskeletal: No pain to palpation of back, adequate flexion and extension. Muscular strength intact and fairly symmetrical. Heme: No appreciable JOVAN in supraclavicular, cervical, axillary or inguinal regions bilaterally. Neuro: Gait normal. Reflexes symmetric. Sensation grossly intact. Labs: Component Latest Ref Rng AND Units 07/25/2022 Protein, Total 6.3 - 8.0 g/dL 6.9 Albumin 3.9 - 4.9 g/dL 4.4 Calcium 8.5 - 10.2 mg/dL 9.7 Bilirubin, Total 0.2 - 1.3 mg/dL 0.4 Alkaline Phosphatase 38 - 113 U/L 115 (H) AST 14 - 40 U/L 57 (H) ALT 10 - 54 U/L 49 Glucose 74 - 99 mg/dL 121 (H) BUN 9 - 24 mg/dL 9 Creatinine 0.73 - 1.22 mg/dL 0.66 (L) Sodium 136 - 144 mmol/L 138 Potassium 3.7 - 5.1 mmol/L 4.3 Chloride 97 - 105 mmol/L 106 (H) CO2 22 - 30 mmol/L 19 (L) Anion Gap 9 - 18 mmol/L 13 eGFR >=60 mL/min/1.73mA? 117 WBC 3.70 - 11.00 k/uL 8.23 RBC 4.20 - 6.00 m/uL 5.01 Hemoglobin 13.0 - 17.0 g/dL 17.8 (H) Hematocrit 39.0 - 51.0 % 51.3 (H) MCV 80.0 - 100.0 fL 102.4 (H) MCH 26.0 - 34.0 pg 35.5 (H) MCHC 30.5 - 36.0 g/dL 34.7 RDW-CV 11.5 - 15.0 % 12.4 Platelet Count 150 - 400 k/uL 187 MPV 9.0 - 12.7 fL 10.5 Absolute nRBC <0.01 k/uL <0.01 Syphilis Screen Result Nonreactive Nonreactive Syphilis Interpretation Cannot exclude recent Treponemal infection if specimen collected within 7-10 days after appearance of suspect lesions or 2-3 weeks after an exposure. Clinical correlation is required. Vitamin B12 232 - 1,245 pg/mL 345 MMA 79 - 376 nmol/L 267 NMO Aquaporin 4 IgG <1:10 <1:10 MOG-IgG1 FACS Negative Negative Homocysteine, Serum <15.1 umol/L 45.4 (H) Assessment/plan: Patient is a pleasant 47 year old white gentleman with: Elevated homocysteine level without vitamin deficiency nor clinical suggestion of homocystinuria. We have no clear medical evidence that this is directly linked with vascular RF or hypercoaguability, or that correction of this elevation will have a meaningful impact on this patient's health. I doubt not believe that this value is affecting Ford's vision. This recommendation will be communicated back to Dr. Kojo Kate electronically. Active smoking history. The importance and means of ce (more content not included)... [facility] 08-01-2022 Note HNO ID: [id number] Author: Bruna Capellan [facility] Service: ? Author Type: Genetic Counselor Type: Progress Notes Filed: 08/02/2022 4:43 PM Note Text: Patient Name and confirmed at initiation of visit YES Dr. 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 Prior to the visit, the genetic counselor reviewed records in the patient's EMR including, but not limited to, available clinic notes, physician consultations, laboratory tests, imaging reports, ophthalmic studies, and other investigations and evaluations. The genetic counselor also reviewed the case with Dr. Pineda, as needed, prior to seeing the patient. The patient was successfully seen via Virtual Visit using [employer]. Patient was not accompanied to today's appointment. I have communicated my name and active licensure. The patient's identity and physical location were verified at the time of this visit. Either the patient or their legal pharmaceutical representative has been informed of the risks and benefits of -- and alternatives to -- treatment through a remote evaluation and consents to proceed with the evaluation remotely. HISTORY OF PRESENT CONDITION: Patient was evaluated previously by Dr. Kate and additional history is available in his note. Woke up about 2 months ago and things were blurry in both eyes when looking straight ahead. Does not seem to be getting worse per patient. He got some reading glasses that seem to help with reading texts. Color vision is normal. , , AND HISTORY: Non-contributory ? PERTINENT PAST MEDICAL AND SURGICAL HISTORY INCLUDES: PAST MEDICAL HISTORY Diagnosis Date Anxiety state Depression HTN (hypertension) - enlarged liver No hearing loss No diabetes No neurological symptoms No cardiac conditions ? RELEVANT EVALUATIONS TO DATE: Eye Exam on 07/25/[address] Kate Visual Acuity (Snellen - Linear) Right Left Both Dist sc 20/150 20/200 Dist ph sc 20/100 -1 20/70 -2 Near cc J1 Tonometry (Applanation, 9:39 AM) Right Left Pressure 15 13 Pupils Dark Shape React APD Right 5 Round +1 None Left 5 Round +1 None Extraocular Movement Right Left Full Full External Exam Right Left External Normal including orbits and preauricular lymph nodes Normal including orbits and preauricular lymph nodes Slit Lamp Exam Right Left Lids/Lashes Normal lids, lashes, lacrimal glands, and lacrimal drainage Normal lids, lashes, lacrimal glands, and lacrimal drainage Conjunctiva/Sclera White and quiet White and quiet Cornea Normal epithelium, stroma, endothelium, and tear film Normal epithelium, stroma, endothelium, and tear film Anterior Chamber Deep and quiet Deep and quiet Iris Round and reactive Round and reactive Lens Clear Clear Anterior Vitreous Normal Normal Fundus Exam Right Left Disc Normal Normal C/D Ratio 0.20 0.20 Macula Normal Normal Vessels Normal Normal Periphery Normal Normal Visual Field 10-2 OU 07/25/2022 Interpretation Right Eye = Cecocentral defect. Left Eye = Cecocentral defect. PREVIOUS GENETIC TESTING: None SERVICES: Low vision consultation: NA SOCIAL HISTORY: Unemployed currently but plans to resume work next week - does tr Is a smoker Does drink alcohol FAMILY HISTORY: No family history on file - Patient's ethnicity: - No known -Burkinan, Mediterranean, /, Tajik-Latvian/Cajun, or Ashkenazi Restorationist ancestry unless noted above. - Parental consanguinity: No A 3 generation pedigree was collected. Pertinent findings are noted below. Unless otherwise noted all individuals are alive and have no significant medical problems. Children: 0. Full siblings: 0 brothers. 0 sisters. Half siblings: 0 Nieces and nephews: 0 Parental losses: NA Mother: late 70's years old, wears glasses. Maternal aunts and their children: 0. Maternal uncles and their children: 0. Maternal grandmother: . Hx cancer Maternal grandfather: . Hx cancer Other maternal relatives: NA. Father: at 69 years old, brain tumor. Had thick glasses Paternal aunts and their children: 1 - has bad eyesight - just had lasik performed. Paternal uncles and their children: 0. Paternal grandmother: - wore glasses, heart dx Paternal grandfather: - wore glasses, heart dx Other paternal relatives: NA. The remainder of Ford's reported family history is negative for known or suspected genetic disease, defects, malformation syndromes, chromosomal disorders, metabolic disorders, developmental delay, mental retardation, infertility, recurrent loss, stillbirth, unexplained , and consanguinity. GENETIC COUNSELING RISK ASSESSMENT AND DISCUSSION: We reviewed the natural hi (more content not included)... [facility] 08-01-2022 History of Present illness Narrative Patient Name and confirmed at initiation of visit YES Dr. 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 Prior to the visit, the genetic counselor reviewed records in the patient's EMR including, but not limited to, available clinic notes, physician consultations, laboratory tests, imaging reports, ophthalmic studies, and other investigations and evaluations. The genetic counselor also reviewed the case with Dr. Pineda, as needed, prior to seeing the patient. The patient was successfully seen via Virtual Visit using [employer]. Patient was not accompanied to today's appointment. I have communicated my name and active licensure. The patient's identity and physical location were verified at the time of this visit. Either the patient or their legal pharmaceutical representative has been informed of the risks and benefits of -- and alternatives to -- treatment through a remote evaluation and consents to proceed with the evaluation remotely. HISTORY OF PRESENT CONDITION: Patient was evaluated previously by Dr. Kate and additional history is available in his note. Woke up about 2 months ago and things were blurry in both eyes when looking straight ahead. Does not seem to be getting worse per patient. He got some reading glasses that seem to help with reading texts. Color vision is normal. , , AND HISTORY: Non-contributory ? PERTINENT PAST MEDICAL AND SURGICAL HISTORY INCLUDES: PAST MEDICAL HISTORY Diagnosis Date Anxiety state Depression HTN (hypertension) - enlarged liver No hearing loss No diabetes No neurological symptoms No cardiac conditions ? RELEVANT EVALUATIONS TO DATE: Eye Exam on 07/25/[address] Kate Visual Acuity (Snellen - Linear) Right Left Both Dist sc 20/150 20/200 Dist ph sc 20/100 -1 20/70 -2 Near cc J1 Tonometry (Applanation, 9:39 AM) Right Left Pressure 15 13 Pupils Dark Shape React APD Right 5 Round +1 None Left 5 Round +1 None Extraocular Movement Right Left Full Full External Exam Right Left External Normal including orbits and preauricular lymph nodes Normal including orbits and preauricular lymph nodes Slit Lamp Exam Right Left Lids/Lashes Normal lids, lashes, lacrimal glands, and lacrimal drainage Normal lids, lashes, lacrimal glands, and lacrimal drainage Conjunctiva/Sclera White and quiet White and quiet Cornea Normal epithelium, stroma, endothelium, and tear film Normal epithelium, stroma, endothelium, and tear film Anterior Chamber Deep and quiet Deep and quiet Iris Round and reactive Round and reactive Lens Clear Clear Anterior Vitreous Normal Normal Fundus Exam Right Left Disc Normal Normal C/D Ratio 0.20 0.20 Macula Normal Normal Vessels Normal Normal Periphery Normal Normal Visual Field 10-2 OU 07/25/2022 Interpretation Right Eye = Cecocentral defect. Left Eye = Cecocentral defect. PREVIOUS GENETIC TESTING: None SERVICES: Low vision consultation: NA SOCIAL HISTORY: Unemployed currently but plans to resume work next week - does tr Is a smoker Does drink alcohol FAMILY HISTORY: No family history on file - Patient's ethnicity: - No known -Burkinan, Mediterranean, /, Tajik-Latvian/Cajun, or Ashkenazi Restorationist ancestry unless noted above. - Parental consanguinity: No A 3 generation pedigree was collected. Pertinent findings are noted below. Unless otherwise noted all individuals are alive and have no significant medical problems. Children: 0. Full siblings: 0 brothers. 0 sisters. Half siblings: 0 Nieces and nephews: 0 Parental losses: NA Mother: late 70's years old, wears glasses. Maternal aunts and their children: 0. Maternal uncles and their children: 0. Maternal grandmother: . Hx cancer Maternal grandfather: . Hx cancer Other maternal relatives: NA. Father: at 69 years old, brain tumor. Had thick glasses Paternal aunts and their children: 1 - has bad eyesight - just had lasik performed. Paternal uncles and their children: 0. Paternal grandmother: - wore glasses, heart dx Paternal grandfather: - wore glasses, heart dx Other paternal relatives: NA. The remainder of Ford's reported family history is negative for known or suspected genetic disease, defects, malformation syndromes, chromosomal disorders, metabolic disorders, developmental delay, mental retardation, infertility, recurrent loss, stillbirth, unexplained infant , and consanguinity. GENETIC COUNSELING RISK ASSESSMENT AND DISCUSSION: We reviewed the natural history and genetic etiology of optic atrophy. We discussed the difference between syndromic and nonsyndromic causes of optic atrophy. Syndromic conditions will have ocular findings as well as other systemic findings such as hearing loss, neurological impairment, and early-onset diabetes mellitus. Optic atrophy can also be nonsyndromic, meaning that findings are restricted to the eye. The majority of suspected hereditary optic neuropathy patients (>60%) harbor pathogenic variants within OPA1, and ~3% have OPA3 pathogenic variants. Other forms of optic atrophy are part of a genetic syndrome and have systemic features. Thus, genetic testing of multiple genes associated with optic atrophy, including genes known to cause syndromes, is medically indicated to rule out a subtle presentation of syndromic optic atrophy. Additionally, some may have later-onset systemic presentation for which he could be at risk for deveoping. Phenotype-genotype studies found that 20% of DOA patients develop a more severe phenotype called DOA plus (DOA+), which is characterized by extraocular multi-systemic features, including neurosensory hearing loss, or less commonly chronic progressive external ophthalmoplegia, myopathy, peripheral neuropathy, multiple sclerosis-like illness, spastic paraplegia or cataracts. Optic atrophy can be inherited in multiple ways, the most common being an autosomal dominant pattern. In dominant conditions, a person only needs to inherit one non-working, or mutated, copy of a gene from one of their parents in order to show symptoms. This means that in someone who has genetically confirmed dominant optic atrophy, each of their first degree relatives will be at 50% risk to have inherited the same mutation. Optic atrophy can vary widely in its severity and age of presentation even between individuals of the same family. Katlyn hereditary optic neuropathy (LHON) is another form of optic atrophy. Confirming a diagnosis of LHON can only be achieved through genetic testing. The most important prognostic factor for visual recovery in patients with LHON is a favorable mutation status. Among the three primary LHON mutations, clinical phenotype is virtually indistinguishable, with the only consistent mutation-dependent clinical feature being the prognosis for spontaneous recovery of visual acuity. The 10913 mutation has a 37-71% chance of some degree of visual improvement, whereas the 35116 mutation has only a 4% chance. Patients who have a more severe LHON mutation and prognosis usually have progressive vision loss resulting in legal blindness in both eyes. While LHON typically only causes vision loss, some individuals have additional signs and symptoms. In these individuals, the condition is described as LHON plus and can include movement disorders, tremors, and abnormalities of the electrical signals that control the heartbeat (cardiac conduction defects). Risks, benefits, and limitations of genetic testing were discussed, including the possibility of a positive, negative, or inconclusive result. A positive result means a pathogenic mutation(s) was identified in one of the genes analyzed. A mutation is a change in the gene that affects function and causes disease. A negative result means that no mutations were identified in any of the genes tested; however, one or more benign/harmless DNA changes may have been identified. Such benign polymorphisms do not cause disease. An inconclusive result means one or more variants of unknown clinical significance was identified in one or more genes. A variant is an abnormality in a gene that may or may not impair the gene's function. Often the clinical significance of a variant is unknown due to a lack of data, and a variant may eventually be determined to be either a pathogenic mutation or a benign polymorphism. Ford Phelan was offered and elected to proceed with genetic testing for his eye condition. FOLLOW-UP PLAN: Blood drawn today and sent to [facility] for their combined toño and nuclear gene panel Results will be communicated by [email or web address] and a phone call when they become available (~4 weeks). A follow-up virtual or telegenetics appointment will be scheduled, if indicated. EDUCATIONAL INFORMATION SUPPLIED TO PATIENT: The patient was seen for a total of 27 minutes, greater than 50% of which was spent [id number] counseling. This plan is being carried out under the oversight of . This note will also be sent to the referring provider. Bruna Capellan ([place]), , [facility] [place] Licensed, Certified Genetic Counselor EPIC CC: documented in this encounter [facility] 07-29-2022 Note HNO ID: [id number] Author: Lilliana Kate, DO Service: ? Author Type: Physician Type: Progress Notes Filed: 07/29/2022 3:37 PM Note Text: MOG Antibody IgG Screen, Serum Negative Negative [facility] 07-26-2022 Note HNO ID: [id number] Author: Lilliana Kate, DO Service: ? Author Type: Physician Type: Progress Notes Filed: 07/29/2022 3:44 PM Note Text: Ref Range AND Units 1 d ago Homocysteine <15.1 umol/L 45.4 High Methylmalonic Acid 79 - 376 nmol/L 267 [facility] 07-25-2022 Note HNO ID: [id number] Author: Lilliana Kate, DO Service: ? Author Type: Physician Type: Progress Notes Filed: 07/25/2022 10:32 AM Note Text: Vision loss, bilateral (primary encounter diagnosis) Cecocentral scotoma, bilateral He does drink so could be a vitamin deficiency state, however, I think this may be Katlyn's hereditary optic neuropathy and will get genetic testing. I have confirmed and edited as necessary the relevant ophthalmic history, ROS, and the neuro exam findings as obtained by others. I have seen and examined this patient. I have discussed the case and the management of this patient's care with the Resident/Fellow, if applicable. I also have reviewed and agree with the assessment and plan as stated above and agree with all of its relevant components. 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 I have confirmed and edited as necessary the relevant ophthalmic history, ROS, and the neuro exam findings as obtained by others. I have seen and examined this patient. I have discussed the case and the management of this patient's care with the Resident/Fellow, if applicable. I also have reviewed and agree with the assessment and plan as stated above and agree with all of its relevant components. Lilliana Kate DO July 25, 2022 10:30 AM documented in this encounter [facility] 07-11-2022 Miscellaneous Notes Patient has been scheduled as requested. Images from the original note were not included. Contacted the patient and relayed the below message. Patient accepted the offered appointment, and a message has been sent to have the patient added. Message Received: 5 days ago DO Robin Rosas OD; Jerrica Adrian Can see Jul 23 am in [place] Previous Messages ----- Message ----- From: Robin Martinez OD Sent: 06/26/2022 12:17 PM EST To: Lilliana Kate DO Hello, This patient has bilateral optic nerve head edema and he states he was seen in ED and told that this was due to elevated hypertension. He claims the had a CT scan of the head that came back normal. I am asking for a second opinion with your clinic, otherwise I can follow up with him in a few weeks. This patient understands that he should report to the ED with an increase in symptoms. Thank you in advance for your advice, Robin documented in this encounter [facility] 06-26-2022 Note HNO ID: [id number] Author: Robin Martinez OD Service: ? Author Type: CRITICAL SYSTEMS TECHNICIAN Type: Progress Notes Filed: 06/26/2022 12:17 PM Note Text: ASSESSMENT/PLAN: 1. Blurred vision - ICD9: 368.8, ICD10: H53.8 (primary diagnosis) 2. Vision loss, bilateral - ICD9: 369.3, ICD10: H54.3 Patient states he was seen in ED and diagnosed with elevated hypertension and was told that his vision loss was related to hypertension. He states he had a CT scan of the head that came back normal. OCT: Macula Thickness: normal foveal contour both eyes, but thickening around optic nerve head both eyes. OCT: retinal nerve fiber layer: Thickening both eyes Visual field 24-2: nasal defects both eyes Send chart over to neuro-ophthalmology for second opinion. Report to ED with increase in symptoms. Otherwise, follow up here in 2 weeks to recheck vision. 3. Dry eye syndrome of bilateral lacrimal glands - ICD9: 375.15, ICD10: H04.123 Educate patient on today's findings. Recommend over the counter artificial tears twice a day, or more as needed. Recommend taking breaks from computer/phone every 20-30 minutes, and to remember to blink when using electronics. Good brands of tears are Systane, Refresh, Soothe, Blink, or Thereatears. Avoid drops for red eyes. Preservative free tears are best when using more than four times per day. Return to clinic with increase in symptoms, otherwise monitor with recheck in 2 weeks. Refer to neuro-ophthalmology for second opinion in the meantime. Robin Martinez OD [facility] 06-26-2022 History of Present illness Narrative ASSESSMENT/PLAN: 1. Blurred vision - ICD9: 368.8, ICD10: H53.8 (primary diagnosis) 2. Vision loss, bilateral - ICD9: 369.3, ICD10: H54.3 Patient states he was seen in ED and diagnosed with elevated hypertension and was told that his vision loss was related to hypertension. He states he had a CT scan of the head that came back normal. OCT: Macula Thickness: normal foveal contour both eyes, but thickening around optic nerve head both eyes. OCT: retinal nerve fiber layer: Thickening both eyes Visual field 24-2: nasal defects both eyes Send chart over to neuro-ophthalmology for second opinion. Report to ED with increase in symptoms. Otherwise, follow up here in 2 weeks to recheck vision. 3. Dry eye syndrome of bilateral lacrimal glands - ICD9: 375.15, ICD10: H04.123 Educate patient on today's findings. Recommend over the counter artificial tears twice a day, or more as needed. Recommend taking breaks from computer/phone every 20-30 minutes, and to remember to blink when using electronics. Good brands of tears are Systane, Refresh, Soothe, Blink, or Thereatears. Avoid drops for red eyes. Preservative free tears are best when using more than four times per day. Return to clinic with increase in symptoms, otherwise monitor with recheck in 2 weeks. Refer to neuro-ophthalmology for second opinion in the meantime. Robin Martinez OD documented in this encounter [facility] 06-26-2022 Instructions Robin Martinez OD - 06/26/2022 11:28 AM EST Recommend over the counter artificial tears twice a day, or more as needed. Recommend taking breaks from computer/phone every 20-30 minutes, and to remember to blink when using electronics. Good brands of tears are Systane, Refresh, Soothe, Blink, or Thereatears. Avoid drops for red eyes. Preservative free tears are best when using more than four times per day. Return to clinic with increase in symptoms, otherwise monitor as needed. documented in this encounter [facility] 08-13-2021 History of Past i llness Narrative Problem Noted Date Resolved Date Hyponatremia 08/13/2021 08/13/2021 Alcohol withdrawal 08/13/2021 08/13/2021 Agitation 08/11/2021 08/13/2021 Overview: Suspect alcohol withdrawal as in note. Overnight precedex/phenobarb taper Today calm, A&O x3. Conversant, pleasant. Cont stop precedex. Continue phenobarbital protocol/taper. Thiamine Can d/c to floor Dehydration 08/09/2021 08/13/2021 Nausea 08/09/2021 08/13/2021 Hypokalemia 08/09/2021 08/13/2021 documented as of this encounter (statuses as of 06/26/2022) [facility]22 History of Past illness Narrative* Problem Noted Date Resolved Date Hyponatremia 08/13/2021 08/13/2021 Alcohol withdrawal 08/13/2021 08/13/2021 Agitation 08/11/2021 08/13/2021 Overview: Suspect alcohol withdrawal as in note. Overnight precedex/phenobarb taper Today calm, A&O x3. Conversant, pleasant. Cont stop precedex. Continue phenobarbital protocol/taper. Thiamine Can d/c to floor Dehydration 08/09/2021 08/13/2021 Nausea 08/09/2021 08/13/2021 Hypokalemia 08/09/2021 08/13/2021 documented as of this encounter (statuses as of 07/11/2022) [facility] History of Past illness Narrative* Problem Noted Date Resolved Date Hyponatremia 08/13/2021 08/13/2021 Alcohol withdrawal 08/13/2021 08/13/2021 Agitation 08/11/2021 08/13/2021 Overview: Suspect alcohol withdrawal as in note. Overnight precedex/phenobarb taper Today calm, A&O x3. Conversant, pleasant. Cont stop precedex. Continue phenobarbital protocol/taper. Thiamine Can d/c to floor Dehydration 08/09/2021 08/13/2021 Nausea 08/09/2021 08/13/2021 Hypokalemia 08/09/2021 08/13/2021 documented as of this encounter (statuses as of 07/25/2022) [facility] History of Past illness Narrative* Problem Noted Date Resolved Date Hyponatremia 08/13/2021 08/13/2021 Alcohol withdrawal 08/13/2021 08/13/2021 Agitation 08/11/2021 08/13/2021 Overview: Suspect alcohol withdrawal as in note. Overnight precedex/phenobarb taper Today calm, A&O x3. Conversant, pleasant. Cont stop precedex. Continue phenobarbital protocol/taper. Thiamine Can d/c to floor Dehydration 08/09/2021 08/13/2021 Nausea 08/09/2021 08/13/2021 Hypokalemia 08/09/2021 08/13/2021 documented as of this encounter (statuses as of 08/02/2022) [facility] History of Past illness Narrative* Problem Noted Date Resolved Date Hyponatremia 08/13/2021 08/13/2021 Alcohol withdrawal 08/13/2021 08/13/2021 Agitation 08/11/2021 08/13/2021 Overview: Suspect alcohol withdrawal as in note. Overnight precedex/phenobarb taper Today calm, A&O x3. Conversant, pleasant. Cont stop precedex. Continue phenobarbital protocol/taper. Thiamine Can d/c to floor Dehydration 08/09/2021 08/13/2021 Nausea 08/09/2021 08/13/2021 Hypokalemia 08/09/2021 08/13/2021 documented as of this encounter (statuses as of 08/16/2022) [facility] History of Past illness Narrative* Problem Noted Date Resolved Date Hyponatremia 08/13/2021 08/13/2021 Alcohol withdrawal 08/13/2021 08/13/2021 Agitation 08/11/2021 08/13/2021 Overview: Suspect alcohol withdrawal as in note. Overnight precedex/phenobarb taper Today calm, A&O x3. Conversant, pleasant. Cont stop precedex. Continue phenobarbital protocol/taper. 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 Liver dysfunction Unspecified disorder of liver documented in this encounter [facility] [employer] Phone: evaluation note* Diagnosis Complaining of cough documented in this encounter [facility] [employer] Phone: evalctfcrx note* Diagnosis Vision loss, bilateral- Primary Unqualified visual loss, both eyes Cecocentral scotoma, 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 [facility] Diagnosis Vision loss, bilateral Unqualified visual loss, both eyes Cecocentral scotoma, bilateral [facility] Diagnosis Closed fracture of one rib, unspecified laterality, initial encounter- Primary Fall, initial encounter Closed fracture of multiple ribs of left side, initial encounter Lumbar disc herniation Displacement of lumbar intervertebral disc without myelopathy Hypokalemia Hypopotassemia Closed fracture of one rib, unspecified laterality, initial encounter Closed fracture of multiple ribs of left side with delayed healing, subsequent encounter Fall, initial encounter Multiple closed fractures of ribs of left side Essential hypertension Unspecified essential hypertension documented in this encounter [facility] Work Phone: Evaluation note* Diagnosis Fall, initial encounter- Primary Syncope, unspecified syncope type Contusion of rib on right side, initial encounter documented in this encounter [facility] Work Phone: Hospital Discharge instructions* Attachments The following attachments cannot be sent through Care Everywhere. * How to use an incentive spirometer (Peruvian) * Syncope (fainting) (Peruvian) [facility] Summary Purpose Family History No Family History Records FoundNo Family History Records FoundNo Family History Records FoundNo Family History Records FoundNo Family History Records FoundNo Family History Records FoundNo Family History Records FoundNo Family History Records FoundNo Family History Records FoundNo Family History Records Found Advance Directives No Advanced Directives Records FoundLatest Code Status on File Code Status Date Activated Date Inactivated Comments Full Code 04/04/2023 11:07 AM Question Answer Comments Plan of Care: Code Status Discussion Completed Decision Maker: Patient Latest Code Status on File Code Status Date Activated Date Inactivated Comments Full Code 04/04/2023 11:07 AM 04/11/2023 4:09 PM Question Answer Comments Plan of Care: Code Status Discussion Completed Decision Maker: Patient Date Activated Date Inactivated Comments 04/04/2023 11:07 AM 04/11/2023 4:09 PM Question Answer Comments Plan of Care: Code Status Discussion Completed Decision Maker: Patient Medications Administered Section Active Administered Medications - up to 3 most recent administrations Medication Order MAR Action Action Date Dose Rate Site PHENYLephrine 2.5 % 1 Drop (AK-DILATE, LORETTA-SYNEPHRINE) 1 Drop, BOTH EYES, DIRECTED, Starting on Fri06/26/22 at 1130, Until Fri06/26/22 at 232, Administer for dilation PROTECT FROM LIGHT Given 06/26/2022 11:30 AM EST 1 Drop tropicamide 1 % 1 Drop (MYDRIACYL) 1 Drop, BOTH EYES, DIRECTED, Starting on Fri06/26/22 at 1130, Until Fri06/26/22 at 2329, Administer for dilation Given 06/26/2022 11:30 AM EST 1 Drop Reason for Referral Specialty Diagnoses / Procedures Referred By Mariela tarango Referred To Contact Diagnoses Vision loss, bilateral Cecocentral scotoma, bilateral Procedures CONSULT TO OPHTHALMIC GENETIC COUNSELING MEDICAL GENETICS COUNSELING EACH 30 MINUTES Lilliana Kate DO [address] [place] [address] [facility] [address] [place] [address] Referral ID Status Reason Start Date Expiration Date Visits Requested Visits Authorized [id number] Pending Review PCP Requested Referral Auto-Generate d Referral 07/25/2022 07/25/2023 1 1 Additional Source Comments (unrecognized sect ion and content) No Status Records FoundNo Status Records FoundNo Status Records FoundNo Status Records FoundNo Status Records FoundNo Status Records FoundNo Status Records FoundNo Status Records FoundNo Status Records FoundNo Status Records Found INFORMATION SOURCE (unrecogn ized section and content) DATE CREATED AUTHOR 12/05/2017 [facility] DATE CREATED AUTHOR AUTHOR'S ORGANIZ ATION 05/20/2021 [facility] DATE CREATED AUTHOR AUTHOR'S ORGANIZ ATION 06/26/2022 [facility] nt DATE CREATED AUTHOR AUTHOR'S ORGANIZ ATION 08/17/2022 [facility] DATE CREATED AUTHOR AUTHOR'S ORGANIZ ATION 11/11/2022 [facility] DATE CREATED AUTHOR AUTHOR'S ORGANIZ ATION 05/17/2023 [facility] DATE CREATED AUTHOR AUTHOR'S ORGANIZ ATION 01/30/2024 [facility] DATE CREATED AUTHOR AUTHOR'S ORGANIZ ATION 01/25/2025 [facility] DATE CREATED AUTHOR AUTHOR'S ORGANIZ ATION 01/28/2025 [facility] DATE CREATED AUTHOR AUTHOR'S ORGANIZ ATION 04/14/2025 [facility] Source Comments (unrecognize d section and content) In the event this informatio n is protected by the Federal Confidentiality of Alcohol and Drug Abuse Patient Records regulations: The Federal rules restrict any use of the information to criminally investigate or prosecute any alcohol or drug abuse patient.[facility] the event this information is protected by the Federal Confidentiality of Alcohol and Drug Abuse Patient Records regulations: The Federal rules restrict any use of the information to criminally investigate or prosecute any alcohol or drug abuse patient.[facility] the event this information is protected by the Federal Confidentiality of Alcohol and Drug Abuse Patient Records regulations: The Federal rules restrict any use of the information to criminally investigate or prosecute any alcohol or drug abuse patient.[facility] the event this information is protected by the Federal Confidentiality of Alcohol and Drug Abuse Patient Records regulations: The Federal rules restrict any use of the information to criminally investigate or prosecute any alcohol or drug abuse patient.[facility] the event this information is protected by the Federal Confidentiality of Alcohol and Drug Abuse Patient Records regulations: The Federal rules restrict any use of the information to criminally investigate or prosecute any alcohol or drug abuse patient.[facility] the event this information is protected by the Federal Confidentiality of Alcohol and Drug Abuse Patient Records regulations: The Federal rules restrict any use of the information to criminally investigate or prosecute any alcohol or drug abuse patient.[facility] Reason for Visit (unrecogniz ed section and content) Reason Comments Blurry Vision Both Eyes Reason Comments Appointment Specialty Diagnoses / Procedures Referred By Contac t Referred To Contact Radiology Diagnoses Liver dysfunction Procedures US ABDOMEN LIMITED US ABDOMEN LIMITED US LIVER SPLEEN Mark Sharpe MD [address] [place] [address] Referral ID Status Reason Start Date Expiration Date V isits Requested Visits Authorized [id number] Pending Review 07/05/2022 07/05/2023 1 1 Reason Comments Blurred Vision Both Eyes Reason Comments Optic atrophy Specialty Diagnoses / Procedures Referred By Contac t Referred To Contact Diagnoses Vision loss, bilateral Cecocentral scotoma, bilateral Procedures CONSULT TO OPHTHALMIC GENETIC COUNSELING MEDICAL GENETICS COUNSELING EACH 30 MINUTES Lilliana Kate DO [address] [place] [address] [facility] [address] [place] [address] Referral ID Status Reason Start Date Expiration Date Visits Requested Visits Authorized [id number] Pending Review PCP Requested Referral Auto-Generate d Referral 07/25/2022 07/25/2023 1 1 Reason Comments Results Reason Comments Fall Pt slipped getting o ut of the shower and fell forward, hit left side of body on the bath tub. Specialty Diagnoses / Procedures Referred By Contac t Referred To Contact Diagnoses Hypokalemia Lumbar disc herniation Fall, initial encounter Closed fracture of one rib, unspecified laterality, initial encounter Closed fracture of multiple ribs of left side, initial encounter Procedures ER ADMIT Chris Garcia MD [address] [place] [address] [address] [place] [address] Referral ID Status Reason Start Date Expiration Date Visits Re quested Visits Authorized [id number] 1 1 Specialty Diagnoses / Procedures Referred By Contac t Referred To Contact Diagnoses Hypokalemia Lumbar disc herniation Fall, initial encounter Closed fracture of one rib, unspecified laterality, initial encounter Closed fracture of multiple ribs of left side, initial encounter Procedures ER ADMIT Chris Garcia MD [address] [place] [address] [facility] [address] [place] [address] Reason Comments Fall Care Teams (unrecognized sec tion and content) Quality Tech Relationship Specialty Start Date End Date Mark Sharpe MD [address] [place] [id number] PCP - General Internal Medicine 07/05/22 Quality Tech Relationship Specialty Start Date End Date Mark Sharpe MD [address] [place] [id number] PCP - General Internal Medicine 07/05/22 Quality Tech Relationship Specialty Start Date End Date Mark Sharpe MD [address] [place] [id number] PCP - General Internal Medicine 07/05/22 Quality Tech Relationship Specialty Start Date End Date Liz Polk MD [address] [place] [address] PCP - General Internal Medicine 01/20/25 Scheduled Active and Recently Administ ered Medications (unrecognized section and content) Medication Order 04/09/2023 04/10/2023 04/11/2023 acetaminophen (Tylenol) tablet 975 mg 975 mg, oral, Every 8 hours, First dose (after last modification) on 04/06/23 at 1700, If ordered PRN for pain, nurse is permitted to administer this medication for higher pain scores based on patient preference? Yes 0100 (Not Given - Provider: Hanane De La Rosa RN - Reason: Patient/family refused)0900 (Due)1050 (JUL Hold - Provider: Automatic Transfer Provider - Reason: Unreviewed Transfer Orders)1105 (JUL Unhold - Provider: Jorge Almodovar PA-C)1648 (Given - Provider: Zeus Cai RN) 0156 (Given - Provider: Maxine Lobo RN)0811 (Given - Provider: Nessa Miner)1601 (Given - Provider: Nessa Miner) 0016 (Given - Provider: Estiven De La Rosa RN)0844 (Given - Provider: Myrna Casper RN)1700 (Due) ceFAZolin in dextrose (iso-os) (Ancef) IVPB 2 g (COMPLETED) 2 g, intravenous, Administer over 30 Minutes, Once, On Fri04/09/23 at 0600, For 1 dose, Intraprocedure, Administer within 60 minutes prior to incision. premix bag, Dosing of this medication varies based on severity of illness. Does this patient have sepsis or concern for sepsis (probable or documented infection plus systemic manifestations of infection)? No, Suspected Indication (Select all that apply): Surgical Prophylaxis 0750 (Given - Provider: Luis Greer, ROUTE RETURNER-[employer] PLAN SALES HOST/HOSTESS) docusate sodium (Colace) capsule 100 mg 100 mg, oral, 2 times daily, First dose on Key 04/10/23 at 1015 1058 (Given - Provider: Jody Flores RN)2020 (Given - Provider: Estiven De La Rosa RN) 0843 (Given - Provider: Myrna Casper RN)2100 (Due) fentaNYL PF (Sublimaze) injection 25 mcg (COMPLETED) 25 mcg, intravenous, Once, On Fri04/09/23 at 1715, For 1 dose 1717 (Given - Provider: Zeus Cai RN) folic acid (Folvite) tablet 1 mg 1 mg, oral, Daily, First dose on Fri04/04/23 at 1245 0900 (Due)1050 (JUL Hold - Provider: Automatic Transfer Provider - Reason: Unreviewed Transfer Orders)1105 (JUL Unhold - Provider: Jorge Almodovar PA-C) 0811 (Given - Provider: Nessa Miner) 0843 (Given - Provider: Myrna Casper RN) guaiFENesin (Mucinex) 12 hr tablet 600 mg 600 mg, oral, 2 times daily, First dose on Fri04/09/23 at 2100, Do not crush, chew, or split. 2131 (Given - Provider: Maxine Lobo RN) 08 (Given - Provider: Nessa Miner)2020 (Given - Provider: Estiven De La Rosa, RAJ) 0844 (Given - Provider: Myrna Casper RN)2100 (Due) heparin (porcine) injection 5,000 Units 5,000 Units, subcutaneous, Every 8 hours, First dose on Fri04/09/23 at 1115 1115 (Due)1315 (Held by provider - Provider: Jorge Almodovar PA-C - Reason: Post-procedure)1915 (Not Given - Provider: Maxine Lobo RN - Reason: See Provider Order) 0315 (Not Given - Provider: Maxine Lobo RN - Reason: See Provider Order)1014 (Unheld by provider - Provider: Bora Barney APRN-PIT MANAGER)1058 (Given - Provider: Jody Flores RN)1825 (Given - Provider: Myrna Casper RN) 0550 (Given - Provider: Estiven De La Rosa RN)1400 (Due - Provider: Adán Winn, ClaudioD)2200 (Due - Provider: Claudio BonillaD) hydroCHLOROthiazide (HYDRODiuril) tablet 12.5 mg 12.5 mg, oral, Daily, First dose on Fri04/04/23 at 1245 0900 (Due)1050 (MAR Hold - Provider: Automatic Transfer Provider - Reason: Unreviewed Transfer Orders)1105 (MAR Unhold - Provider: Jorge Almodovar PA-C) 0811 (Given - Provider: Nessa Miner) 0844 (Given - Provider: Myrna Casper RN) ketamine (Ketalar) solution 25 mg (COMPLETED) 25 mg, intravenous, Once, On Fri04/09/23 at 1800, For 1 dose, If IM, give deeply into a large muscle mass. If ordered IV or DC, must dilute 1:1 prior to administration. 1828 (Given - Provider: Zeus Cai RN - Comment: Dejon Dacosta given) ketorolac (Toradol) injection 15 mg () 15 mg, intravenous, Every 6 hours, First dose on 04/07/23 at 0815, For 3 days 0215 (Given - Provider: Hanane De La Rosa RN)0815 (Due)1050 (JUL Hold - Provider: Automatic Transfer Provider - Reason: Unreviewed Transfer Orders)1105 (JUL Unhold - Provider: Jorge Almodovar PA-C)1323 (Given - Provider: Zeus Cai RN)2052 (Given - Provider: Maxine Lobo, RAJ) 0156 (Given - Provider: Maxine Lobo RN) ketorolac (Toradol) injection 15 mg 15 mg, intravenous, Every 6 hours, First dose (after last reorder) on Key 04/10/23 at 1200, For 2 days 1111 (Given - Provider: Jody Flores RN)1825 (Given - Provider: Myrna Casper RN) 0018 (Given - Provider: Estiven De La Rosa RN)0550 (Given - Provider: Estiven De La Rosa RN)1158 (Given - Provider: Myrna Casper RN)1800 (Due) ketorolac (Toradol) injection 30 mg (COMPLETED) 30 mg, intravenous, Once, On Fri04/09/23 at 1045, For 1 dose, Intraprocedure 1025 (Given - Provider: Karen Willard RN) lidocaine 4 % patch 1 patch 1 patch, transdermal, Administer over 12 Hours, Daily, First dose on Fri04/06/23 at 0900, Apply to left. Patch will remain on for 12 hours, then removed for [address] patch directly over any surgical incisions or wounds. 1050 (JUL Hold - Provider: Automatic Transfer Provider - Reason: Unreviewed Transfer Orders)1105 (JUL Unhold - Provider: Jorge Almodovar PA-C)1324 (Medication Applied - Provider: Zesu Cai RN) 0124 (Medication Removed - Provider: Maxine Lobo RN)0809 (Medication Applied - Provider: Nessa Miner)2008 (Medication Removed - Provider: Estiven De La Rosa RN) 0843 (Medication Applied - Provider: Myrna Casper RN)2042 (Due: Medication Removed - Provider: Myrna Casper RN) lisinopril tablet 20 mg 20 mg, oral, Daily, First dose on Fri04/04/23 at 1245 0900 (Due)1050 (JUL Hold - Provider: Automatic Transfer Provider - Reason: Unreviewed Transfer Orders)1105 (MAR Unhold - Provider: Jorge Almodovar PA-C) 0811 (Given - Provider: Nessa Miner) 0844 (Given - Provider: Myrna Casper RN) magnesium oxide (Mag-Ox) tablet 800 mg 800 mg, oral, Daily, First dose on Fri04/05/23 at 0900 1050 (JUL Hold - Provider: Automatic Transfer Provider - Reason: Unreviewed Transfer Orders)1105 (MAR Unhold - Provider: Jorge Almodovar PA-C)1324 (Given - Provider: Zeus Cai RN) 0810 (Given - Provider: Nessa Miner) 0845 (Given - Provider: Myrna Casper RN) melatonin tablet 6 mg 6 mg, oral, Nightly, First dose on Fri04/04/23 at 2330 1050 (JUL Hold - Provider: Automatic Transfer Provider - Reason: Unreviewed Transfer Orders)1105 (MAR Unhold - Provider: Jorge Almodovar PA-C)213 (Given - Provider: Maxine Lobo RN) 2020 (Given - Provider: Estiven De La Rosa RN) 2100 (Due) methocarbamol (Robaxin) tablet 1,000 mg () 1,000 mg, oral, Every 8 hours scheduled, First dose on Fri04/04/23 at 2200, For 17 doses 0600 (Not Given - Provider: Hanane De La Rosa RN - Reason: NPO)1050 (MAR Hold - Provider: Automatic Transfer Provider - Reason: Unreviewed Transfer Orders)1105 (MAR Unhold - Provider: Jorge Almodovar PA-C)1321 (Given - Provider: Zeus Cai RN)213 (Given - Provider: Maxine Lobo RN) 0640 (Given - Provider: Maxine Lobo RN) multivitamin with minerals 1 tablet 1 tablet, oral, Daily, First dose on Fri04/04/23 at 1330 0900 (Due)1050 (JUL Hold - Provider: Automatic Transfer Provider - Reason: Unreviewed Transfer Orders)1105 (MAR Unhold - Provider: Jorge Almodovar PA-C) 0812 (Given - Provider: Nessa Miner) 0843 (Given - Provider: Myrna Casper RN) nicotine (Nicoderm CQ) 14 mg/24 hr patch 1 patch(Linked Group 1) 1 patch, transdermal, Administer over 24 Hours, Daily, First dose on Fri05/21/23 at 0900, For 14 days nicotine (Nicoderm CQ) 21 mg/24 hr patch 1 patch(Linked Group 1) 1 patch, transdermal, Administer over 24 Hours, Daily, First dose on Fri04/09/23 at 1130, For 42 days 1325 (Medication Applied - Provider: Zeus Cai RN) 0809 (Medication Applied - Provider: Nessa Miner) 0809 (Medication Removed - Provider: Myrna Casper RN)0844 (Medication Applied - Provider: Myrna Casper RN) nicotine (Nicoderm CQ) 7 mg/24 hr patch 1 patch(Linked Group 1) 1 patch, transdermal, Administer over 24 Hours, Daily, First dose on Fri06/04/23 at 0900, For 14 days pantoprazole (ProtoNix) EC tablet 40 mg 40 mg, oral, Daily before breakfast, First dose on Fri04/11/23 at 0600, Use pantoprazole tablet if patient can take meds orally. Do not crush, chew, or split. 0550 (Given - Provider: Estiven De La Rosa RN) PHENobarbitaL (Luminal) tablet 32.4 mg(Linked Group 2) 32.4 mg, oral, 3 times daily, First dose on Fri04/09/23 at 0900, For 6 doses, Days 5 and 6 0900 (Due)1050 (MAR Hold - Provider: Automatic Transfer Provider - Reason: Unreviewed Transfer Orders)1105 (MAR Unhold - Provider: Jorge Almodovar PA-C)1333 (Given - Provider: Zeus Cai RN)205 (Given - Provider: Maxine Lobo RN) 0810 (Given - Provider: Nessa Miner)1546 (Given - Provider: Jody Flores, RAJ)2020 (Given - Provider: Estiven De La Rosa RN) polyethylene glycol (Glycolax, Miralax) packet 17 g 17 g, oral, Daily, First dose on Fri04/09/23 at 1115, Bowel Regimen - for prevention of constipation. 1324 (Given - Provider: Zeus Cai RN) 0820 (Given - Provider: Jody Flores, RAJ) 0843 (Given - Provider: Myrna Casper RN) sertraline (Zoloft) tablet 100 mg 100 mg, oral, Daily, First dose on Fri04/04/23 at 1115 1050 (JUL Hold - Provider: Automatic Transfer Provider - Reason: Unreviewed Transfer Orders)1105 (JUL Unhold - Provider: Jorge Almodovar PA-C)1322 (Given - Provider: Zeus Cai RN) 0810 (Given - Provider: Nessa Miner) 0843 (Given - Provider: Myrna Casper RN) thiamine (Vitamin B-1) tablet 100 mg 100 mg, oral, Daily, First dose on Fri04/04/23 at 1115 1050 (MAR Hold - Provider: Automatic Transfer Provider - Reason: Unreviewed Transfer Orders)1105 (MAR Unhold - Provider: Jorge Almodovar PA-C)1322 (Given - Provider: Zeus Cai RN) 0811 (Given - Provider: Nessa Miner) 0843 (Given - Provider: Myrna Casper RN) Continuous Medication Order 04/09/2023 04/10/2023 04/11/2023 hydromorphone COMPENSATOR 0.5 mg/mL in NS opioid naive (CANCELED) Nurse Loading Dose: Not Ordered, Patient Bolus Dose: 0.2 mg, Lockout Interval: 10 Minutes, Basal Rate: 0 mg/hr, One Hour Dose Limit: 1.2 mg, intravenous, Continuous, Starting on Fri04/09/23 at 1900 1900 (New Syringe/Cartridge - Provider: Maxine Lobo RN - Comment: no barcode on the COMPENSATOR pump syringe to scan it) 1045 (Stopped - Provider: Jody Flores, RAJ) PRN Medication Order 04/09/2023 04/10/2023 04/11/2023 albuterol 90 mcg/actuation inhaler 2 puff 2 puff, inhalation, Every 4 hours PRN, shortness of breath, wheezing, Starting on Fri04/04/23 at 1102, Shake well before use. 1050 (JUL Hold - Provider: Automatic Transfer Provider - Reason: Unreviewed Transfer Orders)1105 (JUL Unhold - Provider: Jorge Almodovar PA-C) BUPivacaine-EPINEPHrine (Marcaine w/EPI) 0.25 %-1:200,000 injection (CANCELED) As needed, Starting on Fri04/09/23 at 0810, Intraprocedure 0810 (Given - Provider: Isaac Cox MD - Comment: USED NEEDED T/O PROCEDURE) HYDROmorphone (Dilaudid) injection 0.5 mg (CANCELED) 0.5 mg, intravenous, Every 2 hour PRN, pain breakthrough, pain severe (7-10), first line, Starting on Fri04/07/23 at 0818 0918 (Given - Provider: Luis Greer, ROUTE RETURNER-PARTY PLAN SALES HOST/HOSTESS)1050 (JUL Hold - Provider: Automatic Transfer Provider - Reason: Unreviewed Transfer Orders)1105 (JUL Unhold - Provider: Jorge Almodovar PA-C) HYDROmorphone (Dilaudid) injection 0.5 mg (CANCELED) 0.5 mg, intravenous, Every 5 min PRN, pain moderate (4-6), first line, Starting on Fri04/09/23 at 0833, Recovery (only), Max total of 4 mg regardless of dose. 1000 (Given - Provider: Karen Willard RN)1005 (Given - Provider: Karen Willard RN) HYDROmorphone (Dilaudid) injection 0.5 mg (CANCELED) 0.5 mg, intravenous, Every 2 hour PRN, pain severe (7-10), second line, pain breakthrough, Starting on Fri04/09/23 at 1105, Phase II/On Unit 1648 (Given - Provider: Zeus Cai, RAJ) HYDROmorphone PF (Dilaudid) injection 0.2 mg 0.2 mg, intravenous, Every 2 hour PRN, pain breakthrough, Starting on Key 04/10/23 at 1223 2132 (Given - Provider: Estiven De La Rosa, RN) 0942 (Given - Provider: Myrna Casper, RAJ) naloxone (Narcan) injection 0.2 mg 0.2 mg, intravenous, As needed, respiratory depression, Once PRN patient is unarousable, and respiratory rate less than 8, Starting on Fri04/09/23 at 1850, HOLD COMPENSATOR Infusion and notify H.O. immediately Non-Formulary Medication (CANCELED) As needed, Starting on Fri04/09/23 at 0900, Intraprocedure 0900 (Given - Provider: Isaac Cox MD - Comment: 3 GRAMS ALESSIO, USED NEEDED T/O PROCEDURE) ondansetron (Zofran) injection 4 mg(Linked Group 3) 4 mg, intravenous, Every 8 hours PRN, nausea/vomiting, first line, Starting on Fri04/04/23 at 1106, 1st Line. Give IV if patient is unable to take orally. If inadequate response within 60 minutes, proceed to next-line agent for same PRN reason or contact provider if no further options ordered. When administering via IV Push, administer over 3-5 minutes. 0921 (Given - Provider: Luis Greer APRN-PARTY PLAN SALES HOST/HOSTESS)1050 (JUL Hold - Provider: Automatic Transfer Provider - Reason: Unreviewed Transfer Orders)1105 (MAR Unhold - Provider: Jorge Almodovar PA-C) ondansetron ODT (Zofran-ODT) disintegrating tablet 4 mg(Linked Group 3) 4 mg, oral, Every 8 hours PRN, nausea/vomiting, first line, Starting on Fri04/04/23 at 1106, 1st Line. Patient should allow tablet to dissolve on tongue. Do not remove from blister pack until just before administering. If inadequate response within 60 minutes, proceed to next-line agent for same PRN reason or contact provider if no further options ordered. 0921 (See Alternative - Provider: Luis Greer APRN-PARTY PLAN SALES HOST/HOSTESS)1050 (MAR Hold - Provider: Automatic Transfer Provider - Reason: Unreviewed Transfer Orders)1105 (JUL Unhold - Provider: Jorge Almodovar PA-C) oxyCODONE (Roxicodone) immediate release tablet 10 mg 10 mg, oral, Every 4 hours PRN, pain severe (7-10), first line, Starting on Fri04/09/23 at 1105, If ordered PRN for pain, nurse is permitted to administer this medication for higher pain scores based on patient preference? Yes 1600 (Given - Provider: Nessa Miner)2017 (Given - Provider: Estiven De La Rosa RN) 0019 (Given - Provider: Estiven De La Rosa RN)0844 (Given - Provider: Myrna Casper RN) oxyCODONE (Roxicodone) immediate release tablet 5 mg 5 mg, oral, Every 4 hours PRN, pain moderate (4-6), first line, Starting on Fri04/09/23 at 1105, If ordered PRN for pain, nurse is permitted to administer this medication for higher pain scores based on patient preference? Yes 0839 (Not Given - Provider: Myrna Casper RN - Reason: Other - Comment: gave 10mg oxycodone ordered under other order set.) oxygen (O2) therapy (CANCELED) inhalation, Continuous PRN - O2/gases, other, Starting on Fri04/04/23 at 1103, Device: Nasal Cannula, Rate in liters per minute: 2 LPM, Keep O2 Sat Above: 92% 0940 (Rate/Dose Verify - Provider: Karen Willard RN)0950 (Rate/Dose Change - Provider: Karen Willard RN)1050 (JUL Hold - Provider: Automatic Transfer Provider - Reason: Unreviewed Transfer Orders)1105 (JUL Unhold - Provider: Jorge Almodovar PA-C)2000 (Rate/Dose Verify - Provider: Maxine Lobo RN) 0000 (Rate/Dose Verify - Provider: Maxine Lobo RN)0400 (Rate/Dose Verify - Provider: Maxine Lobo RN) oxygen (O2) therapy inhalation, Continuous PRN - O2/gases, other, Starting on Fri04/09/23 at 1105, Wean oxygen as tolerated, discontinue when room air pulse oximetry measures greater than 90%., Device: Nasal Cannula, Rate in liters per minute: 4 LPM, Keep O2 Sat Above: 90% sodium chloride 0.9 % irrigation solution (CANCELED) As needed, Starting on Fri04/09/23 at 0810, Intraprocedure 0810 (Given - Provider: Isaac Cox MD - Comment: USED AA NEEDED T/O PROCEDURE) Linked Groups Order Group 1: nicotine (Nicoderm CQ) 21 mg/24 hr patch 1 patchJump to med 1 patch, transdermal, Administer over 24 Hours, Daily, First dose on Fri04/09/23 at 1130, For 42 days Followed by nicotine (Nicoderm CQ) 14 mg/24 hr patch 1 patchJump to med 1 patch, transdermal, Administer over 24 Hours, Daily, First dose on Fri05/21/23 at 0900, For 14 days Followed by nicotine (Nicoderm CQ) 7 mg/24 hr patch 1 patchJump to med 1 patch, transdermal, Administer over 24 Hours, Daily, First dose on Fri06/04/23 at 0900, For 14 days Group 2: PHENobarbitaL (Luminal) tablet 97.2 mg (COMPLETED) 97.2 mg, oral, 3 times daily, First dose on Fri04/05/23 at 1030, For 6 doses
Days 1 and 2
Followed by PHENobarbitaL (Luminal) tablet 64.8 mg (COMPLETED) 64.8 mg, oral, 3 times daily, First dose on Fri04/07/23 at 0900, For 6 doses
Days 3 and 4
Followed by PHENobarbitaL (Luminal) tablet 32.4 mgJump to med 32.4 mg, oral, 3 times daily, First dose on Fri04/09/23 at 0900, For 6 doses
Days 5 and 6
Group 3: ondansetron ODT (Zofran-ODT) disintegrating tablet 4 mgJump to med 4 mg, oral, Every 8 hours PRN, nausea/vomiting, first line, Starting on Fri04/04/23 at 1106
1st Line. Patient should allow tablet to dissolve on tongue. Do not remove from blister pack until just before administering. If inadequate response within 60 minutes, proceed to next-line agent for same PRN reason or contact provider if no further options ordered.
Or ondansetron (Zofran) injection 4 mgJump to med 4 mg, intravenous, Every 8 hours PRN, nausea/vomiting, first line, Starting on Fri04/04/23 at 1106
1st Line. Give IV if patient is unable to take orally. If inadequate response within 60 minutes, proceed to next-line agent for same PRN reason or contact provider if no further options ordered. When administering via IV Push, administer over 3-5 minutes.
Scheduled Medication Order 01/19/2025 01/20/2025 01/21/2025 iohexol (OMNIPaque) 350 mg iodine/mL solution 100 mL (COMPLETED) 100 mL, intravenous, Once in imaging, Starting on Key 01/20/25 at 2336, For 1 dose 2338 (Given - Provider: Maynor Dawson) lactated Ringer's bolus 1,000 mL (COMPLETED) 1,000 mL, intravenous, at 999 mL/hr, Administer over 1 Hours, Once, On Fri01/21/25 at 0155, For 1 dose 0158 (New Bag - Provider: Iveth Vasquez RN)0604 (Stopped - Provider: Iveth Vasquez, RAJ) magnesium sulfate 2 g in sterile water for injection 50 mL (COMPLETED) 2 g, intravenous, at 25 mL/hr, Administer over 2 Hours, Once, On Fri01/21/25 at 0255, For 1 dose 0319 (New Bag - Provider: Iveth Vasquez RN)0512 (Stopped - Provider: Iveth Vasquez, RAJ) morphine injection 4 mg (COMPLETED) 4 mg, intravenous, Once, On Fri01/21/25 at 0015, For 1 dose 0022 (Given - Provid er: Iveth Vasquez RN) morphine injection 4 mg (COMPLETED) 4 mg, intravenous, Once, On Fri01/21/25 at 0255, For 1 dose 0318 (Given - Provid er: Iveth Vasquez RN) ondansetron (Zofran) injection 4 mg (COMPLETED) 4 mg, intravenous, Once, On Fri01/21/25 at 0015, For 1 dose, When administering via IV Push, administer over 3-5 minutes. 0022 (Given - Provid er: Iveth Vasquez RN) oxyCODONE (Roxicodone) immediate release tablet 5 mg (COMPLETED) 5 mg, oral, Once, On Fri01/21/25 at 0545, For 1 dose, If ordered PRN for pain, nurse is permitted to administer this medication for higher pain scores based on patient preference? Yes 0607 (Given - Provid er: Iveth Vasquez RN) potassium chloride (Klor-Con) packet 40 mEq (COMPLETED) 40 mEq, oral, Once, On Fri01/21/25 at 0040, For 1 dose, Dissolve each packet in 4 ounces of water = 5 mEq per 1 oz fluid. 0157 (Given - Provid er: Iveth Vasquez RN) potassium phosphates 15 mmol in dextrose 5% 250 mL IV (COMPLETED) 15 mmol, intravenous, at 63.8 mL/hr, Administer over 4 Hours, Once, On Fri01/21/25 at 0130, For 1 dose, Each 3 mmol contains 4.4 mEq potassium. 0158 (New Bag - Provider: Iveth Vasquez RN)0603 (Stopped - Provider: Iveth Vasquez RN) FOR RECORDS PERTAINING TO PATIENTS WHO ARE OR HAVE BEEN ENROLLED IN A CHEMICAL DEPENDENCY/SUBSTANCEABUSE PROGRAM, SOME INFORMATION MAY BE OMITTED. This clinical summary was aggregated from multiple sources. Caution should be exercised in using it in the provision of clinical care. This summary normalizes information from multiple sources, and as a consequence, information in this document may materially change the coding, format and clinical context of patient data. In addition, data may be omitted in some cases. CLINICAL DECISIONS SHOULD BE BASED ON THE PRIMARY CLINICAL RECORDS. [employer] [facility]. provides no warranty or guarantee of the accuracy or completeness of information in this document.
== END | disposition home or self-care (01) ==
LOC: US 09:32
DX: R74.8 Abnormal levels of other serum enzymes (principal)
CPT/HCPCS: 76705; 76981